=== PATIENT | male | born 1940 | race Caucasian/White ===

== ENCOUNTER 2016-05-12 08:44 | Day surgery (SDC) | payer MEDICARE ==
[2016-04-30 09:49] VITALS: BMI 34.0
[~2016-05-12 08:44] MED LIST: LACTATED RINGERS 1,000 ML IV SCH
[2016-05-12 09:55] LABS: Glucose,Whole Blood 99 mg/dL (75-99)
[2016-05-12 09:57] VITALS: TEMP 97.8
[2016-05-12] MEDS ORDERED: LIDOCAINE 1% 20 ML VIAL (10MG/ML) FOR IV START INTRADERMA ONE (09:57)
[2016-05-12] MEDS ORDERED: BUPIVACAINE (PF) 0.5% 30 ML VIAL ONE (10:12)
[2016-05-12] MEDS ORDERED: LABETALOL 5 MG/ML VIAL MDV ONE (10:12)
[2016-05-12] MEDS ORDERED: TRIAMCINOLONE ACETONIDE 40 MG/ML 1 ML VIAL ONE (10:12)
[2016-05-12] MEDS ORDERED: MIDAZOLAM 2 MG/2 ML VIAL ONE (10:12)
[2016-05-12] MEDS ORDERED: fentaNYL (PF) 50 MCG/ML 2 ML AMP ONE (10:12)
--- NOTE | 2016-05-12 10:53 | P.PCN ---
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 Consent was obtained then he was brought into the procedure room and placed in prone position. Skin was prepped with Betadine 3 and draped in a sterile manner. Lidocaine 1% was used to numb the skin up at the target points that were chosen as follows: The levels above his hardware were chosen and the C-arm was tilted to 20 [place] and about 15 caudad and the target point was at the eye of the Coy which corresponds to the connection between the transverse process and the superior articular process of the vertebra numbered L1, L2, L3. I used 18- gauge 150 mm in length with 10 mm of curved active tip radio frequency ablation needles with this procedure and I placed the active tips as parallel as possible to the medial branches tracks by going in a superior medial direction. AP oblique and lateral views of fluoroscopy were obtained before starting motor stimulation that showed only local twitches of these needles with no radiation of twitching to the right lower extremity. Then I prepared a solution of 2 MLS Marcaine 0.5% +40 mg of Kenalog and 1 mL of the solution was given in each needle. Residency ablation then started for 90 seconds at 80C but the patient felt some pain in his right leg above the knee level does wake the ablation was started on the needles were withdrawn by 1 mm then the ablation was restarted. The needles then were withdrawn by 1 or 2 mm and the bevels were turned 180 after the first session of ablation then second session ablation of was done for 90 seconds at 80C. Patient tolerated procedure well. The blood pressure was high during the procedure and I gave him 5 mg of IV labetalol.
[2016-05-12] MEDS ORDERED: IV FLUID CONTINUATION 1,000 ML IV ONE (11:06)
[2016-05-12 11:11] VITALS: RESP 18
--- NOTE | 2016-05-12 11:12 | FL ---
FLUOROSCOPY 26 seconds of fluoroscopy time were utilized during Pain Injection. 5 images document the procedure.
[2016-05-12 11:49] VITALS: BP 165/71; PULSE 71
== END 2016-05-12 11:55 | disposition home or self-care (01) ==
LOC: ORPAIN 08:44
PROVIDERS: ATTEND Anesthesiology
DX: M47.816 Spondylosis without myelopathy or radiculopathy, lumbar region (principal); M96.1 Postlaminectomy syndrome, not elsewhere classified; L40.50 Arthropathic psoriasis, unspecified; Z88.1 Allergy status to other antibiotic agents; Z79.52 Long term (current) use of systemic steroids
CPT/HCPCS: 64635; 64636 ×2; J2250; J3301; J3010

== ENCOUNTER 2016-06-08 08:50 | Day surgery (SDC) | payer MEDICARE ==
[2016-06-04 11:53] VITALS: BMI 34.9
[2016-06-08 09:45] VITALS: TEMP 98.3
[2016-06-08] MEDS ORDERED: IV FLUID CONTINUATION 1,000 ML IV ONE (09:50)
[2016-06-08] MEDS ORDERED: SODIUM CHLORIDE 0.9% 1,000 ML IV ONE (09:50)
[2016-06-08] MEDS ORDERED: LACTATED RINGERS 1,000 ML IV SCH (10:00)
[2016-06-08] MEDS ORDERED: LIDOCAINE 1% 20 ML VIAL (10MG/ML) FOR IV START SQ ONE (10:09)
[2016-06-08 10:12] LABS: Glucose,Whole Blood 108 mg/dL (75-99)
[2016-06-08] MEDS ORDERED: fentaNYL (PF) 50 MCG/ML 2 ML AMP ONE (10:27)
[2016-06-08] MEDS ORDERED: TRIAMCINOLONE ACETONIDE 40 MG/ML 1 ML VIAL ONE (10:27)
[2016-06-08] MEDS ORDERED: BUPIVACAINE (PF) 0.5% 30 ML VIAL ONE (10:27)
[2016-06-08] MEDS ORDERED: MIDAZOLAM 2 MG/2 ML VIAL ONE (10:27)
--- NOTE | 2016-06-08 11:04 | P.PCN ---
Date of Procedure: 06/08/16 Procedure(s) Performed: PREOPERATIVE DIAGNOSIS: 1-Lumbar Spondylosis with Facet Arthropathy without myelopathy. 2- Lumber degenerative disc disease POSTOPERATIVE DIAGNOSIS: 1- Lumbar Spondylosis with Facet Arthropathy without myelopathy. 2- Lumber degenerative disc disease PROCEDURES : Left Radiofrequency thermocoagulation, L2-3 , L3-L4, L4-L5, and L5 -S1 medial branch, with fluoroscopic guidance ANESTHESIA: IV sedation with versed 2 mg and fentaneyl 100 mcg and local infiltration with lidocaine 1% 6 ml EBL: Minimal PROCEDURE INDICATION: The patient with low back pain secondary to lumbar facet arthropathy who had more than 50% relief of her pain with previous diagnostic lumbar medial branch block with bupivacaine. PROCEDURE DESCRIPTION / TECHNIQUE: The patient was seen and identified in the preoperative area. Risks, benefits, complications, including but not limited to risk of infection ,bleeding , allergic reactions to the medications and no complete pain releife , and alternatives were discussed with the patient, the patient agreed to proceed with the procedure and signed the consent. IV was started. Vital signs remained stable throughout the procedure. Patient was taken to the OR and time out was completed. The patient was placed in the prone position on the procedure table. The lumber area was prepped and draped in the usual sterile fashion. . Vital signs were closely monitored during the procedure .IV sedation was used during the procedure to decrease patients anxiety. Using AP and then oblique fluoroscopy, the ``eye of the Coy dog corresponding to the connection between the superior and transverse articular processes of left L2, L3, L4, and L5 were identified, marked, and localized with 1% lidocaine. Subsequently, a 18 [id number] radiofrequency cannula with a 10-mm active tip was advanced guided by fluoroscopy to each of the ``eyes of the Coy dog at left L2, L3, L4, and L5. Each site then underwent sensory testing at 50 Hz and 0 to 1 volt and motor testing at 2.5 Hz and 0 to 3 volt with local stimulation, but no radicular symptoms down the legs. Thereafter the Left L2-3 , L3-4, L4-5, and L5-S1 sites underwent radiofrequency thermocoagulation at 80 degrees celsius for 90 seconds after injecting 0.5 ml of PF lidocaine 1%. then After the thermocoagulation done , 1 ml of the block solution containing Kenalog 40 mg and 3 ml of marain 0.5% was injected at the Left L2-3 , L3-4 , L4-5 , and L5-S1 , levels after negative aspiration of CSF and blood and with no paresthesias. Cannulas were retracted while injecting lidocaine 1% until the needle is out. At the end of the procedure, the skin was cleansed and bandages were applied. COMPLICATIONS: No acute complications. DISPOSITION / PLANS: The patient was placed in a supine position and transferred to the recovery area in a stable condition for observation and was discharged from the recovery room after meeting discharge criteria. Home discharge instructions given to the patient by the staff. The patient was reexamined prior to discharge. The patient will schedule a follow up in the clinic in 2-4 weeks.
[2016-06-08 11:18] VITALS: RESP 16
[2016-06-08 11:32] VITALS: BP 155/89; PULSE 82
--- NOTE | 2016-06-08 13:35 | FL ---
Fluoroscopy HISTORY: Pain 11 seconds fluoroscopy time supplied to the referring clinician. 2 intraoperative C-arm images docum ent the procedure. See dictated report from anesthesia.
== END 2016-06-08 11:50 | disposition home or self-care (01) ==
LOC: ORPAIN 08:50
PROVIDERS: ATTEND Specialist
DX: M51.36 Other intervertebral disc degeneration, lumbar region (principal); M47.816 Spondylosis without myelopathy or radiculopathy, lumbar region; M46.96 Unspecified inflammatory spondylopathy, lumbar region; I10 Essential (primary) hypertension; F41.9 Anxiety disorder, unspecified; Z88.1 Allergy status to other antibiotic agents; Z88.8 Allergy status to other drugs, medicaments and biological substances
CPT/HCPCS: 64635; 64636 ×3; J2250; J3301; J3010

== ENCOUNTER → 2016-07-12 | Outpatient (CLI) | payer MEDICARE ==
[2016-07-12 13:56] VITALS: BP 128/75; PULSE 85; RESP 16; TEMP 98.2
--- NOTE | 2016-07-12 14:05 | P.PN ---
Progress Note - Text Patient returns for followup for chronic neck and back pain. Patient's neck is improved after cervical fusion. Patient underwent bilateral lumbar RFAs which helped him significantly on the left side but got almost no relief on the right side. Patient takes only tramadol for pain which works well, and denies adverse drug effects from medications. Today, pt denies new-onset weakness, bowel/bladder incontinence, or any other signs or symptoms of cauda equina syndrome. There are no signs of acute intoxication, and no indications of medication diversion or overuse. In addition to above, 13-point review of systems is also negative for chest pain , shortness of breath, changes in vision, changes in hearing, new onset weakness , abdominal pain, diarrhea, extreme fatigue, malaise, fever, skin changes, homicidal or suicidal ideation, or bowel or bladder incontinence. Vital Signs: Reviewed in EMR Gen: WDWN, AAOx3, NAD, in wheelchair, multiple scabs on arms and legs HEENT: NCAT, EOMI, hearing grossly normal Pulm: resp unlabored Abd: soft, NT, ND Neck: supple, trachea midline ROM in flexion lumbar spine: reduced ROM in extension lumbar spine: reduced Lumbar paravertebral tenderness: ++ Facet loading: + bilateral SI joint tenderness: + bilateral Austin's test: neg bilateral Straight leg raise: neg bilateral Neuro: CN II-XII grossly intact, muscle strength lower extremities PRESERVED Imaging: Reviewed in EMR Assessment: 1. lumbar spondylosis without myelopathy 2. chronic pain syndrome Plan: 1. Explanation: Opioid and psychological risk scores were reviewed. Diagnoses , prognoses, and multiple treatment options including but not limited to physical therapy, interventional therapies, adjuvant medical therapies, narcotic medication therapies, and surgery were discussed with the patient and all questions were answered to the patient's satisfaction. 2. Opioid agreement: no opioids prescribed 3. Counseling: The patient was counseled extensively on BODY MASS INDEX, EXERCISE. Specifically, the patient was instructed regarding the importance of obesity and exercise in the context of both chronic pain and overall health. 4. Procedures: right lumbar RFA repeat in November (this is the earliest that his insurance company will let us repeat per Bucky) 5. Consultations: None 6. Investigations: None 7. Medications: None prescribed 8. Disposition: f/u for procedure in 6 months; patient to call approximately two months ahead and schedule R lumbar RFA PQRS measures: 1-Patient's medications are documented in the chart. 2-Tobacco use is negative 3-Patient has had a pneumococcal vaccine. 4-Advanced care planning discussed, patient unable to give. 5-Opioid contract NOT signed with the patient (no meds prescribed) 6-Pain positive, follow-up visit or procedure scheduled 7-Patient's blood pressure measured and documented, and patient will follow up with the primary care due to hypertension. 8-Patient's weight was measured, and body mass index ABOVE the normal limits, and counseling was done. Patient instructed to follow up with PCP. 9-Patient WAS NOT identified as an unhealthy alcohol user.
== END | disposition home or self-care (01) ==
LOC: PNWHC3 13:28
PROVIDERS: ATTEND Anesthesiology
DX: G89.29 Other chronic pain (principal); M47.816 Spondylosis without myelopathy or radiculopathy, lumbar region; I10 Essential (primary) hypertension; Z71.3 Dietary counseling and surveillance; Z79.899 Other long term (current) drug therapy
CPT/HCPCS: 99211

== ENCOUNTER 2016-08-19 13:03 | Inpatient (IN) | payer MEDICARE ==
[2016-08-19] MEDS ORDERED: SODIUM CHLORIDE 0.9% 1,000 ML IV STA (13:35)
[2016-08-19] MEDS ORDERED: SODIUM CHLORIDE 0.9% 500 ML IV STA (13:35)
--- NOTE | 2016-08-19 13:39 | XR ---
EXAMINATION TYPE: XR pelvis AP view DATE OF EXAM: 08/19/2016 1:26 PM COMPARISON: NONE HISTORY: Pain The osseous structures are intact and the joint spaces are preserved. No acute fracture is seen. Vi sualized bowel gas pattern is nonspecific. Postsurgical change lower lumbar spine. Mild diffuse oste openia. Hypertrophic change of the acetabulum. Arthropathy of the hip joints. IMPRESSION: 1. No acute fracture.
--- NOTE | 2016-08-19 13:41 | XR ---
EXAMINATION TYPE: XR chest 1V portable DATE OF EXAM: 08/19/2016 1:26 PM COMPARISON: 04/19/2016 HISTORY: Pain TECHNIQUE: Single frontal view of the chest is obtained. FINDINGS: Subsegmental changes at both lung bases with prominent interstitial pattern. No pneumothor ax. Postsurgical change overlying cervical spine. Arthropathy of the shoulders. IMPRESSION: 1. Subsegmental basilar changes may been the basis of atelectasis rather than pneumonia correlate cli nically. 2. Prominent interstitial central pattern. Correlate for mild venous congestion or pneumonitis. This can occasionally be seen with very poor inspiration which is demonstrated on this film.
--- NOTE | 2016-08-19 13:42 | ED ---
General Adult HPI - General Stated complaint: weakness Time Seen by Provider: 08/19/16 13:21 Source: patient, RN notes reviewed Mode of arrival: EMS Limitations: no limitations - History of Present Illness Initial comments: Patient is a pleasant 76-year-old male presenting to the emergency department for weakness. Patient did fall while using the toilet. Patient thought he may have had some back discomfort earlier however that has resolved. Patient feels somewhat weak all over. Patient admits to having some right leg weakness in addition. Patient states right leg weakness is chronic and unchanged for him. Patient denies any head injury. No loss of consciousness. Patient was too weak to get up on his own. Patient does have C. diff and has been having continued diarrhea. Patient did just recently finished antibiotic however he is unclear which ones. No head injury. No loss of consciousness. No syncope - Related Data Home Medications Medication Instructions Recorded Confirmed Allopurinol [Zyloprim] 100 mg PO BID 01/16/14 08/19/16 Ergocalciferol [Vitamin D2 50,000 units PO DEAL 01/16/14 08/19/16 (DRISDOL)] Furosemide 80 mg PO BID 01/16/14 08/19/16 Leflunomide [Arava] 20 mg PO AC-LUNCH 01/16/14 08/19/16 Multivitamin [Men's Multi-Vitamin] 1 tab PO DAILY 01/16/14 08/19/16 Phosphorus #1 [Phospha 250 Neutral 250 mg PO BID 01/16/14 08/19/16 Tablet] Ranitidine HCl [Zantac] 150 mg PO BID 01/16/14 08/19/16 Tamsulosin HCl [Flomax] 0.4 mg PO BID 01/16/14 08/19/16 Propranolol LA [Inderal LA] 60 mg PO AC-LUNCH 12/17/14 08/19/16 Enalapril [Vasotec] 20 mg PO DAILY 03/27/15 08/19/16 Metolazone [Zaroxolyn] 5 mg PO DEAL 03/27/15 08/19/16 Tacrolimus [Prograf] 2 mg PO DAILY 03/27/15 08/19/16 Calcium Carbonate [Calcium] 600 mg PO DAILY 03/25/16 08/19/16 predniSONE 10 mg PO DAILY 03/25/16 08/19/16 Atorvastatin [Lipitor] 40 mg PO HS 12/11/16 04/13/17 [place]-3 Fatty Acids/Fish Oil [Fish 1,000 mg PO DAILY 04/18/16 08/19/16 Oil 1,000 mg Softgel] Gabapentin [Neurontin] 600 mg PO TID 04/30/16 08/19/16 Edoxaban Tosylate [Savaysa] 30 mg PO DAILY 08/19/16 08/19/16 Ferrous Sulfate [Feosol] 325 mg PO DAILY 08/19/16 08/19/16 Tacrolimus [Prograf] 1 mg PO HS 08/19/16 08/19/16 amLODIPine [Norvasc] 2.5 mg PO DAILY 08/19/16 08/19/16 Allergies Allergy/AdvReac Type Severity Reaction Status Date / Time sumatriptan [From Imitrex] Allergy Swelling Verified 08/19/16 14:27 sumatriptan succinate Allergy Swelling Verified 08/19/16 14:27 [From Imitrex] cephalexin [From Keflex] AdvReac Diarrhea Verified 08/19/16 14:27 Review of Systems ROS Statement: Those systems with pertinent positive or pertinent negative responses have been documented in the HPI. ROS Other: All systems not noted in ROS Statement are negative. Constitutional: Denies: fever Eyes: Denies: eye pain ENT: Denies: ear pain Respiratory: Denies: cough Cardiovascular: Denies: chest pain Endocrine: Reports: fatigue Gastrointestinal: Reports: diarrhea. Denies: abdominal pain Genitourinary: Denies: dysuria Musculoskeletal: Denies: back pain (Resolved) Skin: Denies: rash Neurological: Reports: weakness (Generalized, right leg chronic.) Past Medical History Past Medical History: Cancer, Hearing Disorder / Deafness, Hyperlipidemia, Hypertension, Musculoskeletal Disorder, Renal Disease Additional Past Medical History / Comment(s): HX SKIN CA. psoriatic arthritis. nephrotic syndrome. chronic back pain. DENIES GOUT. PAST HX OF MIGRAINES. HX iron infusion. patient states he is pre-diabetic. EDEMA PETROS LOWER LEGS, ANKLES. History of Any Multi-Drug Resistant Organisms: None Reported Past Surgical History: Back Surgery, Hernia Repair, Orthopedic Surgery Additional Past Surgical History / Comment(s): L4-5 LUMBAR FUSION. NECK FUSION. RT ROTATOR CUFF. Surgical scar from skin cancer/surgery on right side of head. MULT PAIN PROC, LAST 05/12/16. Past Anesthesia/Blood Transfusion Reactions: No Reported Reaction Past Psychological History: No Psychological Hx Reported Additional Psychological History / Comment(s): lives in the family home with his . 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 No experience. No international travel. No animal exposures. No ill contacts. Denies any significant tobacco or alcohol use. No recreational drug use. Smoking Status: Never smoker Past Alcohol Use History: None Reported Past Drug Use History: None Reported - Past Family History Sister(s) Family Medical History: Cancer Additional Family Medical History / Comment(s): mother-- HTN. brother-- Diabetes, kidney problems General Exam Limitations: no limitations General appearance: alert, in no apparent distress Head exam: Present: atraumatic, normocephalic Eye exam: Present: normal appearance, PERRL, EOMI. Absent: nystagmus ENT exam: Present: mucous membranes dry Neck exam: Present: normal inspection Respiratory exam: Present: normal lung sounds bilaterally Cardiovascular Exam: Present: tachycardia GI/Abdominal exam: Present: soft. Absent: tenderness Extremities exam: Present: pedal edema (+2 bilaterally). Absent: calf tenderness Back exam: Present: normal inspection. Absent: tenderness, paraspinal tenderness, vertebral tenderness Neurological exam: Present: alert, CN II-XII intact Expanded Speech: Present: fluid speech Motor strength exam: RUE: 5, LUE: 5, RLE: 5, LLE: 3 Eye Response: (4) open spontaneously Motor Response: (6) obeys commands Verbal Response: (5) oriented Psychiatric exam: Present: normal affect, normal mood Skin exam: Absent: rash Course Vital Signs 08/19/16 13:04 Temperature 99.1 F Pulse Rate 85 Respiratory 18 Rate Blood Pressure 138/90 O2 Sat by Pulse 98 Oximetry - Reevaluation(s) Reevaluation #1: 08/19/16 13:21 Dr. Lanza notified 08/19/16 14:21 Case was again discussed with Dr. Lanza for the third time and he agrees patient can be drowned graded and no longer a trauma patient. EKG Findings - EKG Comments: EKG Findings:: Sinus tachycardia 129. PVC is present. AZ 120. QRS 134. QT 422. QTC 418. Right axis. Nonspecific intraventricular block. Inferior inverted T waves. Lateral inverted T waves. Medical Decision Making - Medical Decision Making Patient reevaluated and resting comfortably in bed. Patient and family updated on results and plan. states patient was just diagnosed with C. diff around 10 days ago. Patient finished 1 week of Flagyl. Symptoms seemed to improve however have seemed to worsen again. Has had multiple episodes of diarrhea. Patient is generally weak - Lab Data Result diagrams: 08/19/16 14:25 08/19/16 14:25 Lab Results 08/19/16 08/19/16 08/19/16 Range/Units 14:25 14:25 14:25 WBC 9.3 (3.8-10.6) k/uL RBC 3.43 L (4.30-5.90) m/uL Hgb 10.3 L (13.0-17.5) gm/dL Hct 32.9 L (39.0-53.0) % MCV 96.0 (80.0-100.0) fL MCH 30.1 (25.0-35.0) pg MCHC 31.4 (31.0-37.0) g/dL RDW 16.2 H (11.5-15.5) % Plt Count 157 (150-450) k/uL Neutrophils % 87 % Lymphocytes % 3 % Monocytes % 7 % Eosinophils % 1 % Basophils % 0 % Neutrophils # 8.0 H (1.3-7.7) k/uL Lymphocytes # 0.3 L (1.0-4.8) k/uL Monocytes # 0.7 (0-1.0) k/uL Eosinophils # 0.1 (0-0.7) k/uL Basophils # 0.0 (0-0.2) k/uL Anisocytosis Slight PT 10.2 (9.0-12.0) sec INR 1.0 (<1.1) APTT 22.0 (22.0-30.0) sec Sodium 141 (137-145) mmol/L Potassium 3.1 L (3.5-5.1) mmol/L Chloride 104 (98-107) mmol/L Carbon Dioxide 31 H (22-30) mmol/L Anion Gap 6 mmol/L BUN 59 H (9-20) mg/dL Creatinine 2.20 H (0.66-1.25) mg/dL Est GFR (MDRD) Af Amer 36 (>60 ml/min/1.73 sqM) Est GFR (MDRD) Non-Af 29 (>60 ml/min/1.73 sqM) Glucose 117 H (74-99) mg/dL Calcium 7.6 L (8.4-10.2) mg/dL Phosphorus 3.9 (2.5-4.5) mg/dL Magnesium 2.0 (1.6-2.3) mg/dL Total Bilirubin 0.5 (0.2-1.3) mg/dL AST 33 (17-59) U/L ALT 44 (21-72) U/L Alkaline Phosphatase 80 (38-126) U/L Total Creatine Kinase (55-170) U/L CK-MB (CK-2) (0.0-2.4) ng/mL CK-MB (CK-2) Rel Index Troponin I (0.000-0.034) ng/mL NT-Pro-B Natriuret Pep pg/mL Total Protein 4.8 L (6.3-8.2) g/dL Albumin 2.4 L (3.5-5.0) g/dL Urine Color Urine Appearance (Clear) Urine pH (5.0-8.0) Ur Specific [place] (1.001-1.035) Urine Protein (Negative) Urine Glucose (UA) (Negative) Urine Ketones (Negative) Urine Blood (Negative) Urine Nitrite (Negative) Urine Bilirubin (Negative) Urine Urobilinogen (<2.0) mg/dL Ur Leukocyte Esterase (Negative) Urine RBC (0-5) /hpf Urine WBC (0-5) /hpf Ur Squamous Epith Cells (0-4) /hpf Amorphous Sediment (None) /hpf Hyaline Casts (0-2) /lpf Urine Mucus (None) /hpf Urine Opiates Screen (NotDetected) Ur Oxycodone Screen (NotDetected) Urine Methadone Screen (NotDetected) Ur Propoxyphene Screen (NotDetected) Ur Barbiturates Screen (NotDetected) U Tricyclic Antidepress (NotDetected) Ur Phencyclidine Scrn (NotDetected) Ur Amphetamines Screen (NotDetected) U Methamphetamines Scrn (NotDetected) U Benzodiazepines Scrn (NotDetected) Urine Cocaine Screen (NotDetected) U Marijuana (THC) Screen (NotDetected) 08/19/16 08/19/16 08/19/16 Range/Units 14:25 14:25 14:45 WBC (3.8-10.6) k/uL RBC (4.30-5.90) m/uL Hgb (13.0-17.5) gm/dL Hct (39.0-53.0) % MCV (80.0-100.0) fL MCH (25.0-35.0) pg MCHC (31.0-37.0) g/dL RDW (11.5-15.5) % Plt Count (150-450) k/uL Neutrophils % % Lymphocytes % % Monocytes % % Eosinophils % % Basophils % % Neutrophils # (1.3-7.7) k/uL Lymphocytes # (1.0-4.8) k/uL Monocytes # (0-1.0) k/uL Eosinophils # (0-0.7) k/uL Basophils # (0-0.2) k/uL Anisocytosis PT (9.0-12.0) sec INR (<1.1) APTT (22.0-30.0) sec Sodium (137-145) mmol/L Potassium (3.5-5.1) mmol/L Chloride (98-107) mmol/L Carbon Dioxide (22-30) mmol/L Anion Gap mmol/L BUN (9-20) mg/dL Creatinine (0.66-1.25) mg/dL Est GFR (MDRD) Af Amer (>60 ml/min/1.73 sqM) Est GFR (MDRD) Non-Af (>60 ml/min/1.73 sqM) Glucose (74-99) mg/dL Calcium (8.4-10.2) mg/dL Phosphorus (2.5-4.5) mg/dL Magnesium (1.6-2.3) mg/dL Total Bilirubin (0.2-1.3) mg/dL AST (17-59) U/L ALT (21-72) U/L Alkaline Phosphatase (38-126) U/L Total Creatine Kinase 143 (55-170) U/L CK-MB (CK-2) 1.4 (0.0-2.4) ng/mL CK-MB (CK-2) Rel Index 1.0 Troponin I 0.120 H* (0.000-0.034) ng/mL NT-Pro-B Natriuret Pep 90831 pg/mL Total Protein (6.3-8.2) g/dL Albumin (3.5-5.0) g/dL Urine Color Yellow Urine Appearance Cloudy (Clear) Urine pH 6.0 (5.0-8.0) Ur Specific [place] 1.014 (1.001-1.035) Urine Protein 3+ H (Negative) Urine Glucose (UA) Negative (Negative) Urine Ketones Negative (Negative) Urine Blood Moderate H (Negative) Urine Nitrite Negative (Negative) Urine Bilirubin Negative (Negative) Urine Urobilinogen <2.0 (<2.0) mg/dL Ur Leukocyte Esterase Negative (Negative) Urine RBC >182 H (0-5) /hpf Urine WBC 6 H (0-5) /hpf Ur Squamous Epith Cells 1 (0-4) /hpf Amorphous Sediment Few H (None) /hpf Hyaline Casts 47 H (0-2) /lpf Urine Mucus Rare H (None) /hpf Urine Opiates Screen Not Detected (NotDetected) Ur Oxycodone Screen Not Detected (NotDetected) Urine Methadone Screen Not Detected (NotDetected) Ur Propoxyphene Screen Not Detected (NotDetected) Ur Barbiturates Screen Not Detected (NotDetected) U Tricyclic Antidepress Not Detected (NotDetected) Ur Phencyclidine Scrn Not Detected (NotDetected) Ur Amphetamines Screen Not Detected (NotDetected) U Methamphetamines Scrn Not Detected (NotDetected) U Benzodiazepines Scrn Not Detected (NotDetected) Urine Cocaine Screen Not Detected (NotDetected) U Marijuana (THC) Screen Not Detected (NotDetected) - Radiology Data Radiology results: report reviewed (Computed tomography scan of the brain shows no acute process), image reviewed (Chest x-ray does show some vascular congestion. Atelectasis versus infiltrate. Pelvic x-ray shows no acute process ) Disposition Clinical Impression: C. difficile diarrhea, Congestive heart failure Disposition: [facility] Condition: Serious
--- NOTE | 2016-08-19 14:26 | CT ---
EXAMINATION TYPE: CT brain wo con DATE OF EXAM: 08/19/2016 2:17 PM COMPARISON: NONE INDICATION: weakness DLP: 1029.9 mGycm, Automated exposure control for dose reduction was used. CONTRAST: None CT of the brain is performed utilizing 3 mm thick sections through the posterior fossa and 3 mm thick sections through the remaining calvarium. Study is performed within 24 hours of arrival to the hosp [facility]. No abnormal hyperdensity is present to suggest an acute intracranial hemorrhage. No mass lesion is evident. No acute infarcts are evident. Periventricular white matter hypodensity is present, likely on the bas is of chronic white matter ischemic changes. Ventricles and sulci are prominent for the patient age. Paranasal sinuses are clear. There are fluid-filled mastoid air cells bilaterally compatible with mas toiditis. No septal destruction is evident. IMPRESSIONS: 1. Atrophy with periventricular white matter ischemic changes. 2. Bilateral mastoiditis
[2016-08-19 14:43] LABS: Anisocytosis Slight; Basophils % (A) 0 %; CH 30.6; CHCM 31.9; Eosinophils # (A) 0.1 k/uL (0-0.7); Eosinophils % (A) 1 %; HCT 32.9 % (39.0-53.0); HDW 2.33; HGB 10.3 gm/dL (13.0-17.5); Luc # (Auto) 0.15; Luc % (Auto) 2; Lymphocytes # (A) 0.3 k/uL (1.0-4.8); Lymphocytes % (A) 3 %; MCH 30.1 pg (25.0-35.0); MCHC 31.4 g/dL (31.0-37.0); Mean Platelet Volume 8.2; Monocytes # (A) 0.7 k/uL (0-1.0); Monocytes % (A) 7 %; Neutrophils % (A) 87 %; RBC 3.43 m/uL (4.30-5.90); RDW 16.2 % (11.5-15.5); WBC 9.3 k/uL (3.8-10.6); WBC (Perox) 9.86
[2016-08-19 14:50] LABS: Prothrombin Time 10.2 sec (9.0-12.0)
[2016-08-19 14:52] LABS: Calcium 7.6 mg/dL (8.4-10.2); Phosphorous 3.9 mg/dL (2.5-4.5); Total Bilirubin 0.5 mg/dL (0.2-1.3); Total Protein 4.8 g/dL (6.3-8.2)
[2016-08-19 15:01] LABS: Potassium 3.1 mmol/L (3.5-5.1)
[2016-08-19 15:16] LABS: Amorphous Sediment,Urine Few /hpf; Appearance,Urine Cloudy (Clear); Bilirubin,Urine Negative (Negative); Glucose,Urine (UA) Negative (Negative); Ketones,Urine Negative (Negative); Leukocyte Esterase,Urine Negative (Negative); Mucus,Urine Rare /hpf; Nitrite,Urine Negative (Negative); Particle Count 6488; Protein,Urine 3+ (Negative); RBC,Urine >182 /hpf (0-5); Specific Gravity,Urine 1.014 (1.001-1.035); Squamous Epithelial Cell,Urine 1 /hpf (0-4); UA Billing (MACRO vs. MICRO) MICRO; Urobilinogen,Urine <2.0 mg/dL (<2.0); WBC,Urine 6 /hpf (0-5)
[2016-08-19 15:21] LABS: Creatine Kinase MB 1.4 ng/mL (0.0-2.4)
[2016-08-19 15:24] LABS: Troponin I 0.12 ng/mL (0.000-0.034)
[2016-08-19] MEDS ORDERED: ASPIRIN 325 MG TAB PO STA (17:40)
[2016-08-19] MEDS ORDERED: NITROGLYCERIN OINT 1 INCH/GM PACKET TOPICAL STA (18:07)
[2016-08-19] MEDS ORDERED: metroNIDAZOLE 500 MG TAB PO STA (18:07)
[2016-08-19] MEDS: POTASSIUM CHLORIDE ER 20 MEQ TAB.ER PO SCH ×2 (19:14→22:56)
[2016-08-19] MEDS ORDERED: NITROGLYCERIN OINT 1 INCH/GM PACKET TOPICAL SCH (22:00)
[2016-08-19] MEDS: FUROSEMIDE 10 MG/ML 4 ML VIAL IV SCH (22:09)
[2016-08-19] MEDS: HEPARIN SODIUM,PORCINE 5,000 UNIT/ML 1 ML VIAL SQ SCH (22:09)
[2016-08-19] MEDS ORDERED: TAMSULOSIN 0.4 MG CAP.ER.24H PO ONE (22:45)
[2016-08-19] MEDS ORDERED: ALLOPURINOL 100 MG TAB ONE (22:45)
[2016-08-19] MEDS ORDERED: TACROLIMUS 1 MG CAP ONE (22:45)
[2016-08-19] MEDS: ATORVASTATIN 40 MG TAB PO SCH (23:00)
[2016-08-19] MEDS: GABAPENTIN 300 MG CAP PO SCH (23:00)
[2016-08-20] MEDS: ALLOPURINOL 100 MG TAB PO SCH ×3 (06:22→21:03)
[2016-08-20] MEDS: TACROLIMUS 1 MG CAP PO SCH ×3 (06:22→21:04)
[2016-08-20] MEDS: TAMSULOSIN 0.4 MG CAP.ER.24H PO SCH ×3 (06:23→21:04)
[2016-08-20 06:49] LABS: Calcium 7.5 mg/dL (8.4-10.2); Potassium 3.8 mmol/L (3.5-5.1)
--- NOTE | 2016-08-20 06:57 | HP ---
DATE OF ADMISSION: 08/19/2016 PRESENTING COMPLAINT: Diarrhea. Weak and tired. HISTORY OF PRESENTING COMPLAINT: A very pleasant 76-year-old patient of Dr. Hall whose chronic stable medical conditions include hypertension, osteoarthritis, chronic kidney disease, nephrotic syndrome, just finished a course of antibiotics for cellulitis. Patient since yesterday started to have multiple soup like loose stools. No abdominal pain. Weak, tired, and rundown. Unable to get up. Appetite has gone down. Normally uses a cane, walker or a wheelchair to get about. REVIEW OF SYSTEMS: CONSTITUTIONAL: Weak and tired. HEENT: Decreased hearing. RESPIRATORY: None. CARDIOVASCULAR: None. GASTROINTESTINAL: As above. No nausea or vomiting. GENITOURINARY: None. MUSCULOSKELETAL: Pain in different joints. Dermatological: Dry skin. HEMATOLOGICAL: None. LYMPHATIC: None. PSYCHIATRY: None. NEUROLOGICAL: None. Past history of decreased hearing, Hypertension, osteoarthritis, ( ), chronic kidney disease, psoriatic arthritis, nephrotic syndrome, gout. PAST SURGICAL HISTORY: Back surgery, hernia repair, L5 lumbar fusion, right rotator cuff surgical cuff, skin cancer. SOCIAL HISTORY: No smoking. No alcohol. . FAMILY HISTORY: Mother had hypertension, brother had diabetes, kidney problems. HOME MEDICATIONS: 1. Savaysa 30 mg p.o. daily. 2. Norvasc 2.5 mg p.o. daily. 3. Neurontin 600 mg p.o. t.i.d. 4. Iron 325 mg p.o. daily. 5. Prednisone 10 mg p.o. daily. 6. Flomax 0.4 mg p.o. b.i.d. 7. Prograf 1 mg p.o. q.h.s., 2 mg p.o. daily. 8. Zantac 150 mg p.o. b.i.d. 9. Inderal LA 60 mg p.o. before lunch. 10. PhosLo 250, 250 mg p.o. b.i.d. 11. Fish oil 1000 mg p.o. daily. 12. Men's Multivitamin 1 tablet p.o. daily. 13. Zaroxolyn 5 mg p.o. on Tuesday. 14. Araba 20 mg before lunch. 15. Lasix 80 mg p.o. b.i.d. 16. Vitamin D2, 50,000 units p.o. Tuesday. 17. Vasotec 10 mg p.o. daily. 18. Calcium 600 mg p.o. daily. 19. Lipitor 40 mg p.o. q.h.s. 20. Allopurinol 100 mg p.o. b.i.d. ALLERGIES TO IMITREX AND KEFLEX. On examination, temperature 99.1, pulse 85, respirations 18, blood pressure 130/90, pulse ox 98% on 2 liters. GENERAL APPEARANCE: Overweight. BMI of ( ). Tired-appearing. EYES: Pupils equal. Conjunctivae normal. HEENT: External appearance of nose and ears normal. Oral cavity dry mucous membranes. NECK: JVD not raised. Mass not palpable. RESPIRATORY: Effort normal. LUNGS: Fair air entry. CARDIOVASCULAR: First and second sounds normal. Minimal edema. ABDOMEN: Distended, soft. Liver and spleen not palpable. LYMPHATIC: No lymph nodes palpable in or axillae. PSYCHIATRY: Alert and oriented x3. Mood and affect normal. NEUROLOGICAL: Pupils equal. Cranial nerves grossly intact. Power and sensation grossly intact. EXTREMITIES: The patient has got short digits. INVESTIGATIONS: White count 9.3, hemoglobin 10.3, potassium 3.1. BUN 59, creatinine 2.20. Patient's BUN and creatinine were 63 and 2.02 back on 04/21/16. Troponin 0.120, 0.151. ASSESSMENT: 1. Acute severe diarrhea in a patient who was just finished a course of antibiotics. The patient has no fever, no white count. Most likely this is antibiotic associated diarrhea, highly doubt C. difficile. 2. 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 3. Nephrotic syndrome causing hyperalbuminemia. 4. Troponin leak in the setting of renal failure, not of any clinical significance as the patient has no chest pain. 5. Essential hypertension. 6. Primary osteoarthritis of multiple joints. 7. Psoriatic arthritis. 8. Acute renal failure, dehydration from severe diarrhea. 9. Hypokalemia. PLAN: Patient will be given IV fluids. Stool was sent for C. difficile. Home medications are reviewed. Patient will be given IV fluids. We will discontinue the patient's nitrate. The patient does not need further cardiac work-up. Do expect patient to respond to hydration. Will also send stool for ova parasites and fecal leukocytes. Care was discussed with the patient. Copy to Dr. Hall.
[2016-08-20] MEDS ORDERED: ASPIRIN 325 MG TAB PO SCH (09:00)
[2016-08-20] MEDS ORDERED: metroNIDAZOLE 500 MG TAB PO SCH (09:00)
[2016-08-20] MEDS ORDERED: FAMOTIDINE 20 MG TAB PO SCH (09:00)
[2016-08-20] MEDS: HEPARIN SODIUM,PORCINE 5,000 UNIT/ML 1 ML VIAL SQ SCH ×2 (10:12→16:25)
[2016-08-20] MEDS: FUROSEMIDE 10 MG/ML 4 ML VIAL IV SCH ×2 (10:12→21:03)
[2016-08-20] MEDS: amLODIPine 2.5 MG TAB PO SCH (10:13)
[2016-08-20] MEDS: EDOXABAN TOSYLATE 30 MG TABLET PO SCH (10:14)
[2016-08-20] MEDS: GABAPENTIN 300 MG CAP PO SCH ×3 (10:14→21:04)
[2016-08-20] MEDS: CALCIUM CARBONATE 500 MG CHEWABLE PO SCH (10:14)
[2016-08-20] MEDS: POTASSIUM CHLORIDE ER 20 MEQ TAB.ER PO SCH ×2 (10:15→21:17)
[2016-08-20] MEDS: LISINOPRIL 10 MG TAB PO SCH (10:15)
[2016-08-20] MEDS: predniSONE 10 MG TAB PO SCH (10:15)
--- NOTE | 2016-08-20 11:16 | CONS ---
DATE OF CONSULTATION: 08/20/2016 Reason for consult is renal failure. 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 He was admitted to the hospital with complaints of weakness. He had also been having diarrhea. Patient was recently diagnosed with C. diff colitis as outpatient after course of antibiotics that he had taken for cellulitis. At the same time, patient also had a urinary tract infection as outpatient and was given 3 days of Cipro and completed a course of Flagyl for C. diff colitis. He stated that his diarrhea did not improve significantly, and therefore he came into the hospital. This morning the patient states he is feeling better. He has received IV fluids. The C. diff toxin was negative in the hospital and patient states he has not had any diarrhea today. PAST MEDICAL HISTORY: CKD stage IV, secondary to FSGS, severe osteoarthritis, history of psoriatic arthritis, history of gout, hypertension, severe cervical spine disease, status post recent surgery, history of neuropathy, hypertension, hyperlipidemia, migraines, history of skin cancer. PAST SURGICAL HISTORY: Back surgery, cervical spine surgery, hernia repair, orthopedic surgery. Social history is negative for smoking, drug abuse or alcohol abuse. Patient lives at home with his . Medications at home prior to admission included vitamin D2, Zyloprim, Arava, Lasix, Neutra-Phos, Zantac, Flomax, Inderal, Vasotec, Zaroxolyn, Prograf, calcium, prednisone, Lipitor, Neurontin, Savaysa, iron, Prograf, Norvasc. Allergies include IMITREX, KEFLEX. REVIEW OF SYSTEMS: As per HPI. Other systems negative. On examination, patient is comfortable, awake, alert, oriented x3, not in any acute distress. Blood pressure is 138/78, heart rate 102 per minute. He is afebrile. Examination of the heart, S1 and S2. Examination of the lungs, bilateral breath sounds are heard. Abdomen is soft, obese, nontender. Examination of lower extremities shows edema 2+ bilaterally. 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 Patient is moving all 4 extremities. Labs show sodium 142, potassium 3.8, BUN 59, serum creatinine 2.1. Troponin was 0.117, UA shows more than 182 RBCs, WBCs 6, 3+ protein, C. diff toxin was negative. ASSESSMENT: 1. Acute kidney injury, likely prerenal. Patient is status post IV fluids. He is maintained on Lasix 40 mg q.8 hours. I will decrease the Lasix. 2. Chronic kidney disease, stage IV, secondary to FSGS, maintained on Prograf as outpatient. Patient is also maintained on RICK inhibitors, which we continue. His creatinine has been at about 1.7 to 1.8 mg/dL, therefore he is a little bit up with mild acute kidney injury. 3. Recent Clostridium difficile colitis as outpatient, status post Flagyl. Current Clostridium difficile toxin is negative. 4. Hematuria. 5. Elevated troponins, rule out cardiac ischemia. PLAN: 1. Decrease Lasix, continue with Prograf, encourage increased oral intake. Repeat labs in the a.m. Avoid significant hypotension. May need to consider decreasing dose of RICK inhibitors if blood pressure remains on the lower side. At this time, he can continue the current dose. 2. Chronic lower extremity edema secondary to underlying nephrotic syndrome from FSGS, maintained on Prograf with some control in his proteinuria. 3. Benign prostatic hypertrophy, continue with the Flomax. PLAN: Decrease Lasix, encourage increased oral intake. Repeat labs in a.m. Thank you for this consultation. Will continue to follow the patient with you during his hospitalization.
[2016-08-20] MEDS: LEFLUNOMIDE 20 MG TAB PO SCH (12:21)
[2016-08-20] MEDS: PROPRANOLOL LA 60 MG CAP.SA.24H PO SCH (12:21)
--- NOTE | 2016-08-20 14:52 | CONS ---
DATE OF CONSULTATION: Mr. Jaiden Chadwick is a 76-year-old gentleman who sees Dr. Shraddha Case in the outpatient setting. This gentleman has focal segmental, glomerular sclerosis with chronic kidney disease stage IV. He also has a diagnosis of Clostridium difficile cellulitis in the past. He came into the hospital with complaints of diarrhea, feeling weak, tired and exhausted. He also complained of some shortness of breath as well. Apparently, when he was on the toilet he actually fell and some back discomfort. It is unclear if he just tripped and fell, he did not lose any consciousness. He felt very weak and because of diarrhea, he seemed to have been a bit dehydrated as well. After arrival, he was found to have elevated BNP and also borderline troponin elevation and we were asked to see him in this regard. Patient denies chest pain, his shortness of breath is better. His main complaint is fatigue and lack of energy. His troponin profile of 0.1 and 0.1 suggests that this is not myocardial injury, probably reflects his chronic kidney disease. Previous admissions in April also had similar elevated troponins which were flat in pattern. Past medical history is remarkable for focal segmental glomerular sclerosis, hypertension, hyperlipidemia, diastolic heart failure, psoriatic arthritis, nephrotic syndrome, migraine headaches, history of back surgery. Medications at home include iron supplements, Prograf, amlodipine, Inderal LA, Flomax, prednisone, atorvastatin 40 mg daily, Enalapril 20 mg daily, metolazone 5 mg daily and he also takes Lasix 80 mg b.i.d. and allopurinol. On examination, his blood pressure is 130/80, pulse rate is about 90 per minute, regular. HEENT: Unremarkable. Fundus was not examined by me. Neck is supple. There is JVD of 1 to 2 cm, no carotid bruit. Heart exam reveals S1, S2, distant heart sounds. Lungs reveal diminished air entry in bilateral lung stratton. Abdomen is distended, nontender. Lower extremities reveal 1 to 2+ edema bilaterally. EKG initially revealed what seems to be sinus with a lot of artifact, IVCD, PACs, repeat EKG shows more clear-cut sinus mechanism. Laboratory data revealed elevated BNP and a flatly elevated troponin profile. IMPRESSION: 1. Exacerbation of diastolic heart failure. 2. Diarrhea. 3. History of chronic kidney disease. 4. History of paroxysmal atrial fibrillation on Savaysa 30 mg daily, but now patient appears to be in sinus rhythm this morning. RECOMMENDATION: I am recommending that we cautiously diurese him, continue all his other medications and based on his clinical course, I will make further recommendations. We will continue the other medications and reduce the aspirin to 81 mg daily. We will also discontinue the nitro paste. His echo from April revealed preserved systolic function. Based on clinical course, I will make further recommendations. Thank you very much for the consult.
[2016-08-20 15:07] VITALS: BMI 36.3
[2016-08-20] MEDS: DIPHENOX-ATROP 2.5-0.025 MG 1 EACH TAB PO SCH ×3 (16:24→21:04)
--- NOTE | 2016-08-20 20:04 | PN ---
DATE OF SERVICE: 08/20/2016 PRESENTING COMPLAINT: Diarrhea. INTERVAL HISTORY: This is a patient with multiple problems, admitted with acute diastolic CHF and acute severe diarrhea. C difficile is negative. Still having liquid stools. Feeling weak and tired. Eating a little bit. Review of systems done for constitutional, cardiovascular, GI, pulmonary; relevant findings as above. Current medications are reviewed that include IV Lasix. On examination, temperature 98.1, pulse 92, respiration 17, blood pressure 120/71, pulse ox 98% on 2 L. GENERAL APPEARANCE: Lying flat. EYES: Pupils equal. Conjunctivae normal. NECK: JVD not raised. Mass not palpable. RESPIRATORY: Effort normal. LUNGS: Decreased breath sounds. CARDIOVASCULAR: First and second sounds normal. No edema. ABDOMEN: Distended, soft. Liver and spleen not palpable. PSYCHIATRY: Alert and oriented x3. Mood and affect normal. INVESTIGATIONS: Potassium 3.8. BUN 59, creatinine 2.11. Troponin 0.117. ASSESSMENT: 1. Acute antibiotic-associated diarrhea, negative for Clostridium difficile, uncontrolled. 2. Chronic kidney disease, stage III, from nephrosclerosis. 3. Nephrotic syndrome causing hypoalbuminemia. 4. Troponin leak in the setting of renal failure. 5. Essential hypertension. 6. Primary osteoarthritis of multiple joints. 7. Psoriatic arthritis. 8. Hypokalemia. 9. Acute congestive heart failure from diastolic dysfunction; ejection fraction preserved. PLAN: Given that the patient is still having significant diarrhea, will be careful with patient's electrolytes. Repeat labs in the morning. Will also add Lomotil. Will put the patient on a full-liquid diet and follow.
[2016-08-20] MEDS: ATORVASTATIN 40 MG TAB PO SCH (21:03)
[2016-08-21] MEDS: HEPARIN SODIUM,PORCINE 5,000 UNIT/ML 1 ML VIAL SQ SCH ×2 (00:14→09:00)
[2016-08-21 06:19] LABS: Calcium 7.7 mg/dL (8.4-10.2); Potassium 3.7 mmol/L (3.5-5.1)
[2016-08-21] MEDS: TAMSULOSIN 0.4 MG CAP.ER.24H PO SCH ×2 (09:00→21:42)
[2016-08-21] MEDS: ALLOPURINOL 100 MG TAB PO SCH ×2 (09:01→21:42)
[2016-08-21] MEDS: ASPIRIN 81 MG CHEW PO SCH (09:09)
[2016-08-21] MEDS: FAMOTIDINE 20 MG TAB PO SCH (09:09)
[2016-08-21] MEDS: CALCIUM CARBONATE 500 MG CHEWABLE PO SCH (09:09)
[2016-08-21] MEDS: EDOXABAN TOSYLATE 30 MG TABLET PO SCH (09:10)
[2016-08-21] MEDS: FUROSEMIDE 10 MG/ML 4 ML VIAL IV SCH ×2 (09:10→21:42)
[2016-08-21] MEDS: amLODIPine 2.5 MG TAB PO SCH (09:56)
[2016-08-21] MEDS: POTASSIUM CHLORIDE ER 20 MEQ TAB.ER PO SCH ×2 (09:57→21:42)
[2016-08-21] MEDS: LISINOPRIL 10 MG TAB PO SCH (09:57)
[2016-08-21] MEDS: GABAPENTIN 300 MG CAP PO SCH ×3 (09:57→21:42)
[2016-08-21] MEDS: TACROLIMUS 1 MG CAP PO SCH ×2 (09:57→21:42)
[2016-08-21] MEDS: predniSONE 10 MG TAB PO SCH (09:57)
--- NOTE | 2016-08-21 11:12 | P.PN ---
Subjective Principal diagnosis: Diastolic congestive heart failure This is a 76-year-old gentleman who follows regularly with Dr. VC Case in the office. He presented to the hospital with symptoms of weakness and diarrhea, he was also found to be in mild congestive heart failure, diastolic in nature. History is significant for hypertension, hyperlipidemia, paroxysmal atrial fibrillation, on Savaysa at home, chronic kidney disease. Patient has been diuresing well on IV Lasix, his creatinine today is 1.8, down from 2.1 yesterday. According to the , he has not yet had coverage for Savaysa and has been using samples until this point. She states that he is covered for Eliquis. We will have case management check on this, if so we will switch him over to Eliquis 2-/2 daily. Patient has been on heparin since it admission here we will also discontinue that as he is on an anticoagulant. Overall the patient does say that he's feeling better, lying flat in bed at the time of our examination, quite comfortable. Objective - Vital Signs Vital signs: Vital Signs Temp 97.4 F L 08/21/16 00:00 Pulse 69 08/21/16 04:00 Resp 16 08/21/16 04:00 BP 152/89 08/21/16 00:00 Pulse Ox 97 08/21/16 04:00 Intake & Output 08/20/16 08/21/16 08/21/16 18:59 06:59 18:59 Intake Total 930 495 Balance 930 495 Weight 108.5 kg 110 kg Intake: IV 40 Invasive Line 1 30 Sodium Chloride 0.9% 500 10 ml @ 999 mls/hr IV .Q31M STA Rx#:[id number] Oral 890 495 Other: Voiding Method Urinal Urinal # Voids 1 1 1 # Bowel Movements 1 - Exam PHYSICAL EXAMINATION: HEENT: Head is atraumatic, normocephalic. Pupils equal, round. Neck is supple. There is no elevated jugular venous pressure. HEART EXAMINATION: S1 and S2 irregularly irregular, systolic murmur is heard. CHEST EXAMINATION: Lungs are clear with fine crackles to posterior bases. ABDOMEN: Soft, the skin, nontender. Bowel sounds are heard. No organomegaly noted. EXTREMITIES: 2+ peripheral pulses with one plus evidence of peripheral edema and no calf tenderness noted. NEUROLOGIC patient is awake, alert and oriented -3. . - Labs CBC & Chem 7: 08/19/16 14:25 08/21/16 05:43 Labs: Abnormal Lab Results - Last 24 Hours (Table) 08/21/16 Range/Units 05:43 Chloride 108 H (98-107) mmol/L BUN 54 H (9-20) mg/dL Creatinine 1.80 H (0.66-1.25) mg/dL Glucose 118 H (74-99) mg/dL Calcium 7.7 L (8.4-10.2) mg/dL Microbiology - Last 24 Hours (Table) 08/20/16 01:25 Stool for WBCs - Final Stool Assessment and Plan (1) Diastolic CHF, acute on chronic Status: Acute (2) Renal failure (ARF), acute on chronic Status: Acute (3) Paroxysmal a-fib Status: Acute (4) HTN (hypertension) Status: Acute (5) Hyperlipemia Status: Acute (6) Elevated troponin Status: Acute (7) C. difficile diarrhea Status: Acute (8) Left leg cellulitis Status: Acute Plan: From cardiology's perspective, we will recommend to continue current dose of IV Lasix. We will discontinue the patient's Savaysa and initiate Eliquis 2-1/2 mg one tablet by mouth twice a day. Continue other medications. DNP note has been reviewed, I agree with a documented findings and plan of care. Patient was seen and examined.
[2016-08-21] MEDS: APIXABAN 2.5 MG TABLET PO SCH ×2 (11:56→21:42)
[2016-08-21] MEDS: LEFLUNOMIDE 20 MG TAB PO SCH (11:59)
[2016-08-21] MEDS: PROPRANOLOL LA 60 MG CAP.SA.24H PO SCH (12:02)
--- NOTE | 2016-08-21 17:44 | PN ---
Patient is seen for followup for acute kidney injury on top of chronic kidney disease. He has underlying CKD stage IV, secondary to FSGS with nephrotic range proteinuria and maintained on Prograf. There was evidence of volume overload. Currently patient is maintained on Lasix which was decreased to 40 mg q.12 hours yesterday. Patient was initially admitted to the hospital with complaints of weakness and diarrhea. He states he is still having the diarrhea, but he has had good appetite good with no complaints of abdominal pain, chest pain or shortness of breath. On examination, blood pressure is 140/81, heart rate 78 per minute. He is afebrile. EXAMINATION OF THE HEART: S1 and S2. EXAMINATION OF THE LUNGS: Bilateral breath sounds are heard. Decreased breath sounds at the bases. ABDOMEN: Soft, nontender. Examination of the lower extremities shows edema 2+ bilaterally. There is edema noted in the upper extremities as well. 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 Labs show sodium 141, potassium 3.7, chloride 108, BUN 54, serum creatinine 1.8 mg/dL. ASSESSMENT: 1. Acute kidney injury, most likely acute tubular necrosis, currently improved. Renal function is back to baseline. 2. Chronic kidney disease stage IV, secondary to FSGS continue with the Prograf. 3. Status post Clostridium difficile colitis as outpatient, currently Clostridium difficile toxin is negative, however, diarrhea persists. 4. Paroxysmal atrial fibrillation, being followed by Cardiology, maintained on anticoagulation. 5. Elevated troponins. No evidence of acute myocardial infarction. 6. Hyperlipidemia. 7. History of psoriatic arthropathy. PLAN: Continue with the Lasix, encourage increase oral intake. Repeat labs in a.m. May continue with the RICK inhibitors for now.
[2016-08-21] MEDS: DIPHENOX-ATROP 2.5-0.025 MG 1 EACH TAB PO SCH ×4 (19:57→21:49)
[2016-08-21] MEDS: ATORVASTATIN 40 MG TAB PO SCH (21:42)
[2016-08-22 06:27] LABS: Calcium 7.6 mg/dL (8.4-10.2); Potassium 3.9 mmol/L (3.5-5.1)
[2016-08-22] MEDS: amLODIPine 2.5 MG TAB PO SCH (08:31)
[2016-08-22] MEDS: LISINOPRIL 10 MG TAB PO SCH (08:31)
[2016-08-22] MEDS: FAMOTIDINE 20 MG TAB PO SCH (08:31)
[2016-08-22] MEDS: CALCIUM CARBONATE 500 MG CHEWABLE PO SCH (08:31)
[2016-08-22] MEDS: ASPIRIN 81 MG CHEW PO SCH (08:31)
[2016-08-22] MEDS: FUROSEMIDE 10 MG/ML 4 ML VIAL IV SCH ×2 (08:31→21:14)
[2016-08-22] MEDS: predniSONE 10 MG TAB PO SCH (08:31)
[2016-08-22] MEDS: ALLOPURINOL 100 MG TAB PO SCH ×2 (08:32→21:14)
[2016-08-22] MEDS: GABAPENTIN 300 MG CAP PO SCH ×3 (08:32→21:14)
[2016-08-22] MEDS: POTASSIUM CHLORIDE ER 20 MEQ TAB.ER PO SCH ×2 (08:32→21:14)
[2016-08-22] MEDS: TAMSULOSIN 0.4 MG CAP.ER.24H PO SCH ×2 (08:32→21:14)
[2016-08-22] MEDS: APIXABAN 2.5 MG TABLET PO SCH ×2 (08:32→21:14)
[2016-08-22] MEDS: TACROLIMUS 1 MG CAP PO SCH ×2 (08:33→21:14)
[2016-08-22] MEDS: DIPHENOX-ATROP 2.5-0.025 MG 1 EACH TAB PO SCH ×4 (08:44→21:14)
--- NOTE | 2016-08-22 09:29 | XR ---
EXAMINATION TYPE: XR chest 2V DATE OF EXAM: 08/22/2016 6:35 AM COMPARISON: Prior chest x-ray 19 April 2016, 19 August 2016 HISTORY: Congestive heart failure TECHNIQUE: Frontal and lateral views of the chest are obtained. FINDINGS: There is improvement in lung volume. Patient is rotated. Postop change noted to the cervic al spine, there are overlying cardiac leads. Thoracic aorta may be ectatic. No evident pneumothorax. Patchy basilar density is present. Interstitium remains increased. Heart is enlarged. Suspect disloca tion of the left shoulder. IMPRESSION: There is some improvement in aeration, correlate for volume overload. There may be basil ar edema, atelectasis, correlate to exclude pneumonia. Ectatic thoracic aorta may be present, suspect left shoulder dislocation may be chronic.
--- NOTE | 2016-08-22 10:25 | PN ---
Patient is seen for follow-up for chronic kidney disease and acute kidney injury. 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 Patient was admitted to the hospital with ongoing diarrhea, increased weakness and fatigue prior to admission. He has been diagnosed with C. difficile colitis as outpatient and finished a course of Flagyl prior to admission. Post admission his Clostridium difficile toxin remains negative, however, he continues to have diarrhea on and off but it is significantly improved than on admission. Patient was found to be mildly volume overloaded and he is currently maintained on IV Lasix. His renal function has been slowly improving with creatinine now at baseline at about 1.6 mg/dL. On examination, blood pressure is 137/89, heart rate 95 per minute. He is afebrile. Examination of the heart S1 and S2. Examination of the lungs: Bilateral breath sounds are heard. Abdomen is soft, obese, nontender. Examination of lower extremities shows trace edema bilaterally. HIGH PRESSURE FIRER exam is grossly intact. Deformities are noted in the hands from rheumatoid arthritis. Labs show sodium 143, potassium 3.9, chloride 110, BUN 51, serum creatinine 1.6. ASSESSMENT: 1. Acute kidney injury, acute tubular necrosis, currently improved. 2. Clostridium difficile colitis as outpatient, currently Clostridium difficile toxin negative. Diarrhea is improving, status post course of Flagyl as outpatient and maintained on Lomotil now. 3. Chronic kidney disease, stage IV, secondary to FSGS, maintained on Prograf and tolerating RICK inhibitors fairly well. Continue with current dose of Zestril. 4. Atrial fibrillation, maintained on anticoagulation with Eliquis. 5. Hypertension, currently controlled. Continue current medications. 6. Mild volume overload maintained on IV Lasix, which we will continue for one more day and we can switch to p.o. Lasix tomorrow and patient can be discharged tomorrow. 7. Benign prostatic hypertrophy, maintained on Flomax. PLAN: Continue IV Lasix for one more day, switch to p.o. diuretics and patient can be discharged tomorrow.
[2016-08-22] MEDS: PROPRANOLOL LA 60 MG CAP.SA.24H PO SCH (11:50)
[2016-08-22] MEDS: LEFLUNOMIDE 20 MG TAB PO SCH (11:50)
--- NOTE | 2016-08-22 11:53 | PN ---
DATE OF SERVICE: 08/21/2016 INTERVAL HISTORY: This is a patient with multiple problems, admitted with acute diastolic congestive heart failure and acute severe diarrhea. C. difficile was negative. Patient until this afternoon had not had any more bowel movements, eating rather well. Feels much better. Review of systems done for cardiovascular, GI, pulmonary relevant findings as above. Current medications include IV Lasix. On examination, temperature 97.4, pulse ( ), respiration 18, blood pressure 130/79, pulse ox 96% on room air. GENERAL APPEARANCE: Lying in bed, flat, comfortable. EYES: Pupils equal. Conjunctivae normal. NECK: JVD not raised. Mass not palpable. RESPIRATORY: Effort normal. LUNGS: Breath sounds. CARDIOVASCULAR: First and second sounds normal. Some edema is present. ABDOMEN: Soft. Liver and spleen not palpable. PSYCHIATRY: Alert and oriented x3. Mood and affect normal. INVESTIGATIONS: Potassium 3.7. BUN 54, creatinine 1.80. ASSESSMENT: 1. Acute ( ) diarrhea, negative for C. difficile, well controlled now. 2. Chronic kidney disease, stage III. 3. Nephrosclerosis. 4. Nephrotic syndrome causing hypoalbuminemia. 5. Lower extremity edema, likely from hypoalbuminemia. 6. Troponin leak in the setting of renal failure. 7. Essential hypertension. 8. Primary osteoarthritis of multiple joints. 9. Psoriatic arthritis. 10. Acute congestive heart failure from diastolic function, ejection fraction preserved, doing much better. PLAN: Overall doing much better. Will change the Lomotil to p.r.n. Will also repeat a chest x-ray in the morning.
[2016-08-22] MEDS: ATORVASTATIN 40 MG TAB PO SCH (21:14)
[2016-08-22] MEDS ORDERED: DIPHENOX-ATROP 2.5-0.025 MG 1 EACH TAB PO PRN (21:34)
[2016-08-22] MEDS ORDERED: FUROSEMIDE 250 MG in SODIUM CHLORIDE 0.9% 225 ML IVP SCH (21:45)
[2016-08-23 06:10] LABS: Calcium 7.6 mg/dL (8.4-10.2)
[2016-08-23] MEDS: ALLOPURINOL 100 MG TAB PO SCH (08:23)
[2016-08-23] MEDS: GABAPENTIN 300 MG CAP PO SCH ×3 (08:23→16:07)
[2016-08-23] MEDS: ASPIRIN 81 MG CHEW PO SCH (08:24)
[2016-08-23] MEDS: amLODIPine 2.5 MG TAB PO SCH (08:24)
[2016-08-23] MEDS: APIXABAN 2.5 MG TABLET PO SCH (08:24)
[2016-08-23] MEDS: FAMOTIDINE 20 MG TAB PO SCH (08:25)
[2016-08-23] MEDS: CALCIUM CARBONATE 500 MG CHEWABLE PO SCH (08:25)
[2016-08-23] MEDS: LISINOPRIL 10 MG TAB PO SCH (08:27)
[2016-08-23] MEDS: POTASSIUM CHLORIDE ER 20 MEQ TAB.ER PO SCH (08:27)
[2016-08-23] MEDS: predniSONE 10 MG TAB PO SCH (08:27)
[2016-08-23] MEDS: TACROLIMUS 1 MG CAP PO SCH (08:28)
[2016-08-23] MEDS: TAMSULOSIN 0.4 MG CAP.ER.24H PO SCH (08:28)
--- NOTE | 2016-08-23 08:47 | P.PN ---
Subjective Patient is seen in follow-up for chronic kidney disease. Patient has chronic kidney disease stage IV secondary to FSGS with baseline creatinine near 2. His creatinine today is down to 1.5. He is maintained on Prograf. His appetite has been good. No vomiting or diarrhea. He does admit to swelling in his right upper extremity. He is nonoliguric. He was on Lasix drip which has now been transitioned over to oral Lasix. Vital signs are stable. General: The patient appeared well nourished and normally developed. HEENT: Head exam is unremarkable. Neck is without jugular venous distension. LUNGS: Lungs are clear to auscultation and percussion. Breath sounds decreased. HEART: Rate and Rhythm are regular. First and second heart sounds normal. No murmurs, rubs or gallops. ABDOMEN: Abdominal exam reveals normal bowel sounds. Non-tender and non- distended. No evidence of peritonitis. EXTREMITITES: 1+ edema. Objective - Vital Signs Vital signs: Vital Signs Temp 99.1 F 08/23/16 08:15 Pulse 96 08/23/16 08:15 Resp 22 08/23/16 08:15 BP 129/70 08/23/16 08:15 Pulse Ox 93 L 08/23/16 08:15 Intake & Output 08/22/16 08/23/16 08/23/16 18:59 06:59 18:59 Intake Total 760 Balance 760 Weight 106 kg Intake: Oral 760 Other: Voiding Method Urinal Urinal # Voids 1 1 - Labs CBC & Chem 7: 08/19/16 14:25 08/23/16 05:29 Labs: Abnormal Lab Results - Last 24 Hours (Table) 08/23/16 Range/Units 05:29 Chloride 109 H (98-107) mmol/L BUN 53 H (9-20) mg/dL Creatinine 1.50 H (0.66-1.25) mg/dL Calcium 7.6 L (8.4-10.2) mg/dL Assessment and Plan Plan: Assessment: #1. Chronic kidney disease stage IV secondary to FSGS. #2. Volume overload. Improving. #3. Right upper extremity swelling. Rule out DVT. #4. Recent C. diff. Culture this admission negative. Plan: Continue Lasix 80 mg twice daily orally. I advised him to follow a low-salt diet. Check right upper extremity ultrasound. Avoid nephrotoxic agents and hypotensive episodes. Maintain immunosuppression. Currently on Prograf.
--- NOTE | 2016-08-23 09:25 | PN ---
DATE OF SERVICE: 08/22/2016 PRESENTING COMPLAINT: Short of breath. INTERVAL HISTORY: The patient admitted with multiple problems, acute diastolic congestive heart failure, acute severe diarrhea which actually resolved, C. difficile was negative, and also has got renal failure. Patient is tolerating a diet. Edema still present. Review of systems done for constitutional, cardiovascular, GI, pulmonary; relevant findings as above. Current medications include IV Lasix q.12. On examination, temperature 97.8, pulse 85, respiration 18, blood pressure 144/87, pulse ox 96% on room air. GENERAL APPEARANCE: Lying in bed, flat, comfortable. EYES: Pupils equal. Conjunctivae normal. NECK: JVD unable to assess. Mass not palpable. RESPIRATORY: Effort normal. LUNGS: Decreased breath sounds. CARDIOVASCULAR: First and second sounds normal. Edema present. ABDOMEN: Soft, nontender. Liver and spleen not palpable. PSYCHIATRY: Alert and oriented x3. Mood and affect normal. INVESTIGATIONS: Potassium 3.9. BUN 51, creatinine 1.60. C. difficile negative. Chest x-ray still showed some volume overload. ASSESSMENT: 1. Acute antibiotic associated diarrhea, negative Clostridium difficile, now controlled. 2. Chronic kidney disease, stage III from nephrosclerosis and nephrotic syndrome. 3. Nephrotic syndrome causing hypoalbuminemia. 4. Lower extremity edema likely from hypoalbuminemia. 5. Troponin leak in a setting of renal failure. 6. Essential hypertension. 7. Primary osteoarthritis of multiple joints. 8. Psoriatic arthritis. 9. Acute congestive heart failure from diastolic dysfunction, ejection fraction preserved, still chest x-ray appears to be wet. PLAN: Will put the patient on Lasix drip just overnight to see if that helps ( ) fluid status any better.
--- NOTE | 2016-08-23 09:47 | XR ---
EXAMINATION TYPE: XR chest 2V DATE OF EXAM: 08/23/2016 9:32 AM COMPARISON: Prior chest x-ray 2016 HISTORY: Congestive heart failure TECHNIQUE: Frontal and lateral views of the chest are obtained. FINDINGS: Postop change noted in the cervical spine, cervicothoracic junction. Pleural-parenchymal c hanges show similar appearance. There may be ectatic aorta. Heart size may be accentuated by techniqu e, low lung volume. No evident pneumothorax or pleural effusion. 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
[2016-08-23] MEDS: LEFLUNOMIDE 20 MG TAB PO SCH (11:55)
[2016-08-23] MEDS: PROPRANOLOL LA 60 MG CAP.SA.24H PO SCH (11:55)
--- NOTE | 2016-08-23 14:18 | P.PN ---
Subjective Principal diagnosis: Diastolic congestive heart failure This is a 76-year-old gentleman who follows regularly with Dr. VC Case in the office. He presented to the hospital with symptoms of weakness and diarrhea, he was also found to be in mild congestive heart failure, diastolic in nature. History is significant for hypertension, hyperlipidemia, paroxysmal atrial fibrillation, on Savaysa at home, chronic kidney disease. He shouldn't is currently on by mouth Lasix. Overall doing much better today. He actually ambulated in the hallway with assistance today. continues to be concerned about swelling in bilateral arms. The swelling in his legs has improved significantly. Objective - Vital Signs Vital signs: Vital Signs Temp 99.1 F 08/23/16 08:15 Pulse 72 08/23/16 10:29 Resp 22 08/23/16 08:15 BP 129/70 08/23/16 08:15 Pulse Ox 95 08/23/16 10:29 Intake & Output 08/22/16 08/23/16 08/23/16 18:59 06:59 18:59 Intake Total 760 420 Balance 760 420 Weight 106 kg Intake: Oral 760 420 Other: Voiding Method Urinal Urinal # Voids 1 1 - Exam PHYSICAL EXAMINATION: HEENT: Head is atraumatic, normocephalic. Pupils equal, round. Neck is supple. There is no elevated jugular venous pressure. HEART EXAMINATION: S1 and S2 irregularly irregular, systolic murmur is heard. CHEST EXAMINATION: Lungs are clear with fine crackles to posterior bases. ABDOMEN: Soft, the skin, nontender. Bowel sounds are heard. No organomegaly noted. EXTREMITIES: 2+ peripheral pulses with trace evidence of peripheral edema and no calf tenderness noted. NEUROLOGIC patient is awake, alert and oriented -3. . - Labs CBC & Chem 7: 08/19/16 14:25 08/23/16 05:29 Labs: Abnormal Lab Results - Last 24 Hours (Table) 08/23/16 Range/Units 05:29 Chloride 109 H (98-107) mmol/L BUN 53 H (9-20) mg/dL Creatinine 1.50 H (0.66-1.25) mg/dL Calcium 7.6 L (8.4-10.2) mg/dL Assessment and Plan (1) Diastolic CHF, acute on chronic Status: Acute (2) Renal failure (ARF), acute on chronic Status: Acute (3) Paroxysmal a-fib Status: Acute (4) HTN (hypertension) Status: Acute (5) Hyperlipemia Status: Acute (6) Elevated troponin Status: Acute (7) C. difficile diarrhea Status: Acute (8) Left leg cellulitis Status: Acute Plan: From cardiology's perspective, we will recommend to continue current dose of PO Lasix. We will continue his current medications. Once the patient is discharged home from the hospital, a follow-up appointment will be made with Dr. Tellez in the office post discharge. DNP note has been reviewed, I agree with a documented findings and plan of care. Patient was seen and examined.
[2016-08-23] MEDS ORDERED: FUROSEMIDE 80 MG TAB PO SCH (16:00)
[2016-08-23 16:11] VITALS: BP 138/88; PULSE 73; RESP 16; TEMP 97.1
--- NOTE | 2016-08-24 07:28 | US ---
EXAMINATION TYPE: US venous doppler duplex UE RT DATE OF EXAM: 08/23/2016 2:39 PM COMPARISON: No previous CLINICAL HISTORY: right arm swelling. Right arm swelling SIDE PERFORMED: Right Right Arm: Appears negative for DVT IMPRESSION: Right upper extremity appears negative for deep venous thrombosis.
--- NOTE | 2016-08-24 10:17 | DS ---
DATE OF ADMISSION: 08/19/2016 DATE OF DISCHARGE: 08/23/2016 FINAL DIAGNOSES: 1. Acute antibiotic-associated diarrhea, negative for Clostridium difficile, present on admission. 2. Chronic kidney disease stage III from nephrosclerosis and nephrotic syndrome. 3. Nephrotic syndrome causing hypoalbuminemia. 4. Lower extremity edema, likely from hypoalbuminemia and congestive heart failure. 5. Troponin leak in the setting of renal failure and congestive heart failure. 6. Essential hypertension. 7. Primary osteoarthritis of multiple joints, bilateral. 8. Psoriatic arthritis. 9. Acute congestive heart failure from diastolic dysfunction, ejection fraction preserved from hypertensive heart disease, present on admission. 10. Chronic kidney disease stage III to IV secondary to focal segmental glomerular sclerosis. Also had acute renal failure, likely prerenal present on admission with creatinine coming down. CONSULTATIONS: 1. Dr. Hutchins from Nephrology. 2. Dr. Samm Sanchez from Cardiology. HOSPITAL COURSE: This patient presented with severe diarrhea, stool came back negative for C. diff and responded well to empiric treatment including Lomotil. Patient is tolerating his diet. Patient also was short of breath, found to be in CHF, responded well to IV Lasix and diuresed well. Edema did come down nicely. Patient has chronic kidney disease also an acute element. Creatinine was 2.201 on admission, did come down to 1.5 by discharge. On day of discharge, care was discussed in detail with the patient and . Questions were answered. DC planning more than 35 minutes. Additionally patient's BUN was 53, creatinine 1.50 at the time of discharge. Patient was also feeling much better. DISCHARGE MEDICATIONS: 1. Allopurinol 100 mg p.o. b.i.d. 2. Drisdol 50,000 units on Tuesday. 3. Lasix 80 mg p.o. b.i.d. 4. Arava 20 mg before lunch. 5. Zantac 150 mg p.o. b.i.d. 6. Flomax 0.4 mg p.o. b.i.d. 7. Inderal LA 60 mg with lunch. 8. Vasotec 20 mg a day. 9. Prograf 2 mg p.o. daily. 10. Calcium 600 mg daily. 11. Prednisone 10 mg a day. 12. Lipitor 40 mg q.h.s. 13. Fish oil 1000 mg daily. 14. Iron 325 p.o. daily. 15. Prograf 1 mg p.o. q.h.s. 16. Norvasc 2.5 p.o. daily. 17. Eliquis 2.5 mg p.o. b.i.d. and placement for Savaysa. Patient is getting samples of this. 18. Aspirin 81 mg a day. 19. Neurontin 300 mg p.o. t.i.d., dose was cut back. 20. Potassium 20 mEq p.o. b.i.d. Follow up with Dr. Hall in 3 days, follow up with Dr. Bradford in one week. BMP in one week.
== END 2016-08-23 18:58 | disposition home health service (06) | DRG 393 ==
LOC: EC 13:03 → 6SEL 17:42
PROVIDERS: ADMIT Hospitalist; ATTEND Hospitalist
DX: K52.1 Toxic gastroenteritis and colitis (principal); I50.33 Acute on chronic diastolic (congestive) heart failure; N17.0 Acute kidney failure with tubular necrosis; N04.1 Nephrotic syndrome with focal and segmental glomerular lesions; L03.116 Cellulitis of left lower limb; N18.4 Chronic kidney disease, stage 4 (severe); I48.0 Paroxysmal atrial fibrillation; E88.09 Other disorders of plasma-protein metabolism, not elsewhere classified; G62.9 Polyneuropathy, unspecified; L40.50 Arthropathic psoriasis, unspecified; I13.0 Hypertensive heart and chronic kidney disease with heart failure and stage 1 through stage 4 chronic kidney disease, or unspecified chronic kidney disease; E86.0 Dehydration; M06.9 Rheumatoid arthritis, unspecified; R31.9 Hematuria, unspecified; E78.5 Hyperlipidemia, unspecified; M19.91 Primary osteoarthritis, unspecified site; E87.6 Hypokalemia; H91.90 Unspecified hearing loss, unspecified ear; M10.9 Gout, unspecified; G89.29 Other chronic pain; M47.9 Spondylosis, unspecified; G43.909 Migraine, unspecified, not intractable, without status migrainosus; N40.0 Benign prostatic hyperplasia without lower urinary tract symptoms; Z98.1 Arthrodesis status; Z88.1 Allergy status to other antibiotic agents; Z88.8 Allergy status to other drugs, medicaments and biological substances; Z85.828 Personal history of other malignant neoplasm of skin; Z79.52 Long term (current) use of systemic steroids; Z79.01 Long term (current) use of anticoagulants; Z79.899 Other long term (current) drug therapy; W18.11XA Fall from or off toilet without subsequent striking against object, initial encounter
CPT/HCPCS: 36415; 70450; 71010; 71020; 72170; 80048; 80053; 80306; 81001; 82550; 82553; 83735; 83880; 84100; 84484; 85025; 85610; 85730; 87324; 87328; 87329; 89055; 93005; 94760; 96360; 96361; 99285

== ENCOUNTER 2016-08-25 14:02 | Inpatient (IN) | payer MEDICARE ==
[2016-08-25] MEDS ORDERED: SODIUM CHLORIDE 0.9% 1,000 ML IV STA (14:33)
[2016-08-25] MEDS ORDERED: ONDANSETRON 4 MG/2 ML VIAL IVP STA (14:33)
--- NOTE | 2016-08-25 14:44 | ED ---
General Adult HPI - General Chief complaint: Nausea/Vomiting/Diarrhea Stated complaint: C-DIFF Time Seen by Provider: 08/25/16 14:19 Source: patient, family, EMS, RN notes reviewed, old records reviewed Mode of arrival: EMS - History of Present Illness Initial comments: 76-year-old male presenting for persistent diarrhea. Patient was recently discharged the hospital for similar symptoms. states that he was evaluated in the hospital and ultimately found to be C. diff negative and discharged home. She states he has had persistent watery bowel movements every 2 hours for the past several days since discharge. She states that today he has been having nonstop diarrhea. He has had decreased appetite as well. She is worried he is becoming dehydrated. The patient denies any chest pain or shortness of breath. He does state he feels fatigued. Also had some mild abdominal pain. - Related Data Home Medications Medication Instructions Recorded Confirmed Allopurinol [Zyloprim] 100 mg PO BID 01/16/14 08/25/16 Ergocalciferol [Vitamin D2 50,000 units PO DEAL 01/16/14 08/25/16 (DRISDOL)] Furosemide 80 mg PO BID 01/16/14 08/25/16 Leflunomide [Arava] 20 mg PO AC-LUNCH 01/16/14 08/25/16 Phosphorus #1 [Phospha 250 Neutral 250 mg PO BID 01/16/14 08/25/16 Tablet] Ranitidine HCl [Zantac] 150 mg PO BID 01/16/14 08/25/16 Tamsulosin HCl [Flomax] 0.4 mg PO BID 01/16/14 08/25/16 Propranolol LA [Inderal LA] 60 mg PO AC-LUNCH 12/17/14 08/25/16 Enalapril [Vasotec] 20 mg PO DAILY 03/27/15 08/25/16 Tacrolimus [Prograf] 2 mg PO DAILY 03/27/15 08/25/16 Calcium Carbonate [Calcium] 600 mg PO DAILY 03/25/16 08/25/16 predniSONE 10 mg PO DAILY 03/25/16 08/25/16 Atorvastatin [Lipitor] 40 mg PO HS 04/18/16 08/25/16 Cool-3 Fatty Acids/Fish Oil [Fish 1,000 mg PO DAILY 04/18/16 08/25/16 Oil 1,000 mg Softgel] Ferrous Sulfate [Feosol] 325 mg PO DAILY 08/19/16 08/25/16 Tacrolimus [Prograf] 1 mg PO HS 08/19/16 08/25/16 amLODIPine [Norvasc] 2.5 mg PO DAILY 08/19/16 08/25/16 Previous Rx's Medication Instructions Recorded Apixaban [Eliquis] 2.5 mg PO BID #60 tablet 08/23/16 Aspirin 81 mg PO DAILY chew 08/23/16 Gabapentin [Neurontin] 300 mg PO TID #0 08/23/16 Potassium Chloride ER [K-Dur 20] 20 meq PO BID #60 tab.er.prt 08/23/16 Allergies Allergy/AdvReac Type Severity Reaction Status Date / Time sumatriptan [From Imitrex] Allergy Swelling Verified 08/25/16 14:12 sumatriptan succinate Allergy Swelling Verified 08/25/16 14:12 [From Imitrex] cephalexin [From Keflex] AdvReac Diarrhea Verified 08/25/16 14:12 Review of Systems ROS Statement: Those systems with pertinent positive or pertinent negative responses have been documented in the HPI. ROS Other: All systems not noted in ROS Statement are negative. Past Medical History Past Medical History: Cancer, Hearing Disorder / Deafness, Hyperlipidemia, Hypertension, Musculoskeletal Disorder, Renal Disease Additional Past Medical History / Comment(s): HX SKIN CA. psoriatic arthritis. nephrotic syndrome. chronic back pain. DENIES GOUT. PAST HX OF MIGRAINES. HX iron infusion. patient states he is pre-diabetic. EDEMA PETROS LOWER LEGS, ANKLES.petros torn rotator cuffs(had a previous sx on rt side but injured it again) History of Any Multi-Drug Resistant Organisms: None Reported Past Surgical History: Back Surgery, Hernia Repair, Orthopedic Surgery Additional Past Surgical History / Comment(s): L4-5 LUMBAR FUSION-(total of 4 back surguries)NECK FUSION. RT ROTATOR CUFF," kidney bx-neg". Surgical scar from skin cancer/surgery on right side of head. MULT PAIN PROC, LAST 05/12/16. Past Anesthesia/Blood Transfusion Reactions: No Reported Reaction Past Psychological History: No Psychological Hx Reported Additional Psychological History / Comment(s): lives in the family home with his and 2 pet dogs., no steps into home. 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 No experience. No international travel. No animal exposures. No ill contacts. has a glucometer and bp machine Smoking Status: Never smoker Past Alcohol Use History: None Reported Past Drug Use History: None Reported - Past Family History Father Additional Family Medical History / Comment(s): as a results of burn injuries in work related accident Mother Additional Family Medical History / Comment(s): at age 84 from heart problems Sister(s) Family Medical History: Cancer Additional Family Medical History / Comment(s): mother-- HTN. brother-- Diabetes, kidney problems General Exam - General Exam Comments Initial Comments: General: Awake and Alert. No acute distress. Does not appear acutely ill. Obese. Eyes: ADAM, EOM intact. No nystagmus. No scleral icterus. HENT: Atraumatic, normocephalic. Mucous membranes moist. Trachea midline. Neck: The neck is supple, there is no tenderness or JVD. Cardiovascular: Regular rate and rhythm. No murmur, rub, or gallop is appreciated. Distal pulses intact. 3+ pitting edema bilateral lower and upper extremities. Respiratory: Lungs are clear to auscultation bilaterally. No wheezes, rales, rhonchi. No respiratory distress. Gastrointestinal: Soft, mild diffuse tenderness. No rebound or guarding. Non- distended. No masses or organomegaly noted. No CVA tenderness. Musculoskeletal: No tenderness. Normal ROM. No gross deformity. No strength deficits. Neurological: A&Ox2. CN II-XII grossly intact, There are no obvious motor or sensory deficits. Coordination appears grossly intact. Speech is normal. Skin: Skin is warm and dry and no rashes or lesions are noted. Psychiatric: Cooperative, appropriate mood & affect, normal judgment. Course Vital Signs 08/25/16 08/25/16 08/25/16 14:12 15:11 17:00 Temperature 98.7 F 97.8 F 98.3 F Pulse Rate 63 70 109 H Respiratory 22 20 16 Rate Blood Pressure 108/66 111/67 112/67 O2 Sat by Pulse 95 Oximetry EKG Findings - EKG Comments: EKG Findings:: 14:55. Sinus rhythm. Frequent PVCs. Rate 105. Right bundle branch block. Nonspecific T wave abnormality. No STEMI. Abnormal EKG. Similar prior EKG for 1317 Medical Decision Making - Medical Decision Making 76-year-old male presenting for persistent diarrhea and abdominal pain. Review of recent records with persistent diarrhea which was thought to be secondary to recent antibiotic use. He was C. diff negative. Repeat workup including CT imaging ordered today. IV fluids started. CT abdomen and pelvis showing evidence of colitis. As a stable CBC. BMP with acute on chronic renal failure. Patient started on Rocephin/Flagyl for colitis. Concern for infectious diarrhea given worsening of symptoms and recent ABx use. C. diff testing reordered. IV fluids continue. Plan for admission for further management. Patient reevaluated, remains stable. and patient updated on plan for admission. They're agreeable to this. Spoke with Dr. Bailey, agrees with plan for admission. Requests consult to GI. - Lab Data Result diagrams: 08/25/16 14:35 08/25/16 14:35 Lab Results 08/25/16 08/25/16 Range/Units 14:35 14:35 WBC 10.0 (3.8-10.6) k/uL RBC 3.29 L (4.30-5.90) m/uL Hgb 10.2 L (13.0-17.5) gm/dL Hct 31.0 L (39.0-53.0) % MCV 94.0 (80.0-100.0) fL MCH 30.8 (25.0-35.0) pg MCHC 32.8 (31.0-37.0) g/dL RDW 15.7 H (11.5-15.5) % Plt Count 180 (150-450) k/uL Neutrophils % 85 % Lymphocytes % 4 % Monocytes % 7 % Eosinophils % 2 % Basophils % 0 % Neutrophils # 8.5 H (1.3-7.7) k/uL Lymphocytes # 0.4 L (1.0-4.8) k/uL Monocytes # 0.7 (0-1.0) k/uL Eosinophils # 0.2 (0-0.7) k/uL Basophils # 0.0 (0-0.2) k/uL Sodium 139 (137-145) mmol/L Potassium 4.3 (3.5-5.1) mmol/L Chloride 106 (98-107) mmol/L Carbon Dioxide 28 (22-30) mmol/L Anion Gap 5 mmol/L BUN 52 H (9-20) mg/dL Creatinine 1.74 H (0.66-1.25) mg/dL Est GFR (MDRD) Af Amer 47 (>60 ml/min/1.73 sqM) Est GFR (MDRD) Non-Af 38 (>60 ml/min/1.73 sqM) Glucose 109 H (74-99) mg/dL Calcium 7.7 L (8.4-10.2) mg/dL Magnesium 1.7 (1.6-2.3) mg/dL Total Bilirubin 0.7 (0.2-1.3) mg/dL AST 42 (17-59) U/L ALT 40 (21-72) U/L Alkaline Phosphatase 67 (38-126) U/L Total Protein 4.8 L (6.3-8.2) g/dL Albumin 2.2 L (3.5-5.0) g/dL Lipase 50 (23-300) U/L - EKG Data -: EKG Interpreted by Oh EKG shows normal: sinus rhythm Rate: tachycardia When compared to previous EKG there are: no significant change Interpretation: no acute changes - Radiology Data Radiology results: report reviewed, image reviewed Disposition Clinical Impression: Colitis, Diarrhea, Abdominal pain Disposition: ADMITTED IP TO THIS [facility] Condition: Stable Decision to Admit Reason: Admit from EC
[2016-08-25 15:02] LABS: Basophils % (A) 0 %; CH 30.5; CHCM 32.6; Eosinophils # (A) 0.2 k/uL (0-0.7); Eosinophils % (A) 2 %; HDW 2.43; HGB 10.2 gm/dL (13.0-17.5); Luc # (Auto) 0.19; Luc % (Auto) 2; Lymphocytes # (A) 0.4 k/uL (1.0-4.8); Lymphocytes % (A) 4 %; MCH 30.8 pg (25.0-35.0); MCHC 32.8 g/dL (31.0-37.0); Mean Platelet Volume 7.8; Monocytes # (A) 0.7 k/uL (0-1.0); Monocytes % (A) 7 %; Neutrophils # (A) 8.5 k/uL (1.3-7.7); Neutrophils % (A) 85 %; RBC 3.29 m/uL (4.30-5.90); RDW 15.7 % (11.5-15.5); WBC (Perox) 10.39
[2016-08-25 15:09] LABS: Calcium 7.7 mg/dL (8.4-10.2); Magnesium 1.7 mg/dL (1.6-2.3); Potassium 4.3 mmol/L (3.5-5.1); Total Bilirubin 0.7 mg/dL (0.2-1.3); Total Protein 4.8 g/dL (6.3-8.2)
--- NOTE | 2016-08-25 16:12 | CT ---
EXAMINATION TYPE: CT abdomen pelvis wo con DATE OF EXAM: 08/25/2016 3:43 PM HISTORY: Diarrhea and abdominal pain. CT DLP: 1503.70 mGycm. Automated Exposure Control for Dose Reduction was Utilized. TECHNIQUE: CT scan of the abdomen and pelvis is performed without oral or IV contrast. COMPARISON: NONE FINDINGS: Within the limitations of a non-contrast study, the following observations are made. Exam is suboptimal as there is artifact from overlying upper extremities. LUNG BASES: Cardiomegaly with tiny bilateral pleural effusions and bibasilar atelectasis and/or Limit ed consolidation is present. There is bilateral gynecomastia noted. LIVER/GB: No significant abnormality is appreciated. PANCREAS: No significant abnormality is seen. SPLEEN: No significant abnormality is seen. ADRENALS: No significant abnormality is seen. KIDNEYS: Some cortical thinning in both kidneys is seen presumed product of chronic medical renal dis ease. There are 2-4 nonobstructing small calculi suspected in the right kidney. There is 6 mm proxima l right ureter calculus on axial image 51 confirmed on coronal image 51 without significant right-edis ed hydronephrosis. No left-sided renal calculi or hydronephrosis is seen. BOWEL: Evaluation bowel is suboptimal secondary to lack of enteric contrast. There is no suspicious s mall or large bowel dilatation. There is mild to moderate wall thickening in the mid to distal left c olon with moderate to severe wall thickening extending into the proximal to mid sigmoid colon, some d iverticula are present at this level. Mild to moderate wall thickening through the distal sigmoid col on and rectum is present. No significant surrounding inflammatory changes seen. GENITAL ORGANS: Prostate gland is enlarged in size suspicious for BPH. LYMPH NODES: No greater than 1cm abdominal or pelvic lymph nodes are appreciated. OSSEOUS STRUCTURES: There is moderate to severe multilevel spurring throughout the thoracolumbar spin e. There is multilevel vacuum disc phenomenon. There is posterior fusion hardware L4-L5 level bilater ally. There is artificial disc L4-L5 level. There is multilevel spinal canal effacement with most sig nificant stenosis seen L2-L3 level on axial image 47 as there is facet arthropathy and disc herniatio n present. OTHER: There is small to moderate-sized fat-containing left inguinal hernia. IMPRESSION: 1. Probable distal colitis, consider infectious or inflammatory etiologies. Clinical correlation advi sed. 2. There is 6 mm proximal right ureter calculus not causing significant hydronephrosis. Additional sm aller nonobstructing right-sided renal calculi are present. 3. Multilevel advanced degenerative change in lumbar spine with prominent spinal canal stenosis L2-L3 level noted.
[2016-08-25] MEDS ORDERED: ACETAMINOPHEN TAB 325 MG TAB PO PRN (17:04)
[2016-08-25] MEDS ORDERED: ONDANSETRON 4 MG/2 ML VIAL IVP PRN (17:04)
[2016-08-25] MEDS ORDERED: NALOXONE 0.4 MG/ML 1 ML VIAL IV PRN (17:04)
[2016-08-25] MEDS ORDERED: MORPHINE SULFATE 4 MG/ML SYRINGE IV PRN (17:04)
[2016-08-25] MEDS: metroNIDAZOLE-NS PMX 500 MG in SALINE 1 100ML.BAG IVPB SCH (19:48)
[2016-08-25] MEDS ORDERED: HEPARIN SODIUM,PORCINE 5,000 UNIT/ML 1 ML VIAL SQ SCH (21:00)
[2016-08-26] MEDS: FUROSEMIDE 80 MG TAB PO SCH ×2 (00:14→08:21)
[2016-08-26] MEDS: APIXABAN 2.5 MG TABLET PO SCH ×3 (00:14→21:50)
[2016-08-26] MEDS: ATORVASTATIN 40 MG TAB PO SCH ×2 (00:14→21:50)
[2016-08-26] MEDS: GABAPENTIN 300 MG CAP PO SCH ×4 (00:14→21:51)
[2016-08-26] MEDS: ALLOPURINOL 100 MG TAB PO SCH ×3 (00:14→21:50)
[2016-08-26] MEDS: metroNIDAZOLE-NS PMX 500 MG in SALINE 1 100ML.BAG IVPB SCH ×4 (00:14→23:41)
[2016-08-26] MEDS: LACTATED RINGERS 1,000 ML IV SCH ×4 (00:22→23:42)
[2016-08-26 07:32] LABS: Glucose,Whole Blood 77 mg/dL (75-99)
[2016-08-26] MEDS: LISINOPRIL 20 MG TAB PO SCH (08:21)
[2016-08-26] MEDS: CALCIUM CARBONATE 500 MG CHEWABLE PO SCH (08:22)
[2016-08-26] MEDS: FERROUS SULFATE 325 MG TAB PO SCH (08:22)
[2016-08-26] MEDS: ASPIRIN 81 MG CHEW PO SCH (08:22)
[2016-08-26] MEDS ORDERED: NON-FORMULARY DRUG (Omega-3 Fatty Acids/Fish Oil [Fish Oil 1,000 Mg Softgel] 1,000 MG) PO SCH (09:00)
[2016-08-26 09:22] LABS: Calcium 7.1 mg/dL (8.4-10.2); Magnesium 1.6 mg/dL (1.6-2.3); Phosphorous 4.4 mg/dL (2.5-4.5)
[2016-08-26 09:29] LABS: Basophils % (A) 0 %; CH 30.7; CHCM 31.9; Eosinophils # (A) 0.2 k/uL (0-0.7); Eosinophils % (A) 3 %; HCT 27.1 % (39.0-53.0); HDW 2.47; HGB 8.8 gm/dL (13.0-17.5); Luc # (Auto) 0.21; Luc % (Auto) 3; Lymphocytes # (A) 0.5 k/uL (1.0-4.8); Lymphocytes % (A) 6 %; MCH 31.4 pg (25.0-35.0); MCHC 32.5 g/dL (31.0-37.0); MCV 96.7 fL (80.0-100.0); Mean Platelet Volume 7.6; Monocytes # (A) 0.4 k/uL (0-1.0); Monocytes % (A) 5 %; Neutrophils # (A) 6.9 k/uL (1.3-7.7); Neutrophils % (A) 83 %; RDW 15.8 % (11.5-15.5); WBC 8.2 k/uL (3.8-10.6); WBC (Perox) 8.82
[2016-08-26] MEDS ORDERED: LOPERAMIDE 2 MG CAP PO STA (10:58)
[2016-08-26] MEDS ORDERED: FAMOTIDINE 20 MG TAB PO SCH (11:00)
--- NOTE | 2016-08-26 11:08 | P.CONS ---
History of Present Illness - Reason for Consult Consult date: 08/26/16 Diarrhea Requesting physician: Luther Bailey - History of Present Illness 76-year-old male admitted with acute nonbloody painless diarrhea. He was recently hospitalized a week ago with diarrhea. C. diff 2 negative. Ova parasite stool culture negative. No history of diarrhea. Patient said he was receiving antibiotics for leg cellulitis prior to his last admission. Denies abdominal pain. Denies hematemesis hematochezia or melena. CT scan abdomen and pelvis reported probable distal colitis possible infectious possible inflammatory. Patient has had multiple colonoscopies in the past to his memory last one maybe 3 years ago. GI office was called to inquire about procedure and no records were found. Colonoscopy could've been performed by another service. Patient states diarrhea is persistent throughout the days and has wakes him up at night. Sometimes incontinent. He has not tried antidiarrheals. White count 8.2. Hemoglobin 8.8. BUN 53. Creatinine 1.8. Review of Systems Constitutional: Denies fever, chills, sweats, weight gain, or loss. HEENT: Negative for, blurred vision or loss, earaches, drainage, tinnitus, oral mucosal lesions, dysphagia, or odynophagia. History of migraines. Cardiac: Hyperlipidemia. Negative for chest pain, arrhythmias, or palpitation. Respiratory: Negative for shortness of breath, hemoptysis, cough, or sputum production. Gastrointestinal: See HPI for pertinent findings. Genitourinary: Negative for hematuria, urgency, frequency, polyuria, dysuria, or penile discharge. Musculoskeletal: Psoriatic arthritis. Chronic back pain. Negative for muscle aches, swelling, arthritis, and arthralgias. Neurologic: Negative for stroke or TIA. Nephrology: History of nephrotic syndrome. Endocrine: Negative for thyroid problems. Skin: Skin carcinoma. Negative for rash or itching. Psychiatric: Negative history for depression and anxiety All systems: negative (See HPI) Past Medical History Past Medical History: Cancer, Hearing Disorder / Deafness, Hyperlipidemia, Hypertension, Musculoskeletal Disorder, Renal Disease Additional Past Medical History / Comment(s): HX SKIN CA. psoriatic arthritis. nephrotic syndrome. chronic back pain. DENIES GOUT. PAST HX OF MIGRAINES. HX iron infusion. patient states he is pre-diabetic. EDEMA PETROS LOWER LEGS, ANKLES.petrso torn rotator cuffs(had a previous sx on rt side but injured it again) History of Any Multi-Drug Resistant Organisms: None Reported Past Surgical History: Back Surgery, Hernia Repair, Orthopedic Surgery Additional Past Surgical History / Comment(s): L4-5 LUMBAR FUSION-(total of 4 back surguries)NECK FUSION. RT ROTATOR CUFF," kidney bx-neg". Surgical scar from skin cancer/surgery on right side of head. MULT PAIN PROC, LAST 05/12/16. Past Anesthesia/Blood Transfusion Reactions: No Reported Reaction Past Psychological History: No Psychological Hx Reported Additional Psychological History / Comment(s): lives in the family home with his and 2 pet dogs., no steps into home. 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 No experience. No international travel. No animal exposures. No ill contacts. has a glucometer and bp machine Smoking Status: Never smoker Past Alcohol Use History: None Reported Past Drug Use History: None Reported - Past Family History Father Additional Family Medical History / Comment(s): as a results of burn injuries in work related accident Mother Additional Family Medical History / Comment(s): at age 84 from heart problems Sister(s) Family Medical History: Cancer Additional Family Medical History / Comment(s): mother-- HTN. brother-- Diabetes, kidney problems Medications and Allergies Home Medications Medication Instructions Recorded Confirmed Type Allopurinol [Zyloprim] 100 mg PO BID 01/16/14 08/25/16 History Ergocalciferol [Vitamin D2 50,000 units PO DEAL 01/16/14 08/25/16 History (DRISDOL)] Furosemide 80 mg PO BID 01/16/14 08/25/16 History Leflunomide [Arava] 20 mg PO AC-LUNCH 01/16/14 08/25/16 History Phosphorus #1 [Phospha 250 Neutral 250 mg PO BID 01/16/14 08/25/16 History Tablet] Ranitidine HCl [Zantac] 150 mg PO BID 01/16/14 08/25/16 History Tamsulosin HCl [Flomax] 0.4 mg PO BID 01/16/14 08/25/16 History Propranolol LA [Inderal LA] 60 mg PO AC-LUNCH 12/17/14 08/25/16 History Enalapril [Vasotec] 20 mg PO DAILY 03/27/15 08/25/16 History Tacrolimus [Prograf] 2 mg PO DAILY 03/27/15 08/25/16 History Calcium Carbonate [Calcium] 600 mg PO DAILY 03/25/16 08/25/16 History predniSONE 10 mg PO DAILY 03/25/16 08/25/16 History Atorvastatin [Lipitor] 40 mg PO HS 04/18/16 08/25/16 History [place]-3 Fatty Acids/Fish Oil [Fish 1,000 mg PO DAILY 04/18/16 08/25/16 History Oil 1,000 mg Softgel] Ferrous Sulfate [Feosol] 325 mg PO DAILY 08/19/16 08/25/16 History Tacrolimus [Prograf] 1 mg PO HS 08/19/16 08/25/16 History amLODIPine [Norvasc] 2.5 mg PO DAILY 08/19/16 08/25/16 History Allergies Allergy/AdvReac Type Severity Reaction Status Date / Time sumatriptan [From Imitrex] Allergy Swelling Verified 08/25/16 14:12 sumatriptan succinate Allergy Swelling Verified 08/25/16 14:12 [From Imitrex] cephalexin [From Keflex] AdvReac Diarrhea Verified 08/25/16 14:12 Physical Exam Vitals: Vital Signs Temp Pulse Pulse Resp BP BP Pulse Ox 08/26/16 07:00 99.4 F 99 16 126/62 97 08/25/16 23:00 97.9 F 103 H 16 100/63 96 08/25/16 19:47 94 L 08/25/16 19:46 99.3 F 82 20 102/68 87 L Intake and Output 08/25/16 08/26/16 08/26/16 22:59 06:59 14:59 Other: Voiding Method Diaper # Voids 1 2 # Bowel Movements 1 General appearance: The patient is alert, oriented, in no acute distress. HET: Head is normocephalic and atraumatic. Pupils are equal and reactive. Oropharynx is clear without lesions. Neck: Supple without lymphadenopathy. Trachea midline. Heart: S1 S2. Regular rate and rhythm. Lungs: No crackles or wheezes are heard. Abdomen: Soft, nontender, nondistended with bowel sounds. No peritoneal signs. No palpable organomegaly or masses. Extremities: Normal skin color and turgor. No cyanosis, rash, ulceration, clubbing, or edema. Radial and pedal pulses are 2/4 bilaterally. Neurological: No focal deficits. Strength and sensation are grossly intact. Rectal: Incontinent of large green stool. Unable to complete exam. Results CBC & Chem 7: 08/26/16 08:19 08/26/16 08:19 Labs: Abnormal Lab Results - Last 24 Hours (Table) 08/26/16 08/26/16 Range/Units 08:19 08:19 RBC 2.80 L (4.30-5.90) m/uL Hgb 8.8 L (13.0-17.5) gm/dL Hct 27.1 L (39.0-53.0) % RDW 15.8 H (11.5-15.5) % Lymphocytes # 0.5 L (1.0-4.8) k/uL BUN 53 H (9-20) mg/dL Creatinine 1.86 H (0.66-1.25) mg/dL Glucose 73 L (74-99) mg/dL Calcium 7.1 L (8.4-10.2) mg/dL CT scan - abdomen: report reviewed (Reviewed by Dr. Jeff) CT scan - pelvis: report reviewed (Reviewed by Dr. Jeff) Assessment and Plan (1) Diarrhea Narrative/Plan: Possible self limiting infectious possible inflammatory colitis possible microscopic colitis. Status: Acute Plan: 1. colonoscopy was advised however patient is declining at this time. Lomotil 4 mg tablet now followed by 2 mg 4 times a day. If no relief with antidiarrheals would recommend proceeding with colonoscopy on this admission. Patient will reconsider his options and discuss in the morning. Continue supportive measures. Diet as tolerated. Repeat clostridium difficile toxin has been requested. Patient is receiving IV antibiotics Flagyl and Rocephin. Thank you for this kind referral and the opportunity to participate in the care of your patient. This consultation was discussed with Dr. Jeff. The impression and plan of care have been directed as dictated.
[2016-08-26] MEDS: TACROLIMUS 1 MG CAP PO SCH ×2 (11:26→21:50)
[2016-08-26] MEDS: POTASSIUM CHLORIDE ER 20 MEQ TAB.ER PO SCH ×2 (11:26→21:50)
[2016-08-26] MEDS: TAMSULOSIN 0.4 MG CAP.ER.24H PO SCH ×2 (11:27→21:50)
[2016-08-26] MEDS: PROPRANOLOL LA 60 MG CAP.SA.24H PO SCH (11:27)
[2016-08-26] MEDS: POTAS-SOD-PHOS 278-164-250 MG 1 EACH PACKET PO SCH ×2 (11:27→21:50)
[2016-08-26] MEDS: predniSONE 10 MG TAB PO SCH (11:27)
[2016-08-26] MEDS: amLODIPine 2.5 MG TAB PO SCH (11:27)
[2016-08-26 11:45] LABS: Glucose,Whole Blood 96 mg/dL (75-99)
[2016-08-26] MEDS: LOPERAMIDE 2 MG CAP PO SCH ×3 (13:07→21:55)
[2016-08-26] MEDS: LEFLUNOMIDE 20 MG TAB PO SCH (13:08)
--- NOTE | 2016-08-26 13:12 | HP ---
DATE OF ADMISSION: 08/25/2016 PRESENTING COMPLAINT: Severe diarrhea. HISTORY OF PRESENTING COMPLAINT: This is a very pleasant 76-year-old patient who was just discharged from the hospital 3 days ago. The patient's chronic stable medical conditions include hypertension, osteoarthritis, chronic kidney disease, nephrotic syndrome, underlying focal FSGS. Patient prior to last admission had to switch to course of antibiotics for cellulitis, having multiple stools on that admission was C. difficile was negative, responded well to Lomotil. Patient also had CHF exacerbation, responded well to Lasix. When patient got discharged, patient was tolerating his diet well. Breathing had improved. Patient also got swelling in the upper extremities from third spacing from hypoalbuminemia. Patient after going home the following day again started off with multiple loose stools, no blood, no abdominal pain. Appetite had gone down. is at the bedside. At baseline, patient is using cane, walker, sometimes a wheelchair. REVIEW OF SYSTEMS: CONSTITUTIONAL: Weak and tired. HEENT: Decreased hearing. RESPIRATORY: No changes, short of breath from baseline. CARDIOVASCULAR: None. GASTROINTESTINAL: As above. GENITOURINARY: None. MUSCULOSKELETAL: Pain in the joints. DERMATOLOGICAL: Dry skin. HEMATOLOGICAL: None. LYMPHATICS: None. PSYCHIATRY: None. NEUROLOGICAL: None. Also lower extremity edema. PAST MEDICAL HISTORY: Decreased hearing, hypertension, osteoarthritis, chronic kidney disease, psoriatic arthritis, nephrotic syndrome, focal segmental glomerulosclerosis, gout, chronic kidney disease stage III, primary osteoarthritis, chronic congestive heart failure from diastolic dysfunction. Patient also has got chronic kidney disease staged III to IV. PAST SURGICAL HISTORY: Back surgery, hernia surgery, L4-L5 lumbar fusion, neck fusion, right rotator cuff, kidney biopsy , surgical scar from skin cancer. SOCIAL HISTORY: with 2 pet dogs. 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 No smoking. No alcohol. FAMILY HISTORY: Mother had hypertension. Brother had diabetes and kidney problems. HOME MEDICATIONS: 1. Prednisone 10 mg a day. 2. Amlodipine 2.5 p.o. daily. 3. Flomax 0.4 mg p.o. b.i.d. 4. Prograf 1 mg q.h.s. 5. Prograf 2 mg p.o. daily. 6. Zantac 150 mg p.o. b.i.d. 7. Inderal LA 60 mg p.o. ( ). 8. Potassium 20 mEq p.o. t.i.d. 9. Phosphorus 250 mg p.o. b.i.d. 10. Fish oil 1000 mg p.o. daily. 11. Arava 20 mg p.o. with lunch. 12. Neurontin 300 mg p.o. t.i.d. 13. Lasix 80 mg p.o. b.i.d. 14. Iron 325 p.o. daily. 15. Vitamin D2, 50,000 units p.o. Tuesday. 16. Vasotec 20 mg p.o. daily. 17. Calcium 600 mg daily. 18. Lipitor 40 mg p.o. q.h.s. 19. Aspirin 81 mg p.o. daily. 20. Eliquis 2.5 mg p.o. b.i.d. 21. Allopurinol 100 mg p.o. b.i.d. Allergies to IMITREX, KEFLEX. On examination, temperature 98.8, pulse 100, respirations 16, blood pressure 149/66, pulse ox 93% on room air. GENERAL APPEARANCE: Well built, BMI of 35. Lying in bed, tired appearing. EYES: Pupils equal. Conjunctivae pale. HENT: External appearance of nose and ears normal. Oral cavity normal. Decreased hearing. NECK: Short, thick, JVD unable to assess. Mass not palpable. RESPIRATORY: Effort increased. LUNGS: Decreased breath sounds. CARDIOVASCULAR: First and second sounds normal. Edema present. ABDOMEN: Distended, soft. Liver and spleen not palpable. LYMPHATIC: No lymph node palpable in neck or axillae. PSYCHIATRY: Alert and oriented x3. Mood and affect normal. EXTREMITIES: Swelling both of the upper extremities and lower extremities and thin skin, some bruises is present. INVESTIGATIONS: White count 10, hemoglobin 10.2, repeat 8.8. Potassium 4.3, BUN 52, creatinine 1.74. Patient's BUN and creatinine were 53 and 1.5 on 08/23/16. Albumin 2.2. ASSESSMENT: 1. Acute severe diarrhea, need to rule out Clostridium difficile. Also this could be microcolitis given that patient is immunosuppressed both on anticoagulants and immunosuppressants as evidenced by the CT scan findings. 2. Chronic kidney disease stage III to IV secondary to focal segmental glomerulosclerosis for which patient is on tacrolimus. 3. Nephrotic syndrome causing hypoalbuminemia from focal segmental glomerulosclerosis. 4. Lower extremity edema likely from hypoalbuminemia and congestive heart failure. 5. Essential hypertension. 6. Primary osteoarthritis in multiple joints, bilateral. 7. Psoriatic arthritis. 8. Chronic congestive heart failure from diastolic dysfunction, ejection fraction preserved from hypertensive heart disease. PLAN: Patient's home medications are resumed. Will get a GI opinion and Nephrology. C. difficile has been sent off. Home medications are resumed. Patient's CT scan did show colitis as above. Hence, antibiotics are in place. Care was discussed in detail with the patient and .
--- NOTE | 2016-08-26 14:02 | CONS ---
DATE OF CONSULTATION: Patient readmitted to the hospital. Patient was in the hospital from 08/20/2016 to 08/23/2016 with Clostridium difficile and diarrhea, still was having some diarrhea, went home. For the last few days has been having continued diarrhea itself at every 2 hours and patient is known to have long-standing history of hypertension, diastolic heart failure, and chronic renal failure, on multiple medications. Patient's chest x-ray showed mild pulmonary congestion but because of the loose motions, patient is not in any overt failure. Failure seems to be under control. ( ) because the CT of the chest shows colon is inflamed, patient is on IV antibiotics along with Flagyl, probably continue IV fluids for hydration. Patient does not have any elevated JVD and no shortness of breath. Patient has no edema of the legs. Patient's medications prior to admission include Zyloprim 100 mg p.o. b.i.d., vitamin D2 fifty thousand units weekly, Furosemide 80 mg p.o. b.i.d. will probably put it on hold, leflunomide 20 mg p.o. a.c. lunch, phosphorus 250 mg p.o. b.i.d., ranitidine 150 mg p.o. b.i.d., Flomax 0.4 mg p.o. b.i.d., propranolol LA 60 mg p.o. daily, enalapril 20 mg p.o. daily, Prograf 2 mg p.o. daily, calcium carbonate 600 mg p.o. daily, prednisone 10 mg p.o. daily, atorvastatin 40 mg, omega-3 fatty acids 1000 mg p.o. daily, ferrous sulfate 325 mg, Prograf 1 mg p.o. at bedtime, amlodipine 2.5 mg p.o. at bedtime. Patient also has a history of paroxysmal atrial fibrillation remaining in sinus rhythm. Patient is off of the apixaban at the present time and the aspirin. Patient's other medications include [id number] mg p.o. t.i.d., potassium 20 mEq p.o. b.i.d. not on at present time. Allergic to multiple medications, SUMATRIPTAN and CEPHALEXIN. Patient's past history, review of systems can be obtained from recent admissions. Patient had some skin cancers, definite eating disorder, deafness and hyperlipidemia, hypertension, musculoskeletal disorder, chronic renal disease, recent Clostridium difficile infection, apparently negative now. History of lumbar fusion. , lives with his at home. Never a smoker. FAMILY HISTORY: Noncontributory. Physical examination revealed a chronically ill-looking 76-year-old gentleman, not in acute distress with a pulse rate of 80 beats per minute and regular with occasional irregularities, PACs, blood pressure of 106/71, respirations of 20. Head normocephalic. HEENT unremarkable. Neck is supple. No thyroid enlargement. Patient has multiple bruises all over the body and no JVD. There is a scar on the right side, apparently had a neck surgery. CARDIAC EXAMINATION: S1 and S2, tachycardic. Lungs are clinically clear to auscultation and percussion except for a few basal crackles. Abdomen is soft, no organomegaly. Active bowel sounds. EXTREMITIES: No pedal edema. 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 Clostridium difficile test was reordered. Patient's creatinine is 1.74, BUN of 54, potassium of 4.3. Will get BNP levels and hold off on his Lasix for the time. Realizing patient is losing a lot up fluids from the dye. ASSESSMENT: 1. Acute diarrhea with colitis. 2. Rule out Clostridium difficile, acute. 3. Diastolic heart failure, stable. 4. Hypertension. 5. Hyperlipidemia. 6. Chronic renal failure, acute on chronic, acute problem. Thanks again for this kind referral.
[2016-08-26] MEDS: FUROSEMIDE 40 MG TAB PO SCH (15:34)
[2016-08-26 17:13] LABS: Glucose,Whole Blood 136 mg/dL (75-99)
[2016-08-26 21:28] LABS: Glucose,Whole Blood 201 mg/dL (75-99)
[2016-08-26] MEDS: traMADol 50 MG TAB PO PRN (22:47)
[2016-08-27 07:30] LABS: Glucose,Whole Blood 117 mg/dL (75-99)
[2016-08-27] MEDS: metroNIDAZOLE-NS PMX 500 MG in SALINE 1 100ML.BAG IVPB SCH ×2 (07:56→15:02)
[2016-08-27] MEDS: ALLOPURINOL 100 MG TAB PO SCH ×2 (07:57→20:44)
[2016-08-27] MEDS: ASPIRIN 81 MG CHEW PO SCH (07:57)
[2016-08-27] MEDS: amLODIPine 2.5 MG TAB PO SCH (07:57)
[2016-08-27] MEDS: APIXABAN 2.5 MG TABLET PO SCH ×2 (07:57→20:44)
[2016-08-27] MEDS: FERROUS SULFATE 325 MG TAB PO SCH (07:58)
[2016-08-27] MEDS: CALCIUM CARBONATE 500 MG CHEWABLE PO SCH (07:58)
[2016-08-27] MEDS: FUROSEMIDE 40 MG TAB PO SCH ×2 (07:58→15:02)
[2016-08-27] MEDS: FAMOTIDINE 20 MG TAB PO SCH (07:58)
[2016-08-27] MEDS: LISINOPRIL 20 MG TAB PO SCH (07:59)
[2016-08-27] MEDS: GABAPENTIN 300 MG CAP PO SCH ×3 (07:59→21:03)
[2016-08-27] MEDS: POTASSIUM CHLORIDE ER 20 MEQ TAB.ER PO SCH ×2 (07:59→20:43)
[2016-08-27] MEDS: TAMSULOSIN 0.4 MG CAP.ER.24H PO SCH ×2 (07:59→20:46)
[2016-08-27] MEDS: predniSONE 10 MG TAB PO SCH (07:59)
[2016-08-27] MEDS: POTAS-SOD-PHOS 278-164-250 MG 1 EACH PACKET PO SCH ×2 (07:59→20:44)
[2016-08-27] MEDS: TACROLIMUS 1 MG CAP PO SCH ×2 (08:00→20:43)
[2016-08-27] MEDS: LOPERAMIDE 2 MG CAP PO SCH ×4 (08:04→21:03)
--- NOTE | 2016-08-27 08:51 | P.PN ---
Subjective Principal diagnosis: Diarrhea 76-year-old male admitted with persistent nonbloody diarrhea. C. diff negative. Patient started on Imodium yesterday with good response. Nursing reports no episodes of diarrhea through the night. 3 episodes diarrhea since yesterday afternoon. Denies abdominal pain. Tolerating diet. Objective - Vital Signs Vital signs: Vital Signs Temp 98.4 F 08/27/16 07:00 Pulse 76 08/27/16 07:00 Resp 20 08/27/16 07:00 BP 129/69 08/27/16 07:00 Pulse Ox 93 L 08/27/16 07:00 Intake & Output 08/26/16 08/27/16 08/27/16 18:59 06:59 18:59 Intake Total 100 Balance 100 Intake: Oral 100 Other: Voiding Method Diaper Diaper # Voids 3 1 # Bowel Movements 3 1 - Exam General appearance: The patient is alert, oriented, in no acute distress. HET: Head is normocephalic and atraumatic. Pupils are equal and reactive. Oropharynx is clear without lesions. Neck: Supple without lymphadenopathy. Trachea midline. Heart: S1 S2. Regular rate and rhythm. Lungs: No crackles or wheezes are heard. Abdomen: Soft, nontender, nondistended with bowel sounds. No peritoneal signs. No palpable organomegaly or masses. Extremities: Normal skin color and turgor. No cyanosis, rash, ulceration, clubbing, or edema. Radial and pedal pulses are 2/4 bilaterally. Neurological: No focal deficits. Strength and sensation are grossly intact. - Labs CBC & Chem 7: 08/26/16 08:19 08/26/16 08:19 Labs: Abnormal Lab Results - Last 24 Hours (Table) 08/26/16 08/26/16 08/26/16 Range/Units 08: 08:19 17:11 RBC 2.80 L (4.30-5.90) m/uL Hgb 8.8 L (13.0-17.5) gm/dL Hct 27.1 L (39.0-53.0) % RDW 15.8 H (11.5-15.5) % Lymphocytes # 0.5 L (1.0-4.8) k/uL BUN 53 H (9-20) mg/dL Creatinine 1.86 H (0.66-1.25) mg/dL Glucose 73 L (74-99) mg/dL POC Glucose (mg/dL) 136 H (75-99) mg/dL Calcium 7.1 L (8.4-10.2) mg/dL 08/26/16 08/27/16 Range/Units 21:23 07:28 RBC (4.30-5.90) m/uL Hgb (13.0-17.5) gm/dL Hct (39.0-53.0) % RDW (11.5-15.5) % Lymphocytes # (1.0-4.8) k/uL BUN (9-20) mg/dL Creatinine (0.66-1.25) mg/dL Glucose (74-99) mg/dL POC Glucose (mg/dL) 201 H 117 H (75-99) mg/dL Calcium (8.4-10.2) mg/dL Assessment and Plan (1) Diarrhea Status: Acute Plan: 1. Colonoscopy was advised however patient would like to wait at this time. GI office called again to inquire about his last colonoscopy yesterday the office had no record of procedure however this morning it appears his last colonoscopy of record was performed at [facility] in [address] Mott. 2. Continue Lomotil as it seems to be helping his diarrhea. He shouldn't request another 1-2 days with Lomotil to see if diarrhea continues to stabilize. We'll keep inpatient colonoscopy as a contingency. Continue supportive measures. Diet as tolerated. Advised to return to GI office in 1 week after discharge for reevaluation and discussion of outpatient colonoscopy. Assessment and plan of care discussed with Dr. Jeff.
[2016-08-27] MEDS: LACTATED RINGERS 1,000 ML IV SCH (09:26)
--- NOTE | 2016-08-27 09:27 | P.NPCON ---
History of Present Illness - Reason for Consult chronic renal failure - History of Present Illness Reason for consultation: Chronic kidney disease History of present illness: Patient is a 76-year-old female seen in renal consultation for chronic kidney disease. 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 His creatinine on admission yesterday was slightly elevated at 1.8. Patient was recently admitted to the hospital and at that time was diagnosed with C. diff. He completed antibiotics and continued to have diarrhea. He did undergo CAT scan of the abdomen pelvis is admission which was suggestive of distal colitis. He is currently on Imodium and had no episodes of diarrhea overnight. He has also been started on IV antibiotics. No vomiting. His oral intake is good. He did receive IV fluids overnight but is now KVO. Admits to good urine output. No hematuria or dysuria. He is maintained on Prograf and prednisone for his FSGS. Denies use of NSAIDs. Vital signs are stable. General: The patient appeared well nourished and normally developed. HEENT: Head exam is unremarkable. Neck is without jugular venous distension. LUNGS: Lungs are clear to auscultation and percussion. Breath sounds decreased. HEART: Rate and Rhythm are regular. First and second heart sounds normal. No murmurs, rubs or gallops. ABDOMEN: Abdominal exam reveals normal bowel sounds. Non-tender and non- distended. No evidence of peritonitis. EXTREMITITES: 1+ edema. Past Medical History Past Medical History: Cancer, Hearing Disorder / Deafness, Hyperlipidemia, Hypertension, Musculoskeletal Disorder, Renal Disease Additional Past Medical History / Comment(s): HX SKIN CA. psoriatic arthritis. nephrotic syndrome. chronic back pain. DENIES GOUT. PAST HX OF MIGRAINES. HX iron infusion. patient states he is pre-diabetic. EDEMA PETROS LOWER LEGS, ANKLES.petros torn rotator cuffs(had a previous sx on rt side but injured it again) History of Any Multi-Drug Resistant Organisms: None Reported Past Surgical History: Back Surgery, Hernia Repair, Orthopedic Surgery Additional Past Surgical History / Comment(s): L4-5 LUMBAR FUSION-(total of 4 back surguries)NECK FUSION. RT ROTATOR CUFF," kidney bx-neg". Surgical scar from skin cancer/surgery on right side of head. MULT PAIN PROC, LAST 05/12/16. Past Anesthesia/Blood Transfusion Reactions: No Reported Reaction Past Psychological History: No Psychological Hx Reported Additional Psychological History / Comment(s): lives in the family home with his and 2 pet dogs., no steps into home. 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 No experience. No international travel. No animal exposures. No ill contacts. has a glucometer and bp machine Smoking Status: Never smoker Past Alcohol Use History: None Reported Past Drug Use History: None Reported - Past Family History Father Additional Family Medical History / Comment(s): as a results of burn injuries in work related accident Mother Additional Family Medical History / Comment(s): at age 84 from heart problems Sister(s) Family Medical History: Cancer Additional Family Medical History / Comment(s): mother-- HTN. brother-- Diabetes, kidney problems Medications and Allergies Home Medications Medication Instructions Recorded Confirmed Type Allopurinol [Zyloprim] 100 mg PO BID 01/16/14 08/25/16 History Ergocalciferol [Vitamin D2 50,000 units PO DEAL 01/16/14 08/25/16 History (DRISDOL)] Furosemide 80 mg PO BID 01/16/14 08/25/16 History Leflunomide [Arava] 20 mg PO AC-LUNCH 01/16/14 08/25/16 History Phosphorus #1 [Phospha 250 Neutral 250 mg PO BID 01/16/14 08/25/16 History Tablet] Ranitidine HCl [Zantac] 150 mg PO BID 01/16/14 08/25/16 History Tamsulosin HCl [Flomax] 0.4 mg PO BID 01/16/14 08/25/16 History Propranolol LA [Inderal LA] 60 mg PO AC-LUNCH 12/17/14 08/25/16 History Enalapril [Vasotec] 20 mg PO DAILY 03/27/15 08/25/16 History Tacrolimus [Prograf] 2 mg PO DAILY 03/27/15 08/25/16 History Calcium Carbonate [Calcium] 600 mg PO DAILY 03/25/16 08/25/16 History predniSONE 10 mg PO DAILY 03/25/16 08/25/16 History Atorvastatin [Lipitor] 40 mg PO HS 04/18/16 08/25/16 History Noel-3 Fatty Acids/Fish Oil [Fish 1,000 mg PO DAILY 04/18/16 08/25/16 History Oil 1,000 mg Softgel] Ferrous Sulfate [Feosol] 325 mg PO DAILY 08/19/16 08/25/16 History Tacrolimus [Prograf] 1 mg PO HS 08/19/16 08/25/16 History amLODIPine [Norvasc] 2.5 mg PO DAILY 08/19/16 08/25/16 History Allergies Allergy/AdvReac Type Severity Reaction Status Date / Time sumatriptan [From Imitrex] Allergy Swelling Verified 08/25/16 14:12 sumatriptan succinate Allergy Swelling Verified 08/25/16 14:12 [From Imitrex] cephalexin [From Keflex] AdvReac Diarrhea Verified 08/25/16 14:12 Physical Exam Vitals: Vital Signs Temp Pulse Pulse Resp BP Pulse Ox 08/27/16 07:00 98.4 F 76 20 129/69 93 L 08/26/16 23:00 98.1 F 76 16 118/64 96 08/26/16 15:10 16 08/26/16 15:00 97.8 F 85 16 115/68 96 Intake and Output 08/26/16 08/27/16 08/27/16 22:59 06:59 14:59 Intake Total 100 240 Balance 100 240 Intake: Oral 100 240 Other: Voiding Method Diaper # Voids 1 # Bowel Movements 1 Results - Lab Results Most recent lab results Calcium 7.1 mg/dL (8.4-10.2) L 08/26/16 08:19 Phosphorus 4.4 mg/dL (2.5-4.5) 08/26/16 08:19 Magnesium 1.6 mg/dL (1.6-2.3) 08/26/16 08:19 08/26/16 08:19 08/26/16 08:19 Assessment and Plan Plan: Assessment: #1. Nonoliguric acute kidney injury mostly prerenal secondary to diarrhea and diuretics. Creatinine 1.8 on admission. He did receive IV fluids overnight. Next line #2. Chronic kidney disease stage IV secondary to FSGS with baseline creatinine near 1.6. #3. Diarrhea. CAT scan suggestive of distal colitis. #4. Anemia. Rule out iron deficiency. Plan: Hep-Lock IV fluids. Continue Lasix 40 mg orally twice daily. Encourage oral intake. Check iron studies. Avoid nephrotoxic agents and hypotensive episodes. GI recommendations pending. Maintain Prograf and prednisone. Repeat electrolytes in the morning. Thank you for the consultation. I will continue to follow the patient with you during his hospital stay.
[2016-08-27] MEDS: SODIUM CHLORIDE 0.9% 1,000 ML IV SCH (10:22)
[2016-08-27 11:30] LABS: Iron <10 ug/dL (49-181)
[2016-08-27 11:43] LABS: % Iron Saturation <6.0 % (20-50); Total Iron Binding Capacity 167 ug/dL (261-462)
[2016-08-27 11:55] LABS: Glucose,Whole Blood 158 mg/dL (75-99)
[2016-08-27] MEDS: LEFLUNOMIDE 20 MG TAB PO SCH (13:07)
[2016-08-27] MEDS: PROPRANOLOL LA 60 MG CAP.SA.24H PO SCH (13:07)
[2016-08-27 17:27] LABS: Glucose,Whole Blood 202 mg/dL (75-99)
[2016-08-27 20:37] LABS: Glucose,Whole Blood 191 mg/dL (75-99)
[2016-08-27] MEDS: ATORVASTATIN 40 MG TAB PO SCH (20:44)
[2016-08-27] MEDS: PSYLLIUM HUSK 100% 6 GM PACKET PO SCH (21:04)
[2016-08-28] MEDS: traMADol 50 MG TAB PO PRN (07:22)
[2016-08-28 07:36] LABS: Glucose,Whole Blood 132 mg/dL (75-99)
[2016-08-28] MEDS: PSYLLIUM HUSK 100% 6 GM PACKET PO SCH ×2 (08:05→22:01)
[2016-08-28] MEDS: POTAS-SOD-PHOS 278-164-250 MG 1 EACH PACKET PO SCH ×2 (08:05→22:25)
[2016-08-28] MEDS: POTASSIUM CHLORIDE ER 20 MEQ TAB.ER PO SCH ×2 (08:09→21:58)
[2016-08-28] MEDS: TACROLIMUS 1 MG CAP PO SCH ×2 (08:09→21:58)
[2016-08-28] MEDS: FAMOTIDINE 20 MG TAB PO SCH (08:09)
[2016-08-28] MEDS: ALLOPURINOL 100 MG TAB PO SCH ×2 (08:09→21:58)
[2016-08-28] MEDS: TAMSULOSIN 0.4 MG CAP.ER.24H PO SCH ×2 (08:09→21:58)
[2016-08-28] MEDS: CALCIUM CARBONATE 500 MG CHEWABLE PO SCH (08:09)
[2016-08-28] MEDS: APIXABAN 2.5 MG TABLET PO SCH ×2 (08:09→21:59)
[2016-08-28] MEDS: LISINOPRIL 20 MG TAB PO SCH (08:09)
[2016-08-28] MEDS: GABAPENTIN 300 MG CAP PO SCH ×3 (08:10→21:58)
[2016-08-28] MEDS: ASPIRIN 81 MG CHEW PO SCH (08:10)
[2016-08-28] MEDS: predniSONE 10 MG TAB PO SCH (08:10)
[2016-08-28] MEDS: amLODIPine 2.5 MG TAB PO SCH (08:10)
[2016-08-28] MEDS: FERROUS SULFATE 325 MG TAB PO SCH (08:10)
[2016-08-28] MEDS: FUROSEMIDE 40 MG TAB PO SCH ×2 (08:10→16:06)
[2016-08-28] MEDS: LOPERAMIDE 2 MG CAP PO SCH ×2 (08:23→12:10)
--- NOTE | 2016-08-28 08:34 | PN ---
DATE OF SERVICE: 08/27/2016 PRESENTING COMPLAINT: Tired. INTERVAL HISTORY: This is a patient who presented with antibiotic associated diarrhea, severe. Clostridium difficile was negative. Diarrhea has settled down. Eating better. is at the bedside. Review of systems done for constitutional, cardiovascular, GI, pulmonary; relevant findings as above. Current medications are reviewed that include ceftriaxone and Flagyl. On examination, temperature 97.6, pulse 76, respirations 20, blood pressure 130/72, pulse ox 96% percent on room air. GENERAL APPEARANCE: Lying in bed, not in distress. EYES: Pupils equal. Conjunctivae normal. NECK: JVD not raised. Mass not palpable. RESPIRATORY: Effort increased. LUNGS: Decreased breath sounds. CARDIOVASCULAR: First and second sounds. Some edema present. ABDOMEN: Distended, soft. Liver and spleen not palpable. PSYCHIATRY: Alert and oriented x3. Mood and affect is normal. INVESTIGATIONS: Accu-Cheks are noted. Clostridium difficile is negative. ASSESSMENT: 1. Acute severe
--- NOTE | 2016-08-28 08:37 | PN ---
DATE OF SERVICE: 08/27/2016 PRESENTING COMPLAINT: Severe diarrhea. INTERVAL HISTORY: This is a patient who presented with severe diarrhea. There is a question about this being colitis. Patient's diarrhea has completely resolved. C-diff negative. [place] more to be antibiotic-associated diarrhea. The patient is eating well. Breathing is stable. is at the bedside. Review of systems done for constitutional, cardiovascular, GI, pulmonary; relevant findings as above. Current medications are reviewed. On examination, temperature 97.6, pulse 76, respirations 20, blood pressure 130/72, pulse ox 96% on room air. GENERAL APPEARANCE: Lying in bed. Awake eyes, ears normal. NECK: JVD not raised. Mass not palpable. RESPIRATORY: Effort normal. LUNGS: Diminished breath sounds. CARDIOVASCULAR: First and second heart sounds normal. ABDOMEN: Soft, nontender. PSYCHIATRY: Awake, answering questions. INVESTIGATIONS: Accu-Cheks are noted. ASSESSMENT: 1. Acute severe diarrhea. Clostridium difficile ruled out. Probably antibiotic-associated diarrhea. 2. Chronic kidney disease stage III to IV, secondary to focal segmental glomerulosclerosis, patient is on tacrolimus. 3. Nephrotic syndrome causing hypoalbuminemia from focal segmental glomerulosclerosis (FSGS). 4. Lower extremity edema, likely hypoalbuminemia and congestive heart failure. 5. Essential hypertension. 6. Primary osteoarthritis of multiple joints, bilateral. 7. Psoriatic arthritis. 8. Chronic congestive heart failure from diastolic dysfunction; ejection fraction preserved from hypertensive heart disease. PLAN: Care was discussed with the . As per GI, antibiotics will be discontinued. We will add Metamucil to add more bulk to the stool. We will see how the patient does. Repeat labs in the morning. Will follow.
[2016-08-28 09:13] LABS: Calcium 7.5 mg/dL (8.4-10.2); Potassium 4.4 mmol/L (3.5-5.1)
[2016-08-28] MEDS: SODIUM CHLORIDE 0.9% 1,000 ML IV SCH (09:44)
--- NOTE | 2016-08-28 11:29 | P.PN ---
Subjective Patient is seen in follow-up for chronic kidney disease stage IIB/IV secondary to FSGS. His baseline creatinine is near 2. GFR is stable with creatinine of 1.77 today. Diarrhea seems to have resolved. No vomiting. Admits to good urine output. No other complaints at this time. Vital signs are stable. General: The patient appeared well nourished and normally developed. HEENT: Head exam is unremarkable. Neck is without jugular venous distension. LUNGS: Lungs are clear to auscultation and percussion. Breath sounds decreased. HEART: Rate and Rhythm are regular. First and second heart sounds normal. No murmurs, rubs or gallops. ABDOMEN: Abdominal exam reveals normal bowel sounds. Non-tender and non- distended. No evidence of peritonitis. EXTREMITITES: No clubbing, cyanosis, or edema. Objective - Vital Signs Vital signs: Vital Signs Temp 97.1 F L 08/28/16 07:00 Pulse 74 08/28/16 07:00 Resp 24 08/28/16 07:00 BP 184/87 08/28/16 07:00 Pulse Ox 96 08/28/16 07:00 Intake & Output 08/27/16 08/28/16 08/28/16 18:59 06:59 18:59 Intake Total 240 550 240 Balance 240 550 240 Weight 105 kg Intake: Oral 240 550 240 Other: Voiding Method Diaper Diaper # Voids 3 2 # Bowel Movements 0 0 - Labs CBC & Chem 7: 08/26/16 08:19 08/28/16 08:13 Labs: Abnormal Lab Results - Last 24 Hours (Table) 08/26/16 08/27/16 08/27/16 Range/Units 08:19 11:52 17:22 Chloride (98-107) mmol/L BUN (9-20) mg/dL Creatinine (0.66-1.25) mg/dL Glucose (74-99) mg/dL POC Glucose (mg/dL) 158 H 202 H (75-99) mg/dL Calcium (8.4-10.2) mg/dL Iron <10 L (49-181) ug/dL TIBC 167 L (261-462) ug/dL % Saturation <6.0 L (20-50) % Ferritin 1070 H (18-464) ng/mL 08/27/16 08/28/16 08/28/16 Range/Units 20:26 07:13 08:13 Chloride 111 H (98-107) mmol/L BUN 59 H (9-20) mg/dL Creatinine 1.77 H (0.66-1.25) mg/dL Glucose 132 H (74-99) mg/dL POC Glucose (mg/dL) 191 H 132 H (75-99) mg/dL Calcium 7.5 L (8.4-10.2) mg/dL Iron (49-181) ug/dL TIBC (261-462) ug/dL % Saturation (20-50) % Ferritin (18-464) ng/mL Assessment and Plan Plan: Assessment: #1. Nonoliguric acute kidney injury mostly prerenal secondary to diarrhea and diuretics. Creatinine 1.8 on admission and 1.77 today. #2. Chronic kidney disease stage IV secondary to FSGS with baseline creatinine near 1.6-1.8. #3. Diarrhea. CAT scan suggestive of distal colitis. Improved. #4. Anemia. Iron deficiency present. Plan: Hep-Lock IV fluids. Continue Lasix 40 mg orally twice daily. Encourage oral intake. Ferrlecit 125 mg IV daily for 3 days. First dose today. Avoid nephrotoxic agents and hypotensive episodes. GI following. Maintain Prograf and prednisone. Repeat electrolytes in the morning.
[2016-08-28 11:54] LABS: Glucose,Whole Blood 153 mg/dL (75-99)
[2016-08-28] MEDS: PROPRANOLOL LA 60 MG CAP.SA.24H PO SCH (12:08)
[2016-08-28] MEDS: LEFLUNOMIDE 20 MG TAB PO SCH (12:09)
[2016-08-28] MEDS: SODIUM FERRIC GLUCONAT-SUCROSE 125 MG in SODIUM CHLORIDE 0.9% 100 ML IVPB SCH (12:44)
[2016-08-28] MEDS ORDERED: LOPERAMIDE 2 MG CAP PO PRN (14:11)
[2016-08-28 17:10] LABS: Glucose,Whole Blood 200 mg/dL (75-99)
--- NOTE | 2016-08-28 17:37 | PN ---
DATE OF SERVICE: 08/28/2016 PRESENTING COMPLAINT: Diarrhea, better. INTERVAL HISTORY: This is a patient who presented with severe diarrhea, C. diff came back negative. Has had no diarrhea since yesterday, felt to be again antibiotic-associated diarrhea. Diet is improving. Patient is concerned about going home as he is on Imodium and thinks it might come back again. I also started the patient on fibers yesterday. Patient is eating better. Review of systems done for constitutional, cardiovascular, GI, pulmonary; relevant findings as above. Current medications include some Metamucil. On examination, temperature 97.1, pulse 74, respiration 24, blood pressure 184/87, pulse ox 96% on room air. Blood pressure before that was 140/84. GENERAL APPEARANCE: Lying in bed, comfortable. EYES: Pupils equal. Conjunctivae normal. NECK: JVD not raised. Mass not palpable. Respiratory effort normal. LUNGS: Diminished breath sounds. CARDIOVASCULAR: First and second sounds normal. No edema present. ABDOMEN: Soft, nontender. Liver and spleen not palpable. PSYCHIATRY: Alert and oriented x3. Mood and affect was normal. INVESTIGATIONS: BUN 59, creatinine 1.77. ASSESSMENT: 1. Acute severe diarrhea, Clostridium difficile ruled out, felt to be antibiotic-associated, no diarrhea since yesterday on Imodium. 2. Chronic kidney stage III to IV secondary to focal segment of glomerular sclerosis. Patient is on tacrolimus. 3. Nephrotic syndrome causing hypoalbuminemia from FSGS. 4. Lower extremity edema likely hypoalbuminemia and congestive heart failure. 5. Essential hypertension. 6. Primary osteoarthritis of multiple joints, bilateral. 7. Psoriatic arthritis. 8. Congestive heart failure from diastolic dysfunction, ejection fraction preserved from hypertensive heart disease. PLAN: Care discussed with the patient, will change the patient's Imodium to p.r.n. Keep the patient on Metamucil and see how he does today. Defer the discharge for another 24 hours.
[2016-08-28 21:17] LABS: Glucose,Whole Blood 201 mg/dL (75-99)
[2016-08-28] MEDS: ATORVASTATIN 40 MG TAB PO SCH (21:58)
[2016-08-29 00:34] VITALS: TEMP 96.9
[2016-08-29 07:35] LABS: Glucose,Whole Blood 99 mg/dL (75-99)
[2016-08-29 07:43] VITALS: BP 166/98; RESP 22
[2016-08-29 08:45] LABS: Basophils % (A) 0 %; CH 30.3; CHCM 31.1; Eosinophils # (A) 0.3 k/uL (0-0.7); Eosinophils % (A) 3 %; HCT 29.9 % (39.0-53.0); HDW 2.43; HGB 9.3 gm/dL (13.0-17.5); Hypochromasia Slight; Luc # (Auto) 0.14; Luc % (Auto) 2; Lymphocytes # (A) 0.7 k/uL (1.0-4.8); Lymphocytes % (A) 8 %; MCH 30.2 pg (25.0-35.0); MCV 97.6 fL (80.0-100.0); Mean Platelet Volume 7.4; Monocytes # (A) 0.4 k/uL (0-1.0); Monocytes % (A) 5 %; Neutrophils # (A) 6.4 k/uL (1.3-7.7); Neutrophils % (A) 81 %; RBC 3.07 m/uL (4.30-5.90); RDW 15.5 % (11.5-15.5); WBC 7.9 k/uL (3.8-10.6); WBC (Perox) 8.19
[2016-08-29] MEDS: PSYLLIUM HUSK 100% 6 GM PACKET PO SCH (08:48)
[2016-08-29] MEDS: GABAPENTIN 300 MG CAP PO SCH (08:48)
[2016-08-29] MEDS: SODIUM FERRIC GLUCONAT-SUCROSE 125 MG in SODIUM CHLORIDE 0.9% 100 ML IVPB SCH (08:48)
[2016-08-29] MEDS: TAMSULOSIN 0.4 MG CAP.ER.24H PO SCH (08:49)
[2016-08-29] MEDS: ALLOPURINOL 100 MG TAB PO SCH (08:49)
[2016-08-29] MEDS: POTAS-SOD-PHOS 278-164-250 MG 1 EACH PACKET PO SCH (08:49)
[2016-08-29] MEDS: TACROLIMUS 1 MG CAP PO SCH (08:49)
[2016-08-29] MEDS: FUROSEMIDE 40 MG TAB PO SCH (08:49)
[2016-08-29] MEDS: FAMOTIDINE 20 MG TAB PO SCH (08:49)
[2016-08-29] MEDS: APIXABAN 2.5 MG TABLET PO SCH (08:50)
[2016-08-29] MEDS: CALCIUM CARBONATE 500 MG CHEWABLE PO SCH (08:50)
[2016-08-29] MEDS: LISINOPRIL 20 MG TAB PO SCH (08:50)
[2016-08-29] MEDS: amLODIPine 2.5 MG TAB PO SCH (08:50)
[2016-08-29] MEDS: ASPIRIN 81 MG CHEW PO SCH (08:50)
[2016-08-29] MEDS: FERROUS SULFATE 325 MG TAB PO SCH (08:51)
[2016-08-29] MEDS: POTASSIUM CHLORIDE ER 20 MEQ TAB.ER PO SCH (08:51)
[2016-08-29] MEDS: predniSONE 10 MG TAB PO SCH (08:51)
[2016-08-29] MEDS ORDERED: ERGOCALCIFEROL 50,000 UNIT CAP PO SCH (09:00)
[2016-08-29 09:02] LABS: Calcium 7.8 mg/dL (8.4-10.2); Potassium 4.4 mmol/L (3.5-5.1)
--- NOTE | 2016-08-29 10:07 | P.PN ---
Subjective Patient is seen in follow-up for chronic kidney disease stage IIB/IV secondary to FSGS. His baseline creatinine is near 2. GFR is stable with creatinine of 1.6 today. Diarrhea seems to have resolved. No vomiting. Admits to good urine output. No other complaints at this time. He is eager to be discharged. Vital signs are stable. General: The patient appeared well nourished and normally developed. HEENT: Head exam is unremarkable. Neck is without jugular venous distension. LUNGS: Lungs are clear to auscultation and percussion. Breath sounds decreased. HEART: Rate and Rhythm are regular. First and second heart sounds normal. No murmurs, rubs or gallops. ABDOMEN: Abdominal exam reveals normal bowel sounds. Non-tender and non- distended. No evidence of peritonitis. EXTREMITITES: No clubbing, cyanosis, or edema. Objective - Vital Signs Vital signs: Vital Signs Temp 96.9 F L 08/29/16 07:00 Pulse 77 08/29/16 07:00 Resp 22 08/29/16 07:00 BP 166/98 08/29/16 07:00 Pulse Ox 95 08/29/16 07:00 Intake & Output 08/28/16 08/29/16 08/29/16 18:59 06:59 18:59 Intake Total 480 200 240 Balance 480 200 240 Weight 104.5 kg Intake: Oral 480 200 240 Other: Voiding Method Diaper Diaper Incontinent # Voids 4 3 # Bowel Movements 0 1 - Labs CBC & Chem 7: 08/29/16 07:52 08/29/16 07:52 Labs: Abnormal Lab Results - Last 24 Hours (Table) 08/28/16 08/28/16 08/28/16 Range/Units 11:40 17:04 21:02 RBC (4.30-5.90) m/uL Hgb (13.0-17.5) gm/dL Hct (39.0-53.0) % Lymphocytes # (1.0-4.8) k/uL Chloride (98-107) mmol/L BUN (9-20) mg/dL Creatinine (0.66-1.25) mg/dL Glucose (74-99) mg/dL POC Glucose (mg/dL) 153 H 200 H 201 H (75-99) mg/dL Calcium (8.4-10.2) mg/dL 08/29/16 08/29/16 Range/Units 07:52 07:52 RBC 3.07 L (4.30-5.90) m/uL Hgb 9.3 L (13.0-17.5) gm/dL Hct 29.9 L (39.0-53.0) % Lymphocytes # 0.7 L (1.0-4.8) k/uL Chloride 112 H (98-107) mmol/L BUN 57 H (9-20) mg/dL Creatinine 1.60 H (0.66-1.25) mg/dL Glucose 110 H (74-99) mg/dL POC Glucose (mg/dL) (75-99) mg/dL Calcium 7.8 L (8.4-10.2) mg/dL Assessment and Plan Plan: Assessment: #1. Nonoliguric acute kidney injury mostly prerenal secondary to diarrhea and diuretics. Creatinine 1.8 on admission and 1.6 today. #2. Chronic kidney disease stage IV secondary to FSGS with baseline creatinine near 1.6-1.8. #3. Diarrhea. CAT scan suggestive of distal colitis. Improved. #4. Anemia. Iron deficiency present. Plan: Hep-Lock IV fluids. Continue Lasix 40 mg orally twice daily. Encourage oral intake. Ferrlecit 125 mg IV daily for 3 days. Second dose today. Avoid nephrotoxic agents and hypotensive episodes. GI following. Maintain Prograf and prednisone. Repeat electrolytes in the morning. Stable to be discharged home from nephrology standpoint and to follow-up as an outpatient in the next 1-2 weeks.
[2016-08-29 12:05] LABS: Glucose,Whole Blood 115 mg/dL (75-99)
[2016-08-29] MEDS: PROPRANOLOL LA 60 MG CAP.SA.24H PO SCH (12:07)
[2016-08-29] MEDS: SODIUM CHLORIDE 0.9% 1,000 ML IV SCH (12:07)
[2016-08-29] MEDS: LEFLUNOMIDE 20 MG TAB PO SCH (12:07)
[2016-08-29 12:14] VITALS: PULSE 84
--- NOTE | 2016-08-30 12:49 | DS ---
DATE OF ADMISSION: 08/25/2016 DATE OF DISCHARGE: 08/29/2016 FINAL DIAGNOSIS(ES): 1. Acute severe diarrhea probably antibiotic associated negative for C. difficile. 2. Chronic kidney disease, stage III, due to focal segmental globular sclerosis. 3. Acute nephrotic syndrome causing hypoalbuminemia, from ( ). 4. Lower extremity edema likely hypoalbuminemia and congestive heart failure. 5. Essential hypertension. 6. Primary osteoarthritis of multiple joints, bilateral. 7. Psoriatic arthritis. 8. Congestive heart failure from diastolic dysfunction; ejection fraction preserved from hypertensive heart disease, chronic. HOSPITAL COURSE: This patient again presented with diarrhea felt to be antibiotic associated again. Antibiotics were therefore discontinued. Patient was put on Metamucil to which he responded well. On the day of discharge, care was discussed in detail with the patient and . BUN is 57, creatinine 1.60. CONSULTATION: Dr. Hutchins from nephrology. Dr. Jeff from GI. On examination: ABDOMEN: Soft, nontender. Some edema is present. DISCHARGE MEDICATIONS: 1. Allopurinol 100 mg p.o. b.i.d. 2. Vitamin D2 50,000 units p.o. on Tuesday. 3. Lasix 80 mg b.i.d. 4. Arava 20 mg p.o. with lunch. 5. Phos nutri tablet 250 mg p.o. b.i.d. 6. Zantac 150 mg p.o. b.i.d. 7. Flomax 0.4 mg b.i.d. 8. Inderal LA 60 mg p.o. at lunch. 9. Vasotec 20 mg p.o. daily. 10. Prograf 2 mg p.o. daily. 11. Calcium 600 mg p.o. daily. 12. Prednisone 10 mg p.o. daily. 13. Lipitor 40 mg p.o. q.h.s. 14. Fish oil 1000 milligrams p.o. daily. 15. Iron 325 p.o. daily. 16. Prograf 1 mg p.o. q.h.s. 17. Norvasc 2.5 mg p.o. daily. 18. Eliquis 2.5 mg p.o. b.i.d. 19. Aspirin 81 mg p.o. daily. 20. Neurontin 300 mg p.o. t.i.d. 21. Potassium 20 mL b.i.d. 22. Lasix 40 mg b.i.d. 23. Imodium 2 mg p.o. q.i.d. p.r.n. for diarrhea. 24. Metamucil 6 grams p.o. b.i.d. 25. Ultram 50 mg q.6h p.r.n. Follow up with Dr. Jeff in one week, Dr. Hall in one week. RAYNA in one week. Follow with nephrology, Keep appointment as before.
--- NOTE | 2016-09-30 11:00 | DS ---
DATE OF ADMISSION: 08/25/2016 DATE OF DISCHARGE: 08/29/2016 ADDENDUM: Discharge planning including discussion more than 35 minutes.
== END 2016-08-29 14:24 | disposition home health service (06) | DRG 394 ==
LOC: EC 14:02 → 4MS4W 17:04
PROVIDERS: ADMIT Hospitalist; ATTEND Hospitalist
DX: K52.1 Toxic gastroenteritis and colitis (principal); I13.0 Hypertensive heart and chronic kidney disease with heart failure and stage 1 through stage 4 chronic kidney disease, or unspecified chronic kidney disease; N18.4 Chronic kidney disease, stage 4 (severe); N04.9 Nephrotic syndrome with unspecified morphologic changes; I50.32 Chronic diastolic (congestive) heart failure; N17.9 Acute kidney failure, unspecified; E88.09 Other disorders of plasma-protein metabolism, not elsewhere classified; I48.0 Paroxysmal atrial fibrillation; E78.5 Hyperlipidemia, unspecified; L40.50 Arthropathic psoriasis, unspecified; G43.909 Migraine, unspecified, not intractable, without status migrainosus; T36.95XA Adverse effect of unspecified systemic antibiotic, initial encounter; H91.90 Unspecified hearing loss, unspecified ear; M10.9 Gout, unspecified; M15.9 Polyosteoarthritis, unspecified; G89.29 Other chronic pain; M54.9 Dorsalgia, unspecified; D50.9 Iron deficiency anemia, unspecified; T50.2X5A Adverse effect of carbonic-anhydrase inhibitors, benzothiadiazides and other diuretics, initial encounter; Z79.52 Long term (current) use of systemic steroids; Z79.82 Long term (current) use of aspirin; Z79.899 Other long term (current) drug therapy; Z85.828 Personal history of other malignant neoplasm of skin; Z98.1 Arthrodesis status; Z82.49 Family history of ischemic heart disease and other diseases of the circulatory system; Y92.009 Unspecified place in unspecified non-institutional (private) residence as the place of occurrence of the external cause; Y92.239 Unspecified place in hospital as the place of occurrence of the external cause
CPT/HCPCS: 36415; 74176; 80048; 80053; 82728; 83540; 83550; 83690; 83735; 84100; 85025; 87324; 93005; 96361; 96365; 96367; 96375; 99285

== ENCOUNTER 2016-09-04 13:59 | Inpatient (IN) | payer MEDICARE ==
[2016-09-04] MEDS ORDERED: ACETAMINOPHEN IV (For NPO) 1,000 MG in EMPTY BAG 1 BAG IVPB STA (14:41)
[2016-09-04] MEDS ORDERED: IBUPROFEN IV 600 MG in SODIUM CHLORIDE 0.9% 250 ML IV STA (14:42)
--- NOTE | 2016-09-04 14:44 | ED ---
General Adult HPI - General Chief complaint: Shortness of Breath Stated complaint: BERNARDA Time Seen by Provider: 09/04/16 14:10 Source: patient, EMS, RN notes reviewed Mode of arrival: EMS Limitations: no limitations - History of Present Illness Initial comments: This is a 76-year-old male who presents emergency Department with a past history significant for recent hospitalizations or diarrhea. Patient comes in today because he short of breath and becoming more confused and had had a fever at home today. states he did start having diarrhea again last evening as well. Patient himself denies being short of breath currently and he states he is in no pain whatsoever. He denies any headache he denies any numbness or focal weakness. Patient denies any chest pain palpitations. Patient denies any abdominal pain patient denies nausea vomiting or diarrhea. Patient has edema of the right leg more than the left he states and his agrees that that is normal for him. Patient is on eliquis. Patient has a history of hypertension and renal disease. - Related Data Home Medications Medication Instructions Recorded Confirmed Allopurinol [Zyloprim] 200 mg PO DAILY 01/16/14 09/04/16 Ergocalciferol [Vitamin D2 50,000 units PO DEAL 01/16/14 09/04/16 (DRISDOL)] Leflunomide [Arava] 20 mg PO AC-LUNCH 01/16/14 09/04/16 Phosphorus #1 [Phospha 250 Neutral 250 mg PO BID 01/16/14 09/04/16 Tablet] Ranitidine HCl [Zantac] 150 mg PO BID 01/16/14 09/04/16 Tamsulosin HCl [Flomax] 0.4 mg PO BID 01/16/14 09/04/16 Propranolol LA [Inderal LA] 60 mg PO AC-LUNCH 12/17/14 09/04/16 Tacrolimus [Prograf] 2 mg PO DAILY 03/27/15 09/04/16 Calcium Carbonate [Calcium] 600 mg PO DAILY 03/25/16 09/04/16 predniSONE 10 mg PO DAILY 03/25/16 09/04/16 Atorvastatin [Lipitor] 40 mg PO HS 04/18/16 09/04/16 [place]-3 Fatty Acids/Fish Oil [Fish 1 cap PO DAILY 04/18/16 09/04/16 Oil 1,000 mg Softgel] Tacrolimus [Prograf] 1 mg PO HS 08/19/16 09/04/16 amLODIPine [Norvasc] 2.5 mg PO DAILY 08/19/16 09/04/16 Enalapril Maleate [Vasotec] 20 mg PO DAILY 09/04/16 09/04/16 Gabapentin [Neurontin] 600 mg PO BID@1600,2200 09/04/16 09/04/16 Previous Rx's Medication Instructions Recorded Apixaban [Eliquis] 2.5 mg PO BID #60 tablet 08/23/16 Aspirin 81 mg PO DAILY chew 08/23/16 Potassium Chloride ER [K-Dur 20] 20 meq PO BID #60 tab.er.prt 08/23/16 Acetaminophen Tab [Tylenol] 650 mg PO Q6HR PRN #0 tab 08/29/16 Furosemide [Lasix] 40 mg PO BID@0900,1600 #60 tab 08/29/16 Loperamide [Imodium] 2 mg PO QID PRN #20 cap 08/29/16 Psyllium [place] 100% [Metamucil 6 gm PO BID #60 packet 08/29/16 Packet] traMADol HCl [Ultram] 50 mg PO Q6H PRN #30 tab 08/29/16 Allergies Allergy/AdvReac Type Severity Reaction Status Date / Time sumatriptan [From Imitrex] Allergy Swelling Verified 09/04/16 14:09 sumatriptan succinate Allergy Swelling Verified 09/04/16 14:09 [From Imitrex] cephalexin [From Keflex] AdvReac Diarrhea Verified 09/04/16 14:09 Review of Systems ROS Statement: Those systems with pertinent positive or pertinent negative responses have been documented in the HPI. ROS Other: All systems not noted in ROS Statement are negative. Past Medical History Past Medical History: Cancer, Hearing Disorder / Deafness, Hyperlipidemia, Hypertension, Musculoskeletal Disorder, Renal Disease Additional Past Medical History / Comment(s): HX SKIN CA. psoriatic arthritis. nephrotic syndrome. chronic back pain. DENIES GOUT. PAST HX OF MIGRAINES. HX iron infusion. patient states he is pre-diabetic. EDEMA PETROS LOWER LEGS, ANKLES.petros torn rotator cuffs(had a previous sx on rt side but injured it again) History of Any Multi-Drug Resistant Organisms: None Reported Past Surgical History: Back Surgery, Hernia Repair, Orthopedic Surgery Additional Past Surgical History / Comment(s): L4-5 LUMBAR FUSION-(total of 4 back surguries)NECK FUSION. RT ROTATOR CUFF," kidney bx-neg". Surgical scar from skin cancer/surgery on right side of head. MULT PAIN PROC, LAST 05/12/16. Past Anesthesia/Blood Transfusion Reactions: No Reported Reaction Past Psychological History: No Psychological Hx Reported Additional Psychological History / Comment(s): lives in the family home with his and 2 pet dogs., no steps into home. 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 No experience. No international travel. No animal exposures. No ill contacts. has a glucometer and bp machine Smoking Status: Never smoker Past Alcohol Use History: None Reported Past Drug Use History: None Reported - Past Family History Father Additional Family Medical History / Comment(s): as a results of burn injuries in work related accident Mother Additional Family Medical History / Comment(s): at age 84 from heart problems Sister(s) Family Medical History: Cancer Additional Family Medical History / Comment(s): mother-- HTN. brother-- Diabetes, kidney problems General Exam - General Exam Comments Initial Comments: GENERAL: Patient is well-developed and well-nourished. Patient is nontoxic and well- hydrated and is in mild distress. ENT: Neck is soft and supple. No significant lymphadenopathy is noted. Oropharynx is clear. Moist mucous membranes. Neck has full range of motion without eliciting any pain. EYES: The sclera were anicteric and conjunctiva were pink and moist. Extraocular movements were intact and pupils were equal round and reactive to light. Eyelids were unremarkable. PULMONARY: Unlabored respirations. Good breath sounds bilaterally. No audible rales rhonchi or wheezing was noted. CARDIOVASCULAR: There is a regular rate and rhythm without any murmurs gallops or rubs. ABDOMEN: Soft and nontender with normal bowel sounds. No palpable organomegaly was noted. There is no palpable pulsatile mass. SKIN: Skin is pale and her multiple areas of ecchymosis. Neurologic: Patient is alert and oriented x3. Cranial nerves II through XII are grossly intact. Motor and sensory are also intact. Normal speech, volume and content. Symmetrical smile. MUSCULOSKELETAL: Normal extremities with adequate strength and full range of motion. No lower extremity swelling or edema. No calf tenderness. LYMPHATICS: No significant lymphadenopathy is noted PSYCHIATRIC: Normal psychiatric evaluation. Normal interpersonal interactions appears functionally intact in deals appropriately with others. No signs of depression. No signs of anxiety. Limitations: no limitations Course Vital Signs 09/04/16 09/04/16 09/04/16 14:06 14:10 15:15 Temperature 101.1 F H 100.6 F H Pulse Rate 115 H 111 H Pulse Rate [ 110 H Apical] Respiratory 20 24 Rate Blood Pressure 149/88 149/88 O2 Sat by Pulse 93 L 96 Oximetry Medical Decision Making - Medical Decision Making EKG shows a wide QRS rhythm with occasional PVCs at 114 bpm QRS is 120 Q-T is 308 QTC is 424. Patient has a right bundle branch block. I compared this EKG to an old EKG there are no acute changes. Chest x-ray shows congestive heart.. Because of the patient's fever I started him on antibiotics prophylactically. I found no specific source of the fever at this time. Spoke with Dr. Gupta agreed to admit the patient admitted the patient I continued Lasix after her initial dose in the emergency department and continue Nitropaste. - Lab Data Result diagrams: 09/04/16 14:15 09/04/16 14:15 Lab Results 09/04/16 09/04/16 09/04/16 Range/Units 14:15 14:15 14:15 WBC 11.1 H (3.8-10.6) k/uL RBC 3.20 L (4.30-5.90) m/uL Hgb 9.8 L (13.0-17.5) gm/dL Hct 30.6 L (39.0-53.0) % MCV 95.8 (80.0-100.0) fL MCH 30.6 (25.0-35.0) pg MCHC 32.0 (31.0-37.0) g/dL RDW 16.2 H (11.5-15.5) % Plt Count 226 (150-450) k/uL Neutrophils % 91 % Lymphocytes % 3 % Monocytes % 5 % Eosinophils % 1 % Basophils % 0 % Neutrophils # 10.0 H (1.3-7.7) k/uL Lymphocytes # 0.3 L (1.0-4.8) k/uL Monocytes # 0.5 (0-1.0) k/uL Eosinophils # 0.1 (0-0.7) k/uL Basophils # 0.0 (0-0.2) k/uL Anisocytosis Slight PT (9.0-12.0) sec INR (<1.1) APTT (22.0-30.0) sec Sodium 141 (137-145) mmol/L Potassium 4.9 (3.5-5.1) mmol/L Chloride 111 H (98-107) mmol/L Carbon Dioxide 26 (22-30) mmol/L Anion Gap 4 mmol/L BUN 51 H (9-20) mg/dL Creatinine 2.20 H (0.66-1.25) mg/dL Est GFR (MDRD) Af Amer 36 (>60 ml/min/1.73 sqM) Est GFR (MDRD) Non-Af 29 (>60 ml/min/1.73 sqM) Glucose 108 H (74-99) mg/dL Plasma Lactic Acid [place] (0.7-2.0) mmol/L Calcium 8.2 L (8.4-10.2) mg/dL Magnesium 1.8 (1.6-2.3) mg/dL Total Bilirubin 0.5 (0.2-1.3) mg/dL AST 29 (17-59) U/L ALT 44 (21-72) U/L Alkaline Phosphatase 103 (38-126) U/L Total Creatine Kinase 39 L (55-170) U/L CK-MB (CK-2) 0.8 (0.0-2.4) ng/mL CK-MB (CK-2) Rel Index 2.1 Troponin I 0.064 H* (0.000-0.034) ng/mL Total Protein 4.7 L (6.3-8.2) g/dL Albumin 2.3 L (3.5-5.0) g/dL Urine Color Urine Appearance (Clear) Urine pH (5.0-8.0) Ur Specific [place] (1.001-1.035) Urine Protein (Negative) Urine Glucose (UA) (Negative) Urine Ketones (Negative) Urine Blood (Negative) Urine Nitrite (Negative) Urine Bilirubin (Negative) Urine Urobilinogen (<2.0) mg/dL Ur Leukocyte Esterase (Negative) Urine WBC (0-5) /hpf Urine Bacteria (None) /hpf Urine Mucus (None) /hpf 09/04/16 09/04/16 09/04/16 Range/Units 14:15 14:15 15:00 WBC (3.8-10.6) k/uL RBC (4.30-5.90) m/uL Hgb (13.0-17.5) gm/dL Hct (39.0-53.0) % MCV (80.0-100.0) fL MCH (25.0-35.0) pg MCHC (31.0-37.0) g/dL RDW (11.5-15.5) % Plt Count (150-450) k/uL Neutrophils % % Lymphocytes % % Monocytes % % Eosinophils % % Basophils % % Neutrophils # (1.3-7.7) k/uL Lymphocytes # (1.0-4.8) k/uL Monocytes # (0-1.0) k/uL Eosinophils # (0-0.7) k/uL Basophils # (0-0.2) k/uL Anisocytosis PT 9.9 (9.0-12.0) sec INR 1.0 (<1.1) APTT 22.2 (22.0-30.0) sec Sodium (137-145) mmol/L Potassium (3.5-5.1) mmol/L Chloride (98-107) mmol/L Carbon Dioxide (22-30) mmol/L Anion Gap mmol/L BUN (9-20) mg/dL Creatinine (0.66-1.25) mg/dL Est GFR (MDRD) Af Amer (>60 ml/min/1.73 sqM) Est GFR (MDRD) Non-Af (>60 ml/min/1.73 sqM) Glucose (74-99) mg/dL Plasma Lactic Acid [place] 1.3 (0.7-2.0) mmol/L Calcium (8.4-10.2) mg/dL Magnesium (1.6-2.3) mg/dL Total Bilirubin (0.2-1.3) mg/dL AST (17-59) U/L ALT (21-72) U/L Alkaline Phosphatase (38-126) U/L Total Creatine Kinase (55-170) U/L CK-MB (CK-2) (0.0-2.4) ng/mL CK-MB (CK-2) Rel Index Troponin I (0.000-0.034) ng/mL Total Protein (6.3-8.2) g/dL Albumin (3.5-5.0) g/dL Urine Color Yellow Urine Appearance Cloudy (Clear) Urine pH 6.0 (5.0-8.0) Ur Specific [place] 1.015 (1.001-1.035) Urine Protein 3+ H (Negative) Urine Glucose (UA) Negative (Negative) Urine Ketones Negative (Negative) Urine Blood Negative (Negative) Urine Nitrite Negative (Negative) Urine Bilirubin Negative (Negative) Urine Urobilinogen <2.0 (<2.0) mg/dL Ur Leukocyte Esterase Negative (Negative) Urine WBC 3 (0-5) /hpf Urine Bacteria Many H (None) /hpf Urine Mucus Rare H (None) /hpf Disposition Clinical Impression: Pulmonary edema, Febrile illness Disposition: ADMITTED IP TO THIS [facility] Time of Disposition: 16:05
[2016-09-04 14:55] LABS: Anisocytosis Slight; Basophils % (A) 0 %; CH 30.7; CHCM 32.2; Eosinophils # (A) 0.1 k/uL (0-0.7); Eosinophils % (A) 1 %; HCT 30.6 % (39.0-53.0); HDW 2.46; HGB 9.8 gm/dL (13.0-17.5); Luc # (Auto) 0.12; Luc % (Auto) 1; Lymphocytes # (A) 0.3 k/uL (1.0-4.8); Lymphocytes % (A) 3 %; MCH 30.6 pg (25.0-35.0); MCV 95.8 fL (80.0-100.0); Mean Platelet Volume 7.5; Monocytes # (A) 0.5 k/uL (0-1.0); Monocytes % (A) 5 %; Neutrophils % (A) 91 %; RDW 16.2 % (11.5-15.5); WBC 11.1 k/uL (3.8-10.6)
[2016-09-04 15:07] LABS: Calcium 8.2 mg/dL (8.4-10.2); Magnesium 1.8 mg/dL (1.6-2.3); Potassium 4.9 mmol/L (3.5-5.1); Total Bilirubin 0.5 mg/dL (0.2-1.3); Total Protein 4.7 g/dL (6.3-8.2)
[2016-09-04 15:20] LABS: Partial Thromboplastin Time 22.2 sec (22.0-30.0); Prothrombin Time 9.9 sec (9.0-12.0)
--- NOTE | 2016-09-04 15:34 | XR ---
EXAMINATION TYPE: XR chest 2V DATE OF EXAM: 09/04/2016 3:27 PM COMPARISON: Chest x-ray August 23, 2016. HISTORY: Fever and shortness of breath. TECHNIQUE: Frontal and lateral views of the chest are obtained. FINDINGS: There is reticular interstitial prominence bilaterally redemonstrated. There are small edward ateral pleural effusions on lateral x-ray presumed right greater than left with blunting of posterior costophrenic angles. The cardiac silhouette size remains enlarged with atherosclerotic and ectatic thoracic aorta. Surgical change lower cervical spine is again seen. No suspicious new focal airspace opacity or pneumothorax is seen bilaterally. IMPRESSION: Suspect background of chronic parenchymal change with acute CHF exacerbation as there is cardiomegaly with small bilateral pleural effusions and mild interstitial edema felt present. No sign ificant change from prior study is seen.
[2016-09-04] MEDS ORDERED: FUROSEMIDE 10 MG/ML 2 ML VIAL IV ONE (15:41)
[2016-09-04 15:54] LABS: Appearance,Urine Cloudy (Clear); Bacteria,Urine Many /hpf; Bilirubin,Urine Negative (Negative); Glucose,Urine (UA) Negative (Negative); Ketones,Urine Negative (Negative); Leukocyte Esterase,Urine Negative (Negative); Mucus,Urine Rare /hpf; Nitrite,Urine Negative (Negative); Particle Count 16272; Protein,Urine 3+ (Negative); Specific Gravity,Urine 1.015 (1.001-1.035); UA Billing (MACRO vs. MICRO) MICRO; Urobilinogen,Urine <2.0 mg/dL (<2.0); WBC,Urine 3 /hpf (0-5)
[2016-09-04 15:55] LABS: Creatine Kinase MB 0.8 ng/mL (0.0-2.4)
[2016-09-04 15:57] LABS: Troponin I 0.064 ng/mL (0.000-0.034)
[2016-09-04] MEDS ORDERED: LEVOFLOXACIN 750MG-D5W PMX 750 MG in DEXTROSE/WATER 1 150ML.BAG IVPB STA (16:07)
[2016-09-04] MEDS ORDERED: VANCOMYCIN 1,750 MG in SODIUM CHLORIDE 0.9% 250 ML IVPB ONE (19:00)
[2016-09-04] MEDS ORDERED: MEROPENEM IVPB ONE (19:50)
[2016-09-04] MEDS ORDERED: SODIUM CHLORIDE 0.9% IVPB ONE (19:50)
[2016-09-04] MEDS ORDERED: TACROLIMUS 1 MG CAP PO SCH (21:00)
[2016-09-04] MEDS ORDERED: IV VANCOMYCIN PER PHARMACY 1 EACH MISC MISCELLANE PRN (22:15)
[2016-09-04] MEDS: SODIUM CHLORIDE 0.9% 1,000 ML IV SCH (22:30)
[2016-09-04] MEDS: NITROGLYCERIN OINT 1 INCH/GM PACKET TOPICAL SCH ×2 (22:30→22:33)
[2016-09-04] MEDS: ATORVASTATIN 40 MG TAB PO SCH (22:31)
[2016-09-04] MEDS: APIXABAN 2.5 MG TABLET PO SCH (22:31)
[2016-09-04] MEDS: FAMOTIDINE 20 MG TAB PO SCH (22:31)
[2016-09-04] MEDS: TAMSULOSIN 0.4 MG CAP.ER.24H PO SCH (22:32)
[2016-09-04] MEDS: GABAPENTIN 300 MG CAP PO SCH (22:32)
--- NOTE | 2016-09-04 22:48 | HP ---
DATE OF ADMISSION: 09/04/2016 The patient is a 76 -year-old ( ) came in as the patient became short of breath and started having diarrhea. The patient has multiple episodes of diarrhea in the past, ( ) for diarrhea and the patient also has CKD Stage IV and diastolic dysfunction as well. Patient is more confused. Started having shortness of breath ( ) at home although the patient denied any significant cough, runny nose. The patient was started on empiric Vancomycin. For ( ) coverage, patient is on cephalosporin. The patient has ALLERGIES TO ( ) which was not started though. The patient ( ) changed to Meropenem until I have further data available, we will obtain ( ). The patient is very ill appearing. The patient chest x-ray ( ) although did not appear she had significant JVD. Probably because of neck contour and I did not hear any S3. The patient has mild 1+ pedal edema nonpitting in nature. Patient denied any cough, runny nose. The patient complaining of multiple episodes of diarrhea. Denied any blood in the stool, denied any dysuria. The patient has multiple other medical problems. Home medications include: 1. Allopurinol. 2. ( ). 3. ( ). 4. Phosphorus supplementation. 5. Ranitidine. 6. Tamsulosin. 7. Propranolol. 8. Tacrolimus. 9. Calcium carbonate. 10. Prednisone. 11. Atorvastatin. 12. [place]-3 fatty acids. 13. Amlodipine. 14. Enalapril. 15. Gabapentin. 16. Apixaban. 17. Aspirin. 18. Potassium chloride. 19. Lasix 40 mg p.o. b.i.d. used to take 80 mg b.i.d. in the past. 20. Imodium. 21. Psyllium. 22. Tramadol. ALLERGIES: ALLERGIC TO ( ) CEPHALEXIN. REVIEW OF SYSTEMS: CONSTITUTIONAL: as described in HPI. HEENT: No recent visual problems or hearing problems. Denied any sore throat. CARDIOVASCULAR: No chest pain, orthopnea, PND, no palpitations, no syncope. PULMONARY: as described in HPI. GASTROINTESTINAL: No diarrhea, no nausea, no vomiting, no abdominal pain. Normoactive bowel sounds. NEUROLOGICAL: No headaches, no weakness, no numbness. HEMATOLOGICAL: Denies any bleeding or petechiae. GENITOURINARY: Denies any burning micturition, frequency, or urgency. MUSCULOSKELETAL/RHEUMATOLOGICAL: Denies any joint pain, swelling, or any muscle pain. ENDOCRINE: Denies any polyuria or polydipsia. The rest of the 14 point review of systems is negative. The patient denied any orthopnea. PAST MEDICAL HISTORY: Significant for psoriatic arthritis, because of which patient is on ( ), the patient is immunosuppressed, hyperlipidemia, hypertension, musculoskeletal disorder, history of nephrotic syndrome, torn rotator cuffs in the past, back surgery, hernia repair, orthopedic surgery, L4, L5 lumbar fusion surgery. SOCIAL HISTORY: Denied any smoking, alcohol abuse or drug abuse. FAMILY HISTORY: Father of burn injuries at work. A work-related accident. Mother age 84 with a heart related problems. Mother also had hypertension, brother had diabetes mellitus and kidney problems. PHYSICAL EXAMINATION: Temperature 101.1, pulse of 115, respiratory rate 20, blood pressure is 149/88, saturating at 93% on 3 liters of oxygen by nasal cannula. The patient apparently on 2 L at home age. GENERAL: Extremely ill appearing, obese, alert and oriented times three, confusion appears to have improved. HEENT: Pupils are round and equally reacting to light. EOMI. No scleral icterus. No conjunctival pallor. Normocephalic, atraumatic. No pharyngeal erythema. No thyromegaly. CARDIOVASCULAR: S1 and S2 tachycardic appears to ( ). PULMONARY: Chest is clear to auscultation, no wheezing or crackles. ABDOMEN: Soft, nontender, nondistended, normoactive bowel sounds. No palpable organomegaly. MUSCULOSKELETAL: No joint swelling or deformity. EXTREMITIES: No cyanosis, clubbing, or pedal edema. NEUROLOGICAL: Gross neurological examination did not reveal any focal deficits. SKIN: No rashes. Patient baseline creatinine appears to be around ( ) from the previous dictation from Dr. Hutchins, WBC count of 7100, platelet count of 226., Chloride of 111, bicarbonate of 26, anion gap of 4, lactic acid is 1.5. Creatinine is 2.2, magnesium 1.8. Chest x-ray did not show any significant amount abnormalities. Troponin minimally elevated 0.64, without any chest pain, without any acute ST-T wave changes. ASSESSMENT AND PLAN: 1. Severe sepsis, the patient is significantly ill appearing. Source of sepsis is not very clear. We will obtain ( ) testing. The patient will be started on broad spectrum antibiotics for now because of as patient appears to be significantly ill but ( ) diarrhea. 2. Chronic kidney disease stage IV, patient has component of acute renal failure, probably due to acute tubular necrosis and prerenal azotemia. The patient will be continued on IV fluids and consult nephrology. 3. Not sure why the patient is on ( ) atrial fibrillation, presently not rate controlled but ( ) at this point of time. Will continue his rate control medications and discontinue the rest of the antihypertensive medications. 4. Hypertension. 5. Hyperlipidemia. 6. The patient in the past had chronic diarrhea. Patient started having diarrhea again, we will obtain Clostridium difficile testing. 7. Patient is morbidly obese. Counseling was provided regarding that. 8. The patient apparently has ( ) from previous dictation, although the patient ( ) suspicion is low for that and the patient I believe with IV fluids, will need to closely monitor him. If he ends up having pulmonary edema at that time patient may need to be intubated and still need fluid resuscitation and after that, once his sepsis improves, then probably we can get rid of the fluid. Discussed his CODE STATUS, he did remain as FULL CODE for now. If that happens, if the patient gets CODED, patient's who would make the decision for him would need to be called.
[2016-09-05] MEDS ORDERED: FUROSEMIDE 10 MG/ML 2 ML VIAL IV SCH
[2016-09-05] MEDS ORDERED: MEROPENEM 1 GM in SODIUM CHLORIDE 0.9% 100 ML IVPB SCH ×2
[2016-09-05] MEDS: CHERRY FLAVOR 60 ML BOTTLE PO SCH ×5 (01:20→23:32)
[2016-09-05] MEDS: VANCOMYCIN ORAL SOLUTION 250 MG/5 ML BOTTLE PO SCH ×5 (01:20→23:33)
[2016-09-05] MEDS ORDERED: LOPERAMIDE 2 MG CAP PO PRN (01:36)
[2016-09-05 08:37] LABS: Anisocytosis Slight; CH 30.7; CHCM 32.6; HCT 26.3 % (39.0-53.0); HDW 2.57; HGB 8.7 gm/dL (13.0-17.5); MCH 31.4 pg (25.0-35.0); MCHC 33.1 g/dL (31.0-37.0); MCV 94.8 fL (80.0-100.0); Mean Platelet Volume 8.3; RBC 2.77 m/uL (4.30-5.90); RDW 16.2 % (11.5-15.5); WBC 5.5 k/uL (3.8-10.6)
[2016-09-05] MEDS ORDERED: TACROLIMUS 1 MG CAP PO SCH (09:00)
[2016-09-05] MEDS: FAMOTIDINE 20 MG TAB PO SCH ×2 (09:15→23:31)
[2016-09-05] MEDS: TAMSULOSIN 0.4 MG CAP.ER.24H PO SCH ×2 (09:15→23:31)
[2016-09-05] MEDS: APIXABAN 2.5 MG TABLET PO SCH ×2 (09:15→23:31)
[2016-09-05] MEDS: ASPIRIN 81 MG CHEW PO SCH (09:16)
[2016-09-05] MEDS: NITROGLYCERIN OINT 1 INCH/GM PACKET TOPICAL SCH ×4 (09:21→23:32)
--- NOTE | 2016-09-05 10:16 | P.NPCON ---
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 He was recently admitted with C. diff colitis and a computed tomography scan the time had suggested colitis. and discharged. He came back with diarrhea and weakness and tiredness some fever and confusion. Currently he is awake and alert but profoundly weak could not even sit up. States he was not as weak as this before. Diarrhea continues. No nausea vomiting. No abdominal pain. No cough shortness of breath dysphagic. No dysuria or frequency. His edema is worse recently and this has now affected his arms as well. His creatinine has ranged between 1.5-1.54 the last 1 year. He has 3+ proteinuria currently. His creatinine is 2.2 on this admission up from 1.6 on 08/29/2016. He is known with sclerotic arthritis, nephrotic syndrome, and has had recent lumbar fusion surgery. He is and lives with his at home. Past Medical History Past Medical History: Cancer, Hearing Disorder / Deafness, Hyperlipidemia, Hypertension, Musculoskeletal Disorder, Renal Disease Additional Past Medical History / Comment(s): HX SKIN CA. psoriatic arthritis. nephrotic syndrome. chronic back pain. DENIES GOUT. PAST HX OF MIGRAINES. HX iron infusion. patient states he is pre-diabetic. EDEMA PETROS LOWER LEGS, ANKLES.petros torn rotator cuffs(had a previous sx on rt side but injured it again) History of Any Multi-Drug Resistant Organisms: None Reported Past Surgical History: Back Surgery, Hernia Repair, Orthopedic Surgery Additional Past Surgical History / Comment(s): L4-5 LUMBAR FUSION-(total of 4 back surguries)NECK FUSION. RT ROTATOR CUFF," kidney bx-neg". Surgical scar from skin cancer/surgery on right side of head. MULT PAIN PROC, LAST 05/12/16. Past Anesthesia/Blood Transfusion Reactions: No Reported Reaction Past Psychological History: No Psychological Hx Reported Additional Psychological History / Comment(s): lives in the family home with his and 2 pet dogs., no steps into home. 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 No experience. No international travel. No animal exposures. No ill contacts. has a glucometer and bp machine Smoking Status: Never smoker Past Alcohol Use History: None Reported Past Drug Use History: None Reported - Past Family History Father Additional Family Medical History / Comment(s): as a results of burn injuries in work related accident Mother Additional Family Medical History / Comment(s): at age 84 from heart problems Sister(s) Family Medical History: Cancer Additional Family Medical History / Comment(s): mother-- HTN. brother-- Diabetes, kidney problems Medications and Allergies Home Medications Medication Instructions Recorded Confirmed Type Allopurinol [Zyloprim] 200 mg PO DAILY 01/16/14 09/04/16 History Ergocalciferol [Vitamin D2 50,000 units PO DEAL 01/16/14 09/04/16 History (DRISDOL)] Leflunomide [Arava] 20 mg PO AC-LUNCH 01/16/14 09/04/16 History Phosphorus #1 [Phospha 250 Neutral 250 mg PO BID 01/16/14 09/04/16 History Tablet] Ranitidine HCl [Zantac] 150 mg PO BID 01/16/14 09/04/16 History Tamsulosin HCl [Flomax] 0.4 mg PO BID 01/16/14 09/04/16 History Propranolol LA [Inderal LA] 60 mg PO AC-LUNCH 12/17/14 09/04/16 History Tacrolimus [Prograf] 2 mg PO DAILY 03/27/15 09/04/16 History Calcium Carbonate [Calcium] 600 mg PO DAILY 03/25/16 09/04/16 History predniSONE 10 mg PO DAILY 03/25/16 09/04/16 History Atorvastatin [Lipitor] 40 mg PO HS 04/18/16 09/04/16 History [place]-3 Fatty Acids/Fish Oil [Fish 1 cap PO DAILY 04/18/16 09/04/16 History Oil 1,000 mg Softgel] Tacrolimus [Prograf] 1 mg PO HS 08/19/16 09/04/16 History amLODIPine [Norvasc] 2.5 mg PO DAILY 08/19/16 09/04/16 History Enalapril Maleate [Vasotec] 20 mg PO DAILY 09/04/16 09/04/16 History Gabapentin [Neurontin] 600 mg PO BID@1600,2200 09/04/16 09/04/16 History Allergies Allergy/AdvReac Type Severity Reaction Status Date / Time sumatriptan [From Imitrex] Allergy Swelling Verified 09/04/16 14:09 sumatriptan succinate Allergy Swelling Verified 09/04/16 14:09 [From Imitrex] cephalexin [From Keflex] AdvReac Diarrhea Verified 09/04/16 14:09 Physical Exam Vitals: Vital Signs Temp Pulse Pulse Pulse Resp BP BP 09/05/16 09:25 98.2 F 120 H 84 18 110/73 09/05/16 04:00 97.6 F 120 H 100 24 115/54 09/05/16 00:00 97.0 F L 120 H 120 H 24 116/63 09/04/16 20:00 96.8 F L 108 H 108 H 24 99/46 09/04/16 18:20 92/58 09/04/16 16:50 97.4 F L 106 H 16 99/52 09/04/16 16:37 100.0 F H 107 H 22 96/62 Pulse Ox 09/05/16 09:25 92 L 09/05/16 04:00 92 L 09/05/16 00:00 92 L 09/04/16 20:00 90 L 09/04/16 18:20 09/04/16 16:50 98 09/04/16 16:37 97 Intake and Output 09/04/16 09/05/16 09/05/16 22:59 06:59 14:59 Intake Total 200 525 Balance 200 525 Intake: IV 525 Sodium Chloride 0.9% 1, 525 000 ml @ 70 mls/hr IV . [id number] [facility] Rx#:[id number] Amount of Fluid Infused ( 200 ml) Other: Voiding Method Diaper Diaper Diaper # Voids 1 2 Weight 103.419 kg 100 kg On examination is sleepy but arousable and answers questions appropriately. He is profoundly weak. HEENT exam no JVP neck is supple no facial asymmetry There is no oral lesions evident. Pupils are equal and normal. Lungs are to auscultation percussion with air entry less than optimal as he was profoundly weak and had difficulty sitting up. No dullness to percussion. Heart sounds are unremarkable for any murmur rub gallop or area abdomen is soft nontender no organomegaly status masses noted Extremity exam was thinning of skin with bruises Over his arms and 2-3+ edema. Neurologically awake alert moves all his extremities but profoundly weak. Results - Lab Results Most recent lab results Calcium 8.2 mg/dL (8.4-10.2) L 09/04/16 14:15 Magnesium 1.8 mg/dL (1.6-2.3) 09/04/16 14:15 09/05/16 08:25 09/04/16 14:15 Assessment and Plan Plan: Impression. 1. Acute kidney injury secondary to volume depletion from C. diff colitis and sepsis with creatinine going up to 2.2 from a baseline of approximately 1.5 mg to 1.7 kg over the last 1 year. 2. Chronic kidney disease, biopsy-proven FSGS on chronic immunosuppression with prednisone Prograf and additionally with leflunomide. 3. Chronic edema worse, secondary to combination off about. 4. C. diff colitis recurrent, on immunosuppressive medications. 5. Profound weakness. 6. Possible arrhythmias Recommendation. 1. Continue IV normal saline for right now, currently on 70 mL an hour, will increase to 200 mL an hour. Continue urine output and creatinine started to improve. 2. Will hold off Prograf to improve his immunosuppressive state and maintain the prednisone at 10 mg a day. 3. Check urine protein to creatinine ratio to quantify his proteinuria. 4. Reassess the need for Prograf with office records of the effectiveness of this as his states that supposedly there was some question of withdrawing this in any case. 5. Avoid nephrotoxic. 6. Monitor labs for right now on a daily basis, add a phosphorus level to the labs drawn this morning. Thank you for this consultation will continue to follow
--- NOTE | 2016-09-05 10:58 | P.CRDCN ---
History of Present Illness Consult date: 09/05/16 Chief complaint: diarrhea History of present illness: this is a pleasant 76-year-old male patient with a past medical history significant for chronic atrial fibrillation who was brought to the hospital by his because of CVA or diarrhea. The patient just was discharged from the hospital a few days ago after he was admitted with diarrhea and the workup was negative for C. diff at that point. He started experiencing severe diarrhea again but this time it was associated with fever and chills and the patient also was severity week. The workup at this time came in to be positive for C. diff and the patient was admitted to the hospital and he is currently on isolation. We get involved in the care of the patient because the chest x-ray showed findings consistent was congestive heart failure. The BNP also came in to be elevated. Please note that the patient has psoriatic arthritis and also he has nephrotic syndrome and he has chronic kidney disease. On physical examination he does not look in overt congestive heart failure. He has severe bilateral lower extremities edema. The lower extremities edema and bilateral pleural effusion are likely secondary to third spacing and hypoalbuminemia. The creatinine seems to be worse compared to before. From the cardiac vascular standpoint overview, I will continue the current medical treatment including IV fluids. I would hold any kind of diuretics at this point. The patient doesn't seems in any overt congestive heart failure. He seems to be very dry. The last echocardiogram was performed within the last year showed normal LV function without any significant valvular abnormalities. The patient is in chronic A. fib with controlled heart rate and he is on anticoagulation with Eliquis. Past Medical History Past Medical History: Cancer, Hearing Disorder / Deafness, Hyperlipidemia, Hypertension, Musculoskeletal Disorder, Renal Disease Additional Past Medical History / Comment(s): HX SKIN CA. psoriatic arthritis. nephrotic syndrome. chronic back pain. DENIES GOUT. PAST HX OF MIGRAINES. HX iron infusion. patient states he is pre-diabetic. EDEMA PETROS LOWER LEGS, ANKLES.petros torn rotator cuffs(had a previous sx on rt side but injured it again) History of Any Multi-Drug Resistant Organisms: None Reported Past Surgical History: Back Surgery, Hernia Repair, Orthopedic Surgery Additional Past Surgical History / Comment(s): L4-5 LUMBAR FUSION-(total of 4 back surguries)NECK FUSION. RT ROTATOR CUFF," kidney bx-neg". Surgical scar from skin cancer/surgery on right side of head. MULT PAIN PROC, LAST 05/12/16. Past Anesthesia/Blood Transfusion Reactions: No Reported Reaction Past Psychological History: No Psychological Hx Reported Additional Psychological History / Comment(s): lives in the family home with his and 2 pet dogs., no steps into home. 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 No experience. No international travel. No animal exposures. No ill contacts. has a glucometer and bp machine Smoking Status: Never smoker Past Alcohol Use History: None Reported Past Drug Use History: None Reported - Past Family History Father Additional Family Medical History / Comment(s): as a results of burn injuries in work related accident Mother Additional Family Medical History / Comment(s): at age 84 from heart problems Sister(s) Family Medical History: Cancer Additional Family Medical History / Comment(s): mother-- HTN. brother-- Diabetes, kidney problems Medications and Allergies Home Medications Medication Instructions Recorded Confirmed Type Allopurinol [Zyloprim] 200 mg PO DAILY 01/16/14 09/04/16 History Ergocalciferol [Vitamin D2 50,000 units PO DEAL 01/16/14 09/04/16 History (DRISDOL)] Leflunomide [Arava] 20 mg PO AC-LUNCH 01/16/14 09/04/16 History Phosphorus #1 [Phospha 250 Neutral 250 mg PO BID 01/16/14 09/04/16 History Tablet] Ranitidine HCl [Zantac] 150 mg PO BID 01/16/14 09/04/16 History Tamsulosin HCl [Flomax] 0.4 mg PO BID 01/16/14 09/04/16 History Propranolol LA [Inderal LA] 60 mg PO AC-LUNCH 12/17/14 09/04/16 History Tacrolimus [Prograf] 2 mg PO DAILY 03/27/15 09/04/16 History Calcium Carbonate [Calcium] 600 mg PO DAILY 03/25/16 09/04/16 History predniSONE 10 mg PO DAILY 03/25/16 09/04/16 History Atorvastatin [Lipitor] 40 mg PO HS 04/18/16 09/04/16 History [place]-3 Fatty Acids/Fish Oil [Fish 1 cap PO DAILY 04/18/16 09/04/16 History Oil 1,000 mg Softgel] Tacrolimus [Prograf] 1 mg PO HS 08/19/16 09/04/16 History amLODIPine [Norvasc] 2.5 mg PO DAILY 08/19/16 09/04/16 History Enalapril Maleate [Vasotec] 20 mg PO DAILY 09/04/16 09/04/16 History Gabapentin [Neurontin] 600 mg PO BID@1600,2200 09/04/16 09/04/16 History Allergies Allergy/AdvReac Type Severity Reaction Status Date / Time sumatriptan [From Imitrex] Allergy Swelling Verified 09/04/16 14:09 sumatriptan succinate Allergy Swelling Verified 09/04/16 14:09 [From Imitrex] cephalexin [From Keflex] AdvReac Diarrhea Verified 09/04/16 14:09 Physical Exam Vitals: Vital Signs Temp Pulse Pulse Pulse Resp BP BP 09/05/16 09:25 98.2 F 120 H 84 18 110/73 09/05/16 04:00 97.6 F 120 H 100 24 115/54 09/05/16 00:00 97.0 F L 120 H 120 H 24 116/63 09/04/16 20:00 96.8 F L 108 H 108 H 24 99/46 09/04/16 18:20 92/58 09/04/16 16:50 97.4 F L 106 H 16 99/52 09/04/16 16:37 100.0 F H 107 H 22 96/62 Pulse Ox 09/05/16 09:25 92 L 09/05/16 04:00 92 L 09/05/16 00:00 92 L 09/04/16 20:00 90 L 09/04/16 18:20 09/04/16 16:50 98 09/04/16 16:37 97 Intake and Output 09/04/16 09/05/16 09/05/16 22:59 06:59 14:59 Intake Total 200 525 Balance 200 525 Intake: IV 525 Sodium Chloride 0.9% 1, 525 000 ml @ 70 mls/hr IV . [id number] [facility] Rx#:[id number] Amount of Fluid Infused ( 200 ml) Other: Voiding Method Diaper Diaper Diaper # Voids 1 2 Weight 103.419 kg 100 kg - Constitutional General appearance: mild distress - Respiratory Respiratory: bilateral: diminished - Cardiovascular Rhythm: irregularly irregular Results 09/05/16 08:25 09/04/16 14:15 CBC 09/05/16 Range/Units 08:25 WBC 5.5 (3.8-10.6) k/uL RBC 2.77 L (4.30-5.90) m/uL Hgb 8.7 L (13.0-17.5) gm/dL Hct 26.3 L (39.0-53.0) % Plt Count 140 L (150-450) k/uL Current Medications Generic Name Dose Route Start Last Admin Trade Name Freq PRN Reason Stop Dose Admin Apixaban 2.5 mg 09/04/16 21:00 09/05/16 09:15 Eliquis PO 2.5 mg BID NEW Administration Aspirin 81 mg 09/05/16 09:00 09/05/16 09:16 Aspirin PO 81 mg DAILY NEW Administration Atorvastatin Calcium 40 mg 09/04/16 21:00 09/04/16 22:31 Lipitor PO 40 mg HS NEW Administration Calcium Carbonate/Glycine 500 mg 09/05/16 09:00 Tums PO DAILY NEW [place] Syrup 5 ml 09/05/16 00:00 09/05/16 06:25 Daigle Syrup PO 5 ml Q6HR NEW Administration Ergocalciferol 50,000 unit 09/05/16 12:00 Vitamin D2 PO DEAL NEW Famotidine 20 mg 09/04/16 21:00 09/05/16 09:15 Pepcid PO 20 mg BID NEW Administration Gabapentin 600 mg 09/04/16 22:00 09/04/16 22:32 Neurontin PO 600 mg BID@1600,2200 NEW Administration Sodium Chloride 1,000 mls @ 70 mls/hr 09/04/16 19:15 09/04/16 22:30 Saline 0.9% IV 70 mls/hr .[id number] NEW Administration Vancomycin HCl 1,500 mg/ 250 mls @ 125 mls/hr 09/05/16 12:00 Sodium Chloride IVPB 09/05/16 13:59 ONCE ONE Leflunomide 20 mg 09/05/16 12:30 Arava PO AC-LUNCH NEW Loperamide HCl 2 mg 09/05/16 01:36 Imodium PO QID PRN Diarrhea Miscellaneous Information 1 each 09/04/16 22:15 Pharmacy To Dose Iv Vancomycin MISCELLANE DIRECTED PRN Per Protocol Nitroglycerin 1 inch 09/04/16 18:00 09/05/16 09:21 Nitro-Bid Oint TOPICAL Not Given QID [facility] Prednisone 10 mg 09/05/16 09:00 PO DAILY [facility] Propranolol HCl 60 mg 09/05/16 12:30 Inderal La PO AC-LUNCH [facility] Tamsulosin HCl 0.4 mg 09/04/16 21:00 09/05/16 09:15 Flomax PO 0.4 mg BID NEW Administration Tramadol HCl 50 mg 09/04/16 18:35 Ultram PO Q6H PRN Moderate Pain Vancomycin HCl 250 mg 09/05/16 00:00 09/05/16 06:25 Vancomycin Oral Solution PO 250 mg Q6HR NEW Administration Intake and Output 09/04/16 09/05/16 09/05/16 22:59 06:59 14:59 Intake Total 200 525 Balance 200 525 Intake: IV 525 Sodium Chloride 0.9% 1, 525 000 ml @ 70 mls/hr IV . [id number] [facility] Rx#:[id number] Amount of Fluid Infused ( 200 ml) Other: Voiding Method Diaper Diaper Diaper # Voids 1 2 Weight 103.419 kg 100 kg 09/05/16 08:25 Assessment and Plan Plan: assessment #1 C. diff diarrhea #2 dehydration secondary to the above #3 mild change in mental status secondary to above #4 weakness also secondary to the dehydration #5 acute on chronic renal failure secondary to volume depletion #6 chronic A. fib with controlled heart rate #7 multiple comorbid conditions Plan #1 the heart rate seems to be controlled #2 the patient is on anticoagulation and we will continue that #3 from the cardiovascular standpoint overview, I would continue the current medical treatment #4 the patient doesn't seems to be in overt congestive heart failure
[2016-09-05] MEDS: SODIUM CHLORIDE 0.9% 1,000 ML IV SCH ×2 (11:55→23:31)
[2016-09-05] MEDS ORDERED: ERGOCALCIFEROL 50,000 UNIT CAP PO SCH (12:00)
[2016-09-05] MEDS ORDERED: VANCOMYCIN 1,500 MG in SODIUM CHLORIDE 0.9% 250 ML IVPB ONE (12:00)
[2016-09-05] MEDS: predniSONE 10 MG TAB PO SCH (12:01)
[2016-09-05] MEDS: LEFLUNOMIDE 20 MG TAB PO SCH (12:01)
[2016-09-05] MEDS: PROPRANOLOL LA 60 MG CAP.SA.24H PO SCH (12:01)
[2016-09-05] MEDS: CALCIUM CARBONATE 500 MG CHEWABLE PO SCH (12:02)
[2016-09-05 12:34] LABS: Calcium 7.4 mg/dL (8.4-10.2); Potassium 4.9 mmol/L (3.5-5.1)
--- NOTE | 2016-09-05 15:57 | PN ---
Patient is with severe sepsis and now source of sepsis was found to be Clostridium difficile colitis and all the antibiotics were discontinued. The patient was started on oral vancomycin. Patient is still tachycardic and worsening kidney function. Worsening kidney function is secondary to Lasix he received yesterday. Also because of the continued diarrhea, although we are hydrating gently and cautiously, the patient is still on the way to volume depletion. Because of which I will increase the fluids a little bit to 100 mL an hour, although there are concerns of pulmonary edema definitely. Patient has focal segment of glomerulonephritis apparently for which patient is on chronic immunosuppression with prednisone and Prograf and leflunomide. Patient is also immunosuppressed because of his medications. REVIEW OF SYSTEMS: CARDIOVASCULAR: No chest pain, no orthopnea, no PND, no palpitations. PULMONARY: Denied any shortness of breath. No cough or hemoptysis. GASTROINTESTINAL: No diarrhea, nausea or vomiting. No abdominal pain. Normoactive bowel sounds. NEUROLOGIC: No headaches, no weakness, no numbness. GENERAL: Patient is feeling much better today. Patient continues to have diarrhea. No significant abdominal pain. Medications were reviewed. Medication changes as mentioned in the interval history. PHYSICAL EXAMINATION: VITAL SIGNS: Temperature 92.6, pulse of 120, respiratory rate of 16, blood pressure is 92/55, saturating on 95% on 2 liters of oxygen by nasal cannula. GENERAL: Morbidly obese. Alert and oriented x3, present. HEENT: Pupils are round and equally reacting to light. EOMI. No scleral icterus. No conjunctival pallor. Normocephalic, atraumatic. No pharyngeal erythema. No thyromegaly. CARDIOVASCULAR: S1 and S2 present. Tachycardic. No murmurs, rubs, or gallops. PULMONARY: Chest is clear to auscultation, no wheezing or crackles. ABDOMEN: Soft, nontender, nondistended, normoactive bowel sounds. No palpable organomegaly. MUSCULOSKELETAL: No joint swelling or deformity. EXTREMITIES: No cyanosis, clubbing, or pedal edema. NEUROLOGICAL: Gross neurological examination did not reveal any focal deficits. SKIN: No rashes. LABORATORY DATA: CBC, basic metabolic profile are abnormal for elevated BUN and creatinine of 59 and 2.7; minimally worsening compared to yesterday. One set of troponins is positive which is secondary to CKD and Cardiology evaluated the patient. ASSESSMENT AND PLAN: 1. Severe sepsis secondary to Clostridium difficile colitis on oral vancomycin as mentioned above. 2. Acute renal failure secondary to severe intravascular volume depletion. IV fluids as mentioned above and secondary to diarrhea and also diuretic therapy he received. 3. CKD stage III secondary to focal segment of glomerulonephritis for which patient is on chronic immunosuppressive therapy. 4. Hypertension. 5. Hyperlipidemia. 6. The patient also has a component of ( ) for which we will need to follow with Dr. Jeff as an outpatient. 7. Morbid obesity.
[2016-09-05] MEDS ORDERED: LEVOFLOXACIN 750MG-D5W PMX 750 MG in DEXTROSE/WATER 1 150ML.BAG IVPB SCH (16:00)
[2016-09-05] MEDS: GABAPENTIN 300 MG CAP PO SCH ×2 (17:22→23:31)
[2016-09-05] MEDS: ATORVASTATIN 40 MG TAB PO SCH (23:31)
[2016-09-06] MEDS: CHERRY FLAVOR 60 ML BOTTLE PO SCH ×4 (06:24→23:15)
[2016-09-06] MEDS: VANCOMYCIN ORAL SOLUTION 250 MG/5 ML BOTTLE PO SCH ×4 (06:25→23:15)
[2016-09-06 07:38] LABS: Calcium 7.5 mg/dL (8.4-10.2); Potassium 4.5 mmol/L (3.5-5.1)
[2016-09-06] MEDS: TAMSULOSIN 0.4 MG CAP.ER.24H PO SCH ×2 (08:53→21:40)
[2016-09-06] MEDS: ASPIRIN 81 MG CHEW PO SCH (08:53)
[2016-09-06] MEDS: CALCIUM CARBONATE 500 MG CHEWABLE PO SCH (08:53)
[2016-09-06] MEDS: NITROGLYCERIN OINT 1 INCH/GM PACKET TOPICAL SCH ×4 (08:54→21:41)
[2016-09-06] MEDS: APIXABAN 2.5 MG TABLET PO SCH ×2 (08:54→21:40)
[2016-09-06] MEDS: FAMOTIDINE 20 MG TAB PO SCH (08:54)
[2016-09-06] MEDS: predniSONE 10 MG TAB PO SCH (08:54)
--- NOTE | 2016-09-06 10:58 | PN ---
Patient is seen for followup for CKD and acute kidney injury. He was admitted to the hospital with C. diff colitis, ongoing diarrhea and increased weakness. C. diff toxin is now positive. He continues to have diarrhea. Patient's Prograf is on hold to help him recover from this acute infection. He remains on prednisone at 10 mg daily; however. On examination today, blood pressure is 129/63, heart rate 120 per minute. He is afebrile. Examination of the heart S1 and S2. Examination of the lungs, bilateral breath sounds are heard. Abdomen is soft, obese, nontender. Examination of the lower extremities shows edema 2+ bilaterally, upper and lower extremities. Deformities are noted in the hand. Labs show sodium 136, potassium 4.5, BUN 64, serum creatinine 3.0, hemoglobin 8.7 g/dL. UA shows 3+ protein, C. diff toxin was positive. ASSESSMENT: 1. Acute kidney injury associated with Clostridium difficile colitis, mainly acute tubular necrosis, currently nonoliguric. Continue to avoid nephrotoxic agents. Expect improvement in renal function with improvement in overall general condition. Currently, patient is not on any nephrotoxic medications. 2. Chronic kidney disease secondary to FSGS, maintained on Prograf as outpatient and prednisone, currently off of Prograf to help recover from infection. 3. Psoriatic arthritis, maintained on Leflunomide. 4. Clostridium difficile colitis, maintained on oral vancomycin. Recommend Infectious Disease consultation. I will also start Lactinex. PLAN: Start probiotics, continue oral vancomycin. Recommend Infectious Disease consult and repeat labs in a.m. May continue with the fluids, encourage increase oral intake. I will decrease the fluids by tomorrow, if the patient's oral intake is maintained.
[2016-09-06] MEDS: SODIUM CHLORIDE 0.9% 1,000 ML IV SCH ×2 (12:00→21:41)
[2016-09-06] MEDS: PROPRANOLOL LA 60 MG CAP.SA.24H PO SCH (12:03)
[2016-09-06] MEDS: LACTOBACILLUS ACIDOPH & BULGAR 1 EACH PACKET PO SCH ×2 (12:03→18:08)
[2016-09-06] MEDS: LEFLUNOMIDE 20 MG TAB PO SCH (12:04)
[2016-09-06 14:15] VITALS: BMI 35.3
[2016-09-06] MEDS: GABAPENTIN 300 MG CAP PO SCH ×2 (15:18→21:40)
--- NOTE | 2016-09-06 16:49 | PN ---
Patient is admitted with severe sepsis secondary to C difficile colitis and patient is on oral vancomycin. His diarrhea is improving at this point of time. Patient's kidney function has worsened, though, as we are unable to keep up with the fluid loss. Nephrology is evaluating the patient. Patient is at present getting 100 mL of normal saline. REVIEW OF SYSTEMS: CARDIOVASCULAR: No chest pain, no orthopnea, no PND, no palpitations. PULMONARY: Denied any shortness of breath. No cough or hemoptysis. GASTROINTESTINAL: As described in HPI. NEUROLOGIC: No headaches, no weakness, no numbness. Medications are reviewed. PHYSICAL EXAMINATION: VITAL SIGNS: Temperature 97.8, pulse of 120, respiratory rate of 16. Blood pressure is 131/72. GENERAL: Patient looks much better compared to a couple days ago; not in apparent respiratory distress. HEENT: Pupils are round and equally reacting to light. EOMI. No scleral icterus. No conjunctival pallor. Normocephalic, atraumatic. No pharyngeal erythema. No thyromegaly. CARDIOVASCULAR: S1 and S2 present. No murmurs, rubs, or gallops. PULMONARY: Chest is clear to auscultation, no wheezing or crackles. ABDOMEN: Soft, nontender, nondistended, normoactive bowel sounds. No palpable organomegaly. MUSCULOSKELETAL: No joint swelling or deformity. EXTREMITIES: Patient does have some chronic edema in bilateral lower limbs. NEUROLOGICAL: Gross neurological examination did not reveal any focal deficits. SKIN: No rashes. LABORATORY DATA: CBC, CMP are abnormal for low sodium of 136, hypovolemic hyponatremia. Leukocytosis resolved. Hyperchloremia due to IV fluids. Low bicarbonate due to IV fluids. Uremia. Worsening kidney function. Elevated phosphorous secondary to worsening kidney function. ASSESSMENT AND PLAN: 1. Severe sepsis secondary to Clostridium difficile colitis, which is improving. 2. Acute renal failure secondary to severe intravascular depletion. Continue with IV fluids and repeat kidney function and electrolytes tomorrow. 3. Chronic kidney disease, stage III, secondary to focal segmental glomerulosclerosis. 4. Hypertension. 5. Hyperlipidemia. 6. Patient does have a component of chronic diarrhea, for which patient will need to follow up with Dr. Jeff as an outpatient. 7. Morbid obesity.
[2016-09-06] MEDS: ATORVASTATIN 40 MG TAB PO SCH (21:40)
[2016-09-07] MEDS: CHERRY FLAVOR 60 ML BOTTLE PO SCH ×3 (06:25→17:52)
[2016-09-07] MEDS: VANCOMYCIN ORAL SOLUTION 250 MG/5 ML BOTTLE PO SCH ×3 (06:25→17:52)
[2016-09-07] MEDS: APIXABAN 2.5 MG TABLET PO SCH ×2 (07:50→22:14)
[2016-09-07] MEDS: LACTOBACILLUS ACIDOPH & BULGAR 1 EACH PACKET PO SCH ×3 (07:50→16:01)
[2016-09-07] MEDS: predniSONE 10 MG TAB PO SCH (07:51)
[2016-09-07] MEDS: ASPIRIN 81 MG CHEW PO SCH (07:51)
[2016-09-07] MEDS: CALCIUM CARBONATE 500 MG CHEWABLE PO SCH (07:51)
[2016-09-07] MEDS: FAMOTIDINE 20 MG TAB PO SCH (07:51)
[2016-09-07] MEDS: TAMSULOSIN 0.4 MG CAP.ER.24H PO SCH ×2 (07:51→22:14)
[2016-09-07] MEDS: NITROGLYCERIN OINT 1 INCH/GM PACKET TOPICAL SCH ×4 (07:52→22:14)
[2016-09-07] MEDS: SODIUM CHLORIDE 0.9% 1,000 ML IV SCH (07:56)
[2016-09-07 09:47] LABS: Calcium 7.8 mg/dL (8.4-10.2); Potassium 4.3 mmol/L (3.5-5.1)
[2016-09-07] MEDS: LEFLUNOMIDE 20 MG TAB PO SCH (12:28)
[2016-09-07] MEDS: PROPRANOLOL LA 60 MG CAP.SA.24H PO SCH (12:28)
[2016-09-07] MEDS: GABAPENTIN 300 MG CAP PO SCH ×2 (16:01→22:14)
[2016-09-07] MEDS ORDERED: FUROSEMIDE 10 MG/ML 4 ML VIAL IV STA (17:37)
--- NOTE | 2016-09-07 18:14 | P.PN ---
Subjective Date of service 09/07/2016. Progress note being dictated for Dr. Hood. Interval history: This is a 76-year-old gentleman admitted with recurrent C. difficile colitis, renal failure, UTI with enterococcus faecalis. Sweeping edema of extremities and multiple other medical issues. Hyperchloremia, Bicarb 20, IV fluid hydration of 0.9% saline decreased to 50 MLS an hour. Continues on oral vancomycin. Renal function improving. Significant other reports, this is patient's third bout of C. diff within 1 year. Continues to have significant diarrhea, with 2 events earlier this morning. Infectious disease consulted. Objective - Vital Signs Vital signs: Vital Signs Temp 97.3 F L 09/07/16 15:00 Pulse 84 09/07/16 15:00 Resp 22 09/07/16 15:00 BP 158/91 09/07/16 15:00 Pulse Ox 96 09/07/16 15:00 Intake & Output 09/06/16 09/07/16 09/07/16 18:59 06:59 18:59 Intake Total 416 600 600 Balance 416 600 600 Weight 90.5 kg Intake: Intake, IV Titration 400 Amount Sodium Chloride 0.9% 1, 400 000 ml @ 100 mls/hr IV . Q10H NEW Rx#:[id number] Oral 416 600 200 Other: Voiding Method Diaper Diaper Diaper Incontinent Incontinent # Voids 1 2 # Bowel Movements 1 1 - Exam PHYSICAL EXAM: VITAL SIGNS: [As above] GENERAL: [Sitting up in chair, no acute distress] HEENT: [Pupils equal conjunctiva normal.] NECK: [Supple, no JVD] RESPIRATORY EFFORT: Normal LUNGS: [Clear to auscultation, no wheezes, rhonchi or crackles] CARDIOVASCULAR[regular S1 and S2, no murmurs rubs or gallops, positive edema] GI: [Abdomen soft, nontender, positive bowel sounds.] PSYCH: [Alert and oriented -3, mood and affect normal.] SKIN: [Weeping edema of all 4 extremities] NEURO: [Gross neurological examination did not reveal any focal deficits, significant generalized weakness] - Labs CBC & Chem 7: 09/05/16 08:25 09/07/16 09:02 Labs: Abnormal Lab Results - Last 24 Hours (Table) 09/07/16 Range/Units 09:02 Chloride 112 H (98-107) mmol/L Carbon Dioxide 20 L (22-30) mmol/L BUN 62 H (9-20) mg/dL Creatinine 2.65 H (0.66-1.25) mg/dL Glucose 142 H (74-99) mg/dL Calcium 7.8 L (8.4-10.2) mg/dL Assessment and Plan Plan: 1. Severe sepsis secondary to recurrent C. difficile colitis, third episode within a year and UTI. 2. [Acute renal failure secondary to severe intravascular depletion]. 3. 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 4. [Hypertension]. 5. [Hyperlipidemia]. 6. [Component of chronic diarrhea with outpatient GI follow-up recommended]. 7. [Morbid obesity, BMI 35.3]. 8. Psoriatic arthritis on Leflunomide. 9. Acute UTI with enterococcus faecalis Plan: Continue on current medication regime, Lactinex, oral vancomycin, monitoring and symptomatic treatment. Infectious disease consulted with recommendations pending. Plan a care discussed at bedside with both patient and significant other, verbalized understanding of and agreement with plan. Close monitoring of renal function, electrolytes with repeat labs ordered for a.m. follow closely with nephrology. PT/OT. Prognosis guarded. The impression and plan of care has been dictated as directed. : I performed a H&P examination of this patient and discussed the same with the dictator. I agree with the dictator's note. Any additional findings/opinions/ etc. will be noted.
[2016-09-07] MEDS: CHOLESTYRAMINE (WITH SUGAR) 4 GM PACKET PO SCH (22:13)
[2016-09-07] MEDS: ATORVASTATIN 40 MG TAB PO SCH (22:14)
--- NOTE | 2016-09-07 22:27 | CONS ---
DATE OF CONSULTATION: 09/07/2016 REASON FOR CONSULTATION: C. diff. colitis. HISTORY OF PRESENT ILLNESS: The patient is a 76-year-old male presenting to the ER at [facility] on 09/04/2016 with chief complaint of significant diarrhea. The patient also noticed having increasing shortness of breath and did have a fever at home. Patient, who was recently admitted to this facility on 08/19 with diarrhea. At that time, his stool for C. diff. was negative and the patient was treated symptomatically. He has another admission on 08/26 with the same symptoms of diarrhea for which the patient has been evaluated by GI Services. Stool for C. diff. was negative as well. The patient was discharged home on Metamucil, to which apparently the patient's diarrhea responded, as per the discharge summary. Prior to that, the patient did have admission to this facility on April 19 for lower extremity cellulitis, was treated with Cefazolin. The patient now brought back to the hospital on 09/04/2016 with above symptoms. In the ER, the patient was noticed to have a fever of 101 degrees Fahrenheit. The patient did have an elevated white cells of 11.1. Patient's UA was not significantly positive. He did have elevated BUN and creatinine and the lactic acid was 1.3. The patient C. diff. did come up positive this time. The patient has been started on vancomycin in addition to the Imodium. I was asked to see the patient today for further recommendation regarding his C. diff. colitis. The patient continues to deny having any nausea or vomiting. Denies significant chest pain or shortness of breath, cough. Denies significant abdominal pain. His diarrhea frequency is slightly decreased. No burning or frequency of urine. REVIEW OF SYSTEMS: CONSTITUTIONAL: Positive for weakness and the fever on admission as above. EYES: No complaint. HEENT: No complaint. RESPIRATORY: As per HPI. CARDIOVASCULAR: No complaint. GASTROINTESTINAL: As per HPI. GENITOURINARY: No complaint. MUSCULOSKELETAL: No complaint. INTEGUMENTARY: No complaint. PSYCHOLOGICAL: No complaint. ENDOCRINE: No complaint. NEUROLOGIC: No complaint. 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 The patient also has psoriatic arthritis for which he is on leflunomide, also history of skin cancer, deafness, hypertension, hyperlipidemia. PAST SURGICAL HISTORY: Back surgery, hernia repair, L4-L5 lumbar fusion, rotator cuff repair. SOCIAL HISTORY: No history of smoking. He is , lives with his . No drinking or drug use. FAMILY HISTORY: Father as a result of bone injuries at work. Mother at age of 80 from heart problems. ALLERGIES TO CEFALEXIN, AMITRIPTYLINE. MEDICATIONS: Patient came in on: 1. Eliquis. 2. Aspirin. 3. Lipitor. 4. TUMS. 5. Vitamin D2. 6. Pepcid. 7. Neurontin. 8. Lactinex. 9. Arava. 10. Prednisone. 11. Propranolol. 12. Flomax. 13. Tramadol. 14. Vancomycin 250 p.o. every 6 hours. On examination, blood pressure is 158/91 with a pulse of 84, temperature 97.3. He is 96% on room air. General description is an elderly male, lying in bed in no distress. No tachypnea or accessory muscle of respiration use. HEENT shows slight pallor. There is no scleral icterus. Oral mucous membranes dry. NECK: Trachea central. No thyromegaly. LUNGS: Unlabored breathing. Clear to auscultation anteriorly. HEART: S1, S2. Regular rate and rhythm. ABDOMEN: Soft. No tenderness. No guarding or rigidity. EXTREMITIES: With 3+ edema of feet. Otherwise no mass palpable. NEUROLOGICAL: The patient is awake, alert, oriented x3. Mood and affect normal. LABS: Hemoglobin 8.7, white count 5.5. Admission white count was 11.1 with a BUN of 52, creatinine 2.65. Urine is negative. Stool for C. diff. is positive. Urine culture Enterococcus faecalis. Blood culture has been negative. Stool cultures negative. DIAGNOSTIC IMPRESSION AND PLAN: Patient with acute sepsis on admission to hospital with a fever, elevated white count source c diff colitis. The patient, apparently this is his 3rd admission in the last 3 weeks with similar symptoms of diarrhea with a stool for Clostridium difficile negative. Could have been falsely negative with the stool KEYANA, as the pt with typical features of the Clostridium difficile and previous exposure to antibiotics for his lower extremity cellulitis. PLAN: 1. Vancomycin 250 p.o. every 6 hours for a total of 2 weeks at least. 2. Will discontinue Imodium to decrease risk of toxic megacolon and will add Questran for symptomatic treatment and toxin binding. 3. Patient advised to increase his yogurt and probiotic intake. 4. Will follow up on the clinical condition to further adjust his medication if needed. Thank you for this consultation. Will follow this patient along with you. NILO
[2016-09-08] MEDS: VANCOMYCIN ORAL SOLUTION 250 MG/5 ML BOTTLE PO SCH ×5 (00:34→23:23)
[2016-09-08] MEDS: CHERRY FLAVOR 60 ML BOTTLE PO SCH ×5 (00:34→23:23)
[2016-09-08] MEDS: SODIUM CHLORIDE 0.9% 1,000 ML IV SCH (05:57)
[2016-09-08] MEDS: LACTOBACILLUS ACIDOPH & BULGAR 1 EACH PACKET PO SCH ×3 (08:08→16:50)
[2016-09-08] MEDS: ASPIRIN 81 MG CHEW PO SCH (08:09)
[2016-09-08] MEDS: APIXABAN 2.5 MG TABLET PO SCH ×2 (08:09→22:23)
[2016-09-08] MEDS: CALCIUM CARBONATE 500 MG CHEWABLE PO SCH (08:09)
[2016-09-08] MEDS: CHOLESTYRAMINE (WITH SUGAR) 4 GM PACKET PO SCH ×2 (08:09→22:22)
[2016-09-08] MEDS: predniSONE 10 MG TAB PO SCH (08:10)
[2016-09-08] MEDS: NITROGLYCERIN OINT 1 INCH/GM PACKET TOPICAL SCH ×4 (08:10→22:23)
[2016-09-08] MEDS: FAMOTIDINE 20 MG TAB PO SCH (08:10)
[2016-09-08] MEDS: TAMSULOSIN 0.4 MG CAP.ER.24H PO SCH ×2 (08:11→22:23)
[2016-09-08] MEDS: traMADol 50 MG TAB PO PRN (08:11)
[2016-09-08 10:04] LABS: Calcium 8.1 mg/dL (8.4-10.2); Potassium 5.1 mmol/L (3.5-5.1)
[2016-09-08] MEDS: LEFLUNOMIDE 20 MG TAB PO SCH (13:55)
[2016-09-08] MEDS: PROPRANOLOL LA 60 MG CAP.SA.24H PO SCH (13:56)
--- NOTE | 2016-09-08 15:20 | PN ---
DATE OF SERVICE: 09/08/2016 Reason for followup is C. diff colitis. INTERVAL HISTORY: The patient is afebrile. He is feeling better. His diarrhea seems to have improved as only one small bowel movement this morning, was not watery. No abdominal pain. No nausea, no vomiting. Denies any urinary symptoms. On examination, blood pressure is 156/86 with a pulse of 89, temperature 97.3, he is 95% on room air. General description is an elderly male, lying in bed in no distress. RESPIRATORY SYSTEM: Unlabored breathing. Clear to auscultation anteriorly. HEART: S1, S2 with regular rate and rhythm. ABDOMEN: Soft, no tenderness. LABS: BUN of 65 with a creatinine of 2.35. DIAGNOSTIC IMPRESSION AND PLAN: Patient with Clostridium difficile colitis where the patient will continue on p.o. vancomycin to finish therapy for at least another two weeks along with a questran for symptomatic relief and toxin binding. was present at the bedside. She has a significant amount of questions regarding her 's care as well as contagiousness of the disease. All her questions were answered in the layman's term. Continue supportive care. NILO
[2016-09-08] MEDS ORDERED: FUROSEMIDE 10 MG/ML 4 ML VIAL IV STA (16:09)
--- NOTE | 2016-09-08 16:47 | PN ---
Patient is seen for followup for acute kidney injury on top of chronic kidney disease. He is admitted to the hospital with C difficile colitis. He is maintained on oral vancomycin and patient's diarrhea has been improving. He is significantly edematous and was maintained on IV fluids. The fluids were decreased yesterday. Patient has had good oral intake. I will discontinue the IV fluids. He received a dose of Lasix yesterday. We will give him another dose today. Renal function seems to be improving with creatinine now down to 2.3 from about 3.02 on 09/06/2016. On examination, patient is comfortable, awake, not in any acute distress. Blood pressure was 166/86. EXAMINATION OF THE HEART: S1 and S2. EXAMINATION OF THE LUNGS: Bilateral breath sounds are heard. ABDOMEN: Soft, nontender, obese. Examination of the lower extremities shows edema 3+ bilaterally. There is edema and weeping noted in the upper extremities as well. WEATHERIZATION TECHNICIAN exam is grossly intact. Labs show sodium 141, potassium 5.1, chloride 115, BUN 65, serum creatinine 2.3. Hemoglobin 8.7 g/dL. ASSESSMENT: 1. Acute kidney injury, acute tubular necrosis, currently improving. 2. Clostridium difficile colitis, maintained on oral vancomycin, slowly improving. 3. Chronic kidney disease secondary to FSGS, maintained on Prograf, which is currently on hold. Patient remains on prednisone, however, to maintain some degree of immunosuppression. 4. Psoriatic arthritis, maintained on leflunomide. 5. Significant edema and weeping. I will discontinue the IV fluids. Patient is encouraged to increase oral intake and we will repeat another dose of Lasix today. PLAN: Continue to encourage increased oral intake. Repeat Lasix. Hep-Lock IV fluids. Repeat labs in a.m. Possible discharge in the next 2 to 3 days.
[2016-09-08] MEDS: GABAPENTIN 300 MG CAP PO SCH ×2 (16:50→22:22)
--- NOTE | 2016-09-08 17:16 | P.PN ---
Subjective Date of service 09/08/2016. Progress note being dictated for Dr. Hood. Interval history: This is a 76-year-old gentleman admitted with recurrent C. difficile colitis, renal failure, UTI with enterococcus faecalis. evaluated by infectious disease, continues on oral vancomycin. diarrhea improving, 1 episode this morning. sitting up in chair, no abdominal pain. good diet intake. received another dose of Lasix today as per nephrology. Renal function continues to improve. Weeping Edema slowly improving.afebrile. Objective - Vital Signs Vital signs: Vital Signs Temp 97.3 F L 09/08/16 07:00 Pulse 89 09/08/16 07:00 Resp 20 09/08/16 07:00 BP 166/86 09/08/16 07:00 Pulse Ox 95 09/08/16 07:00 Intake & Output 09/07/16 09/08/16 09/08/16 18:59 06:59 18:59 Intake Total 720 350 440 Balance 720 350 440 Weight 107.5 kg Intake: Intake, IV Titration 400 Amount Sodium Chloride 0.9% 1, 400 000 ml @ 50 mls/hr IV . Q20H [facility] Rx#:[id number] Oral 320 350 440 Other: Voiding Method Diaper Diaper Incontinent Incontinent # Voids 2 3 3 # Bowel Movements 1 1 3 - Exam PHYSICAL EXAM: VITAL SIGNS: [As above] GENERAL: [Sitting up in chair, no acute distress] HEENT: [Pupils equal conjunctiva normal.] NECK: [Supple, no JVD] RESPIRATORY EFFORT: Normal LUNGS: [Clear to auscultation, no wheezes, rhonchi or crackles] CARDIOVASCULAR[regular S1 and S2, no murmurs rubs or gallops, improving edema] GI: [Abdomen soft, nontender, positive bowel sounds.] PSYCH: [Alert and oriented -3, mood and affect normal.] NEURO: [Gross neurological examination did not reveal any focal deficits, significant generalized weakness] - Labs CBC & Chem 7: 09/05/16 08:25 09/08/16 08:53 Labs: Abnormal Lab Results - Last 24 Hours (Table) 09/08/16 Range/Units 08:53 Chloride 115 H (98-107) mmol/L BUN 65 H (9-20) mg/dL Creatinine 2.35 H (0.66-1.25) mg/dL Calcium 8.1 L (8.4-10.2) mg/dL Assessment and Plan Plan: 1. Severe sepsis secondary to recurrent C. difficile colitis, third episode within a year and UTI. 2. [Acute renal failure secondary to severe intravascular depletion]. 3. 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 4. [Hypertension]. 5. [Hyperlipidemia]. 6. [Component of chronic diarrhea with outpatient GI follow-up recommended]. 7. [Morbid obesity, BMI 35.3]. 8. Psoriatic arthritis on Leflunomide. 9. Acute UTI with enterococcus faecalis Plan: Continue on current medication regime, Lactinex, oral vancomycin, monitoring and symptomatic treatment. Infectious disease consulted with recommendations noted. Close monitoring of renal function, electrolytes with repeat labs ordered for a.m. follow closely with nephrology. PT/OT. Prognosis guarded.discharge planning in progress pending nephrology clearance. Potential subacute rehab. The impression and plan of care has been dictated as directed. : I performed a H&P examination of this patient and discussed the same with the dictator. I agree with the dictator's note. Any additional findings/opinions/ etc. will be noted.
[2016-09-08] MEDS: ATORVASTATIN 40 MG TAB PO SCH (22:22)
[2016-09-09] MEDS: VANCOMYCIN ORAL SOLUTION 250 MG/5 ML BOTTLE PO SCH ×3 (05:57→17:17)
[2016-09-09] MEDS: CHERRY FLAVOR 60 ML BOTTLE PO SCH ×3 (05:57→17:17)
[2016-09-09] MEDS: FAMOTIDINE 20 MG TAB PO SCH (07:59)
[2016-09-09] MEDS: ASPIRIN 81 MG CHEW PO SCH (07:59)
[2016-09-09] MEDS: APIXABAN 2.5 MG TABLET PO SCH ×2 (07:59→21:39)
[2016-09-09] MEDS: LACTOBACILLUS ACIDOPH & BULGAR 1 EACH PACKET PO SCH ×3 (07:59→17:17)
[2016-09-09] MEDS: CHOLESTYRAMINE (WITH SUGAR) 4 GM PACKET PO SCH ×2 (07:59→21:38)
[2016-09-09] MEDS: predniSONE 10 MG TAB PO SCH (07:59)
[2016-09-09] MEDS: CALCIUM CARBONATE 500 MG CHEWABLE PO SCH (08:00)
[2016-09-09] MEDS: TAMSULOSIN 0.4 MG CAP.ER.24H PO SCH ×2 (08:00→21:38)
[2016-09-09] MEDS: NITROGLYCERIN OINT 1 INCH/GM PACKET TOPICAL SCH ×4 (08:00→21:39)
[2016-09-09 09:15] LABS: Calcium 8.2 mg/dL (8.4-10.2); Potassium 4.7 mmol/L (3.5-5.1)
[2016-09-09] MEDS: LEFLUNOMIDE 20 MG TAB PO SCH (12:18)
[2016-09-09] MEDS: PROPRANOLOL LA 60 MG CAP.SA.24H PO SCH (12:18)
[2016-09-09] MEDS ORDERED: FUROSEMIDE 10 MG/ML 4 ML VIAL IV STA (13:28)
--- NOTE | 2016-09-09 15:59 | PN ---
Patient is seen for followup for acute kidney injury on top of chronic kidney disease. He was admitted with C difficile colitis. His diarrhea seems to have improved. He is maintained on oral vancomycin. Patient had developed significant third spacing and interstitial edema, which has slightly improved, particularly in his right upper extremity. Left upper extremity remains quite edematous. There are no complaints of pain. Serum creatinine has been decreasing. Patient is currently eating fairly well. On examination, blood pressure is 142/76, heart rate 96 per minute. He is afebrile. EXAMINATION OF THE HEART: S1 and S2. EXAMINATION OF LUNGS: Decreased breath sounds in bases. ABDOMEN: Soft, nontender, obese. Examination of lower extremities shows edema 3+ bilaterally. Left upper extremity is much more swollen than right upper extremity. Labs show sodium 141, potassium 4.7, serum creatinine down to 1.92. GFR is at 34 mL/minute. ASSESSMENT: 1. Acute kidney injury, currently improving, mainly acute tubular necrosis and non-oliguric secondary to Clostridium difficile colitis. 2. Significant edema secondary to ongoing diarrhea and hypoalbuminemia. Will repeat another dose of Lasix. IV fluids have been discontinued. Patient is encouraged to continue to maintain good oral intake, particularly of protein. 3. Chronic kidney disease secondary to FSGS, maintained on Prograf and prednisone as outpatient; however, the Prograf is currently on hold secondary to his current Clostridium difficile colitis. 4. Psoriatic arthritis, maintained on leflunomide. PLAN: Repeat Lasix. Check venous Doppler, left upper extremity. Rule out DVT. We can wrap his lower extremities. Repeat labs in a.m.
--- NOTE | 2016-09-09 16:08 | US ---
EXAMINATION TYPE: US venous doppler duplex UE LT DATE OF EXAM: 09/09/2016 2:49 PM COMPARISON: NONE CLINICAL HISTORY: increased left arm edema. Left arm sweling SIDE PERFORMED: Left Venous Doppler ultrasound demonstrates the visualized vessels to be patent with normal compressibilit y. IMPRESSION: No diagnostic evidence of DVT.
[2016-09-09] MEDS: GABAPENTIN 300 MG CAP PO SCH ×2 (17:16→21:38)
[2016-09-09] MEDS: traMADol 50 MG TAB PO PRN (18:29)
--- NOTE | 2016-09-09 18:32 | P.PN ---
Subjective Date of service 09/09/2016. Progress note being dictated for Dr. Hood. Interval history: This is a 76-year-old gentleman admitted with recurrent C. difficile colitis, renal failure, UTI with enterococcus faecalis. Continues on oral vancomycin as per infectious disease. Significant improvement in diarrhea , with none this morning .Renal function continues to improve. Hypoalbuminemia with significant edema. Edema improving, more so in the upper extremities .left upper extremity negative for DVT. Sitting up in chair, consuming 50-100% of meals. Denies abdominal pain. Hypertensive during the night and earlier this morning, blood pressure improved, currently 142/96. Lasix IV push repeated today, as per nephrology. Afebrile. Chest decreased chest pain, or palpitations. Denies shortness of breath. No lightheadedness, dizziness or focal deficits. Objective - Vital Signs Vital signs: Vital Signs Temp 97.7 F 09/09/16 15:00 Pulse 96 09/09/16 15:00 Resp 16 09/09/16 15:00 BP 142/76 09/09/16 15:00 Pulse Ox 96 09/09/16 15:00 Intake & Output 09/08/16 09/09/16 09/09/16 18:59 06:59 18:59 Intake Total 440 150 450 Balance 440 150 450 Weight 109 kg Intake: Oral 440 150 450 Other: Voiding Method Diaper Incontinent Incontinent # Voids 1 1 1 # Bowel Movements 1 1 - Exam PHYSICAL EXAM: VITAL SIGNS: [As above] GENERAL: [Sitting up in chair, no acute distress] HEENT: [Pupils equal conjunctiva normal.] NECK: [Supple, no JVD] RESPIRATORY EFFORT: Normal LUNGS: [Clear to auscultation, no wheezes, rhonchi or crackles] CARDIOVASCULAR[regular S1 and S2, no murmurs rubs or gallops, improving edema] GI: [Abdomen soft, nontender, positive bowel sounds.] PSYCH: [Alert and oriented -3, mood and affect normal.] SKIN: Bilateral lower Lavelle wraps clean dry and intact NEURO: [Gross neurological examination did not reveal any focal deficits, significant generalized weakness] Microbiology 09/04/16 14:46 Blood Blood Culture - Preliminary No Growth after 120 hours 09/04/16 15:00 Urine,Catheterized Urine Culture - Final Enterococcus faecalis - Labs CBC & Chem 7: 09/05/16 08:25 05/04/17 08:15 Labs: Abnormal Lab Results - Last 24 Hours (Table) 09/09/16 Range/Units 08:15 Chloride 114 H (98-107) mmol/L BUN 59 H (9-20) mg/dL Creatinine 1.92 H (0.66-1.25) mg/dL Glucose 118 H (74-99) mg/dL Calcium 8.2 L (8.4-10.2) mg/dL Assessment and Plan Plan: 1. Severe sepsis secondary to recurrent C. difficile colitis, third episode within a year and UTI. 2. [Acute renal failure secondary to severe intravascular depletion]. 3. 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 4. [Hypertension]. 5. [Hyperlipidemia]. 6. [Component of chronic diarrhea with outpatient GI follow-up recommended]. 7. [Morbid obesity, BMI 35.3]. 8. Psoriatic arthritis on Leflunomide. 9. Acute UTI with enterococcus faecalis 10. Hypoalbuminemia Plan: Continue on current medication regime, Lactinex, oral vancomycin, monitoring and symptomatic treatment. Increase protein intake. Protein supplements as recommended per dietitian, 3 times a day between meals and daily at bedtime snack. Antibiotics as per Infectious disease. Close monitoring of renal function, electrolytes with repeat labs ordered for a.m. PT/OT. Prognosis guarded. Discharge planning in progress for [facility] rehab, preauthorization in progress-discussed with significant other and patient at bedside. The impression and plan of care has been dictated as directed. : I performed a H&P examination of this patient and discussed the same with the dictator. I agree with the dictator's note. Any additional findings/opinions/ etc. will be noted.
[2016-09-09] MEDS: ATORVASTATIN 40 MG TAB PO SCH (21:38)
--- NOTE | 2016-09-09 22:46 | PN ---
DATE OF SERVICE: 09/09/2016 REASON FOR FOLLOWUP: C difficile colitis. INTERVAL HISTORY: The patient is afebrile. He has been feeling better, breathing comfortably. His diarrhea seems to have improved, slightly forming up. No blood or mucus in it. No abdominal pain and no urinary symptoms. On examination, blood pressure 142/76 with a pulse of 96, temperature 97.7. He is 96% on room air. General description is an elderly male lying in bed in no distress. RESPIRATORY SYSTEM: Unlabored breathing. Clear to auscultation anteriorly. HEART: S1, S2. Regular rate and rhythm. ABDOMEN: Soft. No tenderness. LABS: BUN of 59 with a creatinine 1.92. DIAGNOSTIC IMPRESSION AND PLAN: 1. Patient with Clostridium difficile colitis, for which the patient will continue p.o. vancomycin 250 mg by mouth every 6 hours for 10 to 12 days along with the Questran for symptomatic relief and toxin binding. 2. Patient with a positive urine culture, more likely colonization/contamination, as the patient has no clinical disease to go along with it; hence no need for any further systemic antibiotic therapy for the positive urine culture. [facility]
[2016-09-10] MEDS: CHERRY FLAVOR 60 ML BOTTLE PO SCH ×3 (00:09→11:43)
[2016-09-10] MEDS: VANCOMYCIN ORAL SOLUTION 250 MG/5 ML BOTTLE PO SCH ×3 (00:10→11:43)
[2016-09-10] MEDS: CALCIUM CARBONATE 500 MG CHEWABLE PO SCH (07:43)
[2016-09-10] MEDS: FAMOTIDINE 20 MG TAB PO SCH (07:43)
[2016-09-10] MEDS: APIXABAN 2.5 MG TABLET PO SCH (07:43)
[2016-09-10] MEDS: LACTOBACILLUS ACIDOPH & BULGAR 1 EACH PACKET PO SCH ×2 (07:43→11:44)
[2016-09-10] MEDS: TAMSULOSIN 0.4 MG CAP.ER.24H PO SCH (07:44)
[2016-09-10] MEDS: CHOLESTYRAMINE (WITH SUGAR) 4 GM PACKET PO SCH (07:44)
[2016-09-10] MEDS: ASPIRIN 81 MG CHEW PO SCH (07:44)
[2016-09-10] MEDS: predniSONE 10 MG TAB PO SCH (07:44)
[2016-09-10] MEDS: NITROGLYCERIN OINT 1 INCH/GM PACKET TOPICAL SCH ×2 (07:46→14:19)
[2016-09-10 10:15] LABS: Calcium 8.2 mg/dL (8.4-10.2); Potassium 4.5 mmol/L (3.5-5.1)
[2016-09-10] MEDS: LEFLUNOMIDE 20 MG TAB PO SCH (11:44)
[2016-09-10] MEDS: PROPRANOLOL LA 60 MG CAP.SA.24H PO SCH (11:44)
--- NOTE | 2016-09-10 12:26 | P.DS ---
Providers Date of admission: 09/04/16 16:06 Attending physician: Piter Hood Consults: 09/04/16 19:53 Consult Physician Routine Consulting Provider: Delfino Hutchins Consult Reason/Comments: Renal failure Do you want consulting provider notified?: Yes 09/07/16 12:36 Consult Physician Routine Consulting Provider: Bird Jay Consult Reason/Comments: recurring c.diff Do you want consulting provider notified?: Yes Primary care physician: [facility] Hospital Course: Diagnoses: 1. Severe sepsis secondary to recurrent C. difficile colitis, third episode within a year 2. [Acute renal failure secondary to severe intravascular depletion]. 3. 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 4. [Hypertension]. 5. [Hyperlipidemia]. 6. [Component of chronic diarrhea with outpatient GI follow-up recommended]. 7. [Morbid obesity, BMI 35.3]. 8. Psoriatic arthritis on Leflunomide. 9. Acute UTI with enterococcus faecalis, suspect colonization/contamination-no need for any further systemic antibiotic therapy as per ID. 10. Hypoalbuminemia Hospital course:This is a 76-year-old gentleman admitted with recurrent C. difficile colitis, renal failure, hypoalbuminemia , weeping edema of extremities , hyperchloremia and multiple other medical issues. Evaluated by nephrology and infectious disease. Received IV fluid hydration, occasional Lasix. Maintained on oral vancomycin. Significant clinical improvement with renal function, diarrhea and edema improving.Patient has been cleared by nephrology for discharge, with orders for Lasix 80 mg twice a day, recheck CBC, BMP in 3 days. Patient Is being discharged to [facility] in stable condition with guarded prognosis. The impression and plan of care has been dictated as directed. : I performed a H&P examination of this patient and discussed the same with the dictator. I agree with the dictator's note. Any additional findings/opinions/ etc. will be noted. Patient Condition at Discharge: Stable Plan - Discharge Summary New Discharge Prescriptions: Isosorbide Mononitrate ER [Imdur] 30 mg PO DAILY #1 tab Discharge Medication List Ergocalciferol [Vitamin D2 (DRISDOL)] 50,000 units PO DEAL 01/16/14 [History] Leflunomide [Arava] 20 mg PO AC-LUNCH 01/16/14 [History] Phosphorus #1 [Phospha 250 Neutral Tablet] 250 mg PO BID 01/16/14 [History] Ranitidine HCl [Zantac] 150 mg PO BID 01/16/14 [History] Tamsulosin HCl [Flomax] 0.4 mg PO BID 01/16/14 [History] Propranolol LA [Inderal LA] 60 mg PO AC-LUNCH 12/17/14 [History] Tacrolimus [Prograf] 2 mg PO DAILY 03/27/15 [History] Calcium Carbonate [Calcium] 600 mg PO DAILY 03/25/16 [History] predniSONE 10 mg PO DAILY 03/25/16 [History] Atorvastatin [Lipitor] 40 mg PO HS 04/18/16 [History] [place]-3 Fatty Acids/Fish Oil [Fish Oil 1,000 mg Softgel] 1 cap PO DAILY [History] Tacrolimus [Prograf] 1 mg PO HS 08/19/16 [History] amLODIPine [Norvasc] 2.5 mg PO DAILY 08/19/16 [History] Apixaban [Eliquis] 2.5 mg PO BID #60 tablet 08/23/16 [Rx] Aspirin 81 mg PO DAILY chew 08/23/16 [Rx] Potassium Chloride ER [K-Dur 20] 20 meq PO BID #60 tab.er.prt 08/23/16 [Rx] Acetaminophen Tab [Tylenol] 650 mg PO Q6HR PRN #0 tab 08/29/16 [Rx] Psyllium Husk 100% [Metamucil Packet] 6 gm PO BID #60 packet 08/29/16 [Rx] traMADol HCl [Ultram] 50 mg PO Q6H PRN #30 tab 08/29/16 [Rx] Gabapentin [Neurontin] 600 mg PO BID@1600,2200 09/04/16 [History] Cholestyramine (with Sugar) [Questran Packet] 4 gm PO BID@0900,2100 packet 09/22 [Rx] Furosemide [Lasix] 80 mg PO BID@0900,1600 #60 tab 09/10/16 [Rx] Isosorbide Mononitrate ER [Imdur] 30 mg PO DAILY #1 tab 09/10/16 [Rx] Lactobacillus Acidoph & Bulgar [Lactinex] 1 each PO TID-W/MEALS packet [Rx] Vancomycin Oral Solution 250 mg PO Q6HR ml 09/10/16 [Rx] Follow up Appointment(s)/Referral(s): Clay Hall DO [Primary Care Provider] - 1 Week (after dc from ECF) Guero Padilla MD [STAFF PHYSICIAN] - 3 Days [facility], [NON-STAFF] - Pamella Diallo MD [STAFF PHYSICIAN] - 1 Week Patient Instructions/Handouts: Heart Failure (DC), Clostridium Difficile Infection (DC) Activity/Diet/Wound Care/Special Instructions: Cardiac,Renal diet. CBC,bmp in 3 days with results to PCP and Dr. Diallo Activity: as tolerated Lavelle wraps bilateral lower legs, each day. Discharge Disposition: TRANSFER TO SNF/ECF
--- NOTE | 2016-09-10 14:41 | PN ---
Patient is seen for followup for acute kidney injury secondary to ATN. He was admitted with C difficile colitis. He is being discharged to a rehab facility. Patient has had significant edema. He has received IV Lasix. Currently his IV is out and we can still discharge him and maintain on p.o. Lasix. Patient had been on 80 mg b.i.d. previously. His renal function continues to improve. His serum creatinine is now down to 1.7 mg/dL. He does not have any further diarrhea. On examination, blood pressure is 149/75, heart rate 91 per minute. He is afebrile. EXAMINATION OF THE HEART: S1 and S2. EXAMINATION OF THE LUNGS: Bilateral breath sounds are heard. Decreased breath sounds in bases. ABDOMEN: Soft, nontender, obese. Examination of lower extremities shows edema bilaterally about 3+. Currently legs are wrapped. Labs show sodium 141, potassium 4.5, BUN 58, serum creatinine 1.73. ASSESSMENT: 1. Acute kidney injury, acute tubular necrosis, currently improving. Etiology for ATN is C difficile colitis. 2. Significant edema, upper and lower extremities, with third spacing and hypoalbuminemia associated diarrhea, slowly improving. 3. Chronic kidney disease, stage IV, secondary to FSGS, currently off of Prograf and maintained on prednisone. 4. Psoriatic arthritis, maintained on leflunomide. 5. Hypertension, partly volume-sensitive, currently improved. 6. Clostridium difficile colitis, maintained on oral vancomycin. PLAN: Patient can be discharged. He will be maintained on Lasix 80 mg b.i.d. as outpatient with followup in one week's time. I will hold off on the Prograf for now and continue with the prednisone. We will adjust diuretics further based on his follow-up visit in one week.
[2016-09-10 14:55] VITALS: BP 143/81; PULSE 92; RESP 18; TEMP 96.5
--- NOTE | 2016-09-10 15:44 | PN ---
DATE OF SERVICE: 09/10/2016 REASON FOR FOLLOWUP: C difficile colitis. INTERVAL HISTORY: The patient is afebrile, currently breathing comfortably. Denies significant chest pain or cough. No abdominal pain. His diarrhea has resolved. On examination, blood pressure is 143/81 with a pulse of 92, temperature 96.5. He is 96% on room air. General description is an elderly male up in the bed in no distress. RESPIRATORY SYSTEM: Unlabored breathing. Clear to auscultation anteriorly. HEART: S1, S2. Regular rate and rhythm. ABDOMEN: Soft. No tenderness. LABS: BUN of 58 with a creatinine of 1.73. DIAGNOSTIC IMPRESSION AND PLAN: Patient with Clostridium difficile colitis, currently responding to p.o. vancomycin. Plan to continue on p.o. vancomycin for 10 days along with the Questran with close outpatient followup. MTDD
[2016-09-10] MEDS ORDERED: FUROSEMIDE 80 MG TAB PO SCH (16:00)
[2016-09-10] MEDS: GABAPENTIN 300 MG CAP PO SCH (16:41)
== END 2016-09-10 16:46 | DRG 871 ==
LOC: EC 13:59 → 6SEL 16:06 → 4MS4W 09-06 14:49
PROVIDERS: ADMIT Internal Medicine; ATTEND Internal Medicine
DX: A41.4 Sepsis due to anaerobes (principal); N17.0 Acute kidney failure with tubular necrosis; A04.7 Enterocolitis due to Clostridium difficile; I48.2 Chronic atrial fibrillation; E87.8 Other disorders of electrolyte and fluid balance, not elsewhere classified; E86.0 Dehydration; N05.9 Unspecified nephritic syndrome with unspecified morphologic changes; N18.4 Chronic kidney disease, stage 4 (severe); I13.0 Hypertensive heart and chronic kidney disease with heart failure and stage 1 through stage 4 chronic kidney disease, or unspecified chronic kidney disease; I50.32 Chronic diastolic (congestive) heart failure; E11.22 Type 2 diabetes mellitus with diabetic chronic kidney disease; N04.9 Nephrotic syndrome with unspecified morphologic changes; N39.0 Urinary tract infection, site not specified; E88.09 Other disorders of plasma-protein metabolism, not elsewhere classified; E66.01 Morbid (severe) obesity due to excess calories; L40.50 Arthropathic psoriasis, unspecified; E78.5 Hyperlipidemia, unspecified; B95.2 Enterococcus as the cause of diseases classified elsewhere; H91.90 Unspecified hearing loss, unspecified ear; I45.10 Unspecified right bundle-branch block; M19.90 Unspecified osteoarthritis, unspecified site; N26.9 Renal sclerosis, unspecified; R65.20 Severe sepsis without septic shock; T50.1X5A Adverse effect of loop [high-ceiling] diuretics, initial encounter; Z68.35 Body mass index [BMI] 35.0-35.9, adult; Z79.01 Long term (current) use of anticoagulants; Z79.52 Long term (current) use of systemic steroids; Z79.82 Long term (current) use of aspirin; Z79.899 Other long term (current) drug therapy; Z82.49 Family history of ischemic heart disease and other diseases of the circulatory system; Z85.828 Personal history of other malignant neoplasm of skin; Z86.73 Personal history of transient ischemic attack (TIA), and cerebral infarction without residual deficits; Z98.1 Arthrodesis status
CPT/HCPCS: 36415; 71020; 80048; 80053; 80202; 81001; 82550; 82553; 83605; 83735; 84100; 84484; 85025; 85027; 85610; 85730; 87040; 87077; 87086; 87186; 87324; 87502; 93005; 96365; 96375; 99285

== ENCOUNTER 2016-10-26 14:15 | Inpatient (IN) | payer MEDICARE ==
[2016-10-26] MEDS ORDERED: PANTOPRAZOLE 40 MG/10 ML VIAL IVP STA (14:44)
--- NOTE | 2016-10-26 14:47 | ED ---
General Adult HPI - General Chief complaint: Recheck/Abnormal Lab/Rx Stated complaint: sent by PCP low Hgb Time Seen by Provider: 10/26/16 14:31 Source: patient, family, RN notes reviewed Mode of arrival: wheelchair Limitations: no limitations - History of Present Illness Initial comments: Patient is a pleasant 76-year-old male presenting to the emergency Department with edema and low hemoglobin. Patient states edema has progressed over the past couple of months. Patient believes she is approximately 50 pounds. Patient did see his doctor today and his hemoglobin was found to be 7.0. Patient denies any bleeding or tarry stools. No abdominal pain. Patient does have some fatigue. Patient does feel somewhat short of breath. No history of edema or shortness of breath similar to this previously. Patient does have a history of chronic renal problems. - Related Data Home Medications Medication Instructions Recorded Confirmed Ergocalciferol [Vitamin D2 50,000 units PO DEAL 01/16/14 10/26/16 (DRISDOL)] Leflunomide [Arava] 20 mg PO AC-LUNCH 01/16/14 10/26/16 Ranitidine HCl [Zantac] 150 mg PO BID 01/16/14 10/26/16 Sod Phos Di, [place]/K Phos [place] 250 mg PO BID 01/16/14 10/26/16 [Phospha 250 Neutral Tablet] Tamsulosin HCl [Flomax] 0.4 mg PO BID 01/16/14 10/26/16 Propranolol LA [Inderal LA] 60 mg PO AC-LUNCH 12/17/14 10/26/16 Calcium Carbonate [Calcium] 600 mg PO DAILY 03/25/16 10/26/16 predniSONE 10 mg PO DAILY 03/25/16 10/26/16 Atorvastatin [Lipitor] 40 mg PO HS 04/18/16 10/26/16 [place]-3 Fatty Acids/Fish Oil [Fish 1 cap PO DAILY 04/18/16 10/26/16 Oil 1,000 mg Softgel] Tacrolimus [Prograf] 1 mg PO TID 08/19/16 10/26/16 Gabapentin [Neurontin] 600 mg PO BID@1600,2200 09/04/16 10/26/16 Allopurinol [Zyloprim] 100 mg PO BID 10/26/16 10/26/16 Bumetanide 2 mg PO TID 10/26/16 10/26/16 Enalapril [Vasotec] 20 mg PO DAILY 10/26/16 10/26/16 Ferrous Sulfate [Feosol] 325 mg PO DAILY 10/26/16 10/26/16 L.acidoph,Paracasei, B.lactis 1 cap PO DAILY 10/26/16 10/26/16 [Probiotic] Metolazone [Zaroxolyn] 5 mg PO BID 10/26/16 10/26/16 Multivitamins, Thera [Multivitamin 1 tab PO DAILY 10/26/16 10/26/16 (formulary)] traMADol HCL [Ultram] 50 mg PO BID PRN 10/26/16 10/26/16 Previous Rx's Medication Instructions Recorded Apixaban [Eliquis] 2.5 mg PO BID #60 tablet 08/23/16 Aspirin 81 mg PO DAILY chew 08/23/16 Potassium Chloride ER [K-Dur 20] 20 meq PO BID #60 tab.er.prt 08/23/16 Isosorbide Mononitrate ER [Imdur] 30 mg PO DAILY #1 tab 09/10/16 Allergies Allergy/AdvReac Type Severity Reaction Status Date / Time sumatriptan [From Imitrex] Allergy Swelling Verified 10/26/16 15:04 sumatriptan succinate Allergy Swelling Verified 10/26/16 15:04 [From Imitrex] cephalexin [From Keflex] AdvReac Diarrhea Verified 10/26/16 15:04 Review of Systems ROS Statement: Those systems with pertinent positive or pertinent negative responses have been documented in the HPI. ROS Other: All systems not noted in ROS Statement are negative. Constitutional: Denies: fever Eyes: Denies: eye pain ENT: Denies: ear pain Respiratory: Reports: dyspnea. Denies: cough Cardiovascular: Denies: chest pain Endocrine: Reports: fatigue Gastrointestinal: Denies: abdominal pain Genitourinary: Denies: dysuria Musculoskeletal: Denies: back pain Skin: Denies: rash Neurological: Denies: headache Past Medical History Past Medical History: Atrial Fibrillation, Cancer, Heart Failure, Hearing Disorder / Deafness, Hyperlipidemia, Hypertension, Musculoskeletal Disorder, Renal Disease Additional Past Medical History / Comment(s): HX SKIN CA. psoriatic arthritis. nephrotic syndrome. chronic back pain. DENIES GOUT. PAST HX OF MIGRAINES. HX iron infusion. patient states he is pre-diabetic. EDEMA PETROS LOWER LEGS, ANKLES.petros torn rotator cuffs(had a previous sx on rt side but injured it again) History of Any Multi-Drug Resistant Organisms: None Reported Past Surgical History: Back Surgery, Hernia Repair, Orthopedic Surgery Additional Past Surgical History / Comment(s): L4-5 LUMBAR FUSION-(total of 4 back surguries)NECK FUSION. RT ROTATOR CUFF," kidney bx-neg". Surgical scar from skin cancer/surgery on right side of head. MULT PAIN PROC, LAST 05/12/16. Past Anesthesia/Blood Transfusion Reactions: No Reported Reaction Past Psychological History: No Psychological Hx Reported Smoking Status: Never smoker Past Alcohol Use History: None Reported Past Drug Use History: None Reported - Past Family History Father Additional Family Medical History / Comment(s): as a results of burn injuries in work related accident Mother Additional Family Medical History / Comment(s): at age 84 from heart problems Sister(s) Family Medical History: Cancer Additional Family Medical History / Comment(s): mother-- HTN. brother-- Diabetes, kidney problems General Exam Limitations: no limitations General appearance: alert, in no apparent distress Head exam: Present: atraumatic Eye exam: Present: normal appearance, PERRL ENT exam: Present: normal oropharynx Neck exam: Present: normal inspection Respiratory exam: Present: decreased breath sounds (Bilateral bases) Cardiovascular Exam: Present: regular rate, normal rhythm GI/Abdominal exam: Present: soft. Absent: tenderness Rectal exam: Present: normal inspection. Absent: bloody stool Extremities exam: Present: pedal edema, other (Arm edema) Neurological exam: Present: alert Psychiatric exam: Present: normal affect, normal mood Skin exam: Present: normal color Course Vital Signs 10/26/16 10/26/16 10/26/16 14:26 15:29 16:35 Temperature 97.7 F 97.1 F L Pulse Rate 72 52 L 79 Respiratory 23 18 18 Rate Blood Pressure 142/65 119/82 180/101 O2 Sat by Pulse 92 L 96 99 Oximetry EKG Findings - EKG Comments: EKG Findings:: Sinus rhythm at 88. For screening AV block with a OH of 240. QRS 134. QT 394. QTC 476. Right axis. Right bundle branch block. Inferior Q waves. Inverted T waves leads 3 and aVF. Medical Decision Making - Medical Decision Making Patient reexamined and resting comfortably in bed. Patient and family updated on results and plan. Case was discussed with practitioner Shan, who will admit for Dr. Hood, covering for Dr. bosch, who admits for Dr. Hall. Heparin will be held at this time secondary to anemia. Troponin elevation likely related to CHF however will need to be further evaluated. - Lab Data Result diagrams: 10/26/16 14:50 10/26/16 14:50 Lab Results 10/26/16 10/26/16 10/26/16 Range/Units 14:50 14:50 14:50 WBC 7.9 (3.8-10.6) k/uL RBC 2.21 L (4.30-5.90) m/uL Hgb 6.9 L* D (13.0-17.5) gm/dL Hct 22.0 L (39.0-53.0) % MCV 99.3 (80.0-100.0) fL MCH 31.4 (25.0-35.0) pg MCHC 31.7 (31.0-37.0) g/dL RDW 18.3 H (11.5-15.5) % Plt Count 188 (150-450) k/uL Neutrophils % 79 % Lymphocytes % 8 % Monocytes % 7 % Eosinophils % 3 % Basophils % 0 % Neutrophils # 6.2 (1.3-7.7) k/uL Lymphocytes # 0.6 L (1.0-4.8) k/uL Monocytes # 0.5 (0-1.0) k/uL Eosinophils # 0.3 (0-0.7) k/uL Basophils # 0.0 (0-0.2) k/uL Hypochromasia Slight Anisocytosis Slight Macrocytosis Slight PT (9.0-12.0) sec INR (<1.1) APTT (22.0-30.0) sec Sodium 144 (137-145) mmol/L Potassium 4.3 (3.5-5.1) mmol/L Chloride 108 H (98-107) mmol/L Carbon Dioxide 28 (22-30) mmol/L Anion Gap 8 mmol/L BUN 87 H* (9-20) mg/dL Creatinine 2.59 H (0.66-1.25) mg/dL Est GFR (MDRD) Af Amer 29 (>60 ml/min/1.73 sqM) Est GFR (MDRD) Non-Af 24 (>60 ml/min/1.73 sqM) Glucose 116 H (74-99) mg/dL Calcium 8.3 L (8.4-10.2) mg/dL Total Bilirubin 0.6 (0.2-1.3) mg/dL AST 26 (17-59) U/L ALT 25 (21-72) U/L Alkaline Phosphatase 121 (38-126) U/L Total Creatine Kinase 66 (55-170) U/L CK-MB (CK-2) 2.2 (0.0-2.4) ng/mL CK-MB (CK-2) Rel Index 3.3 Troponin I 0.079 H* (0.000-0.034) ng/mL NT-Pro-B Natriuret Pep pg/mL Total Protein 5.1 L (6.3-8.2) g/dL Albumin 2.3 L (3.5-5.0) g/dL Stool Occult Blood (Negative) Blood Type Blood Type Recheck Antibody Screen Crossmatch Spec Expiration Date 10/26/16 10/26/16 10/26/16 Range/Units 14:50 14:50 14:50 WBC (3.8-10.6) k/uL RBC (4.30-5.90) m/uL Hgb (13.0-17.5) gm/dL Hct (39.0-53.0) % MCV (80.0-100.0) fL MCH (25.0-35.0) pg MCHC (31.0-37.0) g/dL RDW (11.5-15.5) % Plt Count (150-450) k/uL Neutrophils % % Lymphocytes % % Monocytes % % Eosinophils % % Basophils % % Neutrophils # (1.3-7.7) k/uL Lymphocytes # (1.0-4.8) k/uL Monocytes # (0-1.0) k/uL Eosinophils # (0-0.7) k/uL Basophils # (0-0.2) k/uL Hypochromasia Anisocytosis Macrocytosis PT 10.3 (9.0-12.0) sec INR 1.0 (<1.1) APTT 23.6 (22.0-30.0) sec Sodium (137-145) mmol/L Potassium (3.5-5.1) mmol/L Chloride (98-107) mmol/L Carbon Dioxide (22-30) mmol/L Anion Gap mmol/L BUN (9-20) mg/dL Creatinine (0.66-1.25) mg/dL Est GFR (MDRD) Af Amer (>60 ml/min/1.73 sqM) Est GFR (MDRD) Non-Af (>60 ml/min/1.73 sqM) Glucose (74-99) mg/dL Calcium (8.4-10.2) mg/dL Total Bilirubin (0.2-1.3) mg/dL AST (17-59) U/L ALT (21-72) U/L Alkaline Phosphatase (38-126) U/L Total Creatine Kinase (55-170) U/L CK-MB (CK-2) (0.0-2.4) ng/mL CK-MB (CK-2) Rel Index Troponin I (0.000-0.034) ng/mL NT-Pro-B Natriuret Pep 89501 pg/mL Total Protein (6.3-8.2) g/dL Albumin (3.5-5.0) g/dL Stool Occult Blood Negative (Negative) Blood Type Blood Type Recheck Antibody Screen Crossmatch Spec Expiration Date 10/26/16 Range/Units 14:50 WBC (3.8-10.6) k/uL RBC (4.30-5.90) m/uL Hgb (13.0-17.5) gm/dL Hct (39.0-53.0) % MCV (80.0-100.0) fL MCH (25.0-35.0) pg MCHC (31.0-37.0) g/dL RDW (11.5-15.5) % Plt Count (150-450) k/uL Neutrophils % % Lymphocytes % % Monocytes % % Eosinophils % % Basophils % % Neutrophils # (1.3-7.7) k/uL Lymphocytes # (1.0-4.8) k/uL Monocytes # (0-1.0) k/uL Eosinophils # (0-0.7) k/uL Basophils # (0-0.2) k/uL Hypochromasia Anisocytosis Macrocytosis PT (9.0-12.0) sec INR (<1.1) APTT (22.0-30.0) sec Sodium (137-145) mmol/L Potassium (3.5-5.1) mmol/L Chloride (98-107) mmol/L Carbon Dioxide (22-30) mmol/L Anion Gap mmol/L BUN (9-20) mg/dL Creatinine (0.66-1.25) mg/dL Est GFR (MDRD) Af Amer (>60 ml/min/1.73 sqM) Est GFR (MDRD) Non-Af (>60 ml/min/1.73 sqM) Glucose (74-99) mg/dL Calcium (8.4-10.2) mg/dL Total Bilirubin (0.2-1.3) mg/dL AST (17-59) U/L ALT (21-72) U/L Alkaline Phosphatase (38-126) U/L Total Creatine Kinase (55-170) U/L CK-MB (CK-2) (0.0-2.4) ng/mL CK-MB (CK-2) Rel Index Troponin I (0.000-0.034) ng/mL NT-Pro-B Natriuret Pep pg/mL Total Protein (6.3-8.2) g/dL Albumin (3.5-5.0) g/dL Stool Occult Blood (Negative) Blood Type O Positive Blood Type Recheck No Antibody Screen NEGATIVE Crossmatch See Detail Spec Expiration Date 10/29/2016 - 2149 - Radiology Data Radiology results: image reviewed (Chest x-ray shows cardiomegaly and central vascular congestion.) Critical Care Time Critical Care Time: Yes Total Critical Care Time: 31 Disposition Clinical Impression: CHF (congestive heart failure), Anemia Disposition: ADMITTED IP TO THIS [facility] Condition: Serious Referrals: Clay Hall DO [Primary Care Provider] - 1-2 days Decision Time: 16:45
[2016-10-26 15:00] LABS: Anisocytosis Slight; Basophils % (A) 0 %; CH 31.6; CHCM 32.1; Eosinophils # (A) 0.3 k/uL (0-0.7); Eosinophils % (A) 3 %; HDW 2.75; Hypochromasia Slight; Luc # (Auto) 0.21; Luc % (Auto) 3; Lymphocytes # (A) 0.6 k/uL (1.0-4.8); Lymphocytes % (A) 8 %; MCH 31.4 pg (25.0-35.0); MCHC 31.7 g/dL (31.0-37.0); MCV 99.3 fL (80.0-100.0); Macrocytosis Slight; Mean Platelet Volume 8.7; Monocytes # (A) 0.5 k/uL (0-1.0); Monocytes % (A) 7 %; Neutrophils # (A) 6.2 k/uL (1.3-7.7); Neutrophils % (A) 79 %; RBC 2.21 m/uL (4.30-5.90); RDW 18.3 % (11.5-15.5); WBC 7.9 k/uL (3.8-10.6); WBC (Perox) 7.85
[2016-10-26 15:07] LABS: Partial Thromboplastin Time 23.6 sec (22.0-30.0); Prothrombin Time 10.3 sec (9.0-12.0)
[2016-10-26 15:10] LABS: Calcium 8.3 mg/dL (8.4-10.2); HGB 6.9 gm/dL (13.0-17.5); Potassium 4.3 mmol/L (3.5-5.1); Total Bilirubin 0.6 mg/dL (0.2-1.3); Total Protein 5.1 g/dL (6.3-8.2)
[2016-10-26 15:32] LABS: Creatine Kinase MB 2.2 ng/mL (0.0-2.4)
[2016-10-26 15:33] LABS: Troponin I 0.079 ng/mL (0.000-0.034)
--- NOTE | 2016-10-26 16:35 | XR ---
EXAMINATION TYPE: XR chest 2V DATE OF EXAM: 10/26/2016 COMPARISON: Chest x-ray September 04, 2016 HISTORY: Shortness of breath TECHNIQUE: Frontal and lateral views of the chest are obtained. FINDINGS: There is low lung volumes and cardiomegaly with worsening interstitial markings suggesting edema. Small bilateral pleural effusions are felt present on lateral view with blunting of posterior costophrenic angle similar to prior study. Metallic cage and fusion plate in the cervical spine is r edemonstrated. IMPRESSION: Suspect CHF exacerbation as there is cardiomegaly with central vascular congestion and s mall bilateral pleural effusions redemonstrated. Clinical correlation advised.
[2016-10-26] MEDS ORDERED: ASPIRIN 325 MG TAB PO STA (16:45)
[2016-10-26] MEDS ORDERED: FUROSEMIDE 10 MG/ML 4 ML VIAL IV STA (16:57)
[2016-10-26] MEDS: NITROGLYCERIN OINT 1 INCH/GM PACKET TOPICAL SCH ×2 (17:49→21:23)
[2016-10-26] MEDS: TACROLIMUS 1 MG CAP PO SCH (21:06)
[2016-10-26] MEDS: METOLAZONE 5 MG TAB PO SCH (21:06)
[2016-10-26] MEDS: FAMOTIDINE 20 MG TAB PO SCH (21:06)
[2016-10-26] MEDS ORDERED: NITROGLYCERIN OINT 1 INCH/GM PACKET TOPICAL ONE (21:19)
[2016-10-26] MEDS: FUROSEMIDE 10 MG/ML 4 ML VIAL IV SCH (23:36)
[2016-10-27 03:03] LABS: Anisocytosis Slight; Basophils % (A) 0 %; CH 31.1; CHCM 31.3; Eosinophils # (A) 0.1 k/uL (0-0.7); Eosinophils % (A) 2 %; HCT 23.3 % (39.0-53.0); HDW 3.14; HGB 7.2 gm/dL (13.0-17.5); Hypochromasia Slight; Luc # (Auto) 0.15; Luc % (Auto) 2; Lymphocytes # (A) 0.4 k/uL (1.0-4.8); Lymphocytes % (A) 7 %; MCHC 30.9 g/dL (31.0-37.0); MCV 100.2 fL (80.0-100.0); Macrocytosis Moderate; Mean Platelet Volume 7.5; Monocytes # (A) 0.4 k/uL (0-1.0); Monocytes % (A) 7 %; Neutrophils % (A) 82 %; RBC 2.32 m/uL (4.30-5.90); RDW 18.8 % (11.5-15.5); WBC 6.1 k/uL (3.8-10.6); WBC (Perox) 6.13
[2016-10-27 03:17] LABS: Calcium 8.3 mg/dL (8.4-10.2)
[2016-10-27] MEDS: NITROGLYCERIN OINT 1 INCH/GM PACKET TOPICAL SCH ×4 (08:23→22:38)
[2016-10-27] MEDS: APIXABAN 2.5 MG TABLET PO SCH ×2 (08:41→22:38)
[2016-10-27] MEDS: ISOSORBIDE MONONITRATE ER 30 MG TAB.ER.24H PO SCH (08:41)
[2016-10-27] MEDS: FAMOTIDINE 20 MG TAB PO SCH (08:41)
[2016-10-27] MEDS: FUROSEMIDE 10 MG/ML 4 ML VIAL IV SCH (08:41)
[2016-10-27] MEDS: CALCIUM CARBONATE 500 MG CHEWABLE PO SCH (08:41)
[2016-10-27] MEDS: DOCUSATE 100 MG CAP PO SCH ×3 (08:42→22:40)
[2016-10-27] MEDS: ALLOPURINOL 100 MG TAB PO SCH ×2 (08:42→22:38)
[2016-10-27] MEDS: FERROUS SULFATE 325 MG TAB PO SCH (08:42)
[2016-10-27] MEDS: LACTOBACILLUS ACIDOPH & BULGAR 1 EACH PACKET PO SCH (08:43)
[2016-10-27] MEDS: POTASSIUM CHLORIDE ER 20 MEQ TAB.ER PO SCH ×2 (08:43→22:38)
[2016-10-27] MEDS: TACROLIMUS 1 MG CAP PO SCH ×3 (08:45→22:38)
[2016-10-27] MEDS: LISINOPRIL 20 MG TAB PO SCH (08:45)
[2016-10-27] MEDS: predniSONE 10 MG TAB PO SCH (08:45)
[2016-10-27] MEDS: METOLAZONE 5 MG TAB PO SCH ×2 (08:46→22:38)
[2016-10-27] MEDS: TAMSULOSIN 0.4 MG CAP.ER.24H PO SCH ×2 (08:47→22:38)
[2016-10-27] MEDS ORDERED: ASPIRIN 325 MG TAB PO SCH (09:00)
[2016-10-27] MEDS ORDERED: LACTOBACILLUS ACIDOPH & BULGAR 1 EACH PACKET PO SCH (09:00)
--- NOTE | 2016-10-27 09:39 | P.CRDCN ---
History of Present Illness Consult date: 10/27/16 Requesting physician: Piter Hood Consult reason: congestive heart failure Chief complaint: Anemia, congestive heart failure History of present illness: This is a pleasant 76-year-old gentleman with known history of hypertension, hyperlipidemia, cirrhotic arthritis, chronic renal failure who follows with Dr. Diallo and at [facility] for his kidneys, patient had a recent hospitalization with C. diff, also has history of CVA, chronic persistent atrial fibrillation. Patient was seen in the office yesterday by Dr. Tellez, he also has been being monitored closely as an outpatient because his hemoglobin has been low. Yesterday it was noted that his hemoglobin dropped below 7 and he was recommended to come to the hospital for further admission. Most of the history was obtained from the and the medical record. She states that he's also been putting on a significant amount of peripheral edema. Hemoglobin on admission 6.9, 7.2 this morning. Potassium 4.3 on admission, 4.0 this morning. BUN 89, creatinine 2.5. Troponins 0.079, 0.074, 0.068. BNP level 18,500. Stool for occult blood negative. Let pressure on admission 142/65 with a heart rate in the 70s. Blood pressure this morning 148/90 with a heart rate in the 60s to 70s. EKG on admission shows atrial fibrillation with a right bundle branch block pattern and nonspecific ST- T wave changes. Chest x-ray reveals congestive heart failure exacerbation, cardiomegaly with central vascular congestion and small bilateral pleural effusions. Echocardiogram with Doppler study revealed an ejection fraction of 50-55%. Patient was initiated on IV Lasix, he does have a Maldonado catheter in place and is diuresing well. Past Medical History Past Medical History: Atrial Fibrillation, Cancer, Heart Failure, Hearing Disorder / Deafness, Hyperlipidemia, Hypertension, Musculoskeletal Disorder, Renal Disease Additional Past Medical History / Comment(s): HX C-DIFF 09-04-16. skin ca. psoriatic arthritis. uti, nephrotic syndrome. chronic back pain. DENIES GOUT. PAST HX OF MIGRAINES. HX anemia,iron infusion. patient states he is pre- diabetic. EDEMA .edward torn rotator cuffs(had a previous sx on rt side but injured it again) History of Any Multi-Drug Resistant Organisms: None Reported Past Surgical History: Back Surgery, Hernia Repair, Orthopedic Surgery Additional Past Surgical History / Comment(s): L4-5 LUMBAR FUSION-(total of 4 back surguries)NECK FUSION. RT ROTATOR CUFF," kidney bx-neg". Surgical scar from skin cancer/surgery on right side of head. MULT PAIN PROC, LAST 05/12/16. Past Anesthesia/Blood Transfusion Reactions: No Reported Reaction Smoking Status: Never smoker - Past Family History Father Additional Family Medical History / Comment(s): as a results of burn injuries in work related accident Mother Additional Family Medical History / Comment(s): at age 84 from heart problems Sister(s) Family Medical History: Cancer Additional Family Medical History / Comment(s): mother-- HTN. brother-- Diabetes, kidney problems Medications and Allergies Home Medications Medication Instructions Recorded Confirmed Type Ergocalciferol [Vitamin D2 50,000 units PO DEAL 01/16/14 10/26/16 History (JOANN)] Leflunomide [Arava] 20 mg PO AC-LUNCH 01/16/14 10/26/16 History Ranitidine HCl [Zantac] 150 mg PO BID 01/16/14 10/26/16 History Sod Phos Di, [place]/K Phos [place] 250 mg PO BID 01/16/14 10/26/16 History [Phospha 250 Neutral Tablet] Tamsulosin HCl [Flomax] 0.4 mg PO BID 01/16/14 10/26/16 History Propranolol LA [Inderal LA] 60 mg PO AC-LUNCH 12/17/14 10/26/16 History Calcium Carbonate [Calcium] 600 mg PO DAILY 03/25/16 10/26/16 History predniSONE 10 mg PO DAILY 03/25/16 10/26/16 History Atorvastatin [Lipitor] 40 mg PO HS 04/18/16 10/26/16 History [place]-3 Fatty Acids/Fish Oil [Fish 1 cap PO DAILY 04/18/16 10/26/16 History Oil 1,000 mg Softgel] Tacrolimus [Prograf] 1 mg PO TID 08/19/16 10/26/16 History Gabapentin [Neurontin] 600 mg PO BID@1600,2200 09/04/16 10/26/16 History Allopurinol [Zyloprim] 100 mg PO BID 10/26/16 10/26/16 History Bumetanide 2 mg PO TID 10/26/16 10/26/16 History Enalapril [Vasotec] 20 mg PO DAILY 10/26/16 10/26/16 History Ferrous Sulfate [Feosol] 325 mg PO DAILY 10/26/16 10/26/16 History L.acidoph,Paracasei, B.lactis 1 cap PO DAILY 10/26/16 10/26/16 History [Probiotic] Metolazone [Zaroxolyn] 5 mg PO BID 10/26/16 10/26/16 History Multivitamins, Thera [Multivitamin 1 tab PO DAILY 10/26/16 10/26/16 History (formulary)] traMADol HCL [Ultram] 50 mg PO BID PRN 10/26/16 10/26/16 History Allergies Allergy/AdvReac Type Severity Reaction Status Date / Time sumatriptan [From Imitrex] Allergy Swelling Verified 10/26/16 15:04 sumatriptan succinate Allergy Swelling Verified 10/26/16 15:04 [From Imitrex] cephalexin [From Keflex] AdvReac Diarrhea Verified 10/26/16 15:04 Physical Exam Vitals: Vital Signs Temp Pulse Pulse Resp BP BP Pulse Ox 10/27/16 04:00 97.6 F 68 12 149/91 99 10/27/16 00:00 97.0 F L 72 12 139/85 99 10/26/16 20:00 96.1 F L 76 12 141/93 98 10/26/16 18:51 96.8 F L 77 18 174/94 99 10/26/16 17:52 97.2 F L 72 18 164/88 98 10/26/16 17:51 72 18 164/88 98 10/26/16 17:15 97.2 F L 75 18 171/95 97 10/26/16 16:45 97.1 F L 78 18 184/108 98 10/26/16 16:35 97.1 F L 79 18 180/101 99 10/26/16 15:29 52 L 18 119/82 96 10/26/16 14:26 97.7 F 72 23 142/65 92 L Intake and Output 10/26/16 10/27/16 10/27/16 22:59 06:59 14:59 Intake Total 330 30 Output Total 300 Balance 330 -270 Intake: IV 20 30 0.9 20 Invasive Line 1 20 10 Blood Product 310 Rc As-1 Unit 310 [id number] Output: Urine 300 Other: Voiding Method Urinal Indwelling Catheter Diaper Weight 121 kg PHYSICAL EXAMINATION: HEENT: Head is atraumatic, normocephalic. Pupils equal, round. Neck is supple. There is no elevated jugular venous pressure. HEART EXAMINATION: S1 and S2 irregularly irregular a systolic murmur is heard. CHEST EXAMINATION: Lungs reveal diminished air entry to the bases anteriorly. ABDOMEN: Soft, be's, nontender. Bowel sounds are heard. No organomegaly noted. EXTREMITIES: 2+ peripheral pulses with 2-3+ evidence of peripheral edema and no calf tenderness noted. NEUROLOGIC patient is awake, alert and oriented -2. . Results 10/27/16 02:43 10/27/16 02:43 Cardiac Enzymes 10/26/16 10/26/16 10/26/16 Range/Units 14:50 14:50 21:24 AST 26 (17-59) U/L CK-MB (CK-2) 2.2 (0.0-2.4) ng/mL Troponin I 0.079 H* 0.074 H* (0.000-0.034) ng/mL 10/27/16 Range/Units 02:43 AST (17-59) U/L CK-MB (CK-2) (0.0-2.4) ng/mL Troponin I 0.068 H* (0.000-0.034) ng/mL Coagulation 10/26/16 Range/Units 14:50 PT 10.3 (9.0-12.0) sec APTT 23.6 (22.0-30.0) sec CBC 10/26/16 10/27/16 Range/Units 14:50 02:43 WBC 7.9 6.1 (3.8-10.6) k/uL RBC 2.21 L 2.32 L (4.30-5.90) m/uL Hgb 6.9 L* D 7.2 L (13.0-17.5) gm/dL Hct 22.0 L 23.3 L (39.0-53.0) % Plt Count 188 171 (150-450) k/uL Comprehensive Metabolic Panel 10/26/16 10/27/16 Range/Units 14:50 02:43 Sodium 144 141 (137-145) mmol/L Potassium 4.3 4.0 (3.5-5.1) mmol/L Chloride 108 H 107 (98-107) mmol/L Carbon Dioxide 28 28 (22-30) mmol/L BUN 87 H* 89 H* (9-20) mg/dL Creatinine 2.59 H 2.50 H (0.66-1.25) mg/dL Glucose 116 H 114 H (74-99) mg/dL Calcium 8.3 L 8.3 L (8.4-10.2) mg/dL AST 26 (17-59) U/L ALT 25 (21-72) U/L Alkaline Phosphatase 121 (38-126) U/L Total Protein 5.1 L (6.3-8.2) g/dL Albumin 2.3 L (3.5-5.0) g/dL Current Medications Generic Name Dose Route Start Last Admin Trade Name Freq PRN Reason Stop Dose Admin Allopurinol 100 mg 10/27/16 09:00 10/27/16 08:42 Zyloprim PO 100 mg BID [facility] Administration Apixaban 2.5 mg 10/27/16 09:00 10/27/16 08:41 Eliquis PO 2.5 mg BID NEW Administration Aspirin 81 mg 10/28/16 09:00 Aspirin PO DAILY [facility] Atorvastatin Calcium 40 mg 10/27/16 21:00 Lipitor PO HS [facility] Calcium Carbonate/Glycine 500 mg 10/27/16 09:00 10/27/16 08:41 Tums PO 500 mg DAILY NEW Administration Docusate Sodium 100 mg 10/27/16 09:00 10/27/16 08:42 Colace PO 100 mg BID [facility] Administration Ergocalciferol 50,000 unit 10/31/16 09:00 Vitamin D2 PO DEAL [facility] Famotidine 20 mg 10/26/16 21:00 10/27/16 08:41 Pepcid PO 20 mg BID NEW Administration Ferrous Sulfate 325 mg 10/27/16 09:00 10/27/16 08:42 Feosol PO 325 mg DAILY NEW Administration Furosemide 40 mg 10/27/16 00:00 10/27/16 08:41 Lasix IV 40 mg Q8HR NEW Administration Gabapentin 600 mg 10/27/16 16:00 Neurontin PO BID@1600,2200 [facility] Isosorbide Mononitrate 30 mg 10/27/16 09:00 10/27/16 08:41 Imdur PO 30 mg DAILY [facility] Administration Lactobacillus Acidoph/[place] 1 each 10/27/16 09:00 10/27/16 08:43 Lactinex PO 1 each DAILY NEW Administration Leflunomide 20 mg 10/27/16 12:30 Arava PO AC-LUNCH [facility] Lisinopril 40 mg 10/27/16 09:00 10/27/16 08:45 Zestril PO 40 mg DAILY [facility] Administration Metolazone 5 mg 10/26/16 21:00 10/27/16 08:46 Zaroxolyn PO 5 mg BID [facility] Administration Nitroglycerin 1 inch 10/26/16 18:00 10/27/16 08:23 Nitro-Bid Oint TOPICAL Not Given QID [facility] Potassium Chloride 20 meq 10/27/16 09:00 10/27/16 08:43 K-Dur 20 PO 20 meq BID [facility] Administration Prednisone 10 mg 10/27/16 09:00 10/27/16 08:45 PO 10 mg DAILY [facility] Administration Propranolol HCl 60 mg 10/27/16 12:30 Inderal La PO AC-LUNCH [facility] Sodium Chloride 10 ml 10/26/16 21:00 10/27/16 08:46 Saline Flush IV 10 ml BID [facility] Administration Tacrolimus 1 mg 10/26/16 22:00 10/27/16 08:45 Prograf PO 1 mg TID [facility] Administration Tamsulosin HCl 0.4 mg 10/27/16 09:00 10/27/16 08:47 Flomax PO 0.4 mg BID [facility] Administration Tramadol HCl 50 mg 10/26/16 23:34 Ultram PO BID PRN Pain Intake and Output 10/26/16 10/27/16 10/27/16 22:59 06:59 14:59 Intake Total 330 30 Output Total 300 Balance 330 -270 Intake: IV 20 30 0.9 20 Invasive Line 1 20 10 Blood Product 310 Rc As-1 Unit 310 [id number] Output: Urine 300 Other: Voiding Method Urinal Indwelling Catheter Diaper Weight 121 kg 10/27/16 02:43 10/27/16 02:43 EKG Interpretations (text) EKG shows atrial fibrillation with a controlled ventricular response, right bundle branch block pattern. Assessment and Plan Plan: Assessment and plan #1 diastolic congestive heart failure acute on chronic #2 anemia requiring blood transfusion #3 acute on chronic renal failure #4 hypertension #5 chronic persistent atrial fibrillation #8 borderline diabetes #9 hyperlipidemia #10 prior CVA #11 recent admission with C. diff Plan We will obtain an echocardiogram with Doppler study. Continue current dose of IV Lasix monitoring intake and output closely. Decrease aspirin to 81 mg daily. Further recommendations to follow. DNP note has been reviewed, I agree with a documented findings and plan of care. Patient was seen and examined.
--- NOTE | 2016-10-27 10:26 | P.NPCON ---
History of Present Illness - Reason for Consult chronic renal failure - History of Present Illness Reason for consultation: Acute kidney injury on chronic kidney disease History of present illness: Patient is a 76-year-old male seen in renal consultation for acute kidney injury on chronic kidney disease. Patient has chronic kidney disease stage III secondary to biopsy-proven FSGS with baseline creatinine near 1.7. His creatinine was 2.59 on admission and is 2.50 today. Patient does have history of diastolic CHF and was maintained on Bumex as an outpatient. He still has significant edema and is also dyspneic especially with exertion. He is currently maintained on IV Lasix 40 mg 3 times daily along with metolazone and is diuresing well. No vomiting or diarrhea. He was noted to have a hemoglobin of 6.9 for which she was called by his PCP and advised to come to the hospital. He did receive 1 unit of blood transmission yesterday and hemoglobin this morning is 7.2. He has a Maldonado catheter in place. Oral intake is fair. Denies chest pain. He is maintained on Prograf as well as prednisone for FSGS and follow salt of [facility]. Vital signs are stable. General: The patient appeared well nourished and normally developed. HEENT: Head exam is unremarkable. Neck is without jugular venous distension. LUNGS: Scattered rhonchi. Breath sounds decreased. HEART: Rate and Rhythm are regular. First and second heart sounds normal. No murmurs, rubs or gallops. ABDOMEN: Abdominal exam reveals normal bowel sounds. Non-tender and non- distended. No evidence of peritonitis. EXTREMITITES: 2+ edema. Past Medical History Past Medical History: Atrial Fibrillation, Cancer, Heart Failure, Hearing Disorder / Deafness, Hyperlipidemia, Hypertension, Musculoskeletal Disorder, Renal Disease Additional Past Medical History / Comment(s): HX C-DIFF 09-04-16. skin ca. psoriatic arthritis. uti, nephrotic syndrome. chronic back pain. DENIES GOUT. PAST HX OF MIGRAINES. HX anemia,iron infusion. patient states he is pre- diabetic. EDEMA .edward torn rotator cuffs(had a previous sx on rt side but injured it again) History of Any Multi-Drug Resistant Organisms: None Reported Past Surgical History: Back Surgery, Hernia Repair, Orthopedic Surgery Additional Past Surgical History / Comment(s): L4-5 LUMBAR FUSION-(total of 4 back surguries)NECK FUSION. RT ROTATOR CUFF," kidney bx-neg". Surgical scar from skin cancer/surgery on right side of head. MULT PAIN PROC, LAST 05/12/16. Past Anesthesia/Blood Transfusion Reactions: No Reported Reaction Smoking Status: Never smoker - Past Family History Father Additional Family Medical History / Comment(s): as a results of burn injuries in work related accident Mother Additional Family Medical History / Comment(s): at age 84 from heart problems Sister(s) Family Medical History: Cancer Additional Family Medical History / Comment(s): mother-- HTN. brother-- Diabetes, kidney problems Medications and Allergies Home Medications Medication Instructions Recorded Confirmed Type Ergocalciferol [Vitamin D2 50,000 units PO DEAL 01/16/14 10/26/16 History (DRISDOL)] Leflunomide [Arava] 20 mg PO AC-LUNCH 01/16/14 10/26/16 History Ranitidine HCl [Zantac] 150 mg PO BID 01/16/14 10/26/16 History Sod Phos Di, [place]/K Phos [place] 250 mg PO BID 01/16/14 10/26/16 History [Phospha 250 Neutral Tablet] Tamsulosin HCl [Flomax] 0.4 mg PO BID 01/16/14 10/26/16 History Propranolol LA [Inderal LA] 60 mg PO AC-LUNCH 12/17/14 10/26/16 History Calcium Carbonate [Calcium] 600 mg PO DAILY 03/25/16 10/26/16 History predniSONE 10 mg PO DAILY 03/25/16 10/26/16 History Atorvastatin [Lipitor] 40 mg PO HS 04/18/16 10/26/16 History [place]-3 Fatty Acids/Fish Oil [Fish 1 cap PO DAILY 04/18/16 10/26/16 History Oil 1,000 mg Softgel] Tacrolimus [Prograf] 1 mg PO TID 08/19/16 10/26/16 History Gabapentin [Neurontin] 600 mg PO BID@1600,2200 09/04/16 10/26/16 History Allopurinol [Zyloprim] 100 mg PO BID 10/26/16 10/26/16 History Bumetanide 2 mg PO TID 10/26/16 10/26/16 History Enalapril [Vasotec] 20 mg PO DAILY 10/26/16 10/26/16 History Ferrous Sulfate [Feosol] 325 mg PO DAILY 10/26/16 10/26/16 History L.acidoph,Paracasei, B.lactis 1 cap PO DAILY 10/26/16 10/26/16 History [Probiotic] Metolazone [Zaroxolyn] 5 mg PO BID 10/26/16 10/26/16 History Multivitamins, Thera [Multivitamin 1 tab PO DAILY 10/26/16 10/26/16 History (formulary)] traMADol HCL [Ultram] 50 mg PO BID PRN 10/26/16 10/26/16 History Allergies Allergy/AdvReac Type Severity Reaction Status Date / Time sumatriptan [From Imitrex] Allergy Swelling Verified 10/26/16 15:04 sumatriptan succinate Allergy Swelling Verified 10/26/16 15:04 [From Imitrex] cephalexin [From Keflex] AdvReac Diarrhea Verified 10/26/16 15:04 Physical Exam Vitals: Vital Signs Temp Pulse Pulse Resp BP BP Pulse Ox 10/27/16 04:00 97.6 F 68 12 149/91 99 10/27/16 00:00 97.0 F L 72 12 139/85 99 10/26/16 20:00 96.1 F L 76 12 141/93 98 10/26/16 18:51 96.8 F L 77 18 174/94 99 10/26/16 17:52 97.2 F L 72 18 164/88 98 10/26/16 17:51 72 18 164/88 98 10/26/16 17:15 97.2 F L 75 18 171/95 97 10/26/16 16:45 97.1 F L 78 18 184/108 98 10/26/16 16:35 97.1 F L 79 18 180/101 99 10/26/16 15:29 52 L 18 119/82 96 10/26/16 14:26 97.7 F 72 23 142/65 92 L Intake and Output 10/26/16 10/27/16 10/27/16 22:59 06:59 14:59 Intake Total 330 30 Output Total 300 Balance 330 -270 Intake: IV 20 30 0.9 20 Invasive Line 1 20 10 Blood Product 310 Rc As-1 Unit 310 [id number] Output: Urine 300 Other: Voiding Method Urinal Indwelling Catheter Diaper Weight 121 kg Results - Lab Results Most recent lab results Calcium 8.3 mg/dL (8.4-10.2) L 10/27/16 02:43 10/27/16 02:43 10/27/16 02:43 Assessment and Plan Plan: Assessment: #1. Nonoliguric acute kidney injury secondary to ATN secondary to acute anemia as well as cardiorenal syndrome. Creatinine 2.59 on admission and is 2.5 today. #2. 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 #3. Diastolic CHF. #4. Volume overload. #5. Acute anemia status post blood transfusion. Hemoglobin 7.2 this morning. Plan: I will increase Lasix to 60 mg IV every 8 hours. Maintain metolazone 5 mg twice daily. Low-salt and 1.5 L fluid restriction. Follow up echocardiogram results. Maintain Prograf and prednisone. Strict I's and O's and daily weights. Check iron studies. Repeat electrolytes in the morning. Thank you for the consultation. I will continue to follow the patient with you during his hospital stay.
[2016-10-27 11:15] LABS: % Iron Saturation 21.8 % (20-50)
[2016-10-27] MEDS: PROPRANOLOL LA 60 MG CAP.SA.24H PO SCH (11:51)
[2016-10-27] MEDS: LEFLUNOMIDE 20 MG TAB PO SCH (11:51)
[2016-10-27] MEDS: GABAPENTIN 300 MG CAP PO SCH ×2 (17:05→22:38)
[2016-10-27] MEDS: traMADol 50 MG TAB PO PRN (17:13)
[2016-10-27] MEDS: FUROSEMIDE 10 MG/ML 10 ML VIAL IV SCH (17:14)
[2016-10-27] MEDS: ATORVASTATIN 40 MG TAB PO SCH (22:38)
--- NOTE | 2016-10-27 22:44 | HP ---
DATE OF ADMISSION: Patient is a pleasant 76-year-old gentleman who came in because of shortness of breath and patient has been taking Bumex at home. Patient was also complaining of orthopnea and PND. Patient was found to have pulmonary edema along with highly elevated BNP. Patient does have history of ( ) for which Nephrology was consulted and patient was started on 60 IV b.i.d. of Lasix at this point of time. Patient was having lower extremity edema. Patient denied any fever or chills. Patient denied any nausea or vomiting. Patient was treated for C difficile colitis during his previous hospitalization. REVIEW OF SYSTEMS: CONSTITUTIONAL: No fever, no malaise, no fatigue. HEENT: No recent visual problems or hearing problems. Denied any sore throat. CARDIOVASCULAR: As described in HPI. PULMONARY: No shortness of breath, no cough, no hemoptysis. GASTROINTESTINAL: No diarrhea, no nausea, no vomiting, no abdominal pain. Normoactive bowel sounds. NEUROLOGICAL: No headaches, no weakness, no numbness. HEMATOLOGICAL: Denies any bleeding or petechiae. GENITOURINARY: Denies any burning micturition, frequency, or urgency. MUSCULOSKELETAL/RHEUMATOLOGICAL: Denies any joint pain, swelling, or any muscle pain. ENDOCRINE: Denies any polyuria or polydipsia. The rest of the 14 point review of systems is negative. PAST MEDICAL HISTORY: 1. Atrial fibrillation. 2. Congestive heart failure with chronic diastolic dysfunction. 3. Hearing problems. 4. Benign prostatic hypertrophy. 5. Hyperlipidemia. 6. 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 PAST SURGICAL HISTORY: 1. Back surgery. 2. Hernia repair. 3. Orthopedic surgery. 4. Lumbar fusion surgery. FAMILY HISTORY: Father a result of ( ) injuries. Mother had some heart problems. Sister had cancer, unknown etiology. Brother had diabetes mellitus and kidney problems. Home medications include: 1. Ergocalciferol. 2. Leflunomide. 3. Ranitidine. 4. Sodium phosphate. 5. Tamsulosin. 6. Propranolol. 7. Calcium carbonate. 8. Prednisone. 9. Atorvastatin. 10. [place]-3 fatty acids ( ) 11. Tacrolimus. 12. Gabapentin. 13. Allopurinol. 14. Bumex. 15. Enalapril. 16. Ferrous sulfate. 17. Metolazone. 18. Multivitamin. 19. Tramadol. ALLERGIES: 1. SUMATRIPTAN. 2. CEPHALEXIN. PHYSICAL EXAMINATION: Temperature 97.6, pulse of 68, respiratory rate of 12. Blood pressure is 149/91. Saturating at 99% on 3 L of oxygen by nasal cannula. GENERAL: Morbidly obese. Alert and oriented x3. HEENT: Pupils are round and equally reacting to light. EOMI. No scleral icterus. No conjunctival pallor. Normocephalic, atraumatic. No pharyngeal erythema. No thyromegaly. CARDIOVASCULAR: S1, S2 present. Patient does have ( ) JVD as well as S3. No other murmurs or rubs are appreciated. Patient does have extremity edema. PULMONARY: Bibasilar crackles are appreciated. ABDOMEN: Soft, nontender, nondistended, normoactive bowel sounds. No palpable organomegaly. MUSCULOSKELETAL: No joint swelling or deformity. EXTREMITIES: Patient does have extremity edema. NEUROLOGICAL: Gross neurological examination did not reveal any focal deficits. SKIN: No rashes. LABORATORY DATA, SIGNIFICANT ONES: Patient's hemoglobin is 7.2 without any acute GI bleed. Patient is already on iron, folate, calcium supplementation at home. BUN of 89, creatinine 2.50. Glucose of 114. Ferritin 1380. Two sets of troponins are 0.06, stable at that level, without any chest pain. Symptoms are secondary to CKD. Baseline creatinine appears to be around 1.5. Chest x-ray did show pulmonary edema. ASSESSMENT AND PLAN: 1. Non-oliguric acute kidney injury, mostly related to prerenal azotemia from congestive heart failure, expected to improve with IV Lasix. Patient may have a component of cardiorenal syndrome. 2. Chronic kidney disease, stage III, secondary to focal segmental glomerulosclerosis, baseline creatinine of 1.7. 3. Congestive heart failure, chronic diastolic dysfunction, acute exacerbation. 4. Acute hypoxic respiratory failure secondary to congestive heart failure exacerbation. 5. Hypertension. 6. Hyperlipidemia. 7. Morbid obesity. 8. Elevated troponin secondary to chronic kidney disease. For above-mentioned chronic medical problems, I will go ahead and continue his home medications, continue with IV Lasix, strict I&O. Kidney function monitoring. For focal segmental glomerulosclerosis, will continue with immunosuppressive therapy.
[2016-10-28] MEDS: FUROSEMIDE 10 MG/ML 10 ML VIAL IV SCH ×2 (00:48→09:28)
[2016-10-28 07:06] LABS: Calcium 8.2 mg/dL (8.4-10.2)
[2016-10-28] MEDS: APIXABAN 2.5 MG TABLET PO SCH ×2 (09:28→20:33)
[2016-10-28] MEDS: CALCIUM CARBONATE 500 MG CHEWABLE PO SCH (09:28)
[2016-10-28] MEDS: DOCUSATE 100 MG CAP PO SCH ×2 (09:29→20:34)
[2016-10-28] MEDS: LISINOPRIL 20 MG TAB PO SCH (09:29)
[2016-10-28] MEDS: TAMSULOSIN 0.4 MG CAP.ER.24H PO SCH ×2 (09:29→20:35)
[2016-10-28] MEDS: ALLOPURINOL 100 MG TAB PO SCH ×2 (09:30→20:33)
[2016-10-28] MEDS: METOLAZONE 5 MG TAB PO SCH ×2 (09:30→20:34)
[2016-10-28] MEDS: FAMOTIDINE 20 MG TAB PO SCH (09:30)
[2016-10-28] MEDS: TACROLIMUS 1 MG CAP PO SCH ×3 (09:30→20:36)
[2016-10-28] MEDS: POTASSIUM CHLORIDE ER 20 MEQ TAB.ER PO SCH ×2 (09:30→20:34)
[2016-10-28] MEDS: LACTOBACILLUS ACIDOPH & BULGAR 1 EACH PACKET PO SCH (09:30)
[2016-10-28] MEDS: NITROGLYCERIN OINT 1 INCH/GM PACKET TOPICAL SCH ×4 (09:30→20:36)
[2016-10-28] MEDS: FERROUS SULFATE 325 MG TAB PO SCH (09:31)
[2016-10-28] MEDS: ASPIRIN 81 MG CHEW PO SCH (09:31)
[2016-10-28] MEDS: ISOSORBIDE MONONITRATE ER 30 MG TAB.ER.24H PO SCH (09:31)
[2016-10-28] MEDS: predniSONE 10 MG TAB PO SCH (09:31)
[2016-10-28] MEDS: traMADol 50 MG TAB PO PRN (09:33)
[2016-10-28 11:27] LABS: Anisocytosis Slight; Basophils % (A) 1 %; CHCM 29.9; Eosinophils # (A) 0.2 k/uL (0-0.7); Eosinophils % (A) 4 %; HCT 24.6 % (39.0-53.0); HDW 2.86; HGB 7.8 gm/dL (13.0-17.5); Hypochromasia Marked; Luc # (Auto) 0.19; Luc % (Auto) 3; Lymphocytes # (A) 0.5 k/uL (1.0-4.8); Lymphocytes % (A) 8 %; MCHC 31.6 g/dL (31.0-37.0); MCV 101.2 fL (80.0-100.0); Macrocytosis Moderate; Mean Platelet Volume 8.1; Monocytes # (A) 0.4 k/uL (0-1.0); Monocytes % (A) 7 %; Neutrophils # (A) 4.7 k/uL (1.3-7.7); Neutrophils % (A) 78 %; RBC 2.43 m/uL (4.30-5.90); WBC (Perox) 6.46
--- NOTE | 2016-10-28 12:03 | P.PN ---
Subjective Patient is seen in follow-up for acute kidney injury on chronic kidney disease. 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 His creatinine is up to 2.7 today. He is maintained on IV diuretics at this time and urine output overnight was about 800 mL. He was also anemic on admission and received a blood transfusion. Hemoglobin is 7.8 this morning. He still a significant edema. No vomiting. Does have loose bowel movements. Oral intake is fair. Vital signs are stable. General: The patient appeared well nourished and normally developed. HEENT: Head exam is unremarkable. Neck is without jugular venous distension. LUNGS: Scattered rhonchi at bases. Breath sounds decreased. HEART: Rate and Rhythm are regular. First and second heart sounds normal. No murmurs, rubs or gallops. ABDOMEN: Abdominal exam reveals normal bowel sounds. Non-tender and non- distended. No evidence of peritonitis. EXTREMITITES: 2+ edema. Objective - Vital Signs Vital signs: Vital Signs Temp 96.8 F L 10/28/16 11:31 Pulse 96 10/28/16 11:34 Resp 18 10/28/16 11:34 BP 134/77 10/28/16 11:31 Pulse Ox 100 10/28/16 11:31 Intake & Output 10/27/16 10/28/16 10/28/16 18:59 06:59 18:59 Intake Total 956 180 Output Total 1600 500 800 Balance -117 -500 -445 Weight 121 kg 120 kg Intake: Oral 956 180 Output: Urine 1600 500 800 Uretheral ([place]) 800 Other: Voiding Method Indwelling Catheter Indwelling Catheter Indwelling Catheter # Bowel Movements 1 1 - Labs CBC & Chem 7: 10/28/16 06:04 10/28/16 06:04 Labs: Abnormal Lab Results - Last 24 Hours (Table) 10/27/16 10/28/16 10/28/16 Range/Units 02:43 06:04 06:04 RBC 2.43 L (4.30-5.90) m/uL Hgb 7.8 L (13.0-17.5) gm/dL Hct 24.6 L (39.0-53.0) % MCV 101.2 H (80.0-100.0) fL RDW 18.0 H (11.5-15.5) % Lymphocytes # 0.5 L (1.0-4.8) k/uL BUN 98 H* (9-20) mg/dL Creatinine 2.70 H (0.66-1.25) mg/dL Calcium 8.2 L (8.4-10.2) mg/dL Iron 44 L (49-181) ug/dL TIBC 202 L (261-462) ug/dL Ferritin 1380 H (18-464) ng/mL Assessment and Plan Plan: Assessment: #1. Nonoliguric acute kidney injury secondary to ATN secondary to acute anemia as well as cardiorenal syndrome. Creatinine 0.7 today. #2. 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 #3. Diastolic CHF. #4. Volume overload. #5. Acute anemia status post blood transfusion. Hemoglobin 7.8 this morning. Iron replete. Plan: Discontinue IV push Lasix and start Lasix drip at 10 mL an hour. Maintain metolazone 5 mg twice daily. Low-salt and 1.5 L fluid restriction. Follow up echocardiogram results. Maintain Prograf and prednisone. Strict I's and O's and daily weights. Start Aranesp. Repeat electrolytes in the morning.
[2016-10-28] MEDS: LEFLUNOMIDE 20 MG TAB PO SCH (12:19)
[2016-10-28] MEDS: PROPRANOLOL LA 60 MG CAP.SA.24H PO SCH (12:19)
[2016-10-28] MEDS: FUROSEMIDE 250 MG in SODIUM CHLORIDE 0.9% 225 ML IVP SCH (12:19)
[2016-10-28 12:27] LABS: Glucose,Whole Blood 156 mg/dL (75-99)
[2016-10-28] MEDS ORDERED: IV VANCOMYCIN PER PHARMACY 1 EACH MISC MISCELLANE PRN (12:50)
[2016-10-28] MEDS: DARBEPOETIN ALFA 40 MCG/0.4 ML SYRINGE SQ SCH (13:54)
[2016-10-28] MEDS ORDERED: VANCOMYCIN 2,000 MG in SODIUM CHLORIDE 0.9% 500 ML IVPB ONE (14:00)
--- NOTE | 2016-10-28 15:38 | P.PN ---
Subjective Principal diagnosis: Anemia, congestive heart failure This is a pleasant 76-year-old gentleman with known history of hypertension, hyperlipidemia, cirrhotic arthritis, chronic renal failure who follows with Dr. Diallo and at [facility] for his kidneys, patient had a recent hospitalization with C. diff, also has history of CVA, chronic persistent atrial fibrillation. Patient was seen in the office yesterday by Dr. Tellez, he also has been being monitored closely as an outpatient because his hemoglobin has been low. It was noted that his hemoglobin dropped below 7 and he was recommended to come to the hospital for further admission. Patient did receive blood transfusion, hemoglobin today is 7.8. Creatinine 2.7. He is currently on IV Lasix drip and is diuresing well. Still has a considerable amount of edema, and states that he feels his breathing is about the same. Objective - Vital Signs Vital signs: Vital Signs Temp 96.8 F L 10/28/16 11:31 Pulse 96 10/28/16 15:22 Resp 18 10/28/16 15:22 BP 134/77 10/28/16 11:31 Pulse Ox 100 10/28/16 11:31 Intake & Output 10/27/16 10/28/16 10/28/16 18:59 06:59 18:59 Intake Total 956 300 Output Total 1600 500 800 Balance -644 -500 -500 Weight 121 kg 120 kg Intake: Oral 956 300 Output: Urine 1600 500 800 Uretheral ([place]) 800 Other: Voiding Method Indwelling Catheter Indwelling Catheter Indwelling Catheter # Bowel Movements 1 1 - Exam PHYSICAL EXAMINATION: HEENT: Head is atraumatic, normocephalic. Pupils equal, round. Neck is supple. There is no elevated jugular venous pressure. HEART EXAMINATION: S1 and S2 irregularly irregular a systolic murmur is heard. CHEST EXAMINATION: Lungs reveal diminished air entry to the bases anteriorly. ABDOMEN: Soft, be's, nontender. Bowel sounds are heard. No organomegaly noted. EXTREMITIES: 2+ peripheral pulses with 2-3+ evidence of peripheral edema and no calf tenderness noted. NEUROLOGIC patient is awake, alert and oriented -2. . - Labs CBC & Chem 7: 10/28/16 06:04 10/28/16 06:04 Labs: Abnormal Lab Results - Last 24 Hours (Table) 10/28/16 10/28/16 10/28/16 Range/Units 06:04 06:04 10:45 RBC 2.43 L (4.30-5.90) m/uL Hgb 7.8 L (13.0-17.5) gm/dL Hct 24.6 L (39.0-53.0) % MCV 101.2 H (80.0-100.0) fL RDW 18.0 H (11.5-15.5) % Lymphocytes # 0.5 L (1.0-4.8) k/uL BUN 98 H* (9-20) mg/dL Creatinine 2.70 H (0.66-1.25) mg/dL POC Glucose (mg/dL) (75-99) mg/dL Calcium 8.2 L (8.4-10.2) mg/dL C. difficile (EIA) Intrp Positive A (Negative) 10/28/16 Range/Units 11:47 RBC (4.30-5.90) m/uL Hgb (13.0-17.5) gm/dL Hct (39.0-53.0) % MCV (80.0-100.0) fL RDW (11.5-15.5) % Lymphocytes # (1.0-4.8) k/uL BUN (9-20) mg/dL Creatinine (0.66-1.25) mg/dL POC Glucose (mg/dL) 156 H (75-99) mg/dL Calcium (8.4-10.2) mg/dL C. difficile (EIA) Intrp (Negative) Assessment and Plan Plan: Assessment and plan #1 diastolic congestive heart failure acute on chronic #2 anemia requiring blood transfusion #3 acute on chronic renal failure #4 hypertension #5 chronic persistent atrial fibrillation #8 borderline diabetes #9 hyperlipidemia #10 prior CVA #11 recent admission with C. diff Plan We will recommend to continue Lasix drip, continue to monitor intake and output along with daily weights and daily lytes BUN and creatinine. DNP note has been reviewed, I agree with a documented findings and plan of care. Patient was seen and examined.
[2016-10-28] MEDS: GABAPENTIN 300 MG CAP PO SCH ×2 (15:40→20:35)
[2016-10-28] MEDS: ATORVASTATIN 40 MG TAB PO SCH (20:33)
--- NOTE | 2016-10-28 20:40 | PN ---
Patient is being treated for congestive heart failure. Patient is on IV Lasix drip at this point in time. Nephrology is following the patient. Patient was found to have C difficile. Patient will be started on oral vancomycin. Patient does not have any signs or symptoms of GI bleed yet. Patient is on Eliquis, which will be continued. Patient does have history of atrial fibrillation, for which patient is on Eliquis at this time. Patient received 1 unit of blood transfusion yesterday. REVIEW OF SYSTEMS: GENERAL: Patient is feeling much better. CONSTITUTIONAL: No fever, no malaise, no fatigue. HEENT: No recent visual problems or hearing problems. Denied any sore throat. CARDIOVASCULAR: No chest pain, orthopnea, PND, no palpitations, no syncope. PULMONARY: Patient's respiratory status improved significantly. GASTROINTESTINAL: No diarrhea, no nausea, no vomiting, no abdominal pain. Normoactive bowel sounds. NEUROLOGICAL: No headaches, no weakness, no numbness. HEMATOLOGICAL: Denies any bleeding or petechiae. GENITOURINARY: Denies any burning micturition, frequency, or urgency. MUSCULOSKELETAL/RHEUMATOLOGICAL: Denies any joint pain, swelling, or any muscle pain. ENDOCRINE: Denies any polyuria or polydipsia. The rest of the 14 point review of systems is negative. Medications were reviewed. Medication changes as mentioned in the interval history. PHYSICAL EXAMINATION: VITAL SIGNS: Temperature 96.8, pulse of 96, respiratory rate of 18. Blood pressure 134/77. Saturating at 100% now on room air. GENERAL: The patient is alert and oriented x3, not in any acute distress. Well developed, well nourished. HEENT: Pupils are round and equally reacting to light. EOMI. No scleral icterus. No conjunctival pallor. Normocephalic, atraumatic. No pharyngeal erythema. No thyromegaly. CARDIOVASCULAR: S1 and S2 present. No murmurs, rub. S3 gallop was heard. PULMONARY: Patient does have crackles bilaterally. Patient does have elevated JVD. ABDOMEN: Soft, nontender, nondistended, normoactive bowel sounds. No palpable organomegaly. MUSCULOSKELETAL: No joint swelling or deformity. EXTREMITIES: Bilateral lower extremity 2+ pitting pedal edema. NEUROLOGICAL: Gross neurological examination did not reveal any focal deficits. SKIN: No rashes. LABORATORY DATA: Significant for hemoglobin of 7.8 ( ) increase in hemoglobin is secondary to hemoconcentration effect from diuretic therapy. Creatinine 2.7, which has gone up from 2.5 yesterday. BUN of 98. ASSESSMENT AND PLAN: 1. Congestive heart failure with chronic diastolic dysfunction with acute exacerbation and acute hypoxic respiratory failure secondary to that. Continue with Lasix drip. 2. Clostridium difficile colitis, recurrent. Patient will be started on oral vancomycin. 3. Congestive heart failure, chronic diastolic dysfunction, leading to acute hypoxic respiratory failure. 4. Non-oliguric acute tubular necrosis, prerenal azotemia secondary to congestive heart failure. Patient has CKD, stage III, from focal segmental glomerulosclerosis, for which patient is on immunosuppressant therapy, which will be continued ( ) prednisone. 5. Hypertension. 6. Hyperlipidemia. 7. Morbid obesity, for which we will continue with his home medications. 8. Elevated troponin secondary to chronic kidney disease. Possibility of type I ischemia is low.
[2016-10-29 07:32] LABS: Potassium 3.8 mmol/L (3.5-5.1)
[2016-10-29] MEDS: traMADol 50 MG TAB PO PRN (08:12)
[2016-10-29] MEDS: TAMSULOSIN 0.4 MG CAP.ER.24H PO SCH ×2 (08:13→20:48)
[2016-10-29] MEDS: LACTOBACILLUS ACIDOPH & BULGAR 1 EACH PACKET PO SCH (08:13)
[2016-10-29] MEDS: FERROUS SULFATE 325 MG TAB PO SCH (08:13)
[2016-10-29] MEDS: METOLAZONE 5 MG TAB PO SCH ×2 (08:13→20:47)
[2016-10-29] MEDS: POTASSIUM CHLORIDE ER 20 MEQ TAB.ER PO SCH ×2 (08:13→20:48)
[2016-10-29] MEDS: APIXABAN 2.5 MG TABLET PO SCH ×2 (08:13→20:47)
[2016-10-29] MEDS: DOCUSATE 100 MG CAP PO SCH ×2 (08:14→20:47)
[2016-10-29] MEDS: ASPIRIN 81 MG CHEW PO SCH (08:14)
[2016-10-29] MEDS: NITROGLYCERIN OINT 1 INCH/GM PACKET TOPICAL SCH ×4 (08:14→20:49)
[2016-10-29] MEDS: LISINOPRIL 20 MG TAB PO SCH (08:14)
[2016-10-29] MEDS: ISOSORBIDE MONONITRATE ER 30 MG TAB.ER.24H PO SCH (08:14)
[2016-10-29] MEDS: predniSONE 10 MG TAB PO SCH (08:14)
[2016-10-29] MEDS: CALCIUM CARBONATE 500 MG CHEWABLE PO SCH (08:14)
[2016-10-29] MEDS: TACROLIMUS 1 MG CAP PO SCH ×3 (08:14→20:48)
[2016-10-29] MEDS: FAMOTIDINE 20 MG TAB PO SCH (08:14)
[2016-10-29] MEDS: ALLOPURINOL 100 MG TAB PO SCH ×2 (08:18→20:47)
[2016-10-29] MEDS: FUROSEMIDE 250 MG in SODIUM CHLORIDE 0.9% 225 ML IVP SCH (09:45)
--- NOTE | 2016-10-29 10:33 | P.PN ---
Subjective Patient is seen in follow-up for acute kidney injury on chronic kidney disease. 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 His creatinine is up to 2.8 today. He is maintained on Lasix drip at this time and urine output overnight in the last 24 hours was near 4 L. He was also anemic on admission and received a blood transfusion. Hemoglobin is 7.8 as of yesterday. He still a significant edema. No vomiting. Does have loose bowel movements but none today. Noted to be C. diff positive. Oral intake is fair. Vital signs are stable. General: The patient appeared well nourished and normally developed. HEENT: Head exam is unremarkable. Neck is without jugular venous distension. LUNGS: Scattered rhonchi at bases. Breath sounds decreased. HEART: Rate and Rhythm are regular. First and second heart sounds normal. No murmurs, rubs or gallops. ABDOMEN: Abdominal exam reveals normal bowel sounds. Non-tender and non- distended. No evidence of peritonitis. EXTREMITITES: 2+ edema. Objective - Vital Signs Vital signs: Vital Signs Temp 98.0 F 10/29/16 08:00 Pulse 91 10/29/16 08:00 Resp 20 10/29/16 08:00 BP 132/68 10/29/16 08:00 Pulse Ox 95 10/29/16 08:00 Intake & Output 10/28/16 10/29/16 10/29/16 18:59 06:59 18:59 Intake Total 550 150 394.333 Output Total 1550 2375 1100 Balance -1000 -5885 -705.667 Weight 118.5 kg Intake: IV 90 0.9 90 Intake, IV Titration 60 214.333 Amount Furosemide 250 mg In 60 214.333 Sodium Chloride 0.9% 225 ml @ 10 MG/HR 10 mls/hr IVP .Q24H [facility] Rx#: [id number] Oral 550 180 Output: Urine 1550 2375 1100 Uretheral ([place]on[place]) 1550 1275 1100 Other: Voiding Method Indwelling Catheter Indwelling Catheter Indwelling Catheter # Voids 1 # Bowel Movements 1 - Labs CBC & Chem 7: 10/28/16 06:04 10/29/16 06:03 Labs: Abnormal Lab Results - Last 24 Hours (Table) 10/28/16 10/28/16 10/28/16 Range/Units 06:04 10:45 11:47 RBC 2.43 L (4.30-5.90) m/uL Hgb 7.8 L (13.0-17.5) gm/dL Hct 24.6 L (39.0-53.0) % MCV 101.2 H (80.0-100.0) fL RDW 18.0 H (11.5-15.5) % Lymphocytes # 0.5 L (1.0-4.8) k/uL BUN (9-20) mg/dL Creatinine (0.66-1.25) mg/dL POC Glucose (mg/dL) 156 H (75-99) mg/dL Calcium (8.4-10.2) mg/dL C. difficile (EIA) Intrp Positive A (Negative) 10/29/16 Range/Units 06:03 RBC (4.30-5.90) m/uL Hgb (13.0-17.5) gm/dL Hct (39.0-53.0) % MCV (80.0-100.0) fL RDW (11.5-15.5) % Lymphocytes # (1.0-4.8) k/uL BUN 92 H* (9-20) mg/dL Creatinine 2.80 H (0.66-1.25) mg/dL POC Glucose (mg/dL) (75-99) mg/dL Calcium 8.0 L (8.4-10.2) mg/dL C. difficile (EIA) Intrp (Negative) Assessment and Plan Plan: Assessment: #1. Nonoliguric acute kidney injury secondary to ATN secondary to acute anemia as well as cardiorenal syndrome. Creatinine 2.8 today. #2. 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 #3. Diastolic CHF. #4. Volume overload. Improving. #5. Acute anemia status post blood transfusion. Hemoglobin 7.8 as of yesterday. Iron replete. #6. C. diff colitis on oral vancomycin. Plan: Continue Lasix drip at 10 mL an hour. Maintain metolazone 5 mg twice daily. Low-salt and 1.5 L fluid restriction. Add ensure with meals. Maintain Prograf and prednisone. Strict I's and O's and daily weights. Maintain Aranesp. Repeat electrolytes in the morning.
[2016-10-29] MEDS: LEFLUNOMIDE 20 MG TAB PO SCH (12:01)
[2016-10-29] MEDS: GABAPENTIN 300 MG CAP PO SCH ×2 (12:01→20:48)
[2016-10-29] MEDS: PROPRANOLOL LA 60 MG CAP.SA.24H PO SCH (12:01)
[2016-10-29] MEDS: VANCOMYCIN ORAL SOLUTION 250 MG/5 ML BOTTLE PO SCH ×2 (12:02→17:40)
[2016-10-29] MEDS: CHERRY FLAVOR 60 ML BOTTLE PO SCH ×2 (12:02→17:42)
--- NOTE | 2016-10-29 12:52 | P.PN ---
Subjective Principal diagnosis: Anemia, congestive heart failure This is a pleasant 76-year-old gentleman with known history of hypertension, hyperlipidemia, cirrhotic arthritis, chronic renal failure who follows with Dr. Diallo and at [facility] for his kidneys, patient had a recent hospitalization with C. diff, also has history of CVA, chronic persistent atrial fibrillation. Patient was seen in the office yesterday by Dr. Tellez, he also has been being monitored closely as an outpatient because his hemoglobin has been low. It was noted that his hemoglobin dropped below 7 and he was recommended to come to the hospital for further admission. Patient did receive blood transfusion. Patient was also initiated on IV Lasix drip and has been diuresing well. His weight today is down 2 kg, creatinine is 2.8. He states he has had no more diarrhea stools and overall is starting to feel better. Patient still has significant bilateral peripheral edema however improved from yesterday. Objective - Vital Signs Vital signs: Vital Signs Temp 98.0 F 10/29/16 08:00 Pulse 78 10/29/16 11:29 Resp 18 10/29/16 11:29 BP 101/59 10/29/16 11:28 Pulse Ox 95 10/29/16 11:28 Intake & Output 10/28/16 10/29/16 10/29/16 18:59 06:59 18:59 Intake Total 550 150 634.333 Output Total 1550 2375 1550 Balance -1000 -2225 -915.667 Weight 118.5 kg Intake: IV 90 240 0.9 90 240 Intake, IV Titration 60 214.333 Amount Furosemide 250 mg In 60 214.333 Sodium Chloride 0.9% 225 ml @ 10 MG/HR 10 mls/hr IVP .Q24H [facility] Rx#: [id number] Oral 550 180 Output: Urine 1550 2375 1550 Uretheral ([place]onado) 1550 1275 1550 Other: Voiding Method Indwelling Catheter Indwelling Catheter Indwelling Catheter # Voids 1 # Bowel Movements 1 1 - Exam PHYSICAL EXAMINATION: HEENT: Head is atraumatic, normocephalic. Pupils equal, round. Neck is supple. There is no elevated jugular venous pressure. HEART EXAMINATION: S1 and S2 irregularly irregular a systolic murmur is heard. CHEST EXAMINATION: Lungs reveal diminished air entry to the bases anteriorly. ABDOMEN: Soft, be's, nontender. Bowel sounds are heard. No organomegaly noted. EXTREMITIES: 2+ peripheral pulses with 2-3+ evidence of peripheral edema and no calf tenderness noted. NEUROLOGIC patient is awake, alert and oriented -2. . - Labs CBC & Chem 7: 10/28/16 06:04 10/29/16 06:03 Labs: Abnormal Lab Results - Last 24 Hours (Table) 10/29/16 Range/Units 06:03 BUN 92 H* (9-20) mg/dL Creatinine 2.80 H (0.66-1.25) mg/dL Calcium 8.0 L (8.4-10.2) mg/dL Assessment and Plan Plan: Assessment and plan #1 diastolic congestive heart failure acute on chronic #2 anemia requiring blood transfusion #3 acute on chronic renal failure #4 hypertension #5 chronic persistent atrial fibrillation #8 borderline diabetes #9 hyperlipidemia #10 prior CVA #11 recent admission with C. diff Plan We will recommend to continue Lasix drip, continue to monitor intake and output along with daily weights and daily lytes BUN and creatinine. DNP note has been reviewed, I agree with a documented findings and plan of care. Patient was seen and examined.
[2016-10-29 13:39] LABS: Anisocytosis Slight; CH 30.9; CHCM 30.7; HCT 25.8 % (39.0-53.0); HDW 2.63; HGB 7.9 gm/dL (13.0-17.5); Hypochromasia Moderate; MCHC 30.6 g/dL (31.0-37.0); MCV 101.4 fL (80.0-100.0); Macrocytosis Moderate; Mean Platelet Volume 8.2; RBC 2.55 m/uL (4.30-5.90); RDW 17.6 % (11.5-15.5); WBC 4.7 k/uL (3.8-10.6)
[2016-10-29] MEDS: ATORVASTATIN 40 MG TAB PO SCH (20:47)
--- NOTE | 2016-10-29 22:54 | PN ---
Mr. Chadwick is a 76 -year-old male with a known history of hypertension, hyperlipidemia, osteoarthritis, CKD, who follows with Dr. Diallo also at [facility] and also chronic persistent atrial fibrillation, was admitted to the hospital from Dr. Bradford's office as he was found to be hemoglobin of 7. The patient had iron profile, showed no evidence of iron deficiency anemia. B12 level has been ordered. Otherwise, patient underwent one unit of blood transfusion. Hemoglobin improved to 7.8 today. Currently, patient denied any complaints of pain. Patient still having significant edema bilaterally. Patient is currently on IV Lasix drip and nephrology and cardiology is following this patient. Renal function slightly worsened with a creatinine level of 2.70. REVIEW OF SYSTEMS: CONSTITUTIONAL: No fever. No chills. RESPIRATORY: No cough or sputum production. Patient does have short of breath. CARDIOVASCULAR: No chest pain. Patient does have short of breath. Patient does have significant leg swelling. ABDOMEN: No nausea, vomiting, abdominal pain. No diarrhea. GENITOURINARY: No dysuria. No hematuria. ENDOCRINE: Negative. PSYCHIATRIC: Negative. SKIN: Negative. All other fourteen-point review of systems negative except as above. Current medications include: 1. Zyloprim. 2. Eliquis. 3. Aspirin. 4. Lipitor. 5. Calcium carbonate. 6. Daigle syrup. 7. ( ). 8. Docusate. 9. Vitamin D2. 10. Pepcid. 11. Feosol. 12. Lasix drip. 13. Gabapentin. 14. Imdur. 15. Lactobacillus. 16. ( ). 17. Lisinopril. 18. ( ). 19. Nitro-Bid. 20. Potassium chloride. 21. Prednisone. 22. Propranolol. 23. Chloride flushed. 24. Tacrolimus. 25. Tamsulosin. 26. Tramadol. 27. Vancomycin p.o. PHYSICAL EXAMINATION: A 76 -year-old male lying in the bed. Awake, alert, oriented, x3. Appears to be in no apparent distress. VITALS: Blood pressure is 127/71, pulse is 84, respiration 18, temperature afebrile. Pulse ox is 94% on room air. HEENT: Atraumatic, normocephalic. Neck is supple. No JVD. CVS: S1, S2 heard. No murmurs, no gallop. LUNGS: Bilateral air entry is present. Decreased breath sounds bilateral basally. Minimal crackles positive. Nonlabored breathing. ABDOMEN: Soft, distended, bowel sounds are present. NEUROLOGIC: [employer]: Awake, alert, oriented, x3. No focal deficits. EXTREMITIES: Bilateral lower extremity 3+ edema. Pitting type. Pulses palpable bilaterally. No clubbing or cyanosis. PSYCHIATRIC: Cooperative. LABORATORY DATA: WBC 6.0, hemoglobin 7.8, MCV 101.2, platelets 166, INR 1.2. Sodium 139, potassium 4.0, chloride 107, bicarb is 26. BUN 98, creatinine 2.7, calcium 8.2, C. dif toxin is positive. IMPRESSION: 1. Acute on chronic congestive heart failure with diastolic dysfunction. 2. Symptomatic anemia requiring blood transfusion. 3. Diarrhea improved now currently on p.o. vancomycin. 4. Nonoliguric acute kidney injury most likely prerenal due to diuresis. Possibly acute tubular necrosis. 5. Chronic kidney disease Stage III due to focal segmental glomerular sclerosis. The patient is on ( ) therapy for that and continue with the prednisone and tacrolimus. The patient follows with the [facility] as an outpatient and with Dr. Diallo. 6. Hypertension. 7. Chronic persistent atrial fibrillation, currently on anticoagulation with Eliquis. 8. Hyperlipidemia. 9. Elevated troponin secondary to acute kidney injury and demand mismatch. 10. Hyperlipidemia. 11. Borderline diabetes mellitus. 12. History of cerebrovascular accident. 13. Morbid obesity with body mass index of 39.7. DISCUSSION AND PLAN: Patient will be continued on IV Lasix drip and continue to monitor hemoglobin as well as renal function and continue to follow closely. Otherwise, continue the current management and further recommendations depending on clinical course.
[2016-10-30] MEDS: VANCOMYCIN ORAL SOLUTION 250 MG/5 ML BOTTLE PO SCH ×4 (00:27→16:58)
[2016-10-30] MEDS: CHERRY FLAVOR 60 ML BOTTLE PO SCH ×4 (00:28→16:58)
[2016-10-30 07:13] LABS: Calcium 7.8 mg/dL (8.4-10.2); Potassium 4.1 mmol/L (3.5-5.1)
[2016-10-30] MEDS: NITROGLYCERIN OINT 1 INCH/GM PACKET TOPICAL SCH ×4 (08:43→20:35)
[2016-10-30] MEDS: CALCIUM CARBONATE 500 MG CHEWABLE PO SCH (08:44)
[2016-10-30] MEDS: ASPIRIN 81 MG CHEW PO SCH (08:44)
[2016-10-30] MEDS: LISINOPRIL 20 MG TAB PO SCH (08:45)
[2016-10-30] MEDS: TACROLIMUS 1 MG CAP PO SCH ×3 (08:45→20:33)
[2016-10-30] MEDS: FERROUS SULFATE 325 MG TAB PO SCH (08:45)
[2016-10-30] MEDS: TAMSULOSIN 0.4 MG CAP.ER.24H PO SCH ×2 (08:45→20:34)
[2016-10-30] MEDS: POTASSIUM CHLORIDE ER 20 MEQ TAB.ER PO SCH ×2 (08:45→20:32)
[2016-10-30] MEDS: DOCUSATE 100 MG CAP PO SCH ×2 (08:45→20:30)
[2016-10-30] MEDS: LACTOBACILLUS ACIDOPH & BULGAR 1 EACH PACKET PO SCH (08:45)
[2016-10-30] MEDS: FAMOTIDINE 20 MG TAB PO SCH (08:46)
[2016-10-30] MEDS: predniSONE 10 MG TAB PO SCH (08:46)
[2016-10-30] MEDS: ISOSORBIDE MONONITRATE ER 30 MG TAB.ER.24H PO SCH (08:46)
[2016-10-30] MEDS: METOLAZONE 5 MG TAB PO SCH ×2 (08:46→20:29)
[2016-10-30] MEDS: APIXABAN 2.5 MG TABLET PO SCH ×2 (08:46→20:29)
[2016-10-30] MEDS: ALLOPURINOL 100 MG TAB PO SCH ×2 (08:46→20:28)
--- NOTE | 2016-10-30 10:02 | P.PN ---
Subjective Patient is seen in follow-up for acute kidney injury on chronic kidney disease. 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 His creatinine peaked at 2.8 on October 29 and is down to 2.54 today. He is maintained on Lasix drip at this time and urine output overnight in the last 24 hours was 4.7 L. He was also anemic on admission and received a blood transfusion. Hemoglobin is 7.9 as of yesterday. He still has significant edema. No vomiting. Noted to be C. diff positive. Oral intake is fair. Does have loose bowel movements. Vital signs are stable. General: The patient appeared well nourished and normally developed. HEENT: Head exam is unremarkable. Neck is without jugular venous distension. LUNGS: Scattered rhonchi at bases. Breath sounds decreased. HEART: Rate and Rhythm are regular. First and second heart sounds normal. No murmurs, rubs or gallops. ABDOMEN: Abdominal exam reveals normal bowel sounds. Non-tender and non- distended. No evidence of peritonitis. EXTREMITITES: 2+ edema. Objective - Vital Signs Vital signs: Vital Signs Temp 97.9 F 10/30/16 04:00 Pulse 81 10/30/16 04:00 Resp 18 10/30/16 04:00 BP 155/90 10/30/16 04:00 Pulse Ox 95 10/30/16 04:00 Intake & Output 10/29/16 10/30/16 10/30/16 18:59 06:59 18:59 Intake Total 1114.333 320 236 Output Total 2100 2600 Balance -985.667 -2280 236 Weight 115 kg Intake: IV 240 320 0.9 240 320 Intake, IV Titration 214.333 Amount Furosemide 250 mg In 214.333 Sodium Chloride 0.9% 225 ml @ 10 MG/HR 10 mls/hr IVP .Q24H [facility] Rx#: [id number] Oral 660 236 Output: Urine 2100 2600 Uretheral ([place]on[place]) 2100 1350 Other: Voiding Method Indwelling Catheter Indwelling Catheter # Bowel Movements 1 1 - Labs CBC & Chem 7: 10/29/16 06:03 10/30/16 05:54 Labs: Abnormal Lab Results - Last 24 Hours (Table) 10/29/16 10/30/16 Range/Units 06:03 05:54 RBC 2.55 L (4.30-5.90) m/uL Hgb 7.9 L (13.0-17.5) gm/dL Hct 25.8 L (39.0-53.0) % MCV 101.4 H (80.0-100.0) fL MCHC 30.6 L (31.0-37.0) g/dL RDW 17.6 H (11.5-15.5) % Chloride 108 H (98-107) mmol/L BUN 108 H* (9-20) mg/dL Creatinine 2.54 H (0.66-1.25) mg/dL Calcium 7.8 L (8.4-10.2) mg/dL Assessment and Plan Plan: Assessment: #1. Nonoliguric acute kidney injury secondary to ATN secondary to acute anemia as well as cardiorenal syndrome. Creatinine peaked at 2.8 and is down to 2.54 today. #2. 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 #3. Diastolic CHF. #4. Volume overload. Improving. #5. Acute anemia status post blood transfusion. Hemoglobin 7.8 as of yesterday. Iron replete. #6. C. diff colitis on oral vancomycin. Plan: Continue Lasix drip at 10 mL an hour. Maintain metolazone 5 mg twice daily. Low-salt and 1.5 L fluid restriction. Maintain ensure with meals. Maintain Prograf and prednisone. Strict I's and O's and daily weights. Maintain Aranesp. Repeat electrolytes in the morning.
[2016-10-30] MEDS: FUROSEMIDE 250 MG in SODIUM CHLORIDE 0.9% 225 ML IVP SCH (10:34)
[2016-10-30] MEDS: hydrALAZINE HCL 25 MG TAB PO SCH ×2 (12:29→20:31)
[2016-10-30] MEDS: PROPRANOLOL LA 60 MG CAP.SA.24H PO SCH (12:29)
[2016-10-30] MEDS: LEFLUNOMIDE 20 MG TAB PO SCH (12:30)
--- NOTE | 2016-10-30 12:32 | P.PN ---
Subjective Principal diagnosis: Anemia, congestive heart failure This is a pleasant 76-year-old gentleman with known history of hypertension, hyperlipidemia, cirrhotic arthritis, chronic renal failure who follows with Dr. Diallo and at [facility] for his kidneys, patient had a recent hospitalization with C. diff, also has history of CVA, chronic persistent atrial fibrillation. Patient was seen in the office yesterday by Dr. Tellez, he also has been being monitored closely as an outpatient because his hemoglobin has been low. It was noted that his hemoglobin dropped below 7 and he was recommended to come to the hospital for further admission. Patient did receive blood transfusion. Patient was also initiated on IV Lasix drip and has been diuresing well. His weight today is down 3 kg, creatinine is 2.5. Patient is sitting up in the chair today at the time of my examination, overall feeling much better. Objective - Vital Signs Vital signs: Vital Signs Temp 98.0 F 10/30/16 08:00 Pulse 92 10/30/16 08:00 Resp 18 10/30/16 08:00 BP 150/82 10/30/16 08:00 Pulse Ox 92 L 10/30/16 08:00 Intake & Output 10/29/16 10/30/16 10/30/16 18:59 06:59 18:59 Intake Total 1114.333 320 484.167 Output Total 2100 2600 Balance -985.667 -2280 484.167 Weight 115 kg Intake: IV 240 320 0.9 240 320 Intake, IV Titration 214.333 248.167 Amount Furosemide 250 mg In 214.333 248.167 Sodium Chloride 0.9% 225 ml @ 10 MG/HR 10 mls/hr IVP .Q24H NEW Rx#: [id number] Oral 660 236 Output: Urine 2100 2600 Uretheral ([place]) 2100 1350 Other: Voiding Method Indwelling Catheter Indwelling Catheter Indwelling Catheter # Bowel Movements 1 1 - Exam PHYSICAL EXAMINATION: HEENT: Head is atraumatic, normocephalic. Pupils equal, round. Neck is supple. There is no elevated jugular venous pressure. HEART EXAMINATION: S1 and S2 irregularly irregular a systolic murmur is heard. CHEST EXAMINATION: Lungs reveal diminished air entry to the bases anteriorly. ABDOMEN: Soft, be's, nontender. Bowel sounds are heard. No organomegaly noted. EXTREMITIES: 2+ peripheral pulses with 1+ evidence of peripheral edema and no calf tenderness noted. NEUROLOGIC patient is awake, alert and oriented -2. . - Labs CBC & Chem 7: 10/29/16 06:03 10/30/16 05:54 Labs: Abnormal Lab Results - Last 24 Hours (Table) 10/29/16 10/30/16 Range/Units 06:03 05:54 RBC 2.55 L (4.30-5.90) m/uL Hgb 7.9 L (13.0-17.5) gm/dL Hct 25.8 L (39.0-53.0) % MCV 101.4 H (80.0-100.0) fL MCHC 30.6 L (31.0-37.0) g/dL RDW 17.6 H (11.5-15.5) % Chloride 108 H (98-107) mmol/L BUN 108 H* (9-20) mg/dL Creatinine 2.54 H (0.66-1.25) mg/dL Calcium 7.8 L (8.4-10.2) mg/dL Assessment and Plan Plan: Assessment and plan #1 diastolic congestive heart failure acute on chronic #2 anemia requiring blood transfusion #3 acute on chronic renal failure #4 hypertension #5 chronic persistent atrial fibrillation #8 borderline diabetes #9 hyperlipidemia #10 prior CVA #11 recent admission with C. diff Plan We will recommend to continue Lasix drip, continue to monitor intake and output along with daily weights and daily lytes BUN and creatinine. DNP note has been reviewed, I agree with a documented findings and plan of care. Patient was seen and examined.
--- NOTE | 2016-10-30 16:02 | XR ---
EXAMINATION TYPE: XR chest 1V portable DATE OF EXAM: 10/30/2016 COMPARISON: 10/26/2016 HISTORY: Edema. TECHNIQUE: Single frontal view of the chest is obtained. FINDINGS: Heart is enlarged. There is coarsening of interstitial markings. There is poor separation and elevation of the left diaphragm. There is multilevel cervical fusion surgery noted. IMPRESSION: There is improvement in the pulmonate congestion compared to last exam. Cardiomegaly. In spiration is worse than last exam. There is evidence of persistent infiltrate and atelectasis in the left lower lobe.
[2016-10-30] MEDS: GABAPENTIN 300 MG CAP PO SCH ×2 (16:58→20:35)
[2016-10-30] MEDS: ATORVASTATIN 40 MG TAB PO SCH (20:30)
[2016-10-31] MEDS: VANCOMYCIN ORAL SOLUTION 250 MG/5 ML BOTTLE PO SCH ×5 (00:02→23:50)
[2016-10-31] MEDS: CHERRY FLAVOR 60 ML BOTTLE PO SCH ×5 (00:03→23:51)
[2016-10-31 06:21] LABS: Anisocytosis Slight; Basophils % (A) 0 %; CHCM 31.4; Eosinophils # (A) 0.2 k/uL (0-0.7); Eosinophils % (A) 3 %; HCT 27.2 % (39.0-53.0); HDW 2.61; HGB 8.4 gm/dL (13.0-17.5); Hypochromasia Slight; Luc # (Auto) 0.18; Luc % (Auto) 3; Lymphocytes # (A) 0.4 k/uL (1.0-4.8); Lymphocytes % (A) 6 %; MCH 30.8 pg (25.0-35.0); MCV 99.3 fL (80.0-100.0); Macrocytosis Slight; Mean Platelet Volume 7.5; Monocytes # (A) 0.4 k/uL (0-1.0); Monocytes % (A) 5 %; Neutrophils # (A) 5.8 k/uL (1.3-7.7); Neutrophils % (A) 83 %; RBC 2.74 m/uL (4.30-5.90); RDW 17.2 % (11.5-15.5); WBC 6.9 k/uL (3.8-10.6); WBC (Perox) 7.14
[2016-10-31 06:50] LABS: Calcium 8.4 mg/dL (8.4-10.2); Magnesium 1.8 mg/dL (1.6-2.3); Potassium 3.6 mmol/L (3.5-5.1)
[2016-10-31] MEDS ORDERED: LACTOBACILLUS ACIDOPH & BULGAR 1 EACH PACKET ONE (09:00)
[2016-10-31] MEDS ORDERED: ISOSORBIDE MONONITRATE ER 30 MG TAB.ER.24H PO ONE (09:00)
[2016-10-31] MEDS ORDERED: ERGOCALCIFEROL 50,000 UNIT CAP ONE (09:00)
[2016-10-31] MEDS ORDERED: TACROLIMUS 1 MG CAP ONE (09:00)
[2016-10-31] MEDS ORDERED: ALLOPURINOL 100 MG TAB ONE (09:00)
[2016-10-31] MEDS ORDERED: ASPIRIN 81 MG CHEW ONE (09:00)
[2016-10-31] MEDS ORDERED: hydrALAZINE HCL 25 MG TAB ONE (09:00)
[2016-10-31] MEDS ORDERED: LISINOPRIL 20 MG TAB ONE (09:00)
[2016-10-31] MEDS ORDERED: METOLAZONE 5 MG TAB ONE (09:00)
[2016-10-31] MEDS ORDERED: FAMOTIDINE 20 MG TAB ONE (09:00)
[2016-10-31] MEDS ORDERED: predniSONE 10 MG TAB ONE (09:00)
[2016-10-31] MEDS ORDERED: CALCIUM CARBONATE 500 MG CHEWABLE PO ONE (09:00)
[2016-10-31] MEDS ORDERED: POTASSIUM CHLORIDE ER 20 MEQ TAB.ER PO ONE (09:00)
[2016-10-31] MEDS ORDERED: TAMSULOSIN 0.4 MG CAP.ER.24H PO ONE (09:00)
[2016-10-31] MEDS ORDERED: APIXABAN 2.5 MG TABLET ONE (09:00)
[2016-10-31] MEDS ORDERED: FERROUS SULFATE 325 MG TAB PO ONE (09:00)
[2016-10-31] MEDS ORDERED: POTASSIUM CHLORIDE ER 20 MEQ TAB.ER PO STA (09:32)
--- NOTE | 2016-10-31 10:01 | P.PN ---
Subjective Patient is seen in follow-up for acute kidney injury on chronic kidney disease. 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 His creatinine peaked at 2.8 on October 29 and is down to 2.4 today. He is maintained on Lasix drip at this time and urine output overnight in the last 24 hours was 5.2 L. He was also anemic on admission and received a blood transfusion. Hemoglobin is 8.4 today. He still has significant edema. No vomiting. Noted to be C. diff positive. Oral intake is fair. Does have loose bowel movements. Vital signs are stable. General: The patient appeared well nourished and normally developed. HEENT: Head exam is unremarkable. Neck is without jugular venous distension. LUNGS: Scattered rhonchi at bases. Breath sounds decreased. HEART: Rate and Rhythm are regular. First and second heart sounds normal. No murmurs, rubs or gallops. ABDOMEN: Abdominal exam reveals normal bowel sounds. Non-tender and non- distended. No evidence of peritonitis. EXTREMITITES: 2+ edema. Objective - Vital Signs Vital signs: Vital Signs Temp 97.9 F 10/30/16 20:00 Pulse 89 10/31/16 04:00 Resp 18 10/31/16 04:00 BP 145/81 10/31/16 04:00 Pulse Ox 92 L 10/31/16 04:00 Intake & Output 10/30/16 10/31/16 10/31/16 18:59 06:59 18:59 Intake Total 1481.167 220 Output Total 1600 3675 Balance -118.833 -3455 Weight 111.5 kg Intake: IV 210 220 0.9 140 220 Furosemide 250 mg In 70 Sodium Chloride 0.9% 225 ml @ 10 MG/HR 10 mls/hr IVP .Q24H NEW Rx#: [id number] Intake, IV Titration 248.167 Amount Furosemide 250 mg In 248.167 Sodium Chloride 0.9% 225 ml @ 10 MG/HR 10 mls/hr IVP .Q24H NEW Rx#: [id number] Oral 1023 Output: Urine 1600 3675 Uretheral ([place]) 2500 Other: Voiding Method Indwelling Catheter Indwelling Catheter # Bowel Movements 1 - Labs CBC & Chem 7: 10/31/16 05:38 10/31/16 05:38 Labs: Abnormal Lab Results - Last 24 Hours (Table) 10/31/16 10/31/16 Range/Units 05:38 05:38 RBC 2.74 L (4.30-5.90) m/uL Hgb 8.4 L (13.0-17.5) gm/dL Hct 27.2 L (39.0-53.0) % RDW 17.2 H (11.5-15.5) % Lymphocytes # 0.4 L (1.0-4.8) k/uL Carbon Dioxide 32 H (22-30) mmol/L BUN 104 H* (9-20) mg/dL Creatinine 2.40 H (0.66-1.25) mg/dL Glucose 103 H (74-99) mg/dL Assessment and Plan Plan: Assessment: #1. Nonoliguric acute kidney injury secondary to ATN secondary to acute anemia as well as cardiorenal syndrome. Creatinine peaked at 2.8 and is down to 2.4 today. #2. 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 #3. Diastolic CHF. #4. Volume overload. Improving. #5. Acute anemia status post blood transfusion. Hemoglobin stable. Iron replete. #6. C. diff colitis on oral vancomycin. #7. Hypokalemia secondary to diuresis. Plan: Continue Lasix drip at 10 mL an hour for another 24 hours. Maintain metolazone 5 mg twice daily. Low-salt and 1.5 L fluid restriction. Maintain ensure with meals. Maintain Prograf and prednisone. Strict I's and O's and daily weights. Maintain Aranesp. Replace potassium. Additional 40 mEq today. Repeat electrolytes in the morning.
[2016-10-31] MEDS: FAMOTIDINE 20 MG TAB PO SCH (10:38)
[2016-10-31] MEDS: hydrALAZINE HCL 25 MG TAB PO SCH ×2 (10:38→20:22)
[2016-10-31] MEDS: APIXABAN 2.5 MG TABLET PO SCH ×2 (10:38→20:22)
[2016-10-31] MEDS: FERROUS SULFATE 325 MG TAB PO SCH (10:38)
[2016-10-31] MEDS: DOCUSATE 100 MG CAP PO SCH ×2 (10:38→20:22)
[2016-10-31] MEDS: ASPIRIN 81 MG CHEW PO SCH (10:38)
[2016-10-31] MEDS: ERGOCALCIFEROL 50,000 UNIT CAP PO SCH (10:38)
[2016-10-31] MEDS: CALCIUM CARBONATE 500 MG CHEWABLE PO SCH (10:38)
[2016-10-31] MEDS: ALLOPURINOL 100 MG TAB PO SCH ×2 (10:38→20:21)
[2016-10-31] MEDS: ISOSORBIDE MONONITRATE ER 30 MG TAB.ER.24H PO SCH (10:39)
[2016-10-31] MEDS: predniSONE 10 MG TAB PO SCH (10:39)
[2016-10-31] MEDS: METOLAZONE 5 MG TAB PO SCH ×2 (10:39→20:22)
[2016-10-31] MEDS: POTASSIUM CHLORIDE ER 20 MEQ TAB.ER PO SCH ×2 (10:39→20:22)
[2016-10-31] MEDS: LACTOBACILLUS ACIDOPH & BULGAR 1 EACH PACKET PO SCH (10:39)
[2016-10-31] MEDS: NITROGLYCERIN OINT 1 INCH/GM PACKET TOPICAL SCH ×4 (10:39→20:23)
[2016-10-31] MEDS: LISINOPRIL 20 MG TAB PO SCH (10:39)
[2016-10-31] MEDS: TACROLIMUS 1 MG CAP PO SCH ×3 (10:40→20:23)
[2016-10-31] MEDS: TAMSULOSIN 0.4 MG CAP.ER.24H PO SCH ×2 (10:40→20:22)
--- NOTE | 2016-10-31 11:13 | PN ---
Date of Service 10/30/16 Mr. Chadwick is a 76 -year-old male with known history of hypertension, hyperlipidemia, osteoarthritis, CKD, Stage IIIB due to biopsy proven focal segmental glomerular stenosis and CHF admitted to the hospital with low hemoglobin from Dr. Bradford's office. The patient's hemoglobin improved with blood transfusion. Otherwise, the patient is volume overloaded and chest x-ray showed improvement, the patient currently on Lasix drip. Cardiology and nephrology are following this patient. Creatinine slightly improved today. REVIEW OF SYSTEMS: CONSTITUTIONAL: No fever. No chills. RESPIRATORY: No cough or sputum production. CARDIOVASCULAR: No chest pain. No worsening shortness of breath. Patient does have leg swelling. ABDOMEN: No nausea or vomiting, abdominal pain. GENITOURINARY: Negative. ENDOCRINE: Negative. PSYCHIATRIC: Negative. SKIN: Negative. All other 14 point review of systems negative except as above. CURRENT MEDICATIONS: Reviewed. PHYSICAL EXAMINATION: A 76-year-old man lying in bed comfortably, awake, alert and oriented times three. He appears to be in no apparent distress. VITALS: Blood pressure is 148/68, pulse is 72, respirations 16, temperature afebrile, pulse ox 92% on room air. HEENT: Atraumatic, normocephalic. Neck is supple. No jugular venous distention. CVS: S1, S2 heard. No gallops. LUNGS: Bilateral air entry is present. Crackles positive. Nonlabored breathing. ABDOMEN: Obese. Bowel sounds present. SOFTWARE TEST TECHNICIAN: Awake, alert, oriented, x3 appears to be in no apparent distress. LABORATORY DATA: Sodium 143, potassium 4.1, chloride 108, bicarb is 29, BUN 108, creatinine 2.54, calcium is 7.8. IMPRESSION: 1. Acute on chronic with diastolic dysfunction. 2. Symptomatic anemia requiring blood transfusion. 3. Acute on chronic kidney disease secondary to acute tubular necrosis as well as anemia and possible cardiorenal syndrome. 4. Chronic kidney disease Stage IIIB biopsy proven focal segmental glomerulosclerosis. The patient is on immunosuppressive therapy with prednisone and Tacrolimus and follow with Dr. Diallo and also [facility]. 5. Hypertension. 6. Chronic persistent atrial fibrillation, currently on anticoagulation with Eliquis. 7. Hyperlipidemia. 8. Elevated troponin level secondary to acute kidney injury and demand mismatch. 9. Hyperlipidemia. 10. Borderline diabetes mellitus. 11. History of cerebrovascular accident. 12. Morbid obesity with body mass index of 39.7. DISCUSSION AND PLAN: Patient will be continued on IV Lasix drip and follow up renal function and hemoglobin. Prognosis is guarded. Continue the current management and further recommendations based on the clinical course. MTDD
[2016-10-31] MEDS: PROPRANOLOL LA 60 MG CAP.SA.24H PO SCH (12:11)
[2016-10-31] MEDS: LEFLUNOMIDE 20 MG TAB PO SCH (12:11)
--- NOTE | 2016-10-31 12:21 | P.PN ---
Subjective Principal diagnosis: Anemia, congestive heart failure This is a pleasant 76-year-old gentleman with known history of hypertension, hyperlipidemia, cirrhotic arthritis, chronic renal failure who follows with Dr. Diallo and at [facility] for his kidneys, patient had a recent hospitalization with CPhilip diff, also has history of CVA, chronic persistent atrial fibrillation. Patient was seen in the office yesterday by Dr. Tellez, he also has been being monitored closely as an outpatient because his hemoglobin has been low. It was noted that his hemoglobin dropped below 7 and he was recommended to come to the hospital for further admission. Patient did receive blood transfusion. Patient was also initiated on IV Lasix drip and has been diuresing well. His weight today is down 4 kg, creatinine is 2.4. Clinically is doing better today but overall just not feeling well. He denies any overt shortness of breath, denies any nausea, states that his appetite is poor today. Objective - Vital Signs Vital signs: Vital Signs Temp 97.9 F 10/31/16 11:30 Pulse 96 10/31/16 11:30 Resp 18 10/31/16 11:30 BP 145/83 10/31/16 08:00 Pulse Ox 95 10/31/16 08:00 Intake & Output 10/30/16 10/31/16 10/31/16 18:59 06:59 18:59 Intake Total 1481.167 220 150 Output Total 1600 3675 Balance -118.833 -3455 150 Weight 111.5 kg Intake: IV 210 220 150 0.9 140 220 100 Furosemide 250 mg In 70 50 Sodium Chloride 0.9% 225 ml @ 10 MG/HR 10 mls/hr IVP .Q24H NEW Rx#: [id number] Intake, IV Titration 248.167 Amount Furosemide 250 mg In 248.167 Sodium Chloride 0.9% 225 ml @ 10 MG/HR 10 mls/hr IVP .Q24H NEW Rx#: [id number] Oral 1023 Output: Urine 1600 3675 Uretheral ([place]) 2500 Other: Voiding Method Indwelling Catheter Indwelling Catheter Indwelling Catheter # Bowel Movements 1 - Exam PHYSICAL EXAMINATION: HEENT: Head is atraumatic, normocephalic. Pupils equal, round. Neck is supple. There is no elevated jugular venous pressure. HEART EXAMINATION: S1 and S2 irregularly irregular a systolic murmur is heard. CHEST EXAMINATION: Lungs reveal diminished air entry to the bases anteriorly. ABDOMEN: Soft, be's, nontender. Bowel sounds are heard. No organomegaly noted. EXTREMITIES: 2+ peripheral pulses with 1+ evidence of peripheral edema and no calf tenderness noted. NEUROLOGIC patient is awake, alert and oriented -2. . - Labs CBC & Chem 7: 10/31/16 05:38 10/31/16 05:38 Labs: Abnormal Lab Results - Last 24 Hours (Table) 10/31/16 10/31/16 Range/Units 05:38 05:38 RBC 2.74 L (4.30-5.90) m/uL Hgb 8.4 L (13.0-17.5) gm/dL Hct 27.2 L (39.0-53.0) % RDW 17.2 H (11.5-15.5) % Lymphocytes # 0.4 L (1.0-4.8) k/uL Carbon Dioxide 32 H (22-30) mmol/L BUN 104 H* (9-20) mg/dL Creatinine 2.40 H (0.66-1.25) mg/dL Glucose 103 H (74-99) mg/dL Assessment and Plan Plan: Assessment and plan #1 diastolic congestive heart failure acute on chronic #2 anemia requiring blood transfusion #3 acute on chronic renal failure #4 hypertension #5 chronic persistent atrial fibrillation #8 borderline diabetes #9 hyperlipidemia #10 prior CVA #11 recent admission with C. diff Plan We will recommend to continue Lasix drip, continue to monitor intake and output along with daily weights and daily lytes BUN and creatinine. DNP note has been reviewed, I agree with a documented findings and plan of care. Patient was seen and examined.
[2016-10-31] MEDS: FUROSEMIDE 250 MG in SODIUM CHLORIDE 0.9% 225 ML IVP SCH (16:54)
[2016-10-31] MEDS: GABAPENTIN 300 MG CAP PO SCH ×2 (17:12→20:22)
[2016-10-31] MEDS: ATORVASTATIN 40 MG TAB PO SCH (20:22)
[2016-11-01 06:06] LABS: Calcium 8.4 mg/dL (8.4-10.2); Potassium 3.9 mmol/L (3.5-5.1)
[2016-11-01] MEDS: CHERRY FLAVOR 60 ML BOTTLE PO SCH ×3 (06:06→17:54)
[2016-11-01] MEDS: VANCOMYCIN ORAL SOLUTION 250 MG/5 ML BOTTLE PO SCH ×3 (06:07→17:54)
[2016-11-01] MEDS: predniSONE 10 MG TAB PO SCH (09:35)
[2016-11-01] MEDS: APIXABAN 2.5 MG TABLET PO SCH ×2 (09:35→20:04)
[2016-11-01] MEDS: TAMSULOSIN 0.4 MG CAP.ER.24H PO SCH ×2 (09:35→20:06)
[2016-11-01] MEDS: FAMOTIDINE 20 MG TAB PO SCH (09:35)
[2016-11-01] MEDS: FERROUS SULFATE 325 MG TAB PO SCH (09:35)
[2016-11-01] MEDS: ASPIRIN 81 MG CHEW PO SCH (09:35)
[2016-11-01] MEDS: ISOSORBIDE MONONITRATE ER 30 MG TAB.ER.24H PO SCH (09:35)
[2016-11-01] MEDS: CALCIUM CARBONATE 500 MG CHEWABLE PO SCH (09:35)
[2016-11-01] MEDS: POTASSIUM CHLORIDE ER 20 MEQ TAB.ER PO SCH ×2 (09:35→20:05)
[2016-11-01] MEDS: ALLOPURINOL 100 MG TAB PO SCH ×2 (09:35→20:04)
[2016-11-01] MEDS: LISINOPRIL 20 MG TAB PO SCH (09:36)
[2016-11-01] MEDS: hydrALAZINE HCL 25 MG TAB PO SCH ×2 (09:36→20:04)
[2016-11-01] MEDS: TACROLIMUS 1 MG CAP PO SCH ×3 (09:36→20:05)
[2016-11-01] MEDS: LACTOBACILLUS ACIDOPH & BULGAR 1 EACH PACKET PO SCH (09:36)
[2016-11-01] MEDS: METOLAZONE 5 MG TAB PO SCH ×2 (09:36→20:05)
[2016-11-01] MEDS: NITROGLYCERIN OINT 1 INCH/GM PACKET TOPICAL SCH ×4 (09:36→20:09)
[2016-11-01] MEDS: DOCUSATE 100 MG CAP PO SCH ×2 (09:37→20:04)
--- NOTE | 2016-11-01 10:17 | P.PN ---
Subjective Patient is seen in follow-up for acute kidney injury on chronic kidney disease. 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 His creatinine peaked at 2.8 on October 29 and is down to 2.2 today. He is maintained on Lasix drip at this time and urine output overnight in the last 24 hours was 2 L. He was also anemic on admission and received a blood transfusion. Hemoglobin is 8.4 as of yesterday. He still has significant edema. No vomiting. Noted to be C. diff positive. Oral intake is fair. Does have loose bowel movements. Vital signs are stable. General: The patient appeared well nourished and normally developed. HEENT: Head exam is unremarkable. Neck is without jugular venous distension. LUNGS: Scattered rhonchi at bases. Breath sounds decreased. HEART: Rate and Rhythm are regular. First and second heart sounds normal. No murmurs, rubs or gallops. ABDOMEN: Abdominal exam reveals normal bowel sounds. Non-tender and non- distended. No evidence of peritonitis. EXTREMITITES: 2+ edema. Objective - Vital Signs Vital signs: Vital Signs Temp 97.0 F L 11/01/16 03:31 Pulse 78 11/01/16 03:32 Resp 16 11/01/16 03:32 BP 144/84 11/01/16 03:31 Pulse Ox 92 L 11/01/16 03:31 Intake & Output 10/31/16 11/01/16 11/01/16 18:59 06:59 18:59 Intake Total 400 440 Output Total 1900 701 Balance 400 -1460 -701 Weight 110.5 kg Intake: IV 150 320 0.9 100 240 Furosemide 250 mg In 50 80 Sodium Chloride 0.9% 225 ml @ 10 MG/HR 10 mls/hr IVP .Q24H NEW Rx#: [id number] Intake, IV Titration 250 Amount Furosemide 250 mg In 250 Sodium Chloride 0.9% 225 ml @ 10 MG/HR 10 mls/hr IVP .Q24H NEW Rx#: [id number] Oral 120 Output: Urine 1900 700 Uretheral ([place]) 700 Stool 1 Other: Voiding Method Indwelling Catheter Indwelling Catheter # Voids 0 # Bowel Movements 0 1 - Labs CBC & Chem 7: 10/31/16 05:38 11/01/16 05:23 Labs: Abnormal Lab Results - Last 24 Hours (Table) 11/01/16 Range/Units 05:23 Carbon Dioxide 32 H (22-30) mmol/L BUN 107 H* (9-20) mg/dL Creatinine 2.20 H (0.66-1.25) mg/dL Assessment and Plan Plan: Assessment: #1. Nonoliguric acute kidney injury secondary to ATN secondary to acute anemia as well as cardiorenal syndrome. Creatinine peaked at 2.8 and is down to 2.2 today. #2. 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 #3. Diastolic CHF. #4. Volume overload. Improving. #5. Acute anemia status post blood transfusion. Hemoglobin stable. Iron replete. #6. C. diff colitis on oral vancomycin. #7. Hypokalemia secondary to diuresis. Plan: Increase Lasix drip to 15 mL an hour. Maintain metolazone 5 mg twice daily. Low-salt and 1.5 L fluid restriction. Maintain ensure with meals. Maintain Prograf and prednisone. Strict I's and O's and daily weights. Maintain Aranesp. Repeat electrolytes in the morning.
--- NOTE | 2016-11-01 10:31 | PN ---
DATE OF SERVICE: 10/31/2016 INTERVAL HISTORY: Mr. Chadwick is a 76-year-old male with a known history of hypertension, hyperlipidemia, osteoarthritis, CKD stage IIIB due to biopsy proven FSGS and congestive heart failure with diastolic dysfunction admitted to the hospital with low hemoglobin from Dr. Bradford's office. Patient's hemoglobin improved with blood transfusion currently at 8.6 today. Otherwise, patient is fluid overloaded and is being treated for acute CHF exacerbation and currently on Lasix drip. Cardiology and Nephrology are following this patient. Renal function is slightly improved today. Otherwise, the patient says that he is feeling much better today. The patient still having significant leg swelling. No complaint of chest pain or shortness of breath. No fever. No chills. No acute overnight issues. REVIEW OF SYSTEMS: CONSTITUTIONAL: No fever. No chills. No weakness. RESPIRATORY: No cough or sputum production. CARDIOVASCULAR: No chest pain or short of breath. ( ) leg swelling. ABDOMEN: No nausea, vomiting, abdominal pain. No diarrhea. GENITOURINARY: Negative ENDOCRINE: Negative. PSYCHIATRY: Negative. SKIN: Negative. MUSCULOSKELETAL: Negative. All 14-point review of systems negative except as the above. CURRENT MEDICATIONS: Reviewed. PHYSICAL EXAMINATION: a 76-year-old male lying in the bed, awake, alert and oriented x3, appears to be in no apparent distress. VITALS: Blood pressure is 143/83, pulse 81, respirations 16, temperature afebrile, pulse ox 94% on room air. HEENT: Atraumatic, normocephalic. Neck is supple. No JVD. CVS EXAM: S1 and S2 heard. No murmurs, no gallop, no rub. LUNGS: Clear air entry is present. Diminished breath sounds basally. Nonlabored breathing. ABDOMEN: Soft, obese. Bowel sounds are present. CHIEF MEDICAL TECHNOLOGIST: Awake, alert, oriented x3. No focal deficit. Able to move all his extremities. EXTREMITIES: Bilateral 3+ edema. Pulses are palpable bilaterally. No clubbing or cyanosis. PSYCHIATRIC: Cooperative. LABORATORY DATA: WBC 6.9, hemoglobin 8.4, platelets 173. Sodium 141, potassium 3.6, chloride 102, bicarb 32. BUN 104, creatinine 2.4. Calcium 8.4. Magnesium 1.8. Vitamin B12 ( ). C. difficile is positive. IMPRESSION: 1. Acute on chronic congestive heart failure with diastolic dysfunction. 2. Symptomatic anemia, requiring blood transfusion. Hemoglobin is stable at 8.6. 3. Acute Clostridium difficile infection, currently on p.o. vancomycin. 4. Acute on chronic kidney disease secondary to acute tubular necrosis as well as anemia and possible cardiorenal syndrome. 5. 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 Diallo and also at [facility]. 6. Hypertension. 7. Chronic persistent atrial fibrillation, currently on anticoagulant with Eliquis. 8. Hyperlipidemia. 9. Elevated troponin level secondary to acute kidney injury and demand mismatch. 10. Borderline diabetes mellitus. 11. History of cerebrovascular accident. 12. Morbid obesity with body mass index of 39.7. DISCUSSION AND PLAN: Patient will be continued on IV Lasix. Continue with the current management. Follow up renal function and hemoglobin. Prognosis is guarded. Further recommendations based on the clinical course.
[2016-11-01] MEDS: FUROSEMIDE 250 MG in SODIUM CHLORIDE 0.9% 225 ML IVP SCH ×2 (12:05→20:03)
[2016-11-01] MEDS: LEFLUNOMIDE 20 MG TAB PO SCH (12:06)
[2016-11-01] MEDS: PROPRANOLOL LA 60 MG CAP.SA.24H PO SCH (12:06)
--- NOTE | 2016-11-01 15:25 | P.PN ---
Subjective Principal diagnosis: Anemia, congestive heart failure This is a pleasant 76-year-old gentleman with known history of hypertension, hyperlipidemia, cirrhotic arthritis, chronic renal failure who follows with Dr. Diallo and at [facility] for his kidneys, patient had a recent hospitalization with CPhilip diff, also has history of CVA, chronic persistent atrial fibrillation. Patient was seen in the office yesterday by Dr. Tellez, he also has been being monitored closely as an outpatient because his hemoglobin has been low. It was noted that his hemoglobin dropped below 7 and he was recommended to come to the hospital for further admission. Patient did receive blood transfusion. Patient was also initiated on IV Lasix drip and has been diuresing well. His weight today is down 1 kg, creatinine is 2.2. Clinically is doing better today having some loose stools. Objective - Vital Signs Vital signs: Vital Signs Temp 97 F L 11/01/16 12:00 Pulse 88 11/01/16 12:00 Resp 16 11/01/16 12:00 BP 130/70 11/01/16 12:00 Pulse Ox 92 L 11/01/16 12:00 Intake & Output 10/31/16 11/01/16 11/01/16 18:59 06:59 18:59 Intake Total 400 440 556.833 Output Total 1900 701 Balance 400 -1460 -144.167 Weight 110.5 kg Intake: IV 150 320 240 0.9 100 240 160 Furosemide 250 mg In 50 80 80 Sodium Chloride 0.9% 225 ml @ 15 MG/HR 15 mls/hr IVP .[id number] NEW Rx#: [id number] Intake, IV Titration 250 191.833 Amount Furosemide 250 mg In 250 191.833 Sodium Chloride 0.9% 225 ml @ 15 MG/HR 15 mls/hr IVP .[id number] NEW Rx#: [id number] Oral 120 125 Output: Urine 1900 700 Uretheral ([place]) 700 Stool 1 Other: Voiding Method Indwelling Catheter Indwelling Catheter Indwelling Catheter # Voids 0 # Bowel Movements 0 1 - Exam PHYSICAL EXAMINATION: HEENT: Head is atraumatic, normocephalic. Pupils equal, round. Neck is supple. There is no elevated jugular venous pressure. HEART EXAMINATION: S1 and S2 irregularly irregular a systolic murmur is heard. CHEST EXAMINATION: Lungs reveal diminished air entry to the bases anteriorly. ABDOMEN: Soft, be's, nontender. Bowel sounds are heard. No organomegaly noted. EXTREMITIES: 2+ peripheral pulses with 1+ evidence of peripheral edema and no calf tenderness noted. NEUROLOGIC patient is awake, alert and oriented -2. . - Labs CBC & Chem 7: 10/31/16 05:38 11/01/16 05:23 Labs: Abnormal Lab Results - Last 24 Hours (Table) 11/01/16 Range/Units 05:23 Carbon Dioxide 32 H (22-30) mmol/L BUN 107 H* (9-20) mg/dL Creatinine 2.20 H (0.66-1.25) mg/dL Assessment and Plan Plan: Assessment and plan #1 diastolic congestive heart failure acute on chronic #2 anemia requiring blood transfusion #3 acute on chronic renal failure #4 hypertension #5 chronic persistent atrial fibrillation #8 borderline diabetes #9 hyperlipidemia #10 prior CVA #11 recent admission with C. diff Plan We will recommend to continue Lasix drip at 15 mg per hour., continue to monitor intake and output along with daily weights and daily lytes BUN and creatinine. DNP note has been reviewed, I agree with a documented findings and plan of care. Patient was seen and examined.
[2016-11-01] MEDS: GABAPENTIN 300 MG CAP PO SCH ×2 (17:53→20:06)
[2016-11-01] MEDS: ATORVASTATIN 40 MG TAB PO SCH (20:04)
[2016-11-02] MEDS: CHERRY FLAVOR 60 ML BOTTLE PO SCH ×5 (00:08→23:44)
[2016-11-02] MEDS: VANCOMYCIN ORAL SOLUTION 250 MG/5 ML BOTTLE PO SCH ×5 (00:08→23:43)
[2016-11-02 06:00] LABS: Anisocytosis Slight; Basophils % (A) 0 %; CH 30.8; CHCM 31.6; Eosinophils # (A) 0.2 k/uL (0-0.7); Eosinophils % (A) 2 %; HDW 2.55; HGB 8.3 gm/dL (13.0-17.5); Hypochromasia Slight; Luc # (Auto) 0.15; Luc % (Auto) 2; Lymphocytes # (A) 0.6 k/uL (1.0-4.8); Lymphocytes % (A) 7 %; MCH 30.3 pg (25.0-35.0); MCHC 30.9 g/dL (31.0-37.0); Macrocytosis Slight; Mean Platelet Volume 7.3; Monocytes # (A) 0.6 k/uL (0-1.0); Monocytes % (A) 7 %; Neutrophils # (A) 6.7 k/uL (1.3-7.7); Neutrophils % (A) 82 %; RBC 2.75 m/uL (4.30-5.90); RDW 16.8 % (11.5-15.5); WBC 8.2 k/uL (3.8-10.6); WBC (Perox) 8.68
[2016-11-02 06:18] LABS: Calcium 8.5 mg/dL (8.4-10.2); Potassium 3.6 mmol/L (3.5-5.1)
[2016-11-02] MEDS: FUROSEMIDE 250 MG in SODIUM CHLORIDE 0.9% 225 ML IVP SCH ×2 (06:28→17:27)
[2016-11-02] MEDS: NITROGLYCERIN OINT 1 INCH/GM PACKET TOPICAL SCH ×4 (08:53→23:43)
[2016-11-02] MEDS: NYSTATIN 100,000UNIT/GM CREAM 30 GM TUBE TOPICAL SCH ×2 (08:53→20:10)
[2016-11-02] MEDS: CALCIUM CARBONATE 500 MG CHEWABLE PO SCH (08:54)
[2016-11-02] MEDS: ALLOPURINOL 100 MG TAB PO SCH ×2 (08:54→20:09)
[2016-11-02] MEDS: APIXABAN 2.5 MG TABLET PO SCH ×2 (08:54→20:09)
[2016-11-02] MEDS: LACTOBACILLUS ACIDOPH & BULGAR 1 EACH PACKET PO SCH (08:54)
[2016-11-02] MEDS: METOLAZONE 5 MG TAB PO SCH ×2 (08:54→20:09)
[2016-11-02] MEDS: ISOSORBIDE MONONITRATE ER 30 MG TAB.ER.24H PO SCH (08:54)
[2016-11-02] MEDS: TAMSULOSIN 0.4 MG CAP.ER.24H PO SCH ×2 (08:54→20:09)
[2016-11-02] MEDS: ASPIRIN 81 MG CHEW PO SCH (08:54)
[2016-11-02] MEDS: POTASSIUM CHLORIDE ER 20 MEQ TAB.ER PO SCH ×4 (08:54→20:09)
[2016-11-02] MEDS: FERROUS SULFATE 325 MG TAB PO SCH (08:54)
[2016-11-02] MEDS: FAMOTIDINE 20 MG TAB PO SCH (08:54)
[2016-11-02] MEDS: TACROLIMUS 1 MG CAP PO SCH ×3 (08:54→23:43)
[2016-11-02] MEDS: LISINOPRIL 20 MG TAB PO SCH (08:54)
[2016-11-02] MEDS: hydrALAZINE HCL 25 MG TAB PO SCH ×2 (08:54→20:09)
[2016-11-02] MEDS: predniSONE 10 MG TAB PO SCH (08:54)
[2016-11-02] MEDS: DOCUSATE 100 MG CAP PO SCH ×2 (08:55→22:31)
--- NOTE | 2016-11-02 08:57 | P.PN ---
Subjective Patient is seen in follow-up for acute kidney injury on chronic kidney disease. 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 His creatinine peaked at 2.8 on October 29 and is down to 2.12 today. He is maintained on Lasix drip at this time and urine output overnight in the last 24 hours was 7 L. He was also anemic on admission and received a blood transfusion. Hemoglobin stable. He still has significant edema. No vomiting. Noted to be C. diff positive. Oral intake is fair. Does have loose bowel movements but improved. Vital signs are stable. General: The patient appeared well nourished and normally developed. HEENT: Head exam is unremarkable. Neck is without jugular venous distension. LUNGS: Scattered rhonchi at bases. Breath sounds decreased. HEART: Rate and Rhythm are regular. First and second heart sounds normal. No murmurs, rubs or gallops. ABDOMEN: Abdominal exam reveals normal bowel sounds. Non-tender and non- distended. No evidence of peritonitis. EXTREMITITES: 2+ edema. Objective - Vital Signs Vital signs: Vital Signs Temp 97.1 F L 11/02/16 03:07 Pulse 89 11/02/16 03:09 Resp 16 11/02/16 03:09 BP 137/79 11/02/16 03:07 Pulse Ox 93 L 11/02/16 03:07 Intake & Output 11/01/16 11/02/16 11/02/16 18:59 06:59 18:59 Intake Total 973.833 395.917 Output Total 701 6301 802 Balance 272.833 -5905.083 -802 Weight 109.5 kg Intake: IV 520 160 0.9 320 160 Furosemide 250 mg In 200 Sodium Chloride 0.9% 225 ml @ 15 MG/HR 15 mls/hr IVP .[id number] NEW Rx#: [id number] Intake, IV Titration 191.833 235.917 Amount Furosemide 250 mg In 191.833 235.917 Sodium Chloride 0.9% 225 ml @ 15 MG/HR 15 mls/hr IVP .[id number] NEW Rx#: [id number] Oral 262 Output: Urine 700 6300 800 Uretheral ([place]on[place]) 700 6300 Stool 1 1 2 Other: Voiding Method Indwelling Catheter Indwelling Catheter # Bowel Movements 2 - Labs CBC & Chem 7: 11/02/16 05:19 11/02/16 05:19 Labs: Abnormal Lab Results - Last 24 Hours (Table) 11/02/16 11/02/16 Range/Units 05:19 05:19 RBC 2.75 L (4.30-5.90) m/uL Hgb 8.3 L (13.0-17.5) gm/dL Hct 27.0 L (39.0-53.0) % MCHC 30.9 L (31.0-37.0) g/dL RDW 16.8 H (11.5-15.5) % Lymphocytes # 0.6 L (1.0-4.8) k/uL Carbon Dioxide 33 H (22-30) mmol/L BUN 111 H* (9-20) mg/dL Creatinine 2.12 H (0.66-1.25) mg/dL Glucose 104 H (74-99) mg/dL Assessment and Plan Plan: Assessment: #1. Nonoliguric acute kidney injury secondary to ATN secondary to acute anemia as well as cardiorenal syndrome. Creatinine peaked at 2.8 and is down to 2.12 today. #2. 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 #3. Diastolic CHF. #4. Volume overload. Improving. #5. Acute anemia status post blood transfusion. Hemoglobin stable. Iron replete. #6. C. diff colitis on oral vancomycin. #7. Hypokalemia secondary to diuresis. Plan: Continue Lasix drip to 15 mL an hour. Maintain metolazone 5 mg twice daily. Low-salt and 1.5 L fluid restriction. Maintain ensure with meals. Maintain Prograf and prednisone. Strict I's and O's and daily weights. Maintain Aranesp. Repeat electrolytes in the morning. Replace potassium. 40 mEq additional today.
[2016-11-02] MEDS: PROPRANOLOL LA 60 MG CAP.SA.24H PO SCH (12:24)
[2016-11-02] MEDS: LEFLUNOMIDE 20 MG TAB PO SCH (12:24)
--- NOTE | 2016-11-02 14:21 | XR ---
EXAMINATION TYPE: XR chest 1V portable DATE OF EXAM: 11/02/2016 COMPARISON: Prior chest x-ray 10/30/2016 HISTORY: Shortness of breath TECHNIQUE: Single frontal view of the chest is obtained. FINDINGS: There is no focal air space opacity, pleural effusion, or pneumothorax seen. The cardiac silhouette size is stable and enlarged, there are overlying cardiac leads. Interstitium is prominent. Postop changes are noted in the cervical spine is prior exam. Lung volumes are low. The osseous str uctures are intact. IMPRESSION: Findings could be indicative of pulmonary venous hypertension and interstitial edema. Ro tated expiratory exam. Follow-up as indicated.
--- NOTE | 2016-11-02 15:23 | P.PN ---
Subjective Principal diagnosis: Anemia, congestive heart failure This is a pleasant 76-year-old gentleman with known history of hypertension, hyperlipidemia, cirrhotic arthritis, chronic renal failure who follows with Dr. Diallo and at [facility] for his kidneys, patient had a recent hospitalization with C. diff, also has history of CVA, chronic persistent atrial fibrillation. Patient was seen in the office yesterday by Dr. Tellez, he also has been being monitored closely as an outpatient because his hemoglobin has been low. It was noted that his hemoglobin dropped below 7 and he was recommended to come to the hospital for further admission. Patient did receive blood transfusion. He continues to be on IV Lasix drip at 15 mg per hour. Weight is down 1 kg today. Creatinine 0.1. Objective - Vital Signs Vital signs: Vital Signs Temp 97.3 F L 11/02/16 12:00 Pulse 99 11/02/16 12:00 Resp 16 11/02/16 12:00 BP 121/66 11/02/16 12:00 Pulse Ox 92 L 11/02/16 12:00 Intake & Output 11/01/16 11/02/16 11/02/16 18:59 06:59 18:59 Intake Total 973.833 395.917 774 Output Total 701 6301 1877 Balance 272.833 -5905.083 -1103 Weight 109.5 kg Intake: IV 520 160 200 0.9 320 160 80 Furosemide 250 mg In 200 120 Sodium Chloride 0.9% 225 ml @ 15 MG/HR 15 mls/hr IVP .[id number] NEW Rx#: [id number] Intake, IV Titration 191.833 235.917 Amount Furosemide 250 mg In 191.833 235.917 Sodium Chloride 0.9% 225 ml @ 15 MG/HR 15 mls/hr IVP .[id number] NEW Rx#: [id number] Oral 262 574 Output: Urine 700 6300 1875 Uretheral ([place]on[place]) 700 6300 Stool 1 1 2 Other: Voiding Method Indwelling Catheter Indwelling Catheter Indwelling Catheter # Bowel Movements 2 - Exam PHYSICAL EXAMINATION: HEENT: Head is atraumatic, normocephalic. Pupils equal, round. Neck is supple. There is no elevated jugular venous pressure. HEART EXAMINATION: S1 and S2 irregularly irregular a systolic murmur is heard. CHEST EXAMINATION: Lungs reveal diminished air entry to the bases anteriorly. ABDOMEN: Soft, be's, nontender. Bowel sounds are heard. No organomegaly noted. EXTREMITIES: 2+ peripheral pulses with 1+ evidence of peripheral edema and no calf tenderness noted. NEUROLOGIC patient is awake, alert and oriented -2. . - Labs CBC & Chem 7: 11/02/16 05:19 11/02/16 05:19 Labs: Abnormal Lab Results - Last 24 Hours (Table) 11/02/16 11/02/16 Range/Units 05:19 05:19 RBC 2.75 L (4.30-5.90) m/uL Hgb 8.3 L (13.0-17.5) gm/dL Hct 27.0 L (39.0-53.0) % MCHC 30.9 L (31.0-37.0) g/dL RDW 16.8 H (11.5-15.5) % Lymphocytes # 0.6 L (1.0-4.8) k/uL Carbon Dioxide 33 H (22-30) mmol/L BUN 111 H* (9-20) mg/dL Creatinine 2.12 H (0.66-1.25) mg/dL Glucose 104 H (74-99) mg/dL Assessment and Plan Plan: Assessment and plan #1 nephrotic syndrome #2 anemia requiring blood transfusion #3 acute on chronic renal failure #4 hypertension #5 chronic persistent atrial fibrillation #8 borderline diabetes #9 hyperlipidemia #10 prior CVA #11 recent admission with C. diff Plan From cardiology's perspective, we'll follow this patient with you now on an as- needed basis only, please don't hesitate to call with any questions. DNP note has been reviewed, I agree with a documented findings and plan of care. Patient was seen and examined.
[2016-11-02] MEDS: GABAPENTIN 300 MG CAP PO SCH ×2 (16:56→23:43)
[2016-11-02] MEDS: ATORVASTATIN 40 MG TAB PO SCH (20:09)
[2016-11-03 06:01] LABS: Calcium 8.6 mg/dL (8.4-10.2); Potassium 3.7 mmol/L (3.5-5.1)
[2016-11-03] MEDS: VANCOMYCIN ORAL SOLUTION 250 MG/5 ML BOTTLE PO SCH ×4 (06:13→23:31)
[2016-11-03] MEDS: CHERRY FLAVOR 60 ML BOTTLE PO SCH ×4 (06:13→23:31)
[2016-11-03] MEDS ORDERED: POTASSIUM CHLORIDE ER 20 MEQ TAB.ER PO STA (09:00)
--- NOTE | 2016-11-03 09:00 | P.PN ---
Subjective Patient is seen in follow-up for acute kidney injury on chronic kidney disease. 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 His creatinine peaked at 2.8 on October 29 and was down to 2.12 as of yesterday. It is 2.27 today. He is maintained on Lasix drip at this time and urine output overnight in the last 24 hours was 4 L. He was also anemic on admission and received a blood transfusion. Hemoglobin stable. Edema is improving. No vomiting. Noted to be C. diff positive. Oral intake is fair. Does have loose bowel movements but improved. Vital signs are stable. General: The patient appeared well nourished and normally developed. HEENT: Head exam is unremarkable. Neck is without jugular venous distension. LUNGS: Scattered rhonchi at bases. Breath sounds decreased. HEART: Rate and Rhythm are regular. First and second heart sounds normal. No murmurs, rubs or gallops. ABDOMEN: Abdominal exam reveals normal bowel sounds. Non-tender and non- distended. No evidence of peritonitis. EXTREMITITES: 2+ edema. Objective - Vital Signs Vital signs: Vital Signs Temp 97.5 F L 11/03/16 04:00 Pulse 88 11/03/16 04:00 Resp 18 11/03/16 04:00 BP 140/84 11/03/16 04:00 Pulse Ox 93 L 11/03/16 04:00 Intake & Output 11/02/16 11/03/16 11/03/16 18:59 06:59 18:59 Intake Total 1275.75 295.5 280 Output Total 2428 1701 Balance -1152.25 -1405.5 280 Weight 105.9 kg Intake: IV 200 105 280 0.9 80 60 160 Furosemide 250 mg In 120 45 120 Sodium Chloride 0.9% 225 ml @ 15 MG/HR 15 mls/hr IVP .[id number] NEW Rx#: [id number] Intake, IV Titration 164.75 190.5 Amount Furosemide 250 mg In 164.75 190.5 Sodium Chloride 0.9% 225 ml @ 15 MG/HR 15 mls/hr IVP .[id number] NEW Rx#: [id number] Oral 911 Output: Urine 2425 1700 Stool 3 1 Other: Voiding Method Indwelling Catheter Indwelling Catheter - Labs CBC & Chem 7: 06/27/17 05:19 11/03/16 05:23 Labs: Abnormal Lab Results - Last 24 Hours (Table) 11/03/16 Range/Units 05:23 BUN 116 H* (9-20) mg/dL Creatinine 2.27 H (0.66-1.25) mg/dL Glucose 102 H (74-99) mg/dL Assessment and Plan Plan: Assessment: #1. Nonoliguric acute kidney injury secondary to ATN secondary to acute anemia as well as cardiorenal syndrome. Creatinine peaked at 2.8 and was down to 2.12 yesterday. It was 2.27 today. #2. 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 #3. Diastolic CHF. #4. Volume overload. Improving. #5. Acute anemia status post blood transfusion. Hemoglobin stable. Iron replete. #6. C. diff colitis on oral vancomycin. #7. Hypokalemia secondary to diuresis. Plan: I will decrease his Lasix drip to 10 mL an hour. Likely changed to IV Bumex tomorrow. Maintain metolazone 5 mg twice daily. Low-salt and 1.5 L fluid restriction. Maintain ensure with meals. Maintain Prograf and prednisone. Strict I's and O's and daily weights. Maintain Aranesp. Repeat electrolytes in the morning. Replace potassium. 40 mEq additional today.
[2016-11-03] MEDS: hydrALAZINE HCL 25 MG TAB PO SCH ×2 (09:01→21:05)
[2016-11-03] MEDS: POTASSIUM CHLORIDE ER 20 MEQ TAB.ER PO SCH ×2 (09:01→21:05)
[2016-11-03] MEDS: TACROLIMUS 1 MG CAP PO SCH ×3 (09:01→21:05)
[2016-11-03] MEDS: APIXABAN 2.5 MG TABLET PO SCH ×2 (09:02→21:05)
[2016-11-03] MEDS: LACTOBACILLUS ACIDOPH & BULGAR 1 EACH PACKET PO SCH (09:02)
[2016-11-03] MEDS: ASPIRIN 81 MG CHEW PO SCH (09:02)
[2016-11-03] MEDS: ALLOPURINOL 100 MG TAB PO SCH ×2 (09:02→21:04)
[2016-11-03] MEDS: LISINOPRIL 20 MG TAB PO SCH (09:02)
[2016-11-03] MEDS: ISOSORBIDE MONONITRATE ER 30 MG TAB.ER.24H PO SCH (09:02)
[2016-11-03] MEDS: CALCIUM CARBONATE 500 MG CHEWABLE PO SCH (09:02)
[2016-11-03] MEDS: FERROUS SULFATE 325 MG TAB PO SCH (09:02)
[2016-11-03] MEDS: predniSONE 10 MG TAB PO SCH (09:02)
[2016-11-03] MEDS: METOLAZONE 5 MG TAB PO SCH ×2 (09:02→21:05)
[2016-11-03] MEDS: FAMOTIDINE 20 MG TAB PO SCH (09:02)
[2016-11-03] MEDS: TAMSULOSIN 0.4 MG CAP.ER.24H PO SCH ×2 (09:02→21:05)
[2016-11-03] MEDS: DOCUSATE 100 MG CAP PO SCH ×2 (09:03→21:15)
[2016-11-03] MEDS: NITROGLYCERIN OINT 1 INCH/GM PACKET TOPICAL SCH ×4 (09:09→21:04)
[2016-11-03] MEDS: LEFLUNOMIDE 20 MG TAB PO SCH (12:44)
[2016-11-03] MEDS: PROPRANOLOL LA 60 MG CAP.SA.24H PO SCH (12:44)
--- NOTE | 2016-11-03 13:41 | CDI ---
In responding to this query, please exercise your independent professional judgment. The [facility] Coding Staff and Clinical Documentation Specialists appreciate your assistance in clarifying documentation, maintaining compliance with coding guidelines, accurately documenting patients condition and capturing severity of illness. The fact that a question is asked does not imply that any particular answer is desired or expected. Communication forms are a method of clarifying documentation and are not made part of the Legal Health Record. Thank you in advance for your clarification. Last Revision, March 2015 Hector Collier [address] [place] [address] Documentation Clarification Form Date: 11/03/2016 1:32:00 PM From: Katarina Galindo RN, CCDS Admit Date: 10/26/2016 4:45:00 PM Patient Name: Jaiden Chadwick Visit Number: [id number] Dr. Deyvi Peñaloza A diagnosis of anemia lacks specificity to accurately reflect your patients severity of condition and clarification is needed. Patient history/risk factors: Anemia, pre-diabetic, CHF, MARCUS with ATN Clinical Indicators: 10/27 Nephrology Consult: "Nonoliguric acute kidney injury secondary to ATN secondary to acute anemia as well as cardiorenal syndrome. Acute anemia status post blood transfusion." Hemoglobin: 6.9/7.2/7.8 Hematocrit: 22/23.3/24.6 Treatment: 1 u PRBC's Feosol 325mg PO QD Labs Am Daily In order to capture the severity of condition, please clarify the type of anemia and etiology if known: Acute blood loss anemia Acute on chronic blood loss anemia Chronic blood loss anemia Iron deficiency anemia Hemolytic anemia Drug induced anemia Anemia due to malignancy Nutritional anemia Anemia of chronic kidney disease Unable to determine Other, please specify Please document in your progress notes and discharge summary in order to capture severity of illness and risk of mortality. Include clinical findings that support your diagnosis. FYI: Press F11 to launch patient chart. Place X here if this finding has no clinical significance, is not applicable or if you are not able to provide any additional documentation. MTDD
[2016-11-03] MEDS: FUROSEMIDE 250 MG in SODIUM CHLORIDE 0.9% 225 ML IVP SCH ×3 (16:51→18:33)
[2016-11-03] MEDS: NYSTATIN 100,000UNIT/GM CREAM 30 GM TUBE TOPICAL SCH ×2 (16:53→21:16)
[2016-11-03] MEDS: GABAPENTIN 300 MG CAP PO SCH ×2 (17:29→21:04)
[2016-11-03] MEDS: ATORVASTATIN 40 MG TAB PO SCH (21:05)
[2016-11-04] MEDS: CHERRY FLAVOR 60 ML BOTTLE PO SCH ×4 (05:39→23:25)
[2016-11-04] MEDS: VANCOMYCIN ORAL SOLUTION 250 MG/5 ML BOTTLE PO SCH ×4 (05:39→23:24)
[2016-11-04 06:50] LABS: Calcium 8.6 mg/dL (8.4-10.2); Magnesium 1.7 mg/dL (1.6-2.3); Potassium 3.8 mmol/L (3.5-5.1)
--- NOTE | 2016-11-04 08:57 | P.PN ---
Subjective Patient is seen in follow-up for acute kidney injury on chronic kidney disease. 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 His creatinine peaked at 2.8 on October 29 and was down to 2.12. It is 2.5 today. He is maintained on Lasix drip at this time and is maintaining net negative fluid balance. He was also anemic on admission and received a blood transfusion. Hemoglobin stable. Edema is improving. No vomiting. Noted to be C. diff positive. Oral intake is fair. Does have loose bowel movements but improved. Denies chest pain. Vital signs are stable. General: The patient appeared well nourished and normally developed. HEENT: Head exam is unremarkable. Neck is without jugular venous distension. LUNGS: Scattered rhonchi at bases. Breath sounds decreased. HEART: Rate and Rhythm are regular. First and second heart sounds normal. No murmurs, rubs or gallops. ABDOMEN: Abdominal exam reveals normal bowel sounds. Non-tender and non- distended. No evidence of peritonitis. EXTREMITITES: 2+ edema. Objective - Vital Signs Vital signs: Vital Signs Temp 97.7 F 11/04/16 04:00 Pulse 79 11/04/16 04:00 Resp 20 11/04/16 04:00 BP 116/65 11/04/16 04:00 Pulse Ox 92 L 11/04/16 04:00 Intake & Output 11/03/16 11/04/16 11/04/16 18:59 06:59 18:59 Intake Total 859.5 385 Output Total 1350 Balance 859.5 -965 Weight 105.9 kg 104.6 kg Intake: IV 700 385 0.9 400 220 Furosemide 250 mg In 300 165 Sodium Chloride 0.9% 225 ml @ 10 MG/HR 10 mls/hr IVP .Q24H NEW Rx#: [id number] Intake, IV Titration 59.5 Amount Furosemide 250 mg In 59.5 Sodium Chloride 0.9% 225 ml @ 10 MG/HR 10 mls/hr IVP .Q24H NEW Rx#: [id number] Oral 100 Output: Urine 1350 Other: Voiding Method Indwelling Catheter Indwelling Catheter # Bowel Movements 1 - Labs CBC & Chem 7: 11/02/16 05:19 11/04/16 05:27 Labs: Abnormal Lab Results - Last 24 Hours (Table) 11/04/16 Range/Units 05:27 Carbon Dioxide 31 H (22-30) mmol/L BUN 120 H* (9-20) mg/dL Creatinine 2.50 H (0.66-1.25) mg/dL Assessment and Plan Plan: Assessment: #1. Nonoliguric acute kidney injury secondary to ATN secondary to acute anemia as well as cardiorenal syndrome. Creatinine peaked at 2.8 and was down to 2.12. It was 2.5 today. #2. 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 #3. Diastolic CHF. #4. Volume overload. Improving. #5. Acute anemia status post blood transfusion. Hemoglobin stable. Iron replete. #6. C. diff colitis on oral vancomycin. #7. Hypokalemia secondary to diuresis. Improved. Plan: Discontinue Lasix drip. Start IV Bumex 2 mg twice daily. Maintain metolazone 5 mg twice daily. Low-salt and 1.5 L fluid restriction. Maintain ensure with meals. Maintain Prograf and prednisone. Strict I's and O's and daily weights. Maintain Aranesp. Repeat electrolytes in the morning.
[2016-11-04] MEDS ORDERED: BUMETANIDE 0.25 MG/ML 10 ML VIAL IV SCH (09:00)
[2016-11-04] MEDS: ALLOPURINOL 100 MG TAB PO SCH ×2 (10:36→21:33)
[2016-11-04] MEDS: TAMSULOSIN 0.4 MG CAP.ER.24H PO SCH ×2 (10:37→21:33)
[2016-11-04] MEDS: APIXABAN 2.5 MG TABLET PO SCH ×2 (10:37→21:33)
[2016-11-04] MEDS: ASPIRIN 81 MG CHEW PO SCH (10:37)
[2016-11-04] MEDS: METOLAZONE 5 MG TAB PO SCH ×2 (10:37→21:33)
[2016-11-04] MEDS: DOCUSATE 100 MG CAP PO SCH ×3 (10:37→21:46)
[2016-11-04] MEDS: POTASSIUM CHLORIDE ER 20 MEQ TAB.ER PO SCH ×2 (10:37→21:33)
[2016-11-04] MEDS: LISINOPRIL 20 MG TAB PO SCH (10:37)
[2016-11-04] MEDS: FAMOTIDINE 20 MG TAB PO SCH (10:38)
[2016-11-04] MEDS: FERROUS SULFATE 325 MG TAB PO SCH (10:38)
[2016-11-04] MEDS: CALCIUM CARBONATE 500 MG CHEWABLE PO SCH (10:38)
[2016-11-04] MEDS: TACROLIMUS 1 MG CAP PO SCH ×3 (10:38→21:33)
[2016-11-04] MEDS: BUMETANIDE 0.25 MG/ML 10 ML VIAL IV SCH ×2 (10:38→21:34)
[2016-11-04] MEDS: ISOSORBIDE MONONITRATE ER 30 MG TAB.ER.24H PO SCH (10:38)
[2016-11-04] MEDS: LACTOBACILLUS ACIDOPH & BULGAR 1 EACH PACKET PO SCH (10:40)
[2016-11-04] MEDS: hydrALAZINE HCL 25 MG TAB PO SCH ×2 (10:40→21:33)
[2016-11-04] MEDS: predniSONE 10 MG TAB PO SCH (10:41)
[2016-11-04] MEDS: NYSTATIN 100,000UNIT/GM CREAM 30 GM TUBE TOPICAL SCH ×2 (10:41→21:34)
[2016-11-04] MEDS: NITROGLYCERIN OINT 1 INCH/GM PACKET TOPICAL SCH ×4 (10:58→21:45)
[2016-11-04] MEDS: LEFLUNOMIDE 20 MG TAB PO SCH (13:18)
[2016-11-04] MEDS: PROPRANOLOL LA 60 MG CAP.SA.24H PO SCH (13:19)
[2016-11-04] MEDS: DARBEPOETIN ALFA 40 MCG/0.4 ML SYRINGE SQ SCH (13:19)
[2016-11-04] MEDS: GABAPENTIN 300 MG CAP PO SCH ×2 (16:48→21:33)
[2016-11-04] MEDS: ATORVASTATIN 40 MG TAB PO SCH (21:33)
[2016-11-05] MEDS: VANCOMYCIN ORAL SOLUTION 250 MG/5 ML BOTTLE PO SCH ×4 (05:28→23:05)
[2016-11-05] MEDS: CHERRY FLAVOR 60 ML BOTTLE PO SCH ×4 (05:28→23:05)
[2016-11-05 06:19] LABS: Anisocytosis Slight; Basophils % (A) 0 %; CH 30.4; CHCM 31.5; Eosinophils # (A) 0.2 k/uL (0-0.7); Eosinophils % (A) 3 %; HCT 25.1 % (39.0-53.0); HDW 2.46; HGB 8.1 gm/dL (13.0-17.5); Hypochromasia Slight; Luc % (Auto) 3; Lymphocytes # (A) 0.7 k/uL (1.0-4.8); Lymphocytes % (A) 9 %; MCH 31.3 pg (25.0-35.0); MCHC 32.3 g/dL (31.0-37.0); MCV 96.8 fL (80.0-100.0); Macrocytosis Slight; Mean Platelet Volume 7.4; Monocytes # (A) 0.4 k/uL (0-1.0); Monocytes % (A) 5 %; Neutrophils # (A) 6.3 k/uL (1.3-7.7); Neutrophils % (A) 81 %; RDW 16.5 % (11.5-15.5); WBC 7.8 k/uL (3.8-10.6)
[2016-11-05 06:31] LABS: Calcium 8.3 mg/dL (8.4-10.2); Magnesium 1.8 mg/dL (1.6-2.3); Potassium 3.7 mmol/L (3.5-5.1)
--- NOTE | 2016-11-05 07:46 | P.PN ---
Subjective Patient is seen in follow-up for acute kidney injury on chronic kidney disease. 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 His creatinine peaked at 2.8 on October 29 and was down to 2.12. It is back up to 2.8 today. He was maintained on Lasix drip for several days and was changed over to IV Bumex yesterday. He was also anemic on admission and received a blood transfusion. Hemoglobin stable. Edema is improving. No vomiting. Noted to be C. diff positive. Oral intake is fair. Does have loose bowel movements but improved. Denies chest pain. Vital signs are stable. General: The patient appeared well nourished and normally developed. HEENT: Head exam is unremarkable. Neck is without jugular venous distension. LUNGS: Scattered rhonchi at bases. Breath sounds decreased. HEART: Rate and Rhythm are regular. First and second heart sounds normal. No murmurs, rubs or gallops. ABDOMEN: Abdominal exam reveals normal bowel sounds. Non-tender and non- distended. No evidence of peritonitis. EXTREMITITES: 2+ edema. Objective - Vital Signs Vital signs: Vital Signs Temp 97.4 F L 11/05/16 04:00 Pulse 76 11/05/16 04:00 Resp 16 11/05/16 04:00 BP 129/88 11/05/16 04:00 Pulse Ox 92 L 11/05/16 04:00 Intake & Output 11/04/16 11/05/16 11/05/16 18:59 06:59 18:59 Output Total 903 901 Balance -903 -901 Weight 104.6 kg 105.5 kg Output: Urine 900 900 Stool 3 1 Other: Voiding Method Indwelling Catheter Indwelling Catheter # Voids 0 # Bowel Movements 2 - Labs CBC & Chem 7: 11/05/16 05:22 11/05/16 05:22 Labs: Abnormal Lab Results - Last 24 Hours (Table) 11/05/16 11/05/16 Range/Units 05:22 05:22 RBC 2.60 L (4.30-5.90) m/uL Hgb 8.1 L (13.0-17.5) gm/dL Hct 25.1 L (39.0-53.0) % RDW 16.5 H (11.5-15.5) % Lymphocytes # 0.7 L (1.0-4.8) k/uL Carbon Dioxide 34 H (22-30) mmol/L BUN 120 H* (9-20) mg/dL Creatinine 2.84 H (0.66-1.25) mg/dL Glucose 106 H (74-99) mg/dL Calcium 8.3 L (8.4-10.2) mg/dL Assessment and Plan Plan: Assessment: #1. Nonoliguric acute kidney injury secondary to ATN secondary to acute anemia as well as cardiorenal syndrome. Creatinine rising the last 2-3 days and is up to 2.8 today which is due to diuresis. #2. 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 #3. Diastolic CHF. #4. Volume overload. Improving. #5. Acute anemia status post blood transfusion. Hemoglobin stable. Iron replete. #6. C. diff colitis on oral vancomycin. #7. Hypokalemia secondary to diuresis. Improved. Plan: Continue IV Bumex 2 mg twice daily for another day. Can be changed over to oral diuretics tomorrow. Maintain metolazone 5 mg twice daily. Low-salt and 1.5 L fluid restriction. Maintain ensure with meals. Maintain Prograf and prednisone. Strict I's and O's and daily weights. Maintain Aranesp. Repeat electrolytes in the morning.
--- NOTE | 2016-11-05 08:00 | PN ---
DATE OF SERVICE: 11/04/2016 INTERVAL HISTORY: Mr. 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 Bradford's office. Patient's hemoglobin was 7 and patient's hemoglobin level improved and has been stable with 1 uint of PRBC, otherwise, patient does have generalized swelling/anasarca and was treated with Lasix drip initially. Currently, diuretics have been changed to Bumex as well as metolazone. Nephrology and Cardiology is following this patient. Patient is significantly improved with IV diuresis. Currently, breathing is much improved now. Denied any complaints of chest pain or short of breath. No nausea, vomiting, abdominal pain. Otherwise, renal function showed increased creatinine to 2.5 today. The diuretics have been changed to p.o. today. Otherwise, patient is generally complaining of chest pain, short of breath, no acute overnight issues. No nausea, vomiting, abdominal pain. Patient is also being treated for recurrent C. diff infection with vancomycin p.o. REVIEW OF SYSTEMS: Negative except as above. Current medications reviewed. PHYSICAL EXAMINATION: A 76-year-old male lying in the bed, awake, alert, oriented x3. Patient in no apparent distress. VITALS: Blood pressure is 132/65, pulse is 94, respirations is 16, temperature afebrile. Pulse ox is 94% on room air. HEENT: Atraumatic, normocephalic. Neck is supple with no JVD. CVS EXAM: No S1 , S2 heard, no gallop, no rub. LUNGS: Bilateral air entry is present. No wheezing, no crackles, nonlabored breathing. ABDOMEN: Soft, nontender. Bowel sounds are present. [employer]: Awake, alert x3. No focal deficits. EXTREMITIES: Patient does have 2+ edema. Pulses palpable bilaterally. PSYCHIATRY: Cooperative. LABORATORY DATA: Sodium 141, potassium 3.8, chloride 101, bicarb 31, BUN 120, creatinine 2.5, magnesium 1.7. IMPRESSION: 1. Acute on chronic congestive heart failure exacerbation and function. 2. Generalized swelling/anasarca like due to congestive heart failure exacerbation as well as nephrotic syndrome. 3. Symptomatic anemia requiring blood transfusion, hemoglobin is 8.3 now. 4. Recurrent Clostridium difficile infection, currently on p.o. vancomycin. Patient was seen by Dr. Jay previously. No diarrhea currently. 5. Acute on chronic kidney disease secondary to acute tubular necrosis along with pneumonia and possible cardiorenal syndrome. 6. Chronic kidney disease stage 3B secondary to biopsy proven, focal segmental glomerular sclerosis, currently on ( ) therapy with prednisone and Tacrolimus , on follow with Dr. Diallo and also at [facility]. 7. Hypertension. 8. Chronic persistent atrial fibrillation, currently on anticoagulant with Eliquis. 9. Hyperlipidemia. 10. Elevated troponin level secondary to acute kidney injury and demand mismatch , unlikely ACS. 11. Borderline diabetes mellitus. 12. History of cerebrovascular accident, no residual weakness. 13. Morbid obesity. DISCUSSION AND PLAN: Patient will be continued on Bumex as well as metolazone. Will follow with renal function. Continue to monitor H&H, increase ambulation and PT, OT. Continue with the vancomycin p.o. for ( ). Will replace magnesium and follow up and further recommendations based on clinical course. [facility]
[2016-11-05] MEDS: ASPIRIN 81 MG CHEW PO SCH (09:48)
[2016-11-05] MEDS: DOCUSATE 100 MG CAP PO SCH ×2 (09:49→21:28)
--- NOTE | 2016-11-05 09:52 | PN ---
DATE OF SERVICE: 11/02/2016 Mr. 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 Bradford's office. The patient underwent one unit of blood transfusion with improvement in hemoglobin. Currently, hemoglobin is stable now. Otherwise, the patient continues to be on ( ) drip for the bilateral leg swelling. Leg swelling is much improved now. Renal function is improving. Currently, denied any complaints of chest pain. No worsening short of breath. No chest pain. No nausea, vomiting, abdominal pain. ( ) MUSCULOSKELETAL: Negative. Other 14-point review of systems negative except the above. CURRENT MEDICATIONS: Reviewed. PHYSICAL EXAMINATION: A 76-year-old male ( ) appears to be in no apparent distress. VITALS: Blood pressure is 121/66, pulse is 99, respirations 16, temperature afebrile, pulse ox 92% on room air. HEENT: Atraumatic, normocephalic. NECK: Supple. No JVD. CVS EXAM: S1 and S2 heard. No murmurs, no gallop, no rub. LUNGS: Bilateral air entry is present. No wheezing. Minimal crackles at the bases. Nonlabored breathing. ABDOMEN: Soft, nontender. Bowel sounds are present. Obese. 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 No focal deficits. EXTREMITIES: Bilateral lower extremity 2+ edema. Pulses palpable bilaterally. No clubbing or cyanosis. PSYCHIATRY: Cooperative. LABORATORY DATA: WBC 8.2, hemoglobin 8.3, platelets 190. Sodium 141, potassium 3.6, chloride 101, bicarb 33. BUN 111, creatinine 2.12. Magnesium 1.8. IMPRESSION: 1. Acute on chronic congestive heart failure with diastolic dysfunction, improving with IV Lasix drip. 2. Symptomatic anemia ( ) transfusion. Hemoglobin is stable at this time. 3. ( ) on p.o. vancomycin. 4. Acute on chronic kidney injury secondary to acute tubular necrosis as well as anemia and ( ). 5. Chronic kidney disease stage IIIB secondary to biopsy proven focal segmental glomerulosclerosis.Currently on immunosuppressive therapy with prednisone and tacrolimus and follows with Dr. Diallo as an outpatient and also at the [facility]. 6. Hypertension. 7. Chronic persistent atrial fibrillation currently on anticoagulation with Eliquis. 8. Hyperlipidemia. 9. Elevated troponin level, secondary to acute kidney injury and demand mismatch. 10. Borderline diabetes mellitus. 11. History of cerebrovascular accident. 12. Morbid obesity with body mass index of 39.7. DISCUSSION AND PLAN: The patient will be continued on insulin drip and continue to monitor renal function ( ). Otherwise, patient is symptomatically improved now. Will continue the current management and followup closely. Further recommendations based on the clinical course. ELAINED
[2016-11-05] MEDS: CALCIUM CARBONATE 500 MG CHEWABLE PO SCH (09:55)
[2016-11-05] MEDS: BUMETANIDE 0.25 MG/ML 10 ML VIAL IV SCH ×2 (09:55→21:26)
[2016-11-05] MEDS: hydrALAZINE HCL 25 MG TAB PO SCH ×2 (09:55→21:26)
[2016-11-05] MEDS: FERROUS SULFATE 325 MG TAB PO SCH (09:55)
[2016-11-05] MEDS: ALLOPURINOL 100 MG TAB PO SCH ×2 (09:55→21:27)
[2016-11-05] MEDS: APIXABAN 2.5 MG TABLET PO SCH ×2 (09:55→21:26)
[2016-11-05] MEDS: TACROLIMUS 1 MG CAP PO SCH ×3 (09:55→21:30)
[2016-11-05] MEDS: METOLAZONE 5 MG TAB PO SCH ×2 (09:55→21:27)
[2016-11-05] MEDS: POTASSIUM CHLORIDE ER 20 MEQ TAB.ER PO SCH ×2 (09:55→21:26)
[2016-11-05] MEDS: predniSONE 10 MG TAB PO SCH (09:55)
[2016-11-05] MEDS: NYSTATIN 100,000UNIT/GM CREAM 30 GM TUBE TOPICAL SCH ×2 (09:56→21:27)
[2016-11-05] MEDS: ISOSORBIDE MONONITRATE ER 30 MG TAB.ER.24H PO SCH (09:56)
[2016-11-05] MEDS: NITROGLYCERIN OINT 1 INCH/GM PACKET TOPICAL SCH ×4 (09:56→21:26)
[2016-11-05] MEDS: LACTOBACILLUS ACIDOPH & BULGAR 1 EACH PACKET PO SCH (09:56)
[2016-11-05] MEDS: TAMSULOSIN 0.4 MG CAP.ER.24H PO SCH ×2 (09:56→21:26)
[2016-11-05] MEDS: FAMOTIDINE 20 MG TAB PO SCH (09:56)
[2016-11-05] MEDS: LISINOPRIL 20 MG TAB PO SCH (09:56)
[2016-11-05] MEDS: LEFLUNOMIDE 20 MG TAB PO SCH (12:46)
[2016-11-05] MEDS: PROPRANOLOL LA 60 MG CAP.SA.24H PO SCH (12:46)
[2016-11-05] MEDS: traMADol 50 MG TAB PO PRN (16:57)
[2016-11-05] MEDS: GABAPENTIN 300 MG CAP PO SCH ×2 (16:58→21:26)
[2016-11-05] MEDS: ATORVASTATIN 40 MG TAB PO SCH (21:26)
[2016-11-06] MEDS: VANCOMYCIN ORAL SOLUTION 250 MG/5 ML BOTTLE PO SCH ×2 (05:44→12:23)
[2016-11-06] MEDS: CHERRY FLAVOR 60 ML BOTTLE PO SCH ×3 (05:44→17:01)
[2016-11-06 06:37] LABS: Calcium 8.2 mg/dL (8.4-10.2); Potassium 3.7 mmol/L (3.5-5.1)
--- NOTE | 2016-11-06 08:11 | P.PN ---
Subjective Patient is seen for follow-up for acute kidney injury on top of chronic kidney disease. Patient was admitted to the hospital with severe volume overload significant edema and the his stool for occult blood was positive as outpatient. Hemoglobin was at 7 g/dL when he was initially admitted. Patient has been maintained on IV Bumex his. His volume status has improved. He was also noted to be positive for C. diff toxin. Patient has had 3 previous episodes of C. diff colitis and he has been treated with oral vancomycin. He was maintained on probiotics as outpatient and his stools had improved to normal consistency prior to this admission. This morning patient denies any chest pains or shortness of breath his appetite is fair. He has been sitting out of bed. Bowel movements are loose but not very watery. During his previous admission we had held the Prograf secondary to severe bout of C. diff colitis I will decrease his Prograf this admission as well. Of note, stool was negative for occult blood on this admission. Objective - Vital Signs Vital signs: Vital Signs Temp 97.0 F L 11/06/16 03:53 Pulse 66 11/06/16 03:53 Resp 14 11/06/16 03:53 BP 145/82 11/06/16 03:53 Pulse Ox 94 L 11/06/16 07:00 Intake & Output 11/05/16 11/06/16 11/06/16 18:59 06:59 18:59 Output Total 3 851 Balance -3 -851 Weight 105.5 kg 106 kg Output: Urine 850 Stool 3 1 Other: Voiding Method Indwelling Catheter Indwelling Catheter # Voids 0 - Exam On examination patient is comfortable awake is not in any acute distress. Blood pressure is 145/82. Heart rate 66/m. Patient is afebrile. HEENT atraumatic no lymphatic pupils are equal round JVP is not elevated Lymph nodes are not palpable Examination of the heart S1 and S2 Examination lungs bilateral breath sounds are heard. Decreased breath sounds bases Abdomen is soft obese nontender Examination lower extremities shows edema 1+ bilaterally. Chronic skin changes are noted. Deformities are noted in the hands. CATERPILLAR DRIVER exam is grossly intact. Patient is moving all 4 extremities. - Labs CBC & Chem 7: 11/05/16 05:22 11/06/16 05:33 Labs: Abnormal Lab Results - Last 24 Hours (Table) 11/06/16 Range/Units 05:33 Carbon Dioxide 33 H (22-30) mmol/L BUN 118 H* (9-20) mg/dL Creatinine 2.75 H (0.66-1.25) mg/dL Glucose 102 H (74-99) mg/dL Calcium 8.2 L (8.4-10.2) mg/dL Assessment and Plan Plan: Assessment 1. Acute kidney injury secondary to ATN, diuresis. Serum creatinine down the little bit to 2.75 from 2.8 yesterday. Bumex is at 2 mg IV every 12 hours. Patient is also on the lisinopril which I will decrease since his blood pressure has not been significantly high. Decrease the Bumex to 1 mg IV every 12 hours as well. 2. Chronic kidney disease secondary to biopsy-proven FSGS maintained on Prograf. I will decrease the Prograf further in view of the recurrent C. diff colitis. Continue with the RICK inhibitor's but decrease dose to half the amount. Continue with the prednisone. 3. Recurrent C. diff colitis currently maintained on oral vancomycin and will proceed with infectious disease consult. Decrease Prograf. 4. Anemia, multifactorial with previous stool positive for culture blood but this time his stool is negative for occult blood. Patient is maintained on aranesp I will check iron studies if not done. Transfuse 1 unit packed RBCs if hemoglobin drops below 8. 5. 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 6. volume overload currently improved significantly. Plan Decrease Prograf, decrease Bumex. Consult ID and repeat labs in a.m. Encourage increased oral intake.
[2016-11-06] MEDS: DOCUSATE 100 MG CAP PO SCH ×2 (09:16→21:32)
[2016-11-06] MEDS: APIXABAN 2.5 MG TABLET PO SCH ×2 (09:26→21:31)
[2016-11-06] MEDS: hydrALAZINE HCL 25 MG TAB PO SCH ×2 (09:27→21:31)
[2016-11-06] MEDS: FERROUS SULFATE 325 MG TAB PO SCH (09:27)
[2016-11-06] MEDS: ALLOPURINOL 100 MG TAB PO SCH ×2 (09:27→21:31)
[2016-11-06] MEDS: TACROLIMUS 1 MG CAP PO SCH (09:27)
[2016-11-06] MEDS: FAMOTIDINE 20 MG TAB PO SCH (09:28)
[2016-11-06] MEDS: CALCIUM CARBONATE 500 MG CHEWABLE PO SCH (09:28)
[2016-11-06] MEDS: BUMETANIDE 0.25 MG/ML 10 ML VIAL IV SCH ×2 (09:28→21:31)
[2016-11-06] MEDS: ISOSORBIDE MONONITRATE ER 30 MG TAB.ER.24H PO SCH (09:29)
[2016-11-06] MEDS: ASPIRIN 81 MG CHEW PO SCH ×2 (09:30→09:46)
[2016-11-06] MEDS: METOLAZONE 5 MG TAB PO SCH ×2 (09:30→21:31)
[2016-11-06] MEDS: TAMSULOSIN 0.4 MG CAP.ER.24H PO SCH ×2 (09:31→21:31)
[2016-11-06] MEDS: predniSONE 10 MG TAB PO SCH (09:31)
[2016-11-06] MEDS: POTASSIUM CHLORIDE ER 20 MEQ TAB.ER PO SCH ×2 (09:31→21:31)
[2016-11-06] MEDS: LISINOPRIL 10 MG TAB PO SCH (09:37)
[2016-11-06] MEDS: LACTOBACILLUS ACIDOPH & BULGAR 1 EACH PACKET PO SCH (09:37)
[2016-11-06] MEDS: NITROGLYCERIN OINT 1 INCH/GM PACKET TOPICAL SCH ×4 (09:37→21:39)
[2016-11-06] MEDS: NYSTATIN 100,000UNIT/GM CREAM 30 GM TUBE TOPICAL SCH ×2 (09:47→21:30)
--- NOTE | 2016-11-06 12:19 | PN ---
DATE OF SERVICE: 11/03/2016 INTERVAL HISTORY: Mr. Chadwick is a 76-year-old male with a known history of hypertension, hyperlipidemia, osteoarthritis, CKD stage IIIB, biopsy-proven, FSGS and CHF with diastolic dysfunction. He was admitted to the hospital with low hemoglobin from Dr. Bradford's office. The patient was found to have hemoglobin of 7 and underwent one unit of blood transfusion. His hemoglobin has jumped to more than 8 today. Otherwise, the patient is fluid-overloaded, possibly due to acute on chronic CHF with diastolic dysfunction as well as underlying nephrotic syndrome. The patient is currently on IV Lasix. Leg swelling and fluid overload are significantly improved now. Otherwise, he denied any complaint of chest pain or shortness of breath. Patient is able to sit in the chair. No acute overnight issues. Nephrology and Cardiology are following the patient. REVIEW OF SYSTEMS: CONSTITUTIONAL: No fever ( ). RESPIRATORY: No cough or sputum production. CARDIOVASCULAR: No chest pain. No shortness of breath. ABDOMEN: No nausea, vomiting. No abdominal pain. GENITOURINARY: Negative. ENDOCRINE: Negative. PSYCHIATRY: Negative. SKIN: Negative. All other 14-point review of systems negative except as above. Current medications reviewed. PHYSICAL EXAMINATION: Kzutnyr-mkny-gldn-old male lying in the bed. Awake, alert , oriented x3. Appears to be in no distress. VITALS: Blood pressure 102/60, pulse 85, respirations 18, temperature afebrile, pulse ox 95% on room air. HEENT: Atraumatic, normocephalic. NECK: Supple. No JVD. CVS EXAM: S1, S2 heard. No murmurs. No gallops. LUNGS: Bilateral air entry is present. No wheezing. No crackles. Non-labored breathing. ABDOMEN: Soft, non-tender. Bowel sounds are present. 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 No focal deficit. Able to move all his extremities. EXTREMITIES: Patient has 2+ edema. Pulses are palpable bilaterally. No clubbing or cyanosis. PSYCHIATRIC: Cooperative. LABORATORY DATA: Sodium 142, potassium 3.7, chloride 101, bicarb 30. BUN 116, creatinine 2.27. Calcium 8.6. IMPRESSION: 1. Fluid overload due to acute on chronic congestive heart failure with diastolic dysfunction and possible underlying nephrotic syndrome. 2. Symptomatic anemia requiring blood transfusion. 3. Acute on chronic blood loss anemia. 4. Acute Clostridium difficile infection, currently on oral vancomycin. 5. Acute on chronic kidney disease secondary to acute tubular necrosis as well as pneumonia and cardiorenal syndrome. 6. Chronic kidney disease, stage IIIB, biopsy-proven, focal segmental glomerulosclerosis, currently on immunosuppressive therapy with prednisone and tacrolimus and followed by Dr. Diallo and also at the [facility]. 7. Hypertension. 8. Chronic persistent atrial fibrillation, current on anticoagulation with Eliquis. 9. Hyperlipidemia. 10. Elevated troponin level secondary to acute kidney injury and demand mismatch. 11. Borderline diabetes mellitus. 12. History of cerebrovascular accident. 13. Morbid obesity with a body mass index of 39. DISCUSSION AND PLAN: Patient is currently on IV Lasix. Follow up renal function. Continue to follow. Leg swelling and generalized anasarca much improved now. Nephrology is following this patient. Will possibly change Lasix to pills. MTDD
[2016-11-06] MEDS: LEFLUNOMIDE 20 MG TAB PO SCH (12:20)
[2016-11-06] MEDS: PROPRANOLOL LA 60 MG CAP.SA.24H PO SCH (12:20)
[2016-11-06] MEDS: GABAPENTIN 300 MG CAP PO SCH ×2 (15:34→21:31)
--- NOTE | 2016-11-06 16:36 | P.CONS ---
History of Present Illness - Reason for Consult Consult date: 11/06/16 - Chief Complaint Diarrhea - History of Present Illness 76-year-old male with a history of psoriatic arthritis who is here significant difficulties with his skin and joints in the past. In April he had a significant cellulitis of his leg. He responded well to antibiotic therapy. However then developed diarrhea. Was on evidence of Clostridium difficile colitis. It appears since that time he's had several bouts of diarrhea that have been thought to be C. diff related. Review of the laboratory shows evidence of a C. diff positive of 10/28/2016. The patient receiving vancomycin therapy with ongoing diarrhea. Because of this the infectious diseases consultation was requested. Patient is quite a poor historian. Is able to relate a still having some diarrhea. He would like just to go home. He started being hospitalized and being sick. Review of Systems HEENT:Denies headache or acute visual change. Denies sinus or mouth discomforts. Denies neck stiffness or pain. Denies significant oral cavity pain. Denies difficulty on swallowing. Lungs: Denies significant shortness of breath, cough, sputum production, or hemoptysis. Cardiovascular: Denies significant shortness of breath, chest pain, chest wall pain, orthopnea, dyspnea on exertion, syncope Gastrointestinal:Denies nausea, vomiting, diarrhea, constipation, hematemesis, melena, hematochezia. No no significant change of bowel habit noticed. Musculoskeletal: Chronic severe pain to his joints. Has been on Arava for the treatment of his severe arthritis. Good improvement to the pain and discomfort to his arms and hands but still has chronic severe back pain. Skin: He has a chronic changes to the skin from the psoriatic arthritis. But his new swelling pain and erythema to the left leg. Neuro: Denies headache or visual change. Denies any new onset weakness or difficulty with ambulation. Denies falls or seizures. Psychiatric:Denies anxiety or depression. Endocrine: Denies significant fatigue, denies significant weight loss or weight gain. Past Medical History Past Medical History: Atrial Fibrillation, Cancer, Heart Failure, Hearing Disorder / Deafness, Hyperlipidemia, Hypertension, Musculoskeletal Disorder, Renal Disease Additional Past Medical History / Comment(s): HX C-DIFF 09-04-16. skin ca. psoriatic arthritis. uti, nephrotic syndrome. chronic back pain. DENIES GOUT. PAST HX OF MIGRAINES. HX anemia,iron infusion. patient states he is pre- diabetic. EDEMA .edward torn rotator cuffs(had a previous sx on rt side but injured it again) History of Any Multi-Drug Resistant Organisms: None Reported Past Surgical History: Back Surgery, Hernia Repair, Orthopedic Surgery Additional Past Surgical History / Comment(s): L4-5 LUMBAR FUSION-(total of 4 back surguries)NECK FUSION. RT ROTATOR CUFF," kidney bx-neg". Surgical scar from skin cancer/surgery on right side of head. MULT PAIN PROC, LAST 05/12/16. Past Anesthesia/Blood Transfusion Reactions: No Reported Reaction Additional Psychological History / Comment(s): lives in the family home with his . 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 No experience. No international travel. No animal exposures. No ill contacts. Denies any significant tobacco or alcohol use. No recreational drug use. Smoking Status: Never smoker Smoking Status: Never smoker - Past Family History Father Additional Family Medical History / Comment(s): as a results of burn injuries in work related accident Mother Additional Family Medical History / Comment(s): at age 84 from heart problems Sister(s) Family Medical History: Cancer Additional Family Medical History / Comment(s): mother-- HTN. brother-- Diabetes, kidney problems Medications and Allergies Home Medications and Allergies Comment(s): Current Medications Allopurinol (Zyloprim) 100 mg PO BID [facility] Last Admin: 11/06/16 09:27 Dose: 100 mg Apixaban (Eliquis) 2.5 mg PO BID [facility] Last Admin: 11/06/16 09:26 Dose: 2.5 mg Atorvastatin Calcium (Lipitor) 40 mg PO HS [facility] Last Admin: 11/05/16 21:26 Dose: 40 mg Bumetanide (Bumex) 1 mg IV Q12HR [facility] Last Admin: 11/06/16 09:28 Dose: 1 mg Calcium Carbonate/Glycine (Tums) 500 mg PO DAILY [facility] Last Admin: 11/06/16 09:28 Dose: 500 mg Daigle Syrup (Daigle Syrup) 5 ml PO Q6HR [facility] Last Admin: 11/06/16 12:23 Dose: 5 ml Darbepoetin Arnav (Aranesp) 40 mcg SQ Q7D [facility] Last Admin: 11/04/16 13:19 Dose: 40 mcg Docusate Sodium (Colace) 100 mg PO BID [facility] Last Admin: 11/06/16 09:16 Dose: Not Given Ergocalciferol (Vitamin D2) 50,000 unit PO DEAL [facility] Last Admin: 10/31/16 10:38 Dose: Not Given Famotidine (Pepcid) 20 mg PO DAILY [facility] Last Admin: 11/06/16 09:28 Dose: 20 mg Ferrous Sulfate (Feosol) 325 mg PO DAILY [facility] Last Admin: 11/06/16 09:27 Dose: 325 mg Gabapentin (Neurontin) 600 mg PO BID@1600,2200 [facility] Last Admin: 11/06/16 15:34 Dose: 600 mg Hydralazine HCl (Apresoline) 25 mg PO BID [facility] Last Admin: 11/06/16 09:27 Dose: 25 mg Isosorbide Mononitrate (Imdur) 30 mg PO DAILY [facility] Last Admin: 11/06/16 09:29 Dose: 30 mg Lactobacillus Acidoph/Bulgaricus (Lactinex) 1 each PO DAILY [facility] Last Admin: 11/06/16 09:37 Dose: 1 each Leflunomide (Arava) 20 mg PO AC-LUNCH [facility] Last Admin: 11/06/16 12:20 Dose: 20 mg Lisinopril (Zestril) 10 mg PO DAILY [facility] Last Admin: 11/06/16 09:37 Dose: 10 mg Metolazone (Zaroxolyn) 5 mg PO BID [facility] Last Admin: 11/06/16 09:30 Dose: 5 mg Nitroglycerin (Nitro-Bid Oint) 1 inch TOPICAL QID [facility] Last Admin: 11/06/16 12:24 Dose: 1 inch Nystatin (Mycostatin Cream) 1 applic TOPICAL BID [facility] Last Admin: 11/06/16 09:47 Dose: 1 applic Potassium Chloride (K-Dur 20) 20 meq PO BID [facility] Last Admin: 11/06/16 09:31 Dose: 20 meq Prednisone () 10 mg PO DAILY [facility] Last Admin: 11/06/16 09:31 Dose: 10 mg Propranolol HCl (Inderal La) 60 mg PO AC-LUNCH [facility] Last Admin: 11/06/16 12:20 Dose: 60 mg Sodium Chloride (Saline Flush) 10 ml IV BID [facility] Last Admin: 11/06/16 09:31 Dose: 10 ml Tacrolimus (Prograf) 1 mg PO DAILY [facility] Last Admin: 11/06/16 09:27 Dose: 1 mg Tamsulosin HCl (Flomax) 0.4 mg PO BID [facility] Last Admin: 11/06/16 09:31 Dose: 0.4 mg Tramadol HCl (Ultram) 50 mg PO BID PRN PRN Reason: Pain Last Admin: 11/05/16 16:57 Dose: 50 mg Vancomycin HCl (Vancomycin Oral Solution) 250 mg PO Q6HR [facility] Last Admin: 11/06/16 12:23 Dose: 250 mg Home Medications Medication Instructions Recorded Confirmed Type Ergocalciferol [Vitamin D2 50,000 units PO DEAL 01/16/14 10/26/16 History (DRISDOL)] Leflunomide [Arava] 20 mg PO AC-LUNCH 01/16/14 10/26/16 History Ranitidine HCl [Zantac] 150 mg PO BID 01/16/14 10/26/16 History Sod Phos Di, [place]/K Phos [place] 250 mg PO BID 01/16/14 10/26/16 History [Phospha 250 Neutral Tablet] Tamsulosin HCl [Flomax] 0.4 mg PO BID 01/16/14 10/26/16 History Propranolol LA [Inderal LA] 60 mg PO AC-LUNCH 12/17/14 10/26/16 History Calcium Carbonate [Calcium] 600 mg PO DAILY 03/25/16 10/26/16 History predniSONE 10 mg PO DAILY 03/25/16 10/26/16 History Atorvastatin [Lipitor] 40 mg PO HS 04/18/16 10/26/16 History [place]-3 Fatty Acids/Fish Oil [Fish 1 cap PO DAILY 04/18/16 10/26/16 History Oil 1,000 mg Softgel] Tacrolimus [Prograf] 1 mg PO TID 08/19/16 10/26/16 History Gabapentin [Neurontin] 600 mg PO BID@1600,2200 09/04/16 10/26/16 History Allopurinol [Zyloprim] 100 mg PO BID 10/26/16 10/26/16 History Bumetanide 2 mg PO TID 10/26/16 10/26/16 History Enalapril [Vasotec] 20 mg PO DAILY 10/26/16 10/26/16 History Ferrous Sulfate [Feosol] 325 mg PO DAILY 10/26/16 10/26/16 History L.acidoph,Paracasei, B.lactis 1 cap PO DAILY 10/26/16 10/26/16 History [Probiotic] Metolazone [Zaroxolyn] 5 mg PO BID 10/26/16 10/26/16 History Multivitamins, Thera [Multivitamin 1 tab PO DAILY 10/26/16 10/26/16 History (formulary)] traMADol HCL [Ultram] 50 mg PO BID PRN 10/26/16 10/26/16 History Nystatin 100,000Unit/gm Cream 100,000 units TOPICAL BID 11/01/16 11/01/16 History [Mycostatin Cream] Allergies Allergy/AdvReac Type Severity Reaction Status Date / Time sumatriptan [From Imitrex] Allergy Swelling Verified 10/26/16 15:04 sumatriptan succinate Allergy Swelling Verified 10/26/16 15:04 [From Imitrex] cephalexin [From Keflex] AdvReac Diarrhea Verified 10/26/16 15:04 Physical Exam Vitals: Vital Signs Temp Pulse Resp BP BP Pulse Ox 11/06/16 15:49 16 11/06/16 15:48 99 F 75 16 125/69 95 11/06/16 11:57 97.2 F L 73 18 141/80 93 L 11/06/16 09:23 97.4 F L 66 16 143/71 93 L 11/06/16 07:00 94 L 11/06/16 03:53 97.0 F L 66 14 145/82 94 L 11/06/16 00:00 96.9 F L 79 16 118/74 96 11/05/16 20:00 93 16 112/72 95 Intake and Output 11/06/16 11/06/16 11/06/16 06:59 14:59 22:59 Intake Total 80 Output Total 850 Balance -850 80 Intake: IV 80 0.9 80 Output: Urine 850 Other: Voiding Method Indwelling Catheter Indwelling Catheter Indwelling Catheter Weight 106 kg Pleasant 76-year-old gentleman who is comfortable at this time HEENT: Anicteric conjunctiva are pink and moist nasal mucosa grossly intact without significant lesions, there is no thrush. Neck: The neck is supple without significant lymphadenopathy or thyromegaly. Lungs: Good bilateral air entry without wheezing. Few basilar crackles There is no significant bronchial sounds. There is no egophony or dullness. Heart: Regular rate and rhythm with an audible S1-S2, no S3 or S4 There is no significant murmur click or rub, PMI was nondisplaced. Abdomen: Obese, Positive bowel sounds soft and nontender without palpable masses or organomegaly. There was no guarding or rebound. Extremities: Significant deformity to the upper extremities is noted. Fortunately there is not much tenderness to range of motion. Not a lot of active synovitis. The lower extremities have evidence of chronic edema. No active open ulcerations are seen. There are a few healing abrasions. There is very dry skin on the toes but no scott open ulcerations or dermatophytosis. Neuro: Awake alert oriented to person and place. Patient is not is good historian as I recall from the last visit. He is able to move upper and lower extremity is on command. Results CBC & Chem 7: 11/05/16 05:22 11/06/16 05:33 Labs: Abnormal Lab Results - Last 24 Hours (Table) 11/06/16 Range/Units 05:33 Carbon Dioxide 33 H (22-30) mmol/L BUN 118 H* (9-20) mg/dL Creatinine 2.75 H (0.66-1.25) mg/dL Glucose 102 H (74-99) mg/dL Calcium 8.2 L (8.4-10.2) mg/dL Laboratory Results WBC 7.8 k/uL (3.8-10.6) 11/05/16 05:22 RBC 2.60 m/uL (4.30-5.90) L 11/05/16 05:22 Hgb 8.1 gm/dL (13.0-17.5) L 11/05/16 05:22 Hct 25.1 % (39.0-53.0) L 11/05/16 05:22 MCV 96.8 fL (80.0-100.0) 11/05/16 05:22 MCH 31.3 pg (25.0-35.0) 11/05/16 05:22 MCHC 32.3 g/dL (31.0-37.0) 11/05/16 05:22 RDW 16.5 % (11.5-15.5) H 11/05/16 05:22 Plt Count 219 k/uL (150-450) 11/05/16 05:22 Neutrophils % 81 % 11/05/16 05:22 Lymphocytes % 9 % 11/05/16 05:22 Monocytes % 5 % 11/05/16 05:22 Eosinophils % 3 % 11/05/16 05:22 Basophils % 0 % 11/05/16 05:22 Neutrophils # 6.3 k/uL (1.3-7.7) 11/05/16 05:22 Lymphocytes # 0.7 k/uL (1.0-4.8) L 11/05/16 05:22 Monocytes # 0.4 k/uL (0-1.0) 11/05/16 05:22 Eosinophils # 0.2 k/uL (0-0.7) 11/05/16 05:22 Basophils # 0.0 k/uL (0-0.2) 11/05/16 05:22 Hypochromasia Slight 11/05/16 05:22 Anisocytosis Slight 11/05/16 05:22 Macrocytosis Slight 11/05/16 05:22 PT 10.3 sec (9.0-12.0) 10/26/16 14:50 INR 1.0 (<1.1) 10/26/16 14:50 APTT 23.6 sec (22.0-30.0) 10/26/16 14:50 Sodium 143 mmol/L (137-145) 11/06/16 05:33 Potassium 3.7 mmol/L (3.5-5.1) 11/06/16 05:33 Chloride 102 mmol/L (98-107) 11/06/16 05:33 Carbon Dioxide 33 mmol/L (22-30) H 11/06/16 05:33 Anion Gap 8 mmol/L 11/06/16 05:33 BUN 118 mg/dL (9-20) H* 11/06/16 05:33 Creatinine 2.75 mg/dL (0.66-1.25) H 11/06/16 05:33 Est GFR (MDRD) Af Amer 27 (>60 ml/min/1.73 sqM) 11/06/16 05:33 Est GFR (MDRD) Non-Af 23 (>60 ml/min/1.73 sqM) 11/06/16 05:33 Glucose 102 mg/dL (74-99) H 11/06/16 05:33 POC Glucose (mg/dL) 156 mg/dL (75-99) H 10/28/16 11:47 POC Glu Mail Reader Linda Doss 10/28/16 11:47 Calcium 8.2 mg/dL (8.4-10.2) L 11/06/16 05:33 Magnesium 1.8 mg/dL (1.6-2.3) 11/05/16 05:22 Iron 44 ug/dL (49-181) L 10/27/16 02:43 TIBC 202 ug/dL (261-462) L 10/27/16 02:43 % Saturation 21.8 % (20-50) 10/27/16 02:43 Ferritin 1380 ng/mL (18-464) H 10/27/16 02:43 Total Bilirubin 0.6 mg/dL (0.2-1.3) 10/26/16 14:50 AST 26 U/L (17-59) 10/26/16 14:50 ALT 25 U/L (21-72) 10/26/16 14:50 Alkaline Phosphatase 121 U/L (38-126) 10/26/16 14:50 Total Creatine Kinase 66 U/L (55-170) 10/26/16 14:50 CK-MB (CK-2) 2.2 ng/mL (0.0-2.4) 10/26/16 14:50 CK-MB (CK-2) Rel Index 3.3 10/26/16 14:50 Troponin I 0.068 ng/mL (0.000-0.034) H* 10/27/16 02:43 NT-Pro-B Natriuret Pep 61664 pg/mL 10/26/16 14:50 Total Protein 5.1 g/dL (6.3-8.2) L 10/26/16 14:50 Albumin 2.3 g/dL (3.5-5.0) L 10/26/16 14:50 Vitamin B12 688 pg/mL 10/30/16 05:54 Stool Occult Blood Negative (Negative) 10/26/16 14:50 Random Vancomycin 14.6 ug/mL 10/29/16 06:03 C. difficile (EIA) Intrp Positive (Negative) A 10/28/16 10:45 Blood Type O Positive 10/26/16 14:50 Blood Type Recheck No 10/26/16 14:50 Antibody Screen NEGATIVE 10/26/16 14:50 Crossmatch See Detail 10/26/16 14:50 Spec Expiration Date 10/29/2016234910/26/16 14:50 Assessment and Plan (1) C. difficile diarrhea Narrative/Plan: 76-year-old male has a history of psoriatic arthritis has had several bouts of Clostridium difficile colitis since earlier this year. He does appear this could be his fourth episode. He is being treated currently with vancomycin therapy and apparently not having great improvement. 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 We'll continue with probiotic therapy. Yogurt as he tolerates. We'll add Saccharomyces also with this time. Monitor his stool output. Continue to moisturize his skin. As noted Prograf was held due to his current infection. Nephrology is following his renal failure closely. Status: Acute (2) Congestive heart failure Status: Acute (3) Anemia Status: Acute (4) Renal failure (ARF), acute on chronic Status: Acute
[2016-11-06] MEDS: ATORVASTATIN 40 MG TAB PO SCH (21:31)
[2016-11-06] MEDS: FIDAXOMICIN 200 MG TABLET PO SCH (21:32)
--- NOTE | 2016-11-06 22:55 | P.PN ---
Subjective Mr. 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 Bradford's office. Patient's hemoglobin was 7 and patient's hemoglobin level improved and has been stable with 1 unit of PRBC, otherwise, patient does have generalized swelling/anasarca and was treated with Lasix drip initially. Currently, diuretics have been changed to Bumex as well as metolazone. Nephrology and Cardiology is following this patient. Patient is significantly improved with IV diuresis. Currently, breathing is much improved now. Denied any complaints of chest pain or short of breath. No nausea, vomiting, abdominal pain. Otherwise, renal function showed increased creatinine to 2.5 today. The diuretics have been changed to p.o. today. Otherwise, patient is generally complaining of chest pain, short of breath, no acute overnight issues. No nausea, vomiting, abdominal pain. Patient is also being treated for recurrent C. diff infection with vancomycin p.o. Objective - Vital Signs Vital signs: Vital Signs Temp 97.7 F 11/05/16 08:00 Pulse 78 11/05/16 15:53 Resp 18 11/05/16 15:53 BP 111/59 11/05/16 15:52 Pulse Ox 92 L 11/05/16 15:52 Intake & Output 11/05/16 11/05/16 11/06/16 06:59 18:59 06:59 Output Total 901 3 Balance -901 -3 Weight 105.5 kg 105.5 kg Output: Urine 900 Stool 1 3 Other: Voiding Method Indwelling Catheter Indwelling Catheter # Voids 0 - Exam HEENT: Atraumatic, normocephalic. Neck is supple with no JVD. CVS EXAM: S1 and S2 heard., no gallop, no rub. LUNGS: Bilateral air entry is present. No wheezing, no crackles, nonlabored breathing. Decreased BS at the lower lung stratton. ABDOMEN: Soft, nontender. Bowel sounds are present. RELOCATION COMMISSIONER: Awake, alert x3. No focal deficits. EXTREMITIES: Patient does have 2+ edema. Pulses palpable bilaterally. PSYCHIATRY: Cooperative. - Labs CBC & Chem 7: 11/05/16 05:22 11/06/16 05:33 Labs: Abnormal Lab Results - Last 24 Hours (Table) 11/05/16 11/05/16 Range/Units 05:22 05:22 RBC 2.60 L (4.30-5.90) m/uL Hgb 8.1 L (13.0-17.5) gm/dL Hct 25.1 L (39.0-53.0) % RDW 16.5 H (11.5-15.5) % Lymphocytes # 0.7 L (1.0-4.8) k/uL Carbon Dioxide 34 H (22-30) mmol/L BUN 120 H* (9-20) mg/dL Creatinine 2.84 H (0.66-1.25) mg/dL Glucose 106 H (74-99) mg/dL Calcium 8.3 L (8.4-10.2) mg/dL Assessment and Plan Plan: 1. Acute on chronic Diastolic congestive heart failure exacerbation and function. 2. Generalized swelling/anasarca like due to congestive heart failure exacerbation as well as nephrotic syndrome. 3. Symptomatic anemia - could be due to CKD - requiring blood transfusion- S/p 1 unit PRBC, hemoglobin is 8.3 now. 4. Recurrent Clostridium difficile infection, currently on p.o. vancomycin. Patient was seen by Dr. Jay previously. No diarrhea currently. 5. Acute on chronic kidney disease secondary to acute tubular necrosis along with pneumonia and possible cardiorenal syndrome. 6. 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 Diallo and also at [facility]. 7. Hypertension. 8. Chronic persistent atrial fibrillation, currently on anticoagulant with Eliquis. 9. Hyperlipidemia. 10. Elevated troponin level secondary to acute kidney injury and demand mismatch , unlikely ACS. 11. Borderline diabetes mellitus. 12. History of cerebrovascular accident, no residual weakness. 13. Morbid obesity. DISCUSSION AND PLAN: Patient will be continued on Bumex as well as metolazone. Will follow with renal function. Continue to monitor H&H, increase ambulation and PT, OT. Continue with the vancomycin p.o. for C.diff. C/w Eliquis for anti coagulation. Will replace magnesium and follow up and further recommendations based on clinical course.
--- NOTE | 2016-11-06 22:59 | P.PN ---
Subjective Mr. 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 Bradford's office. Patient's hemoglobin was 7 and patient's hemoglobin level improved and has been stable with 1 unit of PRBC, otherwise, patient does have generalized swelling/anasarca and was treated with Lasix drip initially. Currently, diuretics have been changed to Bumex as well as metolazone. Nephrology and Cardiology is following this patient. Patient is significantly improved with IV diuresis. Currently, breathing is much improved now. Denied any complaints of chest pain or short of breath. No nausea, vomiting, abdominal pain. Otherwise, renal function showed increased creatinine to 2.75 today. The diuretics have been changed to p.o. Otherwise, patient is generally complaining of chest pain, short of breath, no acute overnight issues. No nausea, vomiting, abdominal pain. Patient is also being treated for recurrent C. diff infection with vancomycin p.o but still has diarrhea. So ID has been consulted today. Objective - Vital Signs Vital signs: Vital Signs Temp 97.2 F L 11/06/16 11:57 Pulse 73 11/06/16 11:57 Resp 18 11/06/16 11:57 BP 141/80 11/06/16 11:57 Pulse Ox 93 L 11/06/16 11:57 Intake & Output 11/05/16 11/06/16 11/06/16 18:59 06:59 18:59 Intake Total 80 Output Total 3 851 Balance -3 -851 80 Weight 105.5 kg 106 kg Intake: IV 80 0.9 80 Output: Urine 850 Stool 3 1 Other: Voiding Method Indwelling Catheter Indwelling Catheter Indwelling Catheter # Voids 0 - Exam HEENT: Atraumatic, normocephalic. Neck is supple with no JVD. CVS EXAM: S1 and S2 heard., no gallop, no rub. LUNGS: Bilateral air entry is present. No wheezing, no crackles, nonlabored breathing. Decreased BS at the lower lung stratton. ABDOMEN: Soft, nontender. Bowel sounds are present. SPRING LAYER: Awake, alert x3. No focal deficits. EXTREMITIES: Patient does have 2+ edema. Pulses palpable bilaterally. PSYCHIATRY: Cooperative. - Labs CBC & Chem 7: 11/05/16 05:22 11/06/16 05:33 Labs: Abnormal Lab Results - Last 24 Hours (Table) 11/06/16 Range/Units 05:33 Carbon Dioxide 33 H (22-30) mmol/L BUN 118 H* (9-20) mg/dL Creatinine 2.75 H (0.66-1.25) mg/dL Glucose 102 H (74-99) mg/dL Calcium 8.2 L (8.4-10.2) mg/dL Assessment and Plan Plan: 1. Acute on chronic Diastolic congestive heart failure exacerbation and function. 2. Generalized swelling/anasarca like due to congestive heart failure exacerbation as well as nephrotic syndrome. 3. Symptomatic anemia - could be due to CKD - requiring blood transfusion- S/p 1 unit PRBC, hemoglobin is 8.3 now. 4. Recurrent Clostridium difficile infection, p.o. vancomycin has been changed to Dificid and he is also started on probiotics. 5. Acute on chronic kidney disease secondary to acute tubular necrosis along with pneumonia and possible cardiorenal syndrome. 6. 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 Diallo and also at [facility]. 7. Hypertension. 8. Chronic persistent atrial fibrillation, currently on anticoagulant with Eliquis. 9. Hyperlipidemia. 10. Elevated troponin level secondary to acute kidney injury and demand mismatch , unlikely ACS. 11. Borderline diabetes mellitus. 12. History of cerebrovascular accident, no residual weakness. 13. Morbid obesity. DISCUSSION AND PLAN: Patient will be continued on Bumex as well as metolazone. Will follow with renal function. Continue to monitor H&H, increase ambulation and PT, OT. C/w Eliquis for anti coagulation. Will replace magnesium and follow up and further recommendations based on clinical course.
[2016-11-07 06:05] LABS: Anisocytosis Slight; Basophils % (A) 0 %; CH 30.3; CHCM 31.2; Eosinophils # (A) 0.2 k/uL (0-0.7); Eosinophils % (A) 3 %; HDW 2.43; Hypochromasia Slight; Luc # (Auto) 0.21; Luc % (Auto) 3; Lymphocytes # (A) 0.6 k/uL (1.0-4.8); Lymphocytes % (A) 8 %; MCH 31.3 pg (25.0-35.0); MCHC 32.1 g/dL (31.0-37.0); MCV 97.6 fL (80.0-100.0); Macrocytosis Slight; Mean Platelet Volume 7.4; Monocytes # (A) 0.4 k/uL (0-1.0); Monocytes % (A) 5 %; Neutrophils # (A) 6.2 k/uL (1.3-7.7); Neutrophils % (A) 81 %; RBC 2.57 m/uL (4.30-5.90); RDW 16.1 % (11.5-15.5); WBC 7.7 k/uL (3.8-10.6); WBC (Perox) 8.25
[2016-11-07 06:18] LABS: Calcium 8.3 mg/dL (8.4-10.2); Potassium 3.9 mmol/L (3.5-5.1)
--- NOTE | 2016-11-07 08:13 | P.PN ---
Subjective Patient is seen for follow-up for acute kidney injury on top of chronic kidney disease. Patient was admitted to the hospital with severe volume overload significant edema and the his stool for occult blood was positive as outpatient. Hemoglobin was at 7 g/dL when he was initially admitted. Patient has been maintained on IV Bumex his. His volume status has improved. He was also noted to be positive for C. diff toxin. Patient has had 3 previous episodes of C. diff colitis and he has been treated with oral vancomycin. He was maintained on probiotics as outpatient and his stools had improved to normal consistency prior to this admission. This morning patient denies any chest pains or shortness of breath his appetite is fair. He has been sitting out of bed. Bowel movements are loose but not very watery. During his previous admission we had held the Prograf secondary to severe bout of C. diff colitis I will decrease his Prograf this admission as well. Of note, stool was negative for occult blood on this admission. This morning patient is sitting up in bed he is comfortable he is eating. Patient's is present at bedside. Patient was evaluated by ID and has been started on Dificid.. Patient has not yet had a bowel movement today. I decreased the lisinopril yesterday as well as the Bumex. The Prograf was also decreased in view of recurrent C. diff colitis. Objective - Vital Signs Vital signs: Vital Signs Temp 97.1 F L 11/07/16 04:00 Pulse 79 11/07/16 04:00 Resp 20 11/07/16 04:00 BP 146/87 11/07/16 04:00 Pulse Ox 95 11/07/16 04:00 Intake & Output 11/06/16 11/07/16 11/07/16 18:59 06:59 18:59 Intake Total 540 120 Output Total 1100 701 Balance -560 -581 Weight 105.5 kg Intake: IV 240 0.9 240 Oral 300 120 Output: Urine 1100 700 Stool 1 Other: Voiding Method Indwelling Catheter Indwelling Catheter # Voids 0 - Exam On examination blood pressure 146/87 heart rate 79/m. Patient is afebrile Examination of the heart S1 and S2 Examination lungs bilateral breath sounds are heard Abdomen is soft obese nontender Exertion lower extremity shows chronic skin changes edema 1+ bilaterally. ACCOUNT RESOLUTION SPECIALIST exam is grossly intact. Patient is moving all 4 extremities. Deformity are noted in bilateral hands from his arthropathy - Labs CBC & Chem 7: 11/07/16 05:31 11/07/16 05:31 Labs: Abnormal Lab Results - Last 24 Hours (Table) 11/07/16 11/07/16 Range/Units 05:31 05:31 RBC 2.57 L (4.30-5.90) m/uL Hgb 8.0 L (13.0-17.5) gm/dL Hct 25.0 L (39.0-53.0) % RDW 16.1 H (11.5-15.5) % Lymphocytes # 0.6 L (1.0-4.8) k/uL Carbon Dioxide 33 H (22-30) mmol/L BUN 121 H* (9-20) mg/dL Creatinine 2.80 H (0.66-1.25) mg/dL Calcium 8.3 L (8.4-10.2) mg/dL Assessment and Plan Plan: Assessment 1. Acute kidney injury secondary to ATN, diuresis. Serum creatinine is at. 2.8 mg/dL today. Bumex is at 2 mg IV every 12 hours. Patient is also on the lisinopril which I will decrease since his blood pressure has not been significantly high. Decreased the Bumex to 1 mg IV every 12 hours yesterday. 2. Chronic kidney disease secondary to biopsy-proven FSGS maintained on Prograf. I decreased the Prograf further in view of the recurrent C. diff colitis. Continue with the RICK inhibitor's but decrease dose to half the amount. Continue with the prednisone. 3. Recurrent C. diff colitis currently maintained on oral vancomycin and will proceed with infectious disease consult. Decrease Prograf. 4. Anemia, multifactorial with previous stool positive for culture blood but this time his stool is negative for occult blood. Patient is maintained on aranesp I will check iron studies if not done. Transfuse 1 unit packed RBCs if hemoglobin drops below 8. 5. 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 6. volume overload currently improved significantly. Plan Continue with current dose of Prograf. Decrease Bumex further. Continue with the lower dose of lisinopril and repeat labs in a.m. Will DC the Maldonado catheter and the check a post void bladder bladder scan to rule out urine retention. Transfuse packed RBCs when hemoglobin drops below 8, most likely tomorrow.
[2016-11-07] MEDS: FIDAXOMICIN 200 MG TABLET PO SCH ×2 (09:15→21:13)
[2016-11-07] MEDS: POTASSIUM CHLORIDE ER 20 MEQ TAB.ER PO SCH ×2 (09:16→21:14)
[2016-11-07] MEDS: hydrALAZINE HCL 25 MG TAB PO SCH ×2 (09:16→21:13)
[2016-11-07] MEDS: LISINOPRIL 10 MG TAB PO SCH (09:16)
[2016-11-07] MEDS: FERROUS SULFATE 325 MG TAB PO SCH (09:16)
[2016-11-07] MEDS: ALLOPURINOL 100 MG TAB PO SCH ×2 (09:16→21:13)
[2016-11-07] MEDS: TAMSULOSIN 0.4 MG CAP.ER.24H PO SCH ×2 (09:16→21:22)
[2016-11-07] MEDS: FAMOTIDINE 20 MG TAB PO SCH (09:17)
[2016-11-07] MEDS: APIXABAN 2.5 MG TABLET PO SCH ×2 (09:17→21:13)
[2016-11-07] MEDS: CALCIUM CARBONATE 500 MG CHEWABLE PO SCH (09:17)
[2016-11-07] MEDS: LACTOBACILLUS ACIDOPH & BULGAR 1 EACH PACKET PO SCH (09:17)
[2016-11-07] MEDS: DOCUSATE 100 MG CAP PO SCH ×2 (09:17→21:13)
[2016-11-07] MEDS: ERGOCALCIFEROL 50,000 UNIT CAP PO SCH (09:18)
[2016-11-07] MEDS: METOLAZONE 5 MG TAB PO SCH ×2 (09:21→21:14)
[2016-11-07] MEDS: NYSTATIN 100,000UNIT/GM CREAM 30 GM TUBE TOPICAL SCH (09:21)
[2016-11-07] MEDS: ISOSORBIDE MONONITRATE ER 30 MG TAB.ER.24H PO SCH (09:21)
[2016-11-07] MEDS: TACROLIMUS 1 MG CAP PO SCH (09:21)
[2016-11-07] MEDS: predniSONE 10 MG TAB PO SCH (09:22)
[2016-11-07] MEDS: BUMETANIDE 0.25 MG/ML 10 ML VIAL IV SCH (09:26)
[2016-11-07] MEDS: LEFLUNOMIDE 20 MG TAB PO SCH (12:38)
[2016-11-07] MEDS: PROPRANOLOL LA 60 MG CAP.SA.24H PO SCH (12:38)
[2016-11-07] MEDS: GABAPENTIN 300 MG CAP PO SCH ×2 (15:33→21:22)
[2016-11-07] MEDS: ATORVASTATIN 40 MG TAB PO SCH (21:13)
--- NOTE | 2016-11-07 21:37 | P.PN ---
Subjective Mr. 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 Bradford's office. Patient's hemoglobin was 7 and patient's hemoglobin level improved and has been stable with 1 unit of PRBC, otherwise, patient does have generalized swelling/anasarca and was treated with Lasix drip initially. Currently, diuretics have been changed to Bumex as well as metolazone. Nephrology and Cardiology are following this patient. Patient is significantly improved with IV diuresis. Currently, breathing is much improved now. Denied any complaints of chest pain or short of breath. No nausea, vomiting, abdominal pain. Otherwise, renal function showed increased creatinine to 2.80 today. The diuretics have been changed to p.o. Otherwise, patient is generally complaining of chest pain, short of breath, no acute overnight issues. No nausea, vomiting, abdominal pain. Patient is also being treated for recurrent C. diff infection his vancomycin p.o has be changed to DIFICID yesterday. He still had 2-3 watery bowel movements since yesterday. Objective - Vital Signs Vital signs: Vital Signs Temp 97.0 F L 11/07/16 12:00 Pulse 83 11/07/16 12:00 Resp 16 11/07/16 12:00 BP 141/73 11/07/16 12:00 Pulse Ox 92 L 11/07/16 12:00 Intake & Output 11/06/16 11/07/16 11/07/16 18:59 06:59 18:59 Intake Total 540 120 Output Total 1100 701 500 Balance -560 -581 -500 Weight 105.5 kg Intake: IV 240 0.9 240 Oral 300 120 Output: Urine 1100 700 500 Uretheral (Maldonado) 500 Stool 1 Other: Voiding Method Indwelling Catheter Indwelling Catheter Indwelling Catheter # Voids 0 # Bowel Movements 1 - Exam HEENT: Atraumatic, normocephalic. Neck is supple with no JVD. CVS EXAM: S1 and S2 heard., no gallop, no rub. LUNGS: Bilateral air entry is present. No wheezing, no crackles, nonlabored breathing. Decreased BS at the lower lung stratton. ABDOMEN: Soft, nontender. Bowel sounds are present. WRAPPER STITCHER: Awake, alert x3. No focal deficits. EXTREMITIES: Patient does have 2+ edema. Pulses palpable bilaterally. PSYCHIATRY: Cooperative. - Labs CBC & Chem 7: 11/07/16 05:31 11/07/16 05:31 Labs: Abnormal Lab Results - Last 24 Hours (Table) 11/07/16 11/07/16 Range/Units 05:31 05:31 RBC 2.57 L (4.30-5.90) m/uL Hgb 8.0 L (13.0-17.5) gm/dL Hct 25.0 L (39.0-53.0) % RDW 16.1 H (11.5-15.5) % Lymphocytes # 0.6 L (1.0-4.8) k/uL Carbon Dioxide 33 H (22-30) mmol/L BUN 121 H* (9-20) mg/dL Creatinine 2.80 H (0.66-1.25) mg/dL Calcium 8.3 L (8.4-10.2) mg/dL Assessment and Plan Plan: 1. Acute on chronic Diastolic congestive heart failure exacerbation and function. 2. Generalized swelling/anasarca like due to congestive heart failure exacerbation as well as nephrotic syndrome. 3. Symptomatic anemia - could be due to CKD - requiring blood transfusion- S/p 1 unit PRBC, hemoglobin is 8.3 now. 4. Recurrent Clostridium difficile infection, p.o. vancomycin has been changed to Dificid and he is also started on probiotics. 5. Acute on chronic kidney disease secondary to acute tubular necrosis along with pneumonia and possible cardiorenal syndrome. 6. 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 Diallo and also at [facility]. 7. Hypertension. 8. Chronic persistent atrial fibrillation, currently on anticoagulant with Eliquis. 9. Hyperlipidemia. 10. Elevated troponin level secondary to acute kidney injury and demand mismatch , unlikely ACS. 11. Borderline diabetes mellitus. 12. History of cerebrovascular accident, no residual weakness. 13. Morbid obesity. DISCUSSION AND PLAN: Patient will be continued on Bumex as well as metolazone. Will follow with renal function. Continue to monitor H&H, increase ambulation and PT, OT. C/w Eliquis for anti coagulation. Will replace magnesium and follow up and further recommendations based on clinical course.
[2016-11-08] MEDS: NYSTATIN 100,000UNIT/GM CREAM 30 GM TUBE TOPICAL SCH ×3 (06:05→22:07)
[2016-11-08 06:37] LABS: Anisocytosis Slight; Basophils % (A) 0 %; CH 30.8; CHCM 31.3; Eosinophils # (A) 0.3 k/uL (0-0.7); Eosinophils % (A) 3 %; HCT 27.1 % (39.0-53.0); HDW 2.39; HGB 8.7 gm/dL (13.0-17.5); Luc # (Auto) 0.14; Luc % (Auto) 2; Lymphocytes # (A) 0.7 k/uL (1.0-4.8); Lymphocytes % (A) 8 %; MCH 31.7 pg (25.0-35.0); MCV 98.8 fL (80.0-100.0); Macrocytosis Slight; Mean Platelet Volume 7.6; Monocytes # (A) 0.4 k/uL (0-1.0); Monocytes % (A) 5 %; Neutrophils # (A) 7.1 k/uL (1.3-7.7); Neutrophils % (A) 83 %; RBC 2.74 m/uL (4.30-5.90); RDW 16.5 % (11.5-15.5); WBC 8.6 k/uL (3.8-10.6); WBC (Perox) 8.64
[2016-11-08 06:55] LABS: Calcium 8.2 mg/dL (8.4-10.2); Potassium 4.1 mmol/L (3.5-5.1)
--- NOTE | 2016-11-08 08:33 | P.PN ---
Subjective Patient is seen in follow-up for acute kidney injury on chronic kidney disease. 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 His creatinine peaked at 2.8 on October 29 and is 2.66 today. He was maintained on Lasix drip for several days and is now on IV Bumex. He was also anemic on admission and received a blood transfusion. Hemoglobin stable. Edema is improving. No vomiting. Noted to be C. diff positive. Oral intake is fair. Does have loose bowel movements but much improved. Denies chest pain. Vital signs are stable. General: The patient appeared well nourished and normally developed. HEENT: Head exam is unremarkable. Neck is without jugular venous distension. LUNGS: Scattered rhonchi at bases. Breath sounds decreased. HEART: Rate and Rhythm are regular. First and second heart sounds normal. No murmurs, rubs or gallops. ABDOMEN: Abdominal exam reveals normal bowel sounds. Non-tender and non- distended. No evidence of peritonitis. EXTREMITITES: 1+ edema. Objective - Vital Signs Vital signs: Vital Signs Temp 98.4 F 11/08/16 04:00 Pulse 80 11/08/16 04:00 Resp 17 11/08/16 04:00 BP 130/74 11/08/16 04:00 Pulse Ox 95 11/08/16 04:00 Intake & Output 11/07/16 11/08/16 11/08/16 18:59 06:59 18:59 Intake Total 240 0 Output Total 1100 800 Balance -860 -800 0 Weight 104.2 kg Intake: Oral 240 0 Output: Urine 1100 800 Uretheral (Maldonado) 500 Other: Voiding Method Urinal Urinal # Bowel Movements 1 1 - Labs CBC & Chem 7: 11/08/16 05:26 11/08/16 05:26 Labs: Abnormal Lab Results - Last 24 Hours (Table) 11/08/16 11/08/16 Range/Units 05:26 05:26 RBC 2.74 L (4.30-5.90) m/uL Hgb 8.7 L (13.0-17.5) gm/dL Hct 27.1 L (39.0-53.0) % RDW 16.5 H (11.5-15.5) % Lymphocytes # 0.7 L (1.0-4.8) k/uL BUN 125 H* (9-20) mg/dL Creatinine 2.66 H (0.66-1.25) mg/dL Calcium 8.2 L (8.4-10.2) mg/dL Assessment and Plan Plan: Assessment: #1. Nonoliguric acute kidney injury secondary to ATN secondary to acute anemia as well as cardiorenal syndrome. Creatinine down to 2.66 today. #2. 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 #3. Diastolic CHF. #4. Volume overload. Improving. #5. Acute anemia status post blood transfusion. Hemoglobin stable. Iron replete. #6. C. diff colitis on oral vancomycin. #7. Hypokalemia secondary to diuresis. Improved. Plan: Continue IV Bumex 1 mg daily. Maintain metolazone 5 mg twice daily. Low-salt and 1.5 L fluid restriction. Maintain ensure with meals. Maintain Prograf and prednisone - dose of Prograf decreased until C. diff resolves. Strict I's and O's and daily weights. Maintain Aranesp. Repeat electrolytes in the morning.
[2016-11-08] MEDS: hydrALAZINE HCL 25 MG TAB PO SCH ×2 (09:16→21:58)
[2016-11-08] MEDS: ISOSORBIDE MONONITRATE ER 30 MG TAB.ER.24H PO SCH (09:16)
[2016-11-08] MEDS: ALLOPURINOL 100 MG TAB PO SCH ×2 (09:16→21:57)
[2016-11-08] MEDS: METOLAZONE 5 MG TAB PO SCH ×2 (09:16→21:58)
[2016-11-08] MEDS: BUMETANIDE 0.25 MG/ML 10 ML VIAL IV SCH (09:16)
[2016-11-08] MEDS: FAMOTIDINE 20 MG TAB PO SCH (09:17)
[2016-11-08] MEDS: TAMSULOSIN 0.4 MG CAP.ER.24H PO SCH ×2 (09:17→22:03)
[2016-11-08] MEDS: LACTOBACILLUS ACIDOPH & BULGAR 1 EACH PACKET PO SCH (09:17)
[2016-11-08] MEDS: APIXABAN 2.5 MG TABLET PO SCH ×2 (09:17→21:57)
[2016-11-08] MEDS: CALCIUM CARBONATE 500 MG CHEWABLE PO SCH (09:17)
[2016-11-08] MEDS: FERROUS SULFATE 325 MG TAB PO SCH (09:17)
[2016-11-08] MEDS: TACROLIMUS 1 MG CAP PO SCH (09:17)
[2016-11-08] MEDS: predniSONE 10 MG TAB PO SCH (09:17)
[2016-11-08] MEDS: FIDAXOMICIN 200 MG TABLET PO SCH ×2 (09:17→21:59)
[2016-11-08] MEDS: POTASSIUM CHLORIDE ER 20 MEQ TAB.ER PO SCH ×2 (09:17→21:59)
[2016-11-08] MEDS: DOCUSATE 100 MG CAP PO SCH (09:19)
[2016-11-08] MEDS: NITROGLYCERIN OINT 1 INCH/GM PACKET TOPICAL SCH (09:39)
[2016-11-08 12:06] LABS: Glucose,Whole Blood 139 mg/dL (75-99)
[2016-11-08] MEDS: PROPRANOLOL LA 60 MG CAP.SA.24H PO SCH (12:24)
[2016-11-08] MEDS: LEFLUNOMIDE 20 MG TAB PO SCH (12:24)
[2016-11-08] MEDS: LISINOPRIL 10 MG TAB PO SCH (12:24)
[2016-11-08] MEDS: FUROSEMIDE 250 MG in SODIUM CHLORIDE 0.9% 225 ML IVP SCH ×4 (13:46→15:02)
[2016-11-08 17:10] LABS: Glucose,Whole Blood 246 mg/dL (75-99)
[2016-11-08] MEDS: GABAPENTIN 300 MG CAP PO SCH ×2 (17:11→22:03)
[2016-11-08 21:17] LABS: Glucose,Whole Blood 306 mg/dL (75-99)
--- NOTE | 2016-11-08 21:32 | P.PN ---
Subjective Principal diagnosis: weakness 6-year-old male with a history of psoriatic arthritis who is here significant difficulties with his skin and joints in the past. In April he had a significant cellulitis of his leg. He responded well to antibiotic therapy. However then developed diarrhea. Was on evidence of Clostridium difficile colitis. It appears since that time he's had several bouts of diarrhea that have been thought to be C. diff related. Review of the laboratory shows evidence of a C. diff positive of 10/28/2016. The patient receiving vancomycin therapy with ongoing diarrhea. Because of this the infectious diseases consultation was requested. Patient is quite a poor historian. Is able to relate a still having some diarrhea. He would like just to go home. He stated he is tired of being hospitalized and being sick. No fevers Objective - Vital Signs Vital signs: Vital Signs Temp 97.8 F 11/08/16 20:00 Pulse 85 11/08/16 20:00 Resp 18 11/08/16 20:00 BP 127/61 11/08/16 20:00 Pulse Ox 94 L 11/08/16 20:00 Intake & Output 11/08/16 11/08/16 11/09/16 06:59 18:59 06:59 Intake Total 0 Output Total 800 400 Balance -800 -400 Weight 104.2 kg Intake: Oral 0 Output: Urine 800 400 Other: Voiding Method Urinal Urinal # Voids 0 0 # Bowel Movements 1 - Exam Pleasant 76-year-old gentleman who is comfortable at this time HEENT: Anicteric conjunctiva are pink and moist nasal mucosa grossly intact without significant lesions, there is no thrush. Neck: The neck is supple without significant lymphadenopathy or thyromegaly. Lungs: Good bilateral air entry without wheezing. Few basilar crackles There is no significant bronchial sounds. There is no egophony or dullness. Heart: Regular rate and rhythm with an audible S1-S2, no S3 or S4 There is no significant murmur click or rub, PMI was nondisplaced. Abdomen: Obese, Positive bowel sounds soft and nontender without palpable masses or organomegaly. There was no guarding or rebound. Extremities: Significant deformity to the upper extremities is noted. Fortunately there is not much tenderness to range of motion. Not a lot of active synovitis. The lower extremities have evidence of chronic edema. No active open ulcerations are seen. There are a few healing abrasions. There is very dry skin on the toes but no scott open ulcerations or dermatophytosis. Neuro: Awake alert oriented to person and place. Patient is not is good historian as I recall from the last visit. He is able to move upper and lower extremity is on command. - Labs CBC & Chem 7: 11/08/16 05:26 11/08/16 05:26 Labs: Abnormal Lab Results - Last 24 Hours (Table) 11/08/16 11/08/16 11/08/16 Range/Units 05:26 05:26 12:04 RBC 2.74 L (4.30-5.90) m/uL Hgb 8.7 L (13.0-17.5) gm/dL Hct 27.1 L (39.0-53.0) % RDW 16.5 H (11.5-15.5) % Lymphocytes # 0.7 L (1.0-4.8) k/uL BUN 125 H* (9-20) mg/dL Creatinine 2.66 H (0.66-1.25) mg/dL POC Glucose (mg/dL) 139 H (75-99) mg/dL Calcium 8.2 L (8.4-10.2) mg/dL 11/08/16 11/08/16 Range/Units 17:00 21:14 RBC (4.30-5.90) m/uL Hgb (13.0-17.5) gm/dL Hct (39.0-53.0) % RDW (11.5-15.5) % Lymphocytes # (1.0-4.8) k/uL BUN (9-20) mg/dL Creatinine (0.66-1.25) mg/dL POC Glucose (mg/dL) 246 H 306 H (75-99) mg/dL Calcium (8.4-10.2) mg/dL Laboratory Results WBC 8.6 k/uL (3.8-10.6) 11/08/16 05:26 RBC 2.74 m/uL (4.30-5.90) L 11/08/16 05:26 Hgb 8.7 gm/dL (13.0-17.5) L 11/08/16 05:26 Hct 27.1 % (39.0-53.0) L 11/08/16 05:26 MCV 98.8 fL (80.0-100.0) 11/08/16 05:26 MCH 31.7 pg (25.0-35.0) 11/08/16 05:26 MCHC 32.0 g/dL (31.0-37.0) 11/08/16 05:26 RDW 16.5 % (11.5-15.5) H 11/08/16 05:26 Plt Count 236 k/uL (150-450) 11/08/16 05:26 Neutrophils % 83 % 11/08/16 05:26 Lymphocytes % 8 % 11/08/16 05:26 Monocytes % 5 % 11/08/16 05:26 Eosinophils % 3 % 11/08/16 05:26 Basophils % 0 % 11/08/16 05:26 Neutrophils # 7.1 k/uL (1.3-7.7) 11/08/16 05:26 Lymphocytes # 0.7 k/uL (1.0-4.8) L 11/08/16 05:26 Monocytes # 0.4 k/uL (0-1.0) 11/08/16 05:26 Eosinophils # 0.3 k/uL (0-0.7) 11/08/16 05:26 Basophils # 0.0 k/uL (0-0.2) 11/08/16 05:26 Hypochromasia Slight 11/07/16 05:31 Anisocytosis Slight 11/08/16 05:26 Macrocytosis Slight 11/08/16 05:26 PT 10.3 sec (9.0-12.0) 10/26/16 14:50 INR 1.0 (<1.1) 10/26/16 14:50 APTT 23.6 sec (22.0-30.0) 10/26/16 14:50 Sodium 145 mmol/L (137-145) 11/08/16 05:26 Potassium 4.1 mmol/L (3.5-5.1) 11/08/16 05:26 Chloride 105 mmol/L (98-107) 11/08/16 05:26 Carbon Dioxide 30 mmol/L (22-30) 11/08/16 05:26 Anion Gap 10 mmol/L 11/08/16 05:26 BUN 125 mg/dL (9-20) H* 11/08/16 05:26 Creatinine 2.66 mg/dL (0.66-1.25) H 11/08/16 05:26 Est GFR (MDRD) Af Amer 29 (>60 ml/min/1.73 sqM) 11/08/16 05:26 Est GFR (MDRD) Non-Af 24 (>60 ml/min/1.73 sqM) 11/08/16 05:26 Glucose 97 mg/dL (74-99) 11/08/16 05:26 POC Glucose (mg/dL) 306 mg/dL (75-99) H 11/08/16 21:14 POC Glu Artificial Fly Tier ID Alina Nesbitt 11/08/16 21:14 Calcium 8.2 mg/dL (8.4-10.2) L 11/08/16 05:26 Magnesium 2.0 mg/dL (1.6-2.3) 11/07/16 05:31 Iron 44 ug/dL (49-181) L 10/27/16 02:43 TIBC 202 ug/dL (261-462) L 10/27/16 02:43 % Saturation 21.8 % (20-50) 10/27/16 02:43 Ferritin 1380 ng/mL (18-464) H 10/27/16 02:43 Total Bilirubin 0.6 mg/dL (0.2-1.3) 10/26/16 14:50 AST 26 U/L (17-59) 10/26/16 14:50 ALT 25 U/L (21-72) 10/26/16 14:50 Alkaline Phosphatase 121 U/L (38-126) 10/26/16 14:50 Total Creatine Kinase 66 U/L (55-170) 10/26/16 14:50 CK-MB (CK-2) 2.2 ng/mL (0.0-2.4) 10/26/16 14:50 CK-MB (CK-2) Rel Index 3.3 10/26/16 14:50 Troponin I 0.068 ng/mL (0.000-0.034) H* 10/27/16 02:43 NT-Pro-B Natriuret Pep 42741 pg/mL 10/26/16 14:50 Total Protein 5.1 g/dL (6.3-8.2) L 10/26/16 14:50 Albumin 2.3 g/dL (3.5-5.0) L 10/26/16 14:50 Vitamin B12 688 pg/mL 10/30/16 05:54 Stool Occult Blood Negative (Negative) 10/26/16 14:50 Random Vancomycin 14.6 ug/mL 10/29/16 06:03 C. difficile (EIA) Intrp Positive (Negative) A 10/28/16 10:45 Blood Type O Positive 10/26/16 14:50 Blood Type Recheck No 10/26/16 14:50 Antibody Screen NEGATIVE 10/26/16 14:50 Crossmatch See Detail 10/26/16 14:50 Spec Expiration Date 10/29/2016234910/26/16 14:50 Assessment and Plan (1) C. difficile diarrhea Narrative/Plan: 76-year-old male has a history of psoriatic arthritis has had several bouts of Clostridium difficile colitis since earlier this year. He does appear this could be his fourth episode. He is being treated currently with vancomycin therapy and apparently not having great improvement. Constantly change management lead to Dificid and monitor his response. We'll continue with probiotic therapy. Yogurt as he tolerates. We'll add Saccharomyces also with this time. Monitor his stool output.Improved today. Continue to moisturize his skin. As noted Prograf was held due to his current infection. Nephrology is following his renal failure closely. Status: Acute (2) Congestive heart failure Status: Acute (3) Anemia Status: Acute (4) Renal failure (ARF), acute on chronic Status: Acute
[2016-11-08] MEDS: ATORVASTATIN 40 MG TAB PO SCH (21:57)
[2016-11-08] MEDS: INSULIN LISPRO (humaLOG) 300 UNIT/3 ML VIAL SQ SCH (22:02)
--- NOTE | 2016-11-08 23:13 | P.PN ---
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 He remain on IV Bumex. Patient eating better. Edema is going down. He has his fourth episode of C. diff colitis having failed vancomycin, now started on dicid per Dr. Kwok. Patient able to get from the bed to the commode with assistance. Having 2 or 3 bowel movements a day Review of systems: Was done for constitutional, cardiovascular, GI, pulmonary. relevant finding as above Current medications reviewed that included dificid, IV Bumex Physical examination: VITAL SIGNS: [96.8, 75, 16, 125/68, 98% room air] GENERAL APPEARANCE: BMI 34.9. Sitting up on a chair, slightly short of breath. EYES: Pupils equal. Conjunctiva normal. NECK: JVD unable to assess. Mass not palpable. RESPIRATORY: Respiratory effort increased. Lungs diminished breath sounds. CARDIOVASCULAR: First and second sounds normal. Mild edema. ABDOMEN: Soft. Liver and spleen not palpable. No tenderness. No mass palpable. PSYCHIATRY: Alert and oriented x3. Mood and affect normal. 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 Follow electrolytes closely. Care was discussed with the patient and . See how the patient fares on Dificid. Overall prognosis guarded.
[2016-11-08 23:20] LABS: Hemoglobin A1C 4.9 % (4.2-6.1)
[2016-11-09 05:38] LABS: Glucose,Whole Blood 104 mg/dL (75-99)
[2016-11-09] MEDS: INSULIN LISPRO (humaLOG) 300 UNIT/3 ML VIAL SQ SCH ×4 (05:58→22:06)
[2016-11-09 07:18] LABS: Calcium 8.1 mg/dL (8.4-10.2); Potassium 4.5 mmol/L (3.5-5.1)
--- NOTE | 2016-11-09 08:13 | P.PN ---
Subjective Patient is seen in follow-up for acute kidney injury on chronic kidney disease. 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 His creatinine peaked at 2.8 on October 29 and is 2.34 today. He was maintained on Lasix drip for several days and is now on IV Bumex. He was also anemic on admission and received a blood transfusion. Hemoglobin stable. Edema is improving. No vomiting. Noted to be C. diff positive. Oral intake is fair. Does have loose bowel movements but much improved. Denies chest pain. No events overnight. Vital signs are stable. General: The patient appeared well nourished and normally developed. HEENT: Head exam is unremarkable. Neck is without jugular venous distension. LUNGS: Scattered rhonchi at bases. Breath sounds decreased. HEART: Rate and Rhythm are regular. First and second heart sounds normal. No murmurs, rubs or gallops. ABDOMEN: Abdominal exam reveals normal bowel sounds. Non-tender and non- distended. No evidence of peritonitis. EXTREMITITES: 1+ edema. Objective - Vital Signs Vital signs: Vital Signs Temp 97.9 F 11/09/16 04:00 Pulse 76 11/09/16 04:00 Resp 17 11/09/16 04:00 BP 125/66 11/09/16 04:00 Pulse Ox 92 L 11/09/16 04:00 Intake & Output 11/08/16 11/09/16 11/09/16 18:59 06:59 18:59 Intake Total 0 100 1050 Output Total 400 400 3 Balance -400 -300 1047 Weight 104.7 kg Intake: Oral 0 100 1050 Output: Urine 400 400 Stool 3 Other: Voiding Method Urinal # Voids 0 1 600 - Labs CBC & Chem 7: 11/08/16 05:26 11/09/16 05:24 Labs: Abnormal Lab Results - Last 24 Hours (Table) 11/08/16 11/08/16 11/08/16 Range/Units 12:04 17:00 21:14 BUN (9-20) mg/dL Creatinine (0.66-1.25) mg/dL POC Glucose (mg/dL) 139 H 246 H 306 H (75-99) mg/dL Calcium (8.4-10.2) mg/dL 11/09/16 11/09/16 Range/Units 05:24 05:36 BUN 124 H* (9-20) mg/dL Creatinine 2.34 H (0.66-1.25) mg/dL POC Glucose (mg/dL) 104 H (75-99) mg/dL Calcium 8.1 L (8.4-10.2) mg/dL Assessment and Plan Plan: Assessment: #1. Nonoliguric acute kidney injury secondary to ATN secondary to acute anemia as well as cardiorenal syndrome. Creatinine down to 2.34 today. #2. 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 #3. Diastolic CHF. #4. Volume overload. Improving. #5. Acute anemia status post blood transfusion. Hemoglobin stable. Iron replete. #6. C. diff colitis on oral vancomycin. #7. Hypokalemia secondary to diuresis. Improved. Plan: Continue IV Bumex 1 mg daily. Maintain metolazone 5 mg twice daily. Low-salt and 1.5 L fluid restriction. Maintain ensure with meals. Maintain Prograf and prednisone - dose of Prograf decreased until C. diff resolves. Strict I's and O's and daily weights. Maintain Aranesp. Repeat electrolytes in the morning.
[2016-11-09] MEDS: BUMETANIDE 0.25 MG/ML 10 ML VIAL IV SCH (08:51)
[2016-11-09] MEDS: APIXABAN 2.5 MG TABLET PO SCH ×2 (08:52→22:06)
[2016-11-09] MEDS: CALCIUM CARBONATE 500 MG CHEWABLE PO SCH (08:53)
[2016-11-09] MEDS: ALLOPURINOL 100 MG TAB PO SCH ×2 (08:53→22:06)
[2016-11-09] MEDS: FAMOTIDINE 20 MG TAB PO SCH (08:54)
[2016-11-09] MEDS: FERROUS SULFATE 325 MG TAB PO SCH (08:54)
[2016-11-09] MEDS: FIDAXOMICIN 200 MG TABLET PO SCH ×2 (08:54→22:06)
[2016-11-09] MEDS: LISINOPRIL 10 MG TAB PO SCH (08:55)
[2016-11-09] MEDS: hydrALAZINE HCL 25 MG TAB PO SCH ×2 (08:55→22:06)
[2016-11-09] MEDS: predniSONE 10 MG TAB PO SCH (08:56)
[2016-11-09] MEDS: METOLAZONE 5 MG TAB PO SCH ×2 (08:56→22:07)
[2016-11-09] MEDS: POTASSIUM CHLORIDE ER 20 MEQ TAB.ER PO SCH ×2 (08:56→22:07)
[2016-11-09] MEDS: TAMSULOSIN 0.4 MG CAP.ER.24H PO SCH ×2 (08:57→22:08)
[2016-11-09] MEDS: LACTOBACILLUS ACIDOPH & BULGAR 1 EACH PACKET PO SCH (08:59)
[2016-11-09] MEDS: ISOSORBIDE MONONITRATE ER 30 MG TAB.ER.24H PO SCH (08:59)
[2016-11-09] MEDS: NYSTATIN 100,000UNIT/GM CREAM 30 GM TUBE TOPICAL SCH (09:48)
[2016-11-09 11:23] LABS: Glucose,Whole Blood 133 mg/dL (75-99)
[2016-11-09] MEDS: TACROLIMUS 1 MG CAP PO SCH (12:24)
[2016-11-09] MEDS: LEFLUNOMIDE 20 MG TAB PO SCH (12:24)
[2016-11-09] MEDS: PROPRANOLOL LA 60 MG CAP.SA.24H PO SCH (12:25)
--- NOTE | 2016-11-09 13:19 | P.PN ---
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 He remain on IV Bumex. Patient eating better. Edema is going down. He has his fourth episode of C. diff colitis having failed vancomycin, now started on difcid per Dr. Kwok. November 09/2017: Today patient feels better. Had only 1 bowel movement today, loose. Did tolerate his meals. Keen to go home. Edema is way down. Review of systems: Was done for constitutional, cardiovascular, GI, pulmonary. relevant finding as above Current medications reviewed that included dificid, IV Bumex Physical examination: VITAL SIGNS: [97.2, 88, 18, 136/70, 93% room air] GENERAL APPEARANCE: BMI 34.9. Laying in bed, comfortable. EYES: Pupils equal. Conjunctiva normal. NECK: JVD unable to assess. Mass not palpable. RESPIRATORY: Respiratory effort increased. Lungs diminished breath sounds. CARDIOVASCULAR: First and second sounds normal. Mild edema. ABDOMEN: Soft. Liver and spleen not palpable. No tenderness. No mass palpable. PSYCHIATRY: Alert and oriented x3. Mood and affect normal. Labs: Depression 4.5, nightly 124, creatinine 2.34 Assessment: -Acute on chronic congestive heart failure exacerbation from diastolic dysfunction on IV Bumex, improving -Acute kidney injury secondary to ATN from cardiorenal syndrome slow to respond -Acute recurrent C. diff colitis having failed vancomycin now on Dificid, improving -Psoriatic arthritis -Obesity BMI 34.9 -Primary osteoarthritis multiple joints bilateral -Essential hypertension -Hyperlipidemia -Chronic kidney disease stage III from biopsy-proven focal segmental glomerular sclerosis with a baseline creatinine holding around 1.7 Plan: Overall continues to look better. We'll keep on IV Bumex today and hopefully switch to by mouth Bumex tomorrow. Patient's very keen to go home. Did discuss with him that if his diarrhea is better we can look at that.
[2016-11-09 16:39] LABS: Glucose,Whole Blood 210 mg/dL (75-99)
[2016-11-09] MEDS: GABAPENTIN 300 MG CAP PO SCH ×2 (17:51→22:07)
[2016-11-09 18:13] VITALS: RESP 18
[2016-11-09 20:26] LABS: Glucose,Whole Blood 277 mg/dL (75-99)
[2016-11-09] MEDS: ATORVASTATIN 40 MG TAB PO SCH (22:06)
[2016-11-10 05:34] LABS: Calcium 8.3 mg/dL (8.4-10.2); Magnesium 2.3 mg/dL (1.6-2.3); Potassium 4.5 mmol/L (3.5-5.1)
[2016-11-10 06:02] LABS: Glucose,Whole Blood 103 mg/dL (75-99)
[2016-11-10] MEDS: NYSTATIN 100,000UNIT/GM CREAM 30 GM TUBE TOPICAL SCH ×2 (06:50→10:38)
[2016-11-10] MEDS: INSULIN LISPRO (humaLOG) 300 UNIT/3 ML VIAL SQ SCH ×3 (06:50→16:52)
[2016-11-10] MEDS: TACROLIMUS 1 MG CAP PO SCH (09:35)
[2016-11-10] MEDS: APIXABAN 2.5 MG TABLET PO SCH (09:35)
[2016-11-10] MEDS: TAMSULOSIN 0.4 MG CAP.ER.24H PO SCH (09:35)
[2016-11-10] MEDS: ALLOPURINOL 100 MG TAB PO SCH (09:35)
[2016-11-10] MEDS: hydrALAZINE HCL 25 MG TAB PO SCH (09:35)
[2016-11-10] MEDS: FAMOTIDINE 20 MG TAB PO SCH (09:35)
[2016-11-10] MEDS: METOLAZONE 5 MG TAB PO SCH (09:35)
[2016-11-10] MEDS: ISOSORBIDE MONONITRATE ER 30 MG TAB.ER.24H PO SCH (09:35)
[2016-11-10] MEDS: FIDAXOMICIN 200 MG TABLET PO SCH ×2 (09:35→19:19)
[2016-11-10] MEDS: LISINOPRIL 10 MG TAB PO SCH (09:35)
[2016-11-10] MEDS: FERROUS SULFATE 325 MG TAB PO SCH (09:36)
[2016-11-10] MEDS: predniSONE 10 MG TAB PO SCH (09:36)
[2016-11-10] MEDS: BUMETANIDE 0.25 MG/ML 10 ML VIAL IV SCH (09:36)
[2016-11-10] MEDS: LACTOBACILLUS ACIDOPH & BULGAR 1 EACH PACKET PO SCH (09:36)
[2016-11-10] MEDS: CALCIUM CARBONATE 500 MG CHEWABLE PO SCH (09:36)
[2016-11-10] MEDS: POTASSIUM CHLORIDE ER 20 MEQ TAB.ER PO SCH (09:36)
--- NOTE | 2016-11-10 10:26 | P.PN ---
Subjective Patient is seen in follow-up for acute kidney injury on chronic kidney disease. 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 His creatinine peaked at 2.8 on October 29 and is 2.4 today. He was maintained on Lasix drip for several days and is now on IV Bumex. He was also anemic on admission and received a blood transfusion. Hemoglobin stable. Edema is improving. No vomiting. Noted to be C. diff positive. Oral intake is fair. Does have loose bowel movements but much improved. Denies chest pain. No events overnight. Eager to go home. Vital signs are stable. General: The patient appeared well nourished and normally developed. HEENT: Head exam is unremarkable. Neck is without jugular venous distension. LUNGS: Scattered rhonchi at bases. Breath sounds decreased. HEART: Rate and Rhythm are regular. First and second heart sounds normal. No murmurs, rubs or gallops. ABDOMEN: Abdominal exam reveals normal bowel sounds. Non-tender and non- distended. No evidence of peritonitis. EXTREMITITES: 1+ edema. Objective - Vital Signs Vital signs: Vital Signs Temp 97.2 F L 11/10/16 04:00 Pulse 79 11/10/16 04:00 Resp 18 11/10/16 04:00 BP 138/78 11/10/16 04:00 Pulse Ox 93 L 11/10/16 04:00 Intake & Output 11/09/16 11/10/16 11/10/16 18:59 06:59 18:59 Intake Total 1770 240 Output Total 1003 576 Balance 767 -576 240 Weight 104.2 kg Intake: Oral 1770 240 Output: Urine 1000 575 Stool 3 1 Other: Voiding Method Urinal Urinal Diaper # Voids 1 1 - Labs CBC & Chem 7: 11/08/16 05:26 11/10/16 04:18 Labs: Abnormal Lab Results - Last 24 Hours (Table) 11/09/16 11/09/16 11/09/16 Range/Units 11:20 16:35 20:23 Chloride (98-107) mmol/L BUN (9-20) mg/dL Creatinine (0.66-1.25) mg/dL POC Glucose (mg/dL) 133 H 210 H 277 H (75-99) mg/dL Calcium (8.4-10.2) mg/dL 11/10/16 11/10/16 Range/Units 04:18 06:00 Chloride 108 H (98-107) mmol/L BUN 117 H* (9-20) mg/dL Creatinine 2.40 H (0.66-1.25) mg/dL POC Glucose (mg/dL) 103 H (75-99) mg/dL Calcium 8.3 L (8.4-10.2) mg/dL Assessment and Plan Plan: Assessment: #1. Nonoliguric acute kidney injury secondary to ATN secondary to acute anemia as well as cardiorenal syndrome. Creatinine 2.4 today. #2. 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 #3. Diastolic CHF. #4. Volume overload. Improving. #5. Acute anemia status post blood transfusion. Hemoglobin stable. Iron replete. #6. C. diff colitis on oral vancomycin. #7. Hypokalemia secondary to diuresis. Improved. Plan: Continue IV Bumex 1 mg daily. Maintain metolazone 5 mg twice daily. Low-salt and 1.5 L fluid restriction. Maintain ensure with meals. Maintain Prograf and prednisone - dose of Prograf decreased until C. diff resolves. Strict I's and O's and daily weights. Maintain Aranesp. Repeat electrolytes in the morning. Stable to be discharged home from nephrology standpoint on Bumex 1 mg twice daily. He is to weigh himself daily and to increase the dose of diuretics if gains more than 2-3 pounds. He will need a BMP checked within 3-4 days of discharge and needs to follow-up as an outpatient in the next 2 weeks.
[2016-11-10 10:32] VITALS: BMI 34.9
[2016-11-10 10:42] VITALS: PULSE 93
[2016-11-10 11:19] LABS: Glucose,Whole Blood 151 mg/dL (75-99)
[2016-11-10] MEDS: LEFLUNOMIDE 20 MG TAB PO SCH (12:12)
[2016-11-10] MEDS: PROPRANOLOL LA 60 MG CAP.SA.24H PO SCH (12:12)
[2016-11-10] MEDS ORDERED: BUMETANIDE 1 MG TAB PO SCH (16:00)
[2016-11-10 16:14] LABS: Glucose,Whole Blood 144 mg/dL (75-99)
[2016-11-10] MEDS: GABAPENTIN 300 MG CAP PO SCH (16:52)
[2016-11-10 17:03] VITALS: BP 131/83; TEMP 97.6
--- NOTE | 2016-11-10 20:13 | P.DS ---
Providers Date of admission: 10/26/16 16:45 Expected date of discharge: 11/10/16 Attending physician: Luther Bailey Consults: 10/26/16 16:45 Consult Physician Routine Consulting Provider: Lorena Avina Consult Reason/Comments: chf Do you want consulting provider notified?: Yes Consult Physician Routine Consulting Provider: Pamella Diallo Consult Reason/Comments: crf Do you want consulting provider notified?: Yes 11/06/16 08:49 Consult Physician Routine Consulting Provider: Bird Jay Consult Reason/Comments: c diff Do you want consulting provider notified?: Yes Dr. Kwok from infectious disease Primary care physician: 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 He responded well to IV Bumex. . He has his fourth episode of C. diff colitis having failed vancomycin, now started on difcid per Dr. Kwok.Patient did use a significant amount, and had minimal edema by the time of discharge. Patient able to transfer from the bed to the commode. Patient is put on deficit for C. diff, and was down to 1 or 2 bowel movements by the time of discharge eating much better. . At the time of discharge bun was 117, creatinine was 2.4. It was 87/2.59 upon presentation. Because of insurance reasons and upper Dr. Kwok reviewed the case is being put back on Flagyl as deficit will not be authorized until a full course of other medications completed. Discharge planning more than 35 minutes. Physical examination: Lungs decreased breath sounds. Cardiovascular pulses muffled. Minimal edema. Psych alert oriented 3. Plan - Discharge Summary New Discharge Prescriptions: New Bumetanide [BUMEX] 1 mg PO BID@0900,1600 #60 tab Lactobacillus Acidoph & Bulgar [Lactinex] 1 each PO DAILY packet metroNIDAZOLE [Flagyl] 500 mg PO TID #42 tab Continue Sod Phos Di, Dukes/K Phos Dukes [Phospha 250 Neutral Tablet] 250 mg PO BID Tamsulosin HCl [Flomax] 0.4 mg PO BID Ranitidine HCl [Zantac] 150 mg PO BID Leflunomide [Arava] 20 mg PO AC-LUNCH Ergocalciferol [Vitamin D2 (DRISDOL)] 50,000 units PO DEAL Propranolol LA [Inderal LA] 60 mg PO AC-LUNCH predniSONE 10 mg PO DAILY Calcium Carbonate [Calcium] 600 mg PO DAILY Atorvastatin [Lipitor] 40 mg PO HS [place]-3 Fatty Acids/Fish Oil [Fish Oil 1,000 mg Softgel] 1 cap PO DAILY Tacrolimus [Prograf] 1 mg PO TID Apixaban [Eliquis] 2.5 mg PO BID #60 tablet Aspirin 81 mg PO DAILY chew Potassium Chloride ER [K-Dur 20] 20 meq PO BID #60 tab.er.prt Gabapentin [Neurontin] 600 mg PO BID@1600,2200 Isosorbide Mononitrate ER [Imdur] 30 mg PO DAILY #1 tab traMADol HCL [Ultram] 50 mg PO BID PRN PRN Reason: Pain Multivitamins, Thera [Multivitamin (formulary)] 1 tab PO DAILY Metolazone [Zaroxolyn] 5 mg PO BID Ferrous Sulfate [Iron (65 MG Elemental)] 325 mg PO DAILY Enalapril [Vasotec] 20 mg PO DAILY Allopurinol [Zyloprim] 100 mg PO BID L.acidoph,Paracasei, B.lactis [Probiotic] 1 cap PO DAILY Nystatin 100,000Unit/gm Cream [Mycostatin Cream] 100,000 units TOPICAL BID Discontinued Bumetanide 2 mg PO TID Discharge Medication List Ergocalciferol [Vitamin D2 (DRISDOL)] 50,000 units PO DEAL 01/16/14 [History] Leflunomide [Arava] 20 mg PO AC-LUNCH 01/16/14 [History] Ranitidine HCl [Zantac] 150 mg PO BID 01/16/14 [History] Sod Phos Di, Dukes/K Phos Dukes [Phospha 250 Neutral Tablet] 250 mg PO BID [History] Tamsulosin HCl [Flomax] 0.4 mg PO BID 01/16/14 [History] Propranolol LA [Inderal LA] 60 mg PO AC-LUNCH 12/17/14 [History] Calcium Carbonate [Calcium] 600 mg PO DAILY 03/25/16 [History] predniSONE 10 mg PO DAILY 03/25/16 [History] Atorvastatin [Lipitor] 40 mg PO HS 04/18/16 [History] [place]-3 Fatty Acids/Fish Oil [Fish Oil 1,000 mg Softgel] 1 cap PO DAILY [History] Tacrolimus [Prograf] 1 mg PO TID 08/19/16 [History] Apixaban [Eliquis] 2.5 mg PO BID #60 tablet 08/23/16 [Rx] Aspirin 81 mg PO DAILY chew 08/23/16 [Rx] Potassium Chloride ER [K-Dur 20] 20 meq PO BID #60 tab.er.prt 08/23/16 [Rx] Gabapentin [Neurontin] 600 mg PO BID@1600,2200 09/04/16 [History] Isosorbide Mononitrate ER [Imdur] 30 mg PO DAILY #1 tab 09/10/16 [Rx] Allopurinol [Zyloprim] 100 mg PO BID 10/26/16 [History] Enalapril [Vasotec] 20 mg PO DAILY 10/26/16 [History] Ferrous Sulfate [Iron (65 MG Elemental)] 325 mg PO DAILY 10/26/16 [History] L.acidoph,Paracasei, B.lactis [Probiotic] 1 cap PO DAILY 10/26/16 [History] Metolazone [Zaroxolyn] 5 mg PO BID 10/26/16 [History] Multivitamins, Thera [Multivitamin (formulary)] 1 tab PO DAILY 10/26/16 [History ] traMADol HCL [Ultram] 50 mg PO BID PRN 10/26/16 [History] Nystatin 100,000Unit/gm Cream [Mycostatin Cream] 100,000 units TOPICAL BID 11/01 [History] Bumetanide [BUMEX] 1 mg PO BID@0900,1600 #60 tab 11/10/16 [Rx] Lactobacillus Acidoph & Bulgar [Lactinex] 1 each PO DAILY packet 11/10/16 [Rx] metroNIDAZOLE [Flagyl] 500 mg PO TID #42 tab 11/10/16 [Rx] Follow up Appointment(s)/Referral(s): Pamella Diallo MD [STAFF PHYSICIAN] - 1 Week Clay Hall DO [Primary Care Provider] - 1-2 days Burt Kwok MD [STAFF PHYSICIAN] - 2 Weeks [facility], [NON-STAFF] - Ambulatory/Diagnostic Orders: Basic Metabolic Panel [LAB.AMB] Location: Determined By Patient Basic Metabolic Panel [LAB.AMB] Time Frame: 3 Days, Location: Determined By Patient Patient Instructions/Handouts: Heart Failure (DC) Activity/Diet/Wound Care/Special Instructions: Patient must weight themselves DAILY!! Discharge Disposition: HOME WITH HOME HEALTH SERVICES
--- NOTE | 2016-11-10 21:35 | P.PN ---
Subjective Principal diagnosis: weakness 6-year-old male with a history of psoriatic arthritis who is here significant difficulties with his skin and joints in the past. In April he had a significant cellulitis of his leg. He responded well to antibiotic therapy. However then developed diarrhea. Was on evidence of Clostridium difficile colitis. It appears since that time he's had several bouts of diarrhea that have been thought to be C. diff related. Review of the laboratory shows evidence of a C. diff positive of 10/28/2016. The patient receiving vancomycin therapy with ongoing diarrhea. Because of this the infectious diseases consultation was requested. Patient is quite a poor historian. Is able to relate improved diarrhea. He would like just to go home. He stated he is tired of being hospitalized and being sick. No fevers Objective - Vital Signs Vital signs: Vital Signs Temp 97.6 F 11/10/16 16:00 Pulse 93 11/10/16 16:00 Resp 18 11/10/16 16:00 BP 131/83 11/10/16 16:00 Pulse Ox 94 L 11/10/16 16:00 Intake & Output 11/10/16 11/10/16 11/11/16 06:59 18:59 06:59 Intake Total 720 Output Total 576 903 Balance -576 -183 Weight 104.2 kg 104.2 kg Intake: Oral 720 Output: Urine 575 900 Stool 1 3 Other: Voiding Method Urinal Urinal Diaper Diaper # Voids 1 2 - Exam Pleasant 76-year-old gentleman who is comfortable at this time HEENT: Anicteric conjunctiva are pink and moist nasal mucosa grossly intact without significant lesions, there is no thrush. Neck: The neck is supple without significant lymphadenopathy or thyromegaly. Lungs: Good bilateral air entry without wheezing. Few basilar crackles There is no significant bronchial sounds. There is no egophony or dullness. Heart: Regular rate and rhythm with an audible S1-S2, no S3 or S4 There is no significant murmur click or rub, PMI was nondisplaced. Abdomen: Obese, Positive bowel sounds soft and nontender without palpable masses or organomegaly. There was no guarding or rebound. Extremities: Significant deformity to the upper extremities is noted. Fortunately there is not much tenderness to range of motion. Not a lot of active synovitis. The lower extremities have evidence of chronic edema. No active open ulcerations are seen. There are a few healing abrasions. There is very dry skin on the toes but no scott open ulcerations or dermatophytosis. Neuro: Awake alert oriented to person and place. Patient is not is good historian as I recall from the last visit. He is able to move upper and lower extremity is on command. - Labs CBC & Chem 7: 11/08/16 05:26 11/10/16 04:18 Labs: Abnormal Lab Results - Last 24 Hours (Table) 11/10/16 11/10/16 11/10/16 Range/Units 04:18 06:00 11:16 Chloride 108 H (98-107) mmol/L BUN 117 H* (9-20) mg/dL Creatinine 2.40 H (0.66-1.25) mg/dL POC Glucose (mg/dL) 103 H 151 H (75-99) mg/dL Calcium 8.3 L (8.4-10.2) mg/dL 11/10/16 Range/Units 16:10 Chloride (98-107) mmol/L BUN (9-20) mg/dL Creatinine (0.66-1.25) mg/dL POC Glucose (mg/dL) 144 H (75-99) mg/dL Calcium (8.4-10.2) mg/dL Laboratory Results WBC 8.6 k/uL (3.8-10.6) 11/08/16 05:26 RBC 2.74 m/uL (4.30-5.90) L 11/08/16 05:26 Hgb 8.7 gm/dL (13.0-17.5) L 11/08/16 05:26 Hct 27.1 % (39.0-53.0) L 11/08/16 05:26 MCV 98.8 fL (80.0-100.0) 11/08/16 05:26 MCH 31.7 pg (25.0-35.0) 11/08/16 05:26 MCHC 32.0 g/dL (31.0-37.0) 11/08/16 05:26 RDW 16.5 % (11.5-15.5) H 11/08/16 05:26 Plt Count 236 k/uL (150-450) 11/08/16 05:26 Neutrophils % 83 % 11/08/16 05:26 Lymphocytes % 8 % 11/08/16 05:26 Monocytes % 5 % 11/08/16 05:26 Eosinophils % 3 % 11/08/16 05:26 Basophils % 0 % 11/08/16 05:26 Neutrophils # 7.1 k/uL (1.3-7.7) 11/08/16 05:26 Lymphocytes # 0.7 k/uL (1.0-4.8) L 11/08/16 05:26 Monocytes # 0.4 k/uL (0-1.0) 11/08/16 05:26 Eosinophils # 0.3 k/uL (0-0.7) 11/08/16 05:26 Basophils # 0.0 k/uL (0-0.2) 11/08/16 05:26 Hypochromasia Slight 11/07/16 05:31 Anisocytosis Slight 11/08/16 05:26 Macrocytosis Slight 11/08/16 05:26 PT 10.3 sec (9.0-12.0) 10/26/16 14:50 INR 1.0 (<1.1) 10/26/16 14:50 APTT 23.6 sec (22.0-30.0) 10/26/16 14:50 Sodium 144 mmol/L (137-145) 11/10/16 04:18 Potassium 4.5 mmol/L (3.5-5.1) 11/10/16 04:18 Chloride 108 mmol/L (98-107) H 11/10/16 04:18 Carbon Dioxide 29 mmol/L (22-30) 11/10/16 04:18 Anion Gap 7 mmol/L 11/10/16 04:18 BUN 117 mg/dL (9-20) H* 11/10/16 04:18 Creatinine 2.40 mg/dL (0.66-1.25) H 11/10/16 04:18 Est GFR (MDRD) Af Amer 32 (>60 ml/min/1.73 sqM) 11/10/16 04:18 Est GFR (MDRD) Non-Af 27 (>60 ml/min/1.73 sqM) 11/10/16 04:18 Glucose 79 mg/dL (74-99) 11/10/16 04:18 POC Glucose (mg/dL) 144 mg/dL (75-99) H 11/10/16 16:10 POC Glu [employer] ID Otilia Engel 11/10/16 16:[address] Glu mg/dL 94 mg/dL 11/08/16 05:26 Hemoglobin A1c 4.9 % (4.2-6.1) 11/08/16 05:26 Calcium 8.3 mg/dL (8.4-10.2) L 11/10/16 04:18 Magnesium 2.3 mg/dL (1.6-2.3) 11/10/16 04:18 Iron 44 ug/dL (49-181) L 10/27/16 02:43 TIBC 202 ug/dL (261-462) L 10/27/16 02:43 % Saturation 21.8 % (20-50) 10/27/16 02:43 Ferritin 1380 ng/mL (18-464) H 10/27/16 02:43 Total Bilirubin 0.6 mg/dL (0.2-1.3) 10/26/16 14:50 AST 26 U/L (17-59) 10/26/16 14:50 ALT 25 U/L (21-72) 10/26/16 14:50 Alkaline Phosphatase 121 U/L (38-126) 10/26/16 14:50 Total Creatine Kinase 66 U/L (55-170) 10/26/16 14:50 CK-MB (CK-2) 2.2 ng/mL (0.0-2.4) 10/26/16 14:50 CK-MB (CK-2) Rel Index 3.3 10/26/16 14:50 Troponin I 0.068 ng/mL (0.000-0.034) H* 10/27/16 02:43 NT-Pro-B Natriuret Pep 47608 pg/mL 10/26/16 14:50 Total Protein 5.1 g/dL (6.3-8.2) L 10/26/16 14:50 Albumin 2.3 g/dL (3.5-5.0) L 10/26/16 14:50 Vitamin B12 688 pg/mL 10/30/16 05:54 Stool Occult Blood Negative (Negative) 10/26/16 14:50 Random Vancomycin 14.6 ug/mL 10/29/16 06:03 C. difficile (EIA) Intrp Positive (Negative) A 10/28/16 10:45 Blood Type O Positive 10/26/16 14:50 Blood Type Recheck No 10/26/16 14:50 Antibody Screen NEGATIVE 10/26/16 14:50 Crossmatch See Detail 10/26/16 14:50 Spec Expiration Date 10/29/2016234910/26/16 14:50 Assessment and Plan (1) C. difficile diarrhea Narrative/Plan: 76-year-old male has a history of psoriatic arthritis has had several bouts of Clostridium difficile colitis since earlier this year. He does appear this could be his fourth episode. He is being treated currently with vancomycin therapy and apparently not having great improvement. Constantly was changed over to Dificid . The patient is not ready for discharge to home. His insurance company will not allow Dificid. Constantly we'll give him another 14 days of metronidazole. If he fails metronidazole therapy would then consider coverage for Dificid. We'll continue with probiotic therapy. Yogurt as he tolerates. We'll add Saccharomyces also with this time. Monitor his stool output.Improved today. Continue to moisturize his skin. As noted Prograf was held due to his current infection. Nephrology is following his renal failure closely. If he does have recurrence of his C. difficile discussed with the patient's family and his he would be a candidate for fecal transplantation. Status: Acute (2) Congestive heart failure Status: Acute (3) Anemia Status: Acute (4) Renal failure (ARF), acute on chronic Status: Acute
== END 2016-11-10 20:20 | disposition home health service (06) | DRG 291 ==
LOC: EC 14:15 → 6SEL 16:45
PROVIDERS: ADMIT Hospitalist; ATTEND Hospitalist
PROC: 30233N1 Transfusion of Nonautologous Red Blood Cells into Peripheral Vein, Percutaneous Approach (ICD-10-PCS; principal; 2016-10-27)
DX: I13.0 Hypertensive heart and chronic kidney disease with heart failure and stage 1 through stage 4 chronic kidney disease, or unspecified chronic kidney disease (principal); I50.33 Acute on chronic diastolic (congestive) heart failure; J96.01 Acute respiratory failure with hypoxia; N17.0 Acute kidney failure with tubular necrosis; J18.9 Pneumonia, unspecified organism; A04.7 Enterocolitis due to Clostridium difficile; E11.22 Type 2 diabetes mellitus with diabetic chronic kidney disease; I48.1 Persistent atrial fibrillation; D62 Acute posthemorrhagic anemia; N18.3 Chronic kidney disease, stage 3 (moderate); N04.9 Nephrotic syndrome with unspecified morphologic changes; I48.2 Chronic atrial fibrillation; E66.01 Morbid (severe) obesity due to excess calories; D50.0 Iron deficiency anemia secondary to blood loss (chronic); E78.5 Hyperlipidemia, unspecified; E87.6 Hypokalemia; H91.90 Unspecified hearing loss, unspecified ear; I45.10 Unspecified right bundle-branch block; L40.50 Arthropathic psoriasis, unspecified; M15.9 Polyosteoarthritis, unspecified; N26.9 Renal sclerosis, unspecified; N40.0 Benign prostatic hyperplasia without lower urinary tract symptoms; T50.2X5A Adverse effect of carbonic-anhydrase inhibitors, benzothiadiazides and other diuretics, initial encounter; Z68.39 Body mass index [BMI] 39.0-39.9, adult; Z79.52 Long term (current) use of systemic steroids; Z79.899 Other long term (current) drug therapy; Z82.49 Family history of ischemic heart disease and other diseases of the circulatory system; Z85.828 Personal history of other malignant neoplasm of skin; Z86.73 Personal history of transient ischemic attack (TIA), and cerebral infarction without residual deficits; Z98.1 Arthrodesis status; Z88.1 Allergy status to other antibiotic agents
CPT/HCPCS: 36415; 71010; 71020; 80048; 80053; 80202; 82272; 82550; 82553; 82607; 82728; 83036; 83540; 83550; 83735; 83880; 84484; 85025; 85027; 85610; 85730; 86850; 86900; 86901; 86920; 87324; 93005; 94760

== ENCOUNTER 2017-05-15 23:03 | Inpatient (IN) | payer MEDICARE ==
[2017-05-15] MEDS ORDERED: ACETAMINOPHEN IV (For NPO) 1,000 MG in EMPTY BAG 1 BAG IVPB STA (23:50)
[2017-05-15] MEDS ORDERED: SODIUM CHLORIDE 0.9% 1,000 ML IV STA ×2 (23:50)
[2017-05-15] MEDS ORDERED: KETOROLAC 30 MG/ML 1 ML VIAL IVP STA (23:50)
[2017-05-16] MEDS ORDERED: DILTIAZEM 5 MG/ML 5 ML VIAL IVP STA (00:01)
--- NOTE | 2017-05-16 00:03 | ED ---
General Adult HPI - General Chief complaint: Weakness Stated complaint: weakness Time Seen by Provider: 05/15/17 23:05 Source: EMS, RN notes reviewed, old records reviewed Mode of arrival: EMS Limitations: no limitations - History of Present Illness Initial comments: This is a 77-year-old male to the ER for evaluation. This patient presents today for evaluation regards to infection and altered mental state. Patient is calm. Medical history, patient is unable to this reports were answered and their mental state, history from EMS, patient's also states patient has been very sick lately concerned increasing altered mental status and weakness history and had outpatient lab tests showing urinary tract infection. No known cultures - Related Data Home Medications Medication Instructions Recorded Confirmed Ergocalciferol [Vitamin D2 50,000 units PO DEAL 01/16/14 05/15/17 (DRISDOL)] Leflunomide [Arava] 20 mg PO DAILY 01/16/14 05/15/17 Ranitidine HCl [Zantac] 150 mg PO BID 01/16/14 05/15/17 Sod Phos Di, [place]/K Phos [place] 250 mg PO BID 01/16/14 05/15/17 [Phospha 250 Neutral Tablet] Tamsulosin HCl [Flomax] 0.4 mg PO BID 01/16/14 05/15/17 Propranolol LA [Inderal LA] 60 mg PO DAILY 12/17/14 05/15/17 predniSONE 10 mg PO DAILY 03/25/16 05/15/17 Atorvastatin [Lipitor] 40 mg PO HS 04/18/16 05/15/[address] [place]-3 Fatty Acids/Fish Oil [Fish 1 cap PO DAILY 04/18/16 05/15/17 Oil 1,000 mg Softgel] Tacrolimus [Prograf] 1 mg PO DAILY 08/19/16 05/15/17 Gabapentin [Neurontin] 600 mg PO BID 09/04/16 05/15/17 Allopurinol [Zyloprim] 100 mg PO BID 10/26/16 05/15/17 L.acidoph,Paracasei, B.lactis 1 cap PO DAILY 10/26/16 05/15/17 [Probiotic] Metolazone [Zaroxolyn] 5 mg PO BID 10/26/16 05/15/17 Multivitamins, Thera [Multivitamin 1 tab PO DAILY 10/26/16 05/15/17 (formulary)] traMADol HCL [Ultram] 50 mg PO BID PRN 10/26/16 05/15/17 Bumetanide [BUMEX] 2 mg PO BID 04/27/17 05/15/17 Diltiazem HCl [Diltiazem 24Hr ER] 120 mg PO DAILY 04/27/17 05/15/17 Potassium Chloride ER [K-Dur 20] 20 meq PO HS 04/27/17 05/15/17 Prevalite Powder 5.5 gm PO DAILY 04/27/17 05/15/17 Calcium Carbonate/Vitamin D3 1 tab PO DAILY 05/15/17 05/15/17 [Calcium 600-Vit D3 200 Tablet] Enalapril [Vasotec] 5 mg PO DAILY 05/15/17 05/15/17 Previous Rx's Medication Instructions Recorded Apixaban [Eliquis] 2.5 mg PO BID #60 tablet 08/23/16 Isosorbide Mononitrate ER [Imdur] 30 mg PO DAILY #1 tab 09/10/16 Allergies Allergy/AdvReac Type Severity Reaction Status Date / Time sumatriptan [From Imitrex] Allergy Swelling Verified 05/15/17 23:36 sumatriptan succinate Allergy Swelling Verified 05/15/17 23:36 [From Imitrex] cephalexin [From Keflex] AdvReac Diarrhea Verified 05/15/17 23:36 Review of Systems ROS Statement: Those systems with pertinent positive or pertinent negative responses have been documented in the HPI. ROS Other: All systems not noted in ROS Statement are negative. Past Medical History Past Medical History: Atrial Fibrillation, Cancer, Heart Failure, Hearing Disorder / Deafness, Hyperlipidemia, Hypertension, Musculoskeletal Disorder, Renal Disease Additional Past Medical History / Comment(s): HX C-DIFF 09-04-16. skin ca. psoriatic arthritis. uti, nephrotic syndrome. chronic back pain. DENIES GOUT. PAST HX OF MIGRAINES. HX anemia,iron infusion. patient states he is pre- diabetic. EDEMA .edward torn rotator cuffs(had a previous sx on rt side but injured it again). A-Fib diagnosis March 2017; pt. responded to oral medication. History of Any Multi-Drug Resistant Organisms: None Reported Past Surgical History: Back Surgery, Hernia Repair, Orthopedic Surgery Additional Past Surgical History / Comment(s): L4-5 LUMBAR FUSION-(total of 4 back surguries)NECK FUSION. RT ROTATOR CUFF," kidney bx-neg". Surgical scar from skin cancer/surgery on right side of head. MULT PAIN PROC, LAST 05/12/16. Fecal transfusion at [facility] for C-Diff in November 2016 Past Anesthesia/Blood Transfusion Reactions: No Reported Reaction Past Psychological History: No Psychological Hx Reported Smoking Status: Never smoker Past Alcohol Use History: None Reported Past Drug Use History: None Reported - Past Family History Father Additional Family Medical History / Comment(s): as a results of burn injuries in work related accident Mother Additional Family Medical History / Comment(s): at age 84 from heart problems Sister(s) Family Medical History: Cancer Additional Family Medical History / Comment(s): mother-- HTN. brother-- Diabetes, kidney problems General Exam Limitations: altered mental status General appearance: alert, lethargic, in distress Head exam: Present: atraumatic, normocephalic, normal inspection Eye exam: Present: normal appearance, PERRL, EOMI. Absent: scleral icterus, conjunctival injection, periorbital swelling ENT exam: Present: normal exam, mucous membranes moist Neck exam: Present: normal inspection. Absent: tenderness, meningismus, lymphadenopathy Respiratory exam: Present: normal lung sounds bilaterally. Absent: respiratory distress, wheezes, rales, rhonchi, stridor Cardiovascular Exam: Present: tachycardia, irregular rhythm, normal heart sounds. Absent: systolic murmur, diastolic murmur, rubs, gallop, clicks GI/Abdominal exam: Present: soft, normal bowel sounds. Absent: distended, tenderness, guarding, rebound, rigid Extremities exam: Present: normal inspection, full ROM, normal capillary refill. Absent: tenderness, pedal edema, joint swelling, calf tenderness Back exam: Present: normal inspection Neurological exam: Present: alert, oriented X3, CN II-XII intact Psychiatric exam: Present: normal affect, normal mood Skin exam: Present: warm, dry, intact, normal color. Absent: rash Course Vital Signs 05/15/17 05/16/17 23:05 00:17 Temperature 102.6 F H Pulse Rate 129 H 97 Respiratory 20 20 Rate Blood Pressure 147/95 151/77 O2 Sat by Pulse 88 L 92 L Oximetry - Reevaluation(s) Reevaluation #1: 01/08/18 00:56 Patient is improving with symptomatic therapy hydration, fever control Reevaluation #2: 05/16/17 00:57 Outpatient lab results are obtained, no culture record found EKG Findings - EKG Comments: EKG Findings:: EKG shows tachycardia, rate of 112, QRS 1:30, QTc 526 Medical Decision Making - Medical Decision Making 77 male here for evaluation of fever, weakness, altered mental state. Patient is urinary tract infection, we'll place an IV antibiotics with care this patient is significant history of C. diff as well as recent history of febrile transplant. Patient has blood cultures and urine cultures obtained. - Lab Data Result diagrams: 05/15/17 23:10 05/15/17 23:10 Lab Results 05/15/17 05/15/17 05/15/17 Range/Units 23:10 23:10 23:10 WBC 17.0 H (3.8-10.6) k/uL RBC 3.40 L (4.30-5.90) m/uL Hgb 10.5 L (13.0-17.5) gm/dL Hct 33.8 L (39.0-53.0) % MCV 99.4 (80.0-100.0) fL MCH 31.0 (25.0-35.0) pg MCHC 31.2 (31.0-37.0) g/dL RDW 16.4 H (11.5-15.5) % Plt Count 182 (150-450) k/uL Neutrophils % 94 % Lymphocytes % 2 % Monocytes % 3 % Eosinophils % 1 % Basophils % 0 % Neutrophils # 15.9 H (1.3-7.7) k/uL Lymphocytes # 0.3 L (1.0-4.8) k/uL Monocytes # 0.6 (0-1.0) k/uL Eosinophils # 0.1 (0-0.7) k/uL Basophils # 0.0 (0-0.2) k/uL Hypochromasia Slight Anisocytosis Slight Macrocytosis Slight PT (9.0-12.0) sec INR (<1.2) APTT (22.0-30.0) sec Sodium 138 (137-145) mmol/L Potassium 4.3 (3.5-5.1) mmol/L Chloride 98 (98-107) mmol/L Carbon Dioxide 31 H (22-30) mmol/L Anion Gap 9 mmol/L BUN 111 H* (9-20) mg/dL Creatinine 2.60 H (0.66-1.25) mg/dL Est GFR (MDRD) Af Amer 29 (>60 ml/min/1.73 sqM) Est GFR (MDRD) Non-Af 24 (>60 ml/min/1.73 sqM) Glucose 130 H (74-99) mg/dL Plasma Lactic Acid [place] (0.7-2.0) mmol/L Calcium 8.7 (8.4-10.2) mg/dL Phosphorus 4.7 H (2.5-4.5) mg/dL Magnesium 1.5 L (1.6-2.3) mg/dL Total Bilirubin 0.4 (0.2-1.3) mg/dL AST 34 (17-59) U/L ALT 35 (21-72) U/L Alkaline Phosphatase 97 (38-126) U/L Total Creatine Kinase 52 L (55-170) U/L CK-MB (CK-2) 1.2 (0.0-2.4) ng/mL CK-MB (CK-2) Rel Index 2.3 Troponin I 0.064 H* (0.000-0.034) ng/mL Total Protein 6.1 L (6.3-8.2) g/dL Albumin 2.8 L (3.5-5.0) g/dL Urine Color Urine Appearance (Clear) Urine pH (5.0-8.0) Ur Specific Picher (1.001-1.035) Urine Protein (Negative) Urine Glucose (UA) (Negative) Urine Ketones (Negative) Urine Blood (Negative) Urine Nitrite (Negative) Urine Bilirubin (Negative) Urine Urobilinogen (<2.0) mg/dL Ur Leukocyte Esterase (Negative) Urine WBC (0-5) /hpf Urine WBC Clumps (None) /hpf Urine Bacteria (None) /hpf Influenza Type A RNA (Not Detectd) Influenza Type B (PCR) (Not Detectd) 05/15/17 05/15/17 05/15/17 Range/Units 23:10 23:10 23:10 WBC (3.8-10.6) k/uL RBC (4.30-5.90) m/uL Hgb (13.0-17.5) gm/dL Hct (39.0-53.0) % MCV (80.0-100.0) fL MCH (25.0-35.0) pg MCHC (31.0-37.0) g/dL RDW (11.5-15.5) % Plt Count (150-450) k/uL Neutrophils % % Lymphocytes % % Monocytes % % Eosinophils % % Basophils % % Neutrophils # (1.3-7.7) k/uL Lymphocytes # (1.0-4.8) k/uL Monocytes # (0-1.0) k/uL Eosinophils # (0-0.7) k/uL Basophils # (0-0.2) k/uL Hypochromasia Anisocytosis Macrocytosis PT 10.0 (9.0-12.0) sec INR 1.0 (<1.2) APTT 22.3 (22.0-30.0) sec Sodium (137-145) mmol/L Potassium (3.5-5.1) mmol/L Chloride (98-107) mmol/L Carbon Dioxide (22-30) mmol/L Anion Gap mmol/L BUN (9-20) mg/dL Creatinine (0.66-1.25) mg/dL Est GFR (MDRD) Af Amer (>60 ml/min/1.73 sqM) Est GFR (MDRD) Non-Af (>60 ml/min/1.73 sqM) Glucose (74-99) mg/dL Plasma Lactic Acid [place] 1.2 (0.7-2.0) mmol/L Calcium (8.4-10.2) mg/dL Phosphorus (2.5-4.5) mg/dL Magnesium (1.6-2.3) mg/dL Total Bilirubin (0.2-1.3) mg/dL AST (17-59) U/L ALT (21-72) U/L Alkaline Phosphatase (38-126) U/L Total Creatine Kinase (55-170) U/L CK-MB (CK-2) (0.0-2.4) ng/mL CK-MB (CK-2) Rel Index Troponin I (0.000-0.034) ng/mL Total Protein (6.3-8.2) g/dL Albumin (3.5-5.0) g/dL Urine Color Urine Appearance (Clear) Urine pH (5.0-8.0) Ur Specific [place] (1.001-1.035) Urine Protein (Negative) Urine Glucose (UA) (Negative) Urine Ketones (Negative) Urine Blood (Negative) Urine Nitrite (Negative) Urine Bilirubin (Negative) Urine Urobilinogen (<2.0) mg/dL Ur Leukocyte Esterase (Negative) Urine WBC (0-5) /hpf Urine WBC Clumps (None) /hpf Urine Bacteria (None) /hpf Influenza Type A RNA Not Detected (Not Detectd) Influenza Type B (PCR) Not Detected (Not Detectd) 05/16/17 Range/Units 00:07 WBC (3.8-10.6) k/uL RBC (4.30-5.90) m/uL Hgb (13.0-17.5) gm/dL Hct (39.0-53.0) % MCV (80.0-100.0) fL MCH (25.0-35.0) pg MCHC (31.0-37.0) g/dL RDW (11.5-15.5) % Plt Count (150-450) k/uL Neutrophils % % Lymphocytes % % Monocytes % % Eosinophils % % Basophils % % Neutrophils # (1.3-7.7) k/uL Lymphocytes # (1.0-4.8) k/uL Monocytes # (0-1.0) k/uL Eosinophils # (0-0.7) k/uL Basophils # (0-0.2) k/uL Hypochromasia Anisocytosis Macrocytosis PT (9.0-12.0) sec INR (<1.2) APTT (22.0-30.0) sec Sodium (137-145) mmol/L Potassium (3.5-5.1) mmol/L Chloride (98-107) mmol/L Carbon Dioxide (22-30) mmol/L Anion Gap mmol/L BUN (9-20) mg/dL Creatinine (0.66-1.25) mg/dL Est GFR (MDRD) Af Amer (>60 ml/min/1.73 sqM) Est GFR (MDRD) Non-Af (>60 ml/min/1.73 sqM) Glucose (74-99) mg/dL Plasma Lactic Acid [place] (0.7-2.0) mmol/L Calcium (8.4-10.2) mg/dL Phosphorus (2.5-4.5) mg/dL Magnesium (1.6-2.3) mg/dL Total Bilirubin (0.2-1.3) mg/dL AST (17-59) U/L ALT (21-72) U/L Alkaline Phosphatase (38-126) U/L Total Creatine Kinase (55-170) U/L CK-MB (CK-2) (0.0-2.4) ng/mL CK-MB (CK-2) Rel Index Troponin I (0.000-0.034) ng/mL Total Protein (6.3-8.2) g/dL Albumin (3.5-5.0) g/dL Urine Color Yellow Urine Appearance Cloudy (Clear) Urine pH 6.0 (5.0-8.0) Ur Specific [place] 1.011 (1.001-1.035) Urine Protein 3+ H (Negative) Urine Glucose (UA) Negative (Negative) Urine Ketones Negative (Negative) Urine Blood Small H (Negative) Urine Nitrite Negative (Negative) Urine Bilirubin Negative (Negative) Urine Urobilinogen <2.0 (<2.0) mg/dL Ur Leukocyte Esterase Small H (Negative) Urine WBC 44 H (0-5) /hpf Urine WBC Clumps Few H (None) /hpf Urine Bacteria Many H (None) /hpf Influenza Type A RNA (Not Detectd) Influenza Type B (PCR) (Not Detectd) - Radiology Data Radiology results: report reviewed (Chest x-rays negative), image reviewed Disposition Clinical Impression: UTI (urinary tract infection), Sepsis, ARF (acute renal failure), Uremia, Dehydration Narrative: h/o C Diff w Fecal Transplant Disposition: ADMITTED IP TO THIS [facility] Condition: Serious Referrals: Clay Hall DO [Primary Care Provider] - 1-2 days
[2017-05-16 00:08] LABS: Anisocytosis Slight; Basophils % (A) 0 %; Eosinophils # (A) 0.1 k/uL (0-0.7); Eosinophils % (A) 1 %; HCT 33.8 % (39.0-53.0); HGB 10.5 gm/dL (13.0-17.5); Hypochromasia Slight; Lymphocytes # (A) 0.3 k/uL (1.0-4.8); Lymphocytes % (A) 2 %; MCHC 31.2 g/dL (31.0-37.0); MCV 99.4 fL (80.0-100.0); Macrocytosis Slight; Mean Platelet Volume 7.8; Monocytes # (A) 0.6 k/uL (0-1.0); Monocytes % (A) 3 %; Neutrophils # (A) 15.9 k/uL (1.3-7.7); Neutrophils % (A) 94 %; Platelet Count 182 k/uL (150-450); RDW 16.4 % (11.5-15.5)
[2017-05-16 00:15] LABS: Partial Thromboplastin Time 22.3 sec (22.0-30.0)
[2017-05-16 00:18] LABS: Albumin 2.8 g/dL (3.5-5.0); Calcium 8.7 mg/dL (8.4-10.2); Magnesium 1.5 mg/dL (1.6-2.3); Phosphorus 4.7 mg/dL (2.5-4.5); Total Bilirubin 0.4 mg/dL (0.2-1.3); Total Protein 6.1 g/dL (6.3-8.2)
[2017-05-16 00:26] LABS: Appearance,Urine Cloudy (Clear); Bacteria,Urine Many /hpf; Bilirubin,Urine Negative (Negative); Blood,Urine Small (Negative); Color,Urine Yellow; Glucose,Urine (UA) Negative (Negative); Ketones,Urine Negative (Negative); Leukocyte Esterase,Urine Small (Negative); Nitrite,Urine Negative (Negative); Protein,Urine 3+ (Negative); Specific Gravity,Urine 1.011 (1.001-1.035); Urobilinogen,Urine <2.0 mg/dL (<2.0); WBC,Urine 44 /hpf (0-5)
--- NOTE | 2017-05-16 00:36 | XR ---
EXAMINATION TYPE: XR chest 1V portable DATE OF EXAM: 05/16/2017 COMPARISON: 11/02/2016 HISTORY: Weakness TECHNIQUE: Single frontal view of the chest is obtained. FINDINGS: There is perivascular congestion. Heart appears enlarged. There is slight blunting of cost ophrenic angles. There is cervical spine fusion surgery. There are chest leads. IMPRESSION: Mild congestive heart failure without change compared to last exam. Bilateral pleural ef fusions.
[2017-05-16 00:44] LABS: Creatine Kinase MB 1.2 ng/mL (0.0-2.4)
[2017-05-16 00:45] LABS: Potassium 4.3 mmol/L (3.5-5.1)
[2017-05-16 00:47] LABS: Troponin I 0.064 ng/mL (0.000-0.034)
[2017-05-16] MEDS ORDERED: AMPICILLIN-SULBACTAM 3 GM in SODIUM CHLORIDE 0.9% 100 ML IVPB ONE (01:00)
[2017-05-16 03:05] VITALS: BMI 34.9
[2017-05-16] MEDS ORDERED: traMADol 50 MG TAB PO PRN (08:35)
[2017-05-16] MEDS ORDERED: NON-FORMULARY DRUG (Omega-3 Fatty Acids/Fish Oil [Fish Oil 1,000 Mg Softgel] 1 CAP) PO SCH (09:00)
[2017-05-16] MEDS ORDERED: LISINOPRIL 10 MG TAB PO SCH (09:00)
--- NOTE | 2017-05-16 09:38 | P.CRDCN ---
History of Present Illness Consult date: 05/16/17 Requesting physician: Luther Bailey Reason for Consult (text): Abnormal troponin Chief complaint: Weakness and mental status changes History of present illness: This is a 77-year-old gentleman with known history of hyperlipidemia, hypertension, chronic renal failure, prior CVA, chronic persistent atrial fibrillation. Patient was brought to the hospital, his was concerned about him looking very sick lately, he also was noted to have some mental status changes. EKG on arrival here showed atrial fibrillation with a moderately rapid ventricular response. Chest x-ray reveals mild congestive heart failure with small bilateral pleural effusions. Temperature on arrival 102.6, blood pressure 147/90, heart rate in the 90s, 88% on room air. Blood pressure this morning 96/50, 93% on room air. White blood cell count on admission 17, hemoglobin 10.5, platelet count 182. Sodium 138, potassium 4.3, BUN 111, creatinine 2.6. A mag level I.5. Troponin 0.064. Influenza A and B- . Urinalysis revealed mild UTI. Cardiology consultation was requested because of abnormal troponin as well as atrial fibrillation with a rapid ventricular response. At the time of my examination this morning, patient is quite sleepy, denies chest pain, denies shortness of breath, does state he has an occasional cough. Past Medical History Past Medical History: Atrial Fibrillation, Cancer, Heart Failure, Hearing Disorder / Deafness, Hyperlipidemia, Hypertension, Musculoskeletal Disorder, Renal Disease Additional Past Medical History / Comment(s): HX C-DIFF 09-04-16. skin ca. psoriatic arthritis. uti, nephrotic syndrome. chronic back pain. DENIES GOUT. PAST HX OF MIGRAINES. HX anemia,iron infusion. patient states he is pre- diabetic. EDEMA .edward torn rotator cuffs(had a previous sx on rt side but injured it again). A-Fib diagnosis March 2017; pt. responded to oral medication. skin cancer on head History of Any Multi-Drug Resistant Organisms: None Reported Past Surgical History: Back Surgery, Hernia Repair, Orthopedic Surgery Additional Past Surgical History / Comment(s): L4-5 LUMBAR FUSION-(total of 4 back surguries)NECK FUSION. RT ROTATOR CUFF," kidney bx-neg". Surgical scar from skin cancer/surgery on right side of head. MULT PAIN PROC, LAST 05/12/16. Fecal transfusion at [facility] for C-Diff in November 2016 Past Anesthesia/Blood Transfusion Reactions: No Reported Reaction Past Psychological History: No Psychological Hx Reported Additional Psychological History / Comment(s): lives in the family home with his . 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 No experience. No international travel. No animal exposures. No ill contacts. Denies any significant tobacco or alcohol use. No recreational drug use. Smoking Status: Never smoker Smoking Status: Never smoker Past Alcohol Use History: None Reported Past Drug Use History: None Reported - Past Family History Father Additional Family Medical History / Comment(s): as a results of burn injuries in work related accident Mother Additional Family Medical History / Comment(s): at age 84 from heart problems Sister(s) Family Medical History: Cancer Additional Family Medical History / Comment(s): mother-- HTN. brother-- Diabetes, kidney problems Medications and Allergies Home Medications Medication Instructions Recorded Confirmed Type Ergocalciferol [Vitamin D2 50,000 units PO [place] 01/16/14 05/15/17 History (DRISDOL)] Leflunomide [Arava] 20 mg PO DAILY 01/16/14 05/15/17 History Ranitidine HCl [Zantac] 150 mg PO BID 01/16/14 05/15/17 History Sod Phos Di, [place]/K Phos [place] 250 mg PO BID 01/16/14 05/15/17 History [Phospha 250 Neutral Tablet] Tamsulosin HCl [Flomax] 0.4 mg PO BID 01/16/14 05/15/17 History Propranolol LA [Inderal LA] 60 mg PO DAILY 12/17/14 05/15/17 History predniSONE 10 mg PO DAILY 03/25/16 05/15/17 History Atorvastatin [Lipitor] 40 mg PO HS 04/18/16 05/15/17 History [place]-3 Fatty Acids/Fish Oil [Fish 1 cap PO DAILY 04/18/16 05/15/17 History Oil 1,000 mg Softgel] Tacrolimus [Prograf] 1 mg PO DAILY 08/19/16 05/15/17 History Apixaban [Eliquis] 2.5 mg PO BID #60 tablet 08/23/16 05/15/17 Rx Gabapentin [Neurontin] 600 mg PO BID 09/04/16 05/15/17 History Isosorbide Mononitrate ER [Imdur] 30 mg PO DAILY #1 tab 09/10/16 05/15/17 Rx Allopurinol [Zyloprim] 100 mg PO BID 10/26/16 05/15/17 History L.acidoph,Paracasei, B.lactis 1 cap PO DAILY 10/26/16 05/15/17 History [Probiotic] Metolazone [Zaroxolyn] 5 mg PO BID 10/26/16 05/15/17 History Multivitamins, Thera [Multivitamin 1 tab PO DAILY 10/26/16 05/15/17 History (formulary)] traMADol HCL [Ultram] 50 mg PO BID PRN 10/26/16 05/15/17 History Bumetanide [BUMEX] 2 mg PO BID 04/27/17 05/15/17 History Diltiazem HCl [Diltiazem 24Hr ER] 120 mg PO DAILY 04/27/17 05/15/17 History Potassium Chloride ER [K-Dur 20] 20 meq PO HS 04/27/17 05/15/17 History Prevalite Powder 5.5 gm PO DAILY 04/27/17 05/15/17 History Calcium Carbonate/Vitamin D3 1 tab PO DAILY 05/15/17 05/15/17 History [Calcium 600-Vit D3 200 Tablet] Enalapril [Vasotec] 5 mg PO DAILY 05/15/17 05/15/17 History Allergies Allergy/AdvReac Type Severity Reaction Status Date / Time sumatriptan [From Imitrex] Allergy Swelling Verified 05/15/17 23:36 sumatriptan succinate Allergy Swelling Verified 05/15/17 23:36 [From Imitrex] cephalexin [From Keflex] AdvReac Diarrhea Verified 05/15/17 23:36 Physical Exam Vitals: Vital Signs Temp Pulse Pulse Pulse Resp BP BP 05/16/17 05:26 97.6 F 87 20 96/52 05/16/17 02:23 99.2 F 84 18 105/69 05/16/17 01:01 101.5 F H 95 20 113/73 05/16/17 00:17 97 20 151/77 05/15/17 23:05 102.6 F H 129 H 20 147/95 Pulse Ox 05/16/17 05:26 93 L 05/16/17 02:23 96 05/16/17 01:01 96 05/16/17 00:17 92 L 05/15/17 23:05 88 L Intake and Output 05/15/17 05/16/17 05/16/17 22:59 06:59 14:59 Intake Total 360 Balance 360 Intake: Oral 360 Other: # Voids 0 Weight 99 kg PHYSICAL EXAMINATION: HEENT: [Head is atraumatic, normocephalic. Pupils equal, round. Neck is supple. There is no elevated jugular venous pressure.] HEART EXAMINATION: Heart S1 and S2 irregularly irregular a systolic murmur is heard. CHEST EXAMINATION: Lungs reveal crackles bilaterally to the bases with mild diminished air entry ABDOMEN: [ Soft, obese, nontender. Bowel sounds are heard. No organomegaly noted ]. EXTREMITIES:[ 2+ peripheral pulses with 1+ evidence of peripheral edema and mild redness noted to bilateral lower extremity, NEUROLOGIC [patient is sleepy, somewhat difficult to arouse Results 05/15/17 23:10 05/15/17 23:10 Cardiac Enzymes 05/15/17 05/15/17 Range/Units 23:10 23:10 AST 34 (17-59) U/L CK-MB (CK-2) 1.2 (0.0-2.4) ng/mL Troponin I 0.064 H* (0.000-0.034) ng/mL Coagulation 05/15/17 Range/Units 23:10 PT 10.0 (9.0-12.0) sec APTT 22.3 (22.0-30.0) sec CBC 05/15/17 Range/Units 23:10 WBC 17.0 H (3.8-10.6) k/uL RBC 3.40 L (4.30-5.90) m/uL Hgb 10.5 L (13.0-17.5) gm/dL Hct 33.8 L (39.0-53.0) % Plt Count 182 (150-450) k/uL Comprehensive Metabolic Panel 05/15/17 Range/Units 23:10 Sodium 138 (137-145) mmol/L Potassium 4.3 (3.5-5.1) mmol/L Chloride 98 (98-107) mmol/L Carbon Dioxide 31 H (22-30) mmol/L BUN 111 H* (9-20) mg/dL Creatinine 2.60 H (0.66-1.25) mg/dL Glucose 130 H (74-99) mg/dL Calcium 8.7 (8.4-10.2) mg/dL AST 34 (17-59) U/L ALT 35 (21-72) U/L Alkaline Phosphatase 97 (38-126) U/L Total Protein 6.1 L (6.3-8.2) g/dL Albumin 2.8 L (3.5-5.0) g/dL Current Medications Generic Name Dose Route Start Last Admin Trade Name Freq PRN Reason Stop Dose Admin Allopurinol 100 mg 05/16/17 09:00 Zyloprim PO BID [facility] Apixaban 2.5 mg 05/16/17 09:00 Eliquis PO BID [facility] Atorvastatin Calcium 40 mg 05/16/17 21:00 Lipitor PO HS [facility] Calcium Carbonate 1 each 05/16/17 09:00 Oscal 500+D PO DAILY [facility] Cholestyramine Resin 4 gm 05/16/17 18:00 Questran PO DAILY@1800 [facility] Diltiazem HCl 120 mg 05/16/17 09:00 Cardizem Cd PO DAILY [facility] Ergocalciferol 50,000 unit 05/22/17 12:00 Vitamin D2 PO Johnson@1200 [facility] Famotidine 20 mg 05/16/17 09:00 Pepcid PO BID [facility] Gabapentin 600 mg 05/16/17 09:00 Neurontin PO BID [facility] Sodium Chloride 1,000 mls @ 100 mls/hr 05/15/17 23:50 05/16/17 00:13 Saline 0.9% IV 05/16/17 09:49 100 mls/hr .Q10H STA Administration Ampicillin Sodium/Sulbactam 100 mls @ 100 mls/hr 05/16/17 08:00 Sodium 3 gm/ Sodium Chloride IVPB Q6H NEW Isosorbide Mononitrate 30 mg 05/16/17 09:00 Imdur PO DAILY [facility] Lactobacillus Acidoph/Bulgaricus 1 each 05/16/17 09:00 Lactinex PO DAILY [facility] Leflunomide 20 mg 05/16/17 09:00 Arava PO DAILY [facility] Lisinopril 10 mg 05/16/17 09:00 Zestril PO DAILY [facility] Metolazone 5 mg 05/16/17 09:00 Zaroxolyn PO BID@0900,1600 [facility] Multivitamins 1 each 05/16/17 12:00 Theragran PO DAILY@1200 [facility] Potassium Chloride 20 meq 05/16/17 21:00 K-Dur 20 PO HS NEW Propranolol HCl 60 mg 05/16/17 09:00 Inderal La PO DAILY NEW Tacrolimus 1 mg 05/16/17 09:00 Prograf PO DAILY NEW Tamsulosin HCl 0.4 mg 05/16/17 09:00 Flomax PO BID NEW Tramadol HCl 50 mg 05/16/17 08:35 Ultram PO BID PRN Pain Intake and Output 05/15/17 05/16/17 05/16/17 22:59 06:59 14:59 Intake Total 360 Balance 360 Intake: Oral 360 Other: # Voids 0 Weight 99 kg 05/15/17 23:10 05/15/17 23:10 EKG Interpretations (text) EKG shows atrial fibrillation with a moderately rapid ventricular response Assessment and Plan Plan: Assessment and plan #1 symptoms of mental status change and weakness, likely secondary to sepsis. Temperature on arrival 102.7. Patient is currently on antibiotics. Flu swab was negative. White blood cell count 17.0 #2 atrial fibrillation with rapid ventricular response, patient has history of chronic persistent atrial fibrillation, on Eliquis for anticoagulation. IV Cardizem discontinued. Heart rate 80 this morning #3 acute on chronic renal failure, stage III #4 hypertension history # 5 borderline diabetes #6 hyperlipidemia #7 prior CVA #8 hypomagnesemia #9 chronic anemia #10 arthritis #11 abnormal troponin, likely secondary to abnormal renal function. On review of patient's prior admissions, troponins are consistently in this abnormal range. Plan We will obtain an echocardiogram with Doppler study. Continue Eliquis, Lipitor , Cardizem 120 mg daily, Imdur 30 mg daily, and Inderal 60 mg daily. Continue antibiotics. We will also request blood cultures be obtained. Further recommendations to follow. DNP note has been reviewed, I agree with a documented findings and plan of care. Patient was seen and examined.
[2017-05-16] MEDS ORDERED: FUROSEMIDE 10 MG/ML 4 ML VIAL IV STA (10:37)
--- NOTE | 2017-05-16 10:44 | P.PN ---
Progress Note - Text this is an addendum to the dictated cardiology consultation. The patient has a known history of chronic persistent atrial fibrillation, chronic kidney disease who presents with change in mental status ,chills and was noted to be febrile on presentation. He denies any chest pain but he has worsening of his edema and no significant change in his breathing.He denies any dizziness, palpitations or syncope. he has a chronic cough, unchanged. He has been followed in the past by Dr. Bradford. His physical examination shows no significant rales or wheezes, he has an irregular irregular heartbeat, +2 edema bilaterally. The patient presents with change of mental status, fever and atrial fibrillation with RVR most likely worsened by the infectious process. I will continue the present medical regimen from the cardiac standpoint. Because of his worsening edema he will receive one dose of intravenous furosemide. We will follow his renal function closely. Depending on his progress further recommendations will be made. Thank you for this consult we will follow with you.
[2017-05-16] MEDS: CHOLESTYRAMINE (WITH SUGAR) 4 GM PACKET PO SCH (10:54)
[2017-05-16] MEDS: LACTOBACILLUS ACIDOPH & BULGAR 1 EACH PACKET PO SCH (10:54)
[2017-05-16] MEDS: TAMSULOSIN 0.4 MG CAP.ER.24H PO SCH ×2 (10:54→20:50)
[2017-05-16] MEDS: METOLAZONE 5 MG TAB PO SCH ×2 (10:54→18:11)
[2017-05-16] MEDS: MULTIVITAMINS, THERA 1 EACH TAB PO SCH (10:54)
[2017-05-16] MEDS: ISOSORBIDE MONONITRATE ER 30 MG TAB.ER.24H PO SCH (10:55)
[2017-05-16] MEDS: LEFLUNOMIDE 20 MG TAB PO SCH (10:55)
[2017-05-16] MEDS: PROPRANOLOL LA 60 MG CAP.SA.24H PO SCH (10:55)
[2017-05-16] MEDS: GABAPENTIN 300 MG CAP PO SCH ×2 (10:55→20:49)
[2017-05-16] MEDS: ALLOPURINOL 100 MG TAB PO SCH ×2 (10:55→20:50)
[2017-05-16] MEDS: TACROLIMUS 1 MG CAP PO SCH (10:55)
[2017-05-16] MEDS: APIXABAN 2.5 MG TABLET PO SCH ×2 (10:56→20:49)
[2017-05-16] MEDS: CALCIUM CARB-VIT D 500MG-200UN 1 EACH TAB PO SCH (10:56)
[2017-05-16] MEDS: FAMOTIDINE 20 MG TAB PO SCH ×2 (10:56→20:49)
[2017-05-16] MEDS: DILTIAZEM CD 120 MG CAP.ER.24H PO SCH (10:57)
[2017-05-16] MEDS: MAGNESIUM SULFATE-D5W PMX 1 GM in DEXTROSE/WATER 1 100ML.BAG IVPB SCH ×2 (11:02→13:19)
[2017-05-16] MEDS: predniSONE 10 MG TAB PO SCH (11:03)
--- NOTE | 2017-05-16 11:52 | P.CONS ---
History of Present Illness - Reason for Consult Consult date: 05/16/17 sepsis - History of Present Illness this is a 77-year-old male patient well-known to ID service with history of psoriatic arthritis on Arava and chronic kidney disease stage III secondary to biopsy-proven FSGS with baseline creatinine of 1.7 on Prograf and prednisone and follows at [facility], anemia of chronic disease and receives Procrit injection every Tuesday at [facility]. 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 Gill at [facility] on February 04. Patient apparently has not been feeling well for a week or more but did not want to be started on antibiotics. There was concern for urinary tract infection. Family state that he had altered mental status, fever and was not doing well with increased weakness at home and called EMS and patient was brought into [facility] emergency center. Chest x-ray shows mild heart failure without change from previous. Bilateral pleural effusions. Temperature 102.6, tachycardia, pulse ox 88%. Patient is not on home oxygen. White count was 17. Creatinine is 2.6, albumin 2.8. Urinalysis was cloudy, blood small, leukoesterase small, WBC 44, WBC clumps few. Influenza testing a and B were negative. Urine and blood cultures are status received. Patient was started on Unasyn and admitted to the selective care unit. Consults are in place for nephrology for acute kidney injury and cardiology for atrial fibrillation.patient does have chronic lower extremity edema which is increased recently. . Review of Systems All systems: negative Constitutional: Reports anorexia, Reports chills, Reports fatigue, Reports fever , Reports lethargy, Reports malaise, Reports poor appetite, Reports weakness Eyes: denies blurred vision, denies pain Ears, nose, mouth and throat: Denies dental pain, Denies headache, Denies mouth pain, Denies sore throat, Denies vertigo Cardiovascular: Reports leg edema, Denies chest pain, Denies lightheadedness, Denies shortness of breath, Denies syncope Respiratory: Denies cough, Denies cough with sputum, Denies dyspnea, Denies excessive sputum, Denies hemoptysis, Denies home oxygen Gastrointestinal: Reports loss of appetite, Denies abdominal pain, Denies diarrhea, Denies melena, Denies nausea, Denies vomiting Genitourinary: Denies dysuria Musculoskeletal: Reports low back pain, Denies myalgias Integumentary: Denies pruritus, Denies rash, Denies wounds Neurological: Reports change in mentation, Reports weakness, Denies numbness Psychiatric: Denies anxiety, Denies depression Endocrine: Denies fatigue, Denies weight change Past Medical History Past Medical History: Atrial Fibrillation, Cancer, Heart Failure, Hearing Disorder / Deafness, Hyperlipidemia, Hypertension, Musculoskeletal Disorder, Renal Disease Additional Past Medical History / Comment(s): HX C-DIFF 09-04-16. skin ca. psoriatic arthritis. uti, nephrotic syndrome. chronic back pain. DENIES GOUT. PAST HX OF MIGRAINES. HX anemia,iron infusion. patient states he is pre- diabetic. EDEMA .edward torn rotator cuffs(had a previous sx on rt side but injured it again). A-Fib diagnosis March 2017; pt. responded to oral medication. skin cancer on head History of Any Multi-Drug Resistant Organisms: None Reported Past Surgical History: Back Surgery, Hernia Repair, Orthopedic Surgery Additional Past Surgical History / Comment(s): L4-5 LUMBAR FUSION-(total of 4 back surguries)NECK FUSION. RT ROTATOR CUFF," kidney bx-neg". Surgical scar from skin cancer/surgery on right side of head. MULT PAIN PROC, LAST 05/12/16. Fecal transfusion at [facility] for C-Diff in November 2016 Past Anesthesia/Blood Transfusion Reactions: No Reported Reaction Past Psychological History: No Psychological Hx Reported Additional Psychological History / Comment(s): lives in the family home with his . 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 No experience. No international travel. No animal exposures. No ill contacts. Denies any significant tobacco or alcohol use. No recreational drug use. Smoking Status: Never smoker Smoking Status: Never smoker Past Alcohol Use History: None Reported Past Drug Use History: None Reported - Past Family History Father Additional Family Medical History / Comment(s): as a results of burn injuries in work related accident Mother Additional Family Medical History / Comment(s): at age 84 from heart problems Sister(s) Family Medical History: Cancer Additional Family Medical History / Comment(s): mother-- HTN. brother-- Diabetes, kidney problems Medications and Allergies Home Medications Medication Instructions Recorded Confirmed Type Ergocalciferol [Vitamin D2 50,000 units PO DEAL 01/16/14 05/15/17 History (DRISDOL)] Leflunomide [Arava] 20 mg PO DAILY 01/16/14 05/15/17 History Ranitidine HCl [Zantac] 150 mg PO BID 01/16/14 05/15/17 History Sod Phos Di, [place]/K Phos [place] 250 mg PO BID 01/16/14 05/15/17 History [Phospha 250 Neutral Tablet] Tamsulosin HCl [Flomax] 0.4 mg PO BID 01/16/14 05/15/17 History Propranolol LA [Inderal LA] 60 mg PO DAILY 12/17/14 05/15/17 History predniSONE 10 mg PO DAILY 03/25/16 05/15/17 History Atorvastatin [Lipitor] 40 mg PO HS 04/18/16 05/15/17 History [place]-3 Fatty Acids/Fish Oil [Fish 1 cap PO DAILY 04/18/16 05/15/17 History Oil 1,000 mg Softgel] Tacrolimus [Prograf] 1 mg PO DAILY 08/19/16 05/15/17 History Apixaban [Eliquis] 2.5 mg PO BID #60 tablet 08/23/16 05/15/17 Rx Gabapentin [Neurontin] 600 mg PO BID 09/04/16 05/15/17 History Isosorbide Mononitrate ER [Imdur] 30 mg PO DAILY #1 tab 09/10/16 05/15/17 Rx Allopurinol [Zyloprim] 100 mg PO BID 10/26/16 05/15/17 History L.acidoph,Paracasei, B.lactis 1 cap PO DAILY 10/26/16 05/15/17 History [Probiotic] Metolazone [Zaroxolyn] 5 mg PO BID 10/26/16 05/15/17 History Multivitamins, Thera [Multivitamin 1 tab PO DAILY 10/26/16 05/15/17 History (formulary)] traMADol HCL [Ultram] 50 mg PO BID PRN 10/26/16 05/15/17 History Bumetanide [BUMEX] 2 mg PO BID 04/27/17 05/15/17 History Diltiazem HCl [Diltiazem 24Hr ER] 120 mg PO DAILY 04/27/17 05/15/17 History Potassium Chloride ER [K-Dur 20] 20 meq PO HS 04/27/17 05/15/17 History Prevalite Powder 5.5 gm PO DAILY 04/27/17 05/15/17 History Calcium Carbonate/Vitamin D3 1 tab PO DAILY 05/15/17 05/15/17 History [Calcium 600-Vit D3 200 Tablet] Enalapril [Vasotec] 5 mg PO DAILY 05/15/17 05/15/17 History Allergies Allergy/AdvReac Type Severity Reaction Status Date / Time sumatriptan [From Imitrex] Allergy Swelling Verified 05/15/17 23:36 sumatriptan succinate Allergy Swelling Verified 05/15/17 23:36 [From Imitrex] cephalexin [From Keflex] AdvReac Diarrhea Verified 05/15/17 23:36 Physical Exam Vitals: Vital Signs Temp Pulse Pulse Pulse Resp BP BP 05/16/17 05:26 97.6 F 87 20 96/52 05/16/17 02:23 99.2 F 84 18 105/69 05/16/17 01:01 101.5 F H 95 20 113/73 05/16/17 00:17 97 20 151/77 05/15/17 23:05 102.6 F H 129 H 20 147/95 Pulse Ox 05/16/17 05:26 93 L 05/16/17 02:23 96 05/16/17 01:01 96 05/16/17 00:17 92 L 05/15/17 23:05 88 L Intake and Output 05/15/17 05/16/17 05/16/17 22:59 06:59 14:59 Intake Total 360 Balance 360 Intake: Oral 360 Other: # Voids 0 Weight 99 kg Gen: This is and OB 77-year-old male. He is sitting up in bed and appears to be comfortable. HEENT: Head is atraumatic, normocephalic. Pupils equal, round. Sclerae is anicteric. NECK: Supple. No JVD. No lymphadenopathy. No thyromegaly. LUNGS: bilateral crackles. No intercostal retractions. HEART: irregular rate and rhythm. systolic murmur. ABDOMEN: Soft. Bowel sounds are present. No masses. No tenderness. EXTREMITIES: 1+ bilateral pedal edemawith very mild erythema to the lower extremities.. No calf tenderness.dorsalis pedis +2 bilaterally. NEUROLOGICAL: Patient is awake, alert and oriented x3. patient can answer questions and follow directions appropriately but patient is somewhat sleepy and drowsy during examination. Results Results: Laboratory Results WBC 17.0 k/uL (3.8-10.6) H 05/15/17 23:10 RBC 3.40 m/uL (4.30-5.90) L 05/15/17 23:10 Hgb 10.5 gm/dL (13.0-17.5) L 05/15/17 23:10 Hct 33.8 % (39.0-53.0) L 05/15/17 23:10 MCV 99.4 fL (80.0-100.0) 05/15/17 23:10 MCH 31.0 pg (25.0-35.0) 05/15/17 23:10 MCHC 31.2 g/dL (31.0-37.0) 05/15/17 23:10 RDW 16.4 % (11.5-15.5) H 05/15/17 23:10 Plt Count 182 k/uL (150-450) 05/15/17 23:10 Neutrophils % 94 % 05/15/17 23:10 Lymphocytes % 2 % 05/15/17 23:10 Monocytes % 3 % 05/15/17 23:10 Eosinophils % 1 % 05/15/17 23:10 Basophils % 0 % 05/15/17 23:10 Neutrophils # 15.9 k/uL (1.3-7.7) H 05/15/17 23:10 Lymphocytes # 0.3 k/uL (1.0-4.8) L 05/15/17 23:10 Monocytes # 0.6 k/uL (0-1.0) 05/15/17 23:10 Eosinophils # 0.1 k/uL (0-0.7) 05/15/17 23:10 Basophils # 0.0 k/uL (0-0.2) 05/15/17 23:10 Hypochromasia Slight 05/15/17 23:10 Anisocytosis Slight 05/15/17 23:10 Macrocytosis Slight 05/15/17 23:10 PT 10.0 sec (9.0-12.0) 05/15/17 23:10 INR 1.0 (<1.2) 05/15/17 23:10 APTT 22.3 sec (22.0-30.0) 05/15/17 23:10 Sodium 138 mmol/L (137-145) 05/15/17 23:10 Potassium 4.3 mmol/L (3.5-5.1) 05/15/17 23:10 Chloride 98 mmol/L (98-107) 05/15/17 23:10 Carbon Dioxide 31 mmol/L (22-30) H 05/15/17 23:10 Anion Gap 9 mmol/L 05/15/17 23:10 BUN 111 mg/dL (9-20) H* 05/15/17 23:10 Creatinine 2.60 mg/dL (0.66-1.25) H 05/15/17 23:10 Est GFR (MDRD) Af Amer 29 (>60 ml/min/1.73 sqM) 05/15/17 23:10 Est GFR (MDRD) Non-Af 24 (>60 ml/min/1.73 sqM) 05/15/17 23:10 Glucose 130 mg/dL (74-99) H 05/15/17 23:10 Plasma Lactic Acid [place] 1.2 mmol/L (0.7-2.0) 05/15/17 23:10 Calcium 8.7 mg/dL (8.4-10.2) 05/15/17 23:10 Phosphorus 4.7 mg/dL (2.5-4.5) H 05/15/17 23:10 Magnesium 1.5 mg/dL (1.6-2.3) L 05/15/17 23:10 Total Bilirubin 0.4 mg/dL (0.2-1.3) 05/15/17 23:10 AST 34 U/L (17-59) 05/15/17 23:10 ALT 35 U/L (21-72) 05/15/17 23:10 Alkaline Phosphatase 97 U/L (38-126) 05/15/17 23:10 Total Creatine Kinase 52 U/L (55-170) L 05/15/17 23:10 CK-MB (CK-2) 1.2 ng/mL (0.0-2.4) 05/15/17 23:10 CK-MB (CK-2) Rel Index 2.3 05/15/17 23:10 Troponin I 0.064 ng/mL (0.000-0.034) H* 05/15/17 23:10 Total Protein 6.1 g/dL (6.3-8.2) L 05/15/17 23:10 Albumin 2.8 g/dL (3.5-5.0) L 05/15/17 23:10 Urine Color Yellow 05/16/17 00:07 Urine Appearance Cloudy (Clear) 05/16/17 00:07 Urine pH 6.0 (5.0-8.0) 05/16/17 00:07 Ur Specific [place] 1.011 (1.001-1.035) 05/16/17 00:07 Urine Protein 3+ (Negative) H 05/16/17 00:07 Urine Glucose (UA) Negative (Negative) 05/16/17 00:07 Urine Ketones Negative (Negative) 05/16/17 00:07 Urine Blood Small (Negative) H 05/16/17 00:07 Urine Nitrite Negative (Negative) 05/16/17 00:07 Urine Bilirubin Negative (Negative) 05/16/17 00:07 Urine Urobilinogen <2.0 mg/dL (<2.0) 05/16/17 00:07 Ur Leukocyte Esterase Small (Negative) H 05/16/17 00:07 Urine WBC 44 /hpf (0-5) H 05/16/17 00:07 Urine WBC Clumps Few /hpf (None) H 05/16/17 00:07 Urine Bacteria Many /hpf (None) H 05/16/17 00:07 Influenza Type A RNA Not Detected (Not Detectd) 05/15/17 23:10 Influenza Type B (PCR) Not Detected (Not Detectd) 05/15/17 23:10 CBC & Chem 7: 05/15/17 23:10 05/15/17 23:10 Labs: Abnormal Lab Results - Last 24 Hours (Table) 05/15/17 05/15/17 05/15/17 Range/Units 23:10 23:10 23:10 WBC 17.0 H (3.8-10.6) k/uL RBC 3.40 L (4.30-5.90) m/uL Hgb 10.5 L (13.0-17.5) gm/dL Hct 33.8 L (39.0-53.0) % RDW 16.4 H (11.5-15.5) % Neutrophils # 15.9 H (1.3-7.7) k/uL Lymphocytes # 0.3 L (1.0-4.8) k/uL Carbon Dioxide 31 H (22-30) mmol/L BUN 111 H* (9-20) mg/dL Creatinine 2.60 H (0.66-1.25) mg/dL Glucose 130 H (74-99) mg/dL Phosphorus 4.7 H (2.5-4.5) mg/dL Magnesium 1.5 L (1.6-2.3) mg/dL Total Creatine Kinase 52 L (55-170) U/L Troponin I 0.064 H* (0.000-0.034) ng/mL Total Protein 6.1 L (6.3-8.2) g/dL Albumin 2.8 L (3.5-5.0) g/dL Urine Protein (Negative) Urine Blood (Negative) Ur Leukocyte Esterase (Negative) Urine WBC (0-5) /hpf Urine WBC Clumps (None) /hpf Urine Bacteria (None) /hpf 05/16/17 Range/Units 00:07 WBC (3.8-10.6) k/uL RBC (4.30-5.90) m/uL Hgb (13.0-17.5) gm/dL Hct (39.0-53.0) % RDW (11.5-15.5) % Neutrophils # (1.3-7.7) k/uL Lymphocytes # (1.0-4.8) k/uL Carbon Dioxide (22-30) mmol/L BUN (9-20) mg/dL Creatinine (0.66-1.25) mg/dL Glucose (74-99) mg/dL Phosphorus (2.5-4.5) mg/dL Magnesium (1.6-2.3) mg/dL Total Creatine Kinase (55-170) U/L Troponin I (0.000-0.034) ng/mL Total Protein (6.3-8.2) g/dL Albumin (3.5-5.0) g/dL Urine Protein 3+ H (Negative) Urine Blood Small H (Negative) Ur Leukocyte Esterase Small H (Negative) Urine WBC 44 H (0-5) /hpf Urine WBC Clumps Few H (None) /hpf Urine Bacteria Many H (None) /hpf Assessment and Plan Plan: his is a 77-year-old male who presents to hospital with signs of sepsispossibly due to urinary tract infection, metabolic encephalopathy, atrial fibrillation with RVR with history of chronic persistent atrial fibrillation, acute kidney injury. Patient is currently on Unasyn.blood and urine cultures are status received. continue supportive care. Further recommendations as patient progresses. The above dictated assessment and findings were discussed with Dr. Kwok. The impression and plan of care have been directed as dictated. Ivory Cano nurse practitioner acting as scribe for Dr. Kwok.
[2017-05-16] MEDS: AMPICILLIN-SULBACTAM 3 GM in SODIUM CHLORIDE 0.9% 100 ML IVPB SCH ×3 (13:19→20:52)
--- NOTE | 2017-05-16 17:27 | ECHOF ---
Referral Reason:abn trop MEASUREMENTS -------- HEIGHT: 172.7 cm WEIGHT: 98.9 kg BP: 96/52 IVSd: 1.4 cm (0.6 - 1.1) LVIDd: 4.1 cm (3.9 - 5.3) LVPWd: 1.1 cm (0.6 - 1.1) IVSs: 1.6 cm LVIDs: 3.3 cm LVPWs: 1.3 cm LAESV Index (A-L): 60.44 ml/m MV E Kade: 0.58 m/s MV DecT: 279 ms MV A Kade: 0.80 m/s MV E/A Ratio: 0.73 RAP: 5.00 mmHg RVSP: 17.23 mmHg FINDINGS -------- Sinus rhythm with extra systolic beats. This was a technically difficult study with suboptimal views. The left ventricular size is normal. There is mild concentric left ventricular hypertrophy. There is moderate global hypokinesis of LV . Overall left ventricular systolic function is moderate-cass rely impaired with, an EF between 30 - 35 %. The RV was not well visualized. LA is severely dilated >40 ml/m2 The right atrium was not well visualized. 1.5mg of Definity was utilized for enhancement of images There is mild aortic valve sclerosis. There is no evidence of aortic regurgitation. There is no e vidence of aortic stenosis. Mild mitral annular calcification present. There is trace to mild mitral regurgitation. Trace tricuspid regurgitation present. Right ventricular systolic pressure is normal at < 35 mmHg. There is no evidence of pulmonary hypertension. The pulmonic valve was not well visualized. The aortic root size is normal. The inferior vena cava is mildly dilated. The pericardium is normal. There is no pericardial effusion. CONCLUSIONS -------- 1. Sinus rhythm with extra systolic beats. 2. This was a technically difficult study with suboptimal views. 3. The left ventricular size is normal. 4. There is mild concentric left ventricular hypertrophy. 5. There is moderate global hypokinesis of LV . 6. Overall left ventricular systolic function is moderate-severely impaired with, an EF between 30 - 35 %. 7. The RV was not well visualized. 8. LA is severely dilated >40 ml/m2 9. The right atrium was not well visualized. 10. 1.5mg of Definity was utilized for enhancement of images 11. There is mild aortic valve sclerosis. 12. Mild mitral annular calcification present. 13. There is trace to mild mitral regurgitation. 14. Trace tricuspid regurgitation present. 15. Right ventricular systolic pressure is normal at < 35 mmHg. 16. There is no evidence of pulmonary hypertension. 17. The pulmonic valve was not well visualized. 18. The aortic root size is normal. 19. The inferior vena cava is mildly dilated. 20. There is no pericardial effusion. RN ADVICE: Chavez Alonzo RDCS
[2017-05-16] MEDS: FLORASTOR 250 MG PO SCH (19:19)
[2017-05-16] MEDS: ATORVASTATIN 40 MG TAB PO SCH (20:49)
[2017-05-16] MEDS: POTASSIUM CHLORIDE ER 20 MEQ TAB.ER PO SCH (20:50)
--- NOTE | 2017-05-16 21:16 | P.CON ---
Consult Note - . Consult date: 05/16/17 Assessment/Plan:: this is a 77-year-old male patient well-known to ID service with history of psoriatic arthritis on Arava and chronic kidney disease stage III secondary to biopsy-proven FSGS with baseline creatinine of 1.7 on Prograf and prednisone and follows at [facility], anemia of chronic disease and receives Procrit injection every Tuesday at [facility]. 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 Gill at [facility] on February 04. Patient apparently has not been feeling well for a week or more but did not want to be started on antibiotics. There was concern for urinary tract infection. Family state that he had altered mental status, fever and was not doing well with increased weakness at home and called EMS and patient was brought into [facility] emergency center. Chest x-ray shows mild heart failure without change from previous. Bilateral pleural effusions. Temperature 102.6, tachycardia, pulse ox 88%. Patient is not on home oxygen. White count was 17. Creatinine is 2.6, albumin 2.8. Urinalysis was cloudy, blood small, leukoesterase small, WBC 44, WBC clumps few. Influenza testing a and B were negative. Urine and blood cultures are status received. Patient was started on Unasyn and admitted to the selective care unit. Consults are in place for nephrology for acute kidney injury and cardiology for atrial fibrillation.patient does have chronic lower extremity edema which is increased recently. Please see the consult note is dictated by nurse practitioner Ivory Underwoodmaria. 77-year-old gentleman who is quite debilitated from his rheumatoid arthritis had a sudden onset of high-grade fever with alteration of his mental status. Mental status is now improving as his fever is improved. At admission there was a markedly abnormal urinalysis and urine culture currently is pending awaiting the final results. With his history of C. diff colitis and fecal transplantation and overall goal is to limit antimicrobial therapy as much as possible. The patient presents with sepsis with high-grade fever leukocytosis and evidence of pyuria. Patient is now feeling better with hydration and antibiotic therapy in the form of Unasyn. This is been chosen because of the prior Enterococcus faecalis isolate from his urine. Once urine cultures available within try to streamline antibiotic therapy as much as possible. The patient may continue with his Florastor as well as probiotic especially while he is in antibiotic therapy. He does eat yogurt also throughout the day. Currently no diarrhea. Patient and are well aware of his risk of redeveloping CDIFF however with his sepsis required current intervention. Evaluation, assessment and plan as dictated by nurse practitioner Mrs. Ivory Cano.
--- NOTE | 2017-05-16 21:43 | HP ---
HISTORY AND PHYSICAL DATE OF ADMISSION: 05/16/2017 PRESENTING COMPLAINT: Shaking, mental status changes. HISTORY OF PRESENTING COMPLAINT: This is a pleasant 77-year-old patient with a rather extensive medical history. Chronic stable medical conditions include hypertension, osteoarthritis, chronic kidney disease, nephrotic syndrome, underlying focal FSGS, congestive heart failure. Patient has a walker. He was brought in by his . The patient became confused for about one day, was having some shaking, increasing back pain, decreased appetite, rundown; hence patient was brought in. The patient had a fever of 102.6 and a heart rate of 129; hence was felt to be septic. Most of the history is obtained from his at the bedside. REVIEW OF SYSTEMS: CONSTITUTIONAL: Tired. Febrile. Decreased appetite. HEENT: Decreased hearing. RESPIRATORY: None. CARDIOVASCULAR: None. GASTROINTESTINAL: None. GENITOURINARY: No urinary frequency. DERMATOLOGICAL: None. LYMPHATICS: None. PSYCHIATRY: A bit forgetful and delirious. NEUROLOGICAL: None. PAST MEDICAL HISTORY: 1. Atrial fibrillation. 2. Congestive heart failure. 3. Hearing disorder. 4. Hyperlipidemia. 5. Hypertension. 6. Kidney disease. 7. C difficile. 8. Skin cancer. 9. Psoriatic arthritis. 10.Nephrotic syndrome. 11.Chronic back pain. 12.Bilateral rotator cuffs are torn. PAST SURGICAL HISTORY: 1. Back surgery. 2. Hernia repair. 3. L4-L5 lumbar fusion. 4. Neck fusion. 5. Right rotator cuff surgery. 6. Multiple pain procedures. 7. Fecal transplantation in November of 2016. SOCIAL HISTORY: . Lives with his . 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 Never smoked. Alcohol none. FAMILY HISTORY: Mother had hypertension. Brother had diabetes and kidney problems. HOME MEDICATIONS: 1. Ultram 50 mg p.o. b.i.d. p.r.n. 2. Prednisone 10 mg a day. 3. Flomax 0.4 mg b.i.d. 4. Prograf 1 mg p.o. daily. 5. Phospha Neutral tablets 250 mg b.i.d. 6. Zantac 150 mg b.i.d. 7. Inderal LA 60 mg p.o. daily. 8. Prevalite 0.5 gram p.o. daily. 9. Potassium 20 mEq p.o. daily. 10.Fish oil 1000 mg 1 capsule p.o. daily. 11.Multivitamin 1 tablet p.o. daily. 12.Zaroxolyn 5 mg p.o. b.i.d. 13.Arava 20 mg p.o. daily. 14.Probiotic 1 capsule p.o. daily. 15.Imdur ER 30 mg p.o. daily. 16.Neurontin 600 mg p.o. b.i.d. 17.Vitamin D2 50,000 units on Tuesday. 18.Vasotec 5 mg p.o. daily. 19.Cardizem ER 120 mg p.o. daily. 20.Calcium 1 tablet p.o. daily. 21.Bumex 2 mg p.o. b.i.d. 22.Lipitor 40 mg p.o. at bedtime. 23.Eliquis 2.5 p.o. b.i.d. 24.Allopurinol 100 mg p.o. b.i.d. ALLERGIES: 1. IMITREX. 2. KEFLEX. PHYSICAL EXAMINATION: VITAL SIGNS ON PRESENTATION: Temperature 102.6, pulse 129, respiration 20, blood pressure 147/95, pulse ox 88% on room air. GENERAL APPEARANCE: Well built; BMI 33.2. Lying in bed, tired-appearing. EYES: Pupils equal. Conjunctivae normal. HEENT: Oral cavity dry. NECK: Short, thick. JVD unable to assess. RESPIRATORY: Effort normal. LUNGS: Diminished breath sounds. CARDIOVASCULAR: First and second sounds normal. No edema. ABDOMEN: Soft, nontender. Liver and spleen not palpable. LYMPHATIC: No lymph node palpable in neck or axillae. PSYCHIATRY: The patient is slow to answer but able to answer simple questions. NEUROLOGICAL: Pupils equal. No facial asymmetry. Moving all 4 limbs. MUSCULOSKELETAL: Evidence of severe arthritic disfigurement, especially in the hands. INVESTIGATIONS: White count 17, hemoglobin 10.5, potassium 4.3, BUN 111, creatinine 2.6. Influenza negative. Chest x-ray shows some enlargement. UA shows some WBC, leukocyte esterase. ASSESSMENT: 1. Acute severe urinary tract infection with sepsis causing acute delirium on presentation. 2. Troponin leak from hemodynamic mismatch; not acute myocardial infarction; from underlying sepsis. 3. Possible persistent atrial fibrillation. 4. Chronic congestive heart failure from systolic dysfunction, ejection fraction 30% to 35%. 5. Chronic hard of hearing. 6. Hyperlipidemia. 7. Essential hypertension. 8. Chronic kidney disease, FSGS. 9. Chronic psoriatic arthritis. 10.Chronic nephrotic syndrome. 11.Bilateral torn rotator cuffs. PLAN: Patient is on IV Unasyn. Home medications are resumed. Will put the patient on stress dose of steroids. Nephrology will be consulted. Infectious Disease. Care was discussed at length with the patient and his at the bedside. Questions were answered. MMODL / IJN: [id number] /
--- NOTE | 2017-05-17 05:49 | CONS ---
CONSULTATION REASON FOR CONSULT: Renal failure. HISTORY OF PRESENT ILLNESS: The patient is a 77-year-old male with history of chronic kidney disease NKF stage IV, secondary to FSGS, maintained on Prograf and prednisone as outpatient. The patient was admitted to the hospital with fever, chills. He also had mental status changes. His symptoms occurred fairly rapidly. The patient's believes he may have some discomfort while passing urine. 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 His UA does show WBCs at 44 with WBC clumps. Serum creatinine is at 2.6. Previous creatinine has been at about a 2.3 to 2.4 mg/dL. PAST MEDICAL HISTORY: Coronary artery disease, history of A. Fib, hyperlipidemia, hypertension, FSGS, osteoarthritis, psoriatic arthropathy. PAST SURGICAL HISTORY: Back surgery, hernia repair, orthopedic surgery, rotator cuff surgery, a fecal transplant. SOCIAL HISTORY: Negative for smoking, drug abuse or alcohol abuse. MEDICATIONS: Medications at home prior to admission included Drisdol, Arava, Zantac, Flomax, Inderal, Lipitor, Prograf, Eliquis, Neurontin, Imdur, Zyloprim, Zaroxolyn, Bumex, K- Dur, diltiazem, Vasotec. ALLERGIES: Allergies include IMITREX, KEFLEX. PHYSICAL EXAMINATION: On examination, patient is currently lying in bed. He is comfortable. He is awake. He is not in any acute distress. Alert and oriented x3. Blood pressure is 114/71, heart rate 73 per minute. He is afebrile. EXAMINATION OF THE HEART: S1, S2. EXAMINATION OF THE LUNGS: Bilateral breath sounds are heard. ABDOMEN: Soft, distended, obese, nontender. Examination of the lower extremity shows edema 2+ bilaterally. Some noted bilaterally. Chronic skin changes are noted. LABS: Labs show sodium 138, potassium 4.3, BUN 111, serum creatinine 2.6. Hemoglobin 10.5 g/dL. Phosphorus 4.7, magnesium 1.5. UA shows 44 WBCs with multiple WBC clumps. ASSESSMENT: 1. Chronic kidney disease secondary to FSGS, maintained on Prograf and prednisone. Renal function not far from baseline. However, there may be a component of acute kidney injury secondary to hypotension, hypoperfusion and sepsis. 2. Acute kidney injury secondary to hypotension, hypoperfusion. Will DC the RICK inhibitors for now. 3. Fever, most likely secondary to urinary tract infection. Currently status post Unasyn and awaiting urine cultures. 4. History of Clostridium difficile colitis, status post fecal transplant. 5. Lower extremity edema, chronic, maintained on Lasix and Zaroxolyn. 6. Atrial fibrillation with controlled ventricular response. Currently maintained on Cardizem and Eliquis. PLAN: DC the Zestril. May continue with diuretics for now. Continue empiric antibiotics. Follow up on the cultures. Repeat labs in a.m. Thank you for this consultation. Will continue to follow the patient with you during his hospitalization. MMODL / IJN: [id number] /
[2017-05-17 06:33] LABS: Calcium 8.2 mg/dL (8.4-10.2); Potassium 4.6 mmol/L (3.5-5.1)
[2017-05-17 06:35] LABS: Basophils % (A) 0 %; Eosinophils # (A) 0.2 k/uL (0-0.7); Eosinophils % (A) 2 %; HCT 28.3 % (39.0-53.0); Lymphocytes # (A) 0.5 k/uL (1.0-4.8); Lymphocytes % (A) 5 %; MCHC 30.5 g/dL (31.0-37.0); MCV 98.3 fL (80.0-100.0); Mean Platelet Volume 7.6; Monocytes # (A) 0.5 k/uL (0-1.0); Monocytes % (A) 5 %; Neutrophils # (A) 7.9 k/uL (1.3-7.7); Neutrophils % (A) 87 %; Platelet Count 174 k/uL (150-450); RBC 2.88 m/uL (4.30-5.90); RDW 14.8 % (11.5-15.5); WBC 9.1 k/uL (3.8-10.6)
[2017-05-17 06:37] LABS: HGB 8.6 gm/dL (13.0-17.5)
[2017-05-17] MEDS: AMPICILLIN-SULBACTAM 3 GM in SODIUM CHLORIDE 0.9% 100 ML IVPB SCH ×2 (08:45→20:57)
[2017-05-17] MEDS: CALCIUM CARB-VIT D 500MG-200UN 1 EACH TAB PO SCH (08:47)
[2017-05-17] MEDS: APIXABAN 2.5 MG TABLET PO SCH ×2 (08:47→20:57)
[2017-05-17] MEDS: DILTIAZEM CD 120 MG CAP.ER.24H PO SCH (08:48)
[2017-05-17] MEDS: GABAPENTIN 300 MG CAP PO SCH ×2 (08:48→20:57)
[2017-05-17] MEDS: FAMOTIDINE 20 MG TAB PO SCH (08:48)
[2017-05-17] MEDS: METOLAZONE 5 MG TAB PO SCH (08:49)
[2017-05-17] MEDS: LACTOBACILLUS ACIDOPH & BULGAR 1 EACH PACKET PO SCH (08:49)
[2017-05-17] MEDS: ISOSORBIDE MONONITRATE ER 30 MG TAB.ER.24H PO SCH (08:49)
[2017-05-17] MEDS: MULTIVITAMINS, THERA 1 EACH TAB PO SCH (08:50)
[2017-05-17] MEDS: FLORASTOR 250 MG PO SCH (08:50)
[2017-05-17] MEDS: TAMSULOSIN 0.4 MG CAP.ER.24H PO SCH ×2 (08:51→20:56)
[2017-05-17] MEDS: predniSONE 10 MG TAB PO SCH (08:51)
[2017-05-17] MEDS: PROPRANOLOL LA 60 MG CAP.SA.24H PO SCH (08:51)
[2017-05-17] MEDS: TACROLIMUS 1 MG CAP PO SCH (08:51)
[2017-05-17] MEDS: ALLOPURINOL 100 MG TAB PO SCH ×2 (09:04→20:57)
--- NOTE | 2017-05-17 15:54 | P.PN ---
Subjective Progress Note Date: 05/17/17 This is a 77-year-old gentleman with known history of hyperlipidemia, hypertension, chronic renal failure, prior CVA, chronic persistent atrial fibrillation. Patient was brought to the hospital, his was concerned about him looking very sick lately, he also was noted to have some mental status changes. EKG on arrival here showed atrial fibrillation with a moderately rapid ventricular response. Chest x-ray reveals mild congestive heart failure with small bilateral pleural effusions. Temperature on arrival 102.6, blood pressure 147/90, heart rate in the 90s, 88% on room air. Blood pressure this morning 96/50, 93% on room air. White blood cell count on admission 17, hemoglobin 10.5, platelet count 182. Sodium 138, potassium 4.3, BUN 111, creatinine 2.6. A mag level I.5. Troponin 0.064. Influenza A and B- . Urinalysis revealed mild UTI. Cardiology consultation was requested because of abnormal troponin as well as atrial fibrillation with a rapid ventricular response. At the time of my examination this morning, patient is quite sleepy, denies chest pain, denies shortness of breath, does state he has an occasional cough. 05/17/2017 there Patient seen and examined today, overall he states he is feeling much better. Hemoglobin down to 8.6, BUN 1:15, creatinine 2.7. He is remaining afebrile. She is to have peripheral edema however he is lying flat at the time of our examination with no shortness of breath. P Objective - Vital Signs Vital signs: Vital Signs Temp 97.3 F L 05/17/17 08:00 Pulse 76 05/17/17 12:00 Resp 16 05/17/17 14:41 BP 131/68 05/17/17 12:00 Pulse Ox 96 05/17/17 12:00 Intake & Output 05/16/17 05/17/17 05/17/17 18:59 06:59 18:59 Intake Total 840 960 Output Total 600 Balance 840 -600 960 Weight 101.5 kg Intake: Oral 840 960 Output: Urine 600 Other: Voiding Method Urinal Urinal # Voids 2 1 0 # Bowel Movements 0 - Exam PHYSICAL EXAMINATION: HEENT: [Head is atraumatic, normocephalic. Pupils equal, round. Neck is supple. There is no elevated jugular venous pressure.] HEART EXAMINATION: Heart S1 and S2 irregularly irregular a systolic murmur is heard. CHEST EXAMINATION: Lungs reveal crackles bilaterally to the bases with mild diminished air entry ABDOMEN: [ Soft, obese, nontender. Bowel sounds are heard. No organomegaly noted ]. EXTREMITIES:[ 2+ peripheral pulses with 1+ evidence of peripheral edema and mild redness noted to bilateral lower extremity, NEUROLOGIC [patient is sleepy, somewhat difficult to arouse - Labs CBC & Chem 7: 05/17/17 05:48 05/17/17 05:48 Labs: Abnormal Lab Results - Last 24 Hours (Table) 05/17/17 05/17/17 Range/Units 05:48 05:48 RBC 2.88 L (4.30-5.90) m/uL Hgb 8.6 L D (13.0-17.5) gm/dL Hct 28.3 L (39.0-53.0) % MCHC 30.5 L (31.0-37.0) g/dL Neutrophils # 7.9 H (1.3-7.7) k/uL Lymphocytes # 0.5 L (1.0-4.8) k/uL Carbon Dioxide 32 H (22-30) mmol/L BUN 115 H* (9-20) mg/dL Creatinine 2.79 H (0.66-1.25) mg/dL Calcium 8.2 L (8.4-10.2) mg/dL Microbiology - Last 24 Hours (Table) 05/16/17 11:04 Blood Culture - Preliminary Blood No Growth after 24 hours 05/16/17 00:07 Urine Culture - Preliminary Urine,Catheterized Gram Neg Bacilli 05/15/17 23:10 Blood Culture - Preliminary Blood No Growth after 24 hours Assessment and Plan Plan: Assessment and plan #1 symptoms of mental status change and weakness, likely secondary to sepsis. Temperature on arrival 102.7. Patient is currently on antibiotics. Flu swab was negative. White blood cell count 17.0 #2 atrial fibrillation with rapid ventricular response, patient has history of chronic persistent atrial fibrillation, on Eliquis for anticoagulation. IV Cardizem discontinued. Heart rate 80 this morning #3 acute on chronic renal failure, stage III #4 hypertension history # 5 borderline diabetes #6 hyperlipidemia #7 prior CVA #8 hypomagnesemia #9 chronic anemia #10 arthritis #11 abnormal troponin, likely secondary to abnormal renal function. On review of patient's prior admissions, troponins are consistently in this abnormal range. Plan Echocardiogram with Doppler study revealed an LV function of 30-35%.. Continue Eliquis, Lipitor, Imdur 30 mg daily, and Inderal 60 mg daily. Continue antibiotics. We will discontinue the Cardizem because of the reduced LV function. Blood pressure 96/50 today. DNP note has been reviewed, I agree with a documented findings and plan of care. Patient was seen and examined.
[2017-05-17] MEDS: CHOLESTYRAMINE (WITH SUGAR) 4 GM PACKET PO SCH (16:15)
--- NOTE | 2017-05-17 17:47 | P.PN ---
Progress Note - Text Progress Note Date: 05/17/17 DATE OF SERVICE: 05/17/2017 PRESENTING COMPLAINT: Shaking mental status changes HISTORY OF PRESENT ILLNESS: 77-year-old male who was brought in by his he became confused for about a day had some shaking and increased back pain decreased appetite rundown and was brought in found to have a fever of 102.6 and a heart rate of 129 felt to be septic. Admitted for the same. INTERVAL HISTORY: 05/17/2017: Patient lying in bed at the bedside, appears comfortable currently lying flat in bed. Afebrile, somewhat tired appearing but delirium has dissipated, no cough, up with assistance, tolerating his diet eating between 75% in the 100 % of his meals, last BM prior to admission. REVIEW OF SYSTEMS: Done for constitutional ,cardiovascular, GI, pulmonary with relevant findings as above. CURRENT MEDICATIONS Zyloprim, S1, Eliquis, Lipitor, Os-Claudio, Questran, Cardizem, vitamin D2, famotidine, gabapentin, Imdur, Lactinex, Theragran-M, potassium, prednisone, propranolol, Prograf, Flomax, Ultram. PHYSICAL EXAM VITAL SIGNS: Temperature 97.3, pulse 71, respiratory rate 16, blood pressure 121/66, oxygen saturation 97% on 2 L. GENERAL APPEARANCE: Lying in bed, appears comfortable HEENT: Normocephalic, Pupils equal. Conjunctiva normal. JVD not raised. Mass not palpable.: RESPIRATORY: Respiratory effort mildly increased. Lungs diminished to auscultation. CARDIOVASCULAR: First and second sounds normal. Mild edema . ABDOMEN: Soft. Liver and spleen not palpable. No tenderness. No mass palpable. PSYCHIATRY: Able to answer simple straightforward questions Mood and affect normal. MUSCULOSKELETAL: Evidence of severe arthritic disfigurement, especially in the bilateral hands. INVESTIGATIONS: LABS: Hemoglobin 8.6, carbon dioxide 32, BUN 1:15, creatinine 2.79, Urine culture positive for gram-negative bacilli, await sensitivities ASSESSMENT: -Acute severe urinary tract infection with sepsis causing acute delirium on presentation, improving -Troponin leak from hemodynamic mismatch, not acute myocardial infarction, from underlying sepsis., -Possible persistent atrial fibrillation. -Chronic congestive heart failure from systolic dysfunction, ejection fraction 30-35%. -Chronic hard of hearing. -Hyperlipidemia. -Essential hypertension. -Chronic kidney disease, FSGS. -Chronic nephrotic syndrome. -Bilateral torn rotator cuff. PLAN: Continue antibiotic therapy, urine culture positive for gram-negative bacilli we will continue to wait for sensitivities. Zestril discontinued, continue diuretics for now per nephrology. Cardiology continued Eliquis, Lipitor, Imdur , and Inderal and will DC Cardizem because of reduced LV function. Plan of care discussed with the patient and family at bedside in agreement we will follow closely. SPRAYER MACHINE statement: Patient was seen and examined by nurse practitioner Katy Boston and all elements of the case discussed with attending Dr. Bailey
[2017-05-17] MEDS ORDERED: DARBEPOETIN ALFA 40 MCG/0.4 ML SYRINGE SQ SCH (19:00)
--- NOTE | 2017-05-17 20:47 | PN ---
PROGRESS NOTE The patient is seen for followup for chronic kidney disease, who was admitted to the hospital with fever and mental status changes. He currently has a urinary tract infection and is maintained on Unasyn. He is currently feeling significantly better. The patient's blood pressure was low, therefore the RICK inhibitors were held and this morning he is comfortable lying in bed. Blood pressure is 131/68, heart rate 76 per minute. He is afebrile. Examination of the heart S1, S2. Examination of the lungs bilateral breath sounds are heard. Abdomen is soft, nontender, obese. Examination lower extremities shows edema 2+ bilaterally. exam is grossly intact. LABS SHOW: Sodium 139, potassium 4.6, chloride 102, BUN 115, serum creatinine 2.79, hemoglobin 8.6 g/dL. ASSESSMENT: 1. Chronic kidney disease secondary to FSGS, maintained on Prograf and prednisone. Renal function not far from baseline. 2. Disproportionately elevated BUN secondary to some degree of prerenal state. The patient is not on high-dose prednisone. We need to rule out a GI bleed as his hemoglobin has dropped from 10.5 to 8.6. 3. Anemia of chronic disease. Rule out acute gastrointestinal bleed. The patient was maintained on Procrit as outpatient. We will resume with Aranesp. Check stool for occult blood. 4. History of C. difficile colitis status post fecal transplant. 5. Urinary tract infection. Urine culture growing gram-negative bacilli, currently improving. PLAN: Check stool for occult blood. Hold off on Zaroxolyn for now. Repeat labs in a.m. and start Aranesp. MMODL / IJN: [id number] /
[2017-05-17] MEDS: LEFLUNOMIDE 20 MG TAB PO SCH (20:48)
[2017-05-17] MEDS: ATORVASTATIN 40 MG TAB PO SCH (20:57)
[2017-05-17] MEDS: POTASSIUM CHLORIDE ER 20 MEQ TAB.ER PO SCH (20:57)
--- NOTE | 2017-05-17 21:59 | PN ---
PROGRESS NOTE DATE OF SERVICE: 05/17/17. ATTENDING NOTE: The patient was seen and examined by me. Discussed with nurse practitioner, Ms. Boston. Patient admitted with acute delirium with UTI with sepsis. Doing better today. Tolerated his meals. PHYSICAL EXAMINATION: Afebrile. Pulse , respirations 16, blood pressure 130/68, pulse ox 96% on 2 L. Lungs decreased breath sounds. Awake, answering questions. INVESTIGATIONS: White count 9.1, hemoglobin 8.6, BUN creatinine 2.79. ASSESSMENT: 1. Acute severe urinary tract infection with sepsis causing acute delirium on presentation clinical improvement. 2. Chronic kidney disease, focal segmental glomerulosclerosis. 3. Severe psoriatic arthritis. 4. Acute kidney injury secondary to hypotension, hypoperfusion side, acute renal failure. PLAN: Zestril was discontinued per Nephrology, the patient is on Eliquis. Prognosis guarded. Renal failure is actually got a bit worse. Follow closely. MMODL / IJN: [id number] /
--- NOTE | 2017-05-17 22:50 | P.PN ---
Subjective Progress Note Date: 05/17/17 Principal diagnosis: UTI this is a 77-year-old male patient well-known to ID service with history of psoriatic arthritis on Arava and chronic kidney disease stage III secondary to biopsy-proven FSGS with baseline creatinine of 1.7 on Prograf and prednisone and follows at [facility], anemia of chronic disease and receives Procrit injection every Tuesday at [facility]. 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 Gill at [facility] on February 04. Patient apparently has not been feeling well for a week or more but did not want to be started on antibiotics. There was concern for urinary tract infection. Family state that he had altered mental status, fever and was not doing well with increased weakness at home and called EMS and patient was brought into [facility] emergency center. Chest x-ray shows mild heart failure without change from previous. Bilateral pleural effusions. Temperature 102.6, tachycardia, pulse ox 88%. Patient is not on home oxygen. White count was 17. Creatinine is 2.6, albumin 2.8. Urinalysis was cloudy, blood small, leukoesterase small, WBC 44, WBC clumps few. Influenza testing a and B were negative. Urine and blood cultures are status received. Patient was started on Unasyn and admitted to the selective care unit. Consults are in place for nephrology for acute kidney injury and cardiology for atrial fibrillation. patient does have chronic lower extremity edema which is increased recently. Feeling better today. Objective - Vital Signs Vital signs: Vital Signs Temp 97.9 F 05/17/17 20:00 Pulse 81 05/17/17 20:00 Resp 18 05/17/17 20:00 BP 128/82 05/17/17 20:00 Pulse Ox 93 L 05/17/17 20:00 Intake & Output 05/17/17 05/17/17 05/18/17 06:59 18:59 06:59 Intake Total 1320 Output Total 600 200 Balance -600 1120 Weight 101.5 kg Intake: Oral 1320 Output: Urine 600 200 Other: Voiding Method Urinal Urinal Urinal # Voids 1 1 # Bowel Movements 1 - Exam Gen: This is and OB 77-year-old male. He is sitting up in bed and appears to be comfortable. HEENT: Head is atraumatic, normocephalic. Pupils equal, round. Sclerae is anicteric. NECK: Supple. No JVD. No lymphadenopathy. No thyromegaly. LUNGS: bilateral crackles. No intercostal retractions. HEART: irregular rate and rhythm. systolic murmur. ABDOMEN: Soft. Bowel sounds are present. No masses. No tenderness. EXTREMITIES: 1+ bilateral pedal edemawith very mild erythema to the lower extremities.. No calf tenderness.dorsalis pedis +2 bilaterally. NEUROLOGICAL: Patient is awake, alert and oriented x3. - Labs CBC & Chem 7: 05/17/17 05:48 05/17/17 05:48 Labs: Abnormal Lab Results - Last 24 Hours (Table) 05/17/17 05/17/17 Range/Units 05:48 05:48 RBC 2.88 L (4.30-5.90) m/uL Hgb 8.6 L D (13.0-17.5) gm/dL Hct 28.3 L (39.0-53.0) % MCHC 30.5 L (31.0-37.0) g/dL Neutrophils # 7.9 H (1.3-7.7) k/uL Lymphocytes # 0.5 L (1.0-4.8) k/uL Carbon Dioxide 32 H (22-30) mmol/L BUN 115 H* (9-20) mg/dL Creatinine 2.79 H (0.66-1.25) mg/dL Calcium 8.2 L (8.4-10.2) mg/dL Microbiology - Last 24 Hours (Table) 05/16/17 11:04 Blood Culture - Preliminary Blood No Growth after 24 hours 05/16/17 00:07 Urine Culture - Preliminary Urine,Catheterized Gram Neg Bacilli 05/15/17 23:10 Blood Culture - Preliminary Blood No Growth after 24 hours Laboratory Results WBC 9.1 k/uL (3.8-10.6) 05/17/17 05:48 RBC 2.88 m/uL (4.30-5.90) L 05/17/17 05:48 Hgb 8.6 gm/dL (13.0-17.5) L D 05/17/17 05:48 Hct 28.3 % (39.0-53.0) L 05/17/17 05:48 MCV 98.3 fL (80.0-100.0) 05/17/17 05:48 MCH 30.0 pg (25.0-35.0) 05/17/17 05:48 MCHC 30.5 g/dL (31.0-37.0) L 05/17/17 05:48 RDW 14.8 % (11.5-15.5) 05/17/17 05:48 Plt Count 174 k/uL (150-450) 05/17/17 05:48 Neutrophils % 87 % 05/17/17 05:48 Lymphocytes % 5 % 05/17/17 05:48 Monocytes % 5 % 05/17/17 05:48 Eosinophils % 2 % 05/17/17 05:48 Basophils % 0 % 05/17/17 05:48 Neutrophils # 7.9 k/uL (1.3-7.7) H 05/17/17 05:48 Lymphocytes # 0.5 k/uL (1.0-4.8) L 05/17/17 05:48 Monocytes # 0.5 k/uL (0-1.0) 05/17/17 05:48 Eosinophils # 0.2 k/uL (0-0.7) 05/17/17 05:48 Basophils # 0.0 k/uL (0-0.2) 05/17/17 05:48 Hypochromasia Slight 05/15/17 23:10 Anisocytosis Slight 05/15/17 23:10 Macrocytosis Slight 05/15/17 23:10 PT 10.0 sec (9.0-12.0) 05/15/17 23:10 INR 1.0 (<1.2) 05/15/17 23:10 APTT 22.3 sec (22.0-30.0) 05/15/17 23:10 Sodium 139 mmol/L (137-145) 05/17/17 05:48 Potassium 4.6 mmol/L (3.5-5.1) 05/17/17 05:48 Chloride 102 mmol/L (98-107) 05/17/17 05:48 Carbon Dioxide 32 mmol/L (22-30) H 05/17/17 05:48 Anion Gap 5 mmol/L 05/17/17 05:48 BUN 115 mg/dL (9-20) H* 05/17/17 05:48 Creatinine 2.79 mg/dL (0.66-1.25) H 05/17/17 05:48 Est GFR (MDRD) Af Amer 27 (>60 ml/min/1.73 sqM) 05/17/17 05:48 Est GFR (MDRD) Non-Af 22 (>60 ml/min/1.73 sqM) 05/17/17 05:48 Glucose 98 mg/dL (74-99) 05/17/17 05:48 Plasma Lactic Acid Jean [place] 1.2 mmol/L (0.7-2.0) 05/15/17 23:10 Calcium 8.2 mg/dL (8.4-10.2) L 05/17/17 05:48 Phosphorus 4.7 mg/dL (2.5-4.5) H 05/15/17 23:10 Magnesium 1.5 mg/dL (1.6-2.3) L 05/15/17 23:10 Total Bilirubin 0.4 mg/dL (0.2-1.3) 05/15/17 23:10 AST 34 U/L (17-59) 05/15/17 23:10 ALT 35 U/L (21-72) 05/15/17 23:10 Alkaline Phosphatase 97 U/L (38-126) 05/15/17 23:10 Total Creatine Kinase 52 U/L (55-170) L 05/15/17 23:10 CK-MB (CK-2) 1.2 ng/mL (0.0-2.4) 05/15/17 23:10 CK-MB (CK-2) Rel Index 2.3 05/15/17 23:10 Troponin I 0.064 ng/mL (0.000-0.034) H* 05/15/17 23:10 Total Protein 6.1 g/dL (6.3-8.2) L 05/15/17 23:10 Albumin 2.8 g/dL (3.5-5.0) L 05/15/17 23:10 Urine Color Yellow 05/16/17 00:07 Urine Appearance Cloudy (Clear) 05/16/17 00:07 Urine pH 6.0 (5.0-8.0) 05/16/17 00:07 Ur Specific [place] 1.011 (1.001-1.035) 05/16/17 00:07 Urine Protein 3+ (Negative) H 05/16/17 00:07 Urine Glucose (UA) Negative (Negative) 05/16/17 00:07 Urine Ketones Negative (Negative) 05/16/17 00:07 Urine Blood Small (Negative) H 05/16/17 00:07 Urine Nitrite Negative (Negative) 05/16/17 00:07 Urine Bilirubin Negative (Negative) 05/16/17 00:07 Urine Urobilinogen <2.0 mg/dL (<2.0) 05/16/17 00:07 Ur Leukocyte Esterase Small (Negative) H 05/16/17 00:07 Urine WBC 44 /hpf (0-5) H 05/16/17 00:07 Urine WBC Clumps Few /hpf (None) H 05/16/17 00:07 Urine Bacteria Many /hpf (None) H 05/16/17 00:07 Influenza Type A RNA Not Detected (Not Detectd) 05/15/17 23:10 Influenza Type B (PCR) Not Detected (Not Detectd) 05/15/17 23:10 Microbiology 05/16/17 11:04 Blood Blood Culture - Preliminary No Growth after 24 hours 05/16/17 00:07 Urine,Catheterized Urine Culture - Preliminary Gram Neg Bacilli 05/15/17 23:10 Blood Blood Culture - Preliminary No Growth after 24 hours Assessment and Plan (1) UTI (urinary tract infection) Narrative/Plan: 77-year-old gentleman who is quite debilitated from his rheumatoid arthritis had a sudden onset of high-grade fever with alteration of his mental status. Mental status is now improving as his fever is improved. At admission there was a markedly abnormal urinalysis and urine culture currently is pending awaiting the final results. With his history of C. diff colitis and fecal transplantation and overall goal is to limit antimicrobial therapy as much as possible. The patient presents with sepsis with high-grade fever leukocytosis and evidence of pyuria. Patient is now feeling better with hydration and antibiotic therapy in the form of Unasyn. This is been chosen because of the prior Enterococcus faecalis isolate from his urine. Once urine cultures available within try to streamline antibiotic therapy as much as possible. Preliminary data show evidence of the gram-negative bacilli. Fortunately he has had a marked improvement of his status with no evidence of diarrhea. Again great concerns because of his history of C. diff in need of fecal transplantation. Continue probiotic therapy. Current Visit: Yes Status: Acute Code(s): N39.0 - URINARY TRACT INFECTION, SITE NOT SPECIFIED SNOMED Code(s): 60895555 (2) Sepsis Current Visit: Yes Status: Acute Code(s): A41.9 - SEPSIS, UNSPECIFIED ORGANISM SNOMED Code(s): 74135739
[2017-05-18 06:21] LABS: Basophils % (A) 0 %; Eosinophils # (A) 0.2 k/uL (0-0.7); Eosinophils % (A) 2 %; HCT 31.2 % (39.0-53.0); HGB 9.5 gm/dL (13.0-17.5); Hypochromasia Slight; Lymphocytes # (A) 0.4 k/uL (1.0-4.8); Lymphocytes % (A) 5 %; MCHC 30.3 g/dL (31.0-37.0); Macrocytosis Slight; Mean Platelet Volume 8.6; Monocytes # (A) 0.5 k/uL (0-1.0); Monocytes % (A) 7 %; Neutrophils # (A) 6.8 k/uL (1.3-7.7); Neutrophils % (A) 84 %; Platelet Count 169 k/uL (150-450); RBC 3.15 m/uL (4.30-5.90); RDW 15.7 % (11.5-15.5)
[2017-05-18 06:51] LABS: Calcium 8.4 mg/dL (8.4-10.2); Potassium 5.4 mmol/L (3.5-5.1)
[2017-05-18] MEDS: ISOSORBIDE MONONITRATE ER 30 MG TAB.ER.24H PO SCH (08:37)
[2017-05-18] MEDS: LACTOBACILLUS ACIDOPH & BULGAR 1 EACH PACKET PO SCH (08:37)
[2017-05-18] MEDS: TACROLIMUS 1 MG CAP PO SCH (08:37)
[2017-05-18] MEDS: APIXABAN 2.5 MG TABLET PO SCH ×2 (08:37→20:10)
[2017-05-18] MEDS: ALLOPURINOL 100 MG TAB PO SCH ×2 (08:37→20:10)
[2017-05-18] MEDS: FAMOTIDINE 20 MG TAB PO SCH (08:37)
[2017-05-18] MEDS: CALCIUM CARB-VIT D 500MG-200UN 1 EACH TAB PO SCH (08:37)
[2017-05-18] MEDS: predniSONE 10 MG TAB PO SCH (08:37)
[2017-05-18] MEDS: TAMSULOSIN 0.4 MG CAP.ER.24H PO SCH ×2 (08:37→20:11)
[2017-05-18] MEDS: GABAPENTIN 300 MG CAP PO SCH ×2 (08:37→20:11)
[2017-05-18] MEDS: DILTIAZEM CD 120 MG CAP.ER.24H PO SCH (08:38)
[2017-05-18] MEDS: MULTIVITAMINS, THERA 1 EACH TAB PO SCH (08:38)
[2017-05-18] MEDS: FLORASTOR 250 MG PO SCH (08:38)
[2017-05-18] MEDS: PROPRANOLOL LA 60 MG CAP.SA.24H PO SCH (08:38)
--- NOTE | 2017-05-18 09:47 | P.PN ---
Subjective Patient is seen in follow-up for acute kidney injury on chronic kidney disease. 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 He is maintained on prednisone and Prograf. Renal function is worsening with creatinine up at 3.17 today. His blood pressures were running on the lower side for which his RICK inhibitor and diuretics were discontinued. His hemoglobin is up to 9.5 today. Denies any bloody bowel movements. No melena. Oral intake is fair. Admits to good urine output. His blood pressure is now in the systolic 130s to 150s. Vital signs are stable. General: The patient appeared well nourished and normally developed. HEENT: Head exam is unremarkable. Neck is without jugular venous distension. LUNGS: Lungs are clear to auscultation and percussion. Breath sounds decreased. HEART: Rate and Rhythm are regular. First and second heart sounds normal. No murmurs, rubs or gallops. ABDOMEN: Abdominal exam reveals normal bowel sounds. Non-tender and non- distended. No evidence of peritonitis. EXTREMITITES: No clubbing, cyanosis, or edema. Objective - Vital Signs Vital signs: Vital Signs Temp 97.9 F 05/18/17 04:00 Pulse 80 05/18/17 04:00 Resp 18 05/18/17 04:00 BP 153/90 05/18/17 04:00 Pulse Ox 93 L 05/18/17 04:00 Intake & Output 05/17/17 05/18/17 05/18/17 18:59 06:59 18:59 Intake Total 1320 100 236 Output Total 200 102 250 Balance 1120 -2 -14 Weight 98.5 kg Intake: Intake, IV Titration 100 Amount Ampicillin-Sulbactam 3 gm 100 In Sodium Chloride 0.9% 100 ml @ 100 mls/hr IVPB Q12HR [facility] Rx#:[id number] Oral 1320 236 Output: Urine 200 100 250 Stool 2 Other: Voiding Method Urinal Urinal # Voids 1 1 # Bowel Movements 1 - Labs CBC & Chem 7: 05/18/17 05:56 05/18/17 05:56 Labs: Abnormal Lab Results - Last 24 Hours (Table) 05/18/17 05/18/17 Range/Units 05:56 05:56 RBC 3.15 L (4.30-5.90) m/uL Hgb 9.5 L (13.0-17.5) gm/dL Hct 31.2 L (39.0-53.0) % MCHC 30.3 L (31.0-37.0) g/dL RDW 15.7 H (11.5-15.5) % Lymphocytes # 0.4 L (1.0-4.8) k/uL Potassium 5.4 H (3.5-5.1) mmol/L Carbon Dioxide 31 H (22-30) mmol/L BUN 118 H* (9-20) mg/dL Creatinine 3.17 H (0.66-1.25) mg/dL Glucose 128 H (74-99) mg/dL Microbiology - Last 24 Hours (Table) 05/15/17 23:10 Blood Culture - Preliminary Blood No Growth after 48 hours 05/16/17 11:04 Blood Culture - Preliminary Blood No Growth after 24 hours 05/16/17 00:07 Urine Culture - Preliminary Urine,Catheterized Gram Neg Bacilli Assessment and Plan Plan: Assessment: #1. Nonoliguric acute kidney injury secondary to ATN secondary to hypotension as well as UTI. Creatinine up to 3.1 today. #2. 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 #3. Anemia of chronic kidney disease maintained on Aranesp. No evidence of acute bleeding. Hemoglobin improved to 9.5 today. BUN elevated at 118. Stools for occult blood pending. #4. UTI with urine culture positive for gram-negative bacilli. #5. Mild hyperkalemia due to acute kidney injury. Plan: Encourage oral intake. Follow-up cultures. Antibiotics per infectious disease recommendations. Avoid nephrotoxic agents and hypotensive episodes. Maintain Prograf and prednisone. Check a Prograf level in the morning. Low potassium diet. Discontinue potassium supplementation. Repeat electrolytes in the morning. Follow-up stool for occult blood. Continue to hold diuretics for now.
[2017-05-18] MEDS: AMPICILLIN-SULBACTAM 3 GM in SODIUM CHLORIDE 0.9% 100 ML IVPB SCH ×2 (11:50→20:14)
--- NOTE | 2017-05-18 15:25 | P.PN ---
Subjective Progress Note Date: 05/18/17 This is a 77-year-old gentleman with known history of hyperlipidemia, hypertension, chronic renal failure, prior CVA, chronic persistent atrial fibrillation. Patient was brought to the hospital, his was concerned about him looking very sick lately, he also was noted to have some mental status changes. EKG on arrival here showed atrial fibrillation with a moderately rapid ventricular response. Chest x-ray reveals mild congestive heart failure with small bilateral pleural effusions. Temperature on arrival 102.6, blood pressure 147/90, heart rate in the 90s, 88% on room air. Blood pressure this morning 96/50, 93% on room air. White blood cell count on admission 17, hemoglobin 10.5, platelet count 182. Sodium 138, potassium 4.3, BUN 111, creatinine 2.6. A mag level I.5. Troponin 0.064. Influenza A and B- . Urinalysis revealed mild UTI. Cardiology consultation was requested because of abnormal troponin as well as atrial fibrillation with a rapid ventricular response. At the time of my examination this morning, patient is quite sleepy, denies chest pain, denies shortness of breath, does state he has an occasional cough. 05/17/2017 Patient seen and examined today, overall he states he is feeling much better. Hemoglobin down to 8.6, BUN 1:15, creatinine 2.7. He is remaining afebrile. She is to have peripheral edema however he is lying flat at the time of our examination with no shortness of breath. 05/18 2017 Patient seen and examined this morning, overall feeling better. BUN 118, creatinine 3.1, potassium 5.4, hemoglobin 0.5. Diuretic management as per nephrology. Continues to have significant bilateral peripheral edema. P Objective - Vital Signs Vital signs: Vital Signs Temp 97 F L 05/18/17 08:00 Pulse 79 05/18/17 11:55 Resp 16 05/18/17 14:10 BP 147/92 05/18/17 11:55 Pulse Ox 95 05/18/17 11:55 Intake & Output 05/17/17 05/18/17 05/18/17 18:59 06:59 18:59 Intake Total 1320 100 436 Output Total 200 102 252 Balance 1120 -2 184 Weight 98.5 kg Intake: Intake, IV Titration 100 Amount Ampicillin-Sulbactam 3 gm 100 In Sodium Chloride 0.9% 100 ml @ 100 mls/hr IVPB Q12HR [facility] Rx#:[id number] Oral 1320 436 Output: Urine 200 100 250 Stool 2 2 Other: Voiding Method Urinal Urinal Urinal # Voids 1 1 # Bowel Movements 1 - Exam PHYSICAL EXAMINATION: HEENT: [Head is atraumatic, normocephalic. Pupils equal, round. Neck is supple. There is no elevated jugular venous pressure.] HEART EXAMINATION: Heart S1 and S2 irregularly irregular a systolic murmur is heard. CHEST EXAMINATION: Lungs reveal crackles bilaterally to the bases with mild diminished air entry ABDOMEN: [ Soft, obese, nontender. Bowel sounds are heard. No organomegaly noted ]. EXTREMITIES:[ 2+ peripheral pulses with 1-2+ evidence of peripheral edema and mild redness noted to bilateral lower extremity, NEUROLOGIC [patient is sleepy, somewhat difficult to arouse - Labs CBC & Chem 7: 05/18/17 05:56 05/18/17 05:56 Labs: Abnormal Lab Results - Last 24 Hours (Table) 05/18/17 05/18/17 Range/Units 05:56 05:56 RBC 3.15 L (4.30-5.90) m/uL Hgb 9.5 L (13.0-17.5) gm/dL Hct 31.2 L (39.0-53.0) % MCHC 30.3 L (31.0-37.0) g/dL RDW 15.7 H (11.5-15.5) % Lymphocytes # 0.4 L (1.0-4.8) k/uL Potassium 5.4 H (3.5-5.1) mmol/L Carbon Dioxide 31 H (22-30) mmol/L BUN 118 H* (9-20) mg/dL Creatinine 3.17 H (0.66-1.25) mg/dL Glucose 128 H (74-99) mg/dL Microbiology - Last 24 Hours (Table) 05/16/17 11:04 Blood Culture - Preliminary Blood No Growth after 48 hours 05/16/17 00:07 Urine Culture - Final Urine,Catheterized Klebsiella pneumoniae 05/15/17 23:10 Blood Culture - Preliminary Blood No Growth after 48 hours Assessment and Plan Plan: Assessment and plan #1 symptoms of mental status change and weakness, likely secondary to sepsis. Temperature on arrival 102.7. Patient is currently on antibiotics. Flu swab was negative. White blood cell count 17.0 #2 atrial fibrillation with rapid ventricular response, patient has history of chronic persistent atrial fibrillation, on Eliquis for anticoagulation. IV Cardizem discontinued. Heart rate 80 this morning #3 acute on chronic renal failure, stage III #4 hypertension history # 5 borderline diabetes #6 hyperlipidemia #7 prior CVA #8 hypomagnesemia #9 chronic anemia #10 arthritis #11 abnormal troponin, likely secondary to abnormal renal function. On review of patient's prior admissions, troponins are consistently in this abnormal range. #12 systolic congestive heart failure acute on chronic Plan Echocardiogram with Doppler study revealed an LV function of 30-35%.. Continue Eliquis, Lipitor, Imdur 30 mg daily, and Inderal 60 mg daily. Continue antibiotics. We will discontinue the Cardizem because of the reduced LV function. No RICK inhibitor on board secondary to renal function. Blood pressure 142/80. We'll follow this patient now on an as-needed basis, please stay to call with any questions. DNP note has been reviewed, I agree with a documented findings and plan of care. Patient was seen and examined.
[2017-05-18 15:47] LABS: Iron Saturation 19.91 (15.00-50.00)
[2017-05-18] MEDS: CHOLESTYRAMINE (WITH SUGAR) 4 GM PACKET PO SCH (16:18)
--- NOTE | 2017-05-18 18:31 | P.PN ---
Progress Note - Text Progress Note Date: 05/18/17 DATE OF SERVICE: 05/18/2017 PRESENTING COMPLAINT: Shaking mental status changes HISTORY OF PRESENT ILLNESS: 77-year-old male who was brought in by his he became confused for about a day had some shaking and increased back pain decreased appetite rundown and was brought in found to have a fever of 102.6 and a heart rate of 129 felt to be septic. Admitted for the same. INTERVAL HISTORY: 05/18/2017: Lying in bed at the bedside, appears comfortable able to lie flat with no shortness of breath noted. Afebrile, somewhat tired appearing in no delirium. unhappy because he is no longer allowed to have any ice creamper nephrology. No cough, up with assistance, tolerating his diet eating between 75% and 100% of his mealslast BM 05/17/2017. 05/17/2017: Patient lying in bed at the bedside, appears comfortable currently lying flat in bed. Afebrile, somewhat tired appearing but delirium has dissipated, no cough, up with assistance, tolerating his diet eating between 75% in the 100 % of his meals, last BM prior to admission. REVIEW OF SYSTEMS: Done for constitutional ,cardiovascular, GI, pulmonary with relevant findings as above. CURRENT MEDICATIONS Zyloprim, Ampicillin/sulbactam, Eliquis, Lipitor, Os-Claudio, Questran, Cardizem, vitamin D2, famotidine, gabapentin, Imdur, Lactinex, Theragran-M, potassium, prednisone, propranolol, Prograf, Flomax, Ultram. PHYSICAL EXAM VITAL SIGNS: temperature 97.0, pulse 82, respirations 16, blood pressure 142/80, oxygen saturation 95% on 2 L. GENERAL APPEARANCE: Lying in bed, appears comfortable HEENT: Normocephalic, Pupils equal. Conjunctiva normal. JVD not raised. Mass not palpable.: RESPIRATORY: Respiratory effort mildly increased. Lungs diminished to auscultation. CARDIOVASCULAR: First and second sounds normal. moderate edema . ABDOMEN: Soft. Liver and spleen not palpable. No tenderness. No mass palpable. PSYCHIATRY: Alert and oriented 3 Mood and affect normal. MUSCULOSKELETAL: Evidence of severe arthritic disfigurement, especially in the bilateral hands. INVESTIGATIONS: LABS: hemoglobin 9.5, potassium 5.4,BUN 118, creatinine 3.17, iron 43, TIBC 216 , ferritin 1091. urine culture: Klebsiella pneumoniae ASSESSMENT: -Acute severe urinary tract infection with urine culture positive for Klebsiella pneumoniae , with sepsis causing acute delirium on presentation, improving -acute kidney injury secondary to hypotension, hypoperfusion and acute renal failure -Troponin leak from hemodynamic mismatch, not acute myocardial infarction, from underlying sepsis., -Possible persistent atrial fibrillation. -severe psoriatic arthritis -Chronic congestive heart failure from systolic dysfunction, ejection fraction 30-35%. -Chronic hard of hearing. -Hyperlipidemia. -Essential hypertension. -Chronic kidney disease, focal segmental glomerulosclerosis -Chronic nephrotic syndrome. -Bilateral torn rotator cuff. PLAN: Continue antibiotic therapy, urine culture positive for Klebsiella pneumoniaewe' ll continue ampicillin sulbactam as it is sensitive to that. Zestril discontinued, and diuretics for now per nephrology. Cardiology continued Eliquis, Lipitor, Imdur, and Inderal and will DC Cardizem because of reduced LV function and no RICK inhibitor due to renal function. Plan of care discussed with the patient and family at bedside in agreement we will follow closely. NET SOFTWARE ENGINEER statement: Patient was seen and examined by nurse practitioner Katy Boston and all elements of the case discussed with attending Dr. Bailey
[2017-05-18] MEDS ORDERED: SODIUM CHLORIDE 0.9% 1,000 ML IV SCH (19:30)
[2017-05-18] MEDS: ATORVASTATIN 40 MG TAB PO SCH (20:11)
--- NOTE | 2017-05-18 20:30 | PN ---
PROGRESS NOTE DATE OF SERVICE: 05/18/2017. ATTENDING NOTE: Patient was seen and examined by me. I discussed with my nurse practitioner, Ms. Boston. Patient admitted with acute UTI with sepsis, delirium, doing much better, tolerating a diet, is greatly improved. EXAMINATION: Afebrile. LUNGS: Decreased breath sounds. CARDIOVASCULAR: First and second sounds normal. PSYCH: AO x3. INVESTIGATIONS: White count 18, hemoglobin 9.5. Potassium 5.4, BUN 118, creatinine 3.17. Iron 43, ferritin 1091. Urine cultures growing Klebsiella pneumoniae. Blood cultures are negative. ASSESSMENT: 1. Acute severe urinary tract infection with sepsis from acute delirium on presentation. Cultures positive for Klebsiella pneumoniae with clinical improvement. 2. Acute kidney injury secondary to hypotension, hypoperfusion, worsening. The patient is on IV Unasyn. Diuretics have been held. Will need to have the patient's renal function improve , will gently start the patient to be hydrated. Keep a close eye on the potassium. MMODL / IJN: [id number] /
[2017-05-18 20:42] VITALS: RESP 18
--- NOTE | 2017-05-18 22:15 | P.PN ---
Subjective Progress Note Date: 05/18/17 Principal diagnosis: UTI this is a 77-year-old male patient well-known to ID service with history of psoriatic arthritis on Arava and chronic kidney disease stage III secondary to biopsy-proven FSGS with baseline creatinine of 1.7 on Prograf and prednisone and follows at [facility], anemia of chronic disease and receives Procrit injection every Tuesday at [facility]. 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 Gill at [facility] on February 04. Patient apparently has not been feeling well for a week or more but did not want to be started on antibiotics. There was concern for urinary tract infection. Family state that he had altered mental status, fever and was not doing well with increased weakness at home and called EMS and patient was brought into [facility] emergency center. Chest x-ray shows mild heart failure without change from previous. Bilateral pleural effusions. Temperature 102.6, tachycardia, pulse ox 88%. Patient is not on home oxygen. White count was 17. Creatinine is 2.6, albumin 2.8. Urinalysis was cloudy, blood small, leukoesterase small, WBC 44, WBC clumps few. Influenza testing a and B were negative. Urine and blood cultures are status received. Patient was started on Unasyn and admitted to the selective care unit. Consults are in place for nephrology for acute kidney injury and cardiology for atrial fibrillation. patient does have chronic lower extremity edema which is increased recently. Feeling better again today. Objective - Vital Signs Vital signs: Vital Signs Temp 97.9 F 05/18/17 20:00 Pulse 79 05/18/17 20:00 Resp 18 05/18/17 20:00 BP 147/90 05/18/17 20:00 Pulse Ox 95 05/18/17 20:00 Intake & Output 05/18/17 05/18/17 05/19/17 06:59 18:59 06:59 Intake Total 100 676 Output Total 102 352 Balance -2 324 Weight 98.5 kg Intake: Intake, IV Titration 100 Amount Ampicillin-Sulbactam 3 gm 100 In Sodium Chloride 0.9% 100 ml @ 100 mls/hr IVPB Q12HR NEW Rx#:[id number] Oral 676 Output: Urine 100 350 Stool 2 2 Other: Voiding Method Urinal Urinal Urinal # Voids 1 1 # Bowel Movements 1 - Exam Gen: This is and OB 77-year-old male. He is sitting up in bed and appears to be comfortable. HEENT: Head is atraumatic, normocephalic. Pupils equal, round. Sclerae is anicteric. NECK: Supple. No JVD. No lymphadenopathy. No thyromegaly. LUNGS: bilateral crackles. No intercostal retractions. HEART: irregular rate and rhythm. systolic murmur. ABDOMEN: Soft. Bowel sounds are present. No masses. No tenderness. EXTREMITIES: 1+ bilateral pedal edemawith very mild erythema to the lower extremities.. No calf tenderness.dorsalis pedis +2 bilaterally. NEUROLOGICAL: Patient is awake, alert and oriented x3. - Labs CBC & Chem 7: 05/18/17 05:56 05/18/17 05:56 Labs: Abnormal Lab Results - Last 24 Hours (Table) 05/18/17 05/18/17 05/18/17 Range/Units 05:56 05:56 05:56 RBC 3.15 L (4.30-5.90) m/uL Hgb 9.5 L (13.0-17.5) gm/dL Hct 31.2 L (39.0-53.0) % MCHC 30.3 L (31.0-37.0) g/dL RDW 15.7 H (11.5-15.5) % Lymphocytes # 0.4 L (1.0-4.8) k/uL Potassium 5.4 H (3.5-5.1) mmol/L Carbon Dioxide 31 H (22-30) mmol/L BUN 118 H* (9-20) mg/dL Creatinine 3.17 H (0.66-1.25) mg/dL Glucose 128 H (74-99) mg/dL Iron 43 L (65-175) ug/dL TIBC 216 L (228-460) ug/dL Ferritin 1091.0 H (22.0-322.0) ng/mL Microbiology - Last 24 Hours (Table) 05/16/17 11:04 Blood Culture - Preliminary Blood No Growth after 48 hours 05/16/17 00:07 Urine Culture - Final Urine,Catheterized Klebsiella pneumoniae 05/15/17 23:10 Blood Culture - Preliminary Blood No Growth after 48 hours Laboratory Results WBC 8.0 k/uL (3.8-10.6) 05/18/17 05:56 RBC 3.15 m/uL (4.30-5.90) L 05/18/17 05:56 Hgb 9.5 gm/dL (13.0-17.5) L 05/18/17 05:56 Hct 31.2 % (39.0-53.0) L 05/18/17 05:56 MCV 99.0 fL (80.0-100.0) 05/18/17 05:56 MCH 30.0 pg (25.0-35.0) 05/18/17 05:56 MCHC 30.3 g/dL (31.0-37.0) L 05/18/17 05:56 RDW 15.7 % (11.5-15.5) H 05/18/17 05:56 Plt Count 169 k/uL (150-450) 05/18/17 05:56 Neutrophils % 84 % 05/18/17 05:56 Lymphocytes % 5 % 05/18/17 05:56 Monocytes % 7 % 05/18/17 05:56 Eosinophils % 2 % 05/18/17 05:56 Basophils % 0 % 05/18/17 05:56 Neutrophils # 6.8 k/uL (1.3-7.7) 05/18/17 05:56 Lymphocytes # 0.4 k/uL (1.0-4.8) L 05/18/17 05:56 Monocytes # 0.5 k/uL (0-1.0) 05/18/17 05:56 Eosinophils # 0.2 k/uL (0-0.7) 05/18/17 05:56 Basophils # 0.0 k/uL (0-0.2) 05/18/17 05:56 Hypochromasia Slight 05/18/17 05:56 Anisocytosis Slight 05/15/17 23:10 Macrocytosis Slight 05/18/17 05:56 PT 10.0 sec (9.0-12.0) 05/15/17 23:10 INR 1.0 (<1.2) 05/15/17 23:10 APTT 22.3 sec (22.0-30.0) 05/15/17 23:10 Sodium 143 mmol/L (137-145) 05/18/17 05:56 Potassium 5.4 mmol/L (3.5-5.1) H 05/18/17 05:56 Chloride 104 mmol/L (98-107) 05/18/17 05:56 Carbon Dioxide 31 mmol/L (22-30) H 05/18/17 05:56 Anion Gap 8 mmol/L 05/18/17 05:56 BUN 118 mg/dL (9-20) H* 05/18/17 05:56 Creatinine 3.17 mg/dL (0.66-1.25) H 05/18/17 05:56 Est GFR (MDRD) Af Amer 23 (>60 ml/min/1.73 sqM) 05/18/17 05:56 Est GFR (MDRD) Non-Af 19 (>60 ml/min/1.73 sqM) 05/18/17 05:56 Glucose 128 mg/dL (74-99) H 05/18/17 05:56 Plasma Lactic Acid [place] 1.2 mmol/L (0.7-2.0) 05/15/17 23:10 Calcium 8.4 mg/dL (8.4-10.2) 05/18/17 05:56 Phosphorus 4.7 mg/dL (2.5-4.5) H 05/15/17 23:10 Magnesium 1.5 mg/dL (1.6-2.3) L 05/15/17 23:10 Iron 43 ug/dL (65-175) L 05/18/17 05:56 TIBC 216 ug/dL (228-460) L 05/18/17 05:56 Iron Saturation 19.91 (15.00-50.00) 05/18/17 05:56 Ferritin 1091.0 ng/mL (22.0-322.0) H 05/18/17 05:56 Total Bilirubin 0.4 mg/dL (0.2-1.3) 05/15/17 23:10 AST 34 U/L (17-59) 05/15/17 23:10 ALT 35 U/L (21-72) 05/15/17 23:10 Alkaline Phosphatase 97 U/L (38-126) 05/15/17 23:10 Total Creatine Kinase 52 U/L (55-170) L 05/15/17 23:10 CK-MB (CK-2) 1.2 ng/mL (0.0-2.4) 05/15/17 23:10 CK-MB (CK-2) Rel Index 2.3 05/15/17 23:10 Troponin I 0.064 ng/mL (0.000-0.034) H* 05/15/17 23:10 Total Protein 6.1 g/dL (6.3-8.2) L 05/15/17 23:10 Albumin 2.8 g/dL (3.5-5.0) L 05/15/17 23:10 Urine Color Yellow 05/16/17 00:07 Urine Appearance Cloudy (Clear) 05/16/17 00:07 Urine pH 6.0 (5.0-8.0) 05/16/17 00:07 Ur Specific [place] 1.011 (1.001-1.035) 05/16/17 00:07 Urine Protein 3+ (Negative) H 05/16/17 00:07 Urine Glucose (UA) Negative (Negative) 05/16/17 00:07 Urine Ketones Negative (Negative) 05/16/17 00:07 Urine Blood Small (Negative) H 05/16/17 00:07 Urine Nitrite Negative (Negative) 05/16/17 00:07 Urine Bilirubin Negative (Negative) 05/16/17 00:07 Urine Urobilinogen <2.0 mg/dL (<2.0) 05/16/17 00:07 Ur Leukocyte Esterase Small (Negative) H 05/16/17 00:07 Urine WBC 44 /hpf (0-5) H 05/16/17 00:07 Urine WBC Clumps Few /hpf (None) H 05/16/17 00:07 Urine Bacteria Many /hpf (None) H 05/16/17 00:07 Influenza Type A RNA Not Detected (Not Detectd) 05/15/17 23:10 Influenza Type B (PCR) Not Detected (Not Detectd) 05/15/17 23:10 Microbiology 05/16/17 11:04 Blood Blood Culture - Preliminary No Growth after 48 hours 05/16/17 00:07 Urine,Catheterized Urine Culture - Final Klebsiella pneumoniae 05/15/17 23:10 Blood Blood Culture - Preliminary No Growth after 48 hours Assessment and Plan (1) UTI (urinary tract infection) Narrative/Plan: 77-year-old gentleman who is quite debilitated from his rheumatoid arthritis had a sudden onset of high-grade fever with alteration of his mental status. Mental status is now improving as his fever is improved. At admission there was a markedly abnormal urinalysis and urine culture currently is pending awaiting the final results. With his history of C. diff colitis and fecal transplantation and overall goal is to limit antimicrobial therapy as much as possible. The patient presents with sepsis with high-grade fever leukocytosis and evidence of pyuria. Patient is now feeling better with hydration and antibiotic therapy in the form of Unasyn. This is been chosen because of the prior Enterococcus faecalis isolate from his urine. Urine culture is now available and klebsiella pneumoniae has been isolated that is susceptible to doxycycline. Physical Unasyn is discontinued doxycycline is started and prescription is sent to his pharmacy with anticipation of his discharge tomorrow. Preliminary data show evidence of the gram-negative bacilli. Fortunately he has had a marked improvement of his status with no evidence of diarrhea. Again great concerns because of his history of C. diff in need of fecal transplantation. Continue probiotic therapy. Current Visit: Yes Status: Acute Code(s): N39.0 - URINARY TRACT INFECTION, SITE NOT SPECIFIED SNOMED Code(s): 13928322 (2) Sepsis Current Visit: Yes Status: Acute Code(s): A41.9 - SEPSIS, UNSPECIFIED ORGANISM SNOMED Code(s): 92556601
[2017-05-19] MEDS: DOXYCYCLINE 50 MG CAP PO SCH ×2 (00:16→08:32)
[2017-05-19 06:48] LABS: Basophils % (A) 0 %; Eosinophils # (A) 0.2 k/uL (0-0.7); Eosinophils % (A) 3 %; HCT 29.7 % (39.0-53.0); HGB 9.2 gm/dL (13.0-17.5); Hypochromasia Slight; Lymphocytes # (A) 0.5 k/uL (1.0-4.8); Lymphocytes % (A) 8 %; MCH 30.1 pg (25.0-35.0); MCV 97.3 fL (80.0-100.0); Mean Platelet Volume 8.1; Monocytes # (A) 0.5 k/uL (0-1.0); Monocytes % (A) 7 %; Neutrophils # (A) 5.4 k/uL (1.3-7.7); Neutrophils % (A) 81 %; Platelet Count 183 k/uL (150-450); RBC 3.05 m/uL (4.30-5.90); RDW 15.6 % (11.5-15.5); WBC 6.6 k/uL (3.8-10.6)
[2017-05-19 07:02] LABS: Calcium 8.4 mg/dL (8.4-10.2); Potassium 4.6 mmol/L (3.5-5.1)
[2017-05-19] MEDS: GABAPENTIN 300 MG CAP PO SCH (08:32)
[2017-05-19] MEDS: DILTIAZEM CD 120 MG CAP.ER.24H PO SCH (08:32)
[2017-05-19] MEDS: LACTOBACILLUS ACIDOPH & BULGAR 1 EACH PACKET PO SCH (08:32)
[2017-05-19] MEDS: APIXABAN 2.5 MG TABLET PO SCH (08:32)
[2017-05-19] MEDS: TACROLIMUS 1 MG CAP PO SCH (08:32)
[2017-05-19] MEDS: predniSONE 10 MG TAB PO SCH (08:32)
[2017-05-19] MEDS: ISOSORBIDE MONONITRATE ER 30 MG TAB.ER.24H PO SCH (08:32)
[2017-05-19] MEDS: ALLOPURINOL 100 MG TAB PO SCH (08:32)
[2017-05-19] MEDS: FAMOTIDINE 20 MG TAB PO SCH (08:32)
[2017-05-19] MEDS: TAMSULOSIN 0.4 MG CAP.ER.24H PO SCH (08:32)
[2017-05-19] MEDS: PROPRANOLOL LA 60 MG CAP.SA.24H PO SCH (08:32)
[2017-05-19] MEDS: CALCIUM CARB-VIT D 500MG-200UN 1 EACH TAB PO SCH (08:32)
[2017-05-19] MEDS: FLORASTOR 250 MG PO SCH (08:34)
[2017-05-19] MEDS ORDERED: SODIUM CHLORIDE 0.9% 1,000 ML IV SCH (09:00)
[2017-05-19] MEDS: AMPICILLIN-SULBACTAM 3 GM in SODIUM CHLORIDE 0.9% 100 ML IVPB SCH (09:50)
[2017-05-19 12:03] VITALS: BP 141/76; PULSE 81; TEMP 97
[2017-05-19] MEDS: MULTIVITAMINS, THERA 1 EACH TAB PO SCH (12:28)
--- NOTE | 2017-05-19 14:34 | PN ---
PROGRESS NOTE Patient is seen for followup for acute kidney injury on top of chronic kidney disease. He was admitted to the hospital with a urinary tract infection. His creatinine had gone up to 3.1 yesterday and patient was started on IV fluids. Last night creatinine was back down to 2.8. is concerned regarding worsening edema. Patient denies any chest pains or shortness of breath. He is being considered for discharge. PHYSICAL EXAMINATION: Blood pressure is 141/76, heart rate 81 per minute. Patient is afebrile. Examination of the heart, S1, S2. Examination of the lungs, bilateral breath sounds are heard. Abdomen is soft, nontender and obese. Examination of the lower extremities shows edema 1+ bilaterally with chronic skin changes. LABS: Show sodium 141, potassium 4.6, BUN 118, creatinine 2.8, hemoglobin 9.2 g/dL. ASSESSMENT: 1. Chronic kidney disease secondary to FSGS, maintained on Prograf and prednisone. 2. Acute kidney injury, prerenal currently improved with IV fluids. Avoid aggressive hydration secondary to issues with severe volume overload and significant edema. 3. Urinary tract infection. Urine culture grew gram-negative bacilli, which was Klebsiella pneumonia. 4. History of Clostridium difficile colitis, status post fecal transplant. 5. Atrial fibrillation maintained on Eliquis with controlled ventricular response. PLAN: DC IV fluids. Patient can be discharged from nephrology standpoint and follow up as outpatient in about 1 to 2 weeks. SHERICE / LAURENCEN: [id number] /
--- NOTE | 2017-05-19 20:06 | P.DS ---
Providers Date of admission: 05/16/17 00:57 Expected date of discharge: 05/19/17 Attending physician: Luther Bailey Consults: 05/16/17 00:57 Consult Physician Routine Consulting Provider: Burt Kwok Consult Reason/Comments: known Do you want consulting provider notified?: Yes Consult Physician Routine Consulting Provider: Aubrey Tran Consult Reason/Comments: afib Do you want consulting provider notified?: Yes Consult Physician Urgent Consulting Provider: Pamella Diallo Consult Reason/Comments: arf Do you want consulting provider notified?: Yes 05/16/17 18:14 Consult Physician Routine Consulting Provider: Delfino Hutchins Consult Reason/Comments: renal failure/FSGS Do you want consulting provider notified?: Yes Primary care physician: [facility] Course: FINAL DIAGNOSES: -Acute severe urinary tract infection with urine culture positive for Klebsiella pneumoniae , with sepsis causing acute delirium on presentation, improving -acute kidney injury secondary to hypotension, hypoperfusion and acute renal failure -Troponin leak from hemodynamic mismatch, not acute myocardial infarction, from underlying sepsis., -Possible persistent atrial fibrillation. -severe psoriatic arthritis -Chronic congestive heart failure from systolic dysfunction, ejection fraction 30-35%. -Chronic hard of hearing. -Hyperlipidemia. -Essential hypertension. -Chronic kidney disease, focal segmental glomerulosclerosis -Chronic nephrotic syndrome. -Bilateral torn rotator cuff. HOSPTIAL COURSE: 77-year-old male who was admitted with acute episode of confusion found to be septic admitted for the same. Home medications reordered consults placed to nephrology, infectious disease, cardiology. Nephrology saw the patient found the patient to be in acute kidney injury on top of chronic kidney disease, also found to have a urinary tract infection for which he received antibiotic therapy , IV fluids, creatinine improved, urine has cleared up. 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 Cardiology evaluated the patient found the patient to be in mild congestive heart failure with bilateral pleural effusions, troponin elevation as well as atrial fib relation with rapid ventricular response. Echocardiogram done, medications adjusted, antibiotics recommended to continue. No RICK inhibitor due to renal function. Overall patient condition improved, mentation cleared up, urine cleared up and plan for chest pain and shortness of breath. Consultants agree patient is stable for discharge to home with home care. PHYSICAL EXAM: CARDIOVASCULAR: Irregular rhythm, moderate edema to bilateral lower extremities RESPIRATORY: Respiratory effort mildly increased, lung sounds diminished bilaterally. GI: Abdomen soft nontender liver and spleen not palpable MUSKULOSKELETAL: Evidence of severe psoriatic arthritis to bilateral hands. PSYCHIATRY: Alert and oriented 3, mood and affect normal. Patient was seen and examined by nurse practitioner Katy Boston in all elements of the case discussed with attending Dr. Bailey DISPOSITION: Discharge home to the care of his , home care agency. Patient Condition at Discharge: Serious Plan - Discharge Summary Discharge Rx Participant: No New Discharge Prescriptions: New Doxycycline Monohydrate [Monodox] 100 mg PO Q12HR #14 cap Continue Tamsulosin HCl [Flomax] 0.4 mg PO BID Ranitidine HCl [Zantac] 150 mg PO BID Leflunomide [Arava] 20 mg PO DAILY Ergocalciferol [Vitamin D2 (DRISDOL)] 50,000 units PO DEAL Propranolol LA [Inderal LA] 60 mg PO DAILY predniSONE 10 mg PO DAILY Atorvastatin [Lipitor] 40 mg PO HS [place]-3 Fatty Acids/Fish Oil [Fish Oil 1,000 mg Softgel] 1 cap PO DAILY Tacrolimus [Prograf] 1 mg PO DAILY Apixaban [Eliquis] 2.5 mg PO BID #60 tablet Gabapentin [Neurontin] 600 mg PO BID Isosorbide Mononitrate ER [Imdur] 30 mg PO DAILY #1 tab traMADol HCL [Ultram] 50 mg PO BID PRN PRN Reason: Pain Multivitamins, Thera [Multivitamin (formulary)] 1 tab PO DAILY Allopurinol [Zyloprim] 100 mg PO BID L.acidoph,Paracasei, B.lactis [Probiotic] 1 cap PO DAILY Diltiazem HCl [Diltiazem 24Hr ER] 120 mg PO DAILY Prevalite Powder 5.5 gm PO DAILY Calcium Carbonate/Vitamin D3 [Calcium 600-Vit D3 200 Tablet] 1 tab PO DAILY Discontinued Sod Phos Di, [place]/K Phos [place] [Phospha 250 Neutral Tablet] 250 mg PO BID Metolazone [Zaroxolyn] 5 mg PO BID Potassium Chloride ER [K-Dur 20] 20 meq PO HS Bumetanide [BUMEX] 2 mg PO BID Enalapril [Vasotec] 5 mg PO DAILY Discharge Medication List Ergocalciferol [Vitamin D2 (DRISDOL)] 50,000 units PO DEAL 01/16/14 [History] Leflunomide [Arava] 20 mg PO DAILY 01/16/14 [History] Ranitidine HCl [Zantac] 150 mg PO BID 01/16/14 [History] Tamsulosin HCl [Flomax] 0.4 mg PO BID 01/16/14 [History] Propranolol LA [Inderal LA] 60 mg PO DAILY 12/17/14 [History] predniSONE 10 mg PO DAILY 03/25/16 [History] Atorvastatin [Lipitor] 40 mg PO HS 04/18/16 [History] [place]-3 Fatty Acids/Fish Oil [Fish Oil 1,000 mg Softgel] 1 cap PO DAILY [History] Tacrolimus [Prograf] 1 mg PO DAILY 08/19/16 [History] Apixaban [Eliquis] 2.5 mg PO BID #60 tablet 08/23/16 [Rx] Gabapentin [Neurontin] 600 mg PO BID 09/04/16 [History] Isosorbide Mononitrate ER [Imdur] 30 mg PO DAILY #1 tab 09/10/16 [Rx] Allopurinol [Zyloprim] 100 mg PO BID 10/26/16 [History] L.acidoph,Paracasei, B.lactis [Probiotic] 1 cap PO DAILY 10/26/16 [History] Multivitamins, Thera [Multivitamin (formulary)] 1 tab PO DAILY 10/26/16 [History ] traMADol HCL [Ultram] 50 mg PO BID PRN 10/26/16 [History] Diltiazem HCl [Diltiazem 24Hr ER] 120 mg PO DAILY 04/27/17 [History] Prevalite Powder 5.5 gm PO DAILY 04/27/17 [History] Calcium Carbonate/Vitamin D3 [Calcium 600-Vit D3 200 Tablet] 1 tab PO DAILY 11/23 [History] Doxycycline Monohydrate [Monodox] 100 mg PO Q12HR #14 cap 05/18/17 [Rx] Follow up Appointment(s)/Referral(s): Clay Hall DO [Primary Care Provider] - 06/02/17 2:40 pm ( Previously scheduled appointment) Eric Bradford MD [STAFF PHYSICIAN] - 06/07/17 1:15 pm (Tuesday) [facility], [NON-STAFF] - Delfino Hutchins DO [STAFF PHYSICIAN] - 06/08/17 10:20 am (With Michelle HERMAN) Ambulatory/Diagnostic Orders: Basic Metabolic Panel [LAB.AMB] Location: Determined By Patient Complete Blood Count w/diff [LAB.AMB] Location: Determined By Patient Patient Instructions/Handouts: Potassium Content of Foods List (DC), Chronic Kidney Disease Diet (DC) Activity/Diet/Wound Care/Special Instructions: Low potassium/phosphorous diet Discharge Disposition: HOME WITH HOME HEALTH SERVICES
--- NOTE | 2017-05-19 22:34 | P.PN ---
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 Gill at [facility] on February 04. Patient apparently has not been feeling well for a week or more but did not want to be started on antibiotics. There was concern for urinary tract infection. Family state that he had altered mental status, fever and was not doing well with increased weakness at home and called EMS and patient was brought into [facility] emergency center. Chest x-ray shows mild heart failure without change from previous. Bilateral pleural effusions. Temperature 102.6, tachycardia, pulse ox 88%. Patient is not on home oxygen. White count was 17. Creatinine is 2.6, albumin 2.8. Urinalysis was cloudy, blood small, leukoesterase small, WBC 44, WBC clumps few. Influenza testing a and B were negative. Urine and blood cultures are status received. Patient was started on Unasyn and admitted to the selective care unit. Consults are in place for nephrology for acute kidney injury and cardiology for atrial fibrillation. patient does have chronic lower extremity edema which is increased recently. Feeling better again today. Objective - Vital Signs Vital signs: Vital Signs Temp 97.0 F L 05/19/17 12:00 Pulse 81 05/19/17 12:00 Resp 18 05/19/17 12:00 BP 141/76 05/19/17 12:00 Pulse Ox 94 L 05/19/17 04:00 Intake & Output 05/19/17 05/19/17 05/20/17 06:59 18:59 06:59 Intake Total 355 Output Total 201 1 Balance -201 354 Weight 104.5 kg Intake: Oral 355 Output: Urine 200 0 Stool 1 1 Other: Voiding Method Urinal Urinal # Voids 0 - Exam Gen: This is and OB 77-year-old male. He is sitting up in bed and appears to be comfortable. HEENT: Head is atraumatic, normocephalic. Pupils equal, round. Sclerae is anicteric. NECK: Supple. No JVD. No lymphadenopathy. No thyromegaly. LUNGS: bilateral crackles. No intercostal retractions. HEART: irregular rate and rhythm. systolic murmur. ABDOMEN: Soft. Bowel sounds are present. No masses. No tenderness. EXTREMITIES: 1+ bilateral pedal edemawith very mild erythema to the lower extremities.. No calf tenderness.dorsalis pedis +2 bilaterally. NEUROLOGICAL: Patient is awake, alert and oriented x3. - Labs CBC & Chem 7: 05/19/17 05:51 05/19/17 05:51 Labs: Abnormal Lab Results - Last 24 Hours (Table) 05/19/17 05/19/17 Range/Units 05:51 05:51 RBC 3.05 L (4.30-5.90) m/uL Hgb 9.2 L (13.0-17.5) gm/dL Hct 29.7 L (39.0-53.0) % RDW 15.6 H (11.5-15.5) % Lymphocytes # 0.5 L (1.0-4.8) k/uL BUN 118 H* (9-20) mg/dL Creatinine 2.80 H (0.66-1.25) mg/dL Glucose 105 H (74-99) mg/dL Microbiology - Last 24 Hours (Table) 05/16/17 11:04 Blood Culture - Preliminary Blood No Growth after 72 hours 05/15/17 23:10 Blood Culture - Preliminary Blood No Growth after 72 hours Laboratory Results WBC 6.6 k/uL (3.8-10.6) 05/19/17 05:51 RBC 3.05 m/uL (4.30-5.90) L 05/19/17 05:51 Hgb 9.2 gm/dL (13.0-17.5) L 05/19/17 05:51 Hct 29.7 % (39.0-53.0) L 05/19/17 05:51 MCV 97.3 fL (80.0-100.0) 05/19/17 05:51 MCH 30.1 pg (25.0-35.0) 05/19/17 05:51 MCHC 31.0 g/dL (31.0-37.0) 05/19/17 05:51 RDW 15.6 % (11.5-15.5) H 05/19/17 05:51 Plt Count 183 k/uL (150-450) 05/19/17 05:51 Neutrophils % 81 % 05/19/17 05:51 Lymphocytes % 8 % 05/19/17 05:51 Monocytes % 7 % 05/19/17 05:51 Eosinophils % 3 % 05/19/17 05:51 Basophils % 0 % 05/19/17 05:51 Neutrophils # 5.4 k/uL (1.3-7.7) 05/19/17 05:51 Lymphocytes # 0.5 k/uL (1.0-4.8) L 05/19/17 05:51 Monocytes # 0.5 k/uL (0-1.0) 05/19/17 05:51 Eosinophils # 0.2 k/uL (0-0.7) 05/19/17 05:51 Basophils # 0.0 k/uL (0-0.2) 05/19/17 05:51 Hypochromasia Slight 05/19/17 05:51 Anisocytosis Slight 05/15/17 23:10 Macrocytosis Slight 05/18/17 05:56 PT 10.0 sec (9.0-12.0) 05/15/17 23:10 INR 1.0 (<1.2) 05/15/17 23:10 APTT 22.3 sec (22.0-30.0) 05/15/17 23:10 Sodium 141 mmol/L (137-145) 05/19/17 05:51 Potassium 4.6 mmol/L (3.5-5.1) 05/19/17 05:51 Chloride 106 mmol/L (98-107) 05/19/17 05:51 Carbon Dioxide 27 mmol/L (22-30) 05/19/17 05:51 Anion Gap 8 mmol/L 05/19/17 05:51 BUN 118 mg/dL (9-20) H* 05/19/17 05:51 Creatinine 2.80 mg/dL (0.66-1.25) H 05/19/17 05:51 Est GFR (MDRD) Af Amer 27 (>60 ml/min/1.73 sqM) 05/19/17 05:51 Est GFR (MDRD) Non-Af 22 (>60 ml/min/1.73 sqM) 05/19/17 05:51 Glucose 105 mg/dL (74-99) H 05/19/17 05:51 Plasma Lactic Acid Jean [place] 1.2 mmol/L (0.7-2.0) 05/15/17 23:10 Calcium 8.4 mg/dL (8.4-10.2) 05/19/17 05:51 Phosphorus 4.7 mg/dL (2.5-4.5) H 05/15/17 23:10 Magnesium 1.5 mg/dL (1.6-2.3) L 05/15/17 23:10 Iron 43 ug/dL (65-175) L 05/18/17 05:56 TIBC 216 ug/dL (228-460) L 05/18/17 05:56 Iron Saturation 19.91 (15.00-50.00) 05/18/17 05:56 Ferritin 1091.0 ng/mL (22.0-322.0) H 05/18/17 05:56 Total Bilirubin 0.4 mg/dL (0.2-1.3) 05/15/17 23:10 AST 34 U/L (17-59) 05/15/17 23:10 ALT 35 U/L (21-72) 05/15/17 23:10 Alkaline Phosphatase 97 U/L (38-126) 05/15/17 23:10 Total Creatine Kinase 52 U/L (55-170) L 05/15/17 23:10 CK-MB (CK-2) 1.2 ng/mL (0.0-2.4) 05/15/17 23:10 CK-MB (CK-2) Rel Index 2.3 05/15/17 23:10 Troponin I 0.064 ng/mL (0.000-0.034) H* 05/15/17 23:10 Total Protein 6.1 g/dL (6.3-8.2) L 05/15/17 23:10 Albumin 2.8 g/dL (3.5-5.0) L 05/15/17 23:10 Urine Color Yellow 05/16/17 00:07 Urine Appearance Cloudy (Clear) 05/16/17 00:07 Urine pH 6.0 (5.0-8.0) 05/16/17 00:07 Ur Specific [place] 1.011 (1.001-1.035) 05/16/17 00:07 Urine Protein 3+ (Negative) H 05/16/17 00:07 Urine Glucose (UA) Negative (Negative) 05/16/17 00:07 Urine Ketones Negative (Negative) 05/16/17 00:07 Urine Blood Small (Negative) H 05/16/17 00:07 Urine Nitrite Negative (Negative) 05/16/17 00:07 Urine Bilirubin Negative (Negative) 05/16/17 00:07 Urine Urobilinogen <2.0 mg/dL (<2.0) 05/16/17 00:07 Ur Leukocyte Esterase Small (Negative) H 05/16/17 00:07 Urine WBC 44 /hpf (0-5) H 05/16/17 00:07 Urine WBC Clumps Few /hpf (None) H 05/16/17 00:07 Urine Bacteria Many /hpf (None) H 05/16/17 00:07 Influenza Type A RNA Not Detected (Not Detectd) 05/15/17 23:10 Influenza Type B (PCR) Not Detected (Not Detectd) 05/15/17 23:10 Microbiology 05/16/17 11:04 Blood Blood Culture - Preliminary No Growth after 72 hours 05/15/17 23:10 Blood Blood Culture - Preliminary No Growth after 72 hours 05/16/17 00:07 Urine,Catheterized Urine Culture - Final Klebsiella pneumoniae Assessment and Plan (1) UTI (urinary tract infection) Narrative/Plan: 77-year-old gentleman who is quite debilitated from his rheumatoid arthritis had a sudden onset of high-grade fever with alteration of his mental status. Mental status is now improving as his fever is improved. At admission there was a markedly abnormal urinalysis and urine culture currently is pending awaiting the final results. With his history of C. diff colitis and fecal transplantation and overall goal is to limit antimicrobial therapy as much as possible. The patient presents with sepsis with high-grade fever leukocytosis and evidence of pyuria. Patient is now feeling better with hydration and antibiotic therapy in the form of Unasyn. This is been chosen because of the prior Enterococcus faecalis isolate from his urine. Urine culture is now available and klebsiella pneumoniae has been isolated that is susceptible to doxycycline. Thus Unasyn was discontinued doxycycline is started and prescription is sent to his pharmacy with anticipation of his discharge today. Preliminary data show evidence of the gram-negative bacilli. Fortunately he has had a marked improvement of his status with no evidence of diarrhea. Again great concerns because of his history of C. diff in need of fecal transplantation. Continue probiotic therapy. discussed with and she understands plan and need to contact office if diarrhea occurs. Status: Acute Code(s): N39.0 - URINARY TRACT INFECTION, SITE NOT SPECIFIED SNOMED Code(s): 15778997 (2) Sepsis Status: Acute Code(s): A41.9 - SEPSIS, UNSPECIFIED ORGANISM SNOMED Code(s): 43112149
--- NOTE | 2017-05-21 06:48 | DS ---
DISCHARGE SUMMARY DATE OF DISCHARGE: 05/19/17 ATTENDING NOTE: Patient seen and examined by me. Discussed with my nurse practitioner, Ms. Boston. Patient admitted with acute UTI with sepsis causing acute delirium from Klebsiella pneumoniae. Doing much better. Care was discussed with the patient and . The patient will be discharged on doxycycline 100 mg p.o. q.12, 14 tablets. Lungs are clear. Cardiovascular: First and second sounds normal. DISPOSITION: Home. On exam, lungs are clear. Cardiovascular: First and second sounds normal. Psych: AO x3. Discussion and discharge planning more than 35 minutes. MMODL / IJN: [id number] /
[2017-05-22] MEDS ORDERED: ERGOCALCIFEROL 50,000 UNIT CAP PO SCH (12:00)
== END 2017-05-19 19:13 | disposition home health service (06) | DRG 871 ==
LOC: EC 23:03 → 6SEL 05-16 00:57
PROVIDERS: ADMIT Hospitalist; ATTEND Hospitalist
DX: A41.59 Other Gram-negative sepsis (principal); I50.23 Acute on chronic systolic (congestive) heart failure; N17.0 Acute kidney failure with tubular necrosis; G93.41 Metabolic encephalopathy; I48.1 Persistent atrial fibrillation; E87.5 Hyperkalemia; E83.42 Hypomagnesemia; N18.4 Chronic kidney disease, stage 4 (severe); I48.2 Chronic atrial fibrillation; E86.0 Dehydration; L40.50 Arthropathic psoriasis, unspecified; N17.9 Acute kidney failure, unspecified; I13.0 Hypertensive heart and chronic kidney disease with heart failure and stage 1 through stage 4 chronic kidney disease, or unspecified chronic kidney disease; N39.0 Urinary tract infection, site not specified; G43.909 Migraine, unspecified, not intractable, without status migrainosus; D63.1 Anemia in chronic kidney disease; R65.20 Severe sepsis without septic shock; E66.9 Obesity, unspecified; E78.5 Hyperlipidemia, unspecified; H91.90 Unspecified hearing loss, unspecified ear; I25.10 Atherosclerotic heart disease of native coronary artery without angina pectoris; M06.9 Rheumatoid arthritis, unspecified; M19.90 Unspecified osteoarthritis, unspecified site; G89.29 Other chronic pain; M54.9 Dorsalgia, unspecified; R73.03 Prediabetes; M75.102 Unspecified rotator cuff tear or rupture of left shoulder, not specified as traumatic; M75.101 Unspecified rotator cuff tear or rupture of right shoulder, not specified as traumatic; R74.8 Abnormal levels of other serum enzymes; Z79.01 Long term (current) use of anticoagulants; Z79.52 Long term (current) use of systemic steroids; Z79.899 Other long term (current) drug therapy; Z88.1 Allergy status to other antibiotic agents; Z88.8 Allergy status to other drugs, medicaments and biological substances; Z85.828 Personal history of other malignant neoplasm of skin; Z86.73 Personal history of transient ischemic attack (TIA), and cerebral infarction without residual deficits; Z98.1 Arthrodesis status; Z86.19 Personal history of other infectious and parasitic diseases; Z68.35 Body mass index [BMI] 35.0-35.9, adult; Z82.49 Family history of ischemic heart disease and other diseases of the circulatory system
CPT/HCPCS: 36415; 71045; 80048; 80053; 80197; 81001; 82550; 82553; 82728; 83540; 83550; 83605; 83735; 84100; 84484; 85025; 85610; 85730; 87040; 87077; 87086; 87186; 87502; 93005; 93306; 96365; 96375; 99285

== ENCOUNTER 2017-07-03 14:58 | Inpatient (IN) | payer MEDICARE ==
[2017-07-03] MEDS ORDERED: SODIUM CHLORIDE 0.9% 1,000 ML IV STA (15:13)
[2017-07-03] MEDS ORDERED: SODIUM CHLORIDE 0.9% 500 ML IV STA (15:13)
--- NOTE | 2017-07-03 15:18 | ED ---
Weakness HPI - General Stated complaint: Weakness Time Seen by Provider: 07/03/17 15:11 Source: patient, EMS, RN notes reviewed Mode of arrival: EMS - History of Present Illness Initial comments: This is a 77-year-old male history of multiple medical problems was brought in by EMS at request of the patient's for 2 days of weakness lethargy urinary frequency decreased oral intake. Patient was noted be short of breath though he didn't complain of anything with respective shortness of breath. Pulse oximetry of 85% room air was up to 90-95 on oxygen. He did ever recent urinary tract infection. He has chronic pedal edema. He was found upon arrival have an oral temperature 101.2 this is while the patient was mouth breathing. MD Complaint: generalized weakness, lack of energy, difficulty walking - Related Data Home Medications Medication Instructions Recorded Confirmed Ergocalciferol [Vitamin D2 50,000 units PO DEAL 01/16/14 07/03/17 (DRISDOL)] Leflunomide [Arava] 20 mg PO W/SUPPER 01/16/14 07/03/17 Ranitidine HCl [Zantac] 150 mg PO BID 01/16/14 07/03/17 Tamsulosin HCl [Flomax] 0.4 mg PO BID 01/16/14 07/03/17 Propranolol LA [Inderal LA] 60 mg PO DAILY 12/17/14 07/03/17 predniSONE 10 mg PO W/SUPPER 03/25/16 07/03/17 Atorvastatin [Lipitor] 40 mg PO HS 04/18/16 07/03/17 [place]-3 Fatty Acids/Fish Oil [Fish 1 cap PO DAILY 04/18/16 07/03/17 Oil 1,000 mg Softgel] Tacrolimus [Prograf] 1 mg PO DAILY 08/19/16 07/03/17 Gabapentin [Neurontin] 600 mg PO BID 09/04/16 07/03/17 Allopurinol [Zyloprim] 200 mg PO W/SUPPER 10/26/16 07/03/17 L.acidoph,Paracasei, B.lactis 1 cap PO DAILY 10/26/16 07/03/17 [Probiotic] Multivitamins, Thera [Multivitamin 1 tab PO DAILY 10/26/16 07/03/17 (formulary)] traMADol HCL [Ultram] 50 mg PO BID PRN 10/26/16 07/03/17 Diltiazem HCl [Diltiazem 24Hr ER] 120 mg PO W/SUPPER 04/27/17 07/03/17 Calcium Carbonate/Vitamin D3 1 tab PO DAILY 05/15/17 07/03/17 [Calcium 600-Vit D3 200 Tablet] Apixaban [Eliquis] 2.5 mg PO BID 07/03/17 07/03/17 Bumetanide 2 mg PO BID@0800,1600 07/03/17 07/03/17 Enalapril [Vasotec] 5 mg PO DAILY 07/03/17 07/03/17 Metolazone [Zaroxolyn] 5 mg PO MOWEFR 07/03/17 07/03/17 Procrit (Unknown Dose) 1 dose INJ Q7D 07/03/17 07/03/17 Previous Rx's Medication Instructions Recorded Isosorbide Mononitrate ER [Imdur] 30 mg PO DAILY #1 tab 09/10/16 Allergies Allergy/AdvReac Type Severity Reaction Status Date / Time sumatriptan [From Imitrex] Allergy Swelling Verified 07/03/17 15:19 sumatriptan succinate Allergy Swelling Verified 07/03/17 15:19 [From Imitrex] cephalexin [From Keflex] AdvReac Diarrhea Verified 07/03/17 15:19 Review of Systems ROS Statement: Those systems with pertinent positive or pertinent negative responses have been documented in the HPI. ROS Other: All systems not noted in ROS Statement are negative. Past Medical History Past Medical History: Atrial Fibrillation, Cancer, Heart Failure, Hearing Disorder / Deafness, Hyperlipidemia, Hypertension, Musculoskeletal Disorder, Renal Disease Additional Past Medical History / Comment(s): HX C-DIFF 09-04-16. skin ca. psoriatic arthritis. uti, nephrotic syndrome. chronic back pain. DENIES GOUT. PAST HX OF MIGRAINES. HX anemia,iron infusion. patient states he is pre- diabetic. EDEMA .edward torn rotator cuffs(had a previous sx on rt side but injured it again). A-Fib diagnosis March 2017; pt. responded to oral medication. skin cancer on head History of Any Multi-Drug Resistant Organisms: None Reported Past Surgical History: Back Surgery, Hernia Repair, Orthopedic Surgery Additional Past Surgical History / Comment(s): L4-5 LUMBAR FUSION-(total of 4 back surguries)NECK FUSION. RT ROTATOR CUFF," kidney bx-neg". Surgical scar from skin cancer/surgery on right side of head. MULT PAIN PROC, LAST 05/12/16. Fecal transfusion at [facility] for C-Diff in November 2016 Past Anesthesia/Blood Transfusion Reactions: No Reported Reaction Smoking Status: Never smoker - Past Family History Father Additional Family Medical History / Comment(s): as a results of burn injuries in work related accident Mother Additional Family Medical History / Comment(s): at age 84 from heart problems Sister(s) Family Medical History: Cancer Additional Family Medical History / Comment(s): mother-- HTN. brother-- Diabetes, kidney problems General Exam - General Exam Comments Initial Comments: This a well-developed well-nourished awake but lethargic male General appearance: alert, in no apparent distress Head exam: Present: atraumatic, normocephalic, normal inspection Eye exam: Present: normal appearance, PERRL, EOMI. Absent: scleral icterus, conjunctival injection, periorbital swelling ENT exam: Present: mucous membranes dry Neck exam: Present: normal inspection. Absent: tenderness, meningismus, lymphadenopathy Respiratory exam: Present: rales, decreased breath sounds Cardiovascular Exam: Present: normal rhythm, tachycardia, normal heart sounds. Absent: systolic murmur, diastolic murmur, rubs, gallop, clicks GI/Abdominal exam: Present: soft, normal bowel sounds. Absent: distended, tenderness, guarding, rebound, rigid exam: Present: other (Scrotal edema) Extremities exam: Present: normal inspection, full ROM, normal capillary refill , pedal edema. Absent: tenderness, joint swelling, calf tenderness Back exam: Present: normal inspection Neurological exam: Present: alert, oriented X3, CN II-XII intact. Absent: motor sensory deficit Psychiatric exam: Present: flat affect Skin exam: Present: warm, dry, intact, normal color. Absent: rash Course Vital Signs 07/03/17 15:00 Temperature 101.3 F H Pulse Rate 122 H Respiratory 24 Rate Blood Pressure 158/98 O2 Sat by Pulse 97 Oximetry EKG Findings - EKG Results: EKG: interpreted by VIANNEY (Y complex tachycardia rate was 120 QRS 120 daily since QTC of 366/517 was here fascicular block right bundle-branch block possible inferior infarct T-wave abnormality is nonspecific. Some artifact is present.) Medical Decision Making - Medical Decision Making I did discuss findings the patient and with the family member was present as well as with Dr. Bailey. Patient will be admitted for further evaluation pneumonitis as not ruled out urine cultures are pending. Patient did not have any chest pain is of elevated troponin but he also has chronic renal failure. He will be admitted. - Lab Data Result diagrams: 07/03/17 16:00 07/03/17 16:00 Lab Results 07/03/17 07/03/17 07/03/17 Range/Units 16:00 16:00 16:00 WBC 8.4 (3.8-10.6) k/uL RBC 3.80 L (4.30-5.90) m/uL Hgb 11.4 L (13.0-17.5) gm/dL Hct 37.6 L (39.0-53.0) % MCV 99.2 (80.0-100.0) fL MCH 30.0 (25.0-35.0) pg MCHC 30.3 L (31.0-37.0) g/dL RDW 15.7 H (11.5-15.5) % Plt Count 132 L (150-450) k/uL Neutrophils % 84 % Lymphocytes % 5 % Monocytes % 8 % Eosinophils % 1 % Basophils % 1 % Neutrophils # 7.0 (1.3-7.7) k/uL Lymphocytes # 0.4 L (1.0-4.8) k/uL Monocytes # 0.6 (0-1.0) k/uL Eosinophils # 0.1 (0-0.7) k/uL Basophils # 0.1 (0-0.2) k/uL Macrocytosis Slight PT (9.0-12.0) sec INR (<1.2) APTT (22.0-30.0) sec Sodium 140 (137-145) mmol/L Potassium 3.9 (3.5-5.1) mmol/L Chloride 102 (98-107) mmol/L Carbon Dioxide 33 H (22-30) mmol/L Anion Gap 5 mmol/L BUN 96 H* (9-20) mg/dL Creatinine 2.30 H (0.66-1.25) mg/dL Est GFR (MDRD) Af Amer 34 (>60 ml/min/1.73 sqM) Est GFR (MDRD) Non-Af 28 (>60 ml/min/1.73 sqM) Glucose 120 H (74-99) mg/dL Plasma Lactic Acid Jean [place] (0.7-2.0) mmol/L Calcium 8.9 (8.4-10.2) mg/dL Magnesium 1.9 (1.6-2.3) mg/dL Total Bilirubin 0.4 (0.2-1.3) mg/dL AST 29 (17-59) U/L ALT 22 (21-72) U/L Alkaline Phosphatase 84 (38-126) U/L Total Creatine Kinase 41 L (55-170) U/L CK-MB (CK-2) 0.6 (0.0-2.4) ng/mL CK-MB (CK-2) Rel Index 1.5 Troponin I 0.132 H* (0.000-0.034) ng/mL NT-Pro-B Natriuret Pep pg/mL Total Protein 5.4 L (6.3-8.2) g/dL Albumin 2.4 L (3.5-5.0) g/dL Urine Color Urine Appearance (Clear) Urine pH (5.0-8.0) Ur Specific [place] (1.001-1.035) Urine Protein (Negative) Urine Glucose (UA) (Negative) Urine Ketones (Negative) Urine Blood (Negative) Urine Nitrite (Negative) Urine Bilirubin (Negative) Urine Urobilinogen (<2.0) mg/dL Ur Leukocyte Esterase (Negative) Urine RBC (0-5) /hpf Urine WBC (0-5) /hpf Ur Squamous Epith Cells (0-4) /hpf Urine Bacteria (None) /hpf Hyaline Casts (0-2) /lpf Urine Mucus (None) /hpf 07/03/17 07/03/17 07/03/17 Range/Units 16:00 16:00 16:00 WBC (3.8-10.6) k/uL RBC (4.30-5.90) m/uL Hgb (13.0-17.5) gm/dL Hct (39.0-53.0) % MCV (80.0-100.0) fL MCH (25.0-35.0) pg MCHC (31.0-37.0) g/dL RDW (11.5-15.5) % Plt Count (150-450) k/uL Neutrophils % % Lymphocytes % % Monocytes % % Eosinophils % % Basophils % % Neutrophils # (1.3-7.7) k/uL Lymphocytes # (1.0-4.8) k/uL Monocytes # (0-1.0) k/uL Eosinophils # (0-0.7) k/uL Basophils # (0-0.2) k/uL Macrocytosis PT 9.9 (9.0-12.0) sec INR 1.0 (<1.2) APTT 24.1 (22.0-30.0) sec Sodium (137-145) mmol/L Potassium (3.5-5.1) mmol/L Chloride (98-107) mmol/L Carbon Dioxide (22-30) mmol/L Anion Gap mmol/L BUN (9-20) mg/dL Creatinine (0.66-1.25) mg/dL Est GFR (MDRD) Af Amer (>60 ml/min/1.73 sqM) Est GFR (MDRD) Non-Af (>60 ml/min/1.73 sqM) Glucose (74-99) mg/dL Plasma Lactic Acid [place] 0.9 (0.7-2.0) mmol/L Calcium (8.4-10.2) mg/dL Magnesium (1.6-2.3) mg/dL Total Bilirubin (0.2-1.3) mg/dL AST (17-59) U/L ALT (21-72) U/L Alkaline Phosphatase (38-126) U/L Total Creatine Kinase (55-170) U/L CK-MB (CK-2) (0.0-2.4) ng/mL CK-MB (CK-2) Rel Index Troponin I (0.000-0.034) ng/mL NT-Pro-B Natriuret Pep 38415 pg/mL Total Protein (6.3-8.2) g/dL Albumin (3.5-5.0) g/dL Urine Color Urine Appearance (Clear) Urine pH (5.0-8.0) Ur Specific [place] (1.001-1.035) Urine Protein (Negative) Urine Glucose (UA) (Negative) Urine Ketones (Negative) Urine Blood (Negative) Urine Nitrite (Negative) Urine Bilirubin (Negative) Urine Urobilinogen (<2.0) mg/dL Ur Leukocyte Esterase (Negative) Urine RBC (0-5) /hpf Urine WBC (0-5) /hpf Ur Squamous Epith Cells (0-4) /hpf Urine Bacteria (None) /hpf Hyaline Casts (0-2) /lpf Urine Mucus (None) /hpf 07/03/17 Range/Units 16:49 WBC (3.8-10.6) k/uL RBC (4.30-5.90) m/uL Hgb (13.0-17.5) gm/dL Hct (39.0-53.0) % MCV (80.0-100.0) fL MCH (25.0-35.0) pg MCHC (31.0-37.0) g/dL RDW (11.5-15.5) % Plt Count (150-450) k/uL Neutrophils % % Lymphocytes % % Monocytes % % Eosinophils % % Basophils % % Neutrophils # (1.3-7.7) k/uL Lymphocytes # (1.0-4.8) k/uL Monocytes # (0-1.0) k/uL Eosinophils # (0-0.7) k/uL Basophils # (0-0.2) k/uL Macrocytosis PT (9.0-12.0) sec INR (<1.2) APTT (22.0-30.0) sec Sodium (137-145) mmol/L Potassium (3.5-5.1) mmol/L Chloride (98-107) mmol/L Carbon Dioxide (22-30) mmol/L Anion Gap mmol/L BUN (9-20) mg/dL Creatinine (0.66-1.25) mg/dL Est GFR (MDRD) Af Amer (>60 ml/min/1.73 sqM) Est GFR (MDRD) Non-Af (>60 ml/min/1.73 sqM) Glucose (74-99) mg/dL Plasma Lactic Acid [place] (0.7-2.0) mmol/L Calcium (8.4-10.2) mg/dL Magnesium (1.6-2.3) mg/dL Total Bilirubin (0.2-1.3) mg/dL AST (17-59) U/L ALT (21-72) U/L Alkaline Phosphatase (38-126) U/L Total Creatine Kinase (55-170) U/L CK-MB (CK-2) (0.0-2.4) ng/mL CK-MB (CK-2) Rel Index Troponin I (0.000-0.034) ng/mL NT-Pro-B Natriuret Pep pg/mL Total Protein (6.3-8.2) g/dL Albumin (3.5-5.0) g/dL Urine Color Yellow Urine Appearance Clear (Clear) Urine pH 6.0 (5.0-8.0) Ur Specific [place] 1.009 (1.001-1.035) Urine Protein 3+ H (Negative) Urine Glucose (UA) Negative (Negative) Urine Ketones Negative (Negative) Urine Blood Moderate H (Negative) Urine Nitrite Negative (Negative) Urine Bilirubin Negative (Negative) Urine Urobilinogen <2.0 (<2.0) mg/dL Ur Leukocyte Esterase Small H (Negative) Urine RBC 75 H (0-5) /hpf Urine WBC 26 H (0-5) /hpf Ur Squamous Epith Cells <1 (0-4) /hpf Urine Bacteria Many H (None) /hpf Hyaline Casts 1 (0-2) /lpf Urine Mucus Rare H (None) /hpf - Radiology Data Radiology results: report reviewed (I did review the imaging CT of the brain shows no acute findings x-ray of the chest shows increased interstitial markings.), image reviewed Disposition Clinical Impression: CHF (congestive heart failure), Chronic renal failure, Febrile illness, Failure to thrive Disposition: ADMITTED IP TO THIS [facility] Condition: Stable Referrals: Clay Hall DO [Primary Care Provider] - 1-2 days
[2017-07-03 16:29] LABS: Basophils # (A) 0.1 k/uL (0-0.2); Basophils % (A) 1 %; Eosinophils # (A) 0.1 k/uL (0-0.7); Eosinophils % (A) 1 %; HCT 37.6 % (39.0-53.0); HGB 11.4 gm/dL (13.0-17.5); Lymphocytes # (A) 0.4 k/uL (1.0-4.8); Lymphocytes % (A) 5 %; MCHC 30.3 g/dL (31.0-37.0); MCV 99.2 fL (80.0-100.0); Macrocytosis Slight; Mean Platelet Volume 7.1; Monocytes # (A) 0.6 k/uL (0-1.0); Monocytes % (A) 8 %; Neutrophils % (A) 84 %; Platelet Count 132 k/uL (150-450); RDW 15.7 % (11.5-15.5); WBC 8.4 k/uL (3.8-10.6)
--- NOTE | 2017-07-03 16:36 | XR ---
EXAMINATION TYPE: XR chest 2V DATE OF EXAM: 07/03/2017 COMPARISON: 05/16/2017 HISTORY: Weakness TECHNIQUE: Frontal and lateral views of the chest are obtained. FINDINGS: There is a diffuse interstitial reticular pattern throughout the lungs with slight blurrin g of the right hemidiaphragm. This is more pronounced than on the prior exam. Probable esophageal etienne nt and postsurgical changes of the cervical spine are noted. Cardiac silhouette is upper limits of no rmal. Costophrenic angles are likely blunted by copious overlying soft tissues rather than pleural ef fusions. No pneumothorax. Osseous structures appear intact. IMPRESSION: Diffuse reticular interstitial opacity may represent interstitial pulmonary edema and ca rdiogenic or noncardiogenic fluid overload or atypical pneumonia.
[2017-07-03 16:38] LABS: Albumin 2.4 g/dL (3.5-5.0); Calcium 8.9 mg/dL (8.4-10.2); Potassium 3.9 mmol/L (3.5-5.1); Total Bilirubin 0.4 mg/dL (0.2-1.3); Total Protein 5.4 g/dL (6.3-8.2)
[2017-07-03 16:39] LABS: Partial Thromboplastin Time 24.1 sec (22.0-30.0)
[2017-07-03 16:41] LABS: Prothrombin Time 9.9 sec (9.0-12.0)
--- NOTE | 2017-07-03 16:44 | CT ---
EXAMINATION TYPE: CT brain wo con DATE OF EXAM: 07/03/2017 COMPARISON: 08/19/2016 HISTORY: slurred speech and weakness CT DLP: 1737.9 mGycm Automated exposure control for dose reduction was used. FINDINGS: Blurring of the chakraborty-white junction is suspected within the right temporoparietal region in the water shed area on series 6 image 30 this may represent a subacute infarct. Other areas of hypointensity ar e scattered throughout the subcortical and periventricular white matter. Prominent perivascular space versus old lacunar injury seen at the level of the inferior basal ganglia on the right on series 6 i mage 26. No acute intracranial hemorrhage. There is symmetric prominence of the peripheral sulci and ventricular system compatible with age-related volume loss. Calvarium is intact. Left frontal sinus i s hypoplastic. Scant mucosal thickening is seen dependently within the sphenoid sinus. Partial opacif ication of the bilateral mastoid air cells is seen, right greater than left. Incidental note of left partial cerumen impaction in the external auditory canal. IMPRESSION: 1. BLURRING OF THE CHAKRABORTY-WHITE JUNCTION IN THE WATERSHED AREA OF THE RIGHT TEMPOROPARIETAL REGION MAY REPRESENT SUBACUTE INFARCT. MR COULD BE PERFORMED FOR FURTHER EVALUATION. 2. MODERATE BURDEN NONSPECIFIC WHITE MATTER CHANGE AND AGE-RELATED VOLUME LOSS.
[2017-07-03 17:02] LABS: Creatine Kinase MB 0.6 ng/mL (0.0-2.4)
[2017-07-03 17:05] LABS: Appearance,Urine Clear (Clear); Bacteria,Urine Many /hpf; Bilirubin,Urine Negative (Negative); Blood,Urine Moderate (Negative); Color,Urine Yellow; Glucose,Urine (UA) Negative (Negative); Hyaline Casts,Urine 1 /lpf (0-2); Ketones,Urine Negative (Negative); Leukocyte Esterase,Urine Small (Negative); Mucus,Urine Rare /hpf; Protein,Urine 3+ (Negative); RBC,Urine 75 /hpf (0-5); Specific Gravity,Urine 1.009 (1.001-1.035); Squamous Epithelial Cell,Urine <1 /hpf (0-4); Urobilinogen,Urine <2.0 mg/dL (<2.0); WBC,Urine 26 /hpf (0-5)
[2017-07-03 17:07] LABS: Troponin I 0.132 ng/mL (0.000-0.034)
[2017-07-03] MEDS ORDERED: NALOXONE 0.4 MG/ML 1 ML VIAL IV PRN (17:34)
[2017-07-03] MEDS ORDERED: ACETAMINOPHEN TAB 325 MG TAB PO PRN (17:34)
[2017-07-03] MEDS ORDERED: FUROSEMIDE 10 MG/ML 4 ML VIAL IV STA (17:38)
[2017-07-03] MEDS: SODIUM CHLORIDE 0.9% 1,000 ML IV SCH (18:14)
[2017-07-03] MEDS ORDERED: DOXYCYCLINE 50 MG CAP PO SCH (21:00)
[2017-07-03] MEDS ORDERED: FAMOTIDINE 20 MG TAB PO SCH (21:00)
[2017-07-03] MEDS: APIXABAN 2.5 MG TABLET PO SCH (22:10)
[2017-07-03] MEDS: ATORVASTATIN 40 MG TAB PO SCH (22:10)
[2017-07-03] MEDS: FAMOTIDINE 20 MG TAB PO SCH (22:11)
[2017-07-03] MEDS: GABAPENTIN 300 MG CAP PO SCH (22:12)
[2017-07-03] MEDS: TAMSULOSIN 0.4 MG CAP.ER.24H PO SCH (22:26)
[2017-07-04] MEDS ORDERED: BUMETANIDE 1 MG TAB PO SCH (08:00)
[2017-07-04] MEDS ORDERED: NON-FORMULARY DRUG (Omega-3 Fatty Acids/Fish Oil [Fish Oil 1,000 Mg Softgel] 1 CAP) PO SCH (09:00)
[2017-07-04] MEDS ORDERED: PROPRANOLOL LA 60 MG CAP.SA.24H PO SCH (09:00)
[2017-07-04] MEDS ORDERED: ACETAMINOPHEN SUPPOSITORY 650 MG SUPP RECTAL PRN (09:13)
[2017-07-04] MEDS: AMPICILLIN-SULBACTAM 3 GM in SODIUM CHLORIDE 0.9% 100 ML IVPB SCH ×2 (09:14→22:30)
--- NOTE | 2017-07-04 09:43 | P.NPCON ---
History of Present Illness - Reason for Consult acute renal failure - History of Present Illness Reason for consultation: Acute kidney injury on chronic kidney disease History of present illness: Patient is a 77-year-old male seen in renal consultation for acute kidney injury on chronic kidney disease. 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 His creatinine was 2.3 on admission yesterday. Patient presented to the hospital due to generalized weakness. The patient is currently not a very reliable historian but her is present at bedside provides the history. According to the she went to [employer] 4. hour and a half and when she returned the patient was extremely weak and not behaving his usual self. He was subsequently brought to the hospital. He is currently nothing by mouth as he failed swallow eval. He was noted to have a temperature of 101.2F. He did have a recent UTI. He also has history of diastolic CHF for which he is maintained on Bumex and metolazone as an outpatient. Patient's currently resting in bed. His blood pressures have been stable. Again he is quite confused and somewhat lethargic appearing. He is currently maintained on IV Unasyn. Vital signs are stable. General: The patient appeared well nourished and normally developed. HEENT: Head exam is unremarkable. Neck is without jugular venous distension. LUNGS: Lungs are clear to auscultation and percussion. Breath sounds decreased. HEART: Rate and Rhythm are regular. First and second heart sounds normal. No murmurs, rubs or gallops. ABDOMEN: Abdominal exam reveals normal bowel sounds. Non-tender and non- distended. No evidence of peritonitis. EXTREMITITES: 1+ edema. Past Medical History Past Medical History: Atrial Fibrillation, Cancer, Heart Failure, Hearing Disorder / Deafness, Hyperlipidemia, Hypertension, Musculoskeletal Disorder, Renal Disease Additional Past Medical History / Comment(s): HX C-DIFF 09-04-16. skin ca. psoriatic arthritis. uti, nephrotic syndrome. chronic back pain. DENIES GOUT. PAST HX OF MIGRAINES. HX anemia,iron infusion. patient states he is pre- diabetic. EDEMA .edward torn rotator cuffs(had a previous sx on rt side but injured it again). A-Fib diagnosis March 2017; pt. responded to oral medication. skin cancer on head History of Any Multi-Drug Resistant Organisms: None Reported Date of last positivie culture/infection: 09-04-16 MDRO Source:: c-diff Past Surgical History: Back Surgery, Hernia Repair, Orthopedic Surgery Additional Past Surgical History / Comment(s): L4-5 LUMBAR FUSION-(total of 4 back surguries)NECK FUSION. RT ROTATOR CUFF," kidney bx-neg". Surgical scar from skin cancer/surgery on right side of head. MULT PAIN PROC, LAST 05/12/16. Fecal transfusion at [facility] for C-Diff in November 2016 Past Anesthesia/Blood Transfusion Reactions: No Reported Reaction Past Psychological History: No Psychological Hx Reported Additional Psychological History / Comment(s): lives in the family home with his . 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 No experience. No international travel. No animal exposures. No ill contacts. Denies any significant tobacco or alcohol use. No recreational drug use. Smoking Status: Never smoker Smoking Status: Never smoker Past Alcohol Use History: None Reported Past Drug Use History: None Reported - Past Family History Father Additional Family Medical History / Comment(s): as a results of burn injuries in work related accident Mother Additional Family Medical History / Comment(s): at age 84 from heart problems Sister(s) Family Medical History: Cancer Additional Family Medical History / Comment(s): mother-- HTN. brother-- Diabetes, kidney problems Medications and Allergies Home Medications Medication Instructions Recorded Confirmed Type Ergocalciferol [Vitamin D2 50,000 units PO DEAL 01/16/14 07/03/17 History (DRISDOL)] Leflunomide [Arava] 20 mg PO W/SUPPER 01/16/14 07/03/17 History Ranitidine HCl [Zantac] 150 mg PO BID 01/16/14 07/03/17 History Tamsulosin HCl [Flomax] 0.4 mg PO BID 01/16/14 07/03/17 History Propranolol LA [Inderal LA] 60 mg PO DAILY 12/17/14 07/03/17 History predniSONE 10 mg PO W/SUPPER 03/25/16 07/03/17 History Atorvastatin [Lipitor] 40 mg PO HS 04/18/16 07/03/17 History [place]-3 Fatty Acids/Fish Oil [Fish 1 cap PO DAILY 04/18/16 07/03/17 History Oil 1,000 mg Softgel] Tacrolimus [Prograf] 1 mg PO DAILY 08/19/16 07/03/17 History Gabapentin [Neurontin] 600 mg PO BID 09/04/16 07/03/17 History Isosorbide Mononitrate ER [Imdur] 30 mg PO DAILY #1 tab 09/10/16 07/03/17 Rx Allopurinol [Zyloprim] 200 mg PO W/SUPPER 10/26/16 07/03/17 History L.acidoph,Paracasei, B.lactis 1 cap PO DAILY 10/26/16 07/03/17 History [Probiotic] Multivitamins, Thera [Multivitamin 1 tab PO DAILY 10/26/16 07/03/17 History (formulary)] traMADol HCL [Ultram] 50 mg PO BID PRN 10/26/16 07/03/17 History Diltiazem HCl [Diltiazem 24Hr ER] 120 mg PO W/SUPPER 04/27/17 07/03/17 History Calcium Carbonate/Vitamin D3 1 tab PO DAILY 05/15/17 07/03/17 History [Calcium 600-Vit D3 200 Tablet] Apixaban [Eliquis] 2.5 mg PO BID 07/03/17 07/03/17 History Bumetanide 2 mg PO BID@0800,1600 07/03/17 07/03/17 History Enalapril [Vasotec] 5 mg PO DAILY 07/03/17 07/03/17 History Metolazone [Zaroxolyn] 5 mg PO MOWEFR 07/03/17 07/03/17 History Procrit (Unknown Dose) 1 dose INJ Q7D 07/03/17 07/03/17 History Allergies Allergy/AdvReac Type Severity Reaction Status Date / Time sumatriptan [From Imitrex] Allergy Swelling Verified 07/03/17 15:19 sumatriptan succinate Allergy Swelling Verified 07/03/17 15:19 [From Imitrex] cephalexin [From Keflex] AdvReac Diarrhea Verified 07/03/17 15:19 Physical Exam Vitals: Vital Signs Temp Pulse Pulse Resp BP BP Pulse Ox 07/04/17 02:45 99.5 F 104 H 20 137/97 92 L 07/04/17 01:41 115 H 20 145/92 97 07/04/17 00:27 83 20 129/84 97 07/03/17 23:13 111 H 20 117/72 98 07/03/17 22:12 106 H 20 96/66 97 07/03/17 21:00 98.4 F 108 H 20 114/77 97 07/03/17 20:35 84 20 103/78 98 07/03/17 19:13 83 20 110/68 97 07/03/17 18:15 100.1 F H 90 20 116/86 97 07/03/17 17:35 89 22 126/82 97 07/03/17 16:30 118 H 24 111/88 96 07/03/17 15:50 118 H 24 138/89 96 07/03/17 15:00 101.3 F H 122 H 24 158/98 97 Intake and Output 07/03/17 07/04/17 07/04/17 22:59 06:59 14:59 Intake Total 2380 Output Total 100 Balance -100 2380 Intake: Amount of Fluid Infused ( 800 ml) Intake, IV Titration 1580 Amount Sodium Chloride 0.9% 1, 1000 000 ml @ 100 mls/hr IV . Q10H STA Rx#:[id number] Sodium Chloride 0.9% 1, 80 000 ml @ 20 mls/hr IV . Q24H NEW Rx#:[id number] Sodium Chloride 0.9% 500 500 ml @ 999 mls/hr IV .Q31M STA Rx#:[id number] Output: Urine 100 Uretheral ([place]) 100 Other: Voiding Method Urinal Diaper # Voids 1 Weight 97.976 kg 102.5 kg Results - Lab Results Most recent lab results Calcium 8.9 mg/dL (8.4-10.2) 07/03/17 16:00 Magnesium 1.9 mg/dL (1.6-2.3) 07/03/17 16:00 07/03/17 16:00 07/03/17 16:00 Assessment and Plan Plan: Assessment: #1. Nonoliguric acute kidney injury secondary to ATN secondary to cardiorenal syndrome. BNP was elevated at 17,000. #2. Altered mental status likely related to infectious etiology. Concern for UTI as well as pneumonia. #3. Volume overload. #4. History of diastolic CHF. #5. Chronic kidney disease stage III secondary to biopsy-proven FSGS with baseline creatinine in the range of 1.7-2. His recent creatinine has been closer to 2.2-2.4 range. He is maintained on prednisone 10 mg daily as well as Prograf 1 mg daily for immunosuppression as an outpatient. Plan: Discontinue oral Bumex. Start IV Bumex 1 mg twice daily. Maintain Prograf if able to tolerate oral pills. Since he is not able to tolerate oral prednisone at this time, I will start him on Solu-Medrol 20 mg IV twice daily. Avoid nephrotoxic agents and hypotensive episodes. Hold antihypertensives for systolic blood pressure less than 120. Repeat electrolytes in the morning. I will also decrease Neurontin to 300 mg once daily. Thank you for the consultation. I will continue to follow the patient with you during his hospital stay.
--- NOTE | 2017-07-04 09:45 | P.CRDCN ---
History of Present Illness Consult date: 07/04/17 Requesting physician: Luther Bailey Consult reason: congestive heart failure Chief complaint: Weakness and lethargy History of present illness: This is a 77-year-old gentleman with history of hypertension, hyperlipidemia, prior CVA, chronic renal failure, chronic persistent atrial fibrillation, who was brought to the hospital by his because of weakness and lethargy. According to the , patient has not been eating or drinking much at home as well. EKG on arrival here showed atrial fibrillation with a moderately rapid ventricular response, right bundle branch block pattern. Chest x-ray shows diffuse reticular interstitial obesity which may represent interstitial pulmonary edema and cardiogenic or noncardiogenic fluid overload, or atypical pneumonia. Temperature on arrival here 101.3, blood pressure 158/90 , 97% on 4 L of oxygen. Temperature this morning 99.5, heart rate 104, blood pressure 136/96, 92% on 3 L of oxygen. White blood cell count 8.4, hemoglobin 11.4, platelet count 132. Sodium 140, potassium 3.9, BUN 96, creatinine 2.3. Troponin 0.13, BNP level 17,000. Positive UTI. At the time of my examination this morning, patient is mildly confused, appears to be short of breath, however it doesn't complain of feeling short of breath. Past Medical History Past Medical History: Atrial Fibrillation, Cancer, Heart Failure, Hearing Disorder / Deafness, Hyperlipidemia, Hypertension, Musculoskeletal Disorder, Renal Disease Additional Past Medical History / Comment(s): HX C-DIFF 09-04-16. skin ca. psoriatic arthritis. uti, nephrotic syndrome. chronic back pain. DENIES GOUT. PAST HX OF MIGRAINES. HX anemia,iron infusion. patient states he is pre- diabetic. EDEMA .edward torn rotator cuffs(had a previous sx on rt side but injured it again). A-Fib diagnosis March 2017; pt. responded to oral medication. skin cancer on head History of Any Multi-Drug Resistant Organisms: None Reported Date of last positivie culture/infection: 09-04-16 MDRO Source:: c-diff Past Surgical History: Back Surgery, Hernia Repair, Orthopedic Surgery Additional Past Surgical History / Comment(s): L4-5 LUMBAR FUSION-(total of 4 back surguries)NECK FUSION. RT ROTATOR CUFF," kidney bx-neg". Surgical scar from skin cancer/surgery on right side of head. MULT PAIN PROC, LAST 05/12/16. Fecal transfusion at [facility] for C-Diff in November 2016 Past Anesthesia/Blood Transfusion Reactions: No Reported Reaction Past Psychological History: No Psychological Hx Reported Additional Psychological History / Comment(s): lives in the family home with his . 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 No experience. No international travel. No animal exposures. No ill contacts. Denies any significant tobacco or alcohol use. No recreational drug use. Smoking Status: Never smoker Smoking Status: Never smoker Past Alcohol Use History: None Reported Past Drug Use History: None Reported - Past Family History Father Additional Family Medical History / Comment(s): as a results of burn injuries in work related accident Mother Additional Family Medical History / Comment(s): at age 84 from heart problems Sister(s) Family Medical History: Cancer Additional Family Medical History / Comment(s): mother-- HTN. brother-- Diabetes, kidney problems Medications and Allergies Home Medications Medication Instructions Recorded Confirmed Type Ergocalciferol [Vitamin D2 50,000 units PO DEAL 01/16/14 07/03/17 History (DRISDOL)] Leflunomide [Arava] 20 mg PO W/SUPPER 01/16/14 07/03/17 History Ranitidine HCl [Zantac] 150 mg PO BID 01/16/14 07/03/17 History Tamsulosin HCl [Flomax] 0.4 mg PO BID 01/16/14 07/03/17 History Propranolol LA [Inderal LA] 60 mg PO DAILY 12/17/14 07/03/17 History predniSONE 10 mg PO W/SUPPER 03/25/16 07/03/17 History Atorvastatin [Lipitor] 40 mg PO HS 04/18/16 07/03/17 History [place]-3 Fatty Acids/Fish Oil [Fish 1 cap PO DAILY 04/18/16 07/03/17 History Oil 1,000 mg Softgel] Tacrolimus [Prograf] 1 mg PO DAILY 08/19/16 07/03/17 History Gabapentin [Neurontin] 600 mg PO BID 09/04/16 07/03/17 History Isosorbide Mononitrate ER [Imdur] 30 mg PO DAILY #1 tab 09/10/16 07/03/17 Rx Allopurinol [Zyloprim] 200 mg PO W/SUPPER 10/26/16 07/03/17 History L.acidoph,Paracasei, B.lactis 1 cap PO DAILY 10/26/16 07/03/17 History [Probiotic] Multivitamins, Thera [Multivitamin 1 tab PO DAILY 10/26/16 07/03/17 History (formulary)] traMADol HCL [Ultram] 50 mg PO BID PRN 10/26/16 07/03/17 History Diltiazem HCl [Diltiazem 24Hr ER] 120 mg PO W/SUPPER 04/27/17 07/03/17 History Calcium Carbonate/Vitamin D3 1 tab PO DAILY 05/15/17 07/03/17 History [Calcium 600-Vit D3 200 Tablet] Apixaban [Eliquis] 2.5 mg PO BID 07/03/17 07/03/17 History Bumetanide 2 mg PO BID@0800,1600 07/03/17 07/03/17 History Enalapril [Vasotec] 5 mg PO DAILY 07/03/17 07/03/17 History Metolazone [Zaroxolyn] 5 mg PO MOWEFR 07/03/17 07/03/17 History Procrit (Unknown Dose) 1 dose INJ Q7D 07/03/17 07/03/17 History Allergies Allergy/AdvReac Type Severity Reaction Status Date / Time sumatriptan [From Imitrex] Allergy Swelling Verified 07/03/17 15:19 sumatriptan succinate Allergy Swelling Verified 07/03/17 15:19 [From Imitrex] cephalexin [From Keflex] AdvReac Diarrhea Verified 07/03/17 15:19 Physical Exam Vitals: Vital Signs Temp Pulse Pulse Resp BP BP Pulse Ox 07/04/17 02:45 99.5 F 104 H 20 137/97 92 L 07/04/17 01:41 115 H 20 145/92 97 07/04/17 00:27 83 20 129/84 97 07/03/17 23:13 111 H 20 117/72 98 07/03/17 22:12 106 H 20 96/66 97 07/03/17 21:00 98.4 F 108 H 20 114/77 97 07/03/17 20:35 84 20 103/78 98 02/25/18 19:13 83 20 110/68 97 07/03/17 18:15 100.1 F H 90 20 116/86 97 07/03/17 17:35 89 22 126/82 97 07/03/17 16:30 118 H 24 111/88 96 07/03/17 15:50 118 H 24 138/89 96 07/03/17 15:00 101.3 F H 122 H 24 158/98 97 Intake and Output 07/03/17 07/04/17 07/04/17 22:59 06:59 14:59 Intake Total 2380 Output Total 100 Balance -100 2380 Intake: Amount of Fluid Infused ( 800 ml) Intake, IV Titration 1580 Amount Sodium Chloride 0.9% 1, 1000 000 ml @ 100 mls/hr IV . Q10H STA Rx#:[id number] Sodium Chloride 0.9% 1, 80 000 ml @ 20 mls/hr IV . Q24H NEW Rx#:[id number] Sodium Chloride 0.9% 500 500 ml @ 999 mls/hr IV .Q31M STA Rx#:[id number] Output: Urine 100 Uretheral ([place]) 100 Other: Voiding Method Urinal Diaper # Voids 1 Weight 97.976 kg 102.5 kg PHYSICAL EXAMINATION: HEENT: Head is atraumatic, normocephalic. Pupils equal, round. Neck is supple. There is elevated jugular venous pressure. HEART EXAMINATION: Heart S1 and S2 irregularly irregular a systolic murmur is heard CHEST EXAMINATION: Lungs reveal diminished air entry bilaterally with crackles to the bases bilaterally. ABDOMEN: Soft, obese, nontender. Bowel sounds are heard. No organomegaly noted. EXTREMITIES: 2+ peripheral pulses with 1-2+ evidence of peripheral edema and no calf tenderness noted. NEUROLOGIC patient is awake, alert , mildly confused . Results 07/03/17 16:00 07/03/17 16:00 Cardiac Enzymes 07/03/17 07/03/17 Range/Units 16:00 16:00 AST 29 (17-59) U/L CK-MB (CK-2) 0.6 (0.0-2.4) ng/mL Troponin I 0.132 H* (0.000-0.034) ng/mL Coagulation 07/03/17 Range/Units 16:00 PT 9.9 (9.0-12.0) sec APTT 24.1 (22.0-30.0) sec CBC 07/03/17 Range/Units 16:00 WBC 8.4 (3.8-10.6) k/uL RBC 3.80 L (4.30-5.90) m/uL Hgb 11.4 L (13.0-17.5) gm/dL Hct 37.6 L (39.0-53.0) % Plt Count 132 L (150-450) k/uL Comprehensive Metabolic Panel 07/03/17 Range/Units 16:00 Sodium 140 (137-145) mmol/L Potassium 3.9 (3.5-5.1) mmol/L Chloride 102 (98-107) mmol/L Carbon Dioxide 33 H (22-30) mmol/L BUN 96 H* (9-20) mg/dL Creatinine 2.30 H (0.66-1.25) mg/dL Glucose 120 H (74-99) mg/dL Calcium 8.9 (8.4-10.2) mg/dL AST 29 (17-59) U/L ALT 22 (21-72) U/L Alkaline Phosphatase 84 (38-126) U/L Total Protein 5.4 L (6.3-8.2) g/dL Albumin 2.4 L (3.5-5.0) g/dL Current Medications Generic Name Dose Route Start Last Admin Trade Name Freq PRN Reason Stop Dose Admin Acetaminophen 650 mg 07/03/17 17:34 Tylenol Tab PO Q6HR PRN Mild Pain or Fever > 100.5 Acetaminophen 650 mg 07/04/17 09:13 Tylenol Suppository RECTAL Q6HR PRN Fever and/ or Mild Pain Allopurinol 200 mg 07/04/17 17:30 Zyloprim PO W/SUPPER [facility] Apixaban 2.5 mg 07/03/17 21:00 07/03/17 22:10 Eliquis PO 2.5 mg BID NEW Administration Atorvastatin Calcium 40 mg 07/03/17 21:00 07/03/17 22:10 Lipitor PO 40 mg HS NEW Administration Bumetanide 2 mg 07/04/17 08:00 Bumex PO BID@0800,1600 [facility] Calcium Carbonate 1 each 07/04/17 09:00 Oscal 500+D PO DAILY [facility] Diltiazem HCl 120 mg 07/04/17 17:30 Cardizem Cd PO W/SUPPER [facility] Famotidine 20 mg 07/03/17 21:00 07/03/17 22:11 Pepcid PO Not Given HS [facility] Gabapentin 600 mg 07/03/17 21:00 07/03/17 22:12 Neurontin PO Not Given BID [facility] Sodium Chloride 1,000 mls @ 20 mls/hr 07/03/17 17:45 07/03/17 18:14 Saline 0.9% IV 20 mls/hr .Q24H NEW Administration Ampicillin Sodium/Sulbactam 100 mls @ 100 mls/hr 07/04/17 09:00 07/04/17 09: 14 Sodium 3 gm/ Sodium Chloride IVPB 100 mls/hr Q12HR NEW Administration Isosorbide Mononitrate 30 mg 07/04/17 09:00 Imdur PO DAILY [facility] Lactobacillus Acidoph/[place] 1 each 07/04/17 09:00 Lactinex PO DAILY [facility] Leflunomide 20 mg 07/04/17 17:30 Arava PO W/SUPPER [facility] Lisinopril 10 mg 07/04/17 09:00 Zestril PO DAILY [facility] Metolazone 5 mg 07/04/17 09:00 Zaroxolyn PO MOWEFR [facility] Multivitamins 1 each 07/04/17 12:00 Theragran PO 1200 [facility] Naloxone HCl 0.2 mg 07/03/17 17:34 Narcan IV Q2M PRN Opioid Reversal Prednisone 10 mg 07/04/17 17:30 PO W/SUPPER [facility] Propranolol HCl 60 mg 07/04/17 09:00 Inderal La PO DAILY [facility] Tacrolimus 1 mg 07/04/17 09:00 Prograf PO DAILY [facility] Tamsulosin HCl 0.4 mg 07/03/17 21:00 07/03/17 22:26 Flomax PO Not Given BID [facility] Tramadol HCl 50 mg 07/03/17 17:37 Ultram PO BID PRN Pain Intake and Output 07/03/17 07/04/17 07/04/17 22:59 06:59 14:59 Intake Total 2380 Output Total 100 Balance -100 2380 Intake: Amount of Fluid Infused ( 800 ml) Intake, IV Titration 1580 Amount Sodium Chloride 0.9% 1, 1000 000 ml @ 100 mls/hr IV . Q10H STA Rx#:[id number] Sodium Chloride 0.9% 1, 80 000 ml @ 20 mls/hr IV . Q24H NEW Rx#:[id number] Sodium Chloride 0.9% 500 500 ml @ 999 mls/hr IV .Q31M STA Rx#:[id number] Output: Urine 100 Uretheral ([place]) 100 Other: Voiding Method Urinal Diaper # Voids 1 Weight 97.976 kg 102.5 kg 07/03/17 16:00 07/03/17 16:00 EKG Interpretations (text) EKG shows atrial fibrillation with a rapid ventricular response Assessment and Plan Plan: Assessment and plan #1 symptoms of progressive weakness and lethargy. CAT scan of the brain was performed which revealed blurring of the chakraborty white junction in the watershed area of the right temporoparietal region, may represent subacute infarct. MRI could be performed for further evaluation. Moderate burden nonspecific white matter change and age-related volume loss. Positive temperature of 101 on arrival. Positive UTI. #2 atrial fibrillation with rapid ventricular response, patient has history of chronic persistent atrial fibrillation, on Eliquis for anticoagulation. #3 chronic renal failure stage III #4 hypertension Number 5 for borderline diabetes #6 hyperlipidemia #7 prior CVA #8 chronic anemia #9 abnormal troponin, likely secondary to abnormal renal function. #10 systolic congestive heart failure acute on chronic most recent echocardiogram with Doppler study was performed on May 16 which revealed an ejection fraction of 30-35%. Plan As the patient just recently had an echo performed, we will not repeat an echo on this admission. We will continue Eliquis, Lipitor, Cardizem, patient did receive one dose of IV Lasix, initiated twice a day dose of IV Lasix. Continue propranolol, Zaroxolyn, patient is currently on RICK inhibitor, we will speak with nephrology. Further recommendations to follow. DNP note has been reviewed, I agree with a documented findings and plan of care. Patient was seen and examined.
[2017-07-04 09:56] LABS: Calcium 8.6 mg/dL (8.4-10.2); Potassium 3.8 mmol/L (3.5-5.1)
[2017-07-04] MEDS ORDERED: BUMETANIDE 0.25 MG/ML 4 ML VIAL IVP SCH (10:00)
--- NOTE | 2017-07-04 10:15 | P.CONS ---
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 Gill at [facility] on February 04, 2017. He had a recent hospitalization in May which time he was treated for sepsis secondary to urinary tract infection with culture positive for Klebsiella pneumoniae and previous to that urine culture for Enterococcus faecalis. Patient was initially treated with Unasyn and was discharged home on doxycycline. Patient was in his usual state of health until Tuesday morning. His left the home for about 1 hour to go to [facility]ian and when she came back he had significant weakness and lethargy and fever. She called 911 and patient was brought into [facility] emergency center for evaluation. 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 Chest x-ray shows interstitial pulmonary edema, cardiogenic or noncardiogenic fluid overload or atypical pneumonia. He had a white count of 8.4, hemoglobin 11.4, platelet count 132 which is low from his baseline. BUN 96 and creatinine 2.3. Troponin 0.132. Urinalysis was clear, blood moderate, leukoesterase small, RBC 75, WBCs 26, bacteria many. Urine culture and blood culture are in progress. Patient was started on doxycycline and admitted to the selective care unit and consults requested with nephrology and cardiology. His is very concerned as he is more lethargic this morning than when she left him last evening. Patient failed bedside swallow evaluation and speech therapy is unable to evaluate due to mental status changes. Patient is not staying awake and following only minimal direction. Review of Systems ROS unobtainable: due to mental status Past Medical History Past Medical History: Atrial Fibrillation, Cancer, Heart Failure, Hearing Disorder / Deafness, Hyperlipidemia, Hypertension, Musculoskeletal Disorder, Renal Disease Additional Past Medical History / Comment(s): HX C-DIFF 09-04-16. skin ca. psoriatic arthritis. uti, nephrotic syndrome. chronic back pain. DENIES GOUT. PAST HX OF MIGRAINES. HX anemia,iron infusion. patient states he is pre- diabetic. EDEMA .edward torn rotator cuffs(had a previous sx on rt side but injured it again). A-Fib diagnosis March 2017; pt. responded to oral medication. skin cancer on head History of Any Multi-Drug Resistant Organisms: None Reported Year Discovered:: 09-04-16 MDRO Source:: c-diff Past Surgical History: Back Surgery, Hernia Repair, Orthopedic Surgery Additional Past Surgical History / Comment(s): L4-5 LUMBAR FUSION-(total of 4 back surguries)NECK FUSION. RT ROTATOR CUFF," kidney bx-neg". Surgical scar from skin cancer/surgery on right side of head. MULT PAIN PROC, LAST 05/12/16. Fecal transfusion at [facility] for C-Diff in November 2016 Past Anesthesia/Blood Transfusion Reactions: No Reported Reaction Past Psychological History: No Psychological Hx Reported Additional Psychological History / Comment(s): lives in the family home with his . 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 No experience. No international travel. No animal exposures. No ill contacts. Denies any significant tobacco or alcohol use. No recreational drug use. Smoking Status: Never smoker Smoking Status: Never smoker Past Alcohol Use History: None Reported Past Drug Use History: None Reported - Past Family History Father Additional Family Medical History / Comment(s): as a results of burn injuries in work related accident Mother Additional Family Medical History / Comment(s): at age 84 from heart problems Sister(s) Family Medical History: Cancer Additional Family Medical History / Comment(s): mother-- HTN. brother-- Diabetes, kidney problems Medications and Allergies Home Medications Medication Instructions Recorded Confirmed Type Ergocalciferol [Vitamin D2 50,000 units PO DEAL 01/16/14 07/03/17 History (DRISDOL)] Leflunomide [Arava] 20 mg PO W/SUPPER 01/16/14 07/03/17 History Ranitidine HCl [Zantac] 150 mg PO BID 01/16/14 07/03/17 History Tamsulosin HCl [Flomax] 0.4 mg PO BID 01/16/14 07/03/17 History Propranolol LA [Inderal LA] 60 mg PO DAILY 12/17/14 07/03/17 History predniSONE 10 mg PO W/SUPPER 03/25/16 07/03/17 History Atorvastatin [Lipitor] 40 mg PO HS 04/18/16 07/03/17 History [place]-3 Fatty Acids/Fish Oil [Fish 1 cap PO DAILY 04/18/16 07/03/17 History Oil 1,000 mg Softgel] Tacrolimus [Prograf] 1 mg PO DAILY 08/19/16 07/03/17 History Gabapentin [Neurontin] 600 mg PO BID 09/04/16 07/03/17 History Isosorbide Mononitrate ER [Imdur] 30 mg PO DAILY #1 tab 09/10/16 07/03/17 Rx Allopurinol [Zyloprim] 200 mg PO W/SUPPER 10/26/16 07/03/17 History L.acidoph,Paracasei, B.lactis 1 cap PO DAILY 10/26/16 07/03/17 History [Probiotic] Multivitamins, Thera [Multivitamin 1 tab PO DAILY 10/26/16 07/03/17 History (formulary)] traMADol HCL [Ultram] 50 mg PO BID PRN 10/26/16 07/03/17 History Diltiazem HCl [Diltiazem 24Hr ER] 120 mg PO W/SUPPER 04/27/17 07/03/17 History Calcium Carbonate/Vitamin D3 1 tab PO DAILY 05/15/17 07/03/17 History [Calcium 600-Vit D3 200 Tablet] Apixaban [Eliquis] 2.5 mg PO BID 07/03/17 07/03/17 History Bumetanide 2 mg PO BID@0800,1600 07/03/17 07/03/17 History Enalapril [Vasotec] 5 mg PO DAILY 07/03/17 07/03/17 History Metolazone [Zaroxolyn] 5 mg PO MOWEFR 07/03/17 07/03/17 History Procrit (Unknown Dose) 1 dose INJ Q7D 07/03/17 07/03/17 History Allergies Allergy/AdvReac Type Severity Reaction Status Date / Time sumatriptan [From Imitrex] Allergy Swelling Verified 07/03/17 15:19 sumatriptan succinate Allergy Swelling Verified 07/03/17 15:19 [From Imitrex] cephalexin [From Keflex] AdvReac Diarrhea Verified 07/03/17 15:19 Physical Exam Vitals: Vital Signs Temp Pulse Pulse Resp BP BP Pulse Ox 07/04/17 02:45 99.5 F 104 H 20 137/97 92 L 07/04/17 01:41 115 H 20 145/92 97 07/04/17 00:27 83 20 129/84 97 07/03/17 23:13 111 H 20 117/72 98 07/03/17 22:12 106 H 20 96/66 97 07/03/17 21:00 98.4 F 108 H 20 114/77 97 07/03/17 20:35 84 20 103/78 98 07/03/17 19:13 83 20 110/68 97 07/03/17 18:15 100.1 F H 90 20 116/86 97 07/03/17 17:35 89 22 126/82 97 07/03/17 16:30 118 H 24 111/88 96 07/03/17 15:50 118 H 24 138/89 96 07/03/17 15:00 101.3 F H 122 H 24 158/98 97 Intake and Output 07/03/17 07/04/17 07/04/17 22:59 06:59 14:59 Intake Total 2380 Output Total 100 Balance -100 2380 Intake: Amount of Fluid Infused ( 800 ml) Intake, IV Titration 1580 Amount Sodium Chloride 0.9% 1, 1000 000 ml @ 100 mls/hr IV . Q10H STA Rx#:[id number] Sodium Chloride 0.9% 1, 80 000 ml @ 20 mls/hr IV . Q24H NEW Rx#:[id number] Sodium Chloride 0.9% 500 500 ml @ 999 mls/hr IV .Q31M STA Rx#:[id number] Output: Urine 100 Uretheral ([place]) 100 Other: Voiding Method Urinal Diaper # Voids 1 Weight 97.976 kg 102.5 kg Gen: This is an obese 77-year-old male. He is in bed and is moaning occasionally. He does not appear to be in any respiratory distress. HEENT: Head is atraumatic, normocephalic. Pupils equal, round. Sclerae is anicteric. Mucous membranes of the mouth are very dry. NECK: Supple. + JVD. No lymphadenopathy. No thyromegaly. LUNGS: bilateral crackles. No intercostal retractions. HEART: irregular rate and rhythm. systolic murmur. ABDOMEN: Soft. Bowel sounds are present. No masses. No tenderness. EXTREMITIES: 1-2+ bilateral pedal edema without erythema to the lower extremities.. No calf tenderness. Dorsalis pedis +2 bilaterally. NEUROLOGICAL: Patient is lethargic. He will open eyes when requested but will not hold eye contact or answer questions. He is able to follow only minimal instructions. He is not able to verbalize any history. Results Results: Laboratory Results WBC 8.4 k/uL (3.8-10.6) 07/03/17 16:00 RBC 3.80 m/uL (4.30-5.90) L 07/03/17 16:00 Hgb 11.4 gm/dL (13.0-17.5) L 07/03/17 16:00 Hct 37.6 % (39.0-53.0) L 07/03/17 16:00 MCV 99.2 fL (80.0-100.0) 07/03/17 16:00 MCH 30.0 pg (25.0-35.0) 07/03/17 16:00 MCHC 30.3 g/dL (31.0-37.0) L 07/03/17 16:00 RDW 15.7 % (11.5-15.5) H 07/03/17 16:00 Plt Count 132 k/uL (150-450) L 07/03/17 16:00 Neutrophils % 84 % 07/03/17 16:00 Lymphocytes % 5 % 07/03/17 16:00 Monocytes % 8 % 07/03/17 16:00 Eosinophils % 1 % 07/03/17 16:00 Basophils % 1 % 07/03/17 16:00 Neutrophils # 7.0 k/uL (1.3-7.7) 07/03/17 16:00 Lymphocytes # 0.4 k/uL (1.0-4.8) L 07/03/17 16:00 Monocytes # 0.6 k/uL (0-1.0) 07/03/17 16:00 Eosinophils # 0.1 k/uL (0-0.7) 07/03/17 16:00 Basophils # 0.1 k/uL (0-0.2) 07/03/17 16:00 Macrocytosis Slight 07/03/17 16:00 PT 9.9 sec (9.0-12.0) 07/03/17 16:00 INR 1.0 (<1.2) 07/03/17 16:00 APTT 24.1 sec (22.0-30.0) 07/03/17 16:00 Sodium 141 mmol/L (137-145) 07/04/17 09:17 Potassium 3.8 mmol/L (3.5-5.1) 07/04/17 09:17 Chloride 103 mmol/L (98-107) 07/04/17 09:17 Carbon Dioxide 30 mmol/L (22-30) 07/04/17 09:17 Anion Gap 8 mmol/L 07/04/17 09:17 BUN 94 mg/dL (9-20) H* 07/04/17 09:17 Creatinine 2.43 mg/dL (0.66-1.25) H 07/04/17 09:17 Est GFR (MDRD) Af Amer 32 (>60 ml/min/1.73 sqM) 07/04/17 09:17 Est GFR (MDRD) Non-Af 26 (>60 ml/min/1.73 sqM) 07/04/17 09:17 Glucose 100 mg/dL (74-99) H 07/04/17 09:17 Plasma Lactic Acid [place] 0.9 mmol/L (0.7-2.0) 07/03/17 16:00 Calcium 8.6 mg/dL (8.4-10.2) 07/04/17 09:17 Magnesium 1.9 mg/dL (1.6-2.3) 07/03/17 16:00 Total Bilirubin 0.4 mg/dL (0.2-1.3) 07/03/17 16:00 AST 29 U/L (17-59) 07/03/17 16:00 ALT 22 U/L (21-72) 07/03/17 16:00 Alkaline Phosphatase 84 U/L (38-126) 07/03/17 16:00 Total Creatine Kinase 41 U/L (55-170) L 07/03/17 16:00 CK-MB (CK-2) 0.6 ng/mL (0.0-2.4) 07/03/17 16:00 CK-MB (CK-2) Rel Index 1.5 07/03/17 16:00 Troponin I 0.132 ng/mL (0.000-0.034) H* 07/03/17 16:00 NT-Pro-B Natriuret Pep 99366 pg/mL 07/03/17 16:00 Total Protein 5.4 g/dL (6.3-8.2) L 07/03/17 16:00 Albumin 2.4 g/dL (3.5-5.0) L 07/03/17 16:00 Urine Color Yellow 07/03/17 16:49 Urine Appearance Clear (Clear) 07/03/17 16:49 Urine pH 6.0 (5.0-8.0) 07/03/17 16:49 Ur Specific [place] 1.009 (1.001-1.035) 07/03/17 16:49 Urine Protein 3+ (Negative) H 07/03/17 16:49 Urine Glucose (UA) Negative (Negative) 07/03/17 16:49 Urine Ketones Negative (Negative) 07/03/17 16:49 Urine Blood Moderate (Negative) H 07/03/17 16:49 Urine Nitrite Negative (Negative) 07/03/17 16:49 Urine Bilirubin Negative (Negative) 07/03/17 16:49 Urine Urobilinogen <2.0 mg/dL (<2.0) 07/03/17 16:49 Ur Leukocyte Esterase Small (Negative) H 07/03/17 16:49 Urine RBC 75 /hpf (0-5) H 07/03/17 16:49 Urine WBC 26 /hpf (0-5) H 07/03/17 16:49 Ur Squamous Epith Cells <1 /hpf (0-4) 07/03/17 16:49 Urine Bacteria Many /hpf (None) H 07/03/17 16:49 Hyaline Casts 1 /lpf (0-2) 07/03/17 16:49 Urine Mucus Rare /hpf (None) H 07/03/17 16:49 CBC & Chem 7: 07/03/17 16:00 07/03/17 16:00 Labs: Abnormal Lab Results - Last 24 Hours (Table) 07/03/17 07/03/17 07/03/17 Range/Units 16:00 16:00 16:00 RBC 3.80 L (4.30-5.90) m/uL Hgb 11.4 L (13.0-17.5) gm/dL Hct 37.6 L (39.0-53.0) % MCHC 30.3 L (31.0-37.0) g/dL RDW 15.7 H (11.5-15.5) % Plt Count 132 L (150-450) k/uL Lymphocytes # 0.4 L (1.0-4.8) k/uL Carbon Dioxide 33 H (22-30) mmol/L BUN 96 H* (9-20) mg/dL Creatinine 2.30 H (0.66-1.25) mg/dL Glucose 120 H (74-99) mg/dL Total Creatine Kinase 41 L (55-170) U/L Troponin I 0.132 H* (0.000-0.034) ng/mL Total Protein 5.4 L (6.3-8.2) g/dL Albumin 2.4 L (3.5-5.0) g/dL Urine Protein (Negative) Urine Blood (Negative) Ur Leukocyte Esterase (Negative) Urine RBC (0-5) /hpf Urine WBC (0-5) /hpf Urine Bacteria (None) /hpf Urine Mucus (None) /hpf 07/03/17 Range/Units 16:49 RBC (4.30-5.90) m/uL Hgb (13.0-17.5) gm/dL Hct (39.0-53.0) % MCHC (31.0-37.0) g/dL RDW (11.5-15.5) % Plt Count (150-450) k/uL Lymphocytes # (1.0-4.8) k/uL Carbon Dioxide (22-30) mmol/L BUN (9-20) mg/dL Creatinine (0.66-1.25) mg/dL Glucose (74-99) mg/dL Total Creatine Kinase (55-170) U/L Troponin I (0.000-0.034) ng/mL Total Protein (6.3-8.2) g/dL Albumin (3.5-5.0) g/dL Urine Protein 3+ H (Negative) Urine Blood Moderate H (Negative) Ur Leukocyte Esterase Small H (Negative) Urine RBC 75 H (0-5) /hpf Urine WBC 26 H (0-5) /hpf Urine Bacteria Many H (None) /hpf Urine Mucus Rare H (None) /hpf Microbiology - Last 24 Hours (Table) 07/03/17 16:49 Urine Culture - Preliminary Urine,Catheterized Assessment and Plan Plan: This is an immunocompromised 77-year-old male patient who presents with signs of sepsis with fever, tachycardia and metabolic encephalopathy most likely secondary to a urinary tract infection. Patient also presented with acute on chronic systolic heart failure, A. fib with RVR and elevated troponin secondary to acute kidney injury secondary to ATN secondary to cardiorenal syndrome. Patient does have previous urine cultures isolating Enterococcus faecalis as well as Klebsiella pneumoniae. Doxycycline will be discontinued and patient placed on Unasyn. Urine culture and blood culture in progress. Continue supportive care. Further recommendations as patient progresses. The above dictated assessment and findings were discussed with Dr. Kwok. The impression and plan of care have been directed as dictated. Ivory Cano nurse practitioner acting as scribe for Dr. Kwok.
[2017-07-04] MEDS: LISINOPRIL 10 MG TAB PO SCH (11:39)
[2017-07-04] MEDS: APIXABAN 2.5 MG TABLET PO SCH ×2 (11:39→22:35)
[2017-07-04] MEDS: CALCIUM CARB-VIT D 500MG-200UN 1 EACH TAB PO SCH (11:39)
[2017-07-04] MEDS: METOLAZONE 5 MG TAB PO SCH (11:39)
[2017-07-04] MEDS: ISOSORBIDE MONONITRATE ER 30 MG TAB.ER.24H PO SCH (11:39)
[2017-07-04] MEDS: LACTOBACILLUS ACIDOPH & BULGAR 1 EACH PACKET PO SCH (11:39)
[2017-07-04] MEDS: TAMSULOSIN 0.4 MG CAP.ER.24H PO SCH ×2 (11:40→22:35)
[2017-07-04] MEDS: TACROLIMUS 1 MG CAP PO SCH (11:40)
[2017-07-04] MEDS: MULTIVITAMINS, THERA 1 EACH TAB PO SCH (11:41)
[2017-07-04] MEDS ORDERED: METOPROLOL TARTRATE 25 MG TAB PO SCH (12:00)
[2017-07-04] MEDS: methylPREDNISolone SOD SUCCI 40 MG/ML 1 ML VIAL IV SCH ×2 (12:14→22:31)
[2017-07-04] MEDS: FUROSEMIDE 10 MG/ML 4 ML VIAL IV SCH ×2 (12:14→22:31)
--- NOTE | 2017-07-04 14:47 | P.HPIM ---
History of Present Illness H&P Date: 07/04/17 Chief Complaint: fever tired History of presenting complaint: This is a pleasant 77 year patient rather extensive medical history. Patient's chronic stable medical conditions include hypertension, osteoarthritis, chronic kidney disease, nephrotic syndrome, underlying focal FSGS, congestive heart failure. Patient was brought into the ER after not feeling well. Having fevers. Patient is patient is somewhat lethargic delirious able to give some history. He dozes off repeatedly. Patient's has a congestive cough. Denies bringing up any sputum. No urinary frequency or symptoms. Appetite has gone down. Weak and tired. Baseline uses a walker. GEN.: Weak tired febrile EYES: None HEENT: Decreased hearing] NECK: None RESPIRATORY: As above CARDIOVASCULAR: None GASTROINTESTINAL: None GENITOURINARY: None MUSCULOSKELETAL: Some pain in the joint LYMPHATICS: None HEMATOLOGICAL: None PSYCHIATRY: Lethargic NEUROLOGICAL: None Past medical history: -Atrial fibrillation -Congestive heart failure EF 30-35% -Hearing disorder -Hyperlipidemia -Essential hypertension -Chronic kidney disease stage III secondary to biopsy-proven prolonged FSGS to baseline creatinine closer to 2.2 maintained on prednisone and Prograf -Skin cancer -Psoriatic arthritis -Nephrotic syndrome with FSGS -Chronic back pain -Bilateral rotator cuff are down -C. diff with fecal transplantation, skin cancer on the scalp Social history: lives with his . 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 Never smoked. Alcohol none. Family history. Mother had hypertension, brother had diabetes and kidney problems. VITAL SIGNS: 101.3, 122, 24, 150/98, 97% on 4 L GENERAL: BMI 34.4, well built, laying in bed tired appearing lethargic but arousable. EYES: Pupils equal. Conjunctiva normal. HEENT: External appearance of nose and ears normal, oral cavity grossly normal, decreased hearing. NECK: JVD unable to assess; masses not palpable. HEART: First and second heart sounds are normal; no edema. LUNGS: Respiratory rate increased, decreased breath sounds, some basal crackles. ABDOMEN: Soft, nontender, liver spleen not palpable, no masses palpable. LYMPHATICS: No lymph nodes palpable in the axilla and neck. PSYCH: Lethargic, arousable, able to answer questionsl. NEUROLOGICAL: Cranial nerves grossly intact; no facial asymmetry, power and sensation grossly intact. MUSCULOSKELETAL: Severe osteoarthritis especially in the hands , limited range of motion of the shoulders Investigations: White count 8.4, hemoglobin 11.4, platelets 132, potassium 3.9, BUN 96, creatinine 2.30, troponin I 0.132, albumin 2.4 UA shows protein 3+ small leukoesterase, RBC 75, WBC 26 Patient's BUN/creatinine on 05/09/2017 was 118/2.80 Chest x-ray reviewed-shows bilateral infiltrates Assessment: -Bilateral pneumonia, multilobar suspected gram-negative organism, causing sepsis present on admission causing acute metabolic encephalopathy and acute delirium -Persistent Atrial fibrillation, with heart rate uncontrolled on admission -Acute on Chronic Congestive heart failure from systolic dysfunction EF 30-35% probably from underlying hypertensive heart disease -Hearing disorder -Hyperlipidemia -Essential hypertension -Chronic kidney disease stage III secondary to biopsy-proven prolonged FSGS to baseline creatinine closer to 2.2 maintained on prednisone and Prograf -Skin cancer -Psoriatic arthritis -Nephrotic syndrome with FSGS -Chronic back pain -Bilateral rotator cuff injuries -Chronic medical debility -Chronic gait dysfunction patient uses a walker at baseline Plan: Patient started on IV Unasyn. Home medications are resumed. Patient put on a stress dose steroid. Patient's is not present currently. Consultation made to cardiology, nephrology, ID. Prognosis guarded. Follow electrolytes closely. Past Medical History Past Medical History: Atrial Fibrillation, Cancer, Heart Failure, Hearing Disorder / Deafness, Hyperlipidemia, Hypertension, Musculoskeletal Disorder, Renal Disease Additional Past Medical History / Comment(s): HX C-DIFF 09-04-16. skin ca. psoriatic arthritis. uti, nephrotic syndrome. chronic back pain. DENIES GOUT. PAST HX OF MIGRAINES. HX anemia,iron infusion. patient states he is pre- diabetic. EDEMA .edward torn rotator cuffs(had a previous sx on rt side but injured it again). A-Fib diagnosis March 2017; pt. responded to oral medication. skin cancer on head History of Any Multi-Drug Resistant Organisms: None Reported Date of last positivie culture/infection: 09-04-16 MDRO Source:: c-diff Past Surgical History: Back Surgery, Hernia Repair, Orthopedic Surgery Additional Past Surgical History / Comment(s): L4-5 LUMBAR FUSION-(total of 4 back surguries)NECK FUSION. RT ROTATOR CUFF," kidney bx-neg". Surgical scar from skin cancer/surgery on right side of head. MULT PAIN PROC, LAST 05/12/16. Fecal transfusion at [facility] for C-Diff in November 2016 Past Anesthesia/Blood Transfusion Reactions: No Reported Reaction Past Psychological History: No Psychological Hx Reported Additional Psychological History / Comment(s): lives in the family home with his . 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 No experience. No international travel. No animal exposures. No ill contacts. Denies any significant tobacco or alcohol use. No recreational drug use. Smoking Status: Never smoker Smoking Status: Never smoker Past Alcohol Use History: None Reported Past Drug Use History: None Reported - Past Family History Father Additional Family Medical History / Comment(s): as a results of burn injuries in work related accident Mother Additional Family Medical History / Comment(s): at age 84 from heart problems Sister(s) Family Medical History: Cancer Additional Family Medical History / Comment(s): mother-- HTN. brother-- Diabetes, kidney problems Medications and Allergies Home Medications Medication Instructions Recorded Confirmed Type Ergocalciferol [Vitamin D2 50,000 units PO DEAL 01/16/14 07/03/17 History (DRISDOL)] Leflunomide [Arava] 20 mg PO W/SUPPER 01/16/14 07/03/17 History Ranitidine HCl [Zantac] 150 mg PO BID 01/16/14 07/03/17 History Tamsulosin HCl [Flomax] 0.4 mg PO BID 01/16/14 07/03/17 History Propranolol LA [Inderal LA] 60 mg PO DAILY 12/17/14 07/03/17 History predniSONE 10 mg PO W/SUPPER 03/25/16 07/03/17 History Atorvastatin [Lipitor] 40 mg PO HS 04/18/16 07/03/17 History [place]-3 Fatty Acids/Fish Oil [Fish 1 cap PO DAILY 04/18/16 07/03/17 History Oil 1,000 mg Softgel] Tacrolimus [Prograf] 1 mg PO DAILY 08/19/16 07/03/17 History Gabapentin [Neurontin] 600 mg PO BID 09/04/16 07/03/17 History Isosorbide Mononitrate ER [Imdur] 30 mg PO DAILY #1 tab 09/10/16 07/03/17 Rx Allopurinol [Zyloprim] 200 mg PO W/SUPPER 10/26/16 07/03/17 History L.acidoph,Paracasei, B.lactis 1 cap PO DAILY 10/26/16 07/03/17 History [Probiotic] Multivitamins, Thera [Multivitamin 1 tab PO DAILY 10/26/16 07/03/17 History (formulary)] traMADol HCL [Ultram] 50 mg PO BID PRN 10/26/16 07/03/17 History Diltiazem HCl [Diltiazem 24Hr ER] 120 mg PO W/SUPPER 04/27/17 07/03/17 History Calcium Carbonate/Vitamin D3 1 tab PO DAILY 05/15/17 07/03/17 History [Calcium 600-Vit D3 200 Tablet] Apixaban [Eliquis] 2.5 mg PO BID 07/03/17 07/03/17 History Bumetanide 2 mg PO BID@0800,1600 07/03/17 07/03/17 History Enalapril [Vasotec] 5 mg PO DAILY 07/03/17 07/03/17 History Metolazone [Zaroxolyn] 5 mg PO MOWEFR 07/03/17 07/03/17 History Procrit (Unknown Dose) 1 dose INJ Q7D 07/03/17 07/03/17 History Allergies Allergy/AdvReac Type Severity Reaction Status Date / Time sumatriptan [From Imitrex] Allergy Swelling Verified 07/03/17 15:19 sumatriptan succinate Allergy Swelling Verified 07/03/17 15:19 [From Imitrex] cephalexin [From Keflex] AdvReac Diarrhea Verified 07/03/17 15:19 Results CBC & Chem 7: 07/03/17 16:00 07/04/17 09:17
[2017-07-04] MEDS: ALLOPURINOL 100 MG TAB PO SCH (16:23)
[2017-07-04] MEDS: LEFLUNOMIDE 20 MG TAB PO SCH (16:23)
[2017-07-04] MEDS: DILTIAZEM CD 120 MG CAP.ER.24H PO SCH (16:23)
[2017-07-04] MEDS: METOPROLOL TARTRATE 5 MG/5 ML VIAL IVP SCH (16:27)
[2017-07-04] MEDS: SODIUM CHLORIDE 0.9% 1,000 ML IV SCH (16:33)
[2017-07-04] MEDS ORDERED: predniSONE 10 MG TAB PO SCH (17:30)
[2017-07-04] MEDS: FAMOTIDINE 20 MG TAB PO SCH (22:35)
[2017-07-04] MEDS: ATORVASTATIN 40 MG TAB PO SCH (22:35)
--- NOTE | 2017-07-05 00:07 | P.CON ---
Consult Note - . 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 Gill at [facility] on February 04, 2017. He had a recent hospitalization in May which time he was treated for sepsis secondary to urinary tract infection with culture positive for Klebsiella pneumoniae and previous to that urine culture for Enterococcus faecalis. Patient was initially treated with Unasyn and was discharged home on doxycycline. Patient was in his usual state of health until Tuesday morning. His left the home for about 1 hour to go to [place] and when she came back he had significant weakness and lethargy and fever. She called 911 and patient was brought into [facility] emergency center for evaluation. 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 Chest x-ray shows interstitial pulmonary edema, cardiogenic or noncardiogenic fluid overload or atypical pneumonia. He had a white count of 8.4, hemoglobin 11.4, platelet count 132 which is low from his baseline. BUN 96 and creatinine 2.3. Troponin 0.132. Urinalysis was clear, blood moderate, leukoesterase small, RBC 75, WBCs 26, bacteria many. Urine culture and blood culture are in progress. Patient was started on doxycycline and admitted to the selective care unit and consults requested with nephrology and cardiology. His is very concerned as he is more lethargic this morning than when she left him last evening. Patient failed bedside swallow evaluation and speech therapy is unable to evaluate due to mental status changes. Patient is not staying awake and following only minimal direction. Please see the consult note as dictated by nurse practitioner Mrs. Ivory Cano. This pleasant 77 showed gentleman has been asked was multiple times is well- known to the service. Now presents with evidence of significant sepsis. Appears to have a urinary tract infection and with his history ampicillin sulbactam will be utilized until we have further information. Ongoing concern will be to the redevelopment of C. diff colitis given his history of prior events and fecal transplantation. The patient is very unhappy that he is so ill at this time. His psoriatic arthritis is stable at the moment. She has noted he does have leukocytosis and chronic renal failure. Urine culture does reveal evidence of a gram-negative bacilli and this is the likely source of his current sepsis. Probiotic therapy to be utilized if he can tolerate. I agree with evaluation, assessment and plan is dictated by nurse practitioner Mrs. Ivory Cano.
[2017-07-05] MEDS: METOPROLOL TARTRATE 5 MG/5 ML VIAL IVP SCH ×5 (00:08→23:39)
[2017-07-05 06:46] LABS: Calcium 8.4 mg/dL (8.4-10.2)
--- NOTE | 2017-07-05 09:07 | P.PN ---
Subjective Patient is seen in follow-up for acute kidney injury on chronic kidney disease. 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 Patient presented to the hospital with generalized weakness and altered mental status. He is noted to have UTI. Currently maintained on Lasix 40 mg IV twice daily. Creatinine is up to 2.7 today. His mentation has improved. He failed bedside swallow evaluation and is scheduled for barium swallow evaluation today. Vital signs are stable. General: The patient appeared well nourished and normally developed. HEENT: Head exam is unremarkable. Neck is without jugular venous distension. LUNGS: Lungs are clear to auscultation and percussion. Breath sounds decreased. HEART: Rate and Rhythm are regular. First and second heart sounds normal. No murmurs, rubs or gallops. ABDOMEN: Abdominal exam reveals normal bowel sounds. Non-tender and non- distended. No evidence of peritonitis. EXTREMITITES: 1+ edema. Objective - Vital Signs Vital signs: Vital Signs Temp 97 F L 07/05/17 04:00 Pulse 70 07/05/17 04:00 Resp 20 07/05/17 04:00 BP 160/87 07/05/17 04:00 Pulse Ox 93 L 07/05/17 04:00 Intake & Output 07/04/17 07/05/17 07/05/17 18:59 06:59 18:59 Intake Total 260 340 Output Total 200 Balance 260 140 Weight 101 kg Intake: Intake, IV Titration 260 340 Amount Ampicillin-Sulbactam 3 gm 100 100 In Sodium Chloride 0.9% 100 ml @ 100 mls/hr IVPB Q12HR NEW Rx#:[id number] Sodium Chloride 0.9% 1, 160 240 000 ml @ 20 mls/hr IV . Q24H NEW Rx#:[id number] Output: Urine 200 Other: Voiding Method Urinal Urinal Diaper Diaper # Voids 1 # Bowel Movements 1 - Labs CBC & Chem 7: 07/03/17 16:00 07/05/17 06:05 Labs: Abnormal Lab Results - Last 24 Hours (Table) 07/04/17 07/05/17 Range/Units 09:17 06:05 BUN 94 H* 106 H* (9-20) mg/dL Creatinine 2.43 H 2.71 H (0.66-1.25) mg/dL Glucose 100 H 122 H (74-99) mg/dL Microbiology - Last 24 Hours (Table) 07/03/17 16:00 Blood Culture - Final Blood 07/03/17 16:49 Urine Culture - Preliminary Urine,Catheterized Gram Neg Bacilli Assessment and Plan Plan: Assessment: #1. Nonoliguric acute kidney injury secondary to ATN secondary to cardiorenal syndrome. BNP was elevated at 17,000. Also component of infection. #2. Altered mental status likely related to infectious etiology. Improved. #3. Volume overload. #4. History of diastolic CHF. #5. Chronic kidney disease stage III secondary to biopsy-proven FSGS with baseline creatinine in the range of 1.7-2. His recent creatinine has been closer to 2.2-2.4 range. He is maintained on prednisone 10 mg daily as well as Prograf 1 mg daily for immunosuppression as an outpatient. #6. UTI with urine culture positive for gram-negative bacilli. Continue with antibiotics per infectious disease recommendations. Plan: Continue Lasix 40 mg IV twice daily. Maintain Prograf if able to tolerate oral pills. Since he is not able to tolerate oral prednisone at this time, continue with Solu-Medrol 20 mg IV twice daily. Avoid nephrotoxic agents and hypotensive episodes. Hold antihypertensives for systolic blood pressure less than 120. Repeat electrolytes in the morning. I will also decreased Neurontin to 300 mg once daily. Barium swallow evaluation today.
[2017-07-05] MEDS: AMPICILLIN-SULBACTAM 3 GM in SODIUM CHLORIDE 0.9% 100 ML IVPB SCH ×2 (10:05→20:26)
[2017-07-05] MEDS: ALLOPURINOL 100 MG TAB PO SCH (10:06)
[2017-07-05] MEDS: TAMSULOSIN 0.4 MG CAP.ER.24H PO SCH ×2 (10:07→20:26)
[2017-07-05] MEDS: ISOSORBIDE MONONITRATE ER 30 MG TAB.ER.24H PO SCH (10:07)
[2017-07-05] MEDS: APIXABAN 2.5 MG TABLET PO SCH ×2 (10:07→20:26)
[2017-07-05] MEDS: GABAPENTIN 300 MG CAP PO SCH ×2 (10:07→19:44)
[2017-07-05] MEDS: CALCIUM CARB-VIT D 500MG-200UN 1 EACH TAB PO SCH (10:08)
[2017-07-05] MEDS: LISINOPRIL 10 MG TAB PO SCH (10:08)
[2017-07-05] MEDS: LACTOBACILLUS ACIDOPH & BULGAR 1 EACH PACKET PO SCH (10:10)
[2017-07-05] MEDS: TACROLIMUS 1 MG CAP PO SCH (10:14)
[2017-07-05] MEDS: methylPREDNISolone SOD SUCCI 40 MG/ML 1 ML VIAL IV SCH ×2 (10:14→20:26)
[2017-07-05] MEDS: FUROSEMIDE 10 MG/ML 4 ML VIAL IV SCH ×2 (10:15→20:26)
--- NOTE | 2017-07-05 11:01 | FL ---
MODIFIED SWALLOW / DEGLUTITION STUDY DATE OF EXAM: 07/05/2017 CLINICAL HISTORY: 77-year-old male presents with UTI, gurgly at the bedside, assess for aspiration, D ysphagia. TECHNIQUE: Deglutition study is performed utilizing thin liquid barium, honey and nectar thick liqui d barium, barium thick applesauce, and barium coated cracker. COMPARISON: None. FINDINGS: The oral and pharyngeal phases show satisfactory initiation and propagation with all modalities teste d. Normal mastication is seen with solid modalities tested. There is trace silent aspiration noted with thin liquid consistency. This is improved with bolus control. No additional penetration or aspir ation seen with any of the other modalities tested. No significant pharyngeal residue was appreciate d. Fusion changes in the mid to lower cervical spine. IMPRESSION: Trace silent aspiration with thin liquids. This is improved with bolus control. Please refer to pablo bautista therapist notes for further details if necessary.
--- NOTE | 2017-07-05 13:29 | P.PN ---
Subjective Progress Note Date: 07/05/17 This is a 77-year-old gentleman with history of hypertension, hyperlipidemia, prior CVA, chronic renal failure, chronic persistent atrial fibrillation, who was brought to the hospital by his because of weakness and lethargy. According to the , patient has not been eating or drinking much at home as well. EKG on arrival here showed atrial fibrillation with a moderately rapid ventricular response, right bundle branch block pattern. Chest x-ray shows diffuse reticular interstitial obesity which may represent interstitial pulmonary edema and cardiogenic or noncardiogenic fluid overload, or atypical pneumonia. Temperature on arrival here 101.3, blood pressure 158/90 , 97% on 4 L of oxygen. Temperature this morning 99.5, heart rate 104, blood pressure 136/96, 92% on 3 L of oxygen. White blood cell count 8.4, hemoglobin 11.4, platelet count 132. Sodium 140, potassium 3.9, BUN 96, creatinine 2.3. Troponin 0.13, BNP level 17,000. Positive UTI. At the time of my examination this morning, patient is mildly confused, appears to be short of breath, however it doesn't complain of feeling short of breath. 07/05/2016 Patient seen and examined this morning, much more alert today. His weight is down 2 kg today. Diuresing well on IV Lasix. Continues to be on 40 mg every 12 hourly. BUN 106, creatinine 2.7, potassium 4.0. Patient did fail his bedside swallow evaluation and is scheduled for barium swallow. Objective - Vital Signs Vital signs: Vital Signs Temp 98 F 07/05/17 08:00 Pulse 58 L 07/05/17 08:00 Resp 18 07/05/17 08:00 BP 168/81 07/05/17 08:00 Pulse Ox 94 L 07/05/17 08:00 Intake & Output 07/04/17 07/05/17 07/05/17 18:59 06:59 18:59 Intake Total 260 340 240 Output Total 200 Balance 260 140 240 Weight 101 kg Intake: Intake, IV Titration 260 340 Amount Ampicillin-Sulbactam 3 gm 100 100 In Sodium Chloride 0.9% 100 ml @ 100 mls/hr IVPB Q12HR NEW Rx#:[id number] Sodium Chloride 0.9% 1, 160 240 000 ml @ 20 mls/hr IV . Q24H NEW Rx#:[id number] Oral 240 Output: Urine 200 Other: Voiding Method Urinal Urinal Diaper Diaper # Voids 1 2 # Bowel Movements 1 2 - Exam PHYSICAL EXAMINATION: HEENT: Head is atraumatic, normocephalic. Pupils equal, round. Neck is supple. There is elevated jugular venous pressure. HEART EXAMINATION: Heart S1 and S2 irregularly irregular a systolic murmur is heard CHEST EXAMINATION: Lungs reveal diminished air entry bilaterally with crackles to the bases bilaterally. ABDOMEN: Soft, obese, nontender. Bowel sounds are heard. No organomegaly noted. EXTREMITIES: 2+ peripheral pulses with 1-2+ evidence of peripheral edema and no calf tenderness noted. NEUROLOGIC patient is awake, alert , oriented 3. . - Labs CBC & Chem 7: 07/03/17 16:00 07/05/17 06:05 Labs: Abnormal Lab Results - Last 24 Hours (Table) 07/05/17 Range/Units 06:05 BUN 106 H* (9-20) mg/dL Creatinine 2.71 H (0.66-1.25) mg/dL Glucose 122 H (74-99) mg/dL Microbiology - Last 24 Hours (Table) 07/03/17 16:00 Blood Culture - Final Blood 07/03/17 16:49 Urine Culture - Preliminary Urine,Catheterized Gram Neg Bacilli Assessment and Plan Plan: Assessment and plan #1 symptoms of progressive weakness and lethargy. CAT scan of the brain was performed which revealed blurring of the chakraborty white junction in the watershed area of the right temporoparietal region, may represent subacute infarct. MRI could be performed for further evaluation. Moderate burden nonspecific white matter change and age-related volume loss. Positive temperature of 101 on arrival. Positive UTI. #2 atrial fibrillation with rapid ventricular response, patient has history of chronic persistent atrial fibrillation, on Eliquis for anticoagulation. #3 chronic renal failure stage III #4 hypertension Number 5 for borderline diabetes #6 hyperlipidemia #7 prior CVA #8 chronic anemia #9 abnormal troponin, likely secondary to abnormal renal function. #10 systolic congestive heart failure acute on chronic most recent echocardiogram with Doppler study was performed on May 16 which revealed an ejection fraction of 30-35%. Plan From cardiology's perspective, we'll recommend to continue patient on his current medications. We will continue to follow, continue to monitor intake and output along with daily weights, daily lytes BUN and creatinine. DNP note has been reviewed, I agree with a documented findings and plan of care. Patient was seen and examined.
[2017-07-05] MEDS: MULTIVITAMINS, THERA 1 EACH TAB PO SCH (13:52)
--- NOTE | 2017-07-05 16:55 | P.PN ---
Progress Note - Text Progress Note Date: 07/05/17 This is a pleasant 77 year patient rather extensive medical history. Patient's chronic stable medical conditions include hypertension, osteoarthritis, chronic kidney disease, nephrotic syndrome, underlying focal FSGS, congestive heart failure. Patient was brought into the ER after not feeling well. Admitted with bilateral pneumonia and CHF exacerbation, and uncontrolled atrial fibrillation Today-patient looking much better. Awake. Did tolerate her diet. Breathing better. Some cough is present. No sputum. Heart rate controlled to the 70s and 80s. Review of systems: Was done for constitutional, cardiovascular, GI, pulmonary. relevant finding as above Current medications are reviewed and include: IV Unasyn, Eliquis, Cardizem CD, 120 mg, IV Solu-Medrol 20 mg every 12, Lopressor 2.5 mg IV push every 6, IV Lasix VITAL SIGNS: afebrile, 70, 18, 160/87, 93% room air GENERAL: BMI 34.4, well built, laying in bed tired appearing lethargic but arousable. EYES: Pupils equal. Conjunctiva normal. HEENT: External appearance of nose and ears normal, oral cavity grossly normal, decreased hearing. NECK: JVD unable to assess; masses not palpable. HEART: a jugular heart soundsl; no edema. LUNGS: Respiratory rate increased, decreased breath sounds, some basal crackles. ABDOMEN: Soft, nontender, liver spleen not palpable, no masses palpable. LYMPHATICS: No lymph nodes palpable in the axilla and neck. PSYCH: far more awake today, answering questions. MUSCULOSKELETAL: Severe osteoarthritis especially in the hands , limited range of motion of the shoulders DERMATOLOGICAL: Chronic skin changes Investigations: potassium 4, BN 106, creatinine 2.71 Assessment: -Bilateral pneumonia, multilobar suspected gram-negative organism, causing sepsis present on admission - acute metabolic encephalopathy and acute deliriumfrom pneumonia, improving -Persistent Atrial fibrillation, with heart rate uncontrolled on admission, now improved -Acute on Chronic Congestive heart failure from systolic dysfunction EF 30-35% probably from underlying hypertensive heart disease -Hearing disorder -Hyperlipidemia -Essential hypertension -Chronic kidney disease stage III secondary to biopsy-proven prolonged FSGS to baseline creatinine closer to 2.2 maintained on prednisone and Prograf -Skin cancer -Psoriatic arthritis -Nephrotic syndrome with FSGS -Chronic back pain -Bilateral rotator cuff injuries -Chronic medical debility -Chronic gait dysfunction patient uses a walker at baseline -Acute renal failure likely from diuresis Plan: continue patient on IV Unasyn. Patient is on IV Lopressor and IV Lasix per cardiology. Follow labs closely. Overall prognosis is guarded. Keep a close eye and renal function which is slightly worse. Care was discussed with the patient
[2017-07-05] MEDS: LEFLUNOMIDE 20 MG TAB PO SCH (17:56)
[2017-07-05] MEDS: DILTIAZEM CD 120 MG CAP.ER.24H PO SCH (17:56)
[2017-07-05] MEDS: SODIUM CHLORIDE 0.9% 1,000 ML IV SCH (17:57)
[2017-07-05] MEDS: FAMOTIDINE 20 MG TAB PO SCH (20:26)
[2017-07-05] MEDS: ATORVASTATIN 40 MG TAB PO SCH (20:26)
[2017-07-05] MEDS: NYSTATIN 100,000UNIT/GM CREAM 30 GM TUBE TOPICAL SCH (22:08)
--- NOTE | 2017-07-05 22:26 | P.PN ---
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 Gill at [facility] on February 04, 2017. He had a recent hospitalization in May which time he was treated for sepsis secondary to urinary tract infection with culture positive for Klebsiella pneumoniae and previous to that urine culture for Enterococcus faecalis. Patient was initially treated with Unasyn and was discharged home on doxycycline. Patient was in his usual state of health until Tuesday morning. His left the home for about 1 hour to go to tenriism and when she came back he had significant weakness and lethargy and fever. She called 911 and patient was brought into [facility] emergency center for evaluation. 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 Chest x-ray shows interstitial pulmonary edema, cardiogenic or noncardiogenic fluid overload or atypical pneumonia. He had a white count of 8.4, hemoglobin 11.4, platelet count 132 which is low from his baseline. BUN 96 and creatinine 2.3. Troponin 0.132. Urinalysis was clear, blood moderate, leukoesterase small, RBC 75, WBCs 26, bacteria many. Urine culture and blood culture are in progress. Patient was started on doxycycline and admitted to the selective care unit and consults requested with nephrology and cardiology. His is very concerned as he is more lethargic this morning than when she left him last evening. Patient failed bedside swallow evaluation and speech therapy is unable to evaluate due to mental status changes. Patient is not staying awake and following only minimal direction. 07/05/2017 patient feels considerably better this afternoon. He is much stronger. Has been sitting up and is no longer feeling very short of breath. He's had some loose stool but without classic findings of C. diff so far. Patient relates that he is not chest pain or abdominal pain at this time. His chronic joint pain without acute change Objective - Vital Signs Vital signs: Vital Signs Temp 96.9 F L 07/05/17 16:00 Pulse 82 07/05/17 16:00 Resp 18 07/05/17 16:00 BP 128/74 07/05/17 16:00 Pulse Ox 92 L 07/05/17 16:00 Intake & Output 07/05/17 07/05/17 07/06/17 06:59 18:59 06:59 Intake Total 340 600 Output Total 200 Balance 140 600 Weight 101 kg 101 kg Intake: Intake, IV Titration 340 240 Amount Ampicillin-Sulbactam 3 gm 100 100 In Sodium Chloride 0.9% 100 ml @ 100 mls/hr IVPB Q12HR NEW Rx#:[id number] Sodium Chloride 0.9% 1, 240 140 000 ml @ 20 mls/hr IV . Q24H NEW Rx#:[id number] Oral 360 Output: Urine 200 Other: Voiding Method Urinal Diaper # Voids 1 # Bowel Movements 2 - Exam Gen: This is an obese 77-year-old male. He is in bed and is moaning occasionally. He does not appear to be in any respiratory distress. HEENT: Head is atraumatic, normocephalic. Pupils equal, round. Sclerae is anicteric. Mucous membranes of the mouth are very dry. NECK: Supple. + JVD. No lymphadenopathy. No thyromegaly. LUNGS: bilateral crackles. No intercostal retractions. HEART: irregular rate and rhythm. systolic murmur. ABDOMEN: Soft. Bowel sounds are present. No masses. No tenderness. EXTREMITIES: 1-2+ bilateral pedal edema without erythema to the lower extremities.. No calf tenderness. Dorsalis pedis +2 bilaterally. NEUROLOGICAL: Patient is now awake alert interactive much more like his baseline. His significant fatigue and malaise have resolved. - Labs CBC & Chem 7: 07/03/17 16:00 07/05/17 06:05 Labs: Abnormal Lab Results - Last 24 Hours (Table) 07/05/17 Range/Units 06:05 BUN 106 H* (9-20) mg/dL Creatinine 2.71 H (0.66-1.25) mg/dL Glucose 122 H (74-99) mg/dL Microbiology - Last 24 Hours (Table) 07/03/17 16:00 Blood Culture Gram Stain - Preliminary Blood 07/03/17 16:49 Urine Culture - Final Urine,Catheterized Klebsiella pneumoniae 07/03/17 16:00 Blood Culture - Final Blood Laboratory Results WBC 8.4 k/uL (3.8-10.6) 07/03/17 16:00 RBC 3.80 m/uL (4.30-5.90) L 07/03/17 16:00 Hgb 11.4 gm/dL (13.0-17.5) L 07/03/17 16:00 Hct 37.6 % (39.0-53.0) L 07/03/17 16:00 MCV 99.2 fL (80.0-100.0) 07/03/17 16:00 MCH 30.0 pg (25.0-35.0) 07/03/17 16:00 MCHC 30.3 g/dL (31.0-37.0) L 07/03/17 16:00 RDW 15.7 % (11.5-15.5) H 07/03/17 16:00 Plt Count 132 k/uL (150-450) L 07/03/17 16:00 Neutrophils % 84 % 07/03/17 16:00 Lymphocytes % 5 % 07/03/17 16:00 Monocytes % 8 % 07/03/17 16:00 Eosinophils % 1 % 07/03/17 16:00 Basophils % 1 % 07/03/17 16:00 Neutrophils # 7.0 k/uL (1.3-7.7) 07/03/17 16:00 Lymphocytes # 0.4 k/uL (1.0-4.8) L 07/03/17 16:00 Monocytes # 0.6 k/uL (0-1.0) 07/03/17 16:00 Eosinophils # 0.1 k/uL (0-0.7) 07/03/17 16:00 Basophils # 0.1 k/uL (0-0.2) 07/03/17 16:00 Macrocytosis Slight 07/03/17 16:00 PT 9.9 sec (9.0-12.0) 07/03/17 16:00 INR 1.0 (<1.2) 07/03/17 16:00 APTT 24.1 sec (22.0-30.0) 07/03/17 16:00 Sodium 145 mmol/L (137-145) 07/05/17 06:05 Potassium 4.0 mmol/L (3.5-5.1) 07/05/17 06:05 Chloride 105 mmol/L (98-107) 07/05/17 06:05 Carbon Dioxide 30 mmol/L (22-30) 07/05/17 06:05 Anion Gap 10 mmol/L 07/05/17 06:05 BUN 106 mg/dL (9-20) H* 07/05/17 06:05 Creatinine 2.71 mg/dL (0.66-1.25) H 07/05/17 06:05 Est GFR (MDRD) Af Amer 28 (>60 ml/min/1.73 sqM) 07/05/17 06:05 Est GFR (MDRD) Non-Af 23 (>60 ml/min/1.73 sqM) 07/05/17 06:05 Glucose 122 mg/dL (74-99) H 07/05/17 06:05 Plasma Lactic Acid Jean Pierre 0.9 mmol/L (0.7-2.0) 07/03/17 16:00 Calcium 8.4 mg/dL (8.4-10.2) 07/05/17 06:05 Magnesium 2.0 mg/dL (1.6-2.3) 07/05/17 06:05 Total Bilirubin 0.4 mg/dL (0.2-1.3) 07/03/17 16:00 AST 29 U/L (17-59) 07/03/17 16:00 ALT 22 U/L (21-72) 07/03/17 16:00 Alkaline Phosphatase 84 U/L (38-126) 07/03/17 16:00 Total Creatine Kinase 41 U/L (55-170) L 07/03/17 16:00 CK-MB (CK-2) 0.6 ng/mL (0.0-2.4) 07/03/17 16:00 CK-MB (CK-2) Rel Index 1.5 07/03/17 16:00 Troponin I 0.132 ng/mL (0.000-0.034) H* 07/03/17 16:00 NT-Pro-B Natriuret Pep 14609 pg/mL 07/03/17 16:00 Total Protein 5.4 g/dL (6.3-8.2) L 07/03/17 16:00 Albumin 2.4 g/dL (3.5-5.0) L 07/03/17 16:00 Urine Color Yellow 07/03/17 16:49 Urine Appearance Clear (Clear) 07/03/17 16:49 Urine pH 6.0 (5.0-8.0) 07/03/17 16:49 Ur Specific Ideal 1.009 (1.001-1.035) 07/03/17 16:49 Urine Protein 3+ (Negative) H 07/03/17 16:49 Urine Glucose (UA) Negative (Negative) 07/03/17 16:49 Urine Ketones Negative (Negative) 07/03/17 16:49 Urine Blood Moderate (Negative) H 07/03/17 16:49 Urine Nitrite Negative (Negative) 07/03/17 16:49 Urine Bilirubin Negative (Negative) 07/03/17 16:49 Urine Urobilinogen <2.0 mg/dL (<2.0) 07/03/17 16:49 Ur Leukocyte Esterase Small (Negative) H 07/03/17 16:49 Urine RBC 75 /hpf (0-5) H 07/03/17 16:49 Urine WBC 26 /hpf (0-5) H 07/03/17 16:49 Ur Squamous Epith Cells <1 /hpf (0-4) 07/03/17 16:49 Urine Bacteria Many /hpf (None) H 07/03/17 16:49 Hyaline Casts 1 /lpf (0-2) 07/03/17 16:49 Urine Mucus Rare /hpf (None) H 07/03/17 16:49 C. difficile (EIA) Intrp Negative (Negative) 07/05/17 18:30 Influenza Type A RNA Not Detected (Not Detectd) 07/04/17 10:04 Influenza Type B (PCR) Not Detected (Not Detectd) 07/04/17 10:04 Microbiology 07/03/17 16:00 Blood Blood Culture Gram Stain - Preliminary 07/03/17 16:49 Urine,Catheterized Urine Culture - Final Klebsiella pneumoniae 07/03/17 16:00 Blood Blood Culture - Final Assessment and Plan (1) CHF (congestive heart failure) Current Visit: Yes Status: Acute Code(s): I50.9 - HEART FAILURE, UNSPECIFIED SNOMED Code(s): 82249163 (2) UTI (urinary tract infection) Narrative/Plan: This pleasant 77 showed gentleman has been asked was multiple times is well- known to the service. Now presents with evidence of significant sepsis. Appears to have a urinary tract infection and with his history ampicillin sulbactam will be utilized until we have further information. Ongoing concern will be to the redevelopment of C. diff colitis given his history of prior events and fecal transplantation. The patient is very unhappy that he is so ill at this time. His psoriatic arthritis is stable at the moment. She has noted he does have leukocytosis and chronic renal failure. Urine culture does reveal evidence of a gram-negative bacilli and this is the likely source of his current sepsis. Probiotic therapy to be utilized if he can tolerate. 07/05/2017 reveals the patient to be considerably improved. He is now awake alert interactive and generally feeling better. He ingested his dinner without troubles. He apparently Has had a loose stool but no evidence for C. diff at this moment. This patient improves and gets ready for discharge to home fortunately oral antibiotic therapy and discharged with doxycycline 100 mg orally twice per day Utilize complete the course of his klebsiella urinary tract infection. As before continue probiotic therapy as he tolerates. Diarrhea will be monitored. Current Visit: No Status: Acute Code(s): N39.0 - URINARY TRACT INFECTION, SITE NOT SPECIFIED SNOMED Code(s): 40423346 (3) Chronic renal failure Current Visit: Yes Status: Acute Code(s): N18.9 - CHRONIC KIDNEY DISEASE, UNSPECIFIED SNOMED Code(s): 67357138
[2017-07-06] MEDS: METOPROLOL TARTRATE 5 MG/5 ML VIAL IVP SCH ×2 (06:26→13:26)
[2017-07-06 06:51] LABS: Calcium 7.4 mg/dL (8.4-10.2); Potassium 3.7 mmol/L (3.5-5.1)
[2017-07-06] MEDS: GABAPENTIN 300 MG CAP PO SCH (08:27)
[2017-07-06] MEDS: CALCIUM CARB-VIT D 500MG-200UN 1 EACH TAB PO SCH (08:27)
[2017-07-06] MEDS: APIXABAN 2.5 MG TABLET PO SCH ×2 (08:27→21:59)
[2017-07-06] MEDS: ISOSORBIDE MONONITRATE ER 30 MG TAB.ER.24H PO SCH (08:27)
[2017-07-06] MEDS: LACTOBACILLUS ACIDOPH & BULGAR 1 EACH PACKET PO SCH (08:28)
[2017-07-06] MEDS: TACROLIMUS 1 MG CAP PO SCH (08:28)
[2017-07-06] MEDS: AMPICILLIN-SULBACTAM 3 GM in SODIUM CHLORIDE 0.9% 100 ML IVPB SCH (08:28)
[2017-07-06] MEDS: METOLAZONE 5 MG TAB PO SCH (08:28)
[2017-07-06] MEDS: TAMSULOSIN 0.4 MG CAP.ER.24H PO SCH ×2 (08:28→21:59)
--- NOTE | 2017-07-06 08:55 | P.PN ---
Subjective Patient is seen in follow-up for acute kidney injury on chronic kidney disease. 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 Patient presented to the hospital with generalized weakness and altered mental status. He is noted to have UTI. Blood culture is also positive for gram-negative bacilli. Currently maintained on Lasix 40 mg IV twice daily. Creatinine is up to 2.83 today. BUN is 122. His mentation has improved. He is now able to tolerate oral intake. Continues to have diarrhea. Vital signs are stable. General: The patient appeared well nourished and normally developed. HEENT: Head exam is unremarkable. Neck is without jugular venous distension. LUNGS: Lungs are clear to auscultation and percussion. Breath sounds decreased. HEART: Rate and Rhythm are regular. First and second heart sounds normal. No murmurs, rubs or gallops. ABDOMEN: Abdominal exam reveals normal bowel sounds. Non-tender and non- distended. No evidence of peritonitis. EXTREMITITES: 1+ edema. Objective - Vital Signs Vital signs: Vital Signs Temp 96.8 F L 07/06/17 04:00 Pulse 72 07/06/17 04:00 Resp 16 07/06/17 04:00 BP 132/77 07/06/17 04:00 Pulse Ox 93 L 07/06/17 04:00 Intake & Output 07/05/17 07/06/17 07/06/17 18:59 06:59 18:59 Intake Total 600 360 Balance 600 360 Weight 101 kg 103.5 kg Intake: Intake, IV Titration 240 Amount Ampicillin-Sulbactam 3 gm 100 In Sodium Chloride 0.9% 100 ml @ 100 mls/hr IVPB Q12HR NEW Rx#:[id number] Sodium Chloride 0.9% 1, 140 000 ml @ 20 mls/hr IV . Q24H NEW Rx#:[id number] Oral 360 360 Other: Voiding Method Diaper # Voids 1 3 # Bowel Movements 2 - Labs CBC & Chem 7: 07/03/17 16:00 07/06/17 06:19 Labs: Abnormal Lab Results - Last 24 Hours (Table) 07/06/17 Range/Units 06:19 BUN 122 H* (9-20) mg/dL Creatinine 2.83 H (0.66-1.25) mg/dL Glucose 168 H (74-99) mg/dL Calcium 7.4 L (8.4-10.2) mg/dL Microbiology - Last 24 Hours (Table) 07/03/17 16:00 Blood Culture Gram Stain - Preliminary Blood Blood Culture - Preliminary Gram Neg Bacilli 07/03/17 16:49 Urine Culture - Final Urine,Catheterized Klebsiella pneumoniae Assessment and Plan Plan: Assessment: #1. Nonoliguric acute kidney injury secondary to ATN secondary to cardiorenal syndrome. BNP was elevated at 17,000. Also component of infection. Creatinine up to 2.83 today. BUN is 122 which is partially related to steroids and diuresis. #2. Altered mental status related to infectious etiology. Improved. #3. Volume overload. #4. History of diastolic CHF. #5. Chronic kidney disease stage III secondary to biopsy-proven FSGS with baseline creatinine in the range of 1.7-2. His recent creatinine has been closer to 2.2-2.4 range. He is maintained on prednisone 10 mg daily as well as Prograf 1 mg daily for immunosuppression as an outpatient. #6. UTI with urine culture positive for Klebsiella. Blood cultures also positive for gram-negative bacilli. Continue with antibiotics per infectious disease recommendations. Plan: I will decrease Lasix to 40 mg IV once daily. Discontinue IV steroids. Resume prednisone 10 mg once daily. Maintain Prograf. Avoid nephrotoxic agents and hypotensive episodes. Hold antihypertensives for systolic blood pressure less than 120. I will hold lisinopril for now. Repeat electrolytes in the morning. I have also decreased Neurontin to 300 mg once daily. Encouraged oral intake.
[2017-07-06] MEDS ORDERED: methylPREDNISolone SOD SUCCI 40 MG/ML 1 ML VIAL IV SCH (09:00)
[2017-07-06] MEDS: predniSONE 10 MG TAB PO SCH (09:04)
[2017-07-06] MEDS: hydrALAZINE HCL 25 MG TAB PO SCH ×2 (09:05→22:00)
[2017-07-06] MEDS: FUROSEMIDE 10 MG/ML 4 ML VIAL IV SCH (09:06)
[2017-07-06 11:39] VITALS: BMI 34.7
[2017-07-06] MEDS: MULTIVITAMINS, THERA 1 EACH TAB PO SCH (13:26)
[2017-07-06] MEDS: NYSTATIN 100,000UNIT/GM CREAM 30 GM TUBE TOPICAL SCH ×2 (13:26→22:00)
--- NOTE | 2017-07-06 14:42 | P.PN ---
Subjective Progress Note Date: 07/06/17 This is a 77-year-old gentleman with history of hypertension, hyperlipidemia, prior CVA, chronic renal failure, chronic persistent atrial fibrillation, who was brought to the hospital by his because of weakness and lethargy. According to the , patient has not been eating or drinking much at home as well. EKG on arrival here showed atrial fibrillation with a moderately rapid ventricular response, right bundle branch block pattern. Chest x-ray shows diffuse reticular interstitial obesity which may represent interstitial pulmonary edema and cardiogenic or noncardiogenic fluid overload, or atypical pneumonia. Temperature on arrival here 101.3, blood pressure 158/90 , 97% on 4 L of oxygen. Temperature this morning 99.5, heart rate 104, blood pressure 136/96, 92% on 3 L of oxygen. White blood cell count 8.4, hemoglobin 11.4, platelet count 132. Sodium 140, potassium 3.9, BUN 96, creatinine 2.3. Troponin 0.13, BNP level 17,000. Positive UTI. At the time of my examination this morning, patient is mildly confused, appears to be short of breath, however it doesn't complain of feeling short of breath. 07/05/2016 Patient seen and examined this morning, much more alert today. His weight is down 2 kg today. Diuresing well on IV Lasix. Continues to be on 40 mg every 12 hourly. BUN 106, creatinine 2.7, potassium 4.0. Patient did fail his bedside swallow evaluation and is scheduled for barium swallow. 07/06/2016 Patient seen and examined this morning, he was noted to have positive blood cultures. Being followed by infectious disease. He was decreased to daily dose of IV Lasix by Dr. Hutchins. Maintaining in normal sinus rhythm. Blood pressure 126/70 with a heart rate in the 70s. We will increase his dose of beta jessica to 25 mg one tablet by mouth twice a day today. Objective - Vital Signs Vital signs: Vital Signs Temp 97 F L 07/06/17 12:00 Pulse 77 07/06/17 12:00 Resp 16 07/06/17 12:00 BP 126/75 07/06/17 12:00 Pulse Ox 97 07/06/17 12:00 Intake & Output 07/05/17 07/06/17 07/06/17 18:59 06:59 18:59 Intake Total 600 360 240 Balance 600 360 240 Weight 101 kg 103.5 kg 103.5 kg Intake: Intake, IV Titration 240 Amount Ampicillin-Sulbactam 3 gm 100 In Sodium Chloride 0.9% 100 ml @ 100 mls/hr IVPB Q12HR [facility] Rx#:[id number] Sodium Chloride 0.9% 1, 140 000 ml @ 20 mls/hr IV . Q24H [facility] Rx#:[id number] Oral 360 360 240 Other: Voiding Method Diaper Diaper # Voids 1 3 1 # Bowel Movements 2 1 - Exam PHYSICAL EXAMINATION: HEENT: Head is atraumatic, normocephalic. Pupils equal, round. Neck is supple. There is elevated jugular venous pressure. HEART EXAMINATION: Heart S1 and S2 irregularly irregular a systolic murmur is heard CHEST EXAMINATION: Lungs reveal diminished air entry bilaterally with crackles to the bases bilaterally. ABDOMEN: Soft, obese, nontender. Bowel sounds are heard. No organomegaly noted. EXTREMITIES: 2+ peripheral pulses with 1-2+ evidence of peripheral edema and no calf tenderness noted. NEUROLOGIC patient is awake, alert , oriented 3. . - Labs CBC & Chem 7: 07/03/17 16:00 07/06/17 06:19 Labs: Abnormal Lab Results - Last 24 Hours (Table) 07/06/17 Range/Units 06:19 BUN 122 H* (9-20) mg/dL Creatinine 2.83 H (0.66-1.25) mg/dL Glucose 168 H (74-99) mg/dL Calcium 7.4 L (8.4-10.2) mg/dL Microbiology - Last 24 Hours (Table) 07/03/17 16:00 Blood Culture Gram Stain - Preliminary Blood Blood Culture - Preliminary Gram Neg Bacilli 07/03/17 16:49 Urine Culture - Final Urine,Catheterized Klebsiella pneumoniae Assessment and Plan Plan: Assessment and plan #1 symptoms of progressive weakness and lethargy. CAT scan of the brain was performed which revealed blurring of the chakraborty white junction in the watershed area of the right temporoparietal region, may represent subacute infarct. MRI could be performed for further evaluation. Moderate burden nonspecific white matter change and age-related volume loss. Positive temperature of 101 on arrival. Positive UTI. #2 atrial fibrillation with rapid ventricular response, patient has history of chronic persistent atrial fibrillation, on Eliquis for anticoagulation. #3 chronic renal failure stage III #4 hypertension Number 5 for borderline diabetes #6 hyperlipidemia #7 prior CVA #8 chronic anemia #9 abnormal troponin, likely secondary to abnormal renal function. #10 systolic congestive heart failure acute on chronic most recent echocardiogram with Doppler study was performed on May 16 which revealed an ejection fraction of 30-35%. Plan From cardiology's perspective, increase beta jessica to 25 mg one tablet by mouth twice a day today. From cardiology's perspective, we'll follow this patient with you now on an as-needed basis only, please don't hesitate to call with any questions. DNP note has been reviewed, I agree with a documented findings and plan of care. Patient was seen and examined.
[2017-07-06] MEDS: SODIUM CHLORIDE 0.9% 1,000 ML IV SCH (15:14)
--- NOTE | 2017-07-06 15:57 | P.PN ---
Progress Note - Text Progress Note Date: 07/06/17 Presenting complaint: Tired Interval history: This is a pleasant 77 year patient rather extensive medical history. Patient's chronic stable medical conditions include hypertension, osteoarthritis, chronic kidney disease, nephrotic syndrome, underlying focal FSGS, congestive heart failure. Patient was brought into the ER after not feeling well. Admitted with bilateral pneumonia, UTI and positive blood cultures and CHF exacerbation, and uncontrolled atrial fibrillation Today-far more awake. Starting a diet. Patient is going to sinus rhythm. at the bedside. Review of systems: Was done for constitutional, cardiovascular, GI, pulmonary. relevant finding as above Current medications are reviewed and include: IV Unasyn, Eliquis, Cardizem CD, 120 mg, and is on 10 mg,, Lopressor 2.5 mg IV push every 6, IV Lasix 40 mg daily VITAL SIGNS: 97, 77, 16, 126/75, 97% room air GENERAL: . Laying in bed awake comfortable EYES: Pupils equal. Conjunctiva normal. HEENT: External appearance of nose and ears normal, oral cavity grossly normal, decreased hearing. NECK: JVD unable to assess; masses not palpable. HEART: Distant heart sounds; no edema. LUNGS: Respiratory rate increased, decreased breath sounds, some basal crackles. ABDOMEN: Soft, nontender, liver spleen not palpable, no masses palpable. LYMPHATICS: No lymph nodes palpable in the axilla and neck. PSYCH: AAO 3 would affect normal. MUSCULOSKELETAL: Severe osteoarthritis especially in the hands , limited range of motion of the shoulders DERMATOLOGICAL: Chronic skin changes Investigations: No labs from today Urine culture positive for Klebsiella Pneumoniae Blood Culture Positive for Gram-Negative Bacilli from July 03 Assessment: -Bilateral pneumonia, multilobar suspected gram-negative organism, causing sepsis present on admission -Acute UTI with positive culture growing Klebsiella pneumoniae, with positive blood cultures - acute metabolic encephalopathy and acute deliriumfrom pneumonia, improving -Paroxysmal Atrial fibrillation, with heart rate uncontrolled on admission, now into sinus rhythm -Acute on Chronic Congestive heart failure from systolic dysfunction EF 30-35% probably from underlying hypertensive heart disease, improving -Hearing disorder -Hyperlipidemia -Essential hypertension -Chronic kidney disease stage III secondary to biopsy-proven prolonged FSGS to baseline creatinine closer to 2.2 maintained on prednisone and Prograf -Skin cancer -Psoriatic arthritis -Nephrotic syndrome with FSGS -Chronic back pain -Bilateral rotator cuff injuries -Chronic medical debility -Chronic gait dysfunction patient uses a walker at baseline -Acute renal failure likely from diuresis Plan: We will change the IV Lopressor to by mouth Lopressor. Per nephrology patient been cut back to IV Lasix once a day. Follow up lites closely. Care was discussed with The patient lives at the bedside. Questions were answered. Await blood culture results to come back
[2017-07-06] MEDS: ALLOPURINOL 100 MG TAB PO SCH (16:58)
[2017-07-06] MEDS: LEFLUNOMIDE 20 MG TAB PO SCH (16:59)
[2017-07-06] MEDS: DILTIAZEM CD 120 MG CAP.ER.24H PO SCH (16:59)
[2017-07-06 21:04] LABS: Glucose,Whole Blood 285 mg/dL (75-99)
[2017-07-06] MEDS: ATORVASTATIN 40 MG TAB PO SCH (21:59)
[2017-07-06] MEDS: METOPROLOL TARTRATE 25 MG TAB PO SCH (21:59)
[2017-07-06] MEDS: FAMOTIDINE 20 MG TAB PO SCH (21:59)
[2017-07-06] MEDS: CIPROFLOXACIN HCL 250 MG TAB PO SCH (23:02)
[2017-07-07 07:24] LABS: Glucose,Whole Blood 190 mg/dL (75-99)
[2017-07-07 08:39] LABS: Calcium 7.2 mg/dL (8.4-10.2); Potassium 3.3 mmol/L (3.5-5.1)
[2017-07-07] MEDS ORDERED: POTASSIUM CHLORIDE ER 20 MEQ TAB.ER PO STA (09:20)
[2017-07-07] MEDS: APIXABAN 2.5 MG TABLET PO SCH ×2 (10:06→22:11)
[2017-07-07] MEDS: hydrALAZINE HCL 25 MG TAB PO SCH ×2 (10:07→22:11)
[2017-07-07] MEDS: REPAGLINIDE 1 MG TAB PO SCH ×3 (10:07→16:58)
[2017-07-07] MEDS: ISOSORBIDE MONONITRATE ER 30 MG TAB.ER.24H PO SCH (10:07)
[2017-07-07] MEDS: FUROSEMIDE 10 MG/ML 4 ML VIAL IV SCH (10:07)
[2017-07-07] MEDS: TAMSULOSIN 0.4 MG CAP.ER.24H PO SCH ×2 (10:08→22:11)
[2017-07-07] MEDS: predniSONE 10 MG TAB PO SCH (10:08)
[2017-07-07] MEDS: TACROLIMUS 1 MG CAP PO SCH (10:10)
[2017-07-07] MEDS: CALCIUM CARB-VIT D 500MG-200UN 1 EACH TAB PO SCH (10:10)
[2017-07-07] MEDS: CIPROFLOXACIN HCL 250 MG TAB PO SCH ×2 (10:10→22:11)
[2017-07-07] MEDS: MULTIVITAMINS, THERA 1 EACH TAB PO SCH (10:10)
[2017-07-07] MEDS: LACTOBACILLUS ACIDOPH & BULGAR 1 EACH PACKET PO SCH (10:11)
[2017-07-07] MEDS: GABAPENTIN 300 MG CAP PO SCH (10:11)
[2017-07-07] MEDS: METOPROLOL TARTRATE 25 MG TAB PO SCH ×2 (10:11→22:11)
[2017-07-07] MEDS: NYSTATIN 100,000UNIT/GM CREAM 30 GM TUBE TOPICAL SCH ×2 (10:12→23:27)
--- NOTE | 2017-07-07 10:25 | P.PN ---
Subjective Patient is seen in follow-up for acute kidney injury on chronic kidney disease. 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 Patient presented to the hospital with generalized weakness and altered mental status. He is noted to have UTI. Blood culture is also positive for Klebsiella. Currently maintained on Lasix 40 mg IV once daily. Creatinine is up to 2.93 today. BUN is 128. His mentation has improved. He is now able to tolerate oral intake. Continues to have diarrhea. Vital signs are stable. General: The patient appeared well nourished and normally developed. HEENT: Head exam is unremarkable. Neck is without jugular venous distension. LUNGS: Lungs are clear to auscultation and percussion. Breath sounds decreased. HEART: Rate and Rhythm are regular. First and second heart sounds normal. No murmurs, rubs or gallops. ABDOMEN: Abdominal exam reveals normal bowel sounds. Non-tender and non- distended. No evidence of peritonitis. EXTREMITITES: 1+ edema. Objective - Vital Signs Vital signs: Vital Signs Temp 96.8 F L 07/07/17 07:00 Pulse 61 07/07/17 07:00 Resp 18 07/07/17 07:00 BP 137/74 07/07/17 07:00 Pulse Ox 95 07/07/17 07:00 Intake & Output 07/06/17 07/07/17 07/07/17 18:59 06:59 18:59 Intake Total 480 450 Output Total 2 Balance 478 450 Weight 103.5 kg 104.5 kg Intake: Oral 480 450 Output: Urine/Stool Mix 2 Other: Voiding Method Diaper Diaper # Voids 1 4 2 # Bowel Movements 1 4 2 - Labs CBC & Chem 7: 07/03/17 16:00 07/07/17 07:32 Labs: Abnormal Lab Results - Last 24 Hours (Table) 07/06/17 07/07/17 07/07/17 Range/Units 20:58 07:19 07:32 Potassium 3.3 L (3.5-5.1) mmol/L BUN 128 H* (9-20) mg/dL Creatinine 2.93 H (0.66-1.25) mg/dL Glucose 130 H (74-99) mg/dL POC Glucose (mg/dL) 285 H 190 H (75-99) mg/dL Calcium 7.2 L (8.4-10.2) mg/dL Microbiology - Last 24 Hours (Table) 07/03/17 16:00 Blood Culture Gram Stain - Final Blood Blood Culture - Final Klebsiella pneumoniae Assessment and Plan Plan: Assessment: #1. Nonoliguric acute kidney injury secondary to ATN secondary to cardiorenal syndrome. BNP was elevated at 17,000. Also component of infection. Creatinine up to 2.93 today. BUN is 1228which is partially related to steroids and diuresis. #2. Altered mental status related to infectious etiology. Improved. #3. Volume overload. #4. History of diastolic CHF. #5. Chronic kidney disease stage III secondary to biopsy-proven FSGS with baseline creatinine in the range of 1.7-2. His recent creatinine has been closer to 2.2-2.4 range. He is maintained on prednisone 10 mg daily as well as Prograf 1 mg daily for immunosuppression as an outpatient. #6. UTI with urine culture positive for Klebsiella. Blood cultures also positive for Klebsiella as well. Continue with antibiotics per infectious disease recommendations. #7. Hypokalemia due to diuresis. Magnesium replete. Plan: Continue lasix 40 mg IV once daily. Continue prednisone 10 mg once daily. Maintain Prograf. Avoid nephrotoxic agents and hypotensive episodes. Hold antihypertensives for systolic blood pressure less than 120. I will continue to hold lisinopril for now. Repeat electrolytes in the morning. I have also decreased Neurontin to 300 mg once daily. Encouraged oral intake. Replace K - 40 meq today.
[2017-07-07 12:27] LABS: Glucose,Whole Blood 164 mg/dL (75-99)
[2017-07-07] MEDS: DIPHENOX-ATROP 2.5-0.025 MG 1 EACH TAB PO SCH ×3 (14:24→22:11)
[2017-07-07] MEDS: ALLOPURINOL 100 MG TAB PO SCH (16:58)
[2017-07-07] MEDS: DILTIAZEM CD 120 MG CAP.ER.24H PO SCH (16:59)
[2017-07-07] MEDS: LEFLUNOMIDE 20 MG TAB PO SCH (16:59)
[2017-07-07 17:10] LABS: Glucose,Whole Blood 183 mg/dL (75-99)
[2017-07-07] MEDS: SODIUM CHLORIDE 0.9% 1,000 ML IV SCH (17:10)
[2017-07-07 20:19] LABS: Hemoglobin A1C 5.8 % (4.0-6.0)
[2017-07-07 20:32] LABS: Glucose,Whole Blood 101 mg/dL (75-99)
--- NOTE | 2017-07-07 21:45 | PN ---
PROGRESS NOTE DATE OF SERVICE: July 07, 2017. PRESENTING COMPLAINT: Tired. INTERVAL HISTORY: This patient with multiple problems including hypertension, osteoarthritis, chronic kidney disease, nephrotic syndrome with underlying focal FSGS, congestive heart failure, presented with UTI with sepsis, pneumonia, CHF exacerbation, uncontrolled atrial fibrillation. Overall doing much better. Tolerating a diet and having multiple stools. C diff has been ruled out. The patient has been in sinus rhythm. Renal function is a bit worse. PHYSICAL EXAMINATION: Afebrile, pulse 61, respiratory 18, blood pressure 137/74, pulse ox 95% on room air. General appearance: Lying in bed, awake. Eyes: Pupils equal. Conjunctivae normal. HEENT: External appearance of nose and ears normal. Oral cavity normal. Decreased hearing. Neck JVD unable to assess. Mass not palpable. Cardiovascular: Heart sounds distant. No edema. Respiratory: Lungs decreased breath sounds. ABDOMEN: Soft nontender. Liver and spleen not palpable. Psychiatry: Alert and oriented times three. Mood and affect normal. Musculoskeletal: Severe osteoarthritis especially in the hands. Limited range of motion of the shoulders. Dermatological: Chronic skin changes. INVESTIGATIONS: Potassium 3.3, BUN 128, creatinine 2.93. Accu-Cheks are noted. C diff negative. ASSESSMENT: 1. Acute urinary tract infection with positive cultures growing Klebsiella pneumoniae, clinical improvement. 2. Bilateral pneumonias, multilobar, suspect gram-negative organism causing sepsis, present on admission with clinical improvement. 3. Acute metabolic encephalopathy and acute delirium from pneumonia much improved. 4. Paroxysmal atrial fibrillation. Heart rate was uncontrolled on admission, now into sinus rhythm. 5. Acute on chronic congestive heart failure from systolic dysfunction, ejection fraction 30-35% from underlying hypertensive heart disease, improved. 6. Chronic hearing disorder. 7. Hyperlipidemia. 8. Essential hypertension. 9. Chronic kidney disease stage 3 secondary to biopsy-proven FSGS, baseline creatinine of 2.2, maintained on prednisone and Prograf. 10.Skin cancer. 11.Psoriatic arthritis. 12.Nephrotic syndrome with FSGS. 13.Chronic back pain. 14.Bilateral rotator cuff injuries. 15.Chronic medical debility. 16.Chronic gait dysfunction baseline uses a walker. 17.Acute renal failure from diuresis, likely prerenal. 18.Acute antibiotic associated diarrhea. PLAN: Continue current medication and treatment plan. The patient is currently on Cipro, Lomotil was added. Care was discussed with the patient and . Need the renal function to stabilize. The patient can be discharged. If it is okay with Pulmonary, then Lasix can be discontinued. We will hold off the morning dose of Zaroxolyn. VINL / IJN: [id number] /
[2017-07-07] MEDS: FAMOTIDINE 20 MG TAB PO SCH (22:11)
[2017-07-07] MEDS: ATORVASTATIN 40 MG TAB PO SCH (22:11)
[2017-07-07] MEDS: traMADol 50 MG TAB PO PRN (22:22)
[2017-07-07] MEDS ORDERED: ONDANSETRON 4 MG/2 ML VIAL IVP PRN (22:33)
--- NOTE | 2017-07-07 23:56 | P.PN ---
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 Gill at [facility] on February 04, 2017. He had a recent hospitalization in May which time he was treated for sepsis secondary to urinary tract infection with culture positive for Klebsiella pneumoniae and previous to that urine culture for Enterococcus faecalis. Patient was initially treated with Unasyn and was discharged home on doxycycline. Patient was in his usual state of health until Tuesday morning. His left the home for about 1 hour to go to spiritism and when she came back he had significant weakness and lethargy and fever. She called 911 and patient was brought into [facility] emergency center for evaluation. 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 Chest x-ray shows interstitial pulmonary edema, cardiogenic or noncardiogenic fluid overload or atypical pneumonia. He had a white count of 8.4, hemoglobin 11.4, platelet count 132 which is low from his baseline. BUN 96 and creatinine 2.3. Troponin 0.132. Urinalysis was clear, blood moderate, leukoesterase small, RBC 75, WBCs 26, bacteria many. Urine culture and blood culture are in progress. Patient was started on doxycycline and admitted to the selective care unit and consults requested with nephrology and cardiology. His is very concerned as he is more lethargic this morning than when she left him last evening. Patient failed bedside swallow evaluation and speech therapy is unable to evaluate due to mental status changes. Patient is not staying awake and following only minimal direction. 07/05/2017 patient feels considerably better this afternoon. He is much stronger. Has been sitting up and is no longer feeling very short of breath. He's had some loose stool but without classic findings of C. diff so far. Patient relates that he is not chest pain or abdominal pain at this time. His chronic joint pain without acute change 07/07/2017 reveals the patient to be feeling somewhat better. Less short of breath. Still some loose stools but C. diff was negative. No abdominal pain. No chest pain. Objective - Vital Signs Vital signs: Vital Signs Temp 97.1 F L 07/07/17 22:10 Pulse 66 07/07/17 22:10 Resp 16 07/07/17 22:10 BP 94/59 07/07/17 22:10 Pulse Ox 92 L 07/07/17 22:10 Intake & Output 07/07/17 07/07/17 07/08/17 06:59 18:59 06:59 Intake Total 450 450 Balance 450 450 Weight 104.5 kg Intake: Oral 450 450 Other: Voiding Method Diaper Diaper # Voids 4 1 # Bowel Movements 4 1 - Exam Gen: This is an obese 77-year-old male. He is in bed and is moaning occasionally. He does not appear to be in any respiratory distress. HEENT: Head is atraumatic, normocephalic. Pupils equal, round. Sclerae is anicteric. Mucous membranes of the mouth are very dry. NECK: Supple. + JVD. No lymphadenopathy. No thyromegaly. LUNGS: bilateral crackles. No intercostal retractions. HEART: irregular rate and rhythm. systolic murmur. ABDOMEN: Soft. Bowel sounds are present. No masses. No tenderness. EXTREMITIES: 1-2+ bilateral pedal edema without erythema to the lower extremities.. No calf tenderness. Dorsalis pedis +2 bilaterally. NEUROLOGICAL: Patient is now awake alert interactive much more like his baseline. His significant fatigue and malaise have resolved. - Labs CBC & Chem 7: 07/03/17 16:00 07/07/17 07:32 Labs: Abnormal Lab Results - Last 24 Hours (Table) 07/07/17 07/07/17 07/07/17 Range/Units 07:19 07:32 12:24 Potassium 3.3 L (3.5-5.1) mmol/L BUN 128 H* (9-20) mg/dL Creatinine 2.93 H (0.66-1.25) mg/dL Glucose 130 H (74-99) mg/dL POC Glucose (mg/dL) 190 H 164 H (75-99) mg/dL Calcium 7.2 L (8.4-10.2) mg/dL 07/07/17 07/07/17 Range/Units 17:07 20:31 Potassium (3.5-5.1) mmol/L BUN (9-20) mg/dL Creatinine (0.66-1.25) mg/dL Glucose (74-99) mg/dL POC Glucose (mg/dL) 183 H 101 H (75-99) mg/dL Calcium (8.4-10.2) mg/dL Microbiology - Last 24 Hours (Table) 07/03/17 16:00 Blood Culture Gram Stain - Final Blood Blood Culture - Final Klebsiella pneumoniae Laboratory Results WBC 8.4 k/uL (3.8-10.6) 07/03/17 16:00 RBC 3.80 m/uL (4.30-5.90) L 07/03/17 16:00 Hgb 11.4 gm/dL (13.0-17.5) L 07/03/17 16:00 Hct 37.6 % (39.0-53.0) L 07/03/17 16:00 MCV 99.2 fL (80.0-100.0) 07/03/17 16:00 MCH 30.0 pg (25.0-35.0) 07/03/17 16:00 MCHC 30.3 g/dL (31.0-37.0) L 07/03/17 16:00 RDW 15.7 % (11.5-15.5) H 07/03/17 16:00 Plt Count 132 k/uL (150-450) L 07/03/17 16:00 Neutrophils % 84 % 07/03/17 16:00 Lymphocytes % 5 % 07/03/17 16:00 Monocytes % 8 % 07/03/17 16:00 Eosinophils % 1 % 07/03/17 16:00 Basophils % 1 % 07/03/17 16:00 Neutrophils # 7.0 k/uL (1.3-7.7) 07/03/17 16:00 Lymphocytes # 0.4 k/uL (1.0-4.8) L 07/03/17 16:00 Monocytes # 0.6 k/uL (0-1.0) 07/03/17 16:00 Eosinophils # 0.1 k/uL (0-0.7) 07/03/17 16:00 Basophils # 0.1 k/uL (0-0.2) 07/03/17 16:00 Macrocytosis Slight 07/03/17 16:00 PT 9.9 sec (9.0-12.0) 07/03/17 16:00 INR 1.0 (<1.2) 07/03/17 16:00 APTT 24.1 sec (22.0-30.0) 07/03/17 16:00 Sodium 138 mmol/L (137-145) 07/07/17 07:32 Potassium 3.3 mmol/L (3.5-5.1) L 07/07/17 07:32 Chloride 99 mmol/L (98-107) 07/07/17 07:32 Carbon Dioxide 28 mmol/L (22-30) 07/07/17 07:32 Anion Gap 11 mmol/L 07/07/17 07:32 BUN 128 mg/dL (9-20) H* 07/07/17 07:32 Creatinine 2.93 mg/dL (0.66-1.25) H 07/07/17 07:32 Est GFR (MDRD) Af Amer 25 (>60 ml/min/1.73 sqM) 07/07/17 07:32 Est GFR (MDRD) Non-Af 21 (>60 ml/min/1.73 sqM) 07/07/17 07:32 Glucose 130 mg/dL (74-99) H 07/07/17 07:32 POC Glucose (mg/dL) 101 mg/dL (75-99) H 07/07/17 20:31 POC Glu [employer] NAUN Farzaneh Ventura 07/07/17 20:31 Plasma Lactic Acid Jean Pierre 0.9 mmol/L (0.7-2.0) 07/03/17 16:00 Calcium 7.2 mg/dL (8.4-10.2) L 07/07/17 07:32 Magnesium 2.1 mg/dL (1.6-2.3) 07/07/17 07:32 Total Bilirubin 0.4 mg/dL (0.2-1.3) 07/03/17 16:00 AST 29 U/L (17-59) 07/03/17 16:00 ALT 22 U/L (21-72) 07/03/17 16:00 Alkaline Phosphatase 84 U/L (38-126) 07/03/17 16:00 Total Creatine Kinase 41 U/L (55-170) L 07/03/17 16:00 CK-MB (CK-2) 0.6 ng/mL (0.0-2.4) 07/03/17 16:00 CK-MB (CK-2) Rel Index 1.5 07/03/17 16:00 Troponin I 0.132 ng/mL (0.000-0.034) H* 07/03/17 16:00 NT-Pro-B Natriuret Pep 99843 pg/mL 07/03/17 16:00 Total Protein 5.4 g/dL (6.3-8.2) L 07/03/17 16:00 Albumin 2.4 g/dL (3.5-5.0) L 07/03/17 16:00 Urine Color Yellow 07/03/17 16:49 Urine Appearance Clear (Clear) 07/03/17 16:49 Urine pH 6.0 (5.0-8.0) 07/03/17 16:49 Ur Specific [place] 1.009 (1.001-1.035) 07/03/17 16:49 Urine Protein 3+ (Negative) H 07/03/17 16:49 Urine Glucose (UA) Negative (Negative) 07/03/17 16:49 Urine Ketones Negative (Negative) 07/03/17 16:49 Urine Blood Moderate (Negative) H 07/03/17 16:49 Urine Nitrite Negative (Negative) 07/03/17 16:49 Urine Bilirubin Negative (Negative) 07/03/17 16:49 Urine Urobilinogen <2.0 mg/dL (<2.0) 07/03/17 16:49 Ur Leukocyte Esterase Small (Negative) H 07/03/17 16:49 Urine RBC 75 /hpf (0-5) H 07/03/17 16:49 Urine WBC 26 /hpf (0-5) H 07/03/17 16:49 Ur Squamous Epith Cells <1 /hpf (0-4) 07/03/17 16:49 Urine Bacteria Many /hpf (None) H 07/03/17 16:49 Hyaline Casts 1 /lpf (0-2) 07/03/17 16:49 Urine Mucus Rare /hpf (None) H 02/25/18 16:49 C. difficile (EIA) Intrp Negative (Negative) 07/05/17 18:30 Influenza Type A RNA Not Detected (Not Detectd) 07/04/17 10:04 Influenza Type B (PCR) Not Detected (Not Detectd) 07/04/17 10:04 Microbiology 07/03/17 16:00 Blood Blood Culture Gram Stain - Final 07/03/17 16:00 Blood Blood Culture - Final Klebsiella pneumoniae 07/03/17 16:49 Urine,Catheterized Urine Culture - Final Klebsiella pneumoniae 07/03/17 16:00 Blood Blood Culture - Final Assessment and Plan (1) CHF (congestive heart failure) Current Visit: Yes Status: Acute Code(s): I50.9 - HEART FAILURE, UNSPECIFIED SNOMED Code(s): 66454660 (2) UTI (urinary tract infection) Narrative/Plan: This pleasant 77 showed gentleman has been asked was multiple times is well- known to the service. Now presents with evidence of significant sepsis. Appears to have a urinary tract infection and with his history ampicillin sulbactam will be utilized until we have further information. Ongoing concern will be to the redevelopment of C. diff colitis given his history of prior events and fecal transplantation. The patient is very unhappy that he is so ill at this time. His psoriatic arthritis is stable at the moment. She has noted he does have leukocytosis and chronic renal failure. Urine culture does reveal evidence of a gram-negative bacilli and this is the likely source of his current sepsis. Probiotic therapy to be utilized if he can tolerate. 07/05/2017 reveals the patient to be considerably improved. He is now awake alert interactive and generally feeling better. He ingested his dinner without troubles. He apparently Has had a loose stool but no evidence for C. diff at this moment. This patient improves and gets ready for discharge to home fortunately oral antibiotic therapy and discharged with doxycycline 100 mg orally twice per day Utilize complete the course of his klebsiella urinary tract infection. As before continue probiotic therapy as he tolerates. Diarrhea will be monitored. 07/07/2017. The patient now has evidence of positive blood culture for the Klebsiella that was found in his urine. Consequently will not be able to utilize doxycycline but will complete his course of ciprofloxacin. After monitor him closely for redevelopment of C. diff colitis on antibiotic therapy. Continue probiotic therapy as before. Hopefully ready for discharge soon. Current Visit: No Status: Acute Code(s): N39.0 - URINARY TRACT INFECTION, SITE NOT SPECIFIED SNOMED Code(s): 16788317 (3) Chronic renal failure Current Visit: Yes Status: Acute Code(s): N18.9 - CHRONIC KIDNEY DISEASE, UNSPECIFIED SNOMED Code(s): 16109325
[2017-07-08] MEDS: METOPROLOL TARTRATE 25 MG TAB PO SCH ×3 (02:38→21:47)
[2017-07-08] MEDS: METOLAZONE 5 MG TAB PO SCH (02:48)
[2017-07-08 03:20] LABS: HCT 42.8 % (39.0-53.0); Hypochromasia Slight; MCH 30.4 pg (25.0-35.0); MCHC 30.4 g/dL (31.0-37.0); MCV 100.1 fL (80.0-100.0); Macrocytosis Slight; Platelet Count 117 k/uL (150-450); RBC 4.27 m/uL (4.30-5.90); RDW 15.1 % (11.5-15.5); WBC 7.8 k/uL (3.8-10.6)
[2017-07-08 03:21] LABS: Calcium 7.8 mg/dL (8.4-10.2)
[2017-07-08 07:07] LABS: Glucose,Whole Blood 110 mg/dL (75-99)
[2017-07-08] MEDS: hydrALAZINE HCL 25 MG TAB PO SCH ×2 (09:26→21:47)
[2017-07-08] MEDS: FUROSEMIDE 10 MG/ML 4 ML VIAL IV SCH (09:26)
[2017-07-08] MEDS: REPAGLINIDE 1 MG TAB PO SCH ×3 (09:26→17:43)
[2017-07-08] MEDS: CALCIUM CARB-VIT D 500MG-200UN 1 EACH TAB PO SCH (09:27)
[2017-07-08] MEDS: LACTOBACILLUS ACIDOPH & BULGAR 1 EACH PACKET PO SCH (09:28)
[2017-07-08] MEDS: NYSTATIN 100,000UNIT/GM CREAM 30 GM TUBE TOPICAL SCH ×2 (09:28→21:48)
[2017-07-08] MEDS ORDERED: SODIUM CHLORIDE 0.9% 1,000 ML IV SCH (09:30)
--- NOTE | 2017-07-08 09:50 | XR ---
EXAMINATION TYPE: XR chest 1V DATE OF EXAM: 07/08/2017 COMPARISON: 07/03/2017 HISTORY: Shortness of breath TECHNIQUE: Single frontal view of the chest is obtained. FINDINGS: There is a diffuse interstitial reticular pattern throughout the lungs with slight blurrin g of the right hemidiaphragm. This is more pronounced than on the prior exam. Probable esophageal etienne nt and postsurgical changes of the cervical spine are noted. Cardiac silhouette is upper limits of normal. Costophrenic angles are likely blunted by copious overl harper soft tissues rather than pleural effusions. No pneumothorax. Osseous structures appear intact. There is subluxation of the left humerus relative to the glenoid correlate clinically. IMPRESSION: Diffuse reticular interstitial opacity may represent interstitial pulmonary edema and cardiogenic or noncardiogenic fluid overload or atypical pneumonia.
--- NOTE | 2017-07-08 10:01 | P.PN ---
Subjective Patient is seen in follow-up for acute kidney injury on chronic kidney disease. 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 Patient presented to the hospital with generalized weakness and altered mental status. He is noted to have UTI. Blood culture is also positive for Klebsiella. Currently maintained on Lasix 40 mg IV once daily. Creatinine is up to 3.0 today. BUN is 134. His mentation is worsened today and he is again quite confused. He is having significant amount of diarrhea. Vital signs are stable. General: The patient appeared well nourished and normally developed. HEENT: Head exam is unremarkable. Neck is without jugular venous distension. LUNGS: Lungs are clear to auscultation and percussion. Breath sounds decreased. HEART: Rate and Rhythm are regular. First and second heart sounds normal. No murmurs, rubs or gallops. ABDOMEN: Abdominal exam reveals normal bowel sounds. Non-tender and non- distended. No evidence of peritonitis. EXTREMITITES: Trace edema. Objective - Vital Signs Vital signs: Vital Signs Temp 98.0 F 07/08/17 06:04 Pulse 86 07/08/17 07:15 Resp 18 07/08/17 07:15 BP 110/65 07/08/17 07:15 Pulse Ox 93 L 07/08/17 07:15 Intake & Output 07/07/17 07/08/17 07/08/17 18:59 06:59 18:59 Intake Total 450 Balance 450 Weight 101 kg Intake: Oral 450 Other: Voiding Method Diaper Diaper Incontinent # Voids 1 3 # Bowel Movements 1 5 - Labs CBC & Chem 7: 07/08/17 02:54 07/08/17 02:54 Labs: Abnormal Lab Results - Last 24 Hours (Table) 07/07/17 07/07/17 07/07/17 Range/Units 12:24 17:07 20:31 RBC (4.30-5.90) m/uL MCV (80.0-100.0) fL MCHC (31.0-37.0) g/dL Plt Count (150-450) k/uL BUN (9-20) mg/dL Creatinine (0.66-1.25) mg/dL Glucose (74-99) mg/dL POC Glucose (mg/dL) 164 H 183 H 101 H (75-99) mg/dL Calcium (8.4-10.2) mg/dL 07/08/17 07/08/17 07/08/17 Range/Units 02:54 02:54 07:05 RBC 4.27 L (4.30-5.90) m/uL MCV 100.1 H (80.0-100.0) fL MCHC 30.4 L (31.0-37.0) g/dL Plt Count 117 L (150-450) k/uL BUN 134 H* (9-20) mg/dL Creatinine 3.00 H (0.66-1.25) mg/dL Glucose 137 H (74-99) mg/dL POC Glucose (mg/dL) 110 H (75-99) mg/dL Calcium 7.8 L (8.4-10.2) mg/dL Assessment and Plan Plan: Assessment: #1. Nonoliguric acute kidney injury secondary to ATN secondary to sepsis and diarrhea. Creatinine up to 3.0 today. BUN elevated due to acute kidney injury as well as steroids. No evidence of GI bleed. #2. Altered mental status related to infectious etiology. Initially improved but worse again today. #3. Diarrhea. C. diff negative. He does have history of C. diff in the past. #4. History of diastolic CHF. #5. Chronic kidney disease stage III secondary to biopsy-proven FSGS with baseline creatinine in the range of 1.7-2. His recent creatinine has been closer to 2.2-2.4 range. He is maintained on prednisone 10 mg daily as well as Prograf 1 mg daily for immunosuppression as an outpatient. #6. UTI with urine culture positive for Klebsiella. Blood cultures also positive for Klebsiella as well. Continue with antibiotics per infectious disease recommendations. #7. Hypokalemia due to diuresis. Magnesium replete. Improved. Plan: Discontinue Lasix completely. I will gently hydrate him with normal saline at 50 mL an hour. Continue prednisone 10 mg once daily. Maintain Prograf. Avoid nephrotoxic agents and hypotensive episodes. Hold antihypertensives for systolic blood pressure less than 120. I will continue to hold lisinopril for now. Repeat electrolytes in the morning. I have also decreased Neurontin to 300 mg once daily. Encouraged oral intake. Check chest x-ray. I did discuss with the that if his renal function continues to worsen over the next few days then may need to initiate renal replacement therapy. She is agreeable but states that the patient would not want long-term dialysis.
[2017-07-08 11:54] LABS: Glucose,Whole Blood 109 mg/dL (75-99)
[2017-07-08] MEDS: CIPROFLOXACIN HCL 250 MG TAB PO SCH ×2 (12:01→21:47)
[2017-07-08] MEDS: predniSONE 10 MG TAB PO SCH (12:01)
[2017-07-08] MEDS: GABAPENTIN 300 MG CAP PO SCH (12:01)
[2017-07-08] MEDS: TAMSULOSIN 0.4 MG CAP.ER.24H PO SCH ×2 (12:01→21:48)
[2017-07-08] MEDS: APIXABAN 2.5 MG TABLET PO SCH ×2 (12:02→21:46)
[2017-07-08] MEDS: DIPHENOX-ATROP 2.5-0.025 MG 1 EACH TAB PO SCH ×3 (12:02→21:53)
[2017-07-08] MEDS: MULTIVITAMINS, THERA 1 EACH TAB PO SCH (12:02)
[2017-07-08] MEDS: TACROLIMUS 1 MG CAP PO SCH (12:03)
[2017-07-08] MEDS: ISOSORBIDE MONONITRATE ER 30 MG TAB.ER.24H PO SCH (12:08)
[2017-07-08] MEDS: DILTIAZEM CD 120 MG CAP.ER.24H PO SCH (16:37)
--- NOTE | 2017-07-08 17:32 | PN ---
PROGRESS NOTE DATE OF SERVICE: 07/08/2017 PRESENTING COMPLAINT: Tired, delirious. INTERVAL HISTORY: This is a patient with multiple problems, including hypertension, osteoarthritis, chronic kidney disease, nephrotic syndrome with underlying FSGS, congestive heart failure, who presented with UTI, sepsis, pneumonia, CHF exacerbation, uncontrolled atrial fibrillation. The patient is doing better. Yesterday he had converted to sinus rhythm, but renal function had been deteriorating. The patient has been having loose stools. C difficile is negative. The patient is delirious today. Renal function has worsened. He is still having some loose stools. Fecal management system has been put. at the bedside. REVIEW OF SYSTEMS: Review of systems could not be done, as patient is somewhat delirious. CURRENT MEDICATIONS: Current medications are reviewed that include: 1. Eliquis. 2. Lipitor. 3. Questran. 4. Zaroxolyn. PHYSICAL EXAMINATION: Temperature 100.6, pulse 118, respiration 20, blood pressure 92/43, pulse ox 83% on room air. GENERAL APPEARANCE: Lying in bed. More lethargic but may answer some questions. EYES: Pupils equal. Conjunctivae normal. HEENT: External appearance of nose and ears normal. Oral cavity dry. Decreased hearing. NECK: JVD unable to assess. Mass not palpable. CARDIOVASCULAR: Heart sounds distant. Minimal edema. RESPIRATORY: Effort normal. LUNGS: Decreased breath sounds. ABDOMEN: Soft, nontender. Liver and spleen not palpable. PSYCHIATRY: Patient is delirious. MUSCULOSKELETAL: Significant osteoarthritis, especially in the hands. DERMATOLOGICAL: Chronic skin changes. INVESTIGATIONS: White count 7.8, hemoglobin 13, potassium 4.0. BUN 134, creatinine 3.0. ASSESSMENT: 1. Acute delirium, likely from volume depletion and renal failure, worsening. 2. Acute urinary tract infection with positive blood cultures growing Klebsiella pneumoniae. 3. Bilateral pneumonia, multi-lobar. Suspect Gram-negative organism causing sepsis, present on admission, which actually has improved. 4. Acute delirium and acute metabolic encephalopathy, present on admission, now again getting worse, probably because of renal failure. 5. Paroxysmal atrial fibrillation. Heart rate was uncontrolled on admission, now in sinus rhythm. 6. Acute on chronic congestive heart failure from systolic dysfunction, ejection fraction 30% to 35%, with underlying hypertensive heart disease, stabilized. 7. Chronic hearing disorder. 8. Hyperlipidemia. 9. Essential hypertension. 10.Chronic kidney disease, stage III, secondary to biopsy-proven focal segmental glomerulosclerosis; baseline creatinine 2.2, maintained on prednisone and Prograf. 11.Skin cancer. 12.Psoriatic arthritis. 13.Nephrotic syndrome with focal segmental glomerulosclerosis. 14.Chronic back pain. 15.Bilateral rotator cuff injury. 16.Chronic medical debility. 17.Chronic gait dysfunction at baseline; uses a walker. 18.Acute renal failure from diuresis, likely prerenal; also from sepsis, now worsening. 19.Acute antibiotic-associated diarrhea, not improved. PLAN: Diuretics should be scaled back. Follow closely with Nephrology. Did have a lengthy talk with the patient's . Prognosis is not good. At the present time, will also discontinue patient's Zaroxolyn. Prognosis guarded. Will follow. MMBRIGITTEL / IJN: [id number] /
[2017-07-08 17:34] LABS: Glucose,Whole Blood 92 mg/dL (75-99)
[2017-07-08] MEDS: ALLOPURINOL 100 MG TAB PO SCH (17:43)
[2017-07-08] MEDS: LEFLUNOMIDE 20 MG TAB PO SCH (17:44)
[2017-07-08] MEDS: CHOLESTYRAMINE (WITH SUGAR) 4 GM PACKET PO SCH (18:14)
[2017-07-08 21:11] LABS: Glucose,Whole Blood 102 mg/dL (75-99)
[2017-07-08] MEDS: ATORVASTATIN 40 MG TAB PO SCH (21:46)
[2017-07-08] MEDS: FAMOTIDINE 20 MG TAB PO SCH (21:47)
--- NOTE | 2017-07-08 22:02 | P.PN ---
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 Gill at [facility] on February 04, 2017. He had a recent hospitalization in May which time he was treated for sepsis secondary to urinary tract infection with culture positive for Klebsiella pneumoniae and previous to that urine culture for Enterococcus faecalis. Patient was initially treated with Unasyn and was discharged home on doxycycline. Patient was in his usual state of health until Tuesday morning. His left the home for about 1 hour to go to [place] and when she came back he had significant weakness and lethargy and fever. She called 911 and patient was brought into [facility] emergency center for evaluation. 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 Chest x-ray shows interstitial pulmonary edema, cardiogenic or noncardiogenic fluid overload or atypical pneumonia. He had a white count of 8.4, hemoglobin 11.4, platelet count 132 which is low from his baseline. BUN 96 and creatinine 2.3. Troponin 0.132. Urinalysis was clear, blood moderate, leukoesterase small, RBC 75, WBCs 26, bacteria many. Urine culture and blood culture are in progress. Patient was started on doxycycline and admitted to the selective care unit and consults requested with nephrology and cardiology. His is very concerned as he is more lethargic this morning than when she left him last evening. Patient failed bedside swallow evaluation and speech therapy is unable to evaluate due to mental status changes. Patient is not staying awake and following only minimal direction. 07/05/2017 patient feels considerably better this afternoon. He is much stronger. Has been sitting up and is no longer feeling very short of breath. He's had some loose stool but without classic findings of C. diff so far. Patient relates that he is not chest pain or abdominal pain at this time. His chronic joint pain without acute change 07/07/2017 reveals the patient to be feeling somewhat better. Less short of breath. Still some loose stools but C. diff was negative. No abdominal pain. No chest pain. 07/08/2017 patient has had a very rough night. He has had increasing confusion. The case is discussed with the and son-in-law. Patient is ill and that he has gram-negative sepsis and worsening renal failure. He has been seen by nephrology with potential contemplation of short-term hemodialysis since the patient would not want long-term hemodialysis. He is having loose stools but there is some form to them. C. diff is negative 2. Objective - Vital Signs Vital signs: Vital Signs Temp 99.0 F 07/08/17 16:02 Pulse 118 H 07/08/17 15:00 Resp 16 07/08/17 16:08 BP 99/56 07/08/17 21:50 Pulse Ox 92 L 07/08/17 16:05 Intake & Output 07/08/17 07/08/17 07/09/17 06:59 18:59 06:59 Intake Total 200 Output Total 1300 Balance -1100 Weight 101 kg Intake: Oral 200 Output: Stool 1000 Urine/Stool Mix 300 Other: Voiding Method Diaper Indwelling Catheter Incontinent # Voids 3 130 # Bowel Movements 5 - Exam Gen: This is an obese 77-year-old male. He is in bed and is moaning occasionally. He does not appear to be in any respiratory distress. HEENT: Head is atraumatic, normocephalic. Pupils equal, round. Sclerae is anicteric. Mucous membranes of the mouth are very dry. NECK: Supple. + JVD. No lymphadenopathy. No thyromegaly. LUNGS: bilateral crackles. No intercostal retractions. HEART: irregular rate and rhythm. systolic murmur. ABDOMEN: Soft. Bowel sounds are present. No masses. No tenderness. Fecal tube in place, some fecal material is escaping around the tube and is having some mild irritation to his skin. EXTREMITIES: 1-2+ bilateral pedal edema without erythema to the lower extremities.. No calf tenderness. Dorsalis pedis +2 bilaterally. NEUROLOGICAL: Patient is now awake alert interactive he is somewhat agitated and certainly not comfortable. - Labs CBC & Chem 7: 07/08/17 02:54 07/08/17 02:54 Labs: Abnormal Lab Results - Last 24 Hours (Table) 07/08/17 07/08/17 07/08/17 Range/Units 02:54 02:54 07:05 RBC 4.27 L (4.30-5.90) m/uL MCV 100.1 H (80.0-100.0) fL MCHC 30.4 L (31.0-37.0) g/dL Plt Count 117 L (150-450) k/uL BUN 134 H* (9-20) mg/dL Creatinine 3.00 H (0.66-1.25) mg/dL Glucose 137 H (74-99) mg/dL POC Glucose (mg/dL) 110 H (75-99) mg/dL Calcium 7.8 L (8.4-10.2) mg/dL 07/08/17 07/08/17 Range/Units 11:52 21:10 RBC (4.30-5.90) m/uL MCV (80.0-100.0) fL MCHC (31.0-37.0) g/dL Plt Count (150-450) k/uL BUN (9-20) mg/dL Creatinine (0.66-1.25) mg/dL Glucose (74-99) mg/dL POC Glucose (mg/dL) 109 H 102 H (75-99) mg/dL Calcium (8.4-10.2) mg/dL Laboratory Results WBC 7.8 k/uL (3.8-10.6) 07/08/17 02:54 RBC 4.27 m/uL (4.30-5.90) L 07/08/17 02:54 Hgb 13.0 gm/dL (13.0-17.5) 07/08/17 02:54 Hct 42.8 % (39.0-53.0) 07/08/17 02:54 MCV 100.1 fL (80.0-100.0) H 07/08/17 02:54 MCH 30.4 pg (25.0-35.0) 07/08/17 02:54 MCHC 30.4 g/dL (31.0-37.0) L 07/08/17 02:54 RDW 15.1 % (11.5-15.5) 07/08/17 02:54 Plt Count 117 k/uL (150-450) L 07/08/17 02:54 Neutrophils % 84 % 07/03/17 16:00 Lymphocytes % 5 % 07/03/17 16:00 Monocytes % 8 % 07/03/17 16:00 Eosinophils % 1 % 07/03/17 16:00 Basophils % 1 % 07/03/17 16:00 Neutrophils # 7.0 k/uL (1.3-7.7) 07/03/17 16:00 Lymphocytes # 0.4 k/uL (1.0-4.8) L 07/03/17 16:00 Monocytes # 0.6 k/uL (0-1.0) 07/03/17 16:00 Eosinophils # 0.1 k/uL (0-0.7) 07/03/17 16:00 Basophils # 0.1 k/uL (0-0.2) 07/03/17 16:00 Hypochromasia Slight 07/08/17 02:54 Macrocytosis Slight 07/08/17 02:54 PT 9.9 sec (9.0-12.0) 07/03/17 16:00 INR 1.0 (<1.2) 07/03/17 16:00 APTT 24.1 sec (22.0-30.0) 07/03/17 16:00 Sodium 139 mmol/L (137-145) 07/08/17 02:54 Potassium 4.0 mmol/L (3.5-5.1) 07/08/17 02:54 Chloride 104 mmol/L (98-107) 07/08/17 02:54 Carbon Dioxide 23 mmol/L (22-30) 07/08/17 02:54 Anion Gap 12 mmol/L 07/08/17 02:54 BUN 134 mg/dL (9-20) H* 07/08/17 02:54 Creatinine 3.00 mg/dL (0.66-1.25) H 07/08/17 02:54 Est GFR (MDRD) Af Amer 25 (>60 ml/min/1.73 sqM) 07/08/17 02:54 Est GFR (MDRD) Non-Af 20 (>60 ml/min/1.73 sqM) 07/08/17 02:54 Glucose 137 mg/dL (74-99) H 07/08/17 02:54 POC Glucose (mg/dL) 102 mg/dL (75-99) H 07/08/17 21:10 POC Glu Seasoning Sprayer ID Shannon Baker 07/08/17 21:[address] Glu mg/dL 120 07/07/17 07:32 Hemoglobin A1c 5.8 % (4.0-6.0) 07/07/17 07:32 Plasma Lactic Acid [place] 0.9 mmol/L (0.7-2.0) 07/03/17 16:00 Calcium 7.8 mg/dL (8.4-10.2) L 07/08/17 02:54 Magnesium 2.1 mg/dL (1.6-2.3) 07/07/17 07:32 Total Bilirubin 0.4 mg/dL (0.2-1.3) 07/03/17 16:00 AST 29 U/L (17-59) 07/03/17 16:00 ALT 22 U/L (21-72) 07/03/17 16:00 Alkaline Phosphatase 84 U/L (38-126) 07/03/17 16:00 Total Creatine Kinase 41 U/L (55-170) L 07/03/17 16:00 CK-MB (CK-2) 0.6 ng/mL (0.0-2.4) 07/03/17 16:00 CK-MB (CK-2) Rel Index 1.5 07/03/17 16:00 Troponin I 0.132 ng/mL (0.000-0.034) H* 07/03/17 16:00 NT-Pro-B Natriuret Pep 85833 pg/mL 07/03/17 16:00 Total Protein 5.4 g/dL (6.3-8.2) L 07/03/17 16:00 Albumin 2.4 g/dL (3.5-5.0) L 07/03/17 16:00 Urine Color Yellow 07/03/17 16:49 Urine Appearance Clear (Clear) 07/03/17 16:49 Urine pH 6.0 (5.0-8.0) 07/03/17 16:49 Ur Specific [place] 1.009 (1.001-1.035) 07/03/17 16:49 Urine Protein 3+ (Negative) H 07/03/17 16:49 Urine Glucose (UA) Negative (Negative) 07/03/17 16:49 Urine Ketones Negative (Negative) 07/03/17 16:49 Urine Blood Moderate (Negative) H 07/03/17 16:49 Urine Nitrite Negative (Negative) 07/03/17 16:49 Urine Bilirubin Negative (Negative) 07/03/17 16:49 Urine Urobilinogen <2.0 mg/dL (<2.0) 07/03/17 16:49 Ur Leukocyte Esterase Small (Negative) H 07/03/17 16:49 Urine RBC 75 /hpf (0-5) H 07/03/17 16:49 Urine WBC 26 /hpf (0-5) H 07/03/17 16:49 Ur Squamous Epith Cells <1 /hpf (0-4) 07/03/17 16:49 Urine Bacteria Many /hpf (None) H 07/03/17 16:49 Hyaline Casts 1 /lpf (0-2) 07/03/17 16:49 Urine Mucus Rare /hpf (None) H 07/03/17 16:49 C. difficile (EIA) Intrp Negative (Negative) 07/08/17 23:54 Influenza Type A RNA Not Detected (Not Detectd) 07/04/17 10:04 Influenza Type B (PCR) Not Detected (Not Detectd) 07/04/17 10:04 Assessment and Plan (1) CHF (congestive heart failure) Current Visit: Yes Status: Acute Code(s): I50.9 - HEART FAILURE, UNSPECIFIED SNOMED Code(s): 59501139 (2) UTI (urinary tract infection) Narrative/Plan: This pleasant 77 showed gentleman has been asked was multiple times is well- known to the service. Now presents with evidence of significant sepsis. Appears to have a urinary tract infection and with his history ampicillin sulbactam will be utilized until we have further information. Ongoing concern will be to the redevelopment of C. diff colitis given his history of prior events and fecal transplantation. The patient is very unhappy that he is so ill at this time. His psoriatic arthritis is stable at the moment. She has noted he does have leukocytosis and chronic renal failure. Urine culture does reveal evidence of a gram-negative bacilli and this is the likely source of his current sepsis. Probiotic therapy to be utilized if he can tolerate. 07/05/2017 reveals the patient to be considerably improved. He is now awake alert interactive and generally feeling better. He ingested his dinner without troubles. He apparently Has had a loose stool but no evidence for C. diff at this moment. This patient improves and gets ready for discharge to home fortunately oral antibiotic therapy and discharged with doxycycline 100 mg orally twice per day Utilize complete the course of his klebsiella urinary tract infection. As before continue probiotic therapy as he tolerates. Diarrhea will be monitored. 07/07/2017. The patient now has evidence of positive blood culture for the Klebsiella that was found in his urine. Consequently will not be able to utilize doxycycline but will complete his course of ciprofloxacin. After monitor him closely for redevelopment of C. diff colitis on antibiotic therapy. Continue probiotic therapy as before. Hopefully ready for discharge soon. 07/08/2017 patient has had worsening status. He is receiving oral antibiotic therapy with ciprofloxacin with attempts to reduce his much volume as possible with his worsening renal failure. He fortunately does not have C. diff. Rectal tube is in place because of the high-volume stools that he is producing. C. diff is negative 2 Some Questran will be added to see if this cannot bulk up his stool a bit given his current symptoms. The patient's poor prognosis is discussed with the and son-in-law. Current Visit: No Status: Acute Code(s): N39.0 - URINARY TRACT INFECTION, SITE NOT SPECIFIED SNOMED Code(s): 74385986 (3) Chronic renal failure Current Visit: Yes Status: Acute Code(s): N18.9 - CHRONIC KIDNEY DISEASE, UNSPECIFIED SNOMED Code(s): 56588162
[2017-07-09 07:36] LABS: Calcium 7.7 mg/dL (8.4-10.2); Potassium 3.8 mmol/L (3.5-5.1)
[2017-07-09 07:36] LABS: Glucose,Whole Blood 100 mg/dL (75-99)
--- NOTE | 2017-07-09 08:22 | XR ---
EXAMINATION TYPE: XR chest 1V DATE OF EXAM: 07/09/2017 COMPARISON: 07/08/2017 INDICATION: Follow-up previous acute congestive heart failure TECHNIQUE: Single frontal view of the chest is obtained. FINDINGS: The heart size is enlarged. The pulmonary vasculature is prominent. There is diffuse increased lung markings with a patchy distribution. Findings are compatible with pul monary edema relatively stable from prior study. IMPRESSION: 1. Findings which can be compatible with acute congestive heart failure and pulmonary edema. Findings are similar to the previous day.
[2017-07-09] MEDS: REPAGLINIDE 1 MG TAB PO SCH ×3 (09:29→18:34)
[2017-07-09] MEDS: GABAPENTIN 300 MG CAP PO SCH (09:30)
[2017-07-09] MEDS: CIPROFLOXACIN HCL 250 MG TAB PO SCH (09:30)
[2017-07-09] MEDS: APIXABAN 2.5 MG TABLET PO SCH ×2 (09:30→22:19)
[2017-07-09] MEDS: CALCIUM CARB-VIT D 500MG-200UN 1 EACH TAB PO SCH (09:30)
[2017-07-09] MEDS: METOPROLOL TARTRATE 25 MG TAB PO SCH ×2 (09:31→22:18)
[2017-07-09] MEDS: ISOSORBIDE MONONITRATE ER 30 MG TAB.ER.24H PO SCH (09:31)
[2017-07-09] MEDS: hydrALAZINE HCL 25 MG TAB PO SCH (09:31)
[2017-07-09] MEDS: LACTOBACILLUS ACIDOPH & BULGAR 1 EACH PACKET PO SCH (09:31)
[2017-07-09] MEDS: predniSONE 10 MG TAB PO SCH (09:32)
[2017-07-09] MEDS: TAMSULOSIN 0.4 MG CAP.ER.24H PO SCH ×2 (09:32→22:19)
[2017-07-09] MEDS: DIPHENOX-ATROP 2.5-0.025 MG 1 EACH TAB PO SCH ×3 (09:35→22:26)
[2017-07-09] MEDS ORDERED: FUROSEMIDE 10 MG/ML 4 ML VIAL IV STA (11:21)
[2017-07-09] MEDS: CHOLESTYRAMINE (WITH SUGAR) 4 GM PACKET PO SCH ×2 (11:24→17:04)
[2017-07-09] MEDS: NYSTATIN 100,000UNIT/GM CREAM 30 GM TUBE TOPICAL SCH ×2 (11:24→22:19)
[2017-07-09] MEDS: TACROLIMUS 1 MG CAP PO SCH (11:24)
[2017-07-09] MEDS: MULTIVITAMINS, THERA 1 EACH TAB PO SCH (11:26)
--- NOTE | 2017-07-09 11:33 | P.PN ---
Subjective Progress Note Date: 07/09/17 Principal diagnosis: Patient is seen in follow-up for acute kidney injury on chronic kidney disease. 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 He was found to have acute kidney injury from prerenal secondary to urinary tract infection and bacteremia Klebsiella pneumonia. He is improving as far as mental status concern is awake alert oriented today. Appetite is fair. No nausea vomiting diarrhea although he has a Maldonado catheter as well as a rectal Maldonado with lot of stools. Denies any abdominal pain. His creatinine continues to worsen though ends up to 3.9 this morning, significant worsening. His blood pressure was low in the 99 219 range. He is on hydralazine and metoprolol. He was given IV fluids normal saline 50 an hour. A chest x-ray done shows congestive heart failure. Additionally he has sclerotic arthritis and was on biological. Is also on prednisone and Prograf. Patient presented to the hospital with generalized weakness and altered mental status. He is noted to have UTI. Blood culture is also positive for Klebsiella. Currently maintained on Lasix 40 mg IV once daily. Creatinine is up to 3.0 today. BUN is 134. His mentation is worsened today and he is again quite confused. He is having significant amount of diarrhea. Objective - Vital Signs Vital signs: Vital Signs Temp 97.9 F 07/09/17 07:00 Pulse 64 07/09/17 07:00 Resp 14 07/09/17 07:00 BP 119/69 07/09/17 07:00 Pulse Ox 96 07/09/17 07:00 Intake & Output 07/08/17 07/09/17 07/09/17 18:59 06:59 18:59 Intake Total 200 Output Total 1300 1000 300 Balance -1100 -1000 -300 Weight 100.5 kg Intake: Oral 200 Output: Urine 300 Stool 1000 1000 Urine/Stool Mix 300 Other: Voiding Method Indwelling Catheter Indwelling Catheter # Voids 130 On examination he is awake alert oriented 3. No asterixis. HEENT exam no JVP neck is supple no facial asymmetry Lungs are significant for bilateral fine crackles at bases with good air entry bilaterally no dullness to percussion Heart sounds are unremarkable for any murmur rub gallop Abdomen soft nontender no organomegaly ascites masses Extremity exam was minimal edema Neurologically awake alert oriented generalized weakness had difficulty sitting up but no asterixis. - Labs CBC & Chem 7: 07/08/17 02:54 07/09/17 06:40 Labs: Abnormal Lab Results - Last 24 Hours (Table) 07/08/17 07/08/17 07/09/17 Range/Units 11:52 21:10 06:40 BUN 130 H* (9-20) mg/dL Creatinine 3.90 H (0.66-1.25) mg/dL Glucose 72 L (74-99) mg/dL POC Glucose (mg/dL) 109 H 102 H (75-99) mg/dL Calcium 7.7 L (8.4-10.2) mg/dL 07/09/17 Range/Units 07:32 BUN (9-20) mg/dL Creatinine (0.66-1.25) mg/dL Glucose (74-99) mg/dL POC Glucose (mg/dL) 100 H (75-99) mg/dL Calcium (8.4-10.2) mg/dL Assessment and Plan Assessment: Assessment: #1. Nonoliguric acute kidney injury secondary to ATN secondary to sepsis and diarrhea. Creatinine up to 3.9 today. BUN elevated due to acute kidney injury as well as steroids. No evidence of GI bleed. No evidence of uremia in fact his mental status is improved #2. Altered mental status related to infectious etiology. improved #3. Diarrhea. C. diff negative. He does have history of C. diff in the past. #4. History of diastolic CHF. Chest x-ray confirms congestive heart failure #5. Chronic kidney disease stage III secondary to biopsy-proven FSGS with baseline creatinine in the range of 1.7-2. His recent creatinine has been closer to 2.2-2.4 range. He is maintained on prednisone 10 mg daily as well as Prograf 1 mg daily for immunosuppression as an outpatient. #6. UTI with urine culture positive for Klebsiella. Blood cultures also positive for Klebsiella as well. Continue with antibiotics per infectious disease recommendations. #7. Hypokalemia due to diuresis. Magnesium replete. Improved. Plan: Discontinue normal saline at 50 mL an hour. Discontinue hydralazine because of the low blood pressure. Hold metoprolol and any other blood pressure medication if pressure is less than 110. Lasix 40 mg 1 dose IV now and report urine output to me in about 4-5 hours. Continue prednisone 10 mg once daily. Maintain Prograf. Avoid nephrotoxic agents and hypotensive episodes I will continue to hold lisinopril for now. Repeat electrolytes in the morning. Continue decreased Neurontin to 300 mg once daily. Obtain Prograf level I did discuss with the that though his creatinine has worsened I expect him to improve as overall there is some improvement and the cause of his acute worsening might have been secondary to low blood pressure and the congestive heart failure. if his renal function continues to worsen over the next few days then may need to initiate renal replacement therapy. She is agreeable but states that the patient would not want long-term dialysis.
[2017-07-09] MEDS: NYSTATIN 100,000 UNIT/GM POWD 15 GM TOPICAL PRN (11:48)
[2017-07-09 12:20] LABS: Glucose,Whole Blood 103 mg/dL (75-99)
[2017-07-09] MEDS: DILTIAZEM CD 120 MG CAP.ER.24H PO SCH (17:03)
[2017-07-09] MEDS: LEFLUNOMIDE 20 MG TAB PO SCH (17:04)
[2017-07-09] MEDS: ALLOPURINOL 100 MG TAB PO SCH (17:04)
[2017-07-09 17:37] LABS: Glucose,Whole Blood 89 mg/dL (75-99)
[2017-07-09] MEDS ORDERED: FUROSEMIDE 10 MG/ML 4 ML VIAL IV ONE (20:00)
[2017-07-09 20:54] LABS: Glucose,Whole Blood 102 mg/dL (75-99)
[2017-07-09] MEDS: DEXTROSE IVPB SCH (22:17)
[2017-07-09] MEDS: CIPROFLOXACIN IVPB SCH (22:17)
[2017-07-09] MEDS: [UNRECOGNIZED DRUG - OTHER] IVPB SCH (22:17)
[2017-07-09] MEDS: ATORVASTATIN 40 MG TAB PO SCH (22:19)
[2017-07-09] MEDS: FAMOTIDINE 20 MG TAB PO SCH (22:19)
[2017-07-10 07:45] LABS: Glucose,Whole Blood 102 mg/dL (75-99)
[2017-07-10] MEDS: REPAGLINIDE 1 MG TAB PO SCH ×3 (08:52→17:34)
[2017-07-10] MEDS: TAMSULOSIN 0.4 MG CAP.ER.24H PO SCH ×2 (08:59→20:56)
[2017-07-10] MEDS: TACROLIMUS 1 MG CAP PO SCH (08:59)
[2017-07-10] MEDS: CIPROFLOXACIN IVPB SCH ×2 (09:00→20:56)
[2017-07-10] MEDS: APIXABAN 2.5 MG TABLET PO SCH ×2 (09:00→20:56)
[2017-07-10] MEDS: LACTOBACILLUS ACIDOPH & BULGAR 1 EACH PACKET PO SCH (09:00)
[2017-07-10] MEDS: ISOSORBIDE MONONITRATE ER 30 MG TAB.ER.24H PO SCH (09:00)
[2017-07-10] MEDS: [UNRECOGNIZED DRUG - OTHER] IVPB SCH ×2 (09:00→20:56)
[2017-07-10] MEDS: DIPHENOX-ATROP 2.5-0.025 MG 1 EACH TAB PO SCH ×3 (09:00→20:56)
[2017-07-10] MEDS: DEXTROSE IVPB SCH ×2 (09:00→20:56)
[2017-07-10] MEDS: GABAPENTIN 300 MG CAP PO SCH (09:00)
[2017-07-10] MEDS: MULTIVITAMINS, THERA 1 EACH TAB PO SCH (09:01)
[2017-07-10] MEDS: predniSONE 10 MG TAB PO SCH (09:01)
[2017-07-10] MEDS: NYSTATIN 100,000UNIT/GM CREAM 30 GM TUBE TOPICAL SCH ×2 (09:01→20:56)
[2017-07-10] MEDS: CALCIUM CARB-VIT D 500MG-200UN 1 EACH TAB PO SCH (09:01)
[2017-07-10] MEDS: CHOLESTYRAMINE (WITH SUGAR) 4 GM PACKET PO SCH ×2 (09:01→18:09)
[2017-07-10 09:33] LABS: Basophils % (A) 0 %; Eosinophils # (A) 0.2 k/uL (0-0.7); Eosinophils % (A) 3 %; HCT 31.9 % (39.0-53.0); Lymphocytes # (A) 0.4 k/uL (1.0-4.8); Lymphocytes % (A) 6 %; MCH 29.8 pg (25.0-35.0); MCV 95.9 fL (80.0-100.0); Mean Platelet Volume 8.9; Monocytes # (A) 0.4 k/uL (0-1.0); Monocytes % (A) 5 %; Neutrophils % (A) 85 %; Platelet Count 123 k/uL (150-450); RBC 3.33 m/uL (4.30-5.90); RDW 15.2 % (11.5-15.5); WBC 7.1 k/uL (3.8-10.6)
[2017-07-10 09:40] LABS: HGB 9.9 gm/dL (13.0-17.5)
[2017-07-10 09:51] LABS: Albumin 2.1 g/dL (3.5-5.0); Calcium 7.8 mg/dL (8.4-10.2); Potassium 3.8 mmol/L (3.5-5.1); Total Bilirubin 0.3 mg/dL (0.2-1.3); Total Protein 4.8 g/dL (6.3-8.2)
[2017-07-10] MEDS: METOPROLOL TARTRATE 25 MG TAB PO SCH ×2 (10:03→20:56)
--- NOTE | 2017-07-10 11:36 | P.PN ---
Subjective Principal diagnosis: Patient is seen in follow-up for acute kidney injury on chronic kidney disease. 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 He was found to have acute kidney injury from prerenal secondary to urinary tract infection and bacteremia with Klebsiella pneumonia. He is improving as far as mental status concern is awake alert oriented today. Appetite is fair. No nausea vomiting diarrhea although he has a Maldonado catheter. Denies any abdominal pain. His creatinine continues to worsen though peaking at 3.9 yesterday. He was in congestive heart failure. He was started on Lasix and his hydralazine was discontinued and normal saline was discontinued. With this creatinine improved to 3.3 this morning. His blood pressure remains somewhat low in the 90s to 120s Yesterday additionally A chest x-ray done showed congestive heart failure. Additionally he has psore iatric arthritis and was on biological. Is also on prednisone and Prograf and left leflonamide. Patient presented to the hospital with generalized weakness and altered mental status. He is noted to have UTI. Blood culture is also positive for Klebsiella. Objective - Vital Signs Vital signs: Vital Signs Temp 97.6 F 07/10/17 07:00 Pulse 64 07/10/17 09:40 Resp 18 07/10/17 07:00 BP 124/74 07/10/17 07:00 Pulse Ox 93 L 07/10/17 07:00 Intake & Output 07/09/17 07/10/17 07/10/17 18:59 06:59 18:59 Output Total 1625 2000 Balance -1625 -2000 Weight 98.5 kg Output: Urine 1125 Stool 500 2000 Other: Voiding Method Indwelling Catheter Indwelling Catheter Indwelling Catheter On examination is awake alert. His mental status is reported back to normal. HEENT exam no JVP neck is supple no facial asymmetry Lungs are significant for occasional fine crackle at bases much improved since yesterday good air entry no dullness. Heart sounds unremarkable for any murmur rub gallop Abdomen soft nontender Extremity exam was minimal edema Neurologically awake alert oriented 3 now. Generalized weakness - Labs CBC & Chem 7: 07/10/17 09:17 07/10/17 09:17 Labs: Abnormal Lab Results - Last 24 Hours (Table) 07/09/17 07/09/17 07/10/17 Range/Units 12:18 20:52 07:40 RBC (4.30-5.90) m/uL Hgb (13.0-17.5) gm/dL Hct (39.0-53.0) % Plt Count (150-450) k/uL Lymphocytes # (1.0-4.8) k/uL BUN (9-20) mg/dL Creatinine (0.66-1.25) mg/dL POC Glucose (mg/dL) 103 H 102 H 102 H (75-99) mg/dL Calcium (8.4-10.2) mg/dL Total Protein (6.3-8.2) g/dL Albumin (3.5-5.0) g/dL 07/10/17 07/10/17 Range/Units 09:17 09:17 RBC 3.33 L (4.30-5.90) m/uL Hgb 9.9 L D (13.0-17.5) gm/dL Hct 31.9 L (39.0-53.0) % Plt Count 123 L (150-450) k/uL Lymphocytes # 0.4 L (1.0-4.8) k/uL BUN 118 H* (9-20) mg/dL Creatinine 3.33 H (0.66-1.25) mg/dL POC Glucose (mg/dL) (75-99) mg/dL Calcium 7.8 L (8.4-10.2) mg/dL Total Protein 4.8 L (6.3-8.2) g/dL Albumin 2.1 L (3.5-5.0) g/dL Assessment and Plan Assessment: Assessment: #1. Nonoliguric acute kidney injury secondary to ATN secondary to sepsis and diarrhea. Creatinine up to 3.9 stable but with the reduction in blood pressure medication discontinuation of hydralazine and introduction of Lasix and discontinuation of normal saline and his congestive heart failure improved and his creatinine improved 3.3.No evidence of uremia in fact his mental status is improved. Pending Prograf level #2. Altered mental status related to infectious etiology. improved #3. Diarrhea. C. diff negative. He does have history of C. diff in the past. Improved #4. History of diastolic CHF. Chest x-ray confirms congestive heart failure dated 07/09/2017, back on Lasix #5. Chronic kidney disease stage III secondary to biopsy-proven FSGS with baseline creatinine in the range of 1.7-2. His recent creatinine has been closer to 2.2-2.4 range. He is maintained on prednisone 10 mg daily as well as Prograf 1 mg daily for immunosuppression as an outpatient. #6. UTI with urine culture positive for Klebsiella. Blood cultures also positive for Klebsiella as well. Continue with antibiotics per infectious disease recommendations. #7. Hypokalemia due to diuresis. Magnesium replete. Improved. Potassium is 3.8 Plan: 1. Maintain blood pressure around 110 to 1:30 2. We will maintain Lasix 20 mg by mouth daily 3. Hold metoprolol and any other blood pressure medication if pressure is less than 110. 4. Continue prednisone 10 mg once daily. 5. Maintain Prograf. Pending levels 6. Avoid nephrotoxic agents and hypotensive episodes 7. I will continue to hold lisinopril for now. 8. Repeat electrolytes in the morning.
[2017-07-10] MEDS ORDERED: FUROSEMIDE 10 MG/ML 2 ML VIAL IV STA (11:37)
[2017-07-10 12:41] LABS: Glucose,Whole Blood 122 mg/dL (75-99)
[2017-07-10] MEDS: traMADol 50 MG TAB PO PRN (15:24)
[2017-07-10 17:28] LABS: Glucose,Whole Blood 146 mg/dL (75-99)
--- NOTE | 2017-07-10 17:32 | P.PN ---
Subjective Progress Note Date: 07/09/17 Principal diagnosis: Acute urinary tract infection and delirium and encephalopathy Patient is a 77-year-old male with a known history of paroxysmal atrial fibrillation, CK 80, nephrotic syndrome with underlying FSGS, CHF and multiple other medical problems and gait dysfunction presented with UTI sepsis pneumonia CHF exacerbation and uncontrolled atrial fibrillation. Currently patient is being treated for UTI and Klebsiella bacteremia. Patient otherwise doing better. Patient does have worsening renal function with elevated BNP and creatinine level. 07/09/2017 Today patient is more awake today. Still having diarrhea and the rectal tube. His renal function worsened with creatinine level 3.9. No fever no chills. Patient is still having diarrhea. C. diff is negative. Chest x-ray showed findings can be compatible with acute CHF and pulmonary edema. Findings are similar to the previous day. ID and nephrology is following. All other review of systems negative except the above Current medications reviewed Active Medications Acetaminophen (Tylenol Tab) 650 mg PO Q6HR PRN PRN Reason: Mild Pain or Fever > 100.5 Last Admin: 07/06/17 03:41 Dose: 650 mg Acetaminophen (Tylenol Suppository) 650 mg RECTAL Q6HR PRN PRN Reason: Fever and/ or Mild Pain Last Admin: 07/04/17 10:12 Dose: 650 mg Allopurinol (Zyloprim) 200 mg PO W/SUPPER [facility] Last Admin: 07/09/17 17:04 Dose: 200 mg Apixaban (Eliquis) 2.5 mg PO BID [facility] Last Admin: 07/10/17 09:00 Dose: 2.5 mg Atorvastatin Calcium (Lipitor) [address] [facility] Last Admin: 07/09/17 22:19 Dose: 40 mg Calcium Carbonate (Oscal 500+D) 1 each PO DAILY [facility] Last Admin: 07/10/17 09:01 Dose: 1 each Cholestyramine Resin (Questran) 4 gm PO BID@1000,1800 [facility] Last Admin: 07/10/17 09:01 Dose: Not Given Diltiazem HCl (Cardizem Cd) 120 mg PO W/SUPPER [facility] Last Admin: 07/09/17 17:03 Dose: 120 mg Diphenoxylate HCl/Atropine (Lomotil) 1 each PO TID [facility] Last Admin: 07/10/17 15:28 Dose: 1 each Famotidine (Pepcid) [address] [facility] Last Admin: 07/09/17 22:19 Dose: 20 mg Furosemide (Lasix) 20 mg PO DAILY [facility] Gabapentin (Neurontin) 300 mg PO DAILY [facility] Last Admin: 07/10/17 09:00 Dose: 300 mg Ciprofloxacin/Dextrose 200 mg/ (IV Solution) 100 mls @ 100 mls/hr IVPB Q12HR [facility] Last Admin: 07/10/17 09:00 Dose: 100 mls/hr Isosorbide Mononitrate (Imdur) 30 mg PO DAILY [facility] Last Admin: 07/10/17 09:00 Dose: 30 mg Lactobacillus Acidoph/Bulgaricus (Lactinex) 1 each PO DAILY [facility] Last Admin: 07/10/17 09:00 Dose: Not Given Leflunomide (Arava) 20 mg PO W/SUPPER [facility] Last Admin: 07/09/17 17:04 Dose: 20 mg Metoprolol Tartrate (Lopressor) 25 mg PO BID [facility] Last Admin: 07/10/17 10:03 Dose: 25 mg Multivitamins (Theragran) 1 each PO 1200 [facility] Last Admin: 07/10/17 09:01 Dose: 1 each Naloxone HCl (Narcan) 0.2 mg IV Q2M PRN PRN Reason: Opioid Reversal Nystatin (Mycostatin Cream) 1 applic TOPICAL BID [facility] Last Admin: 07/10/17 09:01 Dose: 1 applic Nystatin (Mycostatin Powder) 1 applic TOPICAL TID PRN PRN Reason: skine breakdown Last Admin: 07/09/17 11:48 Dose: 1 applic Ondansetron HCl (Zofran) 4 mg IVP Q6HR PRN PRN Reason: Nausea And Vomiting Last Admin: 07/07/17 23:19 Dose: 4 mg Prednisone () 10 mg PO DAILY [facility] Last Admin: 07/10/17 09:01 Dose: 10 mg Repaglinide (Prandin) 1 mg PO AC-TID [facility] Last Admin: 07/10/17 14:27 Dose: Not Given Tacrolimus (Prograf) 1 mg PO DAILY [facility] Last Admin: 07/10/17 08:59 Dose: 1 mg Tamsulosin HCl (Flomax) 0.4 mg PO BID [facility] Last Admin: 07/10/17 08:59 Dose: 0.4 mg Tramadol HCl (Ultram) 50 mg PO BID PRN PRN Reason: Pain Last Admin: 07/10/17 15:24 Dose: 50 mg Objective - Vital Signs Vital signs: Vital Signs Temp 97.9 F 07/09/17 07:00 Pulse 64 07/09/17 07:00 Resp 14 07/09/17 07:00 BP 119/69 07/09/17 07:00 Pulse Ox 96 07/09/17 07:00 Intake & Output 07/08/17 07/09/17 07/09/17 18:59 06:59 18:59 Intake Total 200 Output Total 1300 1000 1175 Balance -1100 -1000 -1175 Weight 100.5 kg Intake: Oral 200 Output: Urine 675 Stool 1000 1000 500 Urine/Stool Mix 300 Other: Voiding Method Indwelling Catheter Indwelling Catheter Indwelling Catheter # Voids 130 - Exam PHYSICAL EXAMINATION: Patient is lying in the bed comfortably, no acute distress, awake alert and oriented.. Improved confusion HEENT: Normocephalic. Neck is supple. Pupils reactive. Nostrils clear. Oral cavity is moist. Ears reveal no drainage. Neck reveals no JVD, carotid bruits, or thyromegaly. CHEST EXAMINATION: Trachea is central. Symmetrical expansion. Lung strtaton clear to auscultation and percussion. CARDIAC: Normal S1, S2 with no gallops. No murmurs . Currently in sinus rhythm ABDOMEN: Soft. Bowel sounds normal. No organomegaly. No abdominal bruits. Extremities: 1+ edema. No clubbing or cyanosis Neurologically awake, alert, oriented x3 with well-coordinated movements. No focal deficits noted Skin: No rash or skin lesions. Chronic skin changes. Psychiatric: Coperative. Nonsuicidal Musculoskeletal: No joint swelling or deformity. A medina does have significant osteoarthritis in the hands. Normal range of motion. - Labs CBC & Chem 7: 07/10/17 09:17 07/10/17 09:17 Labs: Abnormal Lab Results - Last 24 Hours (Table) 07/08/17 07/09/17 07/09/17 Range/Units 21:10 06:40 07:32 BUN 130 H* (9-20) mg/dL Creatinine 3.90 H (0.66-1.25) mg/dL Glucose 72 L (74-99) mg/dL POC Glucose (mg/dL) 102 H 100 H (75-99) mg/dL Calcium 7.7 L (8.4-10.2) mg/dL 07/09/17 Range/Units 12:18 BUN (9-20) mg/dL Creatinine (0.66-1.25) mg/dL Glucose (74-99) mg/dL POC Glucose (mg/dL) 103 H (75-99) mg/dL Calcium (8.4-10.2) mg/dL Assessment and Plan Assessment: Acute delirium and acute metabolic encephalopathy improving now. Klebsiella pneumoniae urinary tract infection Bacteremia with Klebsiella pneumonia Diarrhea. C. diff negative. History of C. diff in the past Sepsis secondary to UTI Paroxysmal atrial fibrillation. Rate controlled. Currently in sinus rhythm. Acute on chronic CHF with systolic dysfunction ejection fraction 30-35% Hypertensive heart disease Acute on chronic kidney disease stage IV. Secondary to ATN with sepsis and diarrhea. 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 Baseline creatinine 2.2 maintained on prednisone and Prograf Hypokalemia History of skin cancer Psoriatic arthritis Nephrotic syndrome with FSGS Chronic back pain Bilateral rotator cuff injury Chronic medical debility chronic gait dysfunction at baseline uses a walker Plan: Patient will be continued on antibiotics in the form of ciprofloxacin. Lasix and Neurontin dose has been reduced. We will continue to monitor renal function. Diarrhea is improving otherwise. Continue with the current management and follow up closely. Prognosis is guarded with multiple medical problems and comorbid conditions. Further recommendations based on the clinical course. Nephrology and ID is following. Time with Patient: Greater than 30
--- NOTE | 2017-07-10 17:33 | P.PN ---
Subjective Progress Note Date: 07/10/17 Principal diagnosis: Acute urinary tract infection and delirium and encephalopathy Patient is a 77-year-old male with a known history of paroxysmal atrial fibrillation, CK 80, nephrotic syndrome with underlying FSGS, CHF and multiple other medical problems and gait dysfunction presented with UTI sepsis pneumonia CHF exacerbation and uncontrolled atrial fibrillation. Currently patient is being treated for UTI and Klebsiella bacteremia. Patient otherwise doing better. Patient does have worsening renal function with elevated BNP and creatinine level. 07/09/2017 Today patient is more awake today. Still having diarrhea and the rectal tube. His renal function worsened with creatinine level 3.9. No fever no chills. Patient is still having diarrhea. C. diff is negative. Chest x-ray showed findings can be compatible with acute CHF and pulmonary edema. Findings are similar to the previous day. ID and nephrology is following. 07/10/2017 Patient is more awake and oriented today. Still having diarrhea in the rectal tube. Otherwise continued on Lasix 20 mg daily and Neurontin 300 mg daily. Repeat blood cultures will be ordered. Renal function improved with creatinine level III.3. No fever no chills. No other acute overnight issues. All other review of systems negative except the above Current medications reviewed Active Medications Acetaminophen (Tylenol Tab) 650 mg PO Q6HR PRN PRN Reason: Mild Pain or Fever > 100.5 Last Admin: 07/06/17 03:41 Dose: 650 mg Acetaminophen (Tylenol Suppository) 650 mg RECTAL Q6HR PRN PRN Reason: Fever and/ or Mild Pain Last Admin: 07/04/17 10:12 Dose: 650 mg Allopurinol (Zyloprim) 200 mg PO W/SUPPER [facility] Last Admin: 07/09/17 17:04 Dose: 200 mg Apixaban (Eliquis) 2.5 mg PO BID [facility] Last Admin: 07/10/17 09:00 Dose: 2.5 mg Atorvastatin Calcium (Lipitor) 40 mg PO HS [facility] Last Admin: 07/09/17 22:19 Dose: 40 mg Calcium Carbonate (Oscal 500+D) 1 each PO DAILY [facility] Last Admin: 07/10/17 09:01 Dose: 1 each Cholestyramine Resin (Questran) 4 gm PO BID@1000,1800 [facility] Last Admin: 07/10/17 09:01 Dose: Not Given Diltiazem HCl (Cardizem Cd) 120 mg PO W/SUPPER [facility] Last Admin: 07/09/17 17:03 Dose: 120 mg Diphenoxylate HCl/Atropine (Lomotil) 1 each PO TID [facility] Last Admin: 07/10/17 15:28 Dose: 1 each Famotidine (Pepcid) 20 mg PO HS [facility] Last Admin: 07/09/17 22:19 Dose: 20 mg Furosemide (Lasix) 20 mg PO DAILY [facility] Gabapentin (Neurontin) 300 mg PO DAILY [facility] Last Admin: 07/10/17 09:00 Dose: 300 mg Ciprofloxacin/Dextrose 200 mg/ (IV Solution) 100 mls @ 100 mls/hr IVPB Q12HR [facility] Last Admin: 07/10/17 09:00 Dose: 100 mls/hr Isosorbide Mononitrate (Imdur) 30 mg PO DAILY [facility] Last Admin: 07/10/17 09:00 Dose: 30 mg Lactobacillus Acidoph/Bulgaricus (Lactinex) 1 each PO DAILY [facility] Last Admin: 07/10/17 09:00 Dose: Not Given Leflunomide (Arava) 20 mg PO W/SUPPER [facility] Last Admin: 07/09/17 17:04 Dose: 20 mg Metoprolol Tartrate (Lopressor) 25 mg PO BID [facility] Last Admin: 07/10/17 10:03 Dose: 25 mg Multivitamins (Theragran) 1 each PO 1200 [facility] Last Admin: 07/10/17 09:01 Dose: 1 each Naloxone HCl (Narcan) 0.2 mg IV Q2M PRN PRN Reason: Opioid Reversal Nystatin (Mycostatin Cream) 1 applic TOPICAL BID [facility] Last Admin: 07/10/17 09:01 Dose: 1 applic Nystatin (Mycostatin Powder) 1 applic TOPICAL TID PRN PRN Reason: skine breakdown Last Admin: 07/09/17 11:48 Dose: 1 applic Ondansetron HCl (Zofran) 4 mg IVP Q6HR PRN PRN Reason: Nausea And Vomiting Last Admin: 07/07/17 23:19 Dose: 4 mg Prednisone () 10 mg PO DAILY [facility] Last Admin: 07/10/17 09:01 Dose: 10 mg Repaglinide (Prandin) 1 mg PO AC-TID [facility] Last Admin: 07/10/17 14:27 Dose: Not Given Tacrolimus (Prograf) 1 mg PO DAILY [facility] Last Admin: 07/10/17 08:59 Dose: 1 mg Tamsulosin HCl (Flomax) 0.4 mg PO BID [facility] Last Admin: 07/10/17 08:59 Dose: 0.4 mg Tramadol HCl (Ultram) 50 mg PO BID PRN PRN Reason: Pain Last Admin: 07/10/17 15:24 Dose: 50 mg Objective - Vital Signs Vital signs: Vital Signs Temp 97.2 F L 07/10/17 15:00 Pulse 64 07/10/17 15:00 Resp 16 07/10/17 15:00 BP 120/68 07/10/17 15:00 Pulse Ox 94 L 07/10/17 15:00 Intake & Output 07/09/17 07/10/17 07/10/17 18:59 06:59 18:59 Intake Total 815 Output Total 1625 2000 675 Balance -1624 -1999 140 Weight 98.5 kg Intake: Oral 815 Output: Urine 1125 675 Stool 500 2000 Other: Voiding Method Indwelling Catheter Indwelling Catheter Indwelling Catheter - Exam PHYSICAL EXAMINATION: Patient is lying in the bed comfortably, no acute distress, awake alert and oriented. HEENT: Normocephalic. Neck is supple. Pupils reactive. Nostrils clear. Oral cavity is moist. Ears reveal no drainage. Neck reveals no JVD, carotid bruits, or thyromegaly. CHEST EXAMINATION: Trachea is central. Symmetrical expansion. Lung stratton clear to auscultation and percussion. CARDIAC: Normal S1, S2 with no gallops. No murmurs . Currently in sinus rhythm ABDOMEN: Soft. Bowel sounds normal. No organomegaly. No abdominal bruits. Extremities: 1+ edema. No clubbing or cyanosis Neurologically awake, alert, oriented x3 with well-coordinated movements. No focal deficits noted Skin: No rash or skin lesions. Chronic skin changes. Psychiatric: Coperative. Nonsuicidal Musculoskeletal: No joint swelling or deformity. 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 Normal range of motion. - Labs CBC & Chem 7: 07/10/17 09:17 07/10/17 09:17 Labs: Abnormal Lab Results - Last 24 Hours (Table) 07/09/17 07/10/17 07/10/17 Range/Units 20:52 07:40 09:17 RBC (4.30-5.90) m/uL Hgb (13.0-17.5) gm/dL Hct (39.0-53.0) % Plt Count (150-450) k/uL Lymphocytes # (1.0-4.8) k/uL BUN 118 H* (9-20) mg/dL Creatinine 3.33 H (0.66-1.25) mg/dL POC Glucose (mg/dL) 102 H 102 H (75-99) mg/dL Calcium 7.8 L (8.4-10.2) mg/dL Total Protein 4.8 L (6.3-8.2) g/dL Albumin 2.1 L (3.5-5.0) g/dL 07/10/17 07/10/17 07/10/17 Range/Units 09:17 12:38 17:22 RBC 3.33 L (4.30-5.90) m/uL Hgb 9.9 L D (13.0-17.5) gm/dL Hct 31.9 L (39.0-53.0) % Plt Count 123 L (150-450) k/uL Lymphocytes # 0.4 L (1.0-4.8) k/uL BUN (9-20) mg/dL Creatinine (0.66-1.25) mg/dL POC Glucose (mg/dL) 122 H 146 H (75-99) mg/dL Calcium (8.4-10.2) mg/dL Total Protein (6.3-8.2) g/dL Albumin (3.5-5.0) g/dL Assessment and Plan Assessment: Acute delirium and acute metabolic encephalopathy improving now. Klebsiella pneumoniae urinary tract infection Bacteremia with Klebsiella pneumonia Diarrhea. C. diff negative. History of C. diff in the past Sepsis secondary to UTI Paroxysmal atrial fibrillation. Rate controlled. Currently in sinus rhythm. Acute on chronic CHF with systolic dysfunction ejection fraction 30-35% Hypertensive heart disease Acute on chronic kidney disease stage IV. Secondary to ATN with sepsis and diarrhea. 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 Baseline creatinine 2.2 maintained on prednisone and Prograf Hypokalemia History of skin cancer Psoriatic arthritis Nephrotic syndrome with FSGS Chronic back pain Bilateral rotator cuff injury Chronic medical debility chronic gait dysfunction at baseline uses a walker Plan: Patient will be continued on antibiotics in the form of ciprofloxacin. Lasix and Neurontin dose has been reduced. We will continue to monitor renal function. Diarrhea is improving otherwise. Continue with the current management and follow up closely. Prognosis is guarded with multiple medical problems and comorbid conditions. Further recommendations based on the clinical course. Nephrology and ID is following. Time with Patient: Greater than 30
[2017-07-10] MEDS: DILTIAZEM CD 120 MG CAP.ER.24H PO SCH (18:08)
[2017-07-10] MEDS: LEFLUNOMIDE 20 MG TAB PO SCH (18:08)
[2017-07-10] MEDS: ALLOPURINOL 100 MG TAB PO SCH (18:08)
[2017-07-10 20:53] LABS: Glucose,Whole Blood 160 mg/dL (75-99)
[2017-07-10] MEDS: ATORVASTATIN 40 MG TAB PO SCH (20:56)
[2017-07-10] MEDS: FAMOTIDINE 20 MG TAB PO SCH (20:56)
[2017-07-11 07:14] LABS: Glucose,Whole Blood 109 mg/dL (75-99)
[2017-07-11] MEDS: REPAGLINIDE 1 MG TAB PO SCH ×3 (07:35→18:06)
[2017-07-11] MEDS: CALCIUM CARB-VIT D 500MG-200UN 1 EACH TAB PO SCH (08:55)
[2017-07-11] MEDS: APIXABAN 2.5 MG TABLET PO SCH ×2 (08:55→21:22)
[2017-07-11] MEDS: CIPROFLOXACIN IVPB SCH (08:55)
[2017-07-11] MEDS: DEXTROSE IVPB SCH (08:55)
[2017-07-11] MEDS: FUROSEMIDE 20 MG TAB PO SCH (08:55)
[2017-07-11] MEDS: ISOSORBIDE MONONITRATE ER 30 MG TAB.ER.24H PO SCH (08:55)
[2017-07-11] MEDS: [UNRECOGNIZED DRUG - OTHER] IVPB SCH (08:55)
[2017-07-11] MEDS: predniSONE 10 MG TAB PO SCH (08:56)
[2017-07-11] MEDS: MULTIVITAMINS, THERA 1 EACH TAB PO SCH (08:56)
[2017-07-11] MEDS: traMADol 50 MG TAB PO PRN (08:56)
[2017-07-11] MEDS: TACROLIMUS 1 MG CAP PO SCH (08:56)
[2017-07-11] MEDS: CHOLESTYRAMINE (WITH SUGAR) 4 GM PACKET PO SCH ×2 (08:56→16:47)
[2017-07-11] MEDS: TAMSULOSIN 0.4 MG CAP.ER.24H PO SCH ×2 (08:57→21:22)
[2017-07-11] MEDS: LACTOBACILLUS ACIDOPH & BULGAR 1 EACH PACKET PO SCH (09:21)
[2017-07-11] MEDS: NYSTATIN 100,000 UNIT/GM POWD 15 GM TOPICAL PRN (09:22)
[2017-07-11] MEDS: GABAPENTIN 300 MG CAP PO SCH (09:22)
[2017-07-11] MEDS: DIPHENOX-ATROP 2.5-0.025 MG 1 EACH TAB PO SCH ×3 (09:23→21:30)
[2017-07-11] MEDS: METOPROLOL TARTRATE 25 MG TAB PO SCH ×2 (09:23→21:22)
[2017-07-11] MEDS: NYSTATIN 100,000UNIT/GM CREAM 30 GM TUBE TOPICAL SCH ×2 (09:24→21:22)
[2017-07-11 11:51] LABS: Albumin 2.2 g/dL (3.5-5.0); Potassium 3.6 mmol/L (3.5-5.1); Total Bilirubin 0.3 mg/dL (0.2-1.3)
[2017-07-11 12:26] LABS: Basophils % (A) 0 %; Eosinophils # (A) 0.3 k/uL (0-0.7); Eosinophils % (A) 4 %; HCT 30.5 % (39.0-53.0); Lymphocytes # (A) 0.6 k/uL (1.0-4.8); Lymphocytes % (A) 9 %; MCHC 32.7 g/dL (31.0-37.0); MCV 91.9 fL (80.0-100.0); Mean Platelet Volume 8.7; Monocytes # (A) 0.4 k/uL (0-1.0); Monocytes % (A) 6 %; Neutrophils # (A) 5.3 k/uL (1.3-7.7); Neutrophils % (A) 80 %; Platelet Count 150 k/uL (150-450); RBC 3.31 m/uL (4.30-5.90); RDW 15.2 % (11.5-15.5); WBC 6.6 k/uL (3.8-10.6)
[2017-07-11 12:36] LABS: Glucose,Whole Blood 125 mg/dL (75-99)
--- NOTE | 2017-07-11 14:15 | XR ---
EXAMINATION TYPE: XR chest 1V DATE OF EXAM: 07/11/2017 COMPARISON: Prior chest x-ray 07/09/2017 HISTORY: Congestive heart failure TECHNIQUE: Single frontal view of the chest is obtained. FINDINGS: Suspect some improvement in aeration as compared to prior exam. Heart size is stable. Post op changes again noted. Patient is rotated. IMPRESSION: Improvement in aeration, volume status. Follow-up with PA and lateral chest x-ray when p atient is stable.
--- NOTE | 2017-07-11 15:11 | PN ---
PROGRESS NOTE Patient is seen for followup for acute kidney injury on top of chronic kidney disease. Patient is currently doing very well. He is asking to go home, he is not having any shortness of breath. PHYSICAL EXAMINATION: Blood pressure is 136/82, heart rate 59 per minute. He is afebrile. Examination of the heart, S1, S2. Examination of the lungs, bilateral breath sounds are heard. Abdomen is soft, nontender. Exam of lower extremities shows no evidence of edema. BOBBIN TRUCKER exam is grossly intact. LAB: 1. Show sodium of 141, potassium 3.6, BUN 116, serum creatinine 2.57, hemoglobin 10.0 g/dL. ASSESSMENT: 1. Acute kidney injury associated with the sepsis and hypoperfusion. Currently, significantly improved. Creatinine is down to 2.57 from 3.9 mg/dL on 07/09/2017. He is currently off of RICK inhibitors. Blood pressure is not elevated. Patient is also maintained on a very small dose of Lasix, which we can continue for now. 2. Klebsiella pneumoniae urinary tract infection and bacteremia. Maintained on Cipro. 3. History of Clostridium difficile colitis, status post fecal transplant. 4. Hyperuricemia, maintained on allopurinol. 5. Chronic kidney disease secondary to FSGS, biopsy-proven, maintained on small dose of prednisone and Prograf. Proteinuria has been stable as outpatient. 6. History of severe edema and volume overload, currently much improved. PLAN: Continue current medications. Patient is stable for discharge from Nephrology standpoint with plans to follow up as outpatient in about 1 to 2 weeks' time. MMODL / IJN: [id number] /
[2017-07-11] MEDS: LEFLUNOMIDE 20 MG TAB PO SCH (17:04)
[2017-07-11] MEDS: DILTIAZEM CD 120 MG CAP.ER.24H PO SCH (17:05)
[2017-07-11] MEDS: ALLOPURINOL 100 MG TAB PO SCH (17:05)
[2017-07-11 17:25] LABS: Glucose,Whole Blood 173 mg/dL (75-99)
[2017-07-11 20:41] LABS: Glucose,Whole Blood 156 mg/dL (75-99)
[2017-07-11] MEDS: ATORVASTATIN 40 MG TAB PO SCH (21:22)
[2017-07-11] MEDS: FAMOTIDINE 20 MG TAB PO SCH (21:22)
--- NOTE | 2017-07-11 23:22 | P.PN ---
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 Gill at [facility] on February 04, 2017. He had a recent hospitalization in May which time he was treated for sepsis secondary to urinary tract infection with culture positive for Klebsiella pneumoniae and previous to that urine culture for Enterococcus faecalis. Patient was initially treated with Unasyn and was discharged home on doxycycline. Patient was in his usual state of health until Tuesday morning. His left the home for about 1 hour to go to synagogue and when she came back he had significant weakness and lethargy and fever. She called 911 and patient was brought into [facility] emergency center for evaluation. 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 Chest x-ray shows interstitial pulmonary edema, cardiogenic or noncardiogenic fluid overload or atypical pneumonia. He had a white count of 8.4, hemoglobin 11.4, platelet count 132 which is low from his baseline. BUN 96 and creatinine 2.3. Troponin 0.132. Urinalysis was clear, blood moderate, leukoesterase small, RBC 75, WBCs 26, bacteria many. Urine culture and blood culture are in progress. Patient was started on doxycycline and admitted to the selective care unit and consults requested with nephrology and cardiology. His is very concerned as he is more lethargic this morning than when she left him last evening. Patient failed bedside swallow evaluation and speech therapy is unable to evaluate due to mental status changes. Patient is not staying awake and following only minimal direction. 07/05/2017 patient feels considerably better this afternoon. He is much stronger. Has been sitting up and is no longer feeling very short of breath. He's had some loose stool but without classic findings of C. diff so far. Patient relates that he is not chest pain or abdominal pain at this time. His chronic joint pain without acute change 07/07/2017 reveals the patient to be feeling somewhat better. Less short of breath. Still some loose stools but C. diff was negative. No abdominal pain. No chest pain. 07/08/2017 patient has had a very rough night. He has had increasing confusion. The case is discussed with the and son-in-law. Patient is ill and that he has gram-negative sepsis and worsening renal failure. He has been seen by nephrology with potential contemplation of short-term hemodialysis since the patient would not want long-term hemodialysis. He is having loose stools but there is some form to them. C. diff is negative 2. 07/11/2017 reveals that the patient has now improved. He is awake and alert. Although his mood and affect are angry and aggressive. He is insistent on going home. Although he requires what appears to be a 2 person assist to get out of bed. He relates that he can be dropped off by his power chair in his garage and get around his house easily with his power chair. When asking how he will get from the car into the power chair he relates he'll simply slide into the chair. He denies of any difficulties although at the moment he is requiring 2 people to try to assist him in any kind of transfer. The is ill with influenza and is not the hospital today. The patient was elected to have been able to come home now. We discussed that his is ill and he cannot go home until she is better. Objective - Vital Signs Vital signs: Vital Signs Temp 98.2 F 07/11/17 23:00 Pulse 65 07/11/17 23:00 Resp 17 07/11/17 23:00 BP 154/76 07/11/17 23:00 Pulse Ox 92 L 07/11/17 23:00 Intake & Output 07/11/17 07/11/17 07/12/17 06:59 18:59 06:59 Output Total 400 600 Balance -400 -600 Weight 99.5 kg Output: Urine 600 Stool 400 Other: Voiding Method Indwelling Catheter Indwelling Catheter - Exam Gen: This is an obese 77-year-old male. He is in bed and is moaning occasionally. He does not appear to be in any respiratory distress. HEENT: Head is atraumatic, normocephalic. Pupils equal, round. Sclerae is anicteric. Mucous membranes of the mouth are very dry. NECK: Supple. + JVD. No lymphadenopathy. No thyromegaly. LUNGS: bilateral crackles. No intercostal retractions. HEART: irregular rate and rhythm. systolic murmur. ABDOMEN: Soft. Bowel sounds are present. No masses. No tenderness. Fecal tube in place, some fecal material is escaping around the tube and is having some mild irritation to his skin. EXTREMITIES: 1-2+ bilateral pedal edema without erythema to the lower extremities.. No calf tenderness. Dorsalis pedis +2 bilaterally. NEUROLOGICAL: Patient is now awake alert interactive he is no longer agitated but is angry and defiant about wanting to go home even tonight. I related that I do not have the ability to discharge him and that he would need to have a discharge plan formulated before he goes home. He is specifically it is going to home and would never go to rehab. - Labs CBC & Chem 7: 07/11/17 09:50 07/11/17 09:50 Labs: Abnormal Lab Results - Last 24 Hours (Table) 07/09/17 07/11/17 07/11/17 Range/Units 06:40 07:11 09:50 RBC (4.30-5.90) m/uL Hgb (13.0-17.5) gm/dL Hct (39.0-53.0) % Lymphocytes # (1.0-4.8) k/uL Chloride 108 H (98-107) mmol/L BUN 116 H* (9-20) mg/dL Creatinine 2.57 H (0.66-1.25) mg/dL POC Glucose (mg/dL) 109 H (75-99) mg/dL Calcium 8.0 L (8.4-10.2) mg/dL Total Protein 5.0 L (6.3-8.2) g/dL Albumin 2.2 L (3.5-5.0) g/dL Tacrolimus 1.8 L (5.0-20.0) ng/mL 07/11/17 07/11/17 07/11/17 Range/Units 09:50 12:21 17:21 RBC 3.31 L (4.30-5.90) m/uL Hgb 10.0 L (13.0-17.5) gm/dL Hct 30.5 L (39.0-53.0) % Lymphocytes # 0.6 L (1.0-4.8) k/uL Chloride (98-107) mmol/L BUN (9-20) mg/dL Creatinine (0.66-1.25) mg/dL POC Glucose (mg/dL) 125 H 173 H (75-99) mg/dL Calcium (8.4-10.2) mg/dL Total Protein (6.3-8.2) g/dL Albumin (3.5-5.0) g/dL Tacrolimus (5.0-20.0) ng/mL 07/11/17 Range/Units 20:39 RBC (4.30-5.90) m/uL Hgb (13.0-17.5) gm/dL Hct (39.0-53.0) % Lymphocytes # (1.0-4.8) k/uL Chloride (98-107) mmol/L BUN (9-20) mg/dL Creatinine (0.66-1.25) mg/dL POC Glucose (mg/dL) 156 H (75-99) mg/dL Calcium (8.4-10.2) mg/dL Total Protein (6.3-8.2) g/dL Albumin (3.5-5.0) g/dL Tacrolimus (5.0-20.0) ng/mL Microbiology - Last 24 Hours (Table) 07/10/17 19:45 Blood Culture - Preliminary Blood No Growth after 24 hours Laboratory Results WBC 6.6 k/uL (3.8-10.6) 07/11/17 09:50 RBC 3.31 m/uL (4.30-5.90) L 07/11/17 09:50 Hgb 10.0 gm/dL (13.0-17.5) L 07/11/17 09:50 Hct 30.5 % (39.0-53.0) L 07/11/17 09:50 MCV 91.9 fL (80.0-100.0) 07/11/17 09:50 MCH 30.0 pg (25.0-35.0) 07/11/17 09:50 MCHC 32.7 g/dL (31.0-37.0) 07/11/17 09:50 RDW 15.2 % (11.5-15.5) 07/11/17 09:50 Plt Count 150 k/uL (150-450) 07/11/17 09:50 Neutrophils % 80 % 07/11/17 09:50 Lymphocytes % 9 % 07/11/17 09:50 Monocytes % 6 % 07/11/17 09:50 Eosinophils % 4 % 07/11/17 09:50 Basophils % 0 % 07/11/17 09:50 Neutrophils # 5.3 k/uL (1.3-7.7) 07/11/17 09:50 Lymphocytes # 0.6 k/uL (1.0-4.8) L 07/11/17 09:50 Monocytes # 0.4 k/uL (0-1.0) 07/11/17 09:50 Eosinophils # 0.3 k/uL (0-0.7) 07/11/17 09:50 Basophils # 0.0 k/uL (0-0.2) 07/11/17 09:50 Hypochromasia Slight 07/08/17 02:54 Macrocytosis Slight 07/08/17 02:54 PT 9.9 sec (9.0-12.0) 07/03/17 16:00 INR 1.0 (<1.2) 07/03/17 16:00 APTT 24.1 sec (22.0-30.0) 07/03/17 16:00 Sodium 141 mmol/L (137-145) 07/11/17 09:50 Potassium 3.6 mmol/L (3.5-5.1) 07/11/17 09:50 Chloride 108 mmol/L (98-107) H 07/11/17 09:50 Carbon Dioxide 23 mmol/L (22-30) 07/11/17 09:50 Anion Gap 10 mmol/L 07/11/17 09:50 BUN 116 mg/dL (9-20) H* 07/11/17 09:50 Creatinine 2.57 mg/dL (0.66-1.25) H 07/11/17 09:50 Est GFR (MDRD) Af Amer 30 (>60 ml/min/1.73 sqM) 07/11/17 09:50 Est GFR (MDRD) Non-Af 24 (>60 ml/min/1.73 sqM) 07/11/17 09:50 Glucose 96 mg/dL (74-99) 07/11/17 09:50 POC Glucose (mg/dL) 156 mg/dL (75-99) H 07/11/17 20:39 POC Glu Go Go Dancer Farzaneh Trujillo 07/11/17 20:[address] Glu mg/dL 120 07/07/17 07:32 Hemoglobin A1c 5.8 % (4.0-6.0) 07/07/17 07:32 Plasma Lactic Acid [place] 0.9 mmol/L (0.7-2.0) 07/03/17 16:00 Calcium 8.0 mg/dL (8.4-10.2) L 07/11/17 09:50 Magnesium 2.1 mg/dL (1.6-2.3) 07/07/17 07:32 Total Bilirubin 0.3 mg/dL (0.2-1.3) 07/11/17 09:50 AST 27 U/L (17-59) 07/11/17 09:50 ALT 27 U/L (21-72) 07/11/17 09:50 Alkaline Phosphatase 75 U/L (38-126) 07/11/17 09:50 Total Creatine Kinase 41 U/L (55-170) L 07/03/17 16:00 CK-MB (CK-2) 0.6 ng/mL (0.0-2.4) 07/03/17 16:00 CK-MB (CK-2) Rel Index 1.5 07/03/17 16:00 Troponin I 0.132 ng/mL (0.000-0.034) H* 07/03/17 16:00 NT-Pro-B Natriuret Pep 16770 pg/mL 07/03/17 16:00 Total Protein 5.0 g/dL (6.3-8.2) L 07/11/17 09:50 Albumin 2.2 g/dL (3.5-5.0) L 07/11/17 09:50 Urine Color Yellow 07/03/17 16:49 Urine Appearance Clear (Clear) 07/03/17 16:49 Urine pH 6.0 (5.0-8.0) 07/03/17 16:49 Ur Specific [place] 1.009 (1.001-1.035) 07/03/17 16:49 Urine Protein 3+ (Negative) H 07/03/17 16:49 Urine Glucose (UA) Negative (Negative) 07/03/17 16:49 Urine Ketones Negative (Negative) 07/03/17 16:49 Urine Blood Moderate (Negative) H 07/03/17 16:49 Urine Nitrite Negative (Negative) 07/03/17 16:49 Urine Bilirubin Negative (Negative) 07/03/17 16:49 Urine Urobilinogen <2.0 mg/dL (<2.0) 07/03/17 16:49 Ur Leukocyte Esterase Small (Negative) H 07/03/17 16:49 Urine RBC 75 /hpf (0-5) H 07/03/17 16:49 Urine WBC 26 /hpf (0-5) H 07/03/17 16:49 Ur Squamous Epith Cells <1 /hpf (0-4) 07/03/17 16:49 Urine Bacteria Many /hpf (None) H 07/03/17 16:49 Hyaline Casts 1 /lpf (0-2) 07/03/17 16:49 Urine Mucus Rare /hpf (None) H 07/03/17 16:49 Tacrolimus 1.8 ng/mL (5.0-20.0) L 07/09/17 06:40 C. difficile (EIA) Intrp Negative (Negative) 07/08/17 23:54 Influenza Type A RNA Not Detected (Not Detectd) 07/04/17 10:04 Influenza Type B (PCR) Not Detected (Not Detectd) 07/04/17 10:04 Microbiology 07/10/17 19:45 Blood Blood Culture - Preliminary No Growth after 24 hours 07/03/17 16:00 Blood Blood Culture Gram Stain - Final 07/03/17 16:00 Blood Blood Culture - Final Klebsiella pneumoniae 07/03/17 16:49 Urine,Catheterized Urine Culture - Final Klebsiella pneumoniae 07/03/17 16:00 Blood Blood Culture - Final Assessment and Plan (1) CHF (congestive heart failure) Current Visit: Yes Status: Acute Code(s): I50.9 - HEART FAILURE, UNSPECIFIED SNOMED Code(s): 43108830 (2) UTI (urinary tract infection) Narrative/Plan: This pleasant 77 showed gentleman has been asked was multiple times is well- known to the service. Now presents with evidence of significant sepsis. Appears to have a urinary tract infection and with his history ampicillin sulbactam will be utilized until we have further information. Ongoing concern will be to the redevelopment of C. diff colitis given his history of prior events and fecal transplantation. The patient is very unhappy that he is so ill at this time. His psoriatic arthritis is stable at the moment. She has noted he does have leukocytosis and chronic renal failure. Urine culture does reveal evidence of a gram-negative bacilli and this is the likely source of his current sepsis. Probiotic therapy to be utilized if he can tolerate. 07/05/2017 reveals the patient to be considerably improved. He is now awake alert interactive and generally feeling better. He ingested his dinner without troubles. He apparently Has had a loose stool but no evidence for C. diff at this moment. This patient improves and gets ready for discharge to home fortunately oral antibiotic therapy and discharged with doxycycline 100 mg orally twice per day Utilize complete the course of his klebsiella urinary tract infection. As before continue probiotic therapy as he tolerates. Diarrhea will be monitored. 07/07/2017. The patient now has evidence of positive blood culture for the Klebsiella that was found in his urine. Consequently will not be able to utilize doxycycline but will complete his course of ciprofloxacin. After monitor him closely for redevelopment of C. diff colitis on antibiotic therapy. Continue probiotic therapy as before. Hopefully ready for discharge soon. 07/08/2017 patient has had worsening status. He is receiving oral antibiotic therapy with ciprofloxacin with attempts to reduce his much volume as possible with his worsening renal failure. He fortunately does not have C. diff. Rectal tube is in place because of the high-volume stools that he is producing. C. diff is negative 2 Some Questran will be added to see if this cannot bulk up his stool a bit given his current symptoms. The patient's poor prognosis is discussed with the and son-in-law. 07/11/2017 reveals the patient has now had an improvement of his status. Diarrhea is resolved. No longer has a rectal tube in place. His rectal area discomfort have improved with removal of the tube. He is eating although not very well but is denying nausea or emesis. Overall pains have improved. With his improved creatinine his mentation is improved although he is still irritated about his status. He also is very realistic about how he is going to get home if he is not able to assist in transfers as he routinely does. Current Visit: No Status: Acute Code(s): N39.0 - URINARY TRACT INFECTION, SITE NOT SPECIFIED SNOMED Code(s): 38256349 (3) Chronic renal failure Current Visit: Yes Status: Acute Code(s): N18.9 - CHRONIC KIDNEY DISEASE, UNSPECIFIED SNOMED Code(s): 53239542
[2017-07-12 07:09] LABS: Glucose,Whole Blood 99 mg/dL (75-99)
[2017-07-12] MEDS: REPAGLINIDE 1 MG TAB PO SCH ×3 (08:00→16:33)
[2017-07-12] MEDS: CALCIUM CARB-VIT D 500MG-200UN 1 EACH TAB PO SCH (08:00)
[2017-07-12] MEDS: APIXABAN 2.5 MG TABLET PO SCH ×2 (08:00→21:57)
[2017-07-12] MEDS: ISOSORBIDE MONONITRATE ER 30 MG TAB.ER.24H PO SCH (08:01)
[2017-07-12] MEDS: METOPROLOL TARTRATE 25 MG TAB PO SCH ×2 (08:01→21:57)
[2017-07-12] MEDS: FUROSEMIDE 20 MG TAB PO SCH (08:01)
[2017-07-12] MEDS: GABAPENTIN 300 MG CAP PO SCH (08:01)
[2017-07-12] MEDS: LACTOBACILLUS ACIDOPH & BULGAR 1 EACH PACKET PO SCH (08:01)
[2017-07-12] MEDS: predniSONE 10 MG TAB PO SCH (08:02)
[2017-07-12] MEDS: CHOLESTYRAMINE (WITH SUGAR) 4 GM PACKET PO SCH ×2 (08:02→17:56)
[2017-07-12] MEDS: TAMSULOSIN 0.4 MG CAP.ER.24H PO SCH ×2 (08:02→21:57)
[2017-07-12] MEDS: TACROLIMUS 1 MG CAP PO SCH (08:02)
[2017-07-12] MEDS: DIPHENOX-ATROP 2.5-0.025 MG 1 EACH TAB PO SCH ×3 (08:06→21:57)
[2017-07-12] MEDS: [UNRECOGNIZED DRUG - OTHER] IVPB SCH (08:07)
[2017-07-12] MEDS: CIPROFLOXACIN IVPB SCH (08:07)
[2017-07-12] MEDS: DEXTROSE IVPB SCH (08:07)
[2017-07-12] MEDS: NYSTATIN 100,000UNIT/GM CREAM 30 GM TUBE TOPICAL SCH ×2 (08:08→21:57)
[2017-07-12] MEDS: MULTIVITAMINS, THERA 1 EACH TAB PO SCH (11:30)
[2017-07-12 12:44] LABS: Glucose,Whole Blood 129 mg/dL (75-99)
[2017-07-12] MEDS: ALLOPURINOL 100 MG TAB PO SCH (16:32)
[2017-07-12] MEDS: DILTIAZEM CD 120 MG CAP.ER.24H PO SCH (16:33)
[2017-07-12] MEDS: LEFLUNOMIDE 20 MG TAB PO SCH (16:33)
[2017-07-12 17:15] LABS: Glucose,Whole Blood 161 mg/dL (75-99)
[2017-07-12 20:42] LABS: Glucose,Whole Blood 144 mg/dL (75-99)
--- NOTE | 2017-07-12 21:51 | PN ---
PROGRESS NOTE The patient is seen for followup for acute kidney injury and chronic kidney disease. His renal function is stable. He is currently awaiting placement versus going home. Currently patient is comfortable awake. He is lying flat. No acute shortness of breath or chest pain. He has an indwelling Maldonado catheter. Blood pressure is 128/86, heart rate 66 per minute. Patient is afebrile. HEART: S1, S2. LUNGS: Bilateral breath sounds are heard. Abdomen is soft, nontender. Lower extremities show no evidence of edema. [employer] is grossly intact. LABS: Not available from today. From yesterday, serum creatinine was 2.57 with BUN of 116, potassium 3.6. ASSESSMENT: 1. Chronic kidney disease, National [employer] stage 4, renal function currently at baseline. Etiology is biopsy-proven focal segmental glomerulosclerosis. 2. Acute kidney injury, mainly prerenal, currently improved. Patient remains off of angiotensin-converting enzyme inhibitors. He is off of IV fluids. 3. Urinary tract infection with Klebsiella pneumoniae with bacteremia with Klebsiella pneumoniae as well. 4. Urine retention, currently with indwelling Maldonado catheter. PLAN: Continue off of RICK inhibitors. Patient is stable for discharge from Nephrology standpoint. He will follow up as outpatient in about 1-2 weeks post discharge. MMODL / IJN: [id number] /
[2017-07-12] MEDS: FAMOTIDINE 20 MG TAB PO SCH (21:57)
[2017-07-12] MEDS: ATORVASTATIN 40 MG TAB PO SCH (21:57)
--- NOTE | 2017-07-12 23:10 | P.PN ---
Subjective Progress Note Date: 07/11/17 Principal diagnosis: Acute urinary tract infection and delirium and encephalopathy Patient is a 77-year-old male with a known history of paroxysmal atrial fibrillation, CK 80, nephrotic syndrome with underlying FSGS, CHF and multiple other medical problems and gait dysfunction presented with UTI sepsis pneumonia CHF exacerbation and uncontrolled atrial fibrillation. Currently patient is being treated for UTI and Klebsiella bacteremia. Patient otherwise doing better. Patient does have worsening renal function with elevated BNP and creatinine level. 07/09/2017 Today patient is more awake today. Still having diarrhea and the rectal tube. His renal function worsened with creatinine level 3.9. No fever no chills. Patient is still having diarrhea. C. diff is negative. Chest x-ray showed findings can be compatible with acute CHF and pulmonary edema. Findings are similar to the previous day. ID and nephrology is following. 07/10/2017 Patient is more awake and oriented today. Still having diarrhea in the rectal tube. Otherwise continued on Lasix 20 mg daily and Neurontin 300 mg daily. Repeat blood cultures will be ordered. Renal function improved with creatinine level III.3. No fever no chills. No other acute overnight issues. 07/11/2017 Patient's mental status is at baseline. Otherwise diarrhea improved and rectal tube has been discontinued. Renal function improved with creatinine level II.57. Patient is being continued on antibiotics and cough ciprofloxacin and ID is following as well as nephrology. Otherwise patient was to be discharged home. No other acute overnight issues. Repeat blood cultures have been negative so far All other review of systems negative except the above Current medications reviewed Active Medications Acetaminophen (Tylenol Tab) 650 mg PO Q6HR PRN PRN Reason: Mild Pain or Fever > 100.5 Last Admin: 07/06/17 03:41 Dose: 650 mg Acetaminophen (Tylenol Suppository) 650 mg RECTAL Q6HR PRN PRN Reason: Fever and/ or Mild Pain Last Admin: 07/04/17 10:12 Dose: 650 mg Allopurinol (Zyloprim) 200 mg PO W/SUPPER [facility] Last Admin: 07/09/17 17:04 Dose: 200 mg Apixaban (Eliquis) 2.5 mg PO BID [facility] Last Admin: 07/10/17 09:00 Dose: 2.5 mg Atorvastatin Calcium (Lipitor) 40 mg PO HS [facility] Last Admin: 07/09/17 22:19 Dose: 40 mg Calcium Carbonate (Oscal 500+D) 1 each PO DAILY [facility] Last Admin: 07/10/17 09:01 Dose: 1 each Cholestyramine Resin (Questran) 4 gm PO BID@1000,1800 [facility] Last Admin: 07/10/17 09:01 Dose: Not Given Diltiazem HCl (Cardizem Cd) 120 mg PO W/SUPPER [facility] Last Admin: 07/09/17 17:03 Dose: 120 mg Diphenoxylate HCl/Atropine (Lomotil) 1 each PO TID [facility] Last Admin: 07/10/17 15:28 Dose: 1 each Famotidine (Pepcid) 20 mg PO HS [facility] Last Admin: 07/09/17 22:19 Dose: 20 mg Furosemide (Lasix) 20 mg PO DAILY [facility] Gabapentin (Neurontin) 300 mg PO DAILY [facility] Last Admin: 07/10/17 09:00 Dose: 300 mg Ciprofloxacin/Dextrose 200 mg/ (IV Solution) 100 mls @ 100 mls/hr IVPB Q12HR [facility] Last Admin: 07/10/17 09:00 Dose: 100 mls/hr Isosorbide Mononitrate (Imdur) 30 mg PO DAILY [facility] Last Admin: 07/10/17 09:00 Dose: 30 mg Lactobacillus Acidoph/Bulgaricus (Lactinex) 1 each PO DAILY [facility] Last Admin: 07/10/17 09:00 Dose: Not Given Leflunomide (Arava) 20 mg PO W/SUPPER [facility] Last Admin: 07/09/17 17:04 Dose: 20 mg Metoprolol Tartrate (Lopressor) 25 mg PO BID [facility] Last Admin: 07/10/17 10:03 Dose: 25 mg Multivitamins (Theragran) 1 each PO 1200 [facility] Last Admin: 07/10/17 09:01 Dose: 1 each Naloxone HCl (Narcan) 0.2 mg IV Q2M PRN PRN Reason: Opioid Reversal Nystatin (Mycostatin Cream) 1 applic TOPICAL BID [facility] Last Admin: 07/10/17 09:01 Dose: 1 applic Nystatin (Mycostatin Powder) 1 applic TOPICAL TID PRN PRN Reason: skine breakdown Last Admin: 07/09/17 11:48 Dose: 1 applic Ondansetron HCl (Zofran) 4 mg IVP Q6HR PRN PRN Reason: Nausea And Vomiting Last Admin: 07/07/17 23:19 Dose: 4 mg Prednisone () 10 mg PO DAILY [facility] Last Admin: 07/10/17 09:01 Dose: 10 mg Repaglinide (Prandin) 1 mg PO AC-TID [facility] Last Admin: 07/10/17 14:27 Dose: Not Given Tacrolimus (Prograf) 1 mg PO DAILY [facility] Last Admin: 07/10/17 08:59 Dose: 1 mg Tamsulosin HCl (Flomax) 0.4 mg PO BID [facility] Last Admin: 07/10/17 08:59 Dose: 0.4 mg Tramadol HCl (Ultram) 50 mg PO BID PRN PRN Reason: Pain Last Admin: 07/10/17 15:24 Dose: 50 mg Objective - Vital Signs Vital signs: Vital Signs Temp 96.7 F L 07/11/17 15:55 Pulse 66 07/11/17 21:20 Resp 18 07/11/17 15:55 BP 142/79 07/11/17 21:20 Pulse Ox 95 07/11/17 15:55 Intake & Output 07/11/17 07/11/17 07/12/17 06:59 18:59 06:59 Output Total 400 600 Balance -400 -600 Weight 99.5 kg Output: Urine 600 Stool 400 Other: Voiding Method Indwelling Catheter Indwelling Catheter - Exam PHYSICAL EXAMINATION: Patient is lying in the bed comfortably, no acute distress, awake alert and oriented. HEENT: Normocephalic. Neck is supple. Pupils reactive. Nostrils clear. Oral cavity is moist. Ears reveal no drainage. Neck reveals no JVD, carotid bruits, or thyromegaly. CHEST EXAMINATION: Trachea is central. Symmetrical expansion. Lung stratton clear to auscultation and percussion. CARDIAC: Normal S1, S2 with no gallops. No murmurs . Currently in sinus rhythm ABDOMEN: Soft. Bowel sounds normal. No organomegaly. No abdominal bruits. Extremities: 1+ edema. No clubbing or cyanosis Neurologically awake, alert, oriented x3 with well-coordinated movements. Bilateral lower extremity weakness Skin: No rash or skin lesions. Chronic skin changes. Psychiatric: Coperative. Nonsuicidal Musculoskeletal: No joint swelling or deformity. 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 Normal range of motion. - Labs CBC & Chem 7: 07/11/17 09:50 07/11/17 09:50 Labs: Abnormal Lab Results - Last 24 Hours (Table) 07/09/17 07/11/17 07/11/17 Range/Units 06:40 07:11 09:50 RBC (4.30-5.90) m/uL Hgb (13.0-17.5) gm/dL Hct (39.0-53.0) % Lymphocytes # (1.0-4.8) k/uL Chloride 108 H (98-107) mmol/L BUN 116 H* (9-20) mg/dL Creatinine 2.57 H (0.66-1.25) mg/dL POC Glucose (mg/dL) 109 H (75-99) mg/dL Calcium 8.0 L (8.4-10.2) mg/dL Total Protein 5.0 L (6.3-8.2) g/dL Albumin 2.2 L (3.5-5.0) g/dL Tacrolimus 1.8 L (5.0-20.0) ng/mL 07/11/17 07/11/17 07/11/17 Range/Units 09:50 12:21 17:21 RBC 3.31 L (4.30-5.90) m/uL Hgb 10.0 L (13.0-17.5) gm/dL Hct 30.5 L (39.0-53.0) % Lymphocytes # 0.6 L (1.0-4.8) k/uL Chloride (98-107) mmol/L BUN (9-20) mg/dL Creatinine (0.66-1.25) mg/dL POC Glucose (mg/dL) 125 H 173 H (75-99) mg/dL Calcium (8.4-10.2) mg/dL Total Protein (6.3-8.2) g/dL Albumin (3.5-5.0) g/dL Tacrolimus (5.0-20.0) ng/mL 07/11/17 Range/Units 20:39 RBC (4.30-5.90) m/uL Hgb (13.0-17.5) gm/dL Hct (39.0-53.0) % Lymphocytes # (1.0-4.8) k/uL Chloride (98-107) mmol/L BUN (9-20) mg/dL Creatinine (0.66-1.25) mg/dL POC Glucose (mg/dL) 156 H (75-99) mg/dL Calcium (8.4-10.2) mg/dL Total Protein (6.3-8.2) g/dL Albumin (3.5-5.0) g/dL Tacrolimus (5.0-20.0) ng/mL Microbiology - Last 24 Hours (Table) 07/10/17 19:45 Blood Culture - Preliminary Blood No Growth after 24 hours Assessment and Plan Assessment: Acute delirium and acute metabolic encephalopathy resolved. Klebsiella pneumoniae urinary tract infection Bacteremia with Klebsiella pneumonia Diarrhea. Resolved. Rectal tube removed C. diff negative. History of C. diff in the past Sepsis secondary to UTI Paroxysmal atrial fibrillation. Rate controlled. Currently in sinus rhythm. Acute on chronic CHF with systolic dysfunction ejection fraction 30-35% Hypertensive heart disease Acute on chronic kidney disease stage IV. Secondary to ATN with sepsis and diarrhea. 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 Baseline creatinine 2.2 maintained on prednisone and Prograf Hypokalemia History of skin cancer Psoriatic arthritis Nephrotic syndrome with FSGS Chronic back pain Bilateral rotator cuff injury Chronic medical debility chronic gait dysfunction at baseline uses a walker Plan: Patient will be continued on antibiotics in the form of ciprofloxacin. Lasix and Neurontin dose has been reduced. We will continue to monitor renal function. Diarrhea is improving otherwise. Continue with the current management and follow up closely. Prognosis is guarded with multiple medical problems and comorbid conditions. Further recommendations based on the clinical course. Nephrology and ID is following. Time with Patient: Greater than 30
--- NOTE | 2017-07-12 23:11 | P.PN ---
Subjective Progress Note Date: 07/12/17 Principal diagnosis: Acute urinary tract infection and delirium and encephalopathy Patient is a 77-year-old male with a known history of paroxysmal atrial fibrillation, CK 80, nephrotic syndrome with underlying FSGS, CHF and multiple other medical problems and gait dysfunction presented with UTI sepsis pneumonia CHF exacerbation and uncontrolled atrial fibrillation. Currently patient is being treated for UTI and Klebsiella bacteremia. Patient otherwise doing better. Patient does have worsening renal function with elevated BNP and creatinine level. 07/09/2017 Today patient is more awake today. Still having diarrhea and the rectal tube. His renal function worsened with creatinine level 3.9. No fever no chills. Patient is still having diarrhea. C. diff is negative. Chest x-ray showed findings can be compatible with acute CHF and pulmonary edema. Findings are similar to the previous day. ID and nephrology is following. 07/10/2017 Patient is more awake and oriented today. Still having diarrhea in the rectal tube. Otherwise continued on Lasix 20 mg daily and Neurontin 300 mg daily. Repeat blood cultures will be ordered. Renal function improved with creatinine level III.3. No fever no chills. No other acute overnight issues. 07/11/2017 Patient's mental status is at baseline. Otherwise diarrhea improved and rectal tube has been discontinued. Renal function improved with creatinine level II.57. Patient is being continued on antibiotics and cough ciprofloxacin and ID is following as well as nephrology. Otherwise patient was to be discharged home. No other acute overnight issues. Repeat blood cultures have been negative so far. 07/12/2017 Patient denied any complaints of chest pain or shortness of breath. No diarrhea. Maldonado catheter will be discontinued and trial avoid. Otherwise patient is clinically stable to be discharged home. Anticipate in next 24 hours. We will repeat BMP. All other review of systems negative except the above Current medications reviewed Active Medications Acetaminophen (Tylenol Tab) 650 mg PO Q6HR PRN PRN Reason: Mild Pain or Fever > 100.5 Last Admin: 07/06/17 03:41 Dose: 650 mg Acetaminophen (Tylenol Suppository) 650 mg RECTAL Q6HR PRN PRN Reason: Fever and/ or Mild Pain Last Admin: 07/04/17 10:12 Dose: 650 mg Allopurinol (Zyloprim) 200 mg PO W/SUPPER NEW Last Admin: 07/09/17 17:04 Dose: 200 mg Apixaban (Eliquis) 2.5 mg PO BID [facility] Last Admin: 07/10/17 09:00 Dose: 2.5 mg Atorvastatin Calcium (Lipitor) 40 mg PO HS [facility] Last Admin: 07/09/17 22:19 Dose: 40 mg Calcium Carbonate (Oscal 500+D) 1 each PO DAILY [facility] Last Admin: 07/10/17 09:01 Dose: 1 each Cholestyramine Resin (Questran) 4 gm PO BID@1000,1800 [facility] Last Admin: 07/10/17 09:01 Dose: Not Given Diltiazem HCl (Cardizem Cd) 120 mg PO W/SUPPER [facility] Last Admin: 07/09/17 17:03 Dose: 120 mg Diphenoxylate HCl/Atropine (Lomotil) 1 each PO TID [facility] Last Admin: 07/10/17 15:28 Dose: 1 each Famotidine (Pepcid) 20 mg PO HS [facility] Last Admin: 07/09/17 22:19 Dose: 20 mg Furosemide (Lasix) 20 mg PO DAILY [facility] Gabapentin (Neurontin) 300 mg PO DAILY [facility] Last Admin: 07/10/17 09:00 Dose: 300 mg Ciprofloxacin/Dextrose 200 mg/ (IV Solution) 100 mls @ 100 mls/hr IVPB Q12HR [facility] Last Admin: 07/10/17 09:00 Dose: 100 mls/hr Isosorbide Mononitrate (Imdur) 30 mg PO DAILY [facility] Last Admin: 07/10/17 09:00 Dose: 30 mg Lactobacillus Acidoph/Bulgaricus (Lactinex) 1 each PO DAILY [facility] Last Admin: 07/10/17 09:00 Dose: Not Given Leflunomide (Arava) 20 mg PO W/SUPPER [facility] Last Admin: 07/09/17 17:04 Dose: 20 mg Metoprolol Tartrate (Lopressor) 25 mg PO BID [facility] Last Admin: 07/10/17 10:03 Dose: 25 mg Multivitamins (Theragran) 1 each PO 1200 [facility] Last Admin: 07/10/17 09:01 Dose: 1 each Naloxone HCl (Narcan) 0.2 mg IV Q2M PRN PRN Reason: Opioid Reversal Nystatin (Mycostatin Cream) 1 applic TOPICAL BID [facility] Last Admin: 07/10/17 09:01 Dose: 1 applic Nystatin (Mycostatin Powder) 1 applic TOPICAL TID PRN PRN Reason: skine breakdown Last Admin: 07/09/17 11:48 Dose: 1 applic Ondansetron HCl (Zofran) 4 mg IVP Q6HR PRN PRN Reason: Nausea And Vomiting Last Admin: 07/07/17 23:19 Dose: 4 mg Prednisone () 10 mg PO DAILY [facility] Last Admin: 07/10/17 09:01 Dose: 10 mg Repaglinide (Prandin) 1 mg PO AC-TID [facility] Last Admin: 07/10/17 14:27 Dose: Not Given Tacrolimus (Prograf) 1 mg PO DAILY [facility] Last Admin: 07/10/17 08:59 Dose: 1 mg Tamsulosin HCl (Flomax) 0.4 mg PO BID [facility] Last Admin: 07/10/17 08:59 Dose: 0.4 mg Tramadol HCl (Ultram) 50 mg PO BID PRN PRN Reason: Pain Last Admin: 07/10/17 15:24 Dose: 50 mg Objective - Vital Signs Vital signs: Vital Signs Temp 97.8 F 07/12/17 22:53 Pulse 70 07/12/17 22:53 Resp 18 07/12/17 22:53 BP 128/74 07/12/17 22:53 Pulse Ox 95 07/12/17 22:53 Intake & Output 07/12/17 07/12/17 07/13/17 06:59 18:59 06:59 Output Total 1000 900 Balance -1000 -900 Weight 99 kg Output: Urine 1000 900 Other: Voiding Method Indwelling Catheter Indwelling Catheter # Bowel Movements 1 - Exam PHYSICAL EXAMINATION: Patient is lying in the bed comfortably, no acute distress, awake alert and oriented. HEENT: Normocephalic. Neck is supple. Pupils reactive. Nostrils clear. Oral cavity is moist. Ears reveal no drainage. Neck reveals no JVD, carotid bruits, or thyromegaly. CHEST EXAMINATION: Trachea is central. Symmetrical expansion. Lung stratton clear to auscultation and percussion. CARDIAC: Normal S1, S2 with no gallops. No murmurs . Currently in sinus rhythm ABDOMEN: Soft. Bowel sounds normal. No organomegaly. No abdominal bruits. Extremities: 1+ edema. No clubbing or cyanosis Neurologically awake, alert, oriented x3 with well-coordinated movements. Bilateral lower extremity weakness Skin: No rash or skin lesions. Chronic skin changes. Psychiatric: Coperative. Nonsuicidal Musculoskeletal: No joint swelling or deformity. 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 Normal range of motion. - Labs CBC & Chem 7: 07/11/17 09:50 07/11/17 09:50 Labs: Abnormal Lab Results - Last 24 Hours (Table) 07/12/17 07/12/17 07/12/17 Range/Units 12:35 17:12 20:40 POC Glucose (mg/dL) 129 H 161 H 144 H (75-99) mg/dL Microbiology - Last 24 Hours (Table) 07/10/17 19:45 Blood Culture - Preliminary Blood No Growth after 48 hours Assessment and Plan Assessment: Acute delirium and acute metabolic encephalopathy resolved. Klebsiella pneumoniae urinary tract infection Bacteremia with Klebsiella pneumonia Diarrhea. Resolved. Rectal tube removed C. diff negative. History of C. diff in the past Sepsis secondary to UTI Paroxysmal atrial fibrillation. Rate controlled. Currently in sinus rhythm. Acute on chronic CHF with systolic dysfunction ejection fraction 30-35% Hypertensive heart disease Acute on chronic kidney disease stage IV. Secondary to ATN with sepsis and diarrhea. 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 Baseline creatinine 2.2 maintained on prednisone and Prograf Hypokalemia History of skin cancer Psoriatic arthritis Nephrotic syndrome with FSGS Chronic back pain Bilateral rotator cuff injury Chronic medical debility chronic gait dysfunction at baseline uses a walker Plan: Patient will be continued on antibiotics in the form of ciprofloxacin. Lasix and Neurontin dose has been reduced. We will continue to monitor renal function. Diarrhea is improving otherwise. Continue with the current management and follow up closely. Prognosis is guarded with multiple medical problems and comorbid conditions. Further recommendations based on the clinical course. Nephrology and ID is following.
--- NOTE | 2017-07-12 23:28 | P.PN ---
Subjective Progress Note Date: 07/12/17 Principal diagnosis: weakness this is a 77-year-old male patient well-known to ID service with history of psoriatic arthritis on Arava and chronic kidney disease stage III secondary to biopsy-proven FSGS with baseline creatinine of 1.7 on Prograf and prednisone and follows at [facility], anemia of chronic disease and receives Procrit injection every Tuesday at [facility]. 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 Gill at [facility] on February 04, 2017. He had a recent hospitalization in May which time he was treated for sepsis secondary to urinary tract infection with culture positive for Klebsiella pneumoniae and previous to that urine culture for Enterococcus faecalis. Patient was initially treated with Unasyn and was discharged home on doxycycline. Patient was in his usual state of health until Tuesday morning. His left the home for about 1 hour to go to [place] and when she came back he had significant weakness and lethargy and fever. She called 911 and patient was brought into [facility] emergency center for evaluation. 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 Chest x-ray shows interstitial pulmonary edema, cardiogenic or noncardiogenic fluid overload or atypical pneumonia. He had a white count of 8.4, hemoglobin 11.4, platelet count 132 which is low from his baseline. BUN 96 and creatinine 2.3. Troponin 0.132. Urinalysis was clear, blood moderate, leukoesterase small, RBC 75, WBCs 26, bacteria many. Urine culture and blood culture are in progress. Patient was started on doxycycline and admitted to the selective care unit and consults requested with nephrology and cardiology. His is very concerned as he is more lethargic this morning than when she left him last evening. Patient failed bedside swallow evaluation and speech therapy is unable to evaluate due to mental status changes. Patient is not staying awake and following only minimal direction. 07/05/2017 patient feels considerably better this afternoon. He is much stronger. Has been sitting up and is no longer feeling very short of breath. He's had some loose stool but without classic findings of C. diff so far. Patient relates that he is not chest pain or abdominal pain at this time. His chronic joint pain without acute change 07/07/2017 reveals the patient to be feeling somewhat better. Less short of breath. Still some loose stools but C. diff was negative. No abdominal pain. No chest pain. 07/08/2017 patient has had a very rough night. He has had increasing confusion. The case is discussed with the and son-in-law. Patient is ill and that he has gram-negative sepsis and worsening renal failure. He has been seen by nephrology with potential contemplation of short-term hemodialysis since the patient would not want long-term hemodialysis. He is having loose stools but there is some form to them. C. diff is negative 2. 07/11/2017 reveals that the patient has now improved. He is awake and alert. Although his mood and affect are angry and aggressive. He is insistent on going home. Although he requires what appears to be a 2 person assist to get out of bed. He relates that he can be dropped off by his power chair in his garage and get around his house easily with his power chair. When asking how he will get from the car into the power chair he relates he'll simply slide into the chair. He denies of any difficulties although at the moment he is requiring 2 people to try to assist him in any kind of transfer. The is ill with influenza and is not the hospital today. The patient was elected to have been able to come home now. We discussed that his is ill and he cannot go home until she is better. 07/12/2017 patient is improved further. He is no longer angry or aggressive. Is just really wanting to go home. He is hoping his is well enough tomorrow that'll be able to get him home, he is really tired of being hospitalized. Objective - Vital Signs Vital signs: Vital Signs Temp 97.8 F 07/12/17 22:53 Pulse 70 07/12/17 22:53 Resp 18 07/12/17 22:53 BP 128/74 07/12/17 22:53 Pulse Ox 95 07/12/17 22:53 Intake & Output 07/12/17 07/12/17 07/13/17 06:59 18:59 06:59 Output Total 1000 900 Balance -1000 -900 Weight 99 kg Output: Urine 1000 900 Other: Voiding Method Indwelling Catheter Indwelling Catheter # Bowel Movements 1 - Exam Gen: This is an obese 77-year-old male. He is in bed and is moaning occasionally. He does not appear to be in any respiratory distress. HEENT: Head is atraumatic, normocephalic. Pupils equal, round. Sclerae is anicteric. Mucous membranes of the mouth are very dry. NECK: Supple. + JVD. No lymphadenopathy. No thyromegaly. LUNGS: bilateral crackles. No intercostal retractions. HEART: irregular rate and rhythm. systolic murmur. ABDOMEN: Soft. Bowel sounds are present. No masses. No tenderness. Fecal tube in place, some fecal material is escaping around the tube and is having some mild irritation to his skin. EXTREMITIES: 1-2+ bilateral pedal edema without erythema to the lower extremities.. No calf tenderness. Dorsalis pedis +2 bilaterally. NEUROLOGICAL: Patient is now awake alert interactive he is calm and cooperative and looks forward to going home tomorrow. He is specifically it is going to home and would never go to rehab. - Labs CBC & Chem 7: 07/11/17 09:50 07/11/17 09:50 Labs: Abnormal Lab Results - Last 24 Hours (Table) 07/12/17 07/12/17 07/12/17 Range/Units 12:35 17:12 20:40 POC Glucose (mg/dL) 129 H 161 H 144 H (75-99) mg/dL Microbiology - Last 24 Hours (Table) 07/10/17 19:45 Blood Culture - Preliminary Blood No Growth after 48 hours Laboratory Results WBC 6.6 k/uL (3.8-10.6) 07/11/17 09:50 RBC 3.31 m/uL (4.30-5.90) L 07/11/17 09:50 Hgb 10.0 gm/dL (13.0-17.5) L 07/11/17 09:50 Hct 30.5 % (39.0-53.0) L 07/11/17 09:50 MCV 91.9 fL (80.0-100.0) 07/11/17 09:50 MCH 30.0 pg (25.0-35.0) 07/11/17 09:50 MCHC 32.7 g/dL (31.0-37.0) 07/11/17 09:50 RDW 15.2 % (11.5-15.5) 07/11/17 09:50 Plt Count 150 k/uL (150-450) 07/11/17 09:50 Neutrophils % 80 % 07/11/17 09:50 Lymphocytes % 9 % 07/11/17 09:50 Monocytes % 6 % 07/11/17 09:50 Eosinophils % 4 % 07/11/17 09:50 Basophils % 0 % 07/11/17 09:50 Neutrophils # 5.3 k/uL (1.3-7.7) 07/11/17 09:50 Lymphocytes # 0.6 k/uL (1.0-4.8) L 07/11/17 09:50 Monocytes # 0.4 k/uL (0-1.0) 07/11/17 09:50 Eosinophils # 0.3 k/uL (0-0.7) 07/11/17 09:50 Basophils # 0.0 k/uL (0-0.2) 07/11/17 09:50 Hypochromasia Slight 07/08/17 02:54 Macrocytosis Slight 07/08/17 02:54 PT 9.9 sec (9.0-12.0) 07/03/17 16:00 INR 1.0 (<1.2) 07/03/17 16:00 APTT 24.1 sec (22.0-30.0) 07/03/17 16:00 Sodium 141 mmol/L (137-145) 07/11/17 09:50 Potassium 3.6 mmol/L (3.5-5.1) 07/11/17 09:50 Chloride 108 mmol/L (98-107) H 07/11/17 09:50 Carbon Dioxide 23 mmol/L (22-30) 07/11/17 09:50 Anion Gap 10 mmol/L 07/11/17 09:50 BUN 116 mg/dL (9-20) H* 07/11/17 09:50 Creatinine 2.57 mg/dL (0.66-1.25) H 07/11/17 09:50 Est GFR (MDRD) Af Amer 30 (>60 ml/min/1.73 sqM) 07/11/17 09:50 Est GFR (MDRD) Non-Af 24 (>60 ml/min/1.73 sqM) 07/11/17 09:50 Glucose 96 mg/dL (74-99) 07/11/17 09:50 POC Glucose (mg/dL) 144 mg/dL (75-99) H 07/12/17 20:40 POC Glu Technical Programs Manager Farzaneh Trujillo 07/12/17 20:[address] Glu mg/dL 120 07/07/17 07:32 Hemoglobin A1c 5.8 % (4.0-6.0) 07/07/17 07:32 Plasma Lactic Acid [place] 0.9 mmol/L (0.7-2.0) 07/03/17 16:00 Calcium 8.0 mg/dL (8.4-10.2) L 07/11/17 09:50 Magnesium 2.1 mg/dL (1.6-2.3) 07/07/17 07:32 Total Bilirubin 0.3 mg/dL (0.2-1.3) 07/11/17 09:50 AST 27 U/L (17-59) 07/11/17 09:50 ALT 27 U/L (21-72) 07/11/17 09:50 Alkaline Phosphatase 75 U/L (38-126) 07/11/17 09:50 Total Creatine Kinase 41 U/L (55-170) L 07/03/17 16:00 CK-MB (CK-2) 0.6 ng/mL (0.0-2.4) 07/03/17 16:00 CK-MB (CK-2) Rel Index 1.5 07/03/17 16:00 Troponin I 0.132 ng/mL (0.000-0.034) H* 07/03/17 16:00 NT-Pro-B Natriuret Pep 28524 pg/mL 07/03/17 16:00 Total Protein 5.0 g/dL (6.3-8.2) L 07/11/17 09:50 Albumin 2.2 g/dL (3.5-5.0) L 07/11/17 09:50 Urine Color Yellow 07/03/17 16:49 Urine Appearance Clear (Clear) 07/03/17 16:49 Urine pH 6.0 (5.0-8.0) 07/03/17 16:49 Ur Specific [place] 1.009 (1.001-1.035) 07/03/17 16:49 Urine Protein 3+ (Negative) H 02/25/18 16:49 Urine Glucose (UA) Negative (Negative) 07/03/17 16:49 Urine Ketones Negative (Negative) 07/03/17 16:49 Urine Blood Moderate (Negative) H 07/03/17 16:49 Urine Nitrite Negative (Negative) 07/03/17 16:49 Urine Bilirubin Negative (Negative) 07/03/17 16:49 Urine Urobilinogen <2.0 mg/dL (<2.0) 07/03/17 16:49 Ur Leukocyte Esterase Small (Negative) H 07/03/17 16:49 Urine RBC 75 /hpf (0-5) H 07/03/17 16:49 Urine WBC 26 /hpf (0-5) H 07/03/17 16:49 Ur Squamous Epith Cells <1 /hpf (0-4) 07/03/17 16:49 Urine Bacteria Many /hpf (None) H 07/03/17 16:49 Hyaline Casts 1 /lpf (0-2) 07/03/17 16:49 Urine Mucus Rare /hpf (None) H 07/03/17 16:49 Tacrolimus 1.8 ng/mL (5.0-20.0) L 07/09/17 06:40 C. difficile (EIA) Intrp Negative (Negative) 07/08/17 23:54 Influenza Type A RNA Not Detected (Not Detectd) 07/04/17 10:04 Influenza Type B (PCR) Not Detected (Not Detectd) 07/04/17 10:04 Microbiology 07/10/17 19:45 Blood Blood Culture - Preliminary No Growth after 48 hours 07/03/17 16:00 Blood Blood Culture Gram Stain - Final 07/03/17 16:00 Blood Blood Culture - Final Klebsiella pneumoniae 07/03/17 16:49 Urine,Catheterized Urine Culture - Final Klebsiella pneumoniae 07/03/17 16:00 Blood Blood Culture - Final Assessment and Plan (1) CHF (congestive heart failure) Current Visit: Yes Status: Acute Code(s): I50.9 - HEART FAILURE, UNSPECIFIED SNOMED Code(s): 05604112 (2) UTI (urinary tract infection) Narrative/Plan: This pleasant 77 showed gentleman has been asked was multiple times is well- known to the service. Now presents with evidence of significant sepsis. Appears to have a urinary tract infection and with his history ampicillin sulbactam will be utilized until we have further information. Ongoing concern will be to the redevelopment of C. diff colitis given his history of prior events and fecal transplantation. The patient is very unhappy that he is so ill at this time. His psoriatic arthritis is stable at the moment. She has noted he does have leukocytosis and chronic renal failure. Urine culture does reveal evidence of a gram-negative bacilli and this is the likely source of his current sepsis. Probiotic therapy to be utilized if he can tolerate. 07/05/2017 reveals the patient to be considerably improved. He is now awake alert interactive and generally feeling better. He ingested his dinner without troubles. He apparently Has had a loose stool but no evidence for C. diff at this moment. This patient improves and gets ready for discharge to home fortunately oral antibiotic therapy and discharged with doxycycline 100 mg orally twice per day Utilize complete the course of his klebsiella urinary tract infection. As before continue probiotic therapy as he tolerates. Diarrhea will be monitored. 07/07/2017. The patient now has evidence of positive blood culture for the Klebsiella that was found in his urine. Consequently will not be able to utilize doxycycline but will complete his course of ciprofloxacin. After monitor him closely for redevelopment of C. diff colitis on antibiotic therapy. Continue probiotic therapy as before. Hopefully ready for discharge soon. 07/08/2017 patient has had worsening status. He is receiving oral antibiotic therapy with ciprofloxacin with attempts to reduce his much volume as possible with his worsening renal failure. He fortunately does not have C. diff. Rectal tube is in place because of the high-volume stools that he is producing. C. diff is negative 2 Some Questran will be added to see if this cannot bulk up his stool a bit given his current symptoms. The patient's poor prognosis is discussed with the and son-in-law. 07/11/2017 reveals the patient has now had an improvement of his status. Diarrhea is resolved. No longer has a rectal tube in place. His rectal area discomfort have improved with removal of the tube. He is eating although not very well but is denying nausea or emesis. Overall pains have improved. With his improved creatinine his mentation is improved although he is still irritated about his status. He also is very realistic about how he is going to get home if he is not able to assist in transfers as he routinely does. 07/12/2017. Patient has further improvement. His diarrhea is resolved. Eating well. Looks forward to going home. He will be transitioned to the oral ciprofloxacin to complete his course of therapy for his klebsiella urinary tract infection with bacteremia. Current Visit: No Status: Acute Code(s): N39.0 - URINARY TRACT INFECTION, SITE NOT SPECIFIED SNOMED Code(s): 56306401 (3) Chronic renal failure Current Visit: Yes Status: Acute Code(s): N18.9 - CHRONIC KIDNEY DISEASE, UNSPECIFIED SNOMED Code(s): 71428585
[2017-07-13 06:59] LABS: Glucose,Whole Blood 73 mg/dL (75-99)
[2017-07-13 07:32] VITALS: BP 142/74; PULSE 62; RESP 16; TEMP 97.5
[2017-07-13] MEDS: APIXABAN 2.5 MG TABLET PO SCH (07:58)
[2017-07-13] MEDS: REPAGLINIDE 1 MG TAB PO SCH ×2 (07:58→12:15)
[2017-07-13] MEDS: DIPHENOX-ATROP 2.5-0.025 MG 1 EACH TAB PO SCH (07:59)
[2017-07-13] MEDS: METOPROLOL TARTRATE 25 MG TAB PO SCH (07:59)
[2017-07-13] MEDS: CALCIUM CARB-VIT D 500MG-200UN 1 EACH TAB PO SCH (07:59)
[2017-07-13] MEDS: LACTOBACILLUS ACIDOPH & BULGAR 1 EACH PACKET PO SCH (07:59)
[2017-07-13] MEDS: GABAPENTIN 300 MG CAP PO SCH (07:59)
[2017-07-13] MEDS: ISOSORBIDE MONONITRATE ER 30 MG TAB.ER.24H PO SCH (07:59)
[2017-07-13] MEDS: FUROSEMIDE 20 MG TAB PO SCH (07:59)
[2017-07-13] MEDS: TAMSULOSIN 0.4 MG CAP.ER.24H PO SCH (08:00)
[2017-07-13] MEDS: TACROLIMUS 1 MG CAP PO SCH (08:00)
[2017-07-13] MEDS: predniSONE 10 MG TAB PO SCH (08:00)
[2017-07-13] MEDS: NYSTATIN 100,000UNIT/GM CREAM 30 GM TUBE TOPICAL SCH (08:01)
[2017-07-13] MEDS: CIPROFLOXACIN IVPB SCH (08:11)
[2017-07-13] MEDS: DEXTROSE IVPB SCH (08:11)
[2017-07-13] MEDS: [UNRECOGNIZED DRUG - OTHER] IVPB SCH (08:11)
[2017-07-13] MEDS: CHOLESTYRAMINE (WITH SUGAR) 4 GM PACKET PO SCH (09:34)
[2017-07-13] MEDS: MULTIVITAMINS, THERA 1 EACH TAB PO SCH (11:14)
[2017-07-13 11:40] LABS: Glucose,Whole Blood 108 mg/dL (75-99)
== END 2017-07-13 14:24 | disposition home health service (06) | DRG 871 ==
LOC: EC 14:58 → 6SEL 17:34 → 4MS4W 07-06 17:40
PROVIDERS: ADMIT Hospitalist; ATTEND Hospitalist
DX: A41.50 Gram-negative sepsis, unspecified (principal); N17.0 Acute kidney failure with tubular necrosis; I50.23 Acute on chronic systolic (congestive) heart failure; G93.41 Metabolic encephalopathy; J15.0 Pneumonia due to Klebsiella pneumoniae; K52.1 Toxic gastroenteritis and colitis; I48.0 Paroxysmal atrial fibrillation; I13.0 Hypertensive heart and chronic kidney disease with heart failure and stage 1 through stage 4 chronic kidney disease, or unspecified chronic kidney disease; I48.2 Chronic atrial fibrillation; N18.4 Chronic kidney disease, stage 4 (severe); I48.1 Persistent atrial fibrillation; N39.0 Urinary tract infection, site not specified; N04.1 Nephrotic syndrome with focal and segmental glomerular lesions; L40.50 Arthropathic psoriasis, unspecified; I45.10 Unspecified right bundle-branch block; H91.90 Unspecified hearing loss, unspecified ear; E78.5 Hyperlipidemia, unspecified; R26.9 Unspecified abnormalities of gait and mobility; T38.0X5A Adverse effect of glucocorticoids and synthetic analogues, initial encounter; E87.6 Hypokalemia; T50.2X5A Adverse effect of carbonic-anhydrase inhibitors, benzothiadiazides and other diuretics, initial encounter; D63.8 Anemia in other chronic diseases classified elsewhere; M19.90 Unspecified osteoarthritis, unspecified site; R62.7 Adult failure to thrive; T36.95XA Adverse effect of unspecified systemic antibiotic, initial encounter; G89.29 Other chronic pain; R73.03 Prediabetes; Z87.19 Personal history of other diseases of the digestive system; Z98.1 Arthrodesis status; Z83.3 Family history of diabetes mellitus; Z82.49 Family history of ischemic heart disease and other diseases of the circulatory system; Z85.828 Personal history of other malignant neoplasm of skin; Z87.441 Personal history of nephrotic syndrome; Z87.440 Personal history of urinary (tract) infections; Z86.69 Personal history of other diseases of the nervous system and sense organs; Z86.73 Personal history of transient ischemic attack (TIA), and cerebral infarction without residual deficits; Z86.19 Personal history of other infectious and parasitic diseases; Z79.899 Other long term (current) drug therapy; Z79.01 Long term (current) use of anticoagulants; Z79.52 Long term (current) use of systemic steroids; Z88.1 Allergy status to other antibiotic agents; Z88.8 Allergy status to other drugs, medicaments and biological substances
CPT/HCPCS: 36415; 51702; 70450; 71045; 71046; 74230; 80048; 80053; 80197; 81001; 82550; 82553; 83036; 83605; 83735; 83880; 84484; 85025; 85027; 85610; 85730; 87040; 87077; 87086; 87186; 87324; 87502; 93005; 96361; 96374; 99285